=== PATIENT | female | born 1935 | race Caucasian/White ===

== ENCOUNTER 2016-11-21 13:22 | Outpatient (RCR) | payer MEDICARE, OTHER ==
--- OUTSIDE RECORDS SUMMARY | 2016-11-07 12:31 | XMS REPORT | Continuity of Care Document ---
Author Author [facility] Organization [facility] Address Unknown Phone Unavailable Care Team Providers Care Gas Meter Checker Name Role Phone PCP Unavailable Source Comments Some departments are not documenting in the electronic medical record. If you do not see the information that you expected, contact Release of Information in the Health Information Management department at [phone] for further assistance in locating additional records.[facility] Active Allergies and Adverse Reactions Allergen Noted Date Severity Reactions Comments Pcn 04/13/2013 RASH Tetracycline Hcl 04/13/2013 NAUSEA AND VOMITING Current Medications Prescription Sig. Disp. Refills Start End Date Status Date simvastatin (ZOCOR) 20 mg Take 20 mg by mouth at Active tablet bedtime daily. triazolam (HALCION) 0.25 Take 0.25 mg by mouth at Active mg tablet bedtime as needed. diltiazem CD (CARDIZEM Take 120 mg by mouth Active CD) 120 mg capsule daily. celecoxib (CELEBREX) 100 Take 100 mg by mouth Active mg capsule twice daily. esomeprazole DR(+) Take 40 mg by mouth every Active (NEXIUM) 40 mg capsule morning. WARFARIN SODIUM (WARFARIN Take by mouth. 2 mg on Active PO) Saturday, Saturday, and Saturday, then 4 mg on Saturday, Saturday, and Saturday aspirin 325 mg tablet Take 162.5 mg by mouth Active daily. SODIUM FLUORIDE 1 Dose by dental route Active (PREVIDENT DT) daily. Epinastine 0.05 % Drop Place 1 Drop into or Active around eye(s). One drop each eye BID traMADol (ULTRAM) 50 mg Take 50 mg by mouth at Active tablet bedtime daily. amitriptyline (ELAVIL) 10 Take 1 Tab by mouth at 30 Tab 2 04/13/20 Active mg tablet bedtime daily. 13 Active Problems Problem Noted Date Erythromelalgia (HCC) 04/14/2013 Social History Tobacco Use Types Packs/Day Years Used Date Never Smoker Last Filed Vital Signs Vital Sign Reading Time Taken Blood Pressure 126/77 04/13/2013 2:05 PM CDT Pulse 90 04/13/2013 2:05 PM CDT Temperature 36.2 C (97.1 F) 04/13/2013 2:04 PM CDT Respiratory Rate 16 04/13/2013 2:04 PM CDT Height 1.651 m (5' 5") 04/13/2013 2:04 PM CDT Weight 56.7 kg (125 lb) 04/13/2013 2:04 PM CDT Body Mass Index 20.8 04/13/2013 2:04 PM CDT Oxygen Saturation - - Plan of Care Health Maintenance Due Date Last Done Comments Physical (Comprehensive) 1942 Exam Pertussis Vaccine 1946 Tetanus Vaccine 1952 Shingles Vaccine 1995 Osteoporosis Screening 2000 Prevnar/Pneumovax (#1) 2000 Influenza Vaccine 05/31/2016 Results from Last 3 Months Not on file
[~2016-11-21 13:22] MED LIST: ALN70T; ASCO500T20; ASP325T PO; ASP81TEC; ASPI-84 PO; AVALIDE; CALC-80 PO; CEPH500C PO; CHOL200018 PO; CLCX100C PO; CLCX200C PO; CLIN-81 PO; COUMADIN; DIGO125T91; DIGO250T PO; DILT120C PO; DILT120T11 PO; EPIN5DRO3 OU; ESTR42.52 VG; ETD400T; EZET10TA5; FISH1CAP15 PO; FLAX100031 PO; GABA-486 PO; HALO0.5T; HCT25T; HYDR-3816 PO; HYDR1TAB PO; LORTAB 500 MG; LVF500T PO; MELO15TA14; METH5TAB2 PO; METR500T PO; MULT-974 PO; NAPR220C11 PO; NF-ESOM40C PO; NFTRIAZ.25 PO; NITR100C PO; ONDA8TAB13 PO; POTA99TA7 PO; RPN.25T; SIMV20TA3 PO; SIMV40TA2 PO; SMV20T PO; SODI100P15 DT; SULF-109 PO; SULF1TAB38 PO; TRAM50TA2 PO; VICODIN; WARF4TAB PO; WRF2T PO; [UNRECOGNIZED DRUG - OTHER]; [UNRECOGNIZED DRUG - OTHER] PO; elestat OU
== END 2016-11-21 16:00 | disposition home or self-care (01) ==
LOC: WOUNDCARE 13:22
PROVIDERS: ATTEND Surgery
DX: L97.311 Non-pressure chronic ulcer of right ankle limited to breakdown of skin (principal); M89.0 Algoneurodystrophy
CPT/HCPCS: 97597; 99212

== ENCOUNTER 2016-12-04 11:31 | Outpatient (RCR) | payer MEDICARE, OTHER ==
--- OUTSIDE RECORDS SUMMARY | 2016-12-04 11:35 | XMS REPORT | Continuity of Care Document ---
Author Author [facility] Organization [facility] Address Unknown Phone Unavailable Care Team Providers Care Personal Companion Name Role Phone PCP Unavailable Source Comments Some departments are not documenting in the electronic medical record. If you do not see the information that you expected, contact Release of Information in the Health Information Management department at [phone] for further assistance in locating additional records.[facility] Active Allergies and Adverse Reactions Allergen Noted [...]
== END 2016-12-04 16:00 | disposition home or self-care (01) ==
LOC: WOUNDCARE 11:31
PROVIDERS: ATTEND Surgery
DX: I89.0 Lymphedema, not elsewhere classified (principal); M89.0 Algoneurodystrophy
CPT/HCPCS: 99212

== ENCOUNTER 2017-01-30 13:56 | Outpatient (RCR) | payer MEDICARE, OTHER | END 2017-01-30 16:00 | disposition home or self-care (01) | LOC: WOUNDCARE 13:56 | PROVIDERS: ATTEND Surgery | DX: L97.312 Non-pressure chronic ulcer of right ankle with fat layer exposed (principal); I87.331 Chronic venous hypertension (idiopathic) with ulcer and inflammation of right lower extremity; I70.233 Atherosclerosis of native arteries of right leg with ulceration of ankle; G90.523 Complex regional pain syndrome I of lower limb, bilateral | CPT/HCPCS: 29581; 99212 ==

== ENCOUNTER → 2017-05-07 | Outpatient (CLI) | payer MEDICARE, OTHER | LOC: CARD 13:24 | PROVIDERS: ATTEND Physician Assistant | DX: I48.2 Chronic atrial fibrillation (principal); I25.10 Atherosclerotic heart disease of native coronary artery without angina pectoris; I10 Essential (primary) hypertension; E78.2 Mixed hyperlipidemia | CPT/HCPCS: 93306 ==

== ENCOUNTER 2017-10-14 11:33 | Emergency (ER) | payer MEDICARE, OTHER ==
[~2017-10-14] VITALS: Ht 160 cm; Wt 55.3 kg
[~2017-10-14 11:33] MED LIST changes: +ESTR42.52 TOP; -ESTR42.52 VG
--- OUTSIDE RECORDS SUMMARY | 2017-10-14 11:39 | XMS REPORT | Clinical Summary ---
Author Author [facility] Organization [facility] Address Unknown Phone Unavailable Care Team Providers Care Etched Circuit Processor Name Role Phone PCP Unavailable Source Comments Some departments are not documenting in the electronic medical record. If you do not see the information that you expected, contact Release of Information in the Health Information Management department at [phone] for further assistance in locating additional records.[facility] Allergies Active Allergy Reactions Severity Noted Date Comments Penicillins RASH 04/13/2013 Tetracycline Hcl NAUSEA AND VOMITING 04/13/2013 Current Medications Prescription Sig. Disp. Refills Start [...] Types Packs/Day Years Used Date Never Smoker Sex Assigned at Date Recorded Not on file Last Filed Vital Signs Vital Sign Reading Time Taken Blood Pressure 126/77 04/13/2013 2:05 PM CDT Pulse 90 04/13/2013 2:05 PM CDT Temperature 36.2 C (97.1 F) 04/13/2013 2:04 PM CDT Respiratory Rate 16 04/13/2013 2:04 PM CDT Oxygen Saturation - - Inhaled Oxygen - - Concentration Weight 56.7 kg (125 lb) 04/13/2013 2:04 PM CDT Height 165.1 cm (5' 5") 04/13/2013 2:04 PM CDT Body Mass Index 20.8 04/13/2013 2:04 PM CDT Plan of Treatment Health Maintenance Due Date Last Done Comments PHYSICAL (COMPREHENSIVE) 1942 EXAM PERTUSSIS VACCINE 1946 TETANUS VACCINE 1952 SHINGLES VACCINE 1995 OSTEOPOROSIS SCREENING 2000 PREVNAR/PNEUMOVAX (#1) 2000 INFLUENZA VACCINE 04/30/2017 Results Not on filefrom Last 3 Months
--- OUTSIDE RECORDS SUMMARY | 2017-10-14 11:41 | XMS REPORT | Continuity Of Care Document ---
Author Author [facility] Organization [facility] Address [address] [place] [address] Phone Care Team Providers Care Supplier Relationship Director Name Role Phone MARIA LUISA ESPARZA, NUBIA Shah AT SERGEI ROMAN MD PP Results Lab Results Visit/Account #[id number] (July 08, 2015 10:35am - July 09, 2015 11:15am ) Test Result Date/Time 58509-7: PROTHROMBIN TIME WITH INR PROTHROMBIN TIME(12.1-14.0 SEC) 13.4 SEC July 08, 2015 11:21am 96132-8: INR 1.01 Result Comments: INR reference interval applies to patients on anticoagulant therapy. Suggested INR therapeutic range for oral anticoagulant therapy: (Stabilized anticoagulated patients) Routine Therapy: 2.0 to 3.0 Recurrent Myocardial Infarction: 2.5 to 3.5 Mechanical Prosthetic Valves: 2.5 to 3.5 July 08, 2015 11:21am PARTIAL THROMBOPLASTIN TIME PARTIAL THROMBOPLASTIN TIME(22.2-37.4 SEC) 27.5 SEC July 08, 2015 11:21am Microbiology Results Visit/Account #[id number] (July 08, 2015 10:35am - July 09, 2015 11:15am ) Procedure Result 01776-2: MRSA SCREEN FOR INFEC CONTROL 11827-6: MRSA SCREEN FOR INFEC CONTROL Result Instance On July 08, 2015 5:33pm Source: [facility] Special Result Comments: No growth Allergies and Adverse Reactions Allergies and Adverse Reactions Patient Unit Number: [id number] Agent Type Reaction Severity Status SULFA (SULFONAMIDE ANTIBIOTICS) Drug Allergy Unknown Mild Active HYDROCHLOROTHIAZIDE Drug Allergy Unknown Mild Active TETRACYCLINE Drug Allergy Unknown Mild Active CLINDAMYCIN Drug Allergy Unknown Mild Active AMIODARONE Drug Allergy Unknown Mild Active LEVOFLOXACIN Drug Allergy rash Unknown Active DRONEDARONE Drug Allergy Unknown Mild Active PENICILLIN Drug Allergy Unknown Moderate Active Problem List Problem List Visit/Account #[id number] (July 08, 2015 10:35am - July 09, 2015 11:15am ) Active Problems: Code/Condition Comments Documented Start Date Documented Resolved Date Code (s) 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, BILATERAL July 09, 2015 Z23 ENCOUNTER FOR IMMUNIZATION July 09, 2015 R20.0 ANESTHESIA OF SKIN July 09, 2015 M62.81 MUSCLE WEAKNESS (GENERALIZED) July 09, 2015 I10 ESSENTIAL (PRIMARY) HYPERTENSION July 09, 2015 I48.91 UNSPECIFIED ATRIAL FIBRILLATION July 09, 2015 Z79.01 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 (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) USE OF ANTICOAGULANTS July 09, 2015 Z79.899 OTHER GROUP HOME (CURRENT) DRUG THERAPY July 09, 2015 Plan of Care Plan Of Care Visit/Account #[id number] (July 08, 2015 10:35am - July 09, 2015 11:15am ) Patient Instructions Instructions DI for Laminectomy Hydrocodone Vital Signs Vital Signs Visit/Account #[id number] (July 08, 2015 10:35am - July 09, 2015 11:15am ) Sign First Result Last Result Code(s) Blood Pressure 156/ 101 mm[Hg] On July 08, 2015 4:20pm 120/ 67 mm[Hg] On July 09, 2015 6:16am 8480-6 BP Systolic Heart Rate/Pulse Pulse Rate (adult): 86 /min On July 08, 2015 5:26pm Pulse Rate (adult): 94 /min On July 09, 2015 6:16am 8867-4 Heart Rate 8893-0 Pulse rate Respiratory Rate Respiratory Rate: 20 /min On July 08, 2015 4:20pm Respiratory Rate: 16 /min On July 09, 2015 6:16am 9279-1 Respiratory rate Temperature in Fahrenheit Temperature (Fahrenheit): 96.9 [degF] On July 08, 2015 11:04am Temperature (Fahrenheit): 96.9 [degF] On July 09, 2015 6:16am 8310-5 Body Temperature Functional Status Functional and Cognitive Status No Functional Status Data Medications Home Medications - Medications that the patient was taking prior to arrival at the hospital Visit/Account #[id number] (July 08, 2015 10:35am - July 09, 2015 11:15am ) Medication Route Sig/Schedule Precondition/Indication Comments/Instructions Codes Warfarin Sodium(WARFARIN SODIUM) 4 MG TABLET Dose: 4 MG ORAL TAKE ON ,,YUNIOR,SAT Rx Note Text Comments: 07/06/15: has stopped for upcoming surgery. Warfarin Sodium 4 MG Oral Tablet (RxNorm): 462171 Warfarin Sodium (WARFARIN SODIUM) NDC: 62497804188 Warfarin Sodium(WARFARIN SODIUM) 2 MG TABLET Dose: 2 MG ORAL SAT,SAT,SAT Rx Note Text Comments: 07/06/15: has stopped for upcoming surgery. Warfarin Sodium 2 MG Oral Tablet (RxNorm): 331988 Warfarin Sodium (WARFARIN SODIUM) NDC: 48317217962 Simvastatin(SIMVASTATIN) 20 MG TABLET Dose: 20 MG ORAL AT BEDTIME Simvastatin 20 MG Oral Tablet (RxNorm): 930146 Simvastatin (SIMVASTATIN) NDC: 37495664075 CARDIZEM(DILTIAZEM HCL) 120 MG TABLET Dose: 120 MG ORAL AT BEDTIME Diltiazem Hydrochloride 120 MG Oral Tablet [Cardizem] (RxNorm): 108726 CARDIZEM (DILTIAZEM HCL) NDC: 40248833435 Gabapentin(GABAPENTIN) 100 MG CAPSULE Dose: 100 MG ORAL TWICE A DAY gabapentin 100 MG Oral Capsule (RxNorm): 449169 Gabapentin (GABAPENTIN) NDC: 45404232371 Triazolam(TRIAZOLAM) 0.25 MG TABLET Dose: 0.25 MG ORAL AT BEDTIME Triazolam 0.25 MG Oral Tablet (RxNorm): 017801 Triazolam (TRIAZOLAM) NDC: 08760063562 NEXIUM(ESOMEPRAZOLE MAG TRIHYDRATE) 40 MG CAP Dose: 40 MG ORAL NEEDED UPSET STOMACH Esomeprazole 40 MG Delayed Release Oral Capsule [Nexium] (RxNorm): 815222 NEXIUM (ESOMEPRAZOLE MAG TRIHYDRATE) NDC: 19947898287 Methadone Hcl(METHADONE HCL) 5 MG TABLET Dose: 5 MG ORAL TWICE A WEEK TAKES ON AND SAT MORNING Methadone Hydrochloride 5 MG Oral Tablet [Dolophine] (RxNorm): 408542 Methadone Hcl (METHADONE HCL) NDC: 44920837806 MULTIVITAMINS(MULTIVITAMIN) 1 EACH TAB.CHEW Dose: 1 EACH ORAL DAILY MULTIVITAMINS (MULTIVITAMIN) NDC: 72982565545 Calcium Citrate + D Caplet(CALCIUM ACETATE/AL SULFATE) 1 TAB TABLET Dose: 1 TAB ORAL TWICE A DAY Calcium Citrate + D Caplet (CALCIUM ACETATE/AL SULFATE) NDC: 68222946214 Fish Oil 1,200 Mg Softgel(FISH OIL/DHA/EPA) 1 CAP CAPSULE Dose: 1 CAP ORAL DAILY Fish Oil 1,200 Mg Softgel (FISH OIL/DHA/EPA) NDC: 05807393685 VITAMIN D3(CHOLECALCIFEROL (VITAMIN D3)) 1000 UNIT CAPSULE Dose: 1000 UNIT ORAL DAILY Cholecalciferol 1000 UNT Oral Capsule (RxNorm): 913900 VITAMIN D3 (CHOLECALCIFEROL (VITAMIN D3)) NDC: 54344074592 ALEVE(NAPROXEN) 220 MG TABLET Dose: 220 MG ORAL NEEDED PAIN OR FEVER Naproxen sodium 220 MG Oral Tablet [Aleve] (RxNorm): 005077 ALEVE (NAPROXEN) NDC: 29382208119 Potassium Gluconate(POTASSIUM GLUCONATE) 595 ( 99 )MG TABLET Dose: 595 MG ORAL DAILY Potassium gluconate 2.5 MEQ Oral Tablet (RxNorm): 220548 Potassium Gluconate (POTASSIUM GLUCONATE) NDC: 69529117843 MOBIC(MeloxiCAM) 15 MG TABLET Dose: 15 MG ORAL DAILY NECK PAIN meloxicam 15 MG Oral Tablet [Mobic] (RxNorm): 600825 MOBIC (MeloxiCAM) NDC: 04118249833 VITAMIN B12(CYANOCOBALAMIN) 1000 MCG TABLET.ER Dose: 2500 MCG ORAL DAILY Vitamin B 12 1 MG Extended Release Oral Tablet (RxNorm): 255342 VITAMIN B12 (CYANOCOBALAMIN) NDC: 03182503226 Inpatient/Ordered Medications - Medications administered during hospital visit Visit/Account #[id number] (July 08, 2015 10:35am - July 09, 2015 11:15am ) Medication Route Sig/Schedule Precondition/Indication Comments/Instructions Codes IV Medication Carriers: VANCOCIN 1 GM/200 ML PM(VANCOMYCIN/DEXTROSE,ISO-OSM) 1 GM/200 ML INJECTION Dose: 200 ML INTRAVEN .Preop (Rate: 200 MLS/HR Duration: 1 HR) Clinical Indication: ABX Surgical Postop Rx Order Comments: Order filed UNV: Dose Warnings differ from electronic court recorder Label Comments: To be given by surgical staff within 2 hours of surgical incision Carriers: Vancomycin 5 MG/ML Injectable Solution (RxNorm): 376779 VANCOCIN 1 GM/200 ML PM (VANCOMYCIN/DEXTROSE,ISO-OSM) NDC: 03447737724 PEPCID INJ(FAMOTIDINE) 20 MG/2 ML INJECTION Dose: 2 ML INTRAVEN .PSCU.TRIPP Rx Order Comments: Order placed as verified: Dose Warnings differ from electronic court recorder Dose Warnings differ from electronic court recorder Label Comments: Push over at least 2 minutes Famotidine 10 MG/ML Injectable Solution (RxNorm): 946044 PEPCID INJ (FAMOTIDINE) NDC: 13690103114 ZOFRAN INJ(ONDansetron HCL) 4 MG/2 ML INJECTION Dose: 2 ML INTRAVEN .PSCU.TRIPP Rx Order Comments: Order placed as verified: Dose Warnings differ from electronic court recorder Dose Warnings differ from electronic court recorder Ondansetron 2 MG/ML Injectable Solution (RxNorm): 496884 ZOFRAN INJ (ONDansetron HCL) NDC: 15597620619 XYLOCAINE 1%- EPINEPHRINE (1:971591)(LIDOCAINE/EPINEPHRINE) 20 ML INJECTION Dose: 20 ML Route .STK-MED Epinephrine 0.01 MG/ML / Lidocaine Hydrochloride 10 MG/ML Injectable Solution [Xylocaine wit (RxNorm): 7975569 XYLOCAINE 1%- EPINEPHRINE (1:164817) (LIDOCAINE/EPINEPHRINE) NDC: 78013699735 GELFOAM SPONGE SZ 50(GELATIN) 1 EA MISC Dose: 1 EA TOPICALLY .STK-MED GELFOAM SPONGE SZ 50 (GELATIN) NDC: 58597210347 DILAUDID(HYDROmorphone HCL) 2 MG/ML INJECTION Dose: 2 MG Route .STK-MED 1 ML Hydromorphone Hydrochloride 2 MG/ML Prefilled Syringe (RxNorm): 606418 DILAUDID (HYDROmorphone HCL) NDC: 65853947492 BENADRYL INJ(DiphenhydrAMINE HCL) 50 MG/ML INJECTION Dose: 0.25 ML INTRAVEN NOW Label Comments: MAY INCREASE FALL RISK Special Dose Instructions: now x 1 in pacu only Diphenhydramine Hydrochloride 50 MG/ML Injectable Solution (RxNorm): 1808088 BENADRYL INJ (DiphenhydrAMINE HCL) NDC: 49628962449 IV Medication Carriers: LR(LACTATED RINGER'S) 1000 ML INJECTION Dose: 1000 ML INTRAVEN .Q10H (Rate: 100 MLS/HR Duration: 10 HR) Carriers: Calcium Chloride 0.0014 MEQ/ML / Potassium Chloride 0.004 MEQ/ML / Sodium Chloride 0.103 MEQ (RxNorm): 578016 LR (LACTATED RINGER'S) NDC: 84670269234 COLACE(DOCUSATE SODIUM) 100 MG CAP Dose: 100 MG ORAL TWICE A DAY Docusate Sodium 100 MG Oral Capsule (RxNorm): 2673096 COLACE (DOCUSATE SODIUM) NDC: 87112788484 CITRACAL D 315 MG/200 UNIT(CHRYSTAL CIT MAL/CHOLECALCIFEROL) 1 TAB TAB Dose: 1 TAB ORAL TWICE A DAY Label Comments: TAKE WITH FOOD Calcium Citrate 1500 MG / Cholecalciferol 250 UNT Oral Tablet (RxNorm): 425567 CITRACAL D 315 MG/200 UNIT (CHRYSTAL CIT MAL/CHOLECALCIFEROL) NDC: 62623754422 NEURONTIN(GABAPENTIN) 100 MG CAP Dose: 100 MG ORAL TWICE A DAY Label Comments: MAY INCREASE FALL RISK gabapentin 100 MG Oral Capsule (RxNorm): 229905 NEURONTIN (GABAPENTIN) NDC: 00279547398 MULTIVITAMINS/FOLIC AC/VIT C 1 TAB TAB Dose: 1 TAB ORAL DAILY (MULTIVITAMINS/FOLIC AC/VIT C) NDC: 68206081656 ALEVE(NAPROXEN) 220 MG TAB Dose: 220 MG ORAL NEEDED PRN Reason: PAIN OR FEVER Naproxen sodium 220 MG Oral Tablet (RxNorm): 860424 ALEVE (NAPROXEN) NDC: 73698943959 ZOCOR(SIMVASTATIN) 20 MG TAB Dose: 20 MG ORAL AT BEDTIME Label Comments: TERATOGENIC. WOMEN SHOULD NOT HANDLE OR CRUSH. Simvastatin 20 MG Oral Tablet (RxNorm): 430182 ZOCOR (SIMVASTATIN) NDC: 56924248901 HALCION(TRIAZOLAM) 0.125 MG TAB Dose: 0.25 MG ORAL AT BEDTIME Label Comments: MAY INCREASE FALL RISK Triazolam 0.125 MG Oral Tablet (RxNorm): 307194 HALCION (TRIAZOLAM) NDC: 92302191291 Discharge Medications - Medications that patient should continue to take. Review with physician Visit/Account #[id number] (July 08, 2015 10:35am - July 09, 2015 11:15am ) Medication Route Sig/Schedule Precondition/Indication Comments/Instructions Codes Warfarin Sodium(WARFARIN SODIUM) 4 MG TABLET Dose: 4 MG ORAL TAKE ON S,,YUNIOR,SAT Rx Note Text Comments: 07/06/15: has stopped for upcoming surgery. Warfarin Sodium 4 MG Oral Tablet (RxNorm): 296444 Warfarin Sodium (WARFARIN SODIUM) NDC: 94389928476 Warfarin Sodium(WARFARIN SODIUM) 2 MG TABLET Dose: 2 MG ORAL MON,WED,FRI Rx Note Text Comments: 07/06/15: has stopped for upcoming surgery. Warfarin Sodium 2 MG Oral Tablet (RxNorm): 365990 Warfarin Sodium (WARFARIN SODIUM) NDC: 73063749575 Simvastatin(SIMVASTATIN) 20 MG TABLET Dose: 20 MG ORAL AT BEDTIME Simvastatin 20 MG Oral Tablet (RxNorm): 863930 Simvastatin (SIMVASTATIN) NDC: 66111661076 CARDIZEM(DILTIAZEM HCL) 120 MG TABLET Dose: 120 MG ORAL AT BEDTIME Diltiazem Hydrochloride 120 MG Oral Tablet [Cardizem] (RxNorm): 608411 CARDIZEM (DILTIAZEM HCL) NDC: 72636093583 Gabapentin(GABAPENTIN) 100 MG CAPSULE Dose: 100 MG ORAL TWICE A DAY gabapentin 100 MG Oral Capsule (RxNorm): 135127 Gabapentin (GABAPENTIN) NDC: 98963614903 Triazolam(TRIAZOLAM) 0.25 MG TABLET Dose: 0.25 MG ORAL AT BEDTIME Triazolam 0.25 MG Oral Tablet (RxNorm): 149700 Triazolam (TRIAZOLAM) NDC: 74035710060 NEXIUM(ESOMEPRAZOLE MAG TRIHYDRATE) 40 MG CAP Dose: 40 MG ORAL NEEDED UPSET STOMACH Esomeprazole 40 MG Delayed Release Oral Capsule [Nexium] (RxNorm): 715992 NEXIUM (ESOMEPRAZOLE MAG TRIHYDRATE) NDC: 86975797886 Methadone Hcl(METHADONE HCL) 5 MG TABLET Dose: 5 MG ORAL TWICE A WEEK TAKES ON AND SAT MORNING Methadone Hydrochloride 5 MG Oral Tablet [Dolophine] (RxNorm): 968154 Methadone Hcl (METHADONE HCL) NDC: 53482077877 MULTIVITAMINS(MULTIVITAMIN) 1 EACH TAB.CHEW Dose: 1 EACH ORAL DAILY MULTIVITAMINS (MULTIVITAMIN) NDC: 01238575548 Calcium Citrate + D Caplet(CALCIUM ACETATE/AL SULFATE) 1 TAB TABLET Dose: 1 TAB ORAL TWICE A DAY Calcium Citrate + D Caplet (CALCIUM ACETATE/AL SULFATE) NDC: 65593328925 Fish Oil 1,200 Mg Softgel(FISH OIL/DHA/EPA) 1 CAP CAPSULE Dose: 1 CAP ORAL DAILY Fish Oil 1,200 Mg Softgel (FISH OIL/DHA/EPA) NDC: 30037945488 VITAMIN D3(CHOLECALCIFEROL (VITAMIN D3)) 1000 UNIT CAPSULE Dose: 1000 UNIT ORAL DAILY Cholecalciferol 1000 UNT Oral Capsule (RxNorm): 713881 VITAMIN D3 (CHOLECALCIFEROL (VITAMIN D3)) NDC: 15321050779 ALEVE(NAPROXEN) 220 MG TABLET Dose: 220 MG ORAL NEEDED PAIN OR FEVER Naproxen sodium 220 MG Oral Tablet [Aleve] (RxNorm): 179838 ALEVE (NAPROXEN) NDC: 07773705776 Potassium Gluconate(POTASSIUM GLUCONATE) 595 ( 99 )MG TABLET Dose: 595 MG ORAL DAILY Potassium gluconate 2.5 MEQ Oral Tablet (RxNorm): 362190 Potassium Gluconate (POTASSIUM GLUCONATE) NDC: 36013478709 MOBIC(MeloxiCAM) 15 MG TABLET Dose: 15 MG ORAL DAILY NECK PAIN meloxicam 15 MG Oral Tablet [Mobic] (RxNorm): 491696 MOBIC (MeloxiCAM) NDC: 89046803023 VITAMIN B12(CYANOCOBALAMIN) 1000 MCG TABLET.ER Dose: 2500 MCG ORAL DAILY Vitamin B 12 1 MG Extended Release Oral Tablet (RxNorm): 926963 VITAMIN B12 (CYANOCOBALAMIN) NDC: 37229341440 COLACE(DOCUSATE SODIUM) 100 MG CAPSULE Dose: 100 MG ORAL TWICE A DAY Docusate Sodium 100 MG Oral Capsule [Colace] (RxNorm): 1890311 COLACE (DOCUSATE SODIUM) ND: 71304663699 HYDROcodone BIT/ACETAMINOPHEN 7.5-325 MG(HYDROcodone BIT/ACETAMINOPHEN) 1 EACH TABLET Dose: 1-2 TAB ORAL Q4H MODERATE PAIN Acetaminophen 325 MG / Hydrocodone Bitartrate 7.5 MG Oral Tablet (RxNorm): 980259 HYDROcodone BIT/ACETAMINOPHEN 7.5-325 MG (HYDROcodone BIT/ACETAMINOPHEN) ND: 94020593688 History Of Encounters Encounters Visit/Account #[id number] (July 08, 2015 10:35am - July 09, 2015 11:15am ) Account Status Physican Of Record Reason For Visit Visit Diagnosis Start Date/Time Stop Date/Time [facility] NUBIA GLASS MD 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 Discharge Instructions Discharge Instructions Visit/Account #[id number] (July 08, 2015 10:35am - July 09, 2015 11:15am ) DISCHARGE INSTRUCTIONS Physician Documentation PROVIDER INSTRUCTIONS Discharge Diet As Tolerated Discharge Activity/Weight Bearing Status No heavy lifting, bending, or twisting. No lifting over 10 lbs. Discharge Diet As Tolerated Discharge Activity/Weight Bearing Status No heavy lifting, bending, or twisting. No lifting over 10 lbs. REASON TO CALL PROVIDER Notify Physician if: Increased pain, redness. or swelling to incision. Temp over 101. Nausea or vomiting that do not resolve. FOLLOW UP APPOINTMENTS Follow Up With MARRY BEAVERS ON 08/24/15 AT 2:30P (1 MO POST OP) DR GLASS ON 10/12/15 AT 11:00A (3 MO POST OP) Social History Social History No Social History Data. Immunizations Immunizations Visit/Account #[id number] (July 08, 2015 10:35am - July 09, 2015 11:15am ) Immunization Date Comments/Instructions Codes FLUCELVAX (18+ YRS)(INFLUENZA VACC AGES 18 (PF)) 0.5 ML INJECTION July 09, 2015 9:52am FLUCELVAX (18+ YRS) (INFLUENZA VACC AGES 18 (PF)) CVX: 140 FLUCELVAX (18+ YRS) (INFLUENZA VACC AGES 18 (PF)) [facility]: [id number]
--- OUTSIDE RECORDS SUMMARY | 2017-10-14 11:42 | XMS REPORT | Continuity of Care Document ---
Author Author [facility] Organization [facility] Address Unknown Phone Unavailable Allergies Active Description Code Type Severity Reaction Onset Reported/Identified Relationship to Patient Clinical Status Yes Penicillins [id number] Drug Allergy Unknown N/A 10/31/2006 Yes sulfamethoxazole [id number] Drug Allergy Severe CHEST TIGHTNESS 03/15/2010 Yes trimethoprim [id number] Drug Allergy Severe CHEST TIGHTNESS 03/15/2010 Yes amiodarone [id number] Drug Allergy Moderate MADE HER COLD 04/12/2016 Yes clindamycin [id number] Drug Allergy Moderate HEARTBURN 04/12/2016 Yes dronedarone [id number] Drug Allergy Unknown N/A 04/12/2016 Yes hydrochlorothiazide [id number] Drug Allergy Unknown N/A 04/12/2016 Yes levofloxacin [id number] Drug Allergy Unknown CHEST TIGHTNESS 04/12/2016 Yes TETRACYLCLINE TETRACYLCLINE Unknown SEVERE HEARTBUR 04/12/2016 Yes metoprolol [id number] Drug Allergy Unknown N/A 04/18/2016 Yes Penicillins [id number] Drug Allergy Unknown RASH, HAS RECEI 04/18/2016 Medications There is no data. Problems Date Dx Coded Attending Type Code Diagnosis Diagnosed By 08/29/1599 MALLORY SOLIS MD Ot L97.311 NON-PRS CHRONIC ULCER OF RIGHT ANKLE CRUZ 08/29/1599 MALLORY SOLIS MD Ot M89.061 ALGONEURODYSTROPHY, RIGHT LOWER LEG 08/29/1599 MALLORY SOLIS MD Ot I89.0 LYMPHEDEMA, NOT ELSEWHERE CLASSIFIED 08/29/1599 MALLORY SOLIS MD, Ot M89.061 ALGONEURODYSTROPHY, RIGHT LOWER LEG 03/18/2010 Ot 272.4 03/18/2010 Ot 401.9 03/18/2010 Ot 427.31 03/18/2010 Ot 477.9 03/18/2010 Ot 787.02 03/18/2010 Ot 790.92 03/18/2010 Ot E930.8 03/18/2010 Ot V13.02 06/18/2013 VIJAY SIDDIQUI MD Ot 272.0 PURE HYPERCHOLESTEROLEM 06/18/2013 VIJAY SIDDIQUI MD Ot 272.4 HYPERLIPIDEMIA NEC/NOS 06/18/2013 VIJAY SIDDIQUI MD Ot 300.00 ANXIETY STATE NOS 06/18/2013 VIJAY SIDDIQUI MD Ot 401.9 HYPERTENSION NOS 06/18/2013 VIJAY SIDDIQUI MD Ot 414.[address] 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 06/18/2013 VIJAY SIDDIQUI MD Ot 785.1 PALPITATIONS 06/18/2013 VIJAY SIDDIQUI MD Ot 786.05 SHORTNESS OF BREATH 06/18/2013 VIJAY SIDDIQUI MD Ot 786.09 RESPIRATORY ABNORM NEC 06/18/2013 VIJAY SIDDIQUI MD Ot 786.50 CHEST PAIN NOS 02/20/2015 HAYDER VERGARA Ot 599.0 URIN TRACT INFECTION NOS 02/20/2015 HAYDER VERGARA Ot 616.10 VAGINITIS NOS 02/20/2015 HAYDER VERGARA Ot 625.9 FEM GENITAL SYMPTOMS NOS 02/26/2015 SERGEI ROMAN MD R Ot 722.52 03/18/2015 SERGEI ROMAN MD R Ot 722.52 06/09/2015 SERGEI ROMAN MD R Ot 722.52 06/29/2015 VIJAY SIDDIQUI MD Ot 272.4 06/29/2015 VIJAY SIDDIQUI MD Ot 401.9 06/29/2015 VIJAY SIDDIQUI MD Ot 414.9 06/29/2015 VIJAY SIDDIQUI MD Ot 427.31 07/06/2015 SERGEI ROMAN MD R Ot 722.52 07/06/2015 VIJAY SIDDIQUI MD Ot 272.4 07/06/2015 VIJAY SIDDIQUI MD Ot 401.9 07/06/2015 VIJAY SIDDIQUI MD Ot 414.9 07/06/2015 VIJAY SIDDIQUI MD Ot 427.31 07/06/2015 ABEL ESPARZA SERGEI R Ot 738.5 07/06/2015 ABEL ESPARZA, SERGEI R Ot V72.63 07/06/2015 ABEL ESPARZA, SERGEI R Ot V72.81 07/06/2015 ARTUR ESPARZA, VIJAY Covarrubias Ot 272.4 07/06/2015 ARTUR ESPARZA, VIJAY J Ot 401.9 07/06/2015 ARTUR ESPARZA, VIJAY J Ot 414.9 07/06/2015 ARTUR ESPARZA, MALIHAHAR J Ot 427.31 07/12/2015 ABEL ESPARZA, SERGEI R Ot 722.52 07/12/2015 ARTUR ESPARZA, VIJAY J Ot 272.4 07/12/2015 VIJAY SIDDIQUI MD Ot 401.9 07/12/2015 VIJAY SIDDIQUI MD Ot 414.9 07/12/2015 ARTUR ESPARZA, VIJAY J Ot 427.31 07/12/2015 ABEL ESPARZA, SERGEI R Ot 738.5 07/12/2015 ABEL ESPARZA SERGEI R Ot V72.63 07/12/2015 ABEL ESPARZA, SERGEI R Ot V72.81 07/13/2015 ROBERT CHILEL DO Ot G89.18 OTHER ACUTE POSTPROCEDURAL PAIN 07/15/2015 Ot 695.9 07/15/2015 Ot 782.0 07/15/2015 Ot 785.9 07/15/2015 Ot 401.9 07/15/2015 Ot 427.31 07/15/2015 VIJAY SIDDIQUI MD Ot 272.4 07/15/2015 VIJAY SIDDIQUI MD J Ot 396.3 07/15/2015 VIJAY SIDDIQUI MD J Ot 397.0 07/15/2015 ARTUR ESPARZA, VIJAY J Ot 401.9 07/15/2015 ARTUR ESPARZA, VIJAY J Ot 414.00 07/15/2015 VIJAY SIDDIQUI MD J Ot 427.31 07/15/2015 MATILDA ROMAN MDYD R Ot 722.52 07/15/2015 ARTUR ESPARZA, VIJAY J Ot 272.4 07/15/2015 VIJAY SIDDIQUI MD J Ot 401.9 07/15/2015 VIJAY SIDDIQUI MD J Ot 414.9 07/15/2015 VIJAY SIDDIQUI MD J Ot 427.31 07/15/2015 ABEL ESPARZA, SERGEI R Ot 738.5 07/15/2015 ABEL ESPARZA, SERGEI R Ot V72.63 07/15/2015 ABEL ESPARZA, SERGEI R Ot V72.81 07/15/2015 ARTUR ESPARZA, BASHAR J Ot 272.4 07/15/2015 ARTUR ESPARZA, BASHAR J Ot 401.9 07/15/2015 ARTUR ESPARZA, BASHAR J Ot 414.9 07/15/2015 ARTUR ESPARZA, BASHAR J Ot 427.31 07/15/2015 ABEL ESPARZA, SERGEI R Ot 738.5 07/15/2015 ABEL ESPARZA, SERGEI R Ot V72.63 07/15/2015 AEBL ESPARZA, SERGEI R Ot V72.81 07/15/2015 ABEL ESPARZA, SERGEI R Ot 722.52 07/15/2015 ARTUR ESPARZA, BASHAR J Ot 272.4 07/15/2015 ARTUR ESPARZA, BASHAR J Ot 396.3 07/15/2015 ARTUR ESPARZA, BASHAR J Ot 397.0 07/15/2015 ARTUR ESPARZA, BASHAR J Ot 401.9 07/15/2015 ARTUR ESPARZA, BASHAR J Ot 414.00 07/15/2015 ARTUR ESPARZA, BASHAR J Ot 427.31 07/20/2015 ABEL ESPARZA, SERGEI R Ot 738.5 07/20/2015 ABEL ESPARZA, SERGEI R Ot V72.63 07/20/2015 ABEL ESPARZA, SERGEI R Ot V72.81 07/20/2015 ARTUR ESPARZA, BASHAR J Ot 272.4 07/20/2015 ARTUR ESPARZA, BASHAR J Ot 401.9 07/20/2015 ARTUR ESPARZA, BASHAR J Ot 414.9 07/20/2015 ARTUR ESPARZA, BASHAR J Ot 427.31 07/26/2015 ABEL ESPARZA, SERGEI R Ot 738.5 07/26/2015 ABEL ESPARZA, SERGEI R Ot V72.63 07/26/2015 ABEL ESPARZA, SERGEI R Ot V72.81 07/27/2015 ABEL ESPARZA, SERGEI R Ot 738.5 07/27/2015 ABEL ESPARZA, SERGEI R Ot V72.63 07/27/2015 ABEL ESPARZA, SERGEI R Ot V72.81 09/02/2015 Ot 695.9 09/02/2015 Ot 782.0 09/02/2015 Ot 785.9 09/02/2015 Ot 401.9 09/02/2015 Ot 427.31 09/02/2015 ARTUR ESPARZA, VIJAY Covarrubias Ot 272.4 09/02/2015 ARTUR ESPARZA, VIJAY Covarrbuias Ot 396.3 09/02/2015 ARTUR ESPARZA, VIJAY Covarrubias Ot 397.0 09/02/2015 ARTUR ESPARZA, VIJAY Covarrubias Ot 401.9 09/02/2015 ARTUR ESPARZA, VIJAY Covarrubias Ot 414.00 09/02/2015 ARTUR ESPARZA, VIJAY J Ot 427.31 09/02/2015 ABEL ESPARZA, SERGEI R Ot 722.52 09/02/2015 ARTUR ESPARZA, VIJAY Covarrubias Ot 272.4 09/02/2015 ARTUR ESPARZA, VIJAY Covarrubias Ot 401.9 09/02/2015 VIJAY SIDDIQUI MD Ot 414.9 09/02/2015 VIJAY SIDDIQUI MD J Ot 427.31 09/02/2015 ABEL ESPARZA, SERGEI R Ot 738.5 09/02/2015 ABEL ESPARZA, SERGEI R Ot V72.63 09/02/2015 ABEL ESPARZA, SERGEI R Ot V72.81 09/02/2015 ABEL ESPARZA, SERGEI R Ot 722.52 09/02/2015 ARTUR ESPARZA, VIJAY Covarrubias Ot 272.4 09/02/2015 ARTUR ESPARZA, VIJAY Covarrubias Ot 401.9 09/02/2015 ARTUR ESPARZA, VIJAY J Ot 414.9 09/02/2015 ARTUR ESPARZA, VIJAY Covarrubias Ot 427.31 09/02/2015 ABEL ESPARZA, SERGEI R Ot 738.5 09/02/2015 ABEL ESPARZA, SERGEI R Ot V72.63 09/02/2015 ABEL ESPARZA, SERGEI R Ot V72.81 09/22/2015 VIJAY SIDDIQUI MD Ot E78.5 09/22/2015 VIJAY SIDDIQUI MD Ot I10 09/22/2015 VIJAY SIDDIQUI MD Ot I25.9 09/22/2015 VIJAY SIDDIQUI MD Ot I48.91 10/03/2015 VIJAY SIDDIQUI MD Ot E78.5 10/03/2015 VIJAY SIDDIQUI MD Ot I10 10/03/2015 VIJAY SIDDIQUI MD Ot I25.9 10/03/2015 VIJAY SIDDIQUI MD Ot I48.91 01/28/2016 HAYDER VERGARA Ot N76.4 ABSCESS OF VULVA 01/30/2016 HAYDER VERGARA Ot N76.4 ABSCESS OF VULVA 01/30/2016 HAYDER VERGARA Ot N76.4 ABSCESS OF VULVA 01/30/2016 HAYDER VERGARA Ot N76.4 ABSCESS OF VULVA 02/20/2016 HAYDER VERGARA Ot N76.4 ABSCESS OF VULVA 04/12/2016 SERGEI ROMAN MD Ot 722.52 LUMB/LUMBOSAC DISC DEGEN 04/12/2016 VIJAY SIDDIQUI MD Ot 272.4 HYPERLIPIDEMIA NEC/NOS 04/12/2016 VIJAY SIDDIQUI MD Ot 401.9 HYPERTENSION NOS 04/12/2016 VIJAY SIDDIQUI MD Ot 414.9 CHR ISCHEMIC HRT DIS NOS 04/12/2016 VIJAY SIDDIQUI MD Ot 427.31 ATRIAL FIBRILLATION 04/12/2016 VIJAY SIDDIQUI MD Ot E78.5 HYPERLIPIDEMIA, UNSPECIFIED 04/12/2016 VIJAY SIDDIQUI MD Ot I10 ESSENTIAL (PRIMARY) HYPERTENSION 04/12/2016 VIJAY SIDDIQUI MD Ot I25.9 CHRONIC ISCHEMIC HEART DISEASE, UNSPECIF 04/12/2016 VIJAY SIDDIQUI MD Ot I48.91 UNSPECIFIED ATRIAL FIBRILLATION 04/12/2016 SERGEI ROMAN MD Ot 738.5 OTHER ACQ BACK DEFORMITY 04/12/2016 SERGEI ROMAN MD Ot V72.63 PRE-PROCEDURAL LABORATORY EXAMINATION 04/12/2016 SERGEI ROMAN MD, Ot V72.81 [id number] CARDIOVASCULAR 04/12/2016 MALLORY BLAS MD, Ot T84.9XXA [facility] COMP OF INTERNAL ORTHOPEDIC PROSTH 04/12/2016 MALLORY BLAS MD, Ot Z01.818 ENCOUNTER FOR OTHER PREPROCEDURAL EXAMIN 04/12/2016 MALLORY BLAS MD, Ot Z11.2 ENCOUNTER FOR SCREENING FOR OTHER BACTER 04/13/2016 MALLORY BLAS MD Ot T84.9XXA UNSP COMP OF INTERNAL ORTHOPEDIC PROSTH 04/13/2016 MALLORY BLAS MD Ot Z01.818 ENCOUNTER FOR OTHER PREPROCEDURAL EXAMIN 04/13/2016 MALLORY BLAS MD Ot Z11.2 ENCOUNTER FOR SCREENING FOR OTHER BACTER 04/18/2016 MALLORY BLAS MD Ot T84.9XXA UNSP COMP OF INTERNAL ORTHOPEDIC PROSTH 04/18/2016 MALLORY BLAS MD Ot Z01.818 ENCOUNTER FOR OTHER PREPROCEDURAL EXAMIN 04/18/2016 MALLORY BLAS MD Ot Z11.2 ENCOUNTER FOR SCREENING FOR OTHER BACTER 04/18/2016 ABEL ESPARZA, SERGEI Moreno Ot 722.52 LUMB/LUMBOSAC DISC DEGEN 04/18/2016 VIJAY SIDDIQUI MD Ot 272.4 HYPERLIPIDEMIA NEC/NOS 04/18/2016 VIJAY SIDDIQUI MD Ot 401.9 HYPERTENSION NOS 04/18/2016 VIJAY SIDDIQUI MD J Ot 414.9 CHR ISCHEMIC HRT DIS NOS 04/18/2016 ARTUR ESPARZA, VIJAY J Ot 427.31 ATRIAL FIBRILLATION 04/18/2016 VIJAY SIDDIQUI MD Ot E78.5 HYPERLIPIDEMIA, UNSPECIFIED 04/18/2016 VIJAY SIDDIQUI MD Ot I10 ESSENTIAL (PRIMARY) HYPERTENSION 04/18/2016 VIJAY SIDDIQUI MD Ot I25.9 CHRONIC ISCHEMIC HEART DISEASE, UNSPECIF 04/18/2016 VIJAY SIDDIQUI MD Ot I48.91 UNSPECIFIED ATRIAL FIBRILLATION 04/18/2016 SERGEI ROMAN MD R Ot 738.5 OTHER ACQ BACK DEFORMITY 04/18/2016 SERGEI ROMAN MD R Ot V72.63 PRE-PROCEDURAL LABORATORY EXAMINATION 04/18/2016 SERGEI ROMAN MD Ot V72.81 [id number] CARDIOVASCULAR 04/18/2016 CK SANDOVAL Ot I25.[address] 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 04/18/2016 MALLORY BLAS MD Ot E78.0 PURE HYPERCHOLESTEROLEMIA 04/18/2016 MALLORY BLAS MD Ot F41.9 ANXIETY DISORDER, UNSPECIFIED 04/18/2016 MALLORY BLAS MD Ot I10 ESSENTIAL (PRIMARY) HYPERTENSION 04/18/2016 MALLORY BLAS MD Ot M81.0 AGE-RELATED OSTEOPOROSIS W/O CURRENT PAT 04/18/2016 MALLORY BLAS MD Ot T84.84XA PAIN DUE TO INTERNAL ORTHOPEDIC PROSTH D 04/18/2016 MALLORY BLAS MD Ot Z79.01 ASSISTED (CURRENT) USE OF ANTICOAGULANT 04/18/2016 CK SANDOVAL Ot E78.2 MIXED HYPERLIPIDEMIA 04/18/2016 CK SANDOVAL K Ot I10 ESSENTIAL (PRIMARY) HYPERTENSION 04/18/2016 CK SANDOVAL Ot I25.10 A[address]SCL HEART DISEASE OF 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 04/19/2016 CK SANDOVAL Ot I48.0 PAROXYSMAL ATRIAL FIBRILLATION 04/19/2016 MALLORY BLAS MD Ot E78.0 PURE HYPERCHOLESTEROLEMIA 04/19/2016 MALLORY BLAS MD Ot F41.9 ANXIETY DISORDER, UNSPECIFIED 04/19/2016 MALLORY BLAS MD Ot I10 ESSENTIAL (PRIMARY) HYPERTENSION 04/19/2016 MALLORY BLAS MD, Ot M81.0 AGE-RELATED OSTEOPOROSIS W/O CURRENT PAT 04/19/2016 MALLORY BLAS MD, Ot T84.84XA PAIN DUE TO INTERNAL ORTHOPEDIC PROSTH D 04/19/2016 MALLORY BLAS MD, Ot Z79.01 ASSISTED (CURRENT) USE OF ANTICOAGULANT 04/24/2016 MALLORY BLAS MD Ot E78.0 PURE HYPERCHOLESTEROLEMIA 04/24/2016 MALLORY BLAS MD Ot F41.9 ANXIETY DISORDER, UNSPECIFIED 04/24/2016 MALLORY BLAS MD, Ot I10 ESSENTIAL (PRIMARY) HYPERTENSION 04/24/2016 MALLORY BLAS MD, Ot M81.0 AGE-RELATED OSTEOPOROSIS W/O CURRENT PAT 04/24/2016 MALLORY BLAS MD, Ot T84.84XA PAIN DUE TO INTERNAL ORTHOPEDIC PROSTH D 04/24/2016 MALLORY BLAS MD, Ot Z79.01 ASSISTED (CURRENT) USE OF ANTICOAGULANT 05/11/2016 CK SANDOVAL Ot E78.2 MIXED HYPERLIPIDEMIA 05/11/2016 CK SANDOVAL Ot I10 ESSENTIAL (PRIMARY) HYPERTENSION 05/11/2016 CK SANDOVAL Ot I25.10 ATHSCL HEART DISEASE OF 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 05/28/2016 VIJAY SIDDIQUI MD Ot 397.0 TRICUSPID VALVE DISEASE 05/28/2016 VIJAY SIDDIQUI MD Ot 401.9 HYPERTENSION NOS 05/28/2016 VIJAY SIDDIQUI MD Ot 414.00 CORON ATHEROSCLER NOS TYPE VESSEL, NATIV 05/28/2016 VIJAY SIDDIQUI MD Ot 427.31 ATRIAL FIBRILLATION 05/28/2016 ABEL ESPARZA, SERGEI Moreno Ot 722.52 LUMB/LUMBOSAC DISC DEGEN 05/28/2016 VIJAY SIDDIQUI MD Ot 272.4 HYPERLIPIDEMIA NEC/NOS 05/28/2016 VIJAY SIDDIQUI MD Ot 401.9 HYPERTENSION NOS 05/28/2016 VIJAY SIDDIQUI MD Ot 414.9 CHR ISCHEMIC HRT DIS NOS 05/28/2016 VIJAY SIDDIQUI MD Ot 427.31 ATRIAL FIBRILLATION 05/28/2016 VIJAY SIDDIQUI MD Ot E78.5 HYPERLIPIDEMIA, UNSPECIFIED 05/28/2016 VIJAY SIDDIQUI MD Ot I10 ESSENTIAL (PRIMARY) HYPERTENSION 05/28/2016 VIJAY SIDDIQUI MD Ot I25.9 CHRONIC ISCHEMIC HEART DISEASE, UNSPECIF 05/28/2016 VIJAY SIDDIQUI MD Ot I48.91 UNSPECIFIED ATRIAL FIBRILLATION 05/28/2016 SERGEI ROMAN MD Ot 738.5 OTHER ACQ BACK DEFORMITY 05/28/2016 SERGEI ROMAN MD Ot V72.63 PRE-PROCEDURAL LABORATORY EXAMINATION 05/28/2016 SERGEI ROMAN MD Ot V72.81 [id number] CARDIOVASCULAR 05/28/2016 CK SANDOVAL Ot E78.2 MIXED HYPERLIPIDEMIA 05/28/2016 CK SANDOVAL Ot I10 ESSENTIAL (PRIMARY) HYPERTENSION 05/28/2016 CK SANDOVAL Ot I25.10 ATHSCL HEART DISEASE OF 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5 HYPERLIPIDEMIA, UNSPECIFIED 07/03/2016 VIJAY SIDDIQUI MD Ot I10 ESSENTIAL (PRIMARY) HYPERTENSION 07/03/2016 VIJAY SIDDIQUI MD Ot I25.9 CHRONIC ISCHEMIC HEART DISEASE, UNSPECIF 07/03/2016 VIJAY SIDDIQUI MD Ot I48.91 UNSPECIFIED ATRIAL FIBRILLATION 07/03/2016 SERGEI ROMAN MD R Ot 738.5 OTHER ACQ BACK DEFORMITY 07/03/2016 SERGEI ROMAN MD Ot V72.63 PRE-PROCEDURAL LABORATORY EXAMINATION 07/03/2016 SERGEI ROMAN MD, Ot V72.81 [id number] CARDIOVASCULAR 07/03/2016 CK SANDOVAL Ot E78.2 MIXED HYPERLIPIDEMIA 07/03/2016 CK SANDOVAL Ot I10 ESSENTIAL (PRIMARY) HYPERTENSION 07/03/2016 CK SANDOVAL Ot I25.10 A[address] HEART DISEASE OF [place] CORONARY 07/03/2016 CK SANDOVAL Ot I48.0 PAROXYSMAL ATRIAL FIBRILLATION 07/04/2016 SERGEI ROMAN MD, Ot R94.5 ABNORMAL RESULTS OF LIVER FUNCTION STUDI 07/18/2016 SERGEI ROMAN MD Ot R74.8 ABNORMAL LEVELS OF OTHER SERUM ENZYMES 07/19/2016 SERGEI ROMAN MD, Ot R74.8 ABNORMAL LEVELS OF OTHER SERUM ENZYMES 07/25/2016 SERGEI ROMAN MD, Ot R94.5 ABNORMAL RESULTS OF LIVER FUNCTION STUDI 07/26/2016 Ot 695.9 ERYTHEMATOUS COND NOS 07/26/2016 Ot 782.0 SKIN SENSATION DISTURB 07/26/2016 Ot 785.9 CARDIOVAS SYS SYMP NEC 07/26/2016 Ot 401.9 HYPERTENSION NOS 07/26/2016 Ot 427.31 ATRIAL FIBRILLATION 07/26/2016 VIJAY SIDDIQUI MD Ot 272.4 HYPERLIPIDEMIA NEC/NOS 07/26/2016 VIJAY SIDDIQUI MD Ot 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 07/26/2016 VIJAY SIDDIQUI MD Ot 397.0 TRICUSPID VALVE DISEASE 07/26/2016 VIJAY SIDDIQUI MD Ot 401.9 HYPERTENSION NOS 07/26/2016 VIJAY SIDDIQUI MD Ot 414.00 CORON ATHEROSCLER NOS TYPE VESSEL, NATIV 07/26/2016 VIJAY SIDDIQUI MD Ot 427.31 ATRIAL FIBRILLATION 07/26/2016 SERGEI ROMAN MD Ot 722.52 LUMB/LUMBOSAC DISC DEGEN 07/26/2016 VIJAY SIDDIQUI MD Ot 272.4 HYPERLIPIDEMIA NEC/NOS 07/26/2016 VIJAY SIDDIQUI MD Ot 401.9 HYPERTENSION NOS 07/26/2016 VIJAY SIDDIQUI MD Ot 414.9 CHR ISCHEMIC HRT DIS NOS 07/26/2016 VIJAY SIDDIQUI MD Ot 427.31 ATRIAL FIBRILLATION 07/26/2016 VIJAY SIDDIQUI MD Ot E78.5 HYPERLIPIDEMIA, UNSPECIFIED 07/26/2016 VIJAY SIDDIQUI MD Ot I10 ESSENTIAL (PRIMARY) HYPERTENSION 07/26/2016 VIJAY SIDDIQUI MD Ot I25.9 CHRONIC ISCHEMIC HEART DISEASE, UNSPECIF 07/26/2016 VIJAY SIDDIQUI MD Ot I48.91 UNSPECIFIED ATRIAL FIBRILLATION 07/26/2016 SERGEI ROMAN MD Ot 738.5 OTHER ACQ BACK DEFORMITY 07/26/2016 SERGEI ROMAN MD Ot V72.63 PRE-PROCEDURAL LABORATORY EXAMINATION 07/26/2016 SERGEI ROMAN MD, Ot V72.81 [id number] CARDIOVASCULAR 07/26/2016 CK SANDOVAL Ot E78.2 MIXED HYPERLIPIDEMIA 07/26/2016 CK SANDOVAL Ot I10 ESSENTIAL (PRIMARY) HYPERTENSION 07/26/2016 CK SANDOVAL Ot I25.[address]ART DISEASE OF 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 07/27/2016 VIJAY SIDDIQUI MD Ot 397.0 TRICUSPID VALVE DISEASE 07/27/2016 VIJAY SIDDIQUI MD Ot 401.9 HYPERTENSION NOS 07/27/2016 VIJAY SIDDIQUI MD Ot 414.00 CORON ATHEROSCLER NOS TYPE VESSEL, NATIV 07/27/2016 VIJAY SIDDIQUI MD Ot 427.31 ATRIAL FIBRILLATION 07/27/2016 SERGEI ROMAN MD Ot 722.52 LUMB/LUMBOSAC DISC DEGEN 07/27/2016 VIJAY SIDDIQUI MD Ot 272.4 HYPERLIPIDEMIA NEC/NOS 07/27/2016 VIJAY SIDDIQUI MD Ot 401.9 HYPERTENSION NOS 07/27/2016 VIJAY SIDDIQUI MD Ot 414.9 CHR ISCHEMIC HRT DIS NOS 07/27/2016 VIJAY SIDDIQUI MD Ot 427.31 ATRIAL FIBRILLATION 07/27/2016 VIJAY SIDDIQUI MD Ot E78.5 HYPERLIPIDEMIA, UNSPECIFIED 07/27/2016 VIJAY SIDDIQUI MD Ot I10 ESSENTIAL (PRIMARY) HYPERTENSION 07/27/2016 VIJAY SIDDIQUI MD Ot I25.9 CHRONIC ISCHEMIC HEART DISEASE, UNSPECIF 07/27/2016 VIJAY SIDDIQUI MD Ot I48.91 UNSPECIFIED ATRIAL FIBRILLATION 07/27/2016 SERGEI ROMAN MD Ot 738.5 OTHER ACQ BACK DEFORMITY 07/27/2016 SERGEI ROMAN MD Ot V72.63 PRE-PROCEDURAL LABORATORY EXAMINATION 07/27/2016 SERGEI ROMAN MD Ot V72.81 [id number] CARDIOVASCULAR 07/27/2016 CK SANDOVAL Ot E78.2 MIXED HYPERLIPIDEMIA 07/27/2016 CK SANDOVAL Ot I10 ESSENTIAL (PRIMARY) HYPERTENSION 07/27/2016 CK SANDOVAL Ot I25.[address] CORONARY 07/27/2016 CK SANDOVAL Ot I48.0 PAROXYSMAL ATRIAL FIBRILLATION 07/27/2016 SERGEI ROMAN MD Ot R94.5 ABNORMAL RESULTS OF LIVER FUNCTION STUDI 07/27/2016 SERGEI ROMAN MD Ot R74.8 ABNORMAL LEVELS OF OTHER SERUM ENZYMES 07/27/2016 SERGEI ROMAN MD Ot R10.11 RIGHT UPPER QUADRANT PAIN 08/07/2016 SERGEI ROMAN MD Ot R74.8 ABNORMAL LEVELS OF OTHER SERUM ENZYMES 08/17/2016 SEGLIE MD, SERGEI R Ot R10.11 RIGHT UPPER QUADRANT PAIN 08/17/2016 ABEL ESPARZA, SERGEI R Ot R74.8 ABNORMAL LEVELS OF OTHER SERUM ENZYMES 08/27/2016 ABEL ESPARZA, SERGEI R Ot R10.11 RIGHT UPPER QUADRANT PAIN 11/21/2016 MALLORY SOLIS MD, Ot L97.311 NON-PRS CHRONIC ULCER OF RIGHT ANKLE CRUZ 11/21/2016 MALLORY SOLIS MD, Ot M89.061 ALGONEURODYSTROPHY, RIGHT LOWER LEG 12/04/2016 MALLORY SOLIS MD, Ot I89.0 LYMPHEDEMA, NOT ELSEWHERE CLASSIFIED 12/04/2016 MALLORY SOLIS MD, Ot M89.061 ALGONEURODYSTROPHY, RIGHT LOWER LEG 01/29/2017 MALLORY SOLIS MD, Ot G90.523 COMPLEX REGIONAL PAIN SYNDROME I OF [facility] 01/29/2017 MALLORY SOLIS MD, Ot I70.[address] [facility] ARTERIES OF RIGHT LEG W UL 01/29/2017 MALLORY SOLIS MD Ot I87.331 CHRONIC VENOUS HTN W ULCER AND INFLAMMAT 01/29/2017 MALLORY SOLIS MD, Ot L97.312 NON-PRS CHRONIC ULCER OF RIGHT ANKLE W F 01/30/2017 MALLORY SOLIS MD, Ot G90.523 COMPLEX REGIONAL PAIN SYNDROME I OF [facility] 01/30/2017 MALLORY SOLIS MD, Ot I70.[address] [facility] ARTERIES OF RIGHT LEG W UL 01/30/2017 MALLORY SOLIS MD Ot I87.331 CHRONIC VENOUS HTN W ULCER AND INFLAMMAT 01/30/2017 MALLORY SOLIS MD, Ot L97.312 NON-PRS CHRONIC ULCER OF RIGHT ANKLE W F 01/30/2017 MALLORY SOLIS MD, Ot G90.523 [facility] 01/30/2017 MALLORY SOLIS MD Ot I70.[address] 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 04/24/2017 VIJAY SIDDIQUI MD Ot 397.0 TRICUSPID VALVE DISEASE 04/24/2017 VIJAY SIDDIQUI MD Ot 401.9 HYPERTENSION NOS 04/24/2017 VIJAY SIDDIQUI MD Ot 414.00 CORON ATHEROSCLER NOS TYPE VESSEL, NATIV 04/24/2017 VIJAY SIDDIQUI MD Ot 427.31 ATRIAL FIBRILLATION 04/24/2017 SERGEI ROMAN MD Ot 722.52 LUMB/LUMBOSAC DISC DEGEN 04/24/2017 VIJAY SIDDIQUI MD Ot 272.4 HYPERLIPIDEMIA NEC/NOS 04/24/2017 VIJAY SIDDIQUI MD Ot 401.9 HYPERTENSION NOS 04/24/2017 VIJAY SIDDIQUI MD Ot 414.9 CHR ISCHEMIC HRT DIS NOS 04/24/2017 VIJAY SIDDIQUI MD Ot 427.31 ATRIAL FIBRILLATION 04/24/2017 VIJAY SIDDIQUI MD Ot E78.5 HYPERLIPIDEMIA, UNSPECIFIED 04/24/2017 VIJAY SIDDIQUI MD Ot I10 ESSENTIAL (PRIMARY) HYPERTENSION 04/24/2017 VIJAY SIDDIQUI MD Ot I25.9 CHRONIC ISCHEMIC HEART DISEASE, UNSPECIF 04/24/2017 VIJAY SIDDIQUI MD Ot I48.91 UNSPECIFIED ATRIAL FIBRILLATION 04/24/2017 SERGEI ROMAN MD Ot 738.5 OTHER ACQ BACK DEFORMITY 04/24/2017 SERGEI ROMAN MD Ot V72.63 PRE-PROCEDURAL LABORATORY EXAMINATION 04/24/2017 SERGEI ROMAN MD Ot V72.81 [id number] CARDIOVASCULAR 04/24/2017 CK SANDOVAL Ot E78.2 MIXED HYPERLIPIDEMIA 04/24/2017 CK SANDOVAL Ot I10 ESSENTIAL (PRIMARY) HYPERTENSION 04/24/2017 CK SANDOVAL Ot I25.[address] DISEASE OF [place] CORONARY 04/24/2017 CK SANDOVAL Ot I48.0 PAROXYSMAL ATRIAL FIBRILLATION 04/24/2017 SERGEI ROMAN MD Ot R94.5 ABNORMAL RESULTS OF LIVER FUNCTION STUDI 04/24/2017 SERGEI ROMAN MD Ot R74.8 ABNORMAL LEVELS OF OTHER SERUM ENZYMES 04/24/2017 ABEL ESPARZA, SERGEI Moreno Ot R10.11 RIGHT UPPER QUADRANT PAIN 05/08/2017 CK SANDOVAL Ot E78.2 MIXED HYPERLIPIDEMIA 05/08/2017 BHAVANA GUPTA, CK K Ot I10 ESSENTIAL (PRIMARY) HYPERTENSION 05/08/2017 CK SANDOVAL K Ot I25.10 ATHS[address] HEART DISEASE OF [facility] CORONARY 05/08/2017 CK SANDOVAL Ot I48.2 CHRONIC ATRIAL FIBRILLATION 05/29/2017 CK SANDOVAL Ot E78.2 MIXED HYPERLIPIDEMIA 05/29/2017 CK SANDOVAL K Ot I10 ESSENTIAL (PRIMARY) HYPERTENSION 05/29/2017 CK SANDOVAL Ot I25.[address] [place] CORONARY 05/29/2017 CK SANDOVAL Ot I48.2 CHRONIC ATRIAL FIBRILLATION 05/29/2017 SERGEI ROMAN MD Ot 722.52 LUMB/LUMBOSAC DISC DEGEN 05/29/2017 VIJAY SIDDIQUI MD Ot 272.4 HYPERLIPIDEMIA NEC/NOS 05/29/2017 VIJAY SIDDIQUI MD Ot 401.9 HYPERTENSION NOS 05/29/2017 VIJAY SIDDIQUI MD Ot 414.9 CHR ISCHEMIC HRT DIS NOS 05/29/2017 VIJAY SIDDIQUI MD Ot 427.31 ATRIAL FIBRILLATION 05/29/2017 VIJAY SIDDIQUI MD Ot E78.5 HYPERLIPIDEMIA, UNSPECIFIED 05/29/2017 VIJAY SIDDIQUI MD Ot I10 ESSENTIAL (PRIMARY) HYPERTENSION 05/29/2017 VIJAY SIDDIQUI MD Ot I25.9 CHRONIC ISCHEMIC HEART DISEASE, UNSPECIF 05/29/2017 VIJAY SIDDIQUI MD Ot I48.91 UNSPECIFIED ATRIAL FIBRILLATION 05/29/2017 SERGEI ROMAN MD Ot 738.5 OTHER ACQ BACK DEFORMITY 05/29/2017 SERGEI ROMAN MD Ot V72.63 PRE-PROCEDURAL LABORATORY EXAMINATION 05/29/2017 SERGEI ROMAN MD Ot V72.81 TANH-UUW-OCPWILUJA CARDIOVASCULAR 05/29/2017 SERGEI ROMAN MD Ot R94.5 ABNORMAL RESULTS OF LIVER FUNCTION STUDI 05/29/2017 ABEL ESPARZA, SERGEI R Ot R74.8 ABNORMAL LEVELS OF OTHER SERUM ENZYMES 05/29/2017 ABEL ESPARZA, SERGEI R Ot R10.11 RIGHT UPPER QUADRANT PAIN 05/29/2017 CK SANDOVAL Ot E78.2 MIXED HYPERLIPIDEMIA 05/29/2017 CK SANDOVAL K Ot I10 ESSENTIAL (PRIMARY) HYPERTENSION 05/29/2017 CK SANDOVAL K Ot I25.10 A[address] DISEASE OF 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 06/05/2017 CK SANDOVAL K Ot I48.2 CHRONIC ATRIAL FIBRILLATION Procedures Code Description Performed By Performed On 99.61 ATRIAL CARDIOVERSION 12/07/2009 Results Test Result Range Complete blood count (CBC) with automated white blood cell (WBC) differential - 05/27/16 20:29 Blood leukocytes automated count (number/volume) 8.5 10*3/uL 4.3-11.0 Blood erythrocytes automated count (number/volume) 4.38 10*6/uL 4.35-5.85 Venous blood hemoglobin measurement (mass/volume) 14.1 g/dL 11.5-16.0 Blood hematocrit (volume fraction) 42 % 35-52 Automated erythrocyte mean corpuscular volume 97 [foz_us] 80-99 Automated erythrocyte mean corpuscular hemoglobin (mass per erythrocyte) 32 pg 25-34 Automated erythrocyte mean corpuscular hemoglobin concentration measurement ( mass/volume) 33 g/dL 32-36 Automated erythrocyte distribution width ratio 13.7 % 10.0-14.5 Automated blood platelet count (count/volume) 229 10*3/uL 130-400 Automated blood platelet mean volume measurement 9.4 [foz_us] 7.4-10.4 Automated blood neutrophils/100 leukocytes 67 % 42-75 Automated blood lymphocytes/100 leukocytes 19 % 12-44 Blood monocytes/100 leukocytes 11 % 0-12 Automated blood eosinophils/100 leukocytes 2 % 0-10 Automated blood basophils/100 leukocytes 0 % 0-10 Blood neutrophils automated count (number/volume) 5.7 10*3 1.8-7.8 Blood lymphocytes automated count (number/volume) 1.6 10*3 1.0-4.0 Blood monocytes automated count (number/volume) 1.0 10*3 0.0-1.0 Automated eosinophil count 0.2 10*3/uL 0.0-0.3 Automated blood basophil count (count/volume) 0.0 10*3/uL 0.0-0.1 Serum or plasma C reactive protein measurement (mass/volume) - 05/27/16 20:29 Serum or plasma C reactive protein measurement (mass/volume) 0.41 mg /dL 0.00-0.50 Encounters ACCT No. Visit Date/Time Discharge Status Pt. Type Provider Facility Loc./Unit Complaint [id number] 05/07/2017 13:24:00 05/07/2017 23:59:59 CLS Outpatient CK SANDOVAL [facility] CARD AFIB I48.2, CAD I25.10 [id number] 01/30/2017 13:56:00 01/30/2017 16:00:00 DIS Outpatient MALLORY SOLIS MD [facility] WOUNDCARE [id number] 12/04/2016 11:31:00 12/04/2016 16:00:00 DIS Outpatient MALLORY SOLIS MD [facility] W[facility] [id number] 11/21/2016 13:22:00 11/21/2016 16:00:00 DIS Outpatient MALLORY SOLIS MD [facility] W[facility] [id number] 07/26/2016 11:57:00 07/26/2016 23:59:59 CLS Outpatient SERGEI ROMAN MD [facility] CARD ELEVATED LIVER ENZYMES [id number] 07/17/2016 09:47:00 07/17/2016 23:59:59 CLS Outpatient SERGEI ROMAN MD [facility] RAD ELEVATED LIVER ENZYME [id number] 07/03/2016 13:49:00 07/03/2016 23:59:59 CLS Outpatient ABEL ESPARZA, SERGEI Moreno [facility] RAD ELEVATED LIVER ENZYMES [id number] 05/27/2016 18:57:00 05/27/2016 21:35:00 DIS Emergency HAYDER VERGARA [facility] ER R CALF REDNESS/PAIN [id number] 04/18/2016 09:30:00 04/18/2016 15:30:00 DIS Outpatient MALLORY BLAS MD [facility] SDC SYMPTOMATIC HARDWARE RIGHT ANKLE [id number] 04/17/2016 14:32:00 04/17/2016 23:59:59 CLS Outpatient CK SANDOVAL [facility] CARD CAD, HTN, HYPERLIPIDEMIA, PAF [id number] 04/12/2016 10:30:00 04/12/2016 11:52:00 DIS Outpatient MALLORY BLAS MD [facility] PREOP SYMPTOMATIC HARDWARE RIGHT ANKLE [id number] 01/28/2016 15:38:00 01/28/2016 17:09:00 DIS Emergency HAYDER VERGARA [facility] ER VAG DISCHARGE [id number] 09/02/2015 09:36:00 09/02/2015 23:59:59 CLS Outpatient VIJAY SIDDIQUI MD [facility] CARD CAD,HTN,HLP [id number] 07/12/2015 23:33:00 07/12/2015 23:59:59 CLS Emergency ROBERT CHILEL DO [facility] ER BACK PAIN [id number] 06/29/2015 14:12:00 06/29/2015 23:59:59 CLS Outpatient SERGEI ROMAN MD [facility] CARD FAILED BACK [id number] 06/09/2015 09:56:00 06/09/2015 23:59:59 CLS Outpatient VIJAY SIDDIQUI MD [facility] CARD CAD,HTN,HLP,PAF [id number] 02/20/2015 18:38:00 02/20/2015 20:43:00 DIS Emergency HAYDER VERGARA [facility] ER L SIDE ANN MARIE AREA PAIN [id number] 01/24/2015 15:17:00 01/24/2015 23:59:59 CLS Outpatient SERGEI ROMAN MD [facility] RAD RADICULOPLATHY [id number] 05/06/2014 13:34:00 05/06/2014 23:59:59 CLS Outpatient VIJAY SIDDIQUI MD [facility] CARD HLP,HTN,CAD [id number] 06/17/2013 11:26:00 06/18/2013 12:56:00 DIS Inpatient VIJAY SIDDIQUI MD [facility] CSD CHEST PAIN PALPITATIONS [id number] 07/15/2015 12:43:00 Document Registration [id number] 11/08/2011 12:43:00 Document Registration [id number] 10/09/2011 13:33:00 Document Registration [id number] 03/14/2010 19:06:00 Document Registration
--- NOTE | 2017-10-14 12:14 | ED Back Pain ---
General Chief Complaint: General Problems/Pain Stated Complaint: BODY PAINS,SOA Nursing Triage Note: PATIENT STATES THAT STARTING LAST SATURDAY SHE WOKE UP WITH A "CRICK IN HER NECK" AND THE PAIN HAS SPREAD FROM HER NECK TO HER LEFT SHOULDER, DOWN HER BACK. nO OTHER SYMPTOMS. Nursing Sepsis Screen: No Definite Risk Source of Information: Patient, Other Exam Limitations: No Limitations History of Present Illness Time Seen by Provider: 12:09 Initial Comments Patient resists ER by private conveyance with her sister and a chief complaint that for about for 5 days now she's been experiencing some tenderness in her neck and upper respiration symptoms such as nasal congestion, runny nose. She got she had a cold but then this morning her neck was so stiff she was barely able to turn it and she feels like she is hunched over like an old lady. She has reflex some dystrophy and this is different from those pains she also has a history of low back pain with a nerve stimulator this pain is all up in her neck at the base of her neck. It is worse when she tries to get up and move around, turn her neck. She cannot really describe the pain feels like this is a does radiate sometimes down her right arm to her elbow. She took a 5 mg dose of methadone which did nothing for her pain. She is also take an Aleve. She is on Coumadin for atrial fibrillation. She denies any cough, shortness of breath, chest pain. Sometimes the pain radiates down her upper thoracic spine as well. Patient has not been exposed to influenza but she is afraid that this might be what she has considering her body aches. She also says she does think she might have a urinary tract infection she denies any pain on urination or frequency but says she has a hard time getting a urinary stream to start. This has been the herald of a UTI in the past. This morning she saw a little pink tinged urine. Allergies and Home Medications Allergies Coded Allergies: sulfamethoxazole (Verified Allergy, Severe, CHEST TIGHTNESS, 03/15/10) trimethoprim (Verified Allergy, Severe, CHEST TIGHTNESS, 03/15/10) amiodarone (Verified Allergy, Intermediate, MADE HER COLD, 04/12/16) clindamycin (Verified Allergy, Intermediate, HEARTBURN, 04/12/16) Penicillins (Verified Allergy, Unknown, RASH, HAS RECEIVED ANCEF W/O PROBLEM, 04/18/16) dronedarone (Verified Allergy, Unknown, 04/12/16) hydrochlorothiazide (Verified Allergy, Unknown, 04/12/16) metoprolol (Unverified Allergy, Unknown, 04/18/16) levofloxacin (Unverified Adverse Reaction, Unknown, CHEST TIGHTNESS, ) Uncoded Allergies: TETRACYLCLINE (Adverse Reaction, Unknown, SEVERE HEARTBURN, 04/12/16) Home Medications Calcium Carbonate/Vitamin D3 1 Each Tablet, 1 TAB PO BID, (Reported) Cephalexin 500 Mg Capsule, 500 MG PO TID, #30 Ref 0 Prescribed by: HAYDER REDD on 05/27/162103 Cholecalciferol (Vitamin D3) 2,000 Unit Capsule, 2,000 UNIT PO HS, (Reported) Diltiazem Hcl 120 Mg Cap.sr.24h, 1 EACH PO HS, (Reported) Esomeprazole Mag Trihydrate 40 Mg Capsule.dr, 40 MG PO AFTER DINNER, (Reported) Estradiol 42.5 Gm Cream.appl, 0.1 MG VG DAILY, (Reported) Fish Oil/Dha/Epa 1 Each Capsule, 1,200 MG PO BID, (Reported) Gabapentin 100 Mg Capsule, 100 MG PO TID, (Reported) Hydrocodone/Acetaminophen 1 Each Tablet, 1 EACH PO Q4H, #40 Prescribed by: JOSSELYN RUIZ on 04/18/16 1510 Methadone Hcl 5 Mg Tablet, 5 MG PO UD, (Reported) Multivitamin 1 Each Tablet, 1 TAB PO DAILY, (Reported) Naproxen Sodium 220 Mg Capsule, 220 MG PO PRN, (Reported) Potassium 99 Mg Tablet, 99 MG PO HS, (Reported) Simvastatin 20 Mg Tablet, 20 MG PO HS, (Reported) Triazolam 0.25 Mg Tablet, 0.25 MG PO HS, (Reported) Warfarin Sodium 2 Mg Tablet, 2 MG PO MON, SAT, (Reported) TAKES IN THE EVENING Warfarin Sodium 2 Mg Tablet, 4 MG PO SUN,TUE,YUNIOR,FRI,SAT, (Reported) TAKES 2 (2MG) TABLETS SAT, SAT, FRI TAKES IN THE EVENING Constitutional: No chills, No diaphoresis, No fever, malaise EENTM: nose congestion, No hearing loss, No ear pain, No eye pain, No vision loss, No epistaxis, No nose pain Respiratory: No cough, No phlegm, No short of breath, No wheezing Cardiovascular: No chest pain, No palpitations Gastrointestinal: No abdominal pain, No constipation, No nausea, No vomiting Genitourinary: No discharge, No dysuria Skin: No pruritus, No rash Past Fuceair-Nnkoaq-Wgntno Hx Patient Social History Alcohol Use: Occasionally Uses Alcohol Beverage of Choice: Other Smoking Status: Never a Smoker Recent Foreign Travel: No Contact w/Someone Who Travel: No Recent Infectious Disease Expo: No Immunizations Up To Date Tetanus Booster (TDap): Unknown Date of Pneumonia Vaccine: May 31, 2009 Surgeries Surgeries: Appendectomy, Hysterectomy, Neurological, Orthopedic Cardiovascular Cardiac Disorders: Atrial Fibrillation, Hypertension Neurological Neurological Disorders: Neuropathy Reproductive System Hx Reproductive Disorders: No HIV/AIDS: No 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 Genitourinary Genitourinary Disorders: UTI-Chronic Gastrointestinal Gastrointestinal Disorders: Gastroesophageal Reflux, Chronic Constipation Musculoskeletal Musculoskeletal Disorders: Chronic Back Pain HEENT Loss of Vision: Bilateral Psychosocial Behavioral Health Disorders: Anxiety Blood Transfusions Adverse Reaction to a Blood Tr: No (N/A) Family Medical History Significant Family History: No Pertinent Family Hx Physical Exam Vital Signs Vital Sign - Last 12Hours 10/14/17 11:49 Temp 99.5 Pulse 94 Resp 22 B/P (MAP) 138/92 (107) O2 Delivery Room Air Capillary Refill : Less Than 3 Seconds General Appearance: No Apparent Distress, WD/WN HEENT: PERRL/EOMI, TMs Normal, Pharynx Normal, Other (mild nasal congestion) Neck: Full Range of Motion, Normal Inspection, Non Tender, Supple Cardiovascular: No Edema, No JVD Respiratory: Chest Non Tender, Lungs Clear, Normal Breath Sounds Gastrointestinal: Non Tender, Soft Neurologic/Psychiatric: Alert, Oriented x3 Skin: Normal Color, Warm/Dry Progress/Results/Core Measures Results/Orders Lab Results Laboratory Tests Test 10/14/17 12:10 10/14/17 12:20 Range/Units White Blood Count 11.4 H 4.3-11.0 10^3/uL Red Blood Count 4.20 L 4.35-5.85 10^6/uL Hemoglobin 13.8 11.5-16.0 G/DL Hematocrit 41 35-52 % Mean Corpuscular Volume 96 80-99 FL Mean Corpuscular Hemoglobin 33 25-34 PG Mean Corpuscular Hemoglobin Concent 34 32-36 G/DL Red Cell Distribution Width 13.5 10.0-14.5 % Platelet Count 267 130-400 10^3/uL Mean Platelet Volume 9.5 7.4-10.4 FL Neutrophils (%) (Auto) 75 42-75 % Lymphocytes (%) (Auto) 10 L 12-44 % Monocytes (%) (Auto) 15 H 0-12 % Eosinophils (%) (Auto) 0 0-10 % Basophils (%) (Auto) 0 0-10 % Neutrophils # (Auto) 8.5 H 1.8-7.8 X 10^3 Lymphocytes # (Auto) 1.1 1.0-4.0 X 10^3 Monocytes # (Auto) 1.7 H 0.0-1.0 X 10^3 Eosinophils # (Auto) 0.0 0.0-0.3 10^3/uL Basophils # (Auto) 0.0 0.0-0.1 10^3/uL Sodium Level 138 135-145 MMOL/L Potassium Level 4.4 3.6-5.0 MMOL/L Chloride Level 100 98-107 MMOL/L Carbon Dioxide Level 27 21-32 MMOL/L Anion Gap 11 5-14 MMOL/L Blood Urea Nitrogen 25 H 7-18 MG/DL Creatinine 1.05 0.60-1.30 MG/DL Estimat Glomerular Filtration Rate 50 BUN/Creatinine Ratio 24 Glucose Level 118 H 70-105 MG/DL Calcium Level 9.8 8.5-10.1 MG/DL Total Bilirubin 0.7 0.1-1.0 MG/DL Aspartate Amino Transf (AST/SGOT) 64 H 5-34 U/L Alanine Aminotransferase (ALT/SGPT) 64 H 0-55 U/L Alkaline Phosphatase 131 40-136 U/L C-Reactive Protein High Sensitivity 9.21 H 0.00-0.50 MG/DL Total Protein 7.0 6.4-8.2 GM/DL Albumin 3.7 3.2-4.5 GM/DL Urine Color MONTRELL H Urine Clarity VERY CLOUDY H Urine pH 5 5-9 Urine Specific [place] 1.010 L 1.016-1.022 Urine Protein 3+ H NEGATIVE Urine Glucose (UA) NEGATIVE NEGATIVE Urine Ketones 1+ H NEGATIVE Urine Nitrite POSITIVE H NEGATIVE Urine Bilirubin 1+ H NEGATIVE Urine Urobilinogen 1 NORMAL MG/DL Urine Leukocyte Esterase 3+ H NEGATIVE Urine RBC (Auto) 5+ H NEGATIVE Urine RBC TNTC H /HPF Urine WBC 25-50 H /HPF Urine Squamous Epithelial Cells 10-25 H /HPF Urine Crystals NONE /LPF Urine Bacteria LARGE H /HPF Urine Casts NONE /LPF Urine Mucus NEGATIVE /LPF Urine Culture Indicated YES Micro Results Microbiology 10/14/17 Influenza Types A,B Antigen (JIMBO) - Final, Complete My Orders Orders - STEVIE HWANG Cbc With Automated Diff (10/14/17 12:06) Comprehensive Metabolic Panel (10/14/17 12:06) Hs C Reactive Protein (10/14/17 12:06) Ua Culture If Indicated (10/14/17 12:06) Influenza A And B Antigens (10/14/17 12:06) Chest 1 View, Ap/Pa Only (10/14/17 12:06) Acetaminophen Tablet (Tylenol Tablet) (10/14/17 12:15) Urine Culture (10/14/17 12:20) Medications Given in ED Current Medications Medications Dose Ordered Sig/Belkis Route Start Time Stop Time Status Last Admin Dose Admin Acetaminophen 1,000 mg ONCE ONCE PO 10/14/17 12:15 10/14/17 12:16 DC 10/14/17 12:23 1,000 MG Vital Signs/I&O Vital Sign - Last 12Hours 10/14/17 11:49 Temp 99.5 Pulse 94 Resp 22 B/P (MAP) 138/92 (107) O2 Delivery Room Air Blood Pressure Mean: 107 Progress Note : Time: 12:18 Progress Note Viral torticollis is most likely however we'll check some labs and a chest x- ray which is no evidence of any bacterial infection that would require antibiotics. If not we will treat her with some muscle relaxants and time. 1300: Chest x-ray looks clear. Likely upper respiratory viral syndrome and torticollis as part of that. The elevated CRP is likely due to the urinary tract infection it is nitrite positive. We'll treat her and have her follow-up with her primary care physician. ECG Initial ECG Impression Date: Oct 14, 2017 Initial ECG Impression Time: 12:56 Initial ECG Rate: 65 Initial ECG Rhythm: Normal Sinus Initial ECG Intervals: Normal Initial ECG Impression: Normal Comment No T-wave elevation or depression. Diagnostic Imaging Diagonstic Imaging: Xray Plain Films/CT/US/NM/MRI: chest (1v) Comments No pulmonary congestion or infiltrates. Right bases well seen left base is partially obscured by heart shadow in this one view chest but appears to be clear of any significant pleural fluid effusion. NAME: [facility] REC#: [id number] PT STATUS: REG ER : 1935 PHYSICIAN: STEVIE HWANG MD ADMIT DATE: 10/14/17/ER Draft Date of Exam:10/14/17 CHEST 1 VIEW, AP/PA ONLY INDICATION: Stiffness, pain. 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 Air trapping and COPD chronic. There is mild upper limits heart size, but no oliva vascular congestion. No edema or pneumothorax. There is some hazy opacity at the left base which may reflect a small amount of subpulmonic pleural fluid. IMPRESSION: Upper limits heart size, probable small left effusion, chronic COPD, and biapical pleural-parenchymal scarring. Dictated on workstation # [id number] Dict: 10/14/17 1255 Trans: 10/14/17 1258 [facility] [id number] Interpreted by: MARY KATE NUGENT Electronically signed by: Reviewed: Reviewed by Me Departure Impression Impression: Primary Impression: Viral upper respiratory tract infection Additional Impressions: Acquired torticollis UTI (urinary tract infection) Qualified Codes: N30.01 - Acute cystitis with hematuria Disposition: HOME, SELF-CARE Condition: Stable Departure-Patient Inst. Decision time for Depature: 13:03 Referrals: SERGEI ROMAN MD (PCP/Family) Primary Care Physician Patient Instructions: Torticollis (DC) Add. Discharge Instructions: Heating pads and creams such as icy hot or Biofreeze or useful for your neck. You may use Tylenol 1000 g every 8 hours. He can use your other pain medicines as you have at home as well as once every 8 hours he can take a tablet of cyclobenzaprine. If cyclobenzaprine makes you drowsy may break the tablet in half and try 5 mg at a time. All discharge instructions reviewed with patient and/or family. Voiced understanding. Scripts Cyclobenzaprine HCl (Cyclobenzaprine HCl) 10 Mg Tablet 10 MG PO Q8H Y for SPASMS, #15 TAB 0 Refills Prov: STEVIE HWANG 10/14/17 Nitrofurantoin Monohyd/M-Cryst (Macrobid 100 mg Capsule) 100 Mg Capsule 1 TAB PO BID for 10 Days, #20 CAP 0 Refills Prov: STEVIE HWANG 10/14/17 Copy Copies To 1: SERGEI ROMAN MD, TITUS J Oct 14, 2017 12:14
[2017-10-14] MEDS ORDERED: ACETAMINOPHEN 500 MG TAB (TYLENOL) PO ONE (12:15)
[2017-10-14 12:22] LABS: BASOPHILS % (AUTO) 0 % (0-10); EOSINOPHILS % (AUTO) 0 % (0-10); HEMATOCRIT 41 % (35-52); HEMOGLOBIN 13.8 G/DL (11.5-16.0); LYMPHOCYTES # (AUTO) 1.1 X 10^3 (1.0-4.0); LYMPHOCYTES % (AUTO) 10 % (12-44); MEAN CORPUSCULAR HEMOGLOBIN 33 PG (25-34); MEAN CORPUSCULAR HGB CONC 34 G/DL (32-36); MEAN CORPUSCULAR VOLUME 96 FL (80-99); MEAN PLATELET VOLUME 9.5 FL (7.4-10.4); MONOCYTES # (AUTO) 1.7 X 10^3 (0.0-1.0); MONOCYTES % (AUTO) 15 % (0-12); NEUTROPHILS # (AUTO) 8.5 X 10^3 (1.8-7.8); NEUTROPHILS % (AUTO) 75 % (42-75); PLATELET COUNT 267 10^3/uL (130-400); RED CELL DISTRIBUTION WIDTH 13.5 % (10.0-14.5); WHITE BLOOD COUNT 11.4 10^3/uL (4.3-11.0)
[2017-10-14 12:27] LABS: CLARITY,URINE VERY CLOUDY; COLOR,URINE AMBER; GLUCOSE, URINE (UA) NEGATIVE (NEGATIVE); KETONES,URINE 1+ (NEGATIVE); LEUKOCYTE ESTERASE ,URINE 3+ (NEGATIVE); NITRITE,URINE POSITIVE (NEGATIVE); PH,URINE 5 (5-9); PROTEIN,URINE 3+ (NEGATIVE); UROBILINOGEN,URINE 1 MG/DL (NORMAL)
[2017-10-14 12:37] LABS: ALBUMIN 3.7 GM/DL (3.2-4.5); BILIRUBIN,TOTAL 0.7 MG/DL (0.1-1.0); CALCIUM 9.8 MG/DL (8.5-10.1); CREATININE SERUM 1.05 MG/DL (0.60-1.30); POTASSIUM 4.4 MMOL/L (3.6-5.0)
[2017-10-14 12:46] LABS: BILIRUBIN,URINE 1+ (NEGATIVE)
[2017-10-14 12:52] LABS: BACTERIA,URINE LARGE /HPF; RBC,URINE TNTC /HPF; WBC,URINE 25-50 /HPF
--- NOTE | 2017-10-14 12:58 | Diagnostic Imaging Report ---
INDICATION: Stiffness, pain. 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 Air trapping and COPD chronic. There is mild upper limits heart size, but no oliva vascular congestion. No edema or pneumothorax. There is some hazy opacity at the left base which may reflect a small amount of subpulmonic pleural fluid. IMPRESSION: Upper limits heart size, probable small left effusion, chronic COPD, and biapical pleural-parenchymal scarring. Dictated by: Dictated on workstation # [id number]
[2017-10-14] MEDS ORDERED: NITR-65 PO (13:11)
[2017-10-14] MEDS ORDERED: CYCL10TA9 PO (13:11)
[2017-10-14] MEDS ORDERED: ORPHENADRINE 60 MG/2 ML (NORFLEX) AMP IVP ONE (13:15)
[2017-10-14 13:23] VITALS: BP 138/92
[2017-10-17] MEDS ORDERED: GABA-486 PO (09:55)
[2017-10-17] MEDS ORDERED: DILT120T PO (09:55)
[2017-10-17] MEDS ORDERED: POTA99TA21 PO (09:55)
[2017-10-17] MEDS ORDERED: MULT-35 PO (09:55)
[2017-10-17] MEDS ORDERED: TRIA0.2581 PO (09:55)
[2017-10-17] MEDS ORDERED: CHOL200025 PO (09:55)
[2017-10-17] MEDS ORDERED: FISH1CAP15 PO (09:55)
[2017-10-17] MEDS ORDERED: CALC-6 PO (09:55)
[2017-10-17] MEDS ORDERED: LACT1CAP74 PO (10:11)
[2017-10-17] MEDS ORDERED: METH5TAB2 PO (10:11)
[2017-10-17] MEDS ORDERED: NITR-65 PO (10:11)
[2017-10-17] MEDS ORDERED: RANI-515 PO (10:11)
[2017-10-17] MEDS ORDERED: WARF-47 PO ×2 (10:11)
[2017-10-17] MEDS ORDERED: CALC500T24 PO (10:11)
[2017-10-17] MEDS ORDERED: PITA2TAB2 PO (10:11)
[2017-10-17] MEDS ORDERED: FLUT9.9S NS (10:11)
[2017-10-17] MEDS ORDERED: MAGN250T13 PO (10:11)
[2017-10-17] MEDS ORDERED: KETO5DRO15 OU (10:11)
[2017-10-17] MEDS ORDERED: SODI51CR7 DT (10:11)
[2017-10-17] MEDS ORDERED: METH10TA2 PO (10:18)
== END 2017-10-14 13:31 | disposition home or self-care (01) ==
LOC: EDUNIT# 11:33 → ER 11:35
DX: J06.9 Acute upper respiratory infection, unspecified (principal); M43.6 Torticollis; N39.0 Urinary tract infection, site not specified; I48.91 Unspecified atrial fibrillation; I10 Essential (primary) hypertension; K21.9 Gastro-esophageal reflux disease without esophagitis; F41.9 Anxiety disorder, unspecified; Z87.19 Personal history of other diseases of the digestive system; Z87.440 Personal history of urinary (tract) infections; Z79.01 Long term (current) use of anticoagulants; Z90.710 Acquired absence of both cervix and uterus; Z90.49 Acquired absence of other specified parts of digestive tract
CPT/HCPCS: 36415; 71045; 80053; 81000; 85025; 86141; 87088; 87186; 87804; 96374

== ENCOUNTER 2017-11-02 16:15 | Inpatient (IN) | payer MEDICARE, OTHER ==
[~2017-11-02] VITALS: Ht 160 cm; Wt 66.3 kg
[2017-11-02] VITALS (7 sets, daily range): BP systolic 101–144; BP diastolic 67–102
[~2017-11-02 16:15] MED LIST changes: +APIX2.5T PO; +CALC-6 PO; +CALC500T24 PO; +CHOL200025 PO; +CYCL10TA9 PO; +DILT120T PO; -ESTR42.52 TOP; +ESTR42.52 TP; +FLUT9.9S NSEACH; +HYDR-34 PO; -HYDR-3816 PO; +KETO5DRO15 OU; +LACT1CAP74 PO; +MAGN250T13 PO; +METH10TA2 PO; +MULT-35 PO; +NITR-65 PO; +PITA2TAB2 PO; +POTA99TA21 PO; +RANI-515 PO; +SODI51CR7 DT; +TRIA0.2581 PO; +WARF-47 PO
--- OUTSIDE RECORDS SUMMARY | 2017-11-02 16:21 | XMS REPORT | Clinical Summary ---
Author Author [facility] Organization [facility] Address Unknown Phone Unavailable Care Team Providers Care Pug Machine Operator Name Role Phone ChristineTea harding DO Unavailable Unavailable João Ruiz APRN Unavailable Source Comments Some departments are not documenting in the electronic medical record. If you do not see the information that you expected, contact Release of Information in the Health Information Management department at [phone] for further assistance in locating additional records.[facility] Allergies Active Allergy Reactions Severity Noted Date [...]
--- OUTSIDE RECORDS SUMMARY | 2017-11-02 16:26 | XMS REPORT | Continuity of Care Document ---
Author Author Via [facility] Organization [facility] Address Unknown Phone Unavailable Allergies Active Description Code Type Severity Reaction Onset Reported/Identified Relationship to Patient Clinical Status Yes Penicillins [id number] Drug Allergy Unknown N/A 10/31/2006 Yes sulfamethoxazole [id number] Drug Allergy Severe CHEST TIGHTNESS 03/15/2010 Yes trimethoprim [id number] Drug Allergy Severe CHEST TIGHTNESS 03/15/2010 Yes amiodarone [id number] Drug Allergy Moderate MADE HER COLD 04/12/2016 Yes clindamycin [id number] Drug Allergy Moderate HEARTBURN 04/12/2016 Yes dronedarone [id number] Drug Allergy Unknown N/A 04/12/2016 Yes hydrochlorothiazide [id number] Drug Allergy Unknown N/A 04/12/2016 Yes levofloxacin [id number] Drug Allergy Unknown CHEST TIGHTNESS 04/12/2016 Yes TETRACYLCLINE TETRACYLCLINE Unknown SEVERE HEARTBUR 04/12/2016 Yes metoprolol [id number] Drug Allergy Unknown N/A 04/18/2016 Yes Penicillins [id number] Drug Allergy Unknown RASH, HAS RECEI 04/18/2016 [...] SIDDIQUI MD Ot 414.01 CORONARY ATHEROSCLEROSIS OF [place] CORON 06/18/2013 VIJAY SIDDIQUI MD Ot 427.31 [...] SERGEI ROMAN MD R Ot 722.52 03/18/2015 ESRGEI ROMAN MD R Ot 722.52 06/09/2015 SERGEI [...] ABEL ESPARZA, SERGEI R Ot V72.81 07/15/2015 ABEL [...] 272.4 09/02/2015 ARTUR ESPARZA, VIJAY Covarrubias Ot 396.3 09/02/2015 ARTUR ESPARZA, VIJAY Covarrubias [...] EXAMINATION 04/12/2016 SERGEI ROMAN MD, Ot V72.81 [id number] CARDIOVASCULAR 04/12/2016 MALLORY BLAS MD, Ot T84.9XXA [facility] COMP OF INTERNAL ORTHOPEDIC PROSTH 04/12/2016 MALLORY [...] EXAMINATION 04/18/2016 SERGEI ROMAN MD Ot V72.81 [id number] CARDIOVASCULAR 04/18/2016 CK SANDOVAL Ot I25.10 ATHSCL HEART DISEASE OF [place] CORONARY 04/18/2016 CK SANDOVAL Ot I25.10 ATHSCL HEART DISEASE OF [place] CORONARY 04/18/2016 CK SANDOVAL Ot I25.10 ATHSCL HEART DISEASE OF [place] CORONARY 04/18/2016 CK SANDOVAL Ot I25.10 ATHSCL HEART DISEASE OF [place] CORONARY 04/18/2016 MALLORY BLAS MD Ot E78.0 PURE HYPERCHOLESTEROLEMIA 04/18/2016 MALLORY BLAS MD Ot F41.9 ANXIETY DISORDER, UNSPECIFIED 04/18/2016 MALLORY BLAS MD Ot I10 ESSENTIAL (PRIMARY) HYPERTENSION 04/18/2016 MALLORY BLAS MD Ot M81.0 AGE-RELATED OSTEOPOROSIS W/O CURRENT PAT 04/18/2016 MALLORY BLAS MD Ot T84.84XA PAIN DUE TO INTERNAL ORTHOPEDIC PROSTH D 04/18/2016 MALLORY BLAS MD Ot Z79.01 LONGTERM (CURRENT) USE OF ANTICOAGULANT 04/18/2016 CK SANDOVAL Ot E78.2 MIXED HYPERLIPIDEMIA 04/18/2016 CK SANDOVAL K Ot I10 ESSENTIAL (PRIMARY) HYPERTENSION 04/18/2016 CK SANDOVAL Ot I25.10 ATHSCL HEART DISEASE OF [place] CORONARY 04/18/2016 CK SANDOVAL Ot I48.0 PAROXYSMAL ATRIAL FIBRILLATION 04/19/2016 CK SANDOVAL Ot E78.2 MIXED HYPERLIPIDEMIA 04/19/2016 CK SANDOVAL K Ot I10 ESSENTIAL (PRIMARY) HYPERTENSION 04/19/2016 CK SANDOVAL Ot I25.10 ATHSCL HEART DISEASE OF [place] CORONARY 04/19/2016 CK SANDOVAL K Ot I48.0 PAROXYSMAL ATRIAL FIBRILLATION 04/19/2016 CK SANDOVAL Ot E78.2 MIXED HYPERLIPIDEMIA 04/19/2016 CK SANDOVAL K Ot I10 ESSENTIAL (PRIMARY) HYPERTENSION 04/19/2016 CK SANDOVAL Ot I25.10 ATHSCL HEART DISEASE OF [place] CORONARY 04/19/2016 CK SANDOVAL Ot I48.0 PAROXYSMAL ATRIAL FIBRILLATION 04/19/2016 MALLORY BLAS MD Ot E78.0 PURE HYPERCHOLESTEROLEMIA 04/19/2016 MALLORY BLAS MD Ot F41.9 ANXIETY DISORDER, UNSPECIFIED 04/19/2016 MALLORY BLAS MD Ot I10 ESSENTIAL (PRIMARY) HYPERTENSION 04/19/2016 MALLORY BLAS MD, Ot M81.0 AGE-RELATED OSTEOPOROSIS W/O CURRENT PAT 04/19/2016 MALOLRY BLAS MD, Ot T84.84XA PAIN DUE TO INTERNAL ORTHOPEDIC PROSTH D 04/19/2016 MALLORY BLAS MD, Ot Z79.01 LONGTERM (CURRENT) USE OF ANTICOAGULANT 04/24/2016 MALLORY BLAS MD Ot E78.0 PURE HYPERCHOLESTEROLEMIA 04/24/2016 MALLORY BLAS MD Ot F41.9 ANXIETY DISORDER, UNSPECIFIED 04/24/2016 MALLORY BLAS MD, Ot I10 ESSENTIAL (PRIMARY) HYPERTENSION 04/24/2016 MALLORY BLAS MD, Ot M81.0 AGE-RELATED OSTEOPOROSIS W/O CURRENT PAT 04/24/2016 MALLORY BLAS MD, Ot T84.84XA PAIN DUE TO INTERNAL ORTHOPEDIC PROSTH D 04/24/2016 MALLORY BLAS MD, Ot Z79.01 LONGTERM (CURRENT) USE OF ANTICOAGULANT 05/11/2016 CK SANDOVAL Ot E78.2 MIXED HYPERLIPIDEMIA 05/11/2016 CK SANDOVAL Ot I10 ESSENTIAL (PRIMARY) HYPERTENSION 05/11/2016 CK SANDOVAL Ot I25.10 ATHSCL HEART DISEASE OF [place] CORONARY 05/11/2016 CK SANDOVAL Ot I48.0 PAROXYSMAL ATRIAL FIBRILLATION 05/27/2016 HAYDER VERGARA Ot L03.115 CELLULITIS OF RIGHT LOWER LIMB 05/27/2016 HAYDER VERGARA Ot 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] 05/27/2016 HAYDER VERGARA Ot M79.9 SOFT TISSUE DISORDER, UNSPECIFIED 05/28/2016 CK SANDOVAL Ot E78.2 MIXED HYPERLIPIDEMIA 05/28/2016 CK SANDOVAL Ot I10 ESSENTIAL (PRIMARY) HYPERTENSION 05/28/2016 CK SANDOVAL Ot I25.10 ATHSCL HEART DISEASE OF [place] CORONARY 05/28/2016 CK SANDOVAL Ot I48.0 PAROXYSMAL [...] EXAMINATION 05/28/2016 SERGEI ROMAN MD Ot V72.81 [id number] CARDIOVASCULAR 05/28/2016 CK SANDOVAL Ot E78.2 MIXED HYPERLIPIDEMIA 05/28/2016 CK SANDOVAL Ot I10 ESSENTIAL (PRIMARY) HYPERTENSION 05/28/2016 CK SANDOVAL Ot I25.10 ATHSCL HEART DISEASE OF [place] CORONARY 05/28/2016 CK SANDOVAL Ot I48.0 PAROXYSMAL [...] EXAMINATION 07/03/2016 SERGEI ROMAN MD, Ot V72.81 [id number] CARDIOVASCULAR 07/03/2016 CK SANDOVAL Ot E78.2 MIXED HYPERLIPIDEMIA 07/03/2016 CK SANDOVAL Ot I10 ESSENTIAL (PRIMARY) HYPERTENSION 07/03/2016 CK SANDOVAL Ot I25.10 ATHSCL HEART DISEASE OF [place] CORONARY 07/03/2016 CK SANDOVAL Ot I48.0 PAROXYSMAL [...] EXAMINATION 07/26/2016 SERGEI ROMAN MD, Ot V72.81 [id number] CARDIOVASCULAR 07/26/2016 CK SANDOVAL Ot E78.2 MIXED HYPERLIPIDEMIA 07/26/2016 CK SANDOVAL Ot I10 ESSENTIAL (PRIMARY) HYPERTENSION 07/26/2016 CK SANDOVAL Ot I25.10 ATHSCL HEART DISEASE OF [place] CORONARY 07/26/2016 CK SANDOVAL Ot I48.0 PAROXYSMAL [...] EXAMINATION 07/27/2016 SERGEI ROMAN MD Ot V72.81 [id number] CARDIOVASCULAR 07/27/2016 CK SANDOVAL Ot E78.2 MIXED HYPERLIPIDEMIA 07/27/2016 CK SANDOVAL Ot I10 ESSENTIAL (PRIMARY) HYPERTENSION 07/27/2016 CK SANDOVAL Ot I25.10 ATHSCL HEART DISEASE OF [place] CORONARY 07/27/2016 CK SANDOVAL Ot I48.0 PAROXYSMAL [...] G90.523 COMPLEX REGIONAL PAIN SYNDROME I OF [facility] 01/29/2017 MALLORY SOLIS MD, Ot 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 01/29/2017 MALLORY SOLIS MD Ot I87.331 CHRONIC VENOUS HTN W ULCER AND INFLAMMAT 01/29/2017 MALLORY SOLIS MD, Ot L97.312 NON-PRS CHRONIC ULCER OF RIGHT ANKLE W F 01/30/2017 MALLORY SOLIS MD, Ot G90.523 COMPLEX REGIONAL PAIN SYNDROME I OF [facility] 01/30/2017 MALLORY SOLIS MD, Ot 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 01/30/2017 MALLORY SOLIS MD Ot I87.331 CHRONIC VENOUS HTN W ULCER AND INFLAMMAT 01/30/2017 MALLORY SOLIS MD, Ot L97.312 NON-PRS CHRONIC ULCER OF RIGHT ANKLE W F 01/30/2017 MALLORY SOLIS MD, Ot G90.523 COMPLEX REGIONAL [facility]DROME [facility] 01/30/2017 MALLORY SOLIS MD Ot 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 01/30/2017 [...] EXAMINATION 04/24/2017 SERGEI ROMAN MD Ot V72.81 [id number] CARDIOVASCULAR 04/24/2017 CK SANDOVAL Ot E78.2 MIXED HYPERLIPIDEMIA 04/24/2017 CK SANDOVAL Ot I10 ESSENTIAL (PRIMARY) HYPERTENSION 04/24/2017 CK SANDOVAL Ot I25.10 ATHSCL HEART DISEASE OF [place] CORONARY 04/24/2017 CK SANDOVAL Ot I48.0 PAROXYSMAL [...] K Ot I25.10 ATHSCL HEART DISEASE OF [place] CORONARY 05/08/2017 CK SANDOVAL Ot I48.2 CHRONIC ATRIAL FIBRILLATION 05/29/2017 CK SANDOVAL Ot E78.2 MIXED HYPERLIPIDEMIA 05/29/2017 CK SANDOVAL K Ot I10 ESSENTIAL (PRIMARY) HYPERTENSION 05/29/2017 CK SANDOVAL Ot I25.10 ATHSCL HEART DISEASE OF [place] CORONARY 05/29/2017 CK SANDOVAL Ot I48.2 CHRONIC [...] EXAMINATION 05/29/2017 SERGEI ROMAN MD Ot V72.81 [id number] CARDIOVASCULAR 05/29/2017 SERGEI ROMAN MD Ot R94.5 ABNORMAL RESULTS OF LIVER FUNCTION STUDI 05/29/2017 ABEL ESPARZA, SERGEI R Ot R74.8 ABNORMAL LEVELS OF OTHER SERUM ENZYMES 05/29/2017 ABEL ESPARZA, SERGEI R Ot R10.11 RIGHT UPPER QUADRANT PAIN 05/29/2017 BHAVANA GUPTA, CK K Ot E78.2 MIXED HYPERLIPIDEMIA 05/29/2017 BHAVANA GUPTA, CK K Ot I10 ESSENTIAL (PRIMARY) HYPERTENSION 05/29/2017 BHAVANA GUPTA, CK K Ot I25.10 ATHSCL HEART DISEASE OF [place] CORONARY 05/29/2017 BHAVANA GUPTA, CK K Ot I48.2 CHRONIC ATRIAL FIBRILLATION 06/05/2017 CK SANDOVAL Ot E78.2 MIXED HYPERLIPIDEMIA 06/05/2017 BHAVANA GUPTA CK K Ot I10 ESSENTIAL (PRIMARY) HYPERTENSION 06/05/2017 BHAVANA GUPTA, CK K Ot I25.10 ATHSCL HEART DISEASE OF [place] CORONARY 06/05/2017 JOSIE SANDOVALTH K Ot I48.2 CHRONIC ATRIAL FIBRILLATION 10/17/2017 MICKY DO DOLORES Ot F41.9 ANXIETY DISORDER, UNSPECIFIED 10/17/2017 MICKY DO DOLORES Ot G62.9 POLYNEUROPATHY, UNSPECIFIED 10/17/2017 MICKY DO DOLORES Ot I10 ESSENTIAL (PRIMARY) HYPERTENSION 10/17/2017 MICKY DO DOLORES Ot I48.91 UNSPECIFIED ATRIAL FIBRILLATION 10/17/2017 MICKY DO DOLORES Ot K21.9 GASTRO-ESOPHAGEAL REFLUX DISEASE WITHOUT 10/17/2017 MICKY THOMASON DOLORES Ot K59.09 OTHER CONSTIPATION 10/17/2017 MICKY DO DOLORES Ot M54.16 RADICULOPATHY, LUMBAR REGION 10/17/2017 MICKY THOMASON DOLORES Ot M54.2 CERVICALGIA 10/17/2017 MICKY THOMASON DOLORES Ot M54.6 PAIN IN THORACIC SPINE 10/17/2017 MICKY THOMASON DOLORES Ot Z87.440 PERSONAL HISTORY OF URINARY (TRACT) INFE 10/18/2017 MICKY DO DOLORES Ot F41.9 ANXIETY DISORDER, UNSPECIFIED 10/18/2017 MICKY THOMASON DOLORES Ot G62.9 POLYNEUROPATHY, UNSPECIFIED 10/18/2017 WEEKS DO, DOLORES Ot I10 ESSENTIAL (PRIMARY) HYPERTENSION 10/18/2017 WEEKS DO, DOLORES Ot I48.91 UNSPECIFIED ATRIAL FIBRILLATION 10/18/2017 WEEKS DO, DOLORES Ot K21.9 GASTRO-ESOPHAGEAL REFLUX DISEASE WITHOUT 10/18/2017 WEEKS DO, DOLORES Ot K59.09 OTHER CONSTIPATION 10/18/2017 WEEKS DO, DOLORES Ot M54.16 RADICULOPATHY, LUMBAR REGION 10/18/2017 WEEKS DO, DOLORES Ot M54.2 CERVICALGIA 10/18/2017 WEEKS DO, DOLORES Ot M54.6 PAIN IN THORACIC SPINE 10/18/2017 WEEKS DO, DOLORES Ot Z87.440 PERSONAL HISTORY OF URINARY (TRACT) INFE 10/19/2017 MICKY DO, DOLORES Ot E78.5 HYPERLIPIDEMIA, UNSPECIFIED 10/19/2017 WEEKS DO, DOLORES Ot F41.9 ANXIETY DISORDER, UNSPECIFIED 10/19/2017 WEEKS DO, DOLORES Ot G62.9 POLYNEUROPATHY, UNSPECIFIED 10/19/2017 WEEKS DO DOLORES Ot G90.50 COMPLEX REGIONAL PAIN SYNDROME I, UNSPEC 10/19/2017 WEEKS DO, DOLORES Ot I08.0 RHEUMATIC DISORDERS OF BOTH MITRAL AND A 10/19/2017 WEEKS DO, DOLORES Ot I10 ESSENTIAL (PRIMARY) HYPERTENSION 10/19/2017 MICKY THOMASON DOLORES Ot I25.10 ATHSCL HEART DISEASE OF [place] CORONARY 10/19/2017 MICKY DO, DOLORES Ot I27.20 PULMONARY HYPERTENSION, UNSPECIFIED 10/19/2017 MICKY DO DOLORES Ot I48.2 CHRONIC ATRIAL FIBRILLATION 10/19/2017 MICKY THOMASON DOLORES Ot I65.23 OCCLUSION AND STENOSIS OF BILATERAL [place] 10/19/2017 WEEKS DO, DOLORES Ot 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 10/19/2017 MICKY DO, DOLORES Ot K21.9 GASTRO-ESOPHAGEAL REFLUX DISEASE WITHOUT 10/19/2017 WEEKS DO, DOLORES Ot K59.09 OTHER CONSTIPATION 10/19/2017 WEEKS DO, DOLORES Ot M25.519 PAIN IN UNSPECIFIED SHOULDER 10/19/2017 WEEKS DO, DOLORES Ot M40.203 UNSPECIFIED KYPHOSIS, CERVICOTHORACIC RE 10/19/2017 MICKY DO DOLORES Ot M54.16 RADICULOPATHY, LUMBAR REGION 10/19/2017 DOLORES WEEKS DO Ot M81.0 AGE-RELATED OSTEOPOROSIS W/O CURRENT PAT 10/19/2017 DOLORES WEEKS DO Ot N17.9 ACUTE KIDNEY FAILURE, UNSPECIFIED 10/19/2017 DOLORES WEEKS DO Ot N39.0 URINARY TRACT INFECTION, SITE NOT SPECIF 10/19/2017 DOLORES WEEKS DO Ot R64 CACHEXIA 10/19/2017 DOLORES WEEKS DO Ot R79.1 ABNORMAL COAGULATION PROFILE 10/19/2017 DOLORES WEEKS DO Ot T45.515A ADVERSE EFFECT OF ANTICOAGULANTS, INITIA 10/19/2017 DOLORES WEEKS DO Ot Z88.0 ALLERGY STATUS TO PENICILLIN 10/19/2017 DOLORES WEEKS DO Ot Z88.1 ALLERGY STATUS TO OTHER ANTIBIOTIC AGENT 10/19/2017 DOLORES WEEKS DO Ot Z88.2 ALLERGY STATUS TO SULFONAMIDES STATUS 10/20/2017 STEVIE HWANG MD Ot F41.9 ANXIETY DISORDER, UNSPECIFIED 10/20/2017 STEVIE HWANG MD Ot I10 ESSENTIAL (PRIMARY) HYPERTENSION 10/20/2017 STEVIE HWANG MD Ot I48.91 UNSPECIFIED ATRIAL FIBRILLATION 10/20/2017 STEVIE HWANG MD Ot J06.9 ACUTE UPPER RESPIRATORY INFECTION, UNSPE 10/20/2017 STEVIE HWANG MD Ot K21.9 GASTRO-ESOPHAGEAL REFLUX DISEASE WITHOUT 10/20/2017 STEVIE HWANG MD Ot 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 TORTICOLLIS 10/20/2017 STEVIE HWANG MD Ot M54.2 CERVICALGIA 10/20/2017 STEVIE HWANG MD Ot N39.0 URINARY TRACT INFECTION, SITE NOT SPECIF 10/20/2017 STEVIE HWANG MD Ot Z79.01 LONGTERM (CURRENT) USE OF ANTICOAGULANT 10/20/2017 STEVIE HWANG MD Ot Z87.19 PERSONAL HISTORY OF OTHER DISEASES OF TH 10/20/2017 STEVIE HWANG MD Ot Z87.440 PERSONAL HISTORY OF URINARY (TRACT) INFE 10/20/2017 STEVIE HWANG MD Ot Z90.49 ACQUIRED ABSENCE OF OTHER SPECIFIED PART 10/20/2017 STEVIE HWANG MD Ot Z90.710 ACQUIRED ABSENCE OF BOTH CERVIX AND UTER 10/20/2017 WEEKS DO, DOLORES Ot E78.5 HYPERLIPIDEMIA, UNSPECIFIED 10/20/2017 MICKY THOMASON, DOLORES Ot F41.9 ANXIETY DISORDER, UNSPECIFIED 10/20/2017 MICKY THOMASON DOLORES Ot G62.9 POLYNEUROPATHY, UNSPECIFIED 10/20/2017 MICKY THOMASON, DOLORES Ot G90.50 COMPLEX REGIONAL PAIN SYNDROME I, UNSPEC 10/20/2017 MICKY THOMASON DOLORES Ot I08.0 RHEUMATIC DISORDERS OF BOTH MITRAL AND A 10/20/2017 MICKY THOMASON DOLORES Ot I10 ESSENTIAL (PRIMARY) HYPERTENSION 10/20/2017 MICKY THOMASON DOLORES Ot I25.10 ATHSCL HEART DISEASE OF [place] CORONARY 10/20/2017 MICKY THOMASON DOLORES Ot I27.20 PULMONARY HYPERTENSION, UNSPECIFIED 10/20/2017 MICKY THOMASON DOLORES Ot I48.2 CHRONIC ATRIAL FIBRILLATION 10/20/2017 MICKY THOMASON DOLORES Ot I65.23 OCCLUSION AND STENOSIS OF BILATERAL [place] 10/20/2017 MICKY THOMASON DOLORES Ot 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 10/20/2017 MICKY THOMASON DOLORES Ot K21.9 GASTRO-ESOPHAGEAL REFLUX DISEASE WITHOUT 10/20/2017 MICKY THOMASON DOLORES Ot K59.09 OTHER CONSTIPATION 10/20/2017 MICKY THOMASON DOLORES Ot M25.519 PAIN IN UNSPECIFIED SHOULDER 10/20/2017 MICKY THOMASON DOLORES Ot M40.203 UNSPECIFIED KYPHOSIS, CERVICOTHORACIC RE 10/20/2017 MICKY THOMASON DOLORES Ot M54.16 RADICULOPATHY, LUMBAR REGION 10/20/2017 MICKY THOMASON DOLORES Ot M81.0 AGE-RELATED OSTEOPOROSIS W/O CURRENT PAT 10/20/2017 MICKY THOMASON DOLORES Ot N17.9 ACUTE KIDNEY FAILURE, UNSPECIFIED 10/20/2017 MICKY THOMASON DOLORES Ot N39.0 URINARY TRACT INFECTION, SITE NOT SPECIF 10/20/2017 MICKY THOMASON DOLORES Ot R64 CACHEXIA 10/20/2017 MICKY THOMASON DOLORES Ot R79.1 ABNORMAL COAGULATION PROFILE 10/20/2017 MICKY THOMASON DOLORES Ot T45.515A ADVERSE EFFECT OF ANTICOAGULANTS, INITIA 10/20/2017 MICKY THOMASON DOLORES Ot Z88.0 ALLERGY STATUS TO PENICILLIN 10/20/2017 MICKY THOMASON DOLORES Ot Z88.1 ALLERGY STATUS TO OTHER ANTIBIOTIC AGENT 10/20/2017 MICKY THOMASON DOLORES Ot Z88.2 ALLERGY STATUS TO SULFONAMIDES STATUS 10/21/2017 DOLORES WEEKS DO Ot E78.5 HYPERLIPIDEMIA, UNSPECIFIED 10/21/2017 MICKY THOMASON DOLORES Ot F41.9 ANXIETY DISORDER, UNSPECIFIED 10/21/2017 MICKY THOMASON DOLORES Ot G62.9 POLYNEUROPATHY, UNSPECIFIED 10/21/2017 MICKY THOMASON DOLORES Ot G90.50 COMPLEX REGIONAL PAIN SYNDROME I, UNSPEC 10/21/2017 MICKY THOMASON DOLORES Ot I08.0 RHEUMATIC DISORDERS OF BOTH MITRAL AND A 10/21/2017 MICKY THOMASON DOLORES Ot I10 ESSENTIAL (PRIMARY) HYPERTENSION 10/21/2017 MICKY THOMASON DOLORES Ot I25.10 ATHSCL HEART DISEASE OF [place] CORONARY 10/21/2017 MICKY THOMASON DOLORES Ot I27.20 PULMONARY HYPERTENSION, UNSPECIFIED 10/21/2017 MICKY THOMASON DOLORES Ot I48.2 CHRONIC ATRIAL FIBRILLATION 10/21/2017 MICKY THOMASON DOLORES Ot I65.23 OCCLUSION AND STENOSIS OF BILATERAL [place] 10/21/2017 MICKY THOMASON DOLORES Ot 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 10/21/2017 MICKY THOMASON DOLORES Ot K21.9 GASTRO-ESOPHAGEAL REFLUX DISEASE WITHOUT 10/21/2017 FABIEN WEEKS DOI Ot K59.09 OTHER CONSTIPATION 10/21/2017 MICKY THOMASON DOLORES Ot M25.519 PAIN IN UNSPECIFIED SHOULDER 10/21/2017 MICKY THOMASON DOLORES Ot M40.203 UNSPECIFIED KYPHOSIS, CERVICOTHORACIC RE 10/21/2017 MICKY THOMASON DOLORES Ot M54.16 RADICULOPATHY, LUMBAR REGION 10/21/2017 FABIEN WEEKS DOI Ot M81.0 AGE-RELATED OSTEOPOROSIS W/O CURRENT PAT 10/21/2017 FABIEN WEEKS DOI Ot N17.9 ACUTE KIDNEY FAILURE, UNSPECIFIED 10/21/2017 MICKY THOMASON DOLORES Ot N39.0 URINARY TRACT INFECTION, SITE NOT SPECIF 10/21/2017 FABIEN WEEKS DOI Ot R64 CACHEXIA 10/21/2017 MICKY THOMASON DOLORES Ot R79.1 ABNORMAL COAGULATION PROFILE 10/21/2017 MICKY THOMASON DOLORES Ot T45.515A ADVERSE EFFECT OF ANTICOAGULANTS, INITIA 10/21/2017 DOLORES WEEKS DO Ot Z88.0 ALLERGY STATUS TO PENICILLIN 10/21/2017 DOLORES WEEKS DO Ot Z88.1 ALLERGY STATUS TO OTHER ANTIBIOTIC AGENT 10/21/2017 DOLORES WEEKS DO Ot Z88.2 ALLERGY STATUS TO SULFONAMIDES STATUS 10/21/2017 DOLORES WEEKS DO Ot E78.5 HYPERLIPIDEMIA, UNSPECIFIED 10/21/2017 MICKY THOMASON DOLORES Ot F41.9 ANXIETY DISORDER, UNSPECIFIED 10/21/2017 FABIEN WEEKS DOI Ot G62.9 POLYNEUROPATHY, UNSPECIFIED 10/21/2017 MICKY THOMASON DOLORES Ot G90.50 COMPLEX REGIONAL PAIN SYNDROME I, UNSPEC 10/21/2017 FABIEN WEEKS DOI Ot I08.0 RHEUMATIC DISORDERS OF BOTH MITRAL AND A 10/21/2017 MICKY THOMASON DOLORES Ot I10 ESSENTIAL (PRIMARY) HYPERTENSION 10/21/2017 MICKY THOMASON DOLORES Ot I25.10 ATHSCL HEART DISEASE OF [place] CORONARY 10/21/2017 MICKY THOMASON DOLORES Ot I27.20 PULMONARY HYPERTENSION, UNSPECIFIED 10/21/2017 MICKY THOMASON DOLORES Ot I48.2 CHRONIC ATRIAL FIBRILLATION 10/21/2017 MICKY THOMASON DOLORES Ot I65.23 OCCLUSION AND STENOSIS OF BILATERAL [place] 10/21/2017 MICKY THOMASON DOLORES Ot 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 10/21/2017 MICKY THOMASON DOLORES Ot K21.9 GASTRO-ESOPHAGEAL REFLUX DISEASE WITHOUT 10/21/2017 MICKY THOMASON DOLORES Ot K59.09 OTHER CONSTIPATION 10/21/2017 DOLORES WEEKS DO Ot M25.519 PAIN IN UNSPECIFIED SHOULDER 10/21/2017 MICKY THOMASON DOLORES Ot M40.203 UNSPECIFIED KYPHOSIS, CERVICOTHORACIC RE 10/21/2017 MICKY THOMASON DOLORES Ot M54.16 RADICULOPATHY, LUMBAR REGION 10/21/2017 FABIEN WEEKS DOI Ot M81.0 AGE-RELATED OSTEOPOROSIS W/O CURRENT PAT 10/21/2017 MICKY THOMASON DOLORES Ot N17.9 ACUTE KIDNEY FAILURE, UNSPECIFIED 10/21/2017 MICKY THOMASON DOLORES Ot N39.0 URINARY TRACT INFECTION, SITE NOT SPECIF 10/21/2017 MICKY THOMASON DOLORES Ot R64 CACHEXIA 10/21/2017 DOLORES WEEKS DO Ot R79.1 ABNORMAL COAGULATION PROFILE 10/21/2017 DOLORES WEEKS DO Ot T45.515A ADVERSE EFFECT OF ANTICOAGULANTS, INITIA 10/21/2017 DOLORES WEEKS DO Ot Z88.0 ALLERGY STATUS TO PENICILLIN 10/21/2017 DOLORES WEEKS DO Ot Z88.1 ALLERGY STATUS TO OTHER ANTIBIOTIC AGENT 10/21/2017 DOLORES WEEKS DO Ot Z88.2 ALLERGY STATUS TO SULFONAMIDES STATUS 10/21/2017 DOLORES WEEKS DO Ot E78.5 HYPERLIPIDEMIA, UNSPECIFIED 10/21/2017 DOLORES WEEKS DO Ot F41.9 ANXIETY DISORDER, UNSPECIFIED 10/21/2017 DOLORES WEEKS DO Ot G62.9 POLYNEUROPATHY, UNSPECIFIED 10/21/2017 DOLORES WEEKS DO Ot G90.50 COMPLEX REGIONAL PAIN SYNDROME I, UNSPEC 10/21/2017 DOLORES WEEKS DO Ot I08.0 RHEUMATIC DISORDERS OF BOTH MITRAL AND A 10/21/2017 DOLORES WEEKS DO Ot I10 ESSENTIAL (PRIMARY) HYPERTENSION 10/21/2017 DOLORES WEEKS DO Ot I25.10 ATHSCL HEART DISEASE OF [place] CORONARY 10/21/2017 DOLORES WEEKS DO Ot I27.20 PULMONARY HYPERTENSION, UNSPECIFIED 10/21/2017 DOLORES WEEKS DO Ot I48.2 CHRONIC ATRIAL FIBRILLATION 10/21/2017 DOLORES WEEKS DO Ot I50.31 ACUTE DIASTOLIC (CONGESTIVE) HEART FAILU 10/21/2017 FABIEN WEEKS DOI Ot I65.23 OCCLUSION AND STENOSIS OF BILATERAL [place] 10/21/2017 DOLORES WEEKS DO Ot 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 10/21/2017 DOLORES WEEKS DO Ot K21.9 GASTRO-ESOPHAGEAL REFLUX DISEASE WITHOUT 10/21/2017 DOLORES WEEKS DO Ot K59.09 OTHER CONSTIPATION 10/21/2017 DOLORES WEEKS DO Ot M25.519 PAIN IN UNSPECIFIED SHOULDER 10/21/2017 DOLORES WEEKS DO Ot M40.203 UNSPECIFIED KYPHOSIS, CERVICOTHORACIC RE 10/21/2017 DOLORES WEEKS DO Ot M54.16 RADICULOPATHY, LUMBAR REGION 10/21/2017 DOLORES WEEKS DO Ot M81.0 AGE-RELATED OSTEOPOROSIS W/O CURRENT PAT 10/21/2017 DOLORES WEEKS DO Ot N17.9 ACUTE KIDNEY FAILURE, UNSPECIFIED 10/21/2017 FABIEN WEEKS DOI Ot N30.01 ACUTE CYSTITIS WITH HEMATURIA 10/21/2017 MICKY THOMASON DOLORES Ot N39.0 URINARY TRACT INFECTION, SITE NOT SPECIF 10/21/2017 FABIEN WEEKS DOI Ot R64 CACHEXIA 10/21/2017 MICKY THOMASON DOLORES Ot R79.1 ABNORMAL COAGULATION PROFILE 10/21/2017 DOLORES WEEKS DO Ot T45.515A ADVERSE EFFECT OF ANTICOAGULANTS, INITIA 10/21/2017 FABIEN WEEKS DOI Ot Z88.0 ALLERGY STATUS TO PENICILLIN 10/21/2017 DOLORES WEEKS DO Ot Z88.1 ALLERGY STATUS TO OTHER ANTIBIOTIC AGENT 10/21/2017 DOLORES WEEKS DO Ot Z88.2 ALLERGY STATUS TO SULFONAMIDES STATUS 10/26/2017 STEVIE HWANG MD Ot F41.9 ANXIETY DISORDER, UNSPECIFIED 10/26/2017 STEVIE HWANG MD Ot I10 ESSENTIAL (PRIMARY) HYPERTENSION 10/26/2017 STEVIE HWANG MD Ot I48.91 UNSPECIFIED ATRIAL FIBRILLATION 10/26/2017 STEVIE HWANG MD Ot J06.9 ACUTE UPPER RESPIRATORY INFECTION, UNSPE 10/26/2017 STEVIE HWANG MD Ot K21.9 GASTRO-ESOPHAGEAL REFLUX DISEASE WITHOUT 10/26/2017 STEVIE HWANG MD Ot M43.6 TORTICOLLIS 10/26/2017 STEVIE HWANG MD Ot M54.2 CERVICALGIA 10/26/2017 STEVIE HWANG MD Ot N39.0 URINARY TRACT INFECTION, SITE NOT SPECIF 10/26/2017 STEVIE HWANG MD Ot 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 Complete blood count (CBC) with automated white blood cell (WBC) differential - 10/14/17 12:10 Blood leukocytes automated count (number/volume) 11.4 10*3/uL 4.3-11.0 Blood erythrocytes automated count (number/volume) 4.20 10*6/uL 4.35-5.85 Venous blood hemoglobin measurement (mass/volume) 13.8 g/dL 11.5-16.0 Blood hematocrit (volume fraction) 41 % 35-52 Automated erythrocyte mean corpuscular volume 96 [foz_us] 80-99 Automated erythrocyte mean corpuscular hemoglobin (mass per erythrocyte) 33 pg 25-34 Automated erythrocyte mean corpuscular hemoglobin concentration measurement ( mass/volume) 34 g/dL 32-36 Automated erythrocyte distribution width ratio 13.5 % 10.0-14.5 Automated blood platelet count (count/volume) 267 10*3/uL 130-400 Automated blood platelet mean volume measurement 9.5 [foz_us] 7.4-10.4 Automated blood neutrophils/100 leukocytes 75 % 42-75 Automated blood lymphocytes/100 leukocytes 10 % 12-44 Blood monocytes/100 leukocytes 15 % 0-12 Automated blood eosinophils/100 leukocytes 0 % 0-10 Automated blood basophils/100 leukocytes 0 % 0-10 Blood neutrophils automated count (number/volume) 8.5 10*3 1.8-7.8 Blood lymphocytes automated count (number/volume) 1.1 10*3 1.0-4.0 Blood monocytes automated count (number/volume) 1.7 10*3 0.0-1.0 Automated eosinophil count 0.0 10*3/uL 0.0-0.3 Automated blood basophil count (count/volume) 0.0 10*3/uL 0.0-0.1 Comprehensive metabolic panel - 10/14/17 12:10 Serum or plasma sodium measurement (moles/volume) 138 mmol/L 135-145 Serum or plasma potassium measurement (moles/volume) 4.4 mmol/L 3.6-5.0 Serum or plasma chloride measurement (moles/volume) 100 mmol/L 98-107 Carbon dioxide 27 mmol/L 21-32 Serum or plasma anion gap determination (moles/volume) 11 mmol/L 5-14 Serum or plasma urea nitrogen measurement (mass/volume) 25 mg/dL 7-18 Serum or plasma creatinine measurement (mass/volume) 1.05 mg/dL 0.60-1.30 Serum or plasma urea nitrogen/creatinine mass ratio 24 NRG Serum or plasma creatinine measurement with calculation of estimated glomerular filtration rate 50 NRG Serum or plasma glucose measurement (mass/volume) 118 mg/dL 70-105 Serum or plasma calcium measurement (mass/volume) 9.8 mg/dL 8.5-10.1 Serum or plasma total bilirubin measurement (mass/volume) 0.7 mg/dL 0.1-1.0 Serum or plasma alkaline phosphatase measurement (enzymatic activity/volume) 131 U/L 40-136 Serum or plasma aspartate aminotransferase measurement (enzymatic activity/ volume) 64 U/L 5-34 Serum or plasma alanine aminotransferase measurement (enzymatic activity/volume ) 64 U/L 0-55 Serum or plasma protein measurement (mass/volume) 7.0 g/dL 6.4-8.2 Serum or plasma albumin measurement (mass/volume) 3.7 g/dL 3.2-4.5 Serum or plasma C reactive protein measurement (mass/volume) - 10/14/17 12:10 Serum or plasma C reactive protein measurement (mass/volume) 9.21 mg /dL 0.00-0.50 Complete urinalysis with reflex to culture - 10/14/17 12:20 Urine color determination MONTRELL NRG Urine clarity determination VERY CLOUDY NRG Urine pH measurement by test strip 5 5-9 Specific gravity of urine by test strip 1.010 1.016- 1.022 Urine protein assay by test strip, semi-quantitative 3+ NEGATIVE Urine glucose detection by automated test strip NEGATIVE NEGATIVE Erythrocytes detection in urine sediment by light microscopy 5+ NEGATIVE Urine ketones detection by automated test strip 1+ NEGATIVE Urine nitrite detection by test strip POSITIVE NEGATIVE Urine total bilirubin detection by test strip 1+ NEGATIVE Urine urobilinogen measurement by automated test strip (mass/volume) 1 mg/dL NORMAL Urine leukocyte esterase detection by dipstick 3+ NEGATIVE Automated urine sediment erythrocyte count by microscopy (number/high power field) TNTC NRG Automated urine sediment leukocyte count by microscopy (number/high power field ) [HPF] NRG Bacteria detection in urine sediment by light microscopy LARGE NRG Squamous epithelial cells detection in urine sediment by light microscopy 10-25 NRG Crystals detection in urine sediment by light microscopy NONE NRG Casts detection in urine sediment by light microscopy NONE NRG Mucus detection in urine sediment by light microscopy NEGATIVE NRG Complete urinalysis with reflex to culture YES NRG Bacterial urine culture - 10/14/17 12:20 Bacterial urine culture [id number] NRG COLONY COUNT >100,000/ML NR FTX;REPORTABLE SENSITIVITY REPORTED 10/16/17 10:05 NRG FREE TEXT ENTRY 2 PLUS, NRG FREE TEXT ENTRY 3 MIXED GRAM POSITIVES <10,000/ML NR Bacterial susceptibility panel - 10/14/17 12:20 Gentamicin susceptibility test by minimum inhibitory concentration < = NRG Trimethoprim/sulfamethoxazole susceptibility test by minimum inhibitoryconcentration S NRG Ampicillin susceptibility test by minimum inhibitory concentration > = NRG Tobramycin susceptibility test by minimum inhibitory concentration < = NRG Cefazolin susceptibility test by minimum inhibitory concentration < = NRG Ceftriaxone susceptibility test by minimum inhibitory concentration <= NRG Ampicillin/sulbactam susceptibility test by minimum inhibitory concentration R NRG Piperacillin/tazobactam susceptibility test by minimum inhibitory concentration S NRG Ciprofloxacin susceptibility test by minimum inhibitory concentration <= NRG Meropenem susceptibility test by minimum inhibitory concentration < = NRG Nitrofurantoin susceptibility test by minimum inhibitory concentration 32 NRG Aztreonam susceptibility test by minimum inhibitory concentration < = NRG Extended spectrum beta lactamase (ESBL) producing bacteria susceptibility test by minimum inhibitory concentration - NR Complete blood count (CBC) with automated white blood cell (WBC) differential - 10/16/17 15:45 Blood leukocytes automated count (number/volume) 14.0 10*3/uL 4.3-11.0 Blood erythrocytes automated count (number/volume) 4.21 10*6/uL 4.35-5.85 Venous blood hemoglobin measurement (mass/volume) 13.7 g/dL 11.5-16.0 Blood hematocrit (volume fraction) 40 % 35-52 Automated erythrocyte mean corpuscular volume 96 [foz_us] 80-99 Automated erythrocyte mean corpuscular hemoglobin (mass per erythrocyte) 33 pg 25-34 Automated erythrocyte mean corpuscular hemoglobin concentration measurement ( mass/volume) 34 g/dL 32-36 Automated erythrocyte distribution width ratio 13.7 % 10.0-14.5 Automated blood platelet count (count/volume) 344 10*3/uL 130-400 Automated blood platelet mean volume measurement 9.2 [foz_us] 7.4-10.4 Automated blood neutrophils/100 leukocytes 75 % 42-75 Automated blood lymphocytes/100 leukocytes 13 % 12-44 Blood monocytes/100 leukocytes 12 % 0-12 Automated blood eosinophils/100 leukocytes 0 % 0-10 Automated blood basophils/100 leukocytes 0 % 0-10 Blood neutrophils automated count (number/volume) 10.6 10*3 1.8-7.8 Blood lymphocytes automated count (number/volume) 1.8 10*3 1.0-4.0 Blood monocytes automated count (number/volume) 1.6 10*3 0.0-1.0 Automated eosinophil count 0.1 10*3/uL 0.0-0.3 Automated blood basophil count (count/volume) 0.0 10*3/uL 0.0-0.1 Blood manual differential performed detection - 10/16/17 15:45 Blood monocytes/100 leukocytes 3 % NRG Manual blood segmented neutrophils/100 leukocytes 79 % NRG Blood band neutrophils/100 leukocytes 2 % NRG Manual blood lymphocytes/100 leukocytes 16 % NRG Manual eosinophils/100 leukocytes in nose 0 % NRG Manual blood basophils/100 leukocytes 0 % NRG Blood erythrocyte morphology finding identification NORMAL NRG PT panel in platelet poor plasma by coagulation assay - 10/16/17 15:45 Prothrombin time (PT) in platelet poor plasma by coagulation assay 72.5 s 12.2-14.7 INR in platelet poor plasma or blood by coagulation assay 9.1 0.8-1.4 Activated partial thromboplastin time (aPTT) in platelet poor plasma bycoagulation assay - 10/16/17 15:45 Activated partial thromboplastin time (aPTT) in platelet poor plasma bycoagulation assay 91 s 24-35 Comprehensive metabolic panel - 10/16/17 15:45 Serum or plasma sodium measurement (moles/volume) 134 mmol/L 135-145 Serum or plasma potassium measurement (moles/volume) 4.6 mmol/L 3.6-5.0 Serum or plasma chloride measurement (moles/volume) 98 mmol/L 98-107 Carbon dioxide 24 mmol/L 21-32 Serum or plasma anion gap determination (moles/volume) 12 mmol/L 5-14 Serum or plasma urea nitrogen measurement (mass/volume) 51 mg/dL 7-18 Serum or plasma creatinine measurement (mass/volume) 1.81 mg/dL 0.60-1.30 Serum or plasma urea nitrogen/creatinine mass ratio 28 NRG Serum or plasma creatinine measurement with calculation of estimated glomerular filtration rate 27 NRG Serum or plasma glucose measurement (mass/volume) 125 mg/dL 70-105 Serum or plasma calcium measurement (mass/volume) 9.9 mg/dL 8.5-10.1 Serum or plasma total bilirubin measurement (mass/volume) 0.5 mg/dL 0.1-1.0 Serum or plasma alkaline phosphatase measurement (enzymatic activity/volume) 173 U/L 40-136 Serum or plasma aspartate aminotransferase measurement (enzymatic activity/ volume) 63 U/L 5-34 Serum or plasma alanine aminotransferase measurement (enzymatic activity/volume ) 82 U/L 0-55 Serum or plasma protein measurement (mass/volume) 7.2 g/dL 6.4-8.2 Serum or plasma albumin measurement (mass/volume) 3.4 g/dL 3.2-4.5 Magnesium - 10/16/17 15:45 Magnesium 2.1 mg/dL 1.8-2.4 PT panel in platelet poor plasma by coagulation assay - 10/16/17 19:25 Prothrombin time (PT) in platelet poor plasma by coagulation assay 79.6 s 12.2-14.7 INR in platelet poor plasma or blood by coagulation assay 10.2 0.8-1.4 Complete urinalysis with reflex to culture - 10/16/17 22:40 Urine color determination BROWN NRG Urine clarity determination VERY CLOUDY NRG Urine pH measurement by test strip 5 5-9 Specific gravity of urine by test strip 1.020 1.016- 1.022 Urine protein assay by test strip, semi-quantitative 2+ NEGATIVE Urine glucose detection by automated test strip NEGATIVE NEGATIVE Erythrocytes detection in urine sediment by light microscopy 5+ NEGATIVE Urine ketones detection by automated test strip NEGATIVE NEGATIVE Urine nitrite detection by test strip POSITIVE NEGATIVE Urine total bilirubin detection by test strip NEGATIVE NEGATIVE Urine urobilinogen measurement by automated test strip (mass/volume) NORMAL NORMAL Urine leukocyte esterase detection by dipstick 3+ NEGATIVE Automated urine sediment erythrocyte count by microscopy (number/high power field) [HPF] NRG Automated urine sediment leukocyte count by microscopy (number/high power field ) TNTC NRG Bacteria detection in urine sediment by light microscopy LARGE NRG Squamous epithelial cells detection in urine sediment by light microscopy 10-25 NRG Crystals detection in urine sediment by light microscopy NONE NRG Casts detection in urine sediment by light microscopy NONE NRG Mucus detection in urine sediment by light microscopy NEGATIVE NRG Complete urinalysis with reflex to culture YES NRG Bacterial urine culture - 10/16/17 22:40 Bacterial urine culture [id number] NRG COLONY COUNT >100,000/ML NR FTX;REPORTABLE SENSITIVITY REPORTED AT 0746, 1 NR URINE CULTURE RESULTS PLUS NR Bacterial susceptibility panel - 10/16/17 22:40 Gentamicin susceptibility test by minimum inhibitory concentration < = NRG Trimethoprim/sulfamethoxazole susceptibility test by minimum inhibitoryconcentration S NRG Ampicillin susceptibility test by minimum inhibitory concentration > = NRG Tobramycin susceptibility test by minimum inhibitory concentration < = NRG Cefazolin susceptibility test by minimum inhibitory concentration < = NRG Ceftriaxone susceptibility test by minimum inhibitory concentration <= NRG Ampicillin/sulbactam susceptibility test by minimum inhibitory concentration I NRG Piperacillin/tazobactam susceptibility test by minimum inhibitory concentration S NRG Ciprofloxacin susceptibility test by minimum inhibitory concentration <= NRG Meropenem susceptibility test by minimum inhibitory concentration < = NRG Nitrofurantoin susceptibility test by minimum inhibitory concentration 32 NRG Aztreonam susceptibility test by minimum inhibitory concentration < = NRG Extended spectrum beta lactamase (ESBL) producing bacteria susceptibility test by minimum inhibitory concentration - NR Complete blood count (CBC) with automated white blood cell (WBC) differential - 10/17/17 05:35 Blood leukocytes automated count (number/volume) 12.8 10*3/uL 4.3-11.0 Blood erythrocytes automated count (number/volume) 3.71 10*6/uL 4.35-5.85 Venous blood hemoglobin measurement (mass/volume) 12.2 g/dL 11.5-16.0 Blood hematocrit (volume fraction) 36 % 35-52 Automated erythrocyte mean corpuscular volume 96 [foz_us] 80-99 Automated erythrocyte mean corpuscular hemoglobin (mass per erythrocyte) 33 pg 25-34 Automated erythrocyte mean corpuscular hemoglobin concentration measurement ( mass/volume) 34 g/dL 32-36 Automated erythrocyte distribution width ratio 13.6 % 10.0-14.5 Automated blood platelet count (count/volume) 326 10*3/uL 130-400 Automated blood platelet mean volume measurement 9.6 [foz_us] 7.4-10.4 Automated blood neutrophils/100 leukocytes 80 % 42-75 Automated blood lymphocytes/100 leukocytes 9 % 12-44 Blood monocytes/100 leukocytes 10 % 0-12 Automated blood eosinophils/100 leukocytes 1 % 0-10 Automated blood basophils/100 leukocytes 0 % 0-10 Blood neutrophils automated count (number/volume) 10.3 10*3 1.8-7.8 Blood lymphocytes automated count (number/volume) 1.2 10*3 1.0-4.0 Blood monocytes automated count (number/volume) 1.3 10*3 0.0-1.0 Automated eosinophil count 0.1 10*3/uL 0.0-0.3 Automated blood basophil count (count/volume) 0.0 10*3/uL 0.0-0.1 Comprehensive metabolic panel - 10/17/17 05:35 Serum or plasma sodium measurement (moles/volume) 136 mmol/L 135-145 Serum or plasma potassium measurement (moles/volume) 4.6 mmol/L 3.6-5.0 Serum or plasma chloride measurement (moles/volume) 104 mmol/L 98-107 Carbon dioxide 20 mmol/L 21-32 Serum or plasma anion gap determination (moles/volume) 12 mmol/L 5-14 Serum or plasma urea nitrogen measurement (mass/volume) 50 mg/dL 7-18 Serum or plasma creatinine measurement (mass/volume) 1.51 mg/dL 0.60-1.30 Serum or plasma urea nitrogen/creatinine mass ratio 33 NRG Serum or plasma creatinine measurement with calculation of estimated glomerular filtration rate 33 NRG Serum or plasma glucose measurement (mass/volume) 104 mg/dL 70-105 Serum or plasma calcium measurement (mass/volume) 8.6 mg/dL 8.5-10.1 Serum or plasma total bilirubin measurement (mass/volume) 0.8 mg/dL 0.1-1.0 Serum or plasma alkaline phosphatase measurement (enzymatic activity/volume) 209 U/L 40-136 Serum or plasma aspartate aminotransferase measurement (enzymatic activity/ volume) 101 U/L 5-34 Serum or plasma alanine aminotransferase measurement (enzymatic activity/volume ) 90 U/L 0-55 Serum or plasma protein measurement (mass/volume) 5.5 g/dL 6.4-8.2 Serum or plasma albumin measurement (mass/volume) 2.6 g/dL 3.2-4.5 Complete blood count (CBC) with automated white blood cell (WBC) differential - 10/18/17 05:40 Blood leukocytes automated count (number/volume) 8.8 10*3/uL 4.3-11.0 Blood erythrocytes automated count (number/volume) 3.94 10*6/uL 4.35-5.85 Venous blood hemoglobin measurement (mass/volume) 12.9 g/dL 11.5-16.0 Blood hematocrit (volume fraction) 38 % 35-52 Automated erythrocyte mean corpuscular volume 96 [foz_us] 80-99 Automated erythrocyte mean corpuscular hemoglobin (mass per erythrocyte) 33 pg 25-34 Automated erythrocyte mean corpuscular hemoglobin concentration measurement ( mass/volume) 34 g/dL 32-36 Automated erythrocyte distribution width ratio 13.5 % 10.0-14.5 Automated blood platelet count (count/volume) 345 10*3/uL 130-400 Automated blood platelet mean volume measurement 9.5 [foz_us] 7.4-10.4 Automated blood neutrophils/100 leukocytes 74 % 42-75 Automated blood lymphocytes/100 leukocytes 11 % 12-44 Blood monocytes/100 leukocytes 13 % 0-12 Automated blood eosinophils/100 leukocytes 2 % 0-10 Automated blood basophils/100 leukocytes 0 % 0-10 Blood neutrophils automated count (number/volume) 6.5 10*3 1.8-7.8 Blood lymphocytes automated count (number/volume) 1.0 10*3 1.0-4.0 Blood monocytes automated count (number/volume) 1.2 10*3 0.0-1.0 Automated eosinophil count 0.2 10*3/uL 0.0-0.3 Automated blood basophil count (count/volume) 0.0 10*3/uL 0.0-0.1 Comprehensive metabolic panel - 10/18/17 05:40 Serum or plasma sodium measurement (moles/volume) 138 mmol/L 135-145 Serum or plasma potassium measurement (moles/volume) 4.4 mmol/L 3.6-5.0 Serum or plasma chloride measurement (moles/volume) 105 mmol/L 98-107 Carbon dioxide 22 mmol/L 21-32 Serum or plasma anion gap determination (moles/volume) 11 mmol/L 5-14 Serum or plasma urea nitrogen measurement (mass/volume) 39 mg/dL 7-18 Serum or plasma creatinine measurement (mass/volume) 1.25 mg/dL 0.60-1.30 Serum or plasma urea nitrogen/creatinine mass ratio 31 NRG Serum or plasma creatinine measurement with calculation of estimated glomerular filtration rate 41 NRG Serum or plasma glucose measurement (mass/volume) 108 mg/dL 70-105 Serum or plasma calcium measurement (mass/volume) 9.7 mg/dL 8.5-10.1 Serum or plasma total bilirubin measurement (mass/volume) 0.9 mg/dL 0.1-1.0 Serum or plasma alkaline phosphatase measurement (enzymatic activity/volume) 333 U/L 40-136 Serum or plasma aspartate aminotransferase measurement (enzymatic activity/ volume) 135 U/L 5-34 Serum or plasma alanine aminotransferase measurement (enzymatic activity/volume ) 124 U/L 0-55 Serum or plasma protein measurement (mass/volume) 6.1 g/dL 6.4-8.2 Serum or plasma albumin measurement (mass/volume) 2.8 g/dL 3.2-4.5 PT panel in platelet poor plasma by coagulation assay - 10/18/17 06:40 Prothrombin time (PT) in platelet poor plasma by coagulation assay 21.7 s 12.2-14.7 INR in platelet poor plasma or blood by coagulation assay 1.9 0.8-1.4 Serum or plasma troponin i.cardiac measurement (mass/volume) - 10/18/17 08:50 Serum or plasma troponin i.cardiac measurement (mass/volume) < ng/ mL <0.30 Complete blood count (CBC) with automated white blood cell (WBC) differential - 10/19/17 04:04 Blood leukocytes automated count (number/volume) 7.9 10*3/uL 4.3-11.0 Blood erythrocytes automated count (number/volume) 3.85 10*6/uL 4.35-5.85 Venous blood hemoglobin measurement (mass/volume) 12.6 g/dL 11.5-16.0 Blood hematocrit (volume fraction) 37 % 35-52 Automated erythrocyte mean corpuscular volume 96 [foz_us] 80-99 Automated erythrocyte mean corpuscular hemoglobin (mass per erythrocyte) 33 pg 25-34 Automated erythrocyte mean corpuscular hemoglobin concentration measurement ( mass/volume) 34 g/dL 32-36 Automated erythrocyte distribution width ratio 13.6 % 10.0-14.5 Automated blood platelet count (count/volume) 350 10*3/uL 130-400 Automated blood platelet mean volume measurement 9.2 [foz_us] 7.4-10.4 Automated blood neutrophils/100 leukocytes 62 % 42-75 Automated blood lymphocytes/100 leukocytes 20 % 12-44 Blood monocytes/100 leukocytes 15 % 0-12 Automated blood eosinophils/100 leukocytes 4 % 0-10 Automated blood basophils/100 leukocytes 0 % 0-10 Blood neutrophils automated count (number/volume) 4.9 10*3 1.8-7.8 Blood lymphocytes automated count (number/volume) 1.6 10*3 1.0-4.0 Blood monocytes automated count (number/volume) 1.2 10*3 0.0-1.0 Automated eosinophil count 0.3 10*3/uL 0.0-0.3 Automated blood basophil count (count/volume) 0.0 10*3/uL 0.0-0.1 PT panel in platelet poor plasma by coagulation assay - 10/19/17 04:04 Prothrombin time (PT) in platelet poor plasma by coagulation assay 26.2 s 12.2-14.7 INR in platelet poor plasma or blood by coagulation assay 2.4 0.8-1.4 Comprehensive metabolic panel - 10/19/17 04:04 Serum or plasma sodium measurement (moles/volume) 138 mmol/L 135-145 Serum or plasma potassium measurement (moles/volume) 4.4 mmol/L 3.6-5.0 Serum or plasma chloride measurement (moles/volume) 105 mmol/L 98-107 Carbon dioxide 21 mmol/L 21-32 Serum or plasma anion gap determination (moles/volume) 12 mmol/L 5-14 Serum or plasma urea nitrogen measurement (mass/volume) 30 mg/dL 7-18 Serum or plasma creatinine measurement (mass/volume) 1.16 mg/dL 0.60-1.30 Serum or plasma urea nitrogen/creatinine mass ratio 26 NRG Serum or plasma creatinine measurement with calculation of estimated glomerular filtration rate 45 NRG Serum or plasma glucose measurement (mass/volume) 98 mg/dL 70-105 Serum or plasma calcium measurement (mass/volume) 10.1 mg/dL 8.5-10.1 Serum or plasma total bilirubin measurement (mass/volume) 0.6 mg/dL 0.1-1.0 Serum or plasma alkaline phosphatase measurement (enzymatic activity/volume) 302 U/L 40-136 Serum or plasma aspartate aminotransferase measurement (enzymatic activity/ volume) 75 U/L 5-34 Serum or plasma alanine aminotransferase measurement (enzymatic activity/volume ) 91 U/L 0-55 Serum or plasma protein measurement (mass/volume) 5.9 g/dL 6.4-8.2 Serum or plasma albumin measurement (mass/volume) 2.7 g/dL 3.2-4.5 Serum or plasma troponin i.cardiac measurement (mass/volume) - 10/19/17 04:04 Serum or plasma troponin i.cardiac measurement (mass/volume) < ng/ mL <0.30 Complete blood count (CBC) with automated white blood cell (WBC) differential - 10/20/17 06:27 Blood leukocytes automated count (number/volume) 8.3 10*3/uL 4.3-11.0 Blood erythrocytes automated count (number/volume) 3.87 10*6/uL 4.35-5.85 Venous blood hemoglobin measurement (mass/volume) 12.6 g/dL 11.5-16.0 Blood hematocrit (volume fraction) 37 % 35-52 Automated erythrocyte mean corpuscular volume 96 [foz_us] 80-99 Automated erythrocyte mean corpuscular hemoglobin (mass per erythrocyte) 33 pg 25-34 Automated erythrocyte mean corpuscular hemoglobin concentration measurement ( mass/volume) 34 g/dL 32-36 Automated erythrocyte distribution width ratio 13.6 % 10.0-14.5 Automated blood platelet count (count/volume) 404 10*3/uL 130-400 Automated blood platelet mean volume measurement 9.1 [foz_us] 7.4-10.4 Automated blood neutrophils/100 leukocytes 58 % 42-75 Automated blood lymphocytes/100 leukocytes 22 % 12-44 Blood monocytes/100 leukocytes 15 % 0-12 Automated blood eosinophils/100 leukocytes 5 % 0-10 Automated blood basophils/100 leukocytes 0 % 0-10 Blood neutrophils automated count (number/volume) 4.8 10*3 1.8-7.8 Blood lymphocytes automated count (number/volume) 1.8 10*3 1.0-4.0 Blood monocytes automated count (number/volume) 1.3 10*3 0.0-1.0 Automated eosinophil count 0.4 10*3/uL 0.0-0.3 Automated blood basophil count (count/volume) 0.0 10*3/uL 0.0-0.1 PT panel in platelet poor plasma by coagulation assay - 10/20/17 06:27 Prothrombin time (PT) in platelet poor plasma by coagulation assay 24.8 s 12.2-14.7 INR in platelet poor plasma or blood by coagulation assay 2.3 0.8-1.4 Comprehensive metabolic panel - 10/20/17 06:27 Serum or plasma sodium measurement (moles/volume) 139 mmol/L 135-145 Serum or plasma potassium measurement (moles/volume) 4.2 mmol/L 3.6-5.0 Serum or plasma chloride measurement (moles/volume) 104 mmol/L 98-107 Carbon dioxide 23 mmol/L 21-32 Serum or plasma anion gap determination (moles/volume) 12 mmol/L 5-14 Serum or plasma urea nitrogen measurement (mass/volume) 29 mg/dL 7-18 Serum or plasma creatinine measurement (mass/volume) 1.24 mg/dL 0.60-1.30 Serum or plasma urea nitrogen/creatinine mass ratio 23 NRG Serum or plasma creatinine measurement with calculation of estimated glomerular filtration rate 41 NR Serum or plasma glucose measurement (mass/volume) 104 mg/dL 70-105 Serum or plasma calcium measurement (mass/volume) 10.3 mg/dL 8.5-10.1 Serum or plasma total bilirubin measurement (mass/volume) 0.4 mg/dL 0.1-1.0 Serum or plasma alkaline phosphatase measurement (enzymatic activity/volume) 301 U/L 40-136 Serum or plasma aspartate aminotransferase measurement (enzymatic activity/ volume) 48 U/L 5-34 Serum or plasma alanine aminotransferase measurement (enzymatic activity/volume ) 78 U/L 0-55 Serum or plasma protein measurement (mass/volume) 6.2 g/dL 6.4-8.2 Serum or plasma albumin measurement (mass/volume) 2.7 g/dL 3.2-4.5 Influenza virus A and B antigen detection - 10/20/17 13:20 FLU RESULT NEGATIVE FOR INFLUENZA A AND B ANTIGENS BY [facility] Complete blood count (CBC) with automated white blood cell (WBC) differential - 10/21/17 06:00 Blood leukocytes automated count (number/volume) 6.7 10*3/uL 4.3-11.0 Blood erythrocytes automated count (number/volume) 3.91 10*6/uL 4.35-5.85 Venous blood hemoglobin measurement (mass/volume) 12.6 g/dL 11.5-16.0 Blood hematocrit (volume fraction) 38 % 35-52 Automated erythrocyte mean corpuscular volume 96 [foz_us] 80-99 Automated erythrocyte mean corpuscular hemoglobin (mass per erythrocyte) 32 pg 25-34 Automated erythrocyte mean corpuscular hemoglobin concentration measurement ( mass/volume) 34 g/dL 32-36 Automated erythrocyte distribution width ratio 13.5 % 10.0-14.5 Automated blood platelet count (count/volume) 390 10*3/uL 130-400 Automated blood platelet mean volume measurement 8.9 [[facility]] 7.4-10.4 Automated blood neutrophils/100 leukocytes 55 % 42-75 Automated blood lymphocytes/100 leukocytes 21 % 12-44 Blood monocytes/100 leukocytes 17 % 0-12 Automated blood eosinophils/100 leukocytes 6 % 0-10 Automated blood basophils/100 leukocytes 1 % 0-10 Blood neutrophils automated count (number/volume) 3.7 10*3 1.8-7.8 Blood lymphocytes automated count (number/volume) 1.4 10*3 1.0-4.0 Blood monocytes automated count (number/volume) 1.2 10*3 0.0-1.0 Automated eosinophil count 0.4 10*3/uL 0.0-0.3 Automated blood basophil count (count/volume) 0.0 10*3/uL 0.0-0.1 PT panel in platelet poor plasma by coagulation assay - 10/21/17 06:00 Prothrombin time (PT) in platelet poor plasma by coagulation assay 22.4 s 12.2-14.7 INR in platelet poor plasma or blood by coagulation assay 2.0 0.8-1.4 Comprehensive metabolic panel - 10/21/17 06:00 Serum or plasma sodium measurement (moles/volume) 137 mmol/L 135-145 Serum or plasma potassium measurement (moles/volume) 4.4 mmol/L 3.6-5.0 Serum or plasma chloride measurement (moles/volume) 104 mmol/L 98-107 Carbon dioxide 24 mmol/L 21-32 Serum or plasma anion gap determination (moles/volume) 9 mmol/L 5-14 Serum or plasma urea nitrogen measurement (mass/volume) 25 mg/dL 7-18 Serum or plasma creatinine measurement (mass/volume) 1.18 mg/dL 0.60-1.30 Serum or plasma urea nitrogen/creatinine mass ratio 21 NRG Serum or plasma creatinine measurement with calculation of estimated glomerular filtration rate 44 NRG Serum or plasma glucose measurement (mass/volume) 113 mg/dL 70-105 Serum or plasma calcium measurement (mass/volume) 10.1 mg/dL 8.5-10.1 Serum or plasma total bilirubin measurement (mass/volume) 0.3 mg/dL 0.1-1.0 Serum or plasma alkaline phosphatase measurement (enzymatic activity/volume) 280 U/L 40-136 Serum or plasma aspartate aminotransferase measurement (enzymatic activity/ volume) 32 U/L 5-34 Serum or plasma alanine aminotransferase measurement (enzymatic activity/volume ) 55 U/L 0-55 Serum or plasma protein measurement (mass/volume) 5.7 g/dL 6.4-8.2 Serum or plasma albumin measurement (mass/volume) 2.5 g/dL 3.2-4.5 Encounters ACCT No. Visit Date/Time Discharge Status Pt. Type Provider Facility Loc./Unit Complaint [id number] 10/16/2017 17:08:00 10/21/2017 16:00:00 DIS Outpatient DOLORES WEEKS DO Via [facility] 4TH UTI,ACUTE RENAL FAILURE/ DEHYDRATION [id number] 10/14/2017 11:35:00 10/14/2017 13:31:00 DIS Outpatient STEVIE HWANG MD Via [facility] ER BODY PAINS,SOA [id number] 05/07/2017 13:24:00 05/07/2017 23:59:59 CLS Outpatient CK SANDOVAL Via [facility] CARD AFIB I48.2, CAD I25.10 [id number] 01/30/2017 13:56:00 01/30/2017 16:00:00 DIS Outpatient MALLORY SOLIS MD Via [facility] WOUNDCARE [id number] 12/04/2016 11:31:00 12/04/2016 16:00:00 DIS Outpatient MALLORY SOLIS MD [facility] WOUNDCARE [id number] 11/21/2016 13:22:00 11/21/2016 16:00:00 DIS Outpatient MALLORY SOLIS MD [facility] WOUNDCARE [id number] 07/26/2016 11:57:00 07/26/2016 23:59:59 CLS Outpatient SERGEI ROMAN MD Via [facility] CARD ELEVATED LIVER ENZYMES [id number] 07/17/2016 09:47:00 07/17/2016 23:59:59 CLS Outpatient SERGEI ROMAN MD [facility] RAD ELEVATED LIVER ENZYME [id number] 07/03/2016 13:49:00 07/03/2016 23:59:59 CLS Outpatient SERGEI ROMAN MD [facility] RAD ELEVATED LIVER ENZYMES [id number] 05/27/2016 18:57:00 05/27/2016 21:35:00 DIS Emergency HAYDER VERGARA Via [facility] ER R CALF REDNESS/PAIN [id number] 04/18/2016 09:30:00 04/18/2016 15:30:00 DIS Outpatient MALLORY BLAS MD [facility] SDC SYMPTOMATIC HARDWARE RIGHT ANKLE [id number] 04/17/2016 14:32:00 04/17/2016 23:59:59 CLS Outpatient CK SANDOVAL Via [facility] CARD CAD, HTN, HYPERLIPIDEMIA, PAF [id number] 04/12/2016 10:30:00 04/12/2016 11:52:00 DIS Outpatient MALLORY BLAS MD [facility] PREOP SYMPTOMATIC HARDWARE RIGHT ANKLE [id number] 01/28/2016 15:38:00 01/28/2016 17:09:00 DIS Emergency HAYDER VERGARA Via [facility] ER VAG DISCHARGE [id number] 09/02/2015 09:36:00 09/02/2015 23:59:59 CLS Outpatient VIJAY SIDDIQUI MD Via [facility] CARD CAD,HTN,HLP [id number] 07/12/2015 23:33:00 07/12/2015 23:59:59 CLS Emergency ROBERT CHILEL DO Via [facility] ER BACK PAIN [id number] 06/29/2015 14:12:00 06/29/2015 23:59:59 CLS Outpatient SERGEI ROMAN MD [facility] CARD FAILED BACK [id number] 06/09/2015 09:56:00 06/09/2015 23:59:59 CLS Outpatient VIJAY SIDDIQUI MD [facility] CARD CAD,HTN,HLP,PAF [id number] 02/20/2015 18:38:00 02/20/2015 20:43:00 DIS Emergency HAYDER VERGARA [facility] ER L SIDE ANN MARIE AREA PAIN [id number] 01/24/2015 15:17:00 01/24/2015 23:59:59 CLS Outpatient ABEL ESPARZA, SERGEI Moreno Via [facility] RAD RADICULOPLATHY [id number] 05/06/2014 13:34:00 05/06/2014 23:59:59 CLS Outpatient VIJAY SIDDIQUI MD [facility] CARD HLP,HTN,CAD [id number] 06/17/2013 11:26:00 06/18/2013 12:56:00 DIS Inpatient VIJAY SIDDIQUI MD [facility] CSD CHEST PAIN PALPITATIONS [id number] 07/15/2015 12:43:00 Document Registration [id number] 11/08/2011 12:43:00 Document Registration [id number] 10/09/2011 13:33:00 Document Registration [id number] 03/14/2010 19:06:00 Document Registration
[2017-11-02] MEDS ORDERED: ACETAMINOPHEN 325 MG TABLET/CAPLET (TYLENOL) PO ONE (17:00)
[2017-11-02] MEDS ORDERED: NS IV 1000 ML 1,000 ML IV ONE (17:13)
--- NOTE | 2017-11-02 17:13 | ED General ---
General Chief Complaint: Fever-Adult/Adol Stated Complaint: BODYACHES,CHANGED MEDICATION Nursing Triage Note: c/o fever/bodyaches. Hx of recent UTI. Notable right hand redness/swelling. Nursing Sepsis Screen: Possible Sepsis Risk Source of Information: Patient, Family, Old Records Exam Limitations: No Limitations History of Present Illness Date Seen by Provider: Nov 02, 2017 Time Seen by Provider: 16:20 Initial Comments This pleasant 82-year-old woman presents to the emergency room with complaints of feeling chilled and achy. She was recently admitted to the hospital for confusion and urinary tract infection. She was [facility] and then return home as mentation cleared. Patient reports some medication changes recently including a change from warfarin to Eliquis. Patient notes a generalized musculoskeletal pain but she also has a focused erythema, tenderness, heat, and swelling about the right wrist. She also stated she had pain across the lower chest with movement earlier that has now resolved. Temperature is 100.3 on assessment. Patient has atrial fibrillation and appears tachycardic on exam. Patient is alert and oriented. She is accompanied by her niece. Allergies and Home Medications Allergies Coded Allergies: sulfamethoxazole (Verified Allergy, Severe, CHEST TIGHTNESS, 03/15/10) trimethoprim (Verified Allergy, Severe, CHEST TIGHTNESS, 03/15/10) amiodarone (Verified Allergy, Intermediate, MADE HER COLD, 04/12/16) clindamycin (Verified Allergy, Intermediate, HEARTBURN, 04/12/16) Penicillins (Verified Allergy, Unknown, RASH, HAS RECEIVED ANCEF W/O PROBLEM, 04/18/16) dronedarone (Verified Allergy, Unknown, 04/12/16) hydrochlorothiazide (Verified Allergy, Unknown, 04/12/16) metoprolol (Unverified Allergy, Unknown, 04/18/16) Tetracyclines (Verified Adverse Reaction, Unknown, 11/04/17) Severe Heartburn levofloxacin (Unverified Adverse Reaction, Unknown, CHEST TIGHTNESS, ) Home Medications Apixaban 2.5 Mg Tablet, 2.5 MG PO BID, (Reported) Calcium Carbonate 500 Mg Tab.chew, 500 MG PO DAILY, (Reported) Calcium Citrate/Vitamin D3 1 Each Tablet, 1 TAB PO 1300, (Reported) Cholecalciferol (Vitamin D3) 2,000 Unit Capsule, 2,000 UNIT PO DAILY, (Reported) Diltiazem HCl 120 Mg Tab.er.24h, 120 MG PO HS, (Reported) Estradiol 42.5 Gm Cream.appl, TP HS, (Reported) Fish Oil/Dha/Epa 1 Each Capsule, 1,200 MG PO TID, (Reported) Fluticasone Propionate 9.9 Ml Tyndall.susp, 1 SPRAY NSEACH DAILY PRN for ALLERGIES , (Reported) Gabapentin 100 Mg Capsule, 100 MG PO TID, (Reported) Ketotifen Fumarate 5 Ml Drops, 1 DROP OU DAILY PRN for ALLERGIES, (Reported) Lactobacillus Combination No.4 1 Each Capsule, 1 CAP PO DAILY, (Reported) Magnesium Oxide 250 Mg Tablet, 250 MG PO DAILY, (Reported) Methadone HCl 10 Mg Tablet, 5 MG PO DAILY PRN for FOOT PAIN, (Reported) Multivits-Min/Iron/FA/Lutein 1 Each Tablet, 1 TAB PO DAILY, (Reported) Naproxen Sodium 220 Mg Capsule, 440 MG PO DAILY PRN for PAIN-MILD, (Reported) Pitavastatin Calcium 2 Mg Tablet, 2 MG PO HS, (Reported) TAKES 1/2 (4 MG) TABLET Potassium Gluconate 99 Mg Tablet, 99 MG PO HS, (Reported) Sodium Fluoride 51 Gm Cream..g., DT HS, (Reported) Triazolam 0.25 Mg Tablet, 0.25 MG PO HS, (Reported) Constitutional: see HPI EENTM: no symptoms reported Respiratory: no symptoms reported Cardiovascular: see HPI Gastrointestinal: no symptoms reported Genitourinary: no symptoms reported : No Musculoskeletal: see HPI Skin: see HPI Psychiatric/Neurological: No Symptoms Reported Hematologic/Lymphatic: No Symptoms Reported Immunological/Allergic: no symptoms reported Past Lxgnwaf-Vdcjch-Uodsym Hx Patient Social History Alcohol Beverage of Choice: Other 2nd Hand Smoke Exposure: No Recent Foreign Travel: No Contact w/Someone Who Travel: No Recent Infectious Disease Expo: No Recent Hopitalizations: No Immunizations Up To Date Tetanus Booster (TDap): Unknown Date of Pneumonia Vaccine: May 31, 2009 Date of Influenza Vaccine: Oct 17, 2017 Seasonal Allergies Seasonal Allergies: No Surgeries History of Surgeries: Yes (APPY-1963, "STIMULATOR" IN BACK, RIGHT ANKLE SURGERY ) Surgeries: Appendectomy, Hysterectomy, Neurological, Orthopedic Respiratory History of Respiratory Disorde: Yes (WHOOPING COUGH AT AGE 6YRS.) Cardiovascular History of Cardiac Disorders: Yes (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) Cardiac Disorders: Atrial Fibrillation, Hypertension Neurological History of Neurological Disord: Yes (NEUROPATHY ALL OVER, 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) Neurological Disorders: Neuropathy Reproductive System : No Hx Reproductive Disorders: No 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 Genitourinary History of Genitourinary Disor: Yes Genitourinary Disorders: UTI-Chronic Gastrointestinal History of Gastrointestinal Di: Yes Gastrointestinal Disorders: Gastroesophageal Reflux, Chronic Constipation Musculoskeletal History of Musculoskeletal Dis: Yes (CHRONIC NECK PAIN, LUMBAR RADICULOPATHY) Musculoskeletal Disorders: Chronic Back Pain Endocrine History of Endocrine Disorders: No HEENT History of HEENT Disorders: No Loss of Vision: Bilateral Cancer History of Cancer: No Psychosocial History of Psychiatric Problem: Yes Behavioral Health Disorders: Anxiety Integumentary History of Skin or Integumenta: No Blood Transfusions History of Blood Disorders: No Adverse Reaction to a Blood Tr: No (N/A) Family Medical History Significant Family History: No Pertinent Family Hx Physical Exam-Suspected Sepsis Physical Exam Vital Signs Vital Sign - Last 12Hours 11/02/17 11/03/17 16:30 00:00 Temp 100.3 Pulse 110 Resp 18 B/P (MAP) 143/129 (134) Pulse Ox 97 O2 Delivery Room Air O2 Flow Rate 2.00 Capillary Refill : Less Than 3 Seconds Blood Pressure Mean: 134 General Appearance: WD/WN, Mild Distress, Thin HEENT: PERRL/EOMI, Normal ENT Inspection Neck: Normal Inspection Respiratory: Lungs Clear, Normal Breath Sounds, No Accessory Muscle Use, No Respiratory Distress Cardiovascular: No Edema, No Murmur, Irregularly Irregular Gastrointestinal: Normal Bowel Sounds, Non Tender, Soft Extremity: Pedal Edema, Swelling, Other (chronic swelling and erythema of the lower extremities bilaterally. Right wrist is tender, swollen, hot, and erythematous. 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, nurse practitioner II-XII Norm as Tested Skin: normal color, warm/dry, other (Erythema of the RUE) Focused Exam Evaluation Lactate Level Laboratory Tests 11/02/17 17:17: Lactic Acid Level 1.04 Lactic Acid Level Progress/Results/Core Measures Suspected Sepsis Recent Fever Within 48 Hours: Yes Infection Criteria Present: Suspected New Infection New/Unexplained Altered Menta: No Sepsis Screen: Possible Sepsis Risk Sepsis Diagnosis: SIRS Temperature:100.3 Pulse: 110 Respiratory Rate: 18 Laboratory Tests 11/03/17 03:54: White Blood Count 8.0 11/04/17 01:00: White Blood Count 11.7H 11/05/17 04:10: White Blood Count 10.2 Blood Pressure 143 /129 Mean: 134 Laboratory Tests 11/02/17 17:17: Lactic Acid Level 1.04 Laboratory Tests 11/02/17 17:17: INR Comment 1.6H, Total Bilirubin 0.9 11/03/17 03:54: INR Comment 1.8H, Creatinine 0.83, Platelet Count 414H 11/04/17 01:00: Creatinine 0.81, Platelet Count 436H 11/05/17 04:10: Creatinine 0.78, Platelet Count 415H Results/Orders Lab Results Laboratory Tests Test 11/03/17 12:45 11/03/17 18:52 11/04/17 01:00 11/04/17 07:15 Range/Units Activated Partial Thromboplast Time 75 H 113 H 113 H 94 H 24-35 SEC Troponin I < 0.30 < 0.30 <0.30 NG/ML White Blood Count 11.7 H 4.3-11.0 10^3/uL Red Blood Count 3.39 L 4.35-5.85 10^6/uL Hemoglobin 11.0 L 11.5-16.0 G/DL Hematocrit 32 L 35-52 % Mean Corpuscular Volume 96 80-99 FL Mean Corpuscular Hemoglobin 32 25-34 PG Mean Corpuscular Hemoglobin Concent 34 32-36 G/DL Red Cell Distribution Width 13.6 10.0-14.5 % Platelet Count 436 H 130-400 10^3/uL Mean Platelet Volume 8.9 7.4-10.4 FL Neutrophils (%) (Auto) 68 42-75 % Lymphocytes (%) (Auto) 17 12-44 % Monocytes (%) (Auto) 12 0-12 % Eosinophils (%) (Auto) 2 0-10 % Basophils (%) (Auto) 0 0-10 % Neutrophils # (Auto) 8.0 H 1.8-7.8 X 10^3 Lymphocytes # (Auto) 2.0 1.0-4.0 X 10^3 Monocytes # (Auto) 1.4 H 0.0-1.0 X 10^3 Eosinophils # (Auto) 0.3 0.0-0.3 10^3/uL Basophils # (Auto) 0.0 0.0-0.1 10^3/uL Sodium Level 134 L 135-145 MMOL/L Potassium Level 4.0 3.6-5.0 MMOL/L Chloride Level 106 98-107 MMOL/L Carbon Dioxide Level 19 L 21-32 MMOL/L Anion Gap 9 5-14 MMOL/L Blood Urea Nitrogen 15 7-18 MG/DL Creatinine 0.81 0.60-1.30 MG/DL Estimat Glomerular Filtration Rate > 60 BUN/Creatinine Ratio 19 Glucose Level 129 H 70-105 MG/DL Calcium Level 8.2 L 8.5-10.1 MG/DL Phosphorus Level 2.9 2.3-4.7 MG/DL Magnesium Level 1.5 L 1.8-2.4 MG/DL Vancomycin Level Trough 21.7 H 10.0-20.0 UG/ML Test 11/04/17 07:58 11/04/17 13:46 11/05/17 04:10 11/05/17 09:00 Range/Units B-Type Natriuretic Peptide 396.6 H <100.0 PG/ML Activated Partial Thromboplast Time 68 H 31 24-35 SEC White Blood Count 10.2 4.3-11.0 10^3/uL Red Blood Count 3.31 L 4.35-5.85 10^6/uL Hemoglobin 10.6 L 11.5-16.0 G/DL Hematocrit 32 L 35-52 % Mean Corpuscular Volume 96 80-99 FL Mean Corpuscular Hemoglobin 32 25-34 PG Mean Corpuscular Hemoglobin Concent 33 32-36 G/DL Red Cell Distribution Width 13.7 10.0-14.5 % Platelet Count 415 H 130-400 10^3/uL Mean Platelet Volume 9.4 7.4-10.4 FL Neutrophils (%) (Auto) 62 42-75 % Lymphocytes (%) (Auto) 19 12-44 % Monocytes (%) (Auto) 16 H 0-12 % Eosinophils (%) (Auto) 3 0-10 % Basophils (%) (Auto) 0 0-10 % Neutrophils # (Auto) 6.3 1.8-7.8 X 10^3 Lymphocytes # (Auto) 1.9 1.0-4.0 X 10^3 Monocytes # (Auto) 1.6 H 0.0-1.0 X 10^3 Eosinophils # (Auto) 0.4 H 0.0-0.3 10^3/uL Basophils # (Auto) 0.0 0.0-0.1 10^3/uL Sodium Level 134 L 135-145 MMOL/L Potassium Level 4.1 3.6-5.0 MMOL/L Chloride Level 108 H 98-107 MMOL/L Carbon Dioxide Level 17 L 21-32 MMOL/L Anion Gap 9 5-14 MMOL/L Blood Urea Nitrogen 10 7-18 MG/DL Creatinine 0.78 0.60-1.30 MG/DL Estimat Glomerular Filtration Rate > 60 BUN/Creatinine Ratio 13 Glucose Level 105 70-105 MG/DL Calcium Level 8.7 8.5-10.1 MG/DL Phosphorus Level 3.6 2.3-4.7 MG/DL Magnesium Level 2.0 1.8-2.4 MG/DL Body Fluid Glucose 104 MG/DL Body Fluid Total Protein 2.6 G/DL Body Fluid Lactate Dehydrogenase 231 U/L Test 11/05/17 09:15 Range/Units Vancomycin Level Trough 19.6 10.0-20.0 UG/ML Micro Results My Orders Orders - KONRAD RUSS MD Ekg Tracing (11/04/17 05:47) Iv Infusion <= First Hr Ed (11/02/17 ) Medications Given in ED Vital Signs/I&O Vital Sign - Last 12Hours 11/04/17 11/04/17 11/04/17 11/05/17 23:00 23:00 23:50 00:00 Temp 99.9 Pulse 101 92 Resp 14 15 B/P (MAP) 106/66 (79) 107/65 (79) Pulse Ox 91 91 91 91 O2 Delivery Nasal Cannula Nasal Cannula Nasal Cannula Nasal Cannula O2 Flow Rate 3.00 3.00 3.00 3.00 11/05/17 11/05/17 11/05/17 11/05/17 01:00 01:00 02:00 02:30 Pulse 85 93 90 Resp 14 20 B/P (MAP) 98/79 (85) 122/82 (95) Pulse Ox 94 91 92 O2 Delivery Nasal Cannula Nasal Cannula Nasal Cannula O2 Flow Rate 3.00 3.00 3.00 11/05/17 11/05/17 11/05/17 11/05/17 03:00 04:00 04:00 04:00 Temp 99.9 Pulse 91 82 Resp 17 16 B/P (MAP) 118/90 (99) 116/84 (95) Pulse Ox 92 93 92 O2 Delivery Nasal Cannula Nasal Cannula Nasal Cannula O2 Flow Rate 3.00 3.00 3.00 11/05/17 11/05/17 11/05/17 11/05/17 05:00 06:00 06:15 07:00 Pulse 98 85 105 Resp 17 15 16 B/P (MAP) 121/77 (92) 126/77 (93) 130/90 (103) Pulse Ox 92 92 93 92 O2 Delivery Nasal Cannula Nasal Cannula Nasal Cannula Nasal Cannula O2 Flow Rate 3.00 3.00 3.00 3.00 11/05/17 11/05/17 11/05/17 11/05/17 07:00 08:00 08:00 09:00 Pulse 98 94 105 Resp 17 13 B/P (MAP) 132/88 (103) 118/96 (103) Pulse Ox 92 93 90 O2 Delivery Nasal Cannula Nasal Cannula Nasal Cannula O2 Flow Rate 3.00 3.00 3.00 Capillary Refill : Less Than 3 Seconds Blood Pressure Mean: 134 Progress Note #1: Time: 18:30 Progress Note Sepsis was suspected during initial assessment due to fever and possible source of infection with possible cellulitis in the right upper extremity and recent UTI. Patient was started on IV fluids as she was tachycardic. Atrial fibrillation with RVR was confirmed when the patient was placed on the monitor. Patient was found to have urinary tract infection again by urinalysis. She was started on Rocephin based on the prior urine cultures. The right upper extremity erythema, pain, and swelling was evaluated with x-ray and serum uric acid. Uric acid was normal. X-ray revealed chronic findings. The symptoms of the wrist are now felt to be cellulitis. Progress Note #2: Time: 18:46 Progress Note Case was reviewed with both Dr. Pedraza and Dr. Nye. Given the possible multiple sources of infection, I will order a broader spectrum antibiotics on the admission orders. Meropenem and vancomycin were selected as patient also has multiple medication allergies. Meropenem should cover the magaly found on her prior urine culture. Cardizem drip is being initiated. Patient will be admitted to the ICU. She did request DO NOT RESUSCITATE. ECG Initial ECG Impression Date: Nov 02, 2017 Initial ECG Impression Time: 18:29 Initial ECG Rate: 136 Initial ECG Rhythm: A Fib/Flutter Comment Atrial fibrillation with rapid ventricular response. No acute ST elevation. Diagnostic Imaging Diagonstic Imaging: Xray Plain Films/CT/US/NM/MRI: chest Comments Chest x-ray viewed by me. Report reviewed. See report below: NAME: [facility] REC#: [id number] PT STATUS: REG ER : 1935 PHYSICIAN: KONRAD RUSS MD ADMIT DATE: 11/02/17/ER Draft Date of Exam:11/02/17 CHEST 1 VIEW, AP/PA ONLY INDICATION: Chest pain. EXAMINATION: Portable upright view of the chest was obtained. COMPARISON: Study of 10/16/2017. FINDINGS: There has been an interval increase in left pleural fluid with subjacent atelectasis in the left base. No pneumothorax identified. There is no evidence of new consolidation. There is volume loss in the right upper lobe with pleural parenchymal densities again noted in the apices similar to previous exam. IMPRESSION: Chronic findings in the lungs with interval increase in mild to moderate left pleural fluid and subjacent atelectasis. No other significant change is identified. Dictated on workstation # [id number] Dict: 11/02/17 1824 Trans: 11/02/17 1834 [facility] [id number] Interpreted by: MARY KATE DOWNS MD Diagonstic Imaging: Xray Plain Films/CT/US/NM/MRI: other (right wrist) Comments Right wrist x-ray viewed by me and report reviewed. See report below: NAME: PURVI [facility] REC#: [id number] PT STATUS: REG ER : 1935 PHYSICIAN: KONRAD RUSS MD ADMIT DATE: 11/02/17/ER Draft Date of Exam:11/02/17 WRIST, RIGHT, 3 VIEWS OR MORE INDICATION: Right wrist injury with swelling and erythema. EXAMINATION: AP, oblique and lateral views of the right wrist were obtained. FINDINGS: Old fracture deformity of the distal radial metaphysis with moderate dorsal angulation. There are prominent marginal spurs about the distal radius and ulna with narrowing of the radiocarpal joint space. Numerous subchondral cysts are present with dystrophic calcification at the level of the trigone fibrocartilaginous complex. Note is also made of degenerative change within the thumb. 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 No definite acute fracture is appreciated. Dictated on workstation # [id number] Dict: 11/02/17 1823 Trans: 11/02/17 1833 [facility] [phone] Interpreted by: MARY KATE DOWNS MD Departure Communication (Admissions) Time/Spoke to Admitting Phy: 18:[address] Nye. Time/Spoke to Consulting Phy: 18:35 Communication/Consulting Dr. Pedraza Impression Impression: Primary Impression: Sepsis Qualified Codes: A41.9 - Sepsis, unspecified organism Additional Impressions: Urinary tract infection Qualified Codes: N39.0 - Urinary tract infection, site not specified; R31.9 - Hematuria, unspecified Cellulitis of right upper extremity Atrial fibrillation with RVR Pleural effusion, left Disposition: 09 ADMITTED INPATIENT Condition: Improved Admissions Decision to Admit Reason: Admit from ER (General) Decision to Admit/Date: Nov 02, 2017 Time/Decision to Admit Time: 16:35 Departure-Patient Inst. Referrals: SERGEI ROMAN MD (PCP/Family) Primary Care Physician KONRAD RUSS MD Nov 02, 2017 17:13
[2017-11-02 17:29] LABS: CLARITY,URINE SLIGHTLY CLOUDY; COLOR,URINE AMBER; GLUCOSE, URINE (UA) NEGATIVE (NEGATIVE); KETONES,URINE 1+ (NEGATIVE); LEUKOCYTE ESTERASE ,URINE 2+ (NEGATIVE); NITRITE,URINE POSITIVE (NEGATIVE); PH,URINE 6.5 (5-9); PROTEIN,URINE 3+ (NEGATIVE); UROBILINOGEN,URINE NORMAL (NORMAL)
[2017-11-02 17:29] LABS: BASOPHILS % (AUTO) 0 % (0-10); EOSINOPHILS # (AUTO) 0.1 10^3/uL (0.0-0.3); EOSINOPHILS % (AUTO) 0 % (0-10); HEMATOCRIT 35 % (35-52); HEMOGLOBIN 11.9 G/DL (11.5-16.0); LYMPHOCYTES # (AUTO) 1.4 X 10^3 (1.0-4.0); LYMPHOCYTES % (AUTO) 10 % (12-44); MEAN CORPUSCULAR HEMOGLOBIN 32 PG (25-34); MEAN CORPUSCULAR HGB CONC 34 G/DL (32-36); MEAN CORPUSCULAR VOLUME 95 FL (80-99); MEAN PLATELET VOLUME 9.1 FL (7.4-10.4); MONOCYTES % (AUTO) 7 % (0-12); NEUTROPHILS % (AUTO) 82 % (42-75); PLATELET COUNT 486 10^3/uL (130-400); RED BLOOD COUNT 3.67 10^6/uL (4.35-5.85); RED CELL DISTRIBUTION WIDTH 13.4 % (10.0-14.5); WHITE BLOOD COUNT 13.4 10^3/uL (4.3-11.0)
[2017-11-02 17:39] LABS: INR 1.6 (0.8-1.4); PROTHROMBIN TIME PATIENT 19.4 SEC (12.2-14.7)
[2017-11-02 17:44] LABS: AMORPHOUS SEDIMENT,UR RARE AMOR PHOSPHATE /LPF; BACTERIA,URINE FEW /HPF; BILIRUBIN,URINE 1+ (NEGATIVE); RBC,URINE 50-100 /HPF; SQUAMOUS EPITHELIAL CELL,UR >50 /HPF
[2017-11-02 17:49] LABS: ALBUMIN 3.2 GM/DL (3.2-4.5); BILIRUBIN,TOTAL 0.9 MG/DL (0.1-1.0); CALCIUM 9.2 MG/DL (8.5-10.1); CREATININE SERUM 1.04 MG/DL (0.60-1.30); POTASSIUM 4.4 MMOL/L (3.6-5.0); TOTAL PROTEIN 6.5 GM/DL (6.4-8.2); URIC ACID 4.4 MG/DL (2.6-7.2)
[2017-11-02 18:07] LABS: ERYTHROCYTE SEDIMENTATION RATE 22 MM/HR (0-30)
[2017-11-02] MEDS ORDERED: DILTIAZEM IV FOR DRIP 125 MG in D5W 100 ML IVPB 100 ML IV SCH (18:15)
[2017-11-02] MEDS ORDERED: cefTRIAXone INJECTION 1,000 MG in NS (IVPB) 50 ML IV ONE (18:15)
[2017-11-02] MEDS ORDERED: DILTIAZEM 25 MG/5 ML INJ (CARDIZEM) VIAL IVP ONE (18:15)
--- NOTE | 2017-11-02 18:33 | Diagnostic Imaging Report ---
INDICATION: Right wrist injury with swelling and erythema. EXAMINATION: AP, oblique and lateral views of the right wrist were obtained. FINDINGS: Old fracture deformity of the distal radial metaphysis with moderate dorsal angulation. There are prominent marginal spurs about the distal radius and ulna with narrowing of the radiocarpal joint space. Numerous subchondral cysts are present with dystrophic calcification at the level of the trigone fibrocartilaginous complex. Note is also made of degenerative change within the thumb. 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 No definite acute fracture is appreciated. Dictated by: Dictated on workstation # [id number]
--- NOTE | 2017-11-02 18:34 | Diagnostic Imaging Report ---
INDICATION: Chest pain. EXAMINATION: Portable upright view of the chest was obtained. COMPARISON: Study of 10/16/2017. FINDINGS: There has been an interval increase in left pleural fluid with subjacent atelectasis in the left base. No pneumothorax identified. There is no evidence of new consolidation. There is volume loss in the right upper lobe with pleural parenchymal densities again noted in the apices similar to previous exam. IMPRESSION: Chronic findings in the lungs with interval increase in mild to moderate left pleural fluid and subjacent atelectasis. No other significant change is identified. Dictated by: Dictated on workstation # [id number]
--- OUTSIDE RECORDS SUMMARY | 2017-11-02 19:36 | XMS REPORT | Clinical Summary ---
Author Author [facility] Organization [facility] Address Unknown Phone Unavailable Care Team Providers Care Retirement Manager Name Role Phone ChristineTea harding DO Unavailable Unavailable João Ruiz APRN Unavailable Source Comments Some departments are not documenting in the electronic medical record. If you do not see the information that you expected, contact Release of Information in the Health Information Management department at [phone] for further assistance in locating additional records.[facility] Allergies Active Allergy Reactions Severity Noted Date [...]
--- OUTSIDE RECORDS SUMMARY | 2017-11-02 19:41 | XMS REPORT | Continuity of Care Document ---
Author Author [facility] Organization [facility] Address Unknown Phone Unavailable Allergies Active Description Code Type Severity Reaction Onset Reported/Identified Relationship to Patient Clinical Status Yes Penicillins [id number] Drug Allergy Unknown N/A 10/31/2006 Yes sulfamethoxazole [id number] Drug Allergy Severe CHEST TIGHTNESS 03/15/2010 Yes trimethoprim [id number] Drug Allergy Severe CHEST TIGHTNESS 03/15/2010 Yes amiodarone [id number] Drug Allergy Moderate MADE HER COLD 04/12/2016 Yes clindamycin [id number] Drug Allergy Moderate HEARTBURN 04/12/2016 Yes dronedarone [id number] Drug Allergy Unknown N/A 04/12/2016 Yes hydrochlorothiazide [id number] Drug Allergy Unknown N/A 04/12/2016 Yes levofloxacin [id number] Drug Allergy Unknown CHEST TIGHTNESS 04/12/2016 Yes TETRACYLCLINE TETRACYLCLINE Unknown SEVERE HEARTBUR 04/12/2016 Yes metoprolol [id number] Drug Allergy Unknown N/A 04/18/2016 Yes Penicillins [id number] Drug Allergy Unknown RASH, HAS RECEI 04/18/2016 [...] SIDDIQUI MD Ot 414.01 CORONARY ATHEROSCLEROSIS OF [place] CORON 06/18/2013 VIJAY SIDDIQUI MD Ot 427.31 [...] R Ot V72.81 07/06/2015 ARTUR ESPARZA, VIJAY Covarruibas Ot 272.4 07/06/2015 ARTUR ESPARZA, VIJAY J [...] ESPARZA, VIJAY J Ot 414.00 07/15/2015 VIJAY ISDDIQUI MD J Ot 427.31 07/15/2015 MATILDA ROMAN [...] EXAMINATION 04/12/2016 SERGEI ROMAN MD, Ot V72.81 [id number]-MWK-[id number] CARDIOVASCULAR 04/12/2016 MALLORY BLAS MD, Ot T84.9XXA [facility] COMP OF INTERNAL ORTHOPEDIC PROSTH 04/12/2016 MALLORY [...] Ot I48.91 UNSPECIFIED ATRIAL FIBRILLATION 04/18/2016 SERGEI ORMAN MD R Ot 738.5 OTHER ACQ BACK DEFORMITY 04/18/2016 SERGEI ROMAN MD R Ot V72.63 PRE-PROCEDURAL LABORATORY EXAMINATION 04/18/2016 SERGEI ROMAN MD Ot V72.81 [id number]-[id number]-PLLLBGQIS CARDIOVASCULAR 04/18/2016 CK SANDOVAL Ot I25.10 ATHSCL HEART DISEASE OF [place] CORONARY 04/18/2016 CK SANDOVAL Ot I25.10 ATHSCL HEART DISEASE OF [place] CORONARY 04/18/2016 CK SANDOVAL Ot I25.10 ATHSCL HEART DISEASE OF [place] CORONARY 04/18/2016 CK SANDOVAL Ot I25.10 ATHSCL HEART DISEASE OF [place] CORONARY 04/18/2016 MALLORY BLAS MD Ot E78.0 PURE HYPERCHOLESTEROLEMIA 04/18/2016 MALLORY BLAS MD Ot F41.9 ANXIETY DISORDER, UNSPECIFIED 04/18/2016 MALLORY BLAS MD Ot I10 ESSENTIAL (PRIMARY) HYPERTENSION 04/18/2016 MALLORY BLAS MD Ot M81.0 AGE-RELATED OSTEOPOROSIS W/O CURRENT PAT 04/18/2016 MALLORY BLAS MD Ot T84.84XA PAIN DUE TO INTERNAL ORTHOPEDIC PROSTH D 04/18/2016 MALLORY BLAS MD Ot Z79.01 HALF-WAY (CURRENT) USE OF ANTICOAGULANT 04/18/2016 CK SANDOVAL Ot E78.2 MIXED HYPERLIPIDEMIA 04/18/2016 CK SANDOVAL K Ot I10 ESSENTIAL (PRIMARY) HYPERTENSION 04/18/2016 CK SANDOVAL Ot I25.10 ATHSCL HEART DISEASE OF [place] CORONARY 04/18/2016 CK SANDOVAL Ot I48.0 PAROXYSMAL ATRIAL FIBRILLATION 04/19/2016 CK SANDOVAL Ot E78.2 MIXED HYPERLIPIDEMIA 04/19/2016 CK SANDOVAL K Ot I10 ESSENTIAL (PRIMARY) HYPERTENSION 04/19/2016 CK SANDOVAL Ot I25.10 ATHSCL HEART DISEASE OF [place] CORONARY 04/19/2016 CK SANDOVAL K Ot I48.0 PAROXYSMAL ATRIAL FIBRILLATION 04/19/2016 CK SANDOVAL Ot E78.2 MIXED HYPERLIPIDEMIA 04/19/2016 CK SANDOVAL K Ot I10 ESSENTIAL (PRIMARY) HYPERTENSION 04/19/2016 CK SANDOVAL Ot I25.10 ATHSCL HEART DISEASE OF [place] CORONARY 04/19/2016 CK SANDOVAL Ot I48.0 PAROXYSMAL [...] D 04/19/2016 MALLORY BLAS MD, Ot Z79.01 HALF-WAY (CURRENT) USE OF ANTICOAGULANT 04/24/2016 MALLORY BLAS MD Ot E78.0 PURE HYPERCHOLESTEROLEMIA 04/24/2016 MALLORY BLAS MD Ot F41.9 ANXIETY DISORDER, UNSPECIFIED 04/24/2016 MALLORY BLAS MD, Ot I10 ESSENTIAL (PRIMARY) HYPERTENSION 04/24/2016 MALLORY BLAS MD, Ot M81.0 AGE-RELATED OSTEOPOROSIS W/O CURRENT PAT 04/24/2016 MALLORY BLAS MD, Ot T84.84XA PAIN DUE TO INTERNAL ORTHOPEDIC PROSTH D 04/24/2016 MALLORY BLAS MD, Ot Z79.01 HALF-WAY (CURRENT) USE OF ANTICOAGULANT 05/11/2016 CK SANDOVAL Ot E78.2 MIXED HYPERLIPIDEMIA 05/11/2016 CK SANDOVAL Ot I10 ESSENTIAL (PRIMARY) HYPERTENSION 05/11/2016 CK SANDOVAL Ot I25.10 ATHSCL HEART DISEASE OF [place] CORONARY 05/11/2016 CK SANDOVAL Ot I48.0 PAROXYSMAL ATRIAL FIBRILLATION 05/27/2016 HAYDER VERGARA Ot L03.115 CELLULITIS OF RIGHT LOWER LIMB 05/27/2016 HAYDER VERGARA Ot 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] 05/27/2016 HAYDER VERGARA Ot M79.9 SOFT TISSUE DISORDER, UNSPECIFIED 05/28/2016 CK SANDOVAL Ot E78.2 MIXED HYPERLIPIDEMIA 05/28/2016 CK SANDOVAL Ot I10 ESSENTIAL (PRIMARY) HYPERTENSION 05/28/2016 CK SANDOVAL Ot I25.10 ATHSCL HEART DISEASE OF [place] CORONARY 05/28/2016 CK SANDOVAL Ot I48.0 PAROXYSMAL [...] EXAMINATION 05/28/2016 SERGEI ROMAN MD Ot V72.81 [id number] CARDIOVASCULAR 05/28/2016 CK SANDOVAL Ot E78.2 MIXED HYPERLIPIDEMIA 05/28/2016 CK SANDOVAL Ot I10 ESSENTIAL (PRIMARY) HYPERTENSION 05/28/2016 CK SANDOVAL Ot I25.10 ATHSCL HEART DISEASE OF [place] CORONARY 05/28/2016 CK SANDOVAL Ot I48.0 PAROXYSMAL [...] EXAMINATION 07/03/2016 SERGEI ROMAN MD, Ot V72.81 CGVV-OLQ-VOYAZEZPN CARDIOVASCULAR 07/03/2016 CK SANDOVAL Ot E78.2 MIXED HYPERLIPIDEMIA 07/03/2016 CK SANDOVAL Ot I10 ESSENTIAL (PRIMARY) HYPERTENSION 07/03/2016 CK SANDOVAL Ot I25.10 ATHSCL HEART DISEASE OF [place] CORONARY 07/03/2016 CK SANDOVAL Ot I48.0 PAROXYSMAL [...] MD Ot 272.4 HYPERLIPIDEMIA NEC/NOS 07/26/2016 VIJAY SIDDIUQI MD Ot 401.9 HYPERTENSION NOS 07/26/2016 VIJAY [...] EXAMINATION 07/26/2016 SERGEI ROMAN MD, Ot V72.81 [id number]-ZSC-[id number] CARDIOVASCULAR 07/26/2016 CK SANDOVAL Ot E78.2 MIXED HYPERLIPIDEMIA 07/26/2016 CK SANDOVAL Ot I10 ESSENTIAL (PRIMARY) HYPERTENSION 07/26/2016 CK SANDOVAL Ot I25.10 ATHSCL HEART DISEASE OF [place] CORONARY 07/26/2016 CK SANDOVAL Ot I48.0 PAROXYSMAL [...] EXAMINATION 07/27/2016 SERGEI ROMAN MD Ot V72.81 SMKF-[id number] CARDIOVASCULAR 07/27/2016 CK SANDOVAL Ot E78.2 MIXED HYPERLIPIDEMIA 07/27/2016 CK SANDOVAL Ot I10 ESSENTIAL (PRIMARY) HYPERTENSION 07/27/2016 CK SANDOVAL Ot I25.10 ATHSCL HEART DISEASE OF [place] CORONARY 07/27/2016 CK SANDOVAL Ot I48.0 PAROXYSMAL [...] G90.523 COMPLEX REGIONAL PAIN SYNDROME I OF [facility] 01/29/2017 MALLORY SOLIS MD, Ot 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 01/29/2017 MALLORY SOLIS MD Ot I87.331 CHRONIC VENOUS HTN W ULCER AND INFLAMMAT 01/29/2017 MALLORY SOLIS MD, Ot L97.312 NON-PRS CHRONIC ULCER OF RIGHT ANKLE W F 01/30/2017 MALLORY SOLIS MD, Ot G90.523 COMPLEX REGIONAL PAIN SYNDROME I OF [facility] 01/30/2017 MALLORY SOLIS MD, Ot 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 01/30/2017 [...] EXAMINATION 04/24/2017 SERGEI ROMAN MD Ot V72.81 DMNF-VPN-VCZRWTBZV CARDIOVASCULAR 04/24/2017 CK SANDOVAL Ot E78.2 MIXED HYPERLIPIDEMIA 04/24/2017 CK SANDOVAL Ot I10 ESSENTIAL (PRIMARY) HYPERTENSION 04/24/2017 CK SANDOVAL Ot I25.10 ATHSCL HEART DISEASE OF [place] CORONARY 04/24/2017 CK SANDOVAL Ot I48.0 PAROXYSMAL [...] K Ot I25.10 ATHSCL HEART DISEASE OF [place] CORONARY 05/08/2017 CK SANDOVAL Ot I48.2 CHRONIC ATRIAL FIBRILLATION 05/29/2017 CK SANDOVAL Ot E78.2 MIXED HYPERLIPIDEMIA 05/29/2017 CK SANDOVAL K Ot I10 ESSENTIAL (PRIMARY) HYPERTENSION 05/29/2017 CK SANDOVAL Ot I25.10 ATHSCL HEART DISEASE OF [place] CORONARY 05/29/2017 CK SANDOVAL Ot I48.2 CHRONIC [...] EXAMINATION 05/29/2017 SERGEI ROMAN MD Ot V72.81 TLRI-HSP-GGHGWLDVX CARDIOVASCULAR 05/29/2017 SERGEI ROMAN MD Ot R94.5 [...] K Ot I25.10 ATHSCL HEART DISEASE OF [place] CORONARY 05/29/2017 BHAVANA GUPTA, CK K Ot I48.2 CHRONIC ATRIAL FIBRILLATION 06/05/2017 CK SANDOVAL Ot E78.2 MIXED HYPERLIPIDEMIA 06/05/2017 BHAVANA GUPTA CK K Ot I10 ESSENTIAL (PRIMARY) HYPERTENSION 06/05/2017 BHAVANA GUPTA, CK K Ot I25.10 ATHSCL HEART DISEASE OF [place] CORONARY 06/05/2017 JOSIE SANDOVALTH K Ot I48.2 CHRONIC ATRIAL FIBRILLATION 10/17/2017 MICKY DO DOLORES Ot F41.9 ANXIETY DISORDER, UNSPECIFIED 10/17/2017 MICKY DO DOLORES Ot G62.9 POLYNEUROPATHY, UNSPECIFIED 10/17/2017 MICKY DO DOLORES Ot I10 ESSENTIAL (PRIMARY) HYPERTENSION 10/17/2017 MICKY DO DOLROES Ot I48.91 UNSPECIFIED ATRIAL FIBRILLATION 10/17/2017 MICKY [...] DOLORES Ot I25.10 ATHSCL HEART DISEASE OF [place] CORONARY 10/19/2017 MICKY DO, DOLORES Ot I27.20 [...] SPECIF 10/20/2017 STEVIE HWANG MD Ot Z79.01 HALF-WAY (CURRENT) USE OF ANTICOAGULANT 10/20/2017 STEVIE HWANG [...] REGIONAL PAIN SYNDROME I, UNSPEC 10/20/2017 MICKY THOAMSON DOLORES Ot I08.0 RHEUMATIC DISORDERS OF BOTH MITRAL AND A 10/20/2017 MICKY THOMASON DOLORES Ot I10 ESSENTIAL (PRIMARY) HYPERTENSION 10/20/2017 MICKY THOMASON DOLORES Ot I25.10 ATHSCL HEART DISEASE OF [place] CORONARY 10/20/2017 MICKY THOMASON DOLORES Ot I27.20 [...] DOLORES Ot I25.10 ATHSCL HEART DISEASE OF [place] CORONARY 10/21/2017 MICKY THOMASON DOLORES Ot I27.20 PULMONARY HYPERTENSION, UNSPECIFIED 10/21/2017 MICKY THOMASON DOLORES Ot I48.2 CHRONIC ATRIAL FIBRILLATION 10/21/2017 MICKY THOMASON DOLORES Ot I65.23 OCCLUSION AND STENOSIS OF BILATERAL [place] 10/21/2017 MICKY THMOASON DOLORES Ot 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 10/21/2017 MICKY THOMASON [...] DOLORES Ot I25.10 ATHSCL HEART DISEASE OF [place] CORONARY 10/21/2017 MICKY THOMASON DOLORES Ot I27.20 PULMONARY HYPERTENSION, UNSPECIFIED 10/21/2017 MICKY THOMASON DOLORES Ot I48.2 CHRONIC ATRIAL FIBRILLATION 10/21/2017 MICKY THOMASON DOLORES Ot I65.23 OCCLUSION AND STENOSIS OF BILATERAL [place] 10/21/2017 MICKY THOMASON DOLORES Ot 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 10/21/2017 MICKY THOMASON DOLORES Ot K21.9 GASTRO-ESOPHAGEAL REFLUX DISEASE WITHOUT 10/21/2017 MICKY THOMASON DOLORES Ot K59.09 OTHER CONSTIPATION 10/21/2017 DOLOERS WEEKS DO Ot M25.519 PAIN IN UNSPECIFIED [...] DO Ot I25.10 ATHSCL HEART DISEASE OF [place] CORONARY 10/21/2017 DOLORES WEEKS DO Ot I27.20 [...] SPECIF 10/26/2017 STEVIE HWANG MD Ot 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 10/26/2017 STEVIE HWANG [...] FOR INFLUENZA A AND B ANTIGENS BY [facility] Complete blood count (CBC) with automated white [...] culture - 10/14/17 12:20 Bacterial urine culture [id number] NRG COLONY COUNT >100,000/ML NR FTX;REPORTABLE SENSITIVITY [...] culture - 10/16/17 22:40 Bacterial urine culture [id number] NRG COLONY COUNT >100,000/ML NR FTX;REPORTABLE SENSITIVITY [...] FOR INFLUENZA A AND B ANTIGENS BY [facility] Complete blood count (CBC) with automated white [...] Automated blood platelet mean volume measurement 8.9 [[facility]] 7.4-10.4 Automated blood neutrophils/100 leukocytes 55 % [...] plasma albumin measurement (mass/volume) 2.5 g/dL 3.2-4.5 Complete urinalysis with reflex to culture - 11/02/17 16:40 Urine color determination MONTRELL NRG Urine clarity determination SLIGHTLY CLOUDY NRG Urine pH measurement by test strip 6.5 5-9 Specific gravity of urine by test [...] NORMAL Urine leukocyte esterase detection by dipstick 2+ NEGATIVE Automated urine sediment erythrocyte count by microscopy (number/high power field) [HPF] NRG Automated urine sediment leukocyte count by microscopy (number/high power field ) [HPF] NRG Bacteria detection in urine sediment by light microscopy FEW NRG Squamous epithelial cells detection in urine sediment by light microscopy >50 NRG Crystals detection in urine sediment by light microscopy NONE NRG Casts detection in urine sediment by light microscopy NONE NRG Mucus detection in urine sediment by light microscopy NEGATIVE NRG Complete urinalysis with reflex to culture NO NRG Amorphous sediment detection in urine sediment by light microscopy RARE ADRI PHOSPHATE NRG Complete blood count (CBC) with automated white blood cell (WBC) differential - 11/02/17 17:17 Blood leukocytes automated count (number/volume) 13.4 10*3/uL 4.3-11.0 Blood erythrocytes automated count (number/volume) 3.67 10*6/uL 4.35-5.85 Venous blood hemoglobin measurement (mass/volume) 11.9 g/dL 11.5-16.0 Blood hematocrit (volume fraction) 35 % 35-52 Automated erythrocyte mean corpuscular volume 95 [[facility]] 80-99 Automated erythrocyte mean corpuscular hemoglobin (mass per erythrocyte) 32 pg 25-34 Automated erythrocyte mean corpuscular hemoglobin concentration measurement ( mass/volume) 34 g/dL 32-36 Automated erythrocyte distribution width ratio 13.4 % 10.0-14.5 Automated blood platelet count (count/volume) 486 10*3/uL 130-400 Automated blood platelet mean volume measurement 9.1 [foz_us] 7.4-10.4 Automated blood neutrophils/100 leukocytes 82 % 42-75 Automated blood lymphocytes/100 leukocytes 10 % 12-44 Blood monocytes/100 leukocytes 7 % 0-12 Automated blood eosinophils/100 leukocytes 0 % 0-10 Automated blood basophils/100 leukocytes 0 % 0-10 Blood neutrophils automated count (number/volume) 11.0 10*3 1.8-7.8 Blood lymphocytes automated count (number/volume) 1.4 10*3 1.0-4.0 Blood monocytes automated count (number/volume) 1.0 10*3 0.0-1.0 Automated eosinophil count 0.1 10*3/uL 0.0-0.3 Automated blood basophil count (count/volume) 0.0 10*3/uL 0.0-0.1 Blood lactic acid measurement (moles/volume) - 11/02/17 17:17 Blood lactic acid measurement (moles/volume) 1.04 mmol/L 0.50-2.00 PT panel in platelet poor plasma by coagulation assay - 11/02/17 17:17 Prothrombin time (PT) in platelet poor plasma by coagulation assay 19.4 s 12.2-14.7 INR in platelet poor plasma or blood by coagulation assay 1.6 0.8-1.4 Activated partial thromboplastin time (aPTT) in platelet poor plasma bycoagulation assay - 11/02/17 17:17 Activated partial thromboplastin time (aPTT) in platelet poor plasma bycoagulation assay 40 s 24-35 Comprehensive metabolic panel - 11/02/17 17:17 Serum or plasma sodium measurement (moles/volume) 133 mmol/L 135-145 Serum or plasma potassium measurement (moles/volume) 4.4 mmol/L 3.6-5.0 Serum or plasma chloride measurement (moles/volume) 99 mmol/L 98-107 Carbon dioxide 20 mmol/L 21-32 Serum or plasma anion gap determination (moles/volume) 14 mmol/L 5-14 Serum or plasma urea nitrogen measurement (mass/volume) 20 mg/dL 7-18 Serum or plasma creatinine measurement (mass/volume) 1.04 mg/dL 0.60-1.30 Serum or plasma urea nitrogen/creatinine mass ratio 19 NRG Serum or plasma creatinine measurement with calculation of estimated glomerular filtration rate 51 NRG Serum or plasma glucose measurement (mass/volume) 119 mg/dL 70-105 Serum or plasma calcium measurement (mass/volume) 9.2 mg/dL 8.5-10.1 Serum or plasma total bilirubin measurement (mass/volume) 0.9 mg/dL 0.1-1.0 Serum or plasma alkaline phosphatase measurement (enzymatic activity/volume) 176 U/L 40-136 Serum or plasma aspartate aminotransferase measurement (enzymatic activity/ volume) 23 U/L 5-34 Serum or plasma alanine aminotransferase measurement (enzymatic activity/volume ) 18 U/L 0-55 Serum or plasma protein measurement (mass/volume) 6.5 g/dL 6.4-8.2 Serum or plasma albumin measurement (mass/volume) 3.2 g/dL 3.2-4.5 Serum or plasma uric acid measurement (mass/volume) - 11/02/17 17:17 Serum or plasma uric acid measurement (mass/volume) 4.4 mg/dL 2.6-7.2 Serum or plasma creatine kinase measurement (enzymatic activity/volume) - 11/02 17:17 Serum or plasma creatine kinase measurement (enzymatic activity/volume) 32 U/L 29-168 Serum or plasma C reactive protein measurement (mass/volume) - 11/02/17 17:17 Serum or plasma C reactive protein measurement (mass/volume) 14.38 mg/dL 0.00-0.50 Influenza virus A and B antigen detection - 11/02/17 17:17 FLU RESULT NEGATIVE FOR INFLUENZA A AND B ANTIGENS BY IA NRG Erythrocyte sedimentation rate by westergren method - 11/02/17 17:17 Erythrocyte sedimentation rate by westergren method 22 mm 0-30 Encounters ACCT No. Visit Date/Time Discharge Status Pt. Type Provider Facility Loc./Unit Complaint [id number] 10/16/2017 17:08:00 10/21/2017 16:00:00 DIS Outpatient MICKY THOMASONFABIENI [facility] 4TH UTI,ACUTE RENAL FAILURE/ DEHYDRATION [id number] 10/14/2017 11:35:00 10/14/2017 13:31:00 DIS Outpatient STEVIE HWANG MD [facility] ER BODY PAINS,SOA [id number] 05/07/2017 13:24:00 05/07/2017 23:59:59 CLS Outpatient CK SANDOVAL [facility] CARD AFIB I48.2, CAD I25.10 [id number] 01/30/2017 13:56:00 01/30/2017 16:00:00 DIS Outpatient MALLORY SOLIS MD [facility] WOUNDCARE [id number] 12/04/2016 11:31:00 12/04/2016 16:00:00 DIS Outpatient MALLORY SOLIS MD [facility] WOUNDCARE [id number] 11/21/2016 13:22:00 11/21/2016 16:00:00 DIS Outpatient MALLORY SOLIS MD [facility] WOUNDCARE [id number] 07/26/2016 11:57:00 07/26/2016 23:59:59 CLS Outpatient SERGEI ROMAN MD [facility] CARD ELEVATED LIVER ENZYMES [id number] 07/17/2016 09:47:00 07/17/2016 23:59:59 CLS Outpatient SERGEI ROMAN MD [facility] RAD ELEVATED LIVER ENZYME [id number] 07/03/2016 13:49:00 07/03/2016 23:59:59 CLS Outpatient SERGEI ROMAN MD [facility] RAD ELEVATED LIVER ENZYMES [id number] 05/27/2016 18:57:00 05/27/2016 21:35:00 DIS Emergency HAYDER VERGARA [facility] ER R CALF REDNESS/PAIN [id number] 04/18/2016 09:30:00 04/18/2016 15:30:00 DIS Outpatient MALLORY BLAS MD [facility] SDC SYMPTOMATIC HARDWARE RIGHT ANKLE [id number] 04/17/2016 14:32:00 04/17/2016 23:59:59 CLS Outpatient CK SANDOVAL [facility] CARD CAD, HTN, HYPERLIPIDEMIA, PAF [id number] 04/12/2016 10:30:00 04/12/2016 11:52:00 DIS Outpatient MALLORY BLAS MD [facility] PREOP SYMPTOMATIC HARDWARE RIGHT ANKLE [id number] 01/28/2016 15:38:00 01/28/2016 17:09:00 DIS Emergency HAYDER VERGARA [facility] ER VAG DISCHARGE [id number] 09/02/2015 09:36:00 09/02/2015 23:59:59 CLS Outpatient VIJAY SIDDIQUI MD [facility] CARD CAD,HTN,HLP [id number] 07/12/2015 23:33:00 07/12/2015 23:59:59 CLS Emergency ROBERT CHILEL DO [facility] ER BACK PAIN [id number] 06/29/2015 14:12:00 06/29/2015 23:59:59 CLS Outpatient SERGEI ROMAN MD [facility] CARD FAILED BACK [id number] 06/09/2015 09:56:00 06/09/2015 23:59:59 CLS Outpatient VIJAY SIDDIQUI MD [facility] CARD CAD,HTN,HLP,PAF [id number] 02/20/2015 18:38:00 02/20/2015 20:43:00 DIS Emergency HAYDER VERGARA [facility] ER L SIDE ANN MARIE AREA PAIN [id number] 01/24/2015 15:17:00 01/24/2015 23:59:59 CLS Outpatient SERGEI ROMAN MD [facility] RAD RADICULOPLATHY [id number] 05/06/2014 13:34:00 05/06/2014 23:59:59 CLS Outpatient VIJAY SIDDIQUI MD [facility] CARD HLP,HTN,CAD [id number] 06/17/2013 11:26:00 06/18/2013 12:56:00 DIS Inpatient VIJAY SIDDIQUI MD [facility] CSD CHEST PAIN PALPITATIONS [id number] 11/02/2017 17:35:00 Document Registration [id number] 07/15/2015 12:43:00 Document Registration [id number] 11/08/2011 12:43:00 Document Registration [id number] 10/09/2011 13:33:00 Document Registration [id number] 03/14/2010 19:06:00 Document Registration
[2017-11-02] MEDS ORDERED: VANCOMYCIN 1 GM/NS 250 ML IVPB IV SCH ×2 (20:15)
[2017-11-02] MEDS ORDERED: APIXABAN 2.5 MG (ELIQUIS) TABLET PO SCH (21:00)
[2017-11-02] MEDS: DILTIAZEM DRIP 125 MG/D5W 100 ML TOTAL VOLUME 125 ML IV SCH ×2 (21:30)
[2017-11-02] MEDS: NS IV 1000 ML 1,000 ML IV SCH (21:30)
[2017-11-03] VITALS (24 sets, daily range): BP systolic 100–143; BP diastolic 65–100
[2017-11-03] MEDS: MEROPENEM 500 MG/D5W 100 ML IVPB IV SCH ×8 (00:48→17:40)
[2017-11-03] MEDS: DILTIAZEM DRIP 125 MG/D5W 100 ML TOTAL VOLUME 125 ML IV SCH ×2 (01:33)
[2017-11-03 04:51] LABS: BASOPHILS # (AUTO) 0.1 10^3/uL (0.0-0.1); BASOPHILS % (AUTO) 1 % (0-10); EOSINOPHILS # (AUTO) 0.3 10^3/uL (0.0-0.3); EOSINOPHILS % (AUTO) 4 % (0-10); HEMATOCRIT 32 % (35-52); HEMOGLOBIN 10.6 G/DL (11.5-16.0); LYMPHOCYTES # (AUTO) 1.7 X 10^3 (1.0-4.0); LYMPHOCYTES % (AUTO) 21 % (12-44); MEAN CORPUSCULAR HEMOGLOBIN 33 PG (25-34); MEAN CORPUSCULAR HGB CONC 34 G/DL (32-36); MEAN CORPUSCULAR VOLUME 97 FL (80-99); MEAN PLATELET VOLUME 9.2 FL (7.4-10.4); MONOCYTES # (AUTO) 1.2 X 10^3 (0.0-1.0); MONOCYTES % (AUTO) 15 % (0-12); NEUTROPHILS # (AUTO) 4.8 X 10^3 (1.8-7.8); NEUTROPHILS % (AUTO) 59 % (42-75); PLATELET COUNT 414 10^3/uL (130-400); RED BLOOD COUNT 3.26 10^6/uL (4.35-5.85); RED CELL DISTRIBUTION WIDTH 13.2 % (10.0-14.5)
[2017-11-03 05:06] LABS: BUN/CREATININE RATIO 19; CALCIUM 8.6 MG/DL (8.5-10.1); CARBON DIOXIDE 19 MMOL/L (21-32); CHLORIDE 108 MMOL/L (98-107); CREATININE SERUM 0.83 MG/DL (0.60-1.30); GFR ESTIMATED > 60; GLUCOSE 94 MG/DL (70-105); MAGNESIUM 2.1 MG/DL (1.8-2.4); PHOSPHORUS 3.1 MG/DL (2.3-4.7); POTASSIUM 3.6 MMOL/L (3.6-5.0); SODIUM 136 MMOL/L (135-145)
--- NOTE | 2017-11-03 07:06 | Pulmonary Consultation ---
History of Present Illness History of Present Illness Date of Consultation 11/03/17 07:00 Time Seen by Provider: 08:06 Date of Admission History of Present Illness 82yo with hx of Afib on Coumadin therapy presented to ED from [facility] with fever and confusion. SHe was found to have Afib RVR and left sided pleural effusion. She was placed on a cardizem gtt. Pt is currently confused she is a DNR. Cardiology is following. I am consulted for pulmonary management. Allergies and Home Medications Allergies Coded Allergies: levofloxacin (Unverified Allergy, Severe, CHEST TIGHTNESS, 11/05/17) sulfamethoxazole (Verified Allergy, Severe, CHEST TIGHTNESS, 03/15/10) trimethoprim (Verified Allergy, Severe, CHEST TIGHTNESS, 03/15/10) Penicillins (Verified Allergy, Unknown, RASH, HAS RECEIVED ANCEF W/O PROBLEM, 04/18/16) dronedarone (Verified Allergy, Unknown, 04/12/16) hydrochlorothiazide (Verified Allergy, Unknown, 04/12/16) metoprolol (Unverified Allergy, Unknown, 04/18/16) Tetracyclines (Verified Adverse Reaction, Intermediate, SEVERE HEARTBURN, 11/05/17) Severe Heartburn amiodarone (Verified Adverse Reaction, Intermediate, MADE HER COLD, 11/05/17 ) clindamycin (Verified Adverse Reaction, Mild, HEARTBURN, 11/05/17) Home Medications Apixaban 2.5 Mg Tablet, 2.5 MG PO BID, (Reported) Calcium Carbonate 500 Mg Tab.chew, 500 MG PO DAILY, (Reported) Calcium Citrate/Vitamin D3 1 Each Tablet, 1 TAB PO 1300, (Reported) Cholecalciferol (Vitamin D3) 2,000 Unit Capsule, 2,000 UNIT PO DAILY, (Reported) Diltiazem HCl 120 Mg Tab.er.24h, 120 MG PO HS, (Reported) Estradiol 42.5 Gm Cream.appl, TP HS, (Reported) Fish Oil/Dha/Epa 1 Each Capsule, 1,200 MG PO TID, (Reported) Fluticasone Propionate 9.9 Ml [place].susp, 1 SPRAY NSEACH DAILY PRN for ALLERGIES , (Reported) Gabapentin 100 Mg Capsule, 100 MG PO TID, (Reported) Ketotifen Fumarate 5 Ml Drops, 1 DROP OU DAILY PRN for ALLERGIES, (Reported) Lactobacillus Combination No.4 1 Each Capsule, 1 CAP PO DAILY, (Reported) Magnesium Oxide 250 Mg Tablet, 250 MG PO DAILY, (Reported) Methadone HCl 10 Mg Tablet, 5 MG PO DAILY PRN for FOOT PAIN, (Reported) Multivits-Min/Iron/FA/Lutein 1 Each Tablet, 1 TAB PO DAILY, (Reported) Naproxen Sodium 220 Mg Capsule, 440 MG PO DAILY PRN for PAIN-MILD, (Reported) Pitavastatin Calcium 2 Mg Tablet, 2 MG PO HS, (Reported) TAKES 1/2 (4 MG) TABLET Potassium Gluconate 99 Mg Tablet, 99 MG PO HS, (Reported) Sodium Fluoride 51 Gm Cream..g., DT HS, (Reported) Triazolam 0.25 Mg Tablet, 0.25 MG PO HS, (Reported) Past Zixnbxf-Vwvxxe-Hsdbyh Hx Patient Social History Alcohol Use: Denies Use Number of Drinks Today: II Alcohol Beverage of Choice: Other Recreational Drug Use: No Smoking Status: Never a Smoker 2nd Hand Smoke Exposure: No Recent Foreign Travel: No Contact w/Someone Who Travel: No Recent Infectious Disease Expo: No Recent Hopitalizations: No Immunizations Up To Date Tetanus Booster (TDap): Unknown Date of Pneumonia Vaccine: May 31, 2009 Date of Influenza Vaccine: Oct 17, 2017 Seasonal Allergies Seasonal Allergies: No Surgeries History of Surgeries: Yes (APPY-1963, "STIMULATOR" IN BACK, RIGHT ANKLE SURGERY ) Surgeries: Appendectomy, Hysterectomy, Neurological, Orthopedic Respiratory History of Respiratory Disorde: Yes (WHOOPING COUGH AT AGE 6YRS.) Cardiovascular History of Cardiac Disorders: Yes (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) Cardiac Disorders: Atrial Fibrillation, Hypertension Neurological History of Neurological Disord: Yes (NEUROPATHY ALL OVER, 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) Neurological Disorders: Neuropathy Reproductive System : No Hx Reproductive Disorders: No HIV/AIDS: 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 Genitourinary History of Genitourinary Disor: Yes Genitourinary Disorders: UTI-Chronic Gastrointestinal History of Gastrointestinal Di: Yes Gastrointestinal Disorders: Gastroesophageal Reflux, Chronic Constipation Musculoskeletal History of Musculoskeletal Dis: Yes (CHRONIC NECK PAIN, LUMBAR RADICULOPATHY) Musculoskeletal Disorders: Chronic Back Pain Endocrine History of Endocrine Disorders: No HEENT History of HEENT Disorders: No Loss of Vision: Bilateral Cancer History of Cancer: No Psychosocial History of Psychiatric Problem: Yes Behavioral Health Disorders: Anxiety Integumentary History of Skin or Integumenta: No Blood Transfusions History of Blood Disorders: No Adverse Reaction to a Blood Tr: No (N/A) Family Medical History Significant Family History: No Pertinent Family Hx Review of Systems Time Seen by Provider: 08:08 Constitutional: Fever, Sweats, Weakness, Malaise ENT: Nose congestion, No: Ear pain, Ear discharge, Nose pain, Nose discharge, Mouth pain, Mouth swelling, Throat pain, Throat swelling, Other Respiratory: Cough, Shortness of breath, Wheezing Cardiovascular: Chest Pain, Palpitations, Orthopnea, Paroxysmal Noc. Dyspnea, Edema, Lt Headedness Gastrointestinal: No: Nausea, Vomiting, Abdominal Pain, Diarrhea, Constipation , Melena, Hematochezia, Other Neurological: Weakness, Confusion Exam Exam Vital Signs Date Time Temp Pulse Resp B/P (MAP) Pulse Ox O2 Delivery O2 Flow Rate FiO2 11/03/17 06:00 92 29 143/93 (110) 98 Nasal Cannula 2.00 11/03/17 05:00 70 20 138/100 (113) 100 Nasal Cannula 2.00 11/03/17 04:00 96.3 79 17 127/89 (102) 100 Nasal Cannula 2.00 11/03/17 04:00 96 Nasal Cannula 2.00 11/03/17 03:00 70 17 125/79 (94) 97 Nasal Cannula 2.00 11/03/17 02:00 66 18 116/67 (83) 97 Nasal Cannula 2.00 11/03/17 01:33 97.6 72 17 116/81 91 Room Air 11/03/17 01:11 72 17 97 Nasal Cannula 2.00 11/03/17 01:00 62 11/03/17 01:00 62 21 100/86 (91) 92 Room Air 11/03/17 00:00 94 Nasal Cannula 2.00 11/03/17 00:00 97.6 72 17 116/81 (93) 91 Room Air 11/02/17 23:00 96 18 131/90 (104) 95 Room Air 11/02/17 22:00 82 17 110/69 (83) 92 Room Air 11/02/17 21:00 87 19 101/67 (78) 90 Room Air 11/02/17 20:45 91 19 124/75 (91) 91 Room Air 11/02/17 20:30 105 17 122/82 (95) 93 Room Air 11/02/17 20:15 105 12 137/90 (106) 93 Room Air 11/02/17 20:00 129 32 93 Room Air 11/02/17 20:00 98 Room Air 11/02/17 19:54 98.9 122 21 144/102 (116) 95 Room Air 11/02/17 19:54 122 11/02/17 19:13 100.3 110 18 143/129 97 11/02/17 17:21 100.3 11/02/17 16:30 100.3 110 18 143/129 (134) 97 Room Air I & O 11/03/17 07:00 Intake Total 250 ml Balance 250 ml General Appearance: WD/WN, Mild Distress, Thin HEENT: PERRL/EOMI, Normal ENT Inspection Neck: Normal Inspection Respiratory: Lungs Clear, Normal Breath Sounds, No Accessory Muscle Use, No Respiratory Distress Cardiovascular: No Edema, No Murmur, Irregularly Irregular Capillary Refill: Less Than 3 Seconds Gastrointestinal: normal bowel sounds, non tender, soft, no organomegaly Extremity: Normal Capillary Refill, Pedal Edema, Swelling, Other (chronic swelling and erythema of the lower extremities bilaterally. Right wrist is tender, swollen, hot, and erythematous. 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 Will see how pt is doing tomorrow. -Change Eliquis to Heparin gtt for possible thoracentesis tomorrow. -Check BNP Hx of Afib RVR -currently on cardizem 255 Clinical Quality Measures DVT/VTE Risk/Contraindication: Risk Factor Score Per Nursin RFS Level Per Nursing on Admit: 4+=Very High SHITAL HUDSON DO Nov 03, 2017 07:06
[2017-11-03] MEDS ORDERED: morphine INJ 4 MG/ML 1 ML (VIAL/SYRINGE) ONE (07:10)
[2017-11-03] MEDS: morphine INJ 4 MG/ML 1 ML (VIAL/SYRINGE) IVP PRN ×3 (07:13→20:03)
[2017-11-03] MEDS: NS IV 1000 ML 1,000 ML IV SCH ×3 (07:14→17:40)
[2017-11-03 08:09] LABS: INR 1.8 (0.8-1.4); PROTHROMBIN TIME PATIENT 20.6 SEC (12.2-14.7)
[2017-11-03] MEDS: LIDOCAINE (LIDODERM) 5% PATCH TOP SCH (08:35)
[2017-11-03] MEDS: VANCOMYCIN 1 GM/NS 250 ML IVPB IV SCH ×4 (08:35→21:54)
[2017-11-03] MEDS: HEParin DRIP 25000 UNIT/500ML 500 ML IV SCH (08:41)
--- NOTE | 2017-11-03 10:20 | Diagnostic Imaging Report ---
INDICATION: Sepsis. COMPARISON: 11/02/2017. FINDINGS: There is interval development of left perihilar bandlike consolidations. Stable small left pleural effusion and left basilar pulmonary opacities. Right lung remains clear. Stable cardiomegaly. IMPRESSION: 1. Development of left perihilar atelectasis. 2. No change in small left pleural effusion and associated left basilar pulmonary opacities. Dictated by: Dictated on workstation # [id number]
[2017-11-03] MEDS: DILTIAZEM 120 MG (CARDIZEM CD) CAP PO SCH (12:15)
[2017-11-03] MEDS ORDERED: CHOL20003 PO (12:55)
[2017-11-03] MEDS ORDERED: MULT-1021 PO (12:55)
[2017-11-03] MEDS ORDERED: CALC-696 PO (12:55)
[2017-11-03] MEDS ORDERED: APIX2.5T PO (12:55)
--- NOTE | 2017-11-03 13:41 | Consultation-Cardiology ---
HPI-Cardiology Cardiology Consultation: Date of Consultation 11/03/17 Date of Admission Attending Physician Tatiana Nye DO Admitting Physician Benny Reddy MD Consulting Physician Pablo PEDRAZA MD HPI: Time Seen by Provider: 13:00 Chief Complaint: Fever, atrial fibrillation This is a pleasant 82-year-old lady who sees Dr. Lilly as an outpatient for cardiology. She has history of atrial fibrillation on oral anticoagulation. She was recently to the hospital for confusion and UTI. She presents with fever musculoskeletal pain and was found to have atrial fibrillation with rapid ventricular rate. The patient complains of significant chest pain on breathing. Patient denies any syncope or near syncope. Review of Systems-Cardiology Review of Systems Constitutional: fever Eyes: No As described under HPI, No no symptoms reported, No blindness, No blurred vision, No contact lenses, No drainage, No decreased acuity, No foreign body sensation, No glasses, No inflammation, No pain, No photophobia, No previous injury, No shadows, No tunnel vision, No other, No vision change Ears/Nose/Throat: No As described under HPI, No no symptoms reported, No chronic hearing loss, No epistaxis, No ear discharge, No ear pain, No loose teeth, No mouth pain, No mouth swelling, No nasal drainage, No nose pain, No recent hearing loss, No throat pain, No throat swelling, No ulcerations, No other Respiratory: No no symptoms reported, No As described under HPI, No cough, No orthopnea, No shortness of breath, No SOB with excertion, No SOB at rest, No stridor, No wheezing, No other Cardiovascular: irregular heart rate, palpitations Gastrointestinal: No no symptoms reported, No As described under HPI, No abdomen distended, No abdominal pain, No blood streaked bowels, No constipation , No diarrhea, No difficulty swallowing, No nausea, No poor appetite, No poor fluid intake, No rectal bleeding, No vomiting, No other, No nausea/vomiting/ diarrhea, No stool coloration changes Genitourinary: No no symptoms reported, No As described under HPI, No burning, No dysuria, No discharge, No frequency, No flank pain, No hematuria, No incontinence, No pain, No urgency, No other, No urine frequency changes, No urine coloration changes : No Musculoskeletal: No no symptoms reported, No As describe under HPI, No back pain, No gout, No joint pain, No joint swelling, No muscle pain, No muscle stiffness, No neck pain, No other Skin: No no symptoms reported, No As described under HPI, No change in color, No change in hair/nails, No dryness, No lesions, No lumps, No rash, No other, No skin related problems, No ulcerations, No rash on exposed areas, No ulcerations on exposed areas Psychiatric/Neurological: No no symptoms reported, No As described under HPI, No anxiety, No depression, No emotional problems, No headache, No numbness, No pre-existing deficit, No seizure, No tingling, No tremors, No weakness, No other , No focal weakness, No syncope Hematologic: No no symptoms reported, No As described under HPI, No anemia, No blood clots, No easy bleeding, No easy bruising, No swollen glands, No other, No bleeding abnormalities PDL-[id number] Hx Patient Social History Alcohol Use: Denies Use Recreational Drug Use: No Smoking Status: Never a Smoker 2nd Hand Smoke Exposure: No Recent Foreign Travel: No Recent Infectious Disease Expo: No Hospitalization with Isolation: Denies Physical Abuse Screen: No Sexual Abuse: No Immunizations Up To Date Tetanus Booster (TDap): Unknown Date of Pneumonia Vaccine: May 31, 2009 Date of Influenza Vaccine: Oct 17, 2017 Past Medical History PMH As described under Assessment. Allergies and Home Medications Allergies Coded Allergies: sulfamethoxazole (Verified Allergy, Severe, CHEST TIGHTNESS, 03/15/10) trimethoprim (Verified Allergy, Severe, CHEST TIGHTNESS, 03/15/10) amiodarone (Verified Allergy, Intermediate, MADE HER COLD, 04/12/16) clindamycin (Verified Allergy, Intermediate, HEARTBURN, 04/12/16) Penicillins (Verified Allergy, Unknown, RASH, HAS RECEIVED ANCEF W/O PROBLEM, 04/18/16) dronedarone (Verified Allergy, Unknown, 04/12/16) hydrochlorothiazide (Verified Allergy, Unknown, 04/12/16) metoprolol (Unverified Allergy, Unknown, 04/18/16) levofloxacin (Unverified Adverse Reaction, Unknown, CHEST TIGHTNESS, ) Uncoded Allergies: TETRACYLCLINE (Adverse Reaction, Unknown, SEVERE HEARTBURN, 04/12/16) Home Medications Apixaban 2.5 Mg Tablet, 2.5 MG PO BID, (Reported) Calcium Carbonate 500 Mg Tab.chew, 500 MG PO DAILY, (Reported) Calcium Citrate/Vitamin D3 1 Each Tablet, 1 TAB PO 1300, (Reported) Cholecalciferol (Vitamin D3) 2,000 Unit Capsule, 2,000 UNIT PO DAILY, (Reported) Diltiazem HCl 120 Mg Tab.er.24h, 120 MG PO HS, (Reported) Estradiol 42.5 Gm Cream.appl, TP HS, (Reported) Fish Oil/Dha/Epa 1 Each Capsule, 1,200 MG PO TID, (Reported) Fluticasone Propionate 9.9 Ml [place].susp, 1 SPRAY NSEACH DAILY PRN for ALLERGIES , (Reported) Gabapentin 100 Mg Capsule, 100 MG PO TID, (Reported) Ketotifen Fumarate 5 Ml Drops, 1 DROP OU DAILY PRN for ALLERGIES, (Reported) Lactobacillus Combination No.4 1 Each Capsule, 1 CAP PO DAILY, (Reported) Magnesium Oxide 250 Mg Tablet, 250 MG PO DAILY, (Reported) Methadone HCl 10 Mg Tablet, 5 MG PO DAILY PRN for FOOT PAIN, (Reported) Multivits-Min/Iron/FA/Lutein 1 Each Tablet, 1 TAB PO DAILY, (Reported) Naproxen Sodium 220 Mg Capsule, 440 MG PO DAILY PRN for PAIN-MILD, (Reported) Pitavastatin Calcium 2 Mg Tablet, 2 MG PO HS, (Reported) TAKES 1/2 (4 MG) TABLET Potassium Gluconate 99 Mg Tablet, 99 MG PO HS, (Reported) Sodium Fluoride 51 Gm Cream..g., DT HS, (Reported) Triazolam 0.25 Mg Tablet, 0.25 MG PO HS, (Reported) Physical Exam-Cardiology Physical Exam Vital Signs/I&O Vital Sign - Last 12Hours 11/03/17 11/03/17 11/03/17 11/03/17 02:00 03:00 04:00 04:00 Temp 96.3 Pulse 66 70 79 Resp 18 17 17 B/P (MAP) 116/67 (83) 125/79 (94) 127/89 (102) Pulse Ox 97 97 96 100 O2 Delivery Nasal Cannula Nasal Cannula Nasal Cannula Nasal Cannula O2 Flow Rate 2.00 2.00 2.00 2.00 11/03/17 11/03/17 11/03/17 11/03/17 05:00 06:00 07:00 07:00 Pulse 70 92 109 109 Resp 20 29 30 B/P (MAP) 138/100 (113) 143/93 (110) 137/86 (103) Pulse Ox 100 98 96 O2 Delivery Nasal Cannula Nasal Cannula Nasal Cannula O2 Flow Rate 2.00 2.00 2.00 11/03/17 11/03/17 11/03/17 11/03/17 08:00 08:00 09:00 09:47 Pulse 84 105 Resp 15 27 B/P (MAP) 131/85 (100) 138/96 (110) Pulse Ox 96 96 90 O2 Delivery Nasal Cannula Nasal Cannula Nasal Cannula Nasal Cannula O2 Flow Rate 2.00 2.00 2.00 1.50 11/03/17 12:00 Pulse Ox 96 O2 Delivery Nasal Cannula O2 Flow Rate 2.00 Intake and Output 11/03/17 00:00 Intake Total 150 ml Balance 150 ml Capillary Refill : Less Than 3 Seconds Constitutional: appears stated age, AAO x 3, PERRL HEENT: PERRL, No discharge, hearing is well preserved, oral hygience is good, No ulceration, No xanthelasmas are seen Neck: No carotid bruit, carotid pulses are 2 + bilaterally Respiratory: lungs clear to percussion, lungs clear to auscultation Cardiovascular: irregularly irregular, tachycardia, S1 and S2 Gastrointestinal: No tender, No soft, No round, No distended, No pulsatile mass , No organomegaly, No guarding, No rebound, No tenderness, No hernia, No mass, No audible bowel sounds, No abnormal bowel sounds, No abdominal bruits, No spleenomegaly, No other Rectal: deferred Genital/Rectal: No normal genital exam, No normal rectal exam, No heme negative stool, No normal rectal tone, No normal vaginal exam, No blood at urethral meatus, No decreased rectal tone, No heme positive stool, No tenderness , No other Extremities: No normal range of motion, No non-tender, No normal inspection, No pedal edema, No calf tenderness, No normal capillary refill, No pelvis stable , No calf tenderness, No inflammation, No pedal edema, No slow capillary refill , No swelling, No other, No abrasion, No clubbing, No cyanosis, No ecchymosis, No laceration, No no lower extremity edema bilateral, No significant edema, No tenderness, No wound Neurologic/Psychiatric: No pinmaker II-XII nml as tested, No no motor/sensory deficits, No alert, No normal mood/affect, No oriented x 3, No abnormal cerebellar tests, No abnormal pinmaker II-XII, No abnormal gait, No aphasia, No EOM palsy, No facial droop, No motor weakness, No sensory deficit, No depressed affect, No disoriented x 3, No other, No grossly intact, No power is 5/5 both on sides Skin: No normal color, No warm/dry, No cyanosis, No cool, No diaphoresis, No damp, No ecchymosis, No jaundice, No mottled, No pallor, No rash, No tattoos/ piercings, No ulcerations, No rash on exposed areas, No ulcerations on exposed areas, No other Data Review Labs Laboratory Tests 11/02/17 16:40: Urine Color AMBERH, Urine Clarity SLIGHTLY CLOUDY, Urine pH 6.5, Urine Specific [place] 1.010L, Urine Protein 3+H, Urine Glucose (UA) NEGATIVE, Urine Ketones 1+ H, Urine Nitrite POSITIVEH, Urine Bilirubin 1+H, Urine Urobilinogen NORMAL, Urine Leukocyte Esterase 2+H, Urine RBC (Auto) 5+H, Urine RBC 50-100H, Urine WBC 5-10H, Urine Squamous Epithelial Cells >50H, Urine Crystals NONE, Urine Amorphous Sediment RARE ADRI PHOSPHATEH, Urine Bacteria FEWH, Urine Casts NONE, Urine Mucus NEGATIVE, Urine Culture Indicated NO 11/02/17 17:17: White Blood Count 13.4H, Red Blood Count 3.67L, Hemoglobin 11.9, Hematocrit 35, Mean Corpuscular Volume 95, Mean Corpuscular Hemoglobin 32, Mean Corpuscular Hemoglobin Concent 34, Red Cell Distribution Width 13.4, Platelet Count 486H, Mean Platelet Volume 9.1, Neutrophils (%) (Auto) 82H, Lymphocytes (%) (Auto) 10L , Monocytes (%) (Auto) 7, Eosinophils (%) (Auto) 0, Basophils (%) (Auto) 0, Neutrophils # (Auto) 11.0H, Lymphocytes # (Auto) 1.4, Monocytes # (Auto) 1.0, Eosinophils # (Auto) 0.1, Basophils # (Auto) 0.0, Erythrocyte Sedimentation Rate 22, Prothrombin Time 19.4H, INR Comment 1.6H, Activated Partial Thromboplast Time 40H, Sodium Level 133L, Potassium Level 4.4, Chloride Level 99 , Carbon Dioxide Level 20L, Anion Gap 14, Blood Urea Nitrogen 20H, Creatinine 1.04, Estimat Glomerular Filtration Rate 51, BUN/Creatinine Ratio 19, Glucose Level 119H, Lactic Acid Level 1.04, Uric Acid 4.4, Calcium Level 9.2, Total Bilirubin 0.9, Aspartate Amino Transf (AST/SGOT) 23, Alanine Aminotransferase ( ALT/SGPT) 18, Alkaline Phosphatase 176H, Total Creatine Kinase 32, C-Reactive Protein High Sensitivity 14.38H, Total Protein 6.5, Albumin 3.2 11/03/17 03:54: White Blood Count 8.0, Red Blood Count 3.26L, Hemoglobin 10.6L, Hematocrit 32L, Mean Corpuscular Volume 97, Mean Corpuscular Hemoglobin 33, Mean Corpuscular Hemoglobin Concent 34, Red Cell Distribution Width 13.2, Platelet Count 414H, Mean Platelet Volume 9.2, Neutrophils (%) (Auto) 59, Lymphocytes (%) (Auto) 21, Monocytes (%) (Auto) 15H, Eosinophils (%) (Auto) 4, Basophils (%) (Auto) 1, Neutrophils # (Auto) 4.8, Lymphocytes # (Auto) 1.7, Monocytes # (Auto) 1.2H, Eosinophils # (Auto) 0.3, Basophils # (Auto) 0.1, Prothrombin Time 20.6H, INR Comment 1.8H, Activated Partial Thromboplast Time 44H, Sodium Level 136, Potassium Level 3.6, Chloride Level 108H, Carbon Dioxide Level 19L, Anion Gap 9 , Blood Urea Nitrogen 16, Creatinine 0.83, Estimat Glomerular Filtration Rate > 60, BUN/Creatinine Ratio 19, Glucose Level 94, Calcium Level 8.6, Phosphorus Level 3.1, Magnesium Level 2.1, Troponin I < 0.30 11/03/17 12:45: Activated Partial Thromboplast Time 75H, Troponin I < 0.30 Microbiology 11/02/17 Influenza Types A,B Antigen (JIMBO) - Final, Complete ECG Impression ECG Initial ECG Impression: Atrial Fibrillation w/RVR A/P-Cardiology Assessment/Admission Diagnosis Sepsis, Atrial fibrillation with rapid ventricular rate, Pleural effusion, Hyponatremia ckd Urinary tract infection Plan Dr. Lilly to take over cardiology care tomorrow. Sepsis: Deferred to primary team. Chest pain likely pleuritic in nature. Acute coronary syndrome ruled out with serial negative troponin. Defer to Dr. Malhotra. ckd: New to monitor. Back pain and shoulder pain, on pain meds Mild nonobstructive coronary artery disease, cardiac catheterization was done in 2009. Continue to monitor. No changes are recommended. Permanent atrial fibrillation, presents with rapid ventricular rate. Started on IV Cardizem. We'll transition to by mouth Cardizem. [id number] score is 4 , yearly risk of stroke without oral anticoagulation is 4 percent, has history of intolerance to amiodarone or Multaq. On Eliquis. Eliquis held and started on IV heparin for pleural tap by Dr malhotra. Valvular heart disease with Severe mitral regurgitation noted on echocardiogram on June 09, 2015, repeat 2-D echocardiogram March 2016 revealed mild MR, moderate AR. Repeat echocardiogram. Pulmonary hypertension, most recent 2-D echocardiogram done March 2016 revealed PA pressure 30 mmHg. Continue to monitor. Hypertension, controlled. Monitor blood pressure. Hyperlipidemia, controlled. Maintained on Zocor 10 mg daily. Unable to increased Zocor due to interaction with diltiazem. Lipids are well controlled. Lipid/LFTs due again in 6 months. Mild bilateral nonobstructive carotid artery stenosis, last carotid ultrasound was done in August 2016. Continue to monitor. Anxiety Erythromelalgia, with reflex sympathetic dystrophy. Patient has been seen by Dr. Jama Fernandes in [place]. Peripheral neuropathy, patient is status post spinal stimulator. Thank you for your consultation. Please call me if you have any questions. Letty Pedraza MD, FACP, FACC, FSCAI, FHRS, CCDS Interventional Cardiology Cardiac Electrophysiology Vascular Medicine and Endovascular Interventions Clinical Quality Measures DVT/VTE Risk/Contraindication: Risk Factor Score Per Nursin RFS Level Per Nursing on Admit: 4+=Very High Pablo PEDRAZA MD Nov 03, 2017 1:41 pm
--- NOTE | 2017-11-03 13:43 | History & Physical-Hospitalist ---
HPI History of Present Illness: HPI/Chief Complaint CC: Sepsis with AF w/RVR HPI: This is an 82-year-old white female known to me from prior hospitalist service admission due to supratherapeutic INR of 9 requiring vitamin K administration without bleeding sequela and UTI who [facility] who presented to the ER with fever and confusion. She was found to have atrial fibrillation with rapid ventricular response, left- sided pleural effusion superimposed with infiltrate and leukocytosis with sepsis. She was subsequently placed on Cardizem drip of which she had weaned off within placed again on the infusion due to return of rapid ventricular response. Patient is confused does not recall who I am and obvious cognitive decline and she maintains DO NOT RESUSCITATE status. Source: patient Exam Limitations: no limitations Date Seen 11/03/17 Time Seen by Provider: 12:30 Attending Physician Tatiana Nye Floyd R MD Referring Physician Date of Admission Nov 02, 2017 at 18:39 Home Medications & Allergies Home Medications Reviewed patient Home Medication Reconciliation Form Allergies Allergies Coded Allergies sulfamethoxazole (Verified Allergy, Severe, CHEST TIGHTNESS, 03/15/10) trimethoprim (Verified Allergy, Severe, CHEST TIGHTNESS, 03/15/10) amiodarone (Verified Allergy, Intermediate, MADE HER COLD, 04/12/16) clindamycin (Verified Allergy, Intermediate, HEARTBURN, 04/12/16) Penicillins (Verified Allergy, Unknown, RASH, HAS RECEIVED ANCEF W/O PROBLEM, 04/18/16) dronedarone (Verified Allergy, Unknown, 04/12/16) hydrochlorothiazide (Verified Allergy, Unknown, 04/12/16) metoprolol (Unverified Allergy, Unknown, 04/18/16) levofloxacin (Unverified Adverse Reaction, Unknown, CHEST TIGHTNESS, 04/12/16) Uncoded Allergies TETRACYLCLINE ( Adverse Reaction, Unknown, SEVERE HEARTBURN, 04/12/16) Past Zxfzwpi-Xmpivm-Kkaxjd Hx Patient Social History Marrital Status: Employed/Student: retired Alcohol Use: Denies Use Number of Drinks Today: II Alcohol Beverage of Choice: Other Recreational Drug Use: No Smoking Status: Never a Smoker 2nd Hand Smoke Exposure: No Physical Abuse Screen: No Sexual Abuse: No Recent Foreign Travel: No Contact w/other who traveled: No Recent Hopitalizations: No Recent Infectious Disease Expo: No Immunizations Up To Date Tetanus Booster (TDap): Unknown Date of Pneumonia Vaccine: May 31, 2009 Date of Influenza Vaccine: Oct 17, 2017 Seasonal Allergies Seasonal Allergies: No Surgeries Yes (APPY-1964, "STIMULATOR" IN BACK, RIGHT ANKLE SURGERY) Appendectomy, Hysterectomy, Neurological, Orthopedic Respiratory Yes (WHOOPING COUGH AT AGE 6YRS.) Cardiovascular Yes (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) Atrial Fibrillation, Hypertension Neurological Yes (NEUROPATHY ALL OVER, 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) Neuropathy Reproductive System : No Hx Reproductive Disorders: No HIV/AIDS: 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 Genitourinary Yes Renal Failure, UTI-Chronic Gastrointestinal Yes Gastroesophageal Reflux, Chronic Constipation Musculoskeletal Yes (CHRONIC NECK PAIN, LUMBAR RADICULOPATHY) Chronic Back Pain Endocrine History of Endocrine Disorders: No HEENT History of HEENT Disorders: No Loss of Vision: Bilateral Cancer No Psychosocial History of Psychiatric Problem: Yes Behavioral Health Disorders: Anxiety Integumentary History of Skin or Integumenta: No Blood Transfusions History of Blood Disorders: No Adverse Reaction to a Blood Tr: No (N/A) Family Medical History Significant Family History: No Pertinent Family Hx Review of Systems Constitutional: see HPI, weakness EENTM: no symptoms reported Respiratory: short of breath Cardiovascular: palpitations Gastrointestinal: nausea Genitourinary: decreased output Musculoskeletal: back pain Skin: no symptoms reported Psychiatric/Neurological: Depressed All Other Systems Reviewed Negative Unless Noted: Yes Physical Exam Physical Exam Vital Signs Vital Sign - Last 12Hours 11/02/17 11/03/17 16:30 00:00 Temp 100.3 Pulse 110 Resp 18 B/P (MAP) 143/129 (134) Pulse Ox 97 O2 Delivery Room Air O2 Flow Rate 2.00 Capillary Refill : Less Than 3 Seconds General Appearance: No Apparent Distress, WD/WN, Chronically ill, Other ( confused) Eyes: Bilateral Eye Normal Inspection, Bilateral Eye PERRL HEENT: PERRL/EOMI, Normal ENT Inspection, Pharynx Normal Neck: Full Range of Motion, Normal Inspection, Non Tender, Supple, Carotid Bruit Respiratory: Chest Non Tender, Lungs Clear, No Accessory Muscle Use, No Respiratory Distress, Decreased Breath Sounds Cardiovascular: No Edema, No Gallop, No JVD, No Murmur, Normal Peripheral Pulses, Irregularly Irregular Gastrointestinal: Normal Bowel Sounds, No Organomegaly, No Pulsatile Mass, Non Tender, Soft Back: Normal Inspection, No CVA Tenderness, No Vertebral Tenderness Extremity: Normal Capillary Refill, Normal Inspection, Normal Range of Motion, Non Tender, No Calf Tenderness, No Pedal Edema Neurologic/Psychiatric: Alert, No Motor/Sensory Deficits, Normal Mood/Affect, Other (confused, poor recall) Skin: Normal Color, Warm/Dry Lymphatic: No Adenopathy Results Results/Procedures Lab Laboratory Tests 11/02/17 17:17 11/03/17 03:54 Assessment/Plan Admission Diagnosis Laboratory Tests 11/02/17 17:17 11/03/17 03:54 Assessment: Sepsis Atrial fibrillation with rapid ventricular response requiring Cardizem drip and cardiology consultation Left sided pleural effusion versus infiltrate Hyponatremia History of chronic UTIs and now acute on chronic Dementia Chronic kyphosis Renal insufficiency history Chronic debility requiring [facility] placement Assessment and Plan Plan: I appreciate pulmonary and cardiology consultations Maintain Cardizem drip IV antibiotics Hold anticoagulation Pain control DO NOT RESUSCITATE Poor prognosis long-term Clinical Quality Measures DVT/VTE Risk/Contraindication: Risk Factor Score Per Nursin RFS Level Per Nursing on Admit: 4+=Very High TATIANA NYE DO Nov 03, 2017 13:43
[2017-11-03] MEDS: PATCH REMOVAL TP SCH (21:00)
[2017-11-04] VITALS (18 sets, daily range): BP systolic 106–146; BP diastolic 66–121
[2017-11-04 01:12] LABS: BASOPHILS % (AUTO) 0 % (0-10); EOSINOPHILS # (AUTO) 0.3 10^3/uL (0.0-0.3); EOSINOPHILS % (AUTO) 2 % (0-10); HEMATOCRIT 32 % (35-52); LYMPHOCYTES % (AUTO) 17 % (12-44); MEAN CORPUSCULAR HEMOGLOBIN 32 PG (25-34); MEAN CORPUSCULAR HGB CONC 34 G/DL (32-36); MEAN CORPUSCULAR VOLUME 96 FL (80-99); MEAN PLATELET VOLUME 8.9 FL (7.4-10.4); MONOCYTES # (AUTO) 1.4 X 10^3 (0.0-1.0); MONOCYTES % (AUTO) 12 % (0-12); NEUTROPHILS % (AUTO) 68 % (42-75); PLATELET COUNT 436 10^3/uL (130-400); RED BLOOD COUNT 3.39 10^6/uL (4.35-5.85); RED CELL DISTRIBUTION WIDTH 13.6 % (10.0-14.5); WHITE BLOOD COUNT 11.7 10^3/uL (4.3-11.0)
[2017-11-04 01:29] LABS: BUN/CREATININE RATIO 19; CALCIUM 8.2 MG/DL (8.5-10.1); CARBON DIOXIDE 19 MMOL/L (21-32); CHLORIDE 106 MMOL/L (98-107); CREATININE SERUM 0.81 MG/DL (0.60-1.30); GFR ESTIMATED > 60; GLUCOSE 129 MG/DL (70-105); MAGNESIUM 1.5 MG/DL (1.8-2.4); PHOSPHORUS 2.9 MG/DL (2.3-4.7); SODIUM 134 MMOL/L (135-145)
[2017-11-04] MEDS: MEROPENEM 500 MG/D5W 100 ML IVPB IV SCH ×8 (01:31→22:24)
[2017-11-04] MEDS: morphine INJ 4 MG/ML 1 ML (VIAL/SYRINGE) IVP PRN ×4 (02:13→22:08)
[2017-11-04] MEDS: NS IV 1000 ML 1,000 ML IV SCH ×2 (04:35→20:49)
[2017-11-04] MEDS: MAGNESIUM 1 GM/100 ML IVPB 100 ML IV SCH ×2 (06:58→08:39)
--- NOTE | 2017-11-04 07:43 | Pulmonary Progress Note ---
Subjective Time Seen by Provider: 07:44 Subjective/Events-last exam Pt still complains of SOB and right sided CP however she states it is somewhat improved. Exam Exam Vital Signs Date Time Temp Pulse Resp B/P (MAP) Pulse Ox O2 Delivery O2 Flow Rate FiO2 11/04/17 07:00 90 16 116/77 (90) 92 Nasal Cannula 2.00 11/04/17 06:00 83 16 117/80 (92) 92 Nasal Cannula 2.00 11/04/17 05:59 Nasal Cannula 2.00 11/04/17 05:00 96 16 118/79 (92) 92 Nasal Cannula 2.00 11/04/17 04:06 98.6 11/04/17 04:00 92 Nasal Cannula 2.00 11/04/17 04:00 85 16 129/84 (99) 93 Nasal Cannula 2.00 11/04/17 03:30 101.6 11/04/17 03:00 97 15 106/78 (87) 92 Nasal Cannula 2.00 11/04/17 02:00 103 16 119/76 (90) 94 Nasal Cannula 2.00 11/04/17 01:00 104 11/04/17 01:00 104 15 125/77 (93) 91 Nasal Cannula 2.00 11/04/17 00:00 96 Nasal Cannula 2.00 11/04/17 00:00 105 20 133/91 (105) 90 Nasal Cannula 2.00 11/03/17 23:00 78 17 119/76 (90) 94 Nasal Cannula 2.00 11/03/17 22:00 71 19 118/82 (94) 93 Nasal Cannula 2.00 11/03/17 21:00 69 18 112/80 (91) 91 Nasal Cannula 2.00 11/03/17 20:00 85 19 138/92 (107) 96 Nasal Cannula 2.00 11/03/17 20:00 98 Nasal Cannula 2.00 11/03/17 19:53 99.2 11/03/17 19:00 73 26 117/70 (86) 94 Nasal Cannula 2.00 11/03/17 19:00 73 11/03/17 18:00 66 26 107/65 (79) 94 Nasal Cannula 2.00 11/03/17 17:00 86 21 106/65 (79) 93 Nasal Cannula 2.00 11/03/17 16:00 85 27 135/79 (97) 91 Nasal Cannula 2.00 11/03/17 15:06 96 Nasal Cannula 2.00 11/03/17 15:00 78 24 118/82 (94) 92 Nasal Cannula 2.00 11/03/17 14:00 79 23 111/71 (84) 94 Nasal Cannula 2.00 11/03/17 13:00 90 15 113/76 (88) 94 Nasal Cannula 2.00 11/03/17 13:00 90 11/03/17 12:00 96 Nasal Cannula 2.00 11/03/17 12:00 80 21 118/81 (93) 95 Nasal Cannula 2.00 11/03/17 11:00 87 20 132/92 (105) 93 Nasal Cannula 2.00 11/03/17 10:00 93 15 138/96 (110) 92 Nasal Cannula 2.00 11/03/17 09:47 Nasal Cannula 1.50 11/03/17 09:00 105 27 138/96 (110) 90 Nasal Cannula 2.00 11/03/17 08:00 96 Nasal Cannula 2.00 11/03/17 08:00 84 15 131/85 (100) 96 Nasal Cannula 2.00 I & O 11/04/17 07:00 Intake Total 1990 ml Output Total 1750 ml Balance 240 ml General Appearance: No Apparent Distress, WD/WN, Chronically ill, Other ( confused) HEENT: PERRL/EOMI, Normal ENT Inspection, Pharynx Normal Neck: Full Range of Motion, Normal Inspection, Non Tender, Supple, Carotid Bruit Respiratory: Chest Non Tender, Lungs Clear, No Accessory Muscle Use, No Respiratory Distress, Decreased Breath Sounds Cardiovascular: No Edema, No Gallop, No JVD, No Murmur, Normal Peripheral Pulses, Irregularly Irregular Capillary Refill: Less Than 3 Seconds Extremity: Normal Capillary Refill, Normal Inspection, Normal Range of Motion, Non Tender, No Calf Tenderness, No Pedal Edema Neurologic/Psychiatric: Alert, No Motor/Sensory Deficits, Normal Mood/Affect, Other (confused, poor recall) Skin: Normal Color, Warm/Dry Lymphatic: No Adenopathy Results Lab Laboratory Tests 11/02/17 17:17 11/03/17 03:54 11/04/17 01:00 Assessment/Plan Assessment/Plan Sepsis -Continue Abx Pleuritic CP -Doubt cardiac etiology -check troponins, BNP , EKG -Morphine, and lidoderm patch Cellulitis of RUE Left pleural effusion -Check CT of chest today -PT is on Eliquis can not do thoracentesis at this time. Will see how pt is doing tomorrow. -Change Eliquis to Heparin gtt for possible thoracentesis tomorrow. -Check BNP Hx of Afib RVR -currently on cardizem Will do ICU stepdown and leave in ICU. 233 Clinical Quality Measures DVT/VTE Risk/Contraindication: Risk Factor Score Per Nursin RFS Level Per Nursing on Admit: 4+=Very High SHITAL HUDSON DO Nov 04, 2017 07:43
[2017-11-04] MEDS ORDERED: IOHEXOL 350 MG/ML 150 ML (OMNIPAQUE 350) VIAL IV ONE (07:45)
[2017-11-04] MEDS ORDERED: NS 100 ML (IVPB) BAG IV ONE (07:45)
[2017-11-04] MEDS ORDERED: TROUGH ORDER-PHARMACY XX NR (08:00)
--- NOTE | 2017-11-04 08:11 | Progress Note-Hospitalist ---
Subjective HPI/CC On Admission Date Seen by Provider: Nov 04, 2017 Time Seen by Provider: 07:35 CC: Sepsis with AF w/RVR HPI: This is an 82-year-old white female known to me from prior hospitalist service admission due to supratherapeutic INR of 9 requiring vitamin K administration without bleeding sequela and UTI who was then [facility] at [facility] for [facility] care who presented to the ER with fever and confusion. She was found to have atrial fibrillation with rapid ventricular response, left- sided pleural effusion superimposed with infiltrate and leukocytosis with sepsis. She was subsequently placed on Cardizem drip of which she had weaned off within placed again on the infusion due to return of rapid ventricular response. Patient is confused does not recall who I am and obvious cognitive decline and she maintains DO NOT RESUSCITATE status. Subjective/Events-last exam Pt reports feeling poorly but has difficulty qualifying her symptoms. Just states "I have pneumonia" when asked what still doesn't feel well. Objective Exam Vital Signs Vital Sign - Last 12Hours 11/02/17 11/03/17 16:30 00:00 Temp 100.3 Pulse 110 Resp 18 B/P (MAP) 143/129 (134) Pulse Ox 97 O2 Delivery Room Air O2 Flow Rate 2.00 Capillary Refill : Less Than 3 Seconds General Appearance: No Apparent Distress, WD/WN Respiratory: No Respiratory Distress, Decreased Breath Sounds (left base), Other (on oxygen) Cardiovascular: No Edema, No JVD, Irregularly Irregular Gastrointestinal: Normal Bowel Sounds, Non Tender, Soft Extremity: Non Tender, No Calf Tenderness Neurologic/Psychiatric: Alert, Other (oriented to person and place, unsure if fully oriented to situation) Results/Procedures Lab Laboratory Tests 11/04/17 01:00 Assessment/Plan Assessment and Plan Assess & Plan/Chief Complaint A-fib with RVR Diagnosis/Problems Diagnosis/Problems (1) Atrial fibrillation with RVR Status: Acute Assessment & Plan: Continue Dilt Rate improved (2) Sepsis Status: Acute Assessment & Plan: On Merrem and Vanc Still running fevers Will get CT to evaluate effusion further UA contaminated so no culture done Blood cx NGTD Qualifiers: Qualified Codes: A41.9 - Sepsis, unspecified organism (3) Pleural effusion, left Status: Acute Assessment & Plan: Pulm consulted, appreciate recs CT today to evaluate for possible thoracentesis tomorrow (4) Urinary tract infection Status: Acute Assessment & Plan: Has history of chronic UTIs UA this time appears contaminated Continue abx Qualifiers: Qualified Codes: N39.0 - Urinary tract infection, site not specified; R31.9 - Hematuria, unspecified (5) Confusion Assessment & Plan: Appears baseline to me from her last admission KERWIN CARRERA MD Nov 04, 2017 08:11
--- NOTE | 2017-11-04 08:34 | Diagnostic Imaging Report ---
INDICATION: Cellulitis. Portable chest 5:20 AM FINDINGS: There is consolidation at the left lung base with an effusion. There is left perihilar atelectasis. Right lung is clear. IMPRESSION: Left basilar consolidation with effusion and left perihilar atelectasis are unchanged from previous day. Dictated by: Dictated on workstation # [id number]
[2017-11-04] MEDS: D5W IV SCH ×4 (08:48→20:43)
[2017-11-04] MEDS: DILTIAZEM 120 MG (CARDIZEM CD) CAP PO SCH (08:48)
[2017-11-04] MEDS: VANCOMYCIN IV SCH ×4 (08:48→20:43)
[2017-11-04] MEDS: LIDOCAINE (LIDODERM) 5% PATCH TOP SCH (08:48)
--- NOTE | 2017-11-04 08:58 | Cardiology Progress Note ---
Subjective Date Seen by Provider: Nov 04, 2017 Time Seen by Provider: 08:54 Subjective/Events-last exam patient is laying down in bed, still having some pleuritic chest pain, complaint of fatigue and loss of energy, events from admission were reviewed Review of Systems General: No Chills, No Night Sweats, Fatigue, Malaise, No Appetite, No Other HEENT: No Head Aches, No Visual Changes, No Eye Pain, No Ear Pain, No Dysphasia , No Sinus Congestion, No Post Nasal Drip, No Sore Throat, No Other Pulmonary: Dyspnea, Cough, Pleuritic Chest Pain, No Other Cardiovascular: Chest Pain, No: Palpitations, Orthopnea, Paroxysmal Noc. Dyspnea, Edema, Lt Headedness, Other Objective-Cardiology Exam Last Set of Vital Signs Vital Signs 11/04/17 11/04/17 07:00 08:37 Temp 98.3 Pulse 90 Resp 16 B/P (MAP) 116/77 (90) Pulse Ox 92 O2 Delivery Nasal Cannula O2 Flow Rate 2.00 Capillary Refill : Less Than 3 Seconds I&O Intake and Output 11/04/17 00:00 Intake Total 2640 ml Output Total 1400 ml Balance 1240 ml Intake Oral 1290 ml IV Total 1350 ml Output Urine Total 1400 ml # Voids 6 General: Alert, Oriented X3, Cooperative HEENT: Atraumatic, PERRLA Neck: Supple, No JVD, No Thyromegaly Lungs: Normal Air Movement, Other (wet rales at the bases) Heart: Normal S1, Normal S2, No Murmurs, Other (irregular) Abdomen: Normal Bowel Sounds, Soft, No Tenderness, No Hepatosplenomegaly, No Masses Extremities: No Clubbing, No Cyanosis, No Edema, Normal Pulses, No Tenderness/ Swelling Skin: No Rashes, No Breakdown, No Significant Lesion Neuro: Normal Speech, Strength at 5/5 X4 Ext, Normal Tone, Sensation Intact Psych/Mental Status: Mental Status NL, Mood NL Results Lab Laboratory Tests 11/04/17 01:00 A/P-Cardiology Admission Diagnosis Anterior chest wall pain Atrial fibrillation Pneumonia Pleural effusion Assessment/Plan Pleuritic chest pain, pleural effusion, scheduled for thoracentesis, managed by Dr. Malhotra Sepsis, pneumonia followed by UTI. Improving, receiving antibiotic Back pain and shoulder pain, on pain meds Mild nonobstructive coronary artery disease, cardiac catheterization was done in 2009. Continue to monitor. Permanent atrial fibrillation, came in with rapid ventricular response, currently heart rate is controlled, back to oral Cardizem. Continue to monitor [id number] score is 4, yearly risk of stroke without oral anticoagulation is 4 percent, has history of intolerance to amiodarone or Multaq. On Eliquis. Eliquis held and started on IV heparin for pleural tap by Dr malhotra. Valvular heart disease with Severe mitral regurgitation noted on echocardiogram on June 09, 2015, repeat 2-D echocardiogram March 2016 revealed mild MR, moderate AR. continue to monitor Pulmonary hypertension, most recent 2-D echocardiogram done March 2016 revealed PA pressure 30 mmHg. Continue to monitor. Hypertension, controlled. Monitor blood pressure. Hyperlipidemia, controlled. Maintained on Zocor 10 mg daily. Unable to increased Zocor due to interaction with diltiazem. Lipids are well controlled. Lipid/LFTs due again in 6 months. Mild bilateral nonobstructive carotid artery stenosis, last carotid ultrasound was done in August 2016. Continue to monitor. Anxiety Erythromelalgia, with reflex sympathetic dystrophy. Patient has been seen by Dr. Jama Fernandes in [place]. Peripheral neuropathy, patient is status post spinal stimulator. Clinical Quality Measures DVT/VTE Risk/Contraindication: Risk Factor Score Per Nursin RFS Level Per Nursing on Admit: 4+=Very High VIJAY SIDDIQUI MD Nov 04, 2017 08:58
[2017-11-04] MEDS: HEParin DRIP 25000 UNIT/500ML 500 ML IV SCH (09:34)
[2017-11-04] MEDS: RT-ALBUTEROL/IPRATROPIUM 3 ML (DUONEB) VIAL INH SCH ×4 (10:35→22:18)
--- NOTE | 2017-11-04 10:57 | Diagnostic Imaging Report ---
PROCEDURE: CT angiography of the chest with contrast. TECHNIQUE: Multiple contiguous axial images were obtained through the chest after uneventful bolus administration of intravenous contrast. Reconstructed CTA MIP acquisitions were also performed. INDICATION: Chest pain and respiratory distress. FINDINGS: The previous CTA chest exam performed on 10/19/2017 failed to show any sign of a pulmonary embolus or of a dissection. On this study, there is still no definite defect within the pulmonary arteries to indicate a pulmonary embolus. The pulmonary arteries to the left lung base are difficult to evaluate; however, as they are compressed by the atelectasis/infiltrate and fluid involving the left lung base. The amount of fluid in the left lung base has increased since the prior exam. The fluid now measures approximately 5.5 cm in maximum depth as opposed to 3.7 cm on the prior exam. The fluid in the right lung base is similar to the prior exam measuring approximately 4.3 cm in maximum depth. There is also some associated atelectasis/infiltrate in the left lung base. There has also been some increase in the atelectasis/infiltrate in the left upper lobe since the prior exam. There also appears to be generalized increased density in the subcutaneous fat of the lower thorax and upper abdomen. This may be related to anasarca. There is no sign of a dissection of the aorta. The heart is enlarged but stable in size. There is no mediastinal or hilar adenopathy. The thyroid gland is generally unremarkable. The sections through the upper abdomen fail to show any evidence for an acute abnormality. The bone windows are unremarkable for a fracture or for a destructive lesion. The dorsal stimulator device seen previously is again evident and unchanged in position. IMPRESSION: There is still no evidence for a pulmonary embolus or for a dissection. However, the appearance of the chest has worsened since the prior study as there is greater involvement of the left lung by pneumonia/atelectasis and pleural fluid. Dictated by: Dictated on workstation # [id number]
[2017-11-04] MEDS ORDERED: NS IV 500 ML 500 ML IV ONE (19:15)
[2017-11-04] MEDS: PATCH REMOVAL TP SCH (20:43)
[2017-11-04] MEDS ORDERED: DILTIAZEM 60 MG (CARDIZEM) TAB PO SCH (20:45)
[2017-11-05] VITALS (23 sets, daily range): BP systolic 91–133; BP diastolic 56–96
[2017-11-05] MEDS: RT-ALBUTEROL/IPRATROPIUM 3 ML (DUONEB) VIAL INH SCH ×6 (02:30→21:05)
[2017-11-05] MEDS: morphine INJ 4 MG/ML 1 ML (VIAL/SYRINGE) IVP PRN ×5 (04:20→15:13)
[2017-11-05 04:53] LABS: BASOPHILS % (AUTO) 0 % (0-10); EOSINOPHILS # (AUTO) 0.4 10^3/uL (0.0-0.3); EOSINOPHILS % (AUTO) 3 % (0-10); HEMATOCRIT 32 % (35-52); HEMOGLOBIN 10.6 G/DL (11.5-16.0); LYMPHOCYTES # (AUTO) 1.9 X 10^3 (1.0-4.0); LYMPHOCYTES % (AUTO) 19 % (12-44); MEAN CORPUSCULAR HEMOGLOBIN 32 PG (25-34); MEAN CORPUSCULAR HGB CONC 33 G/DL (32-36); MEAN CORPUSCULAR VOLUME 96 FL (80-99); MEAN PLATELET VOLUME 9.4 FL (7.4-10.4); MONOCYTES # (AUTO) 1.6 X 10^3 (0.0-1.0); MONOCYTES % (AUTO) 16 % (0-12); NEUTROPHILS # (AUTO) 6.3 X 10^3 (1.8-7.8); NEUTROPHILS % (AUTO) 62 % (42-75); PLATELET COUNT 415 10^3/uL (130-400); RED BLOOD COUNT 3.31 10^6/uL (4.35-5.85); RED CELL DISTRIBUTION WIDTH 13.7 % (10.0-14.5); WHITE BLOOD COUNT 10.2 10^3/uL (4.3-11.0)
--- NOTE | 2017-11-05 05:09 | Pulmonary Progress Note ---
Subjective Time Seen by Provider: 05:11 Subjective/Events-last exam Pt is more dyspneic with accessory muscle use. Exam Exam Vital Signs Date Time Temp Pulse Resp B/P (MAP) Pulse Ox O2 Delivery O2 Flow Rate FiO2 11/05/17 04:00 82 16 116/84 (95) 92 Nasal Cannula 3.00 11/05/17 04:00 99.9 11/05/17 04:00 93 Nasal Cannula 3.00 11/05/17 03:00 91 17 118/90 (99) 92 Nasal Cannula 3.00 11/05/17 02:30 92 Nasal Cannula 3.00 11/05/17 02:00 90 20 122/82 (95) 91 Nasal Cannula 3.00 11/05/17 01:00 93 14 98/79 (85) 94 Nasal Cannula 3.00 11/05/17 01:00 85 11/05/17 00:00 92 15 107/65 (79) 91 Nasal Cannula 3.00 11/04/17 23:50 99.9 91 Nasal Cannula 3.00 11/04/17 23:00 101 14 106/66 (79) 91 Nasal Cannula 3.00 11/04/17 23:00 91 Nasal Cannula 3.00 11/04/17 22:18 92 Nasal Cannula 3.00 11/04/17 22:05 111 15 92 Nasal Cannula 3.00 11/04/17 22:00 120 17 140/93 (109) 92 Nasal Cannula 2.00 11/04/17 21:00 113 28 140/94 (109) 92 Nasal Cannula 2.00 11/04/17 20:00 121 27 135/73 (93) 92 Nasal Cannula 2.00 11/04/17 20:00 Nasal Cannula 2.00 11/04/17 20:00 92 Nasal Cannula 2.00 11/04/17 19:50 100.2 131 24 129/82 (98) 92 Nasal Cannula 2.00 11/04/17 19:00 123 11/04/17 19:00 123 24 93 Nasal Cannula 2.00 11/04/17 18:21 92 Nasal Cannula 2.00 11/04/17 16:19 99.7 105 21 124/70 (88) 92 Nasal Cannula 2.00 11/04/17 16:19 Nasal Cannula 2.00 11/04/17 13:52 91 Nasal Cannula 2.00 11/04/17 13:00 86 2/5/18 12:00 129 12 115/89 (98) 90 Nasal Cannula 2.00 11/04/17 11:39 99.0 Nasal Cannula 2.00 11/04/17 11:00 118 18 146/121 (129) 93 Nasal Cannula 2.00 11/04/17 10:35 91 Nasal Cannula 2.00 11/04/17 10:00 Nasal Cannula 2.00 11/04/17 09:00 96 17 129/81 (97) 93 Nasal Cannula 2.00 11/04/17 08:37 Nasal Cannula 2.00 11/04/17 08:37 98.3 Nasal Cannula 2.00 11/04/17 08:00 102 18 135/112 (120) 90 Nasal Cannula 2.00 11/04/17 07:00 90 11/04/17 07:00 90 16 116/77 (90) 92 Nasal Cannula 2.00 11/04/17 06:00 83 16 117/80 (92) 92 Nasal Cannula 2.00 11/04/17 05:59 Nasal Cannula 2.00 I & O 11/05/17 07:00 Intake Total 2550 ml Output Total 1150 ml Balance 1400 ml General Appearance: WD/WN, Moderate Distress HEENT: PERRL/EOMI, Normal ENT Inspection, Pharynx Normal Neck: Full Range of Motion, Normal Inspection, Non Tender, Supple, Carotid Bruit Respiratory: No Respiratory Distress, Decreased Breath Sounds (left base), Other (on oxygen) Cardiovascular: No Edema, No JVD, Irregularly Irregular Capillary Refill: Less Than 3 Seconds Extremity: Non Tender, No Calf Tenderness Neurologic/Psychiatric: Alert, Other (oriented to person and place, unsure if fully oriented to situation) Skin: Normal Color, Warm/Dry Lymphatic: No Adenopathy Results Lab Laboratory Tests 11/04/17 01:00 11/05/17 04:10 Assessment/Plan Assessment/Plan Sepsis -Continue Abx Pleuritic CP -Doubt cardiac etiology -check troponins, BNP , EKG -Morphine, and Lidoderm patch Cellulitis of RUE Left pleural effusion - CT of chest reviewed -Will plan Thoracentesis for this morning -Hold Heparin, hep lock IVF and give 40mg of IV lasix X 1 -Check BNP Hx of Afib RVR -Cardiology following PT needs to stay in ICU today. 233 Clinical Quality Measures DVT/VTE Risk/Contraindication: Risk Factor Score Per Nursin RFS Level Per Nursing on Admit: 4+=Very High SHITAL HUDSON DO Nov 05, 2017 05:09
[2017-11-05 05:12] LABS: BUN/CREATININE RATIO 13; CALCIUM 8.7 MG/DL (8.5-10.1); CARBON DIOXIDE 17 MMOL/L (21-32); CHLORIDE 108 MMOL/L (98-107); CREATININE SERUM 0.78 MG/DL (0.60-1.30); GFR ESTIMATED > 60; GLUCOSE 105 MG/DL (70-105); PHOSPHORUS 3.6 MG/DL (2.3-4.7); POTASSIUM 4.1 MMOL/L (3.6-5.0); SODIUM 134 MMOL/L (135-145)
[2017-11-05] MEDS: KCL 20 MEQ TAB (K-DUR) PO SCH (05:14)
[2017-11-05] MEDS: MAGNESIUM 1 GM/100 ML IVPB 100 ML IV SCH (05:14)
[2017-11-05] MEDS: POTASSIUM CL 10MEQ/50ML IVPB 50 ML IV SCH (05:14)
[2017-11-05] MEDS ORDERED: FUROSEMIDE 40 MG/4 ML INJ (LASIX) IVP ONE (05:15)
[2017-11-05] MEDS: MEROPENEM 500 MG/D5W 100 ML IVPB IV SCH ×6 (05:44→21:57)
[2017-11-05] MEDS ORDERED: KCL 20 MEQ TAB (K-DUR) PO SCH (06:00)
[2017-11-05] MEDS ORDERED: MAGNESIUM 1 GM/100 ML IVPB 100 ML IV SCH (06:00)
[2017-11-05] MEDS ORDERED: POTASSIUM CL 10MEQ/50ML IVPB 50 ML IV SCH (06:00)
[2017-11-05] MEDS ORDERED: TROUGH ORDER-PHARMACY XX NR (08:00)
--- NOTE | 2017-11-05 08:00 | Progress Note-Hospitalist ---
Subjective HPI/CC On Admission Date Seen by Provider: Nov 05, 2017 Time Seen by Provider: 07:45 CC: Sepsis with AF w/RVR HPI: This is an 82-year-old white female known to me from prior hospitalist service admission due to supratherapeutic INR of 9 requiring vitamin K administration without bleeding sequela and UTI [facility] who presented to the ER with fever and confusion. She was found to have atrial fibrillation with rapid ventricular response, left- sided pleural effusion superimposed with infiltrate and leukocytosis with sepsis. She was subsequently placed on Cardizem drip of which she had weaned off within placed again on the infusion due to return of rapid ventricular response. Patient is confused does not recall who I am and obvious cognitive decline and she maintains DO NOT RESUSCITATE status. Subjective/Events-last exam Pt reports feeling better today. Feels her feet are swollen but no other complaints. Normally wears compression socks. Objective Exam Vital Signs Vital Sign - Last 12Hours 11/02/17 11/03/17 16:30 00:00 Temp 100.3 Pulse 110 Resp 18 B/P (MAP) 143/129 (134) Pulse Ox 97 O2 Delivery Room Air O2 Flow Rate 2.00 Capillary Refill : Less Than 3 Seconds General Appearance: No Apparent Distress, WD/WN Respiratory: No Accessory Muscle Use, No Respiratory Distress, Decreased Breath Sounds Cardiovascular: No JVD, Irregularly Irregular Gastrointestinal: Normal Bowel Sounds, Non Tender, Soft Extremity: No Calf Tenderness, Pedal Edema Neurologic/Psychiatric: Alert, Oriented x3 Results/Procedures Lab Laboratory Tests 11/05/17 04:10 Assessment/Plan Assessment and Plan Assess & Plan/Chief Complaint A-fib with RVR Diagnosis/Problems Diagnosis/Problems (1) Sepsis Status: Acute Assessment & Plan: On Merrem and Vanc afebrile x24 currently UA contaminated so no culture done Blood cx NGTD Qualifiers: Qualified Codes: A41.9 - Sepsis, unspecified organism (2) Pleural effusion, left Status: Acute Assessment & Plan: Pulm consulted, appreciate recs Thoracentesis planned for today CT shows worsening pleural effusion/pna (3) Atrial fibrillation with RVR Status: Resolved Assessment & Plan: Remains in a-fib Continue Dilt Rate improved (4) Urinary tract infection Status: Acute Assessment & Plan: Has history of chronic UTIs UA this time appears contaminated Continue abx Qualifiers: Qualified Codes: N39.0 - Urinary tract infection, site not specified; R31.9 - Hematuria, unspecified (5) Confusion Assessment & Plan: Appears baseline to me from her last admission Was oriented to major details but has poor short term recall KERWIN CARRERA MD Nov 05, 2017 7:59 am
--- NOTE | 2017-11-05 08:03 | Cardiology Progress Note ---
Subjective Date Seen by Provider: Nov 05, 2017 Time Seen by Provider: 08:01 Subjective/Events-last exam patient is laying down in bed, still having some shortness of breath and pleuritic chest pain. Generalized fatigue. Review of Systems General: No Chills, No Night Sweats, Fatigue, Malaise, No Appetite, No Other HEENT: No Head Aches, No Visual Changes, No Eye Pain, No Ear Pain, No Dysphasia , No Sinus Congestion, No Post Nasal Drip, No Sore Throat, No Other Pulmonary: Dyspnea, No Cough, Pleuritic Chest Pain, No Other Cardiovascular: No: Chest Pain, Palpitations, Orthopnea, Paroxysmal Noc. Dyspnea, Edema, Lt Headedness, Other Objective-Cardiology Exam Last Set of Vital Signs Vital Signs 11/05/17 11/05/17 06:00 06:15 Pulse 85 Resp 15 B/P (MAP) 126/77 (93) Pulse Ox 93 O2 Delivery Nasal Cannula O2 Flow Rate 3.00 Capillary Refill : Less Than 3 Seconds I&O Intake and Output 11/05/17 00:00 Intake Total 2650 ml Output Total 1365 ml Balance 1285 ml Intake Oral 150 ml IV Total 2500 ml Output Urine Total 1365 ml General: Alert, Oriented X3, Cooperative HEENT: Atraumatic, PERRLA Neck: Supple, No JVD, No Thyromegaly Lungs: Normal Air Movement, Other (wet rales at the bases) Heart: Normal S1, Normal S2, No Murmurs, Other (irregular) Abdomen: Normal Bowel Sounds, Soft, No Tenderness, No Hepatosplenomegaly, No Masses Extremities: No Clubbing, No Cyanosis, No Edema, Normal Pulses, No Tenderness/ Swelling Skin: No Rashes, No Breakdown, No Significant Lesion Neuro: Normal Speech, Strength at 5/5 X4 Ext, Normal Tone, Sensation Intact Psych/Mental Status: Mental Status NL, Mood NL Results Lab Laboratory Tests 11/05/17 04:10 A/P-Cardiology Admission Diagnosis Anterior chest wall pain Atrial fibrillation Pneumonia Pleural effusion Assessment/Plan Pleuritic chest pain, pleural effusion, scheduled for thoracentesis, managed by Dr. Malhotra Sepsis, pneumonia and UTI. receiving antibiotic, still short of breath Back pain and shoulder pain, on pain meds Mild nonobstructive coronary artery disease, cardiac catheterization was done in 2009. Continue to monitor. Permanent atrial fibrillation, came in with rapid ventricular response, currently heart rate is controlled, back to oral Cardizem. Continue to monitor [id number] score is 4, yearly risk of stroke without oral anticoagulation is 4 percent, has history of intolerance to amiodarone or Multaq. On Eliquis. Eliquis held and started on IV heparin for pleural tap by Dr Malhotra. Valvular heart disease with Severe mitral regurgitation noted on echocardiogram on June 09, 2015, repeat 2-D echocardiogram March 2016 revealed mild MR, moderate AR. continue to monitor Pulmonary hypertension, most recent 2-D echocardiogram done March 2016 revealed PA pressure 30 mmHg. Continue to monitor. Hypertension, controlled. Monitor blood pressure. Hyperlipidemia, controlled. Maintained on Zocor 10 mg daily. Unable to increased Zocor due to interaction with diltiazem. Lipids are well controlled. Lipid/LFTs due again in 6 months. Mild bilateral nonobstructive carotid artery stenosis, last carotid ultrasound was done in August 2016. Continue to monitor. Anxiety Erythromelalgia, with reflex sympathetic dystrophy. Patient has been seen by Dr. Jama Fernandes in [place]. Peripheral neuropathy, patient is status post spinal stimulator. Clinical Quality Measures DVT/VTE Risk/Contraindication: Risk Factor Score Per Nursin RFS Level Per Nursing on Admit: 4+=Very High VIJAY SIDDIQUI MD Nov 05, 2017 08:03
[2017-11-05] MEDS ORDERED: LIDOCAINE 1% INJ 20 ML (XYLOCAINE) VIAL ONE (08:09)
--- NOTE | 2017-11-05 08:59 | Diagnostic Imaging Report ---
Portable erect AP chest at 4:12. Indication: Sepsis, cellulitis Findings: The appearance of the chest has improved since the prior exam of 11/04/2017 as the heart has decreased in size and the left lung base does seem somewhat better aerated. The left lower lobe remains obscured by atelectasis/infiltrate and fluid. The band of atelectasis/infiltrate extending from the left hilum to the periphery of the left upper lung seen previous is again evident and no different. The atelectasis/infiltrate in the right lung base does not appear to have changed and the right upper lung is somewhat greater than on the prior study however. Mediastinum is not widened. The osseous structures are intact. The dorsal stimulator device is again visualized. Impression: There are mixed results. The heart has decreased in size and the left lung base does seem somewhat better aerated. However there is greater involvement of the right upper lung and right lung base by pneumonia/atelectasis. A followup exam would recommended for continued evaluation. Dictated by: Dictated on workstation # [id number]
--- NOTE | 2017-11-05 09:08 | Pulmonary Procedures ---
Pulmonary Procedures Date of Procedure Date of Service: Nov 05, 2017 Procedure: US guided complex LEft thoracentesis Preop DX: Left pleural effusion post op DX: Same ([800]cc of red fluid obtained) Complications: None After informed consent obtained US was used to localize pleural fluid. Pt has [ bilateral L>R] pleural effusions. Skin was anesthetized at approximately the 10th ICS posterior axillary line. Thoracentesis needle was advanced through the 10th ICS posterior axillary line. Needle was removed and catheter left in place.800cc of red fluid obtained using vacuum bottles. Catheter was then removed. Pt tolerated procedure well. No complications noted. SHITAL HUDSON DO Nov 05, 2017 09:08
[2017-11-05 10:17] LABS: GLUCOSE,BODY FLUID 104 MG/DL; LDH,BODY FLUID 231 U/L; TOTAL PROTEIN,BODY FLUID 2.6 G/DL
--- NOTE | 2017-11-05 10:41 | Diagnostic Imaging Report ---
Procedure: Portable erect AP chest at 9:17. Indication: Respiratory distress. Findings: In the interval since the exam performed earlier today at 4:12 a.m., the patient has undergone thoracentesis on the left. The left lung base does seem much better aerated although there are still a small amount of residual atelectasis/infiltrate and fluid in the left lung base. The band of increased density extending from the left hilum to the left upper lung seen on the prior exam has resolved. There is no sign of a pneumothorax on the left. There may be somewhat greater involvement of the right lung base by atelectasis/infiltrate and fluid than during the prior study. The vague area of increased density in the right upper lobe seen previous is again evident and they are different. The heart is stable. The mediastinum is not widened. The osseous structures are intact. Impression: 1. The appearance of the chest has improved following thoracentesis on the left as the left lung base does seem now much better aerated. There is no sign of a pneumothorax on the left. 2. There has been some increase in the atelectasis/infiltrate and fluid in the right lung base. 3. A followup exam would be recommended for continued evaluation. Dictated by: Dictated on workstation # [id number]
[2017-11-05 10:43] LABS: BODY FLUID COLOR YELLOW; BODY FLUID SOURCE THORACEN
[2017-11-05 10:44] LABS: BODY FLUID APPEARENCE MOD CLDY; BODY FLUID RBC COUNT 6050 /uL; BODY FLUID WBC TOTAL COUNT 2000 /uL
[2017-11-05] MEDS: DILTIAZEM 120 MG (CARDIZEM CD) CAP PO SCH (10:46)
[2017-11-05] MEDS: LIDOCAINE (LIDODERM) 5% PATCH TOP SCH (10:46)
[2017-11-05] MEDS: VANCOMYCIN 750 MG/NS 250 ML IVPB IV SCH ×2 (10:47)
[2017-11-05 10:56] LABS: LYMPHOCYTES,BODY FLUID 12 %
[2017-11-05] MEDS: IBUPROFEN 600 MG (MOTRIN) TAB PO SCH ×2 (17:03→23:56)
[2017-11-05] MEDS: HEParin DRIP 25000 UNIT/500ML 500 ML IV SCH (20:34)
[2017-11-05] MEDS: PATCH REMOVAL TP SCH (21:57)
[2017-11-06] VITALS (13 sets, daily range): BP systolic 102–128; BP diastolic 59–93
[2017-11-06 00:35] LABS: BILIRUBIN,URINE NEGATIVE (NEGATIVE); COLOR,URINE AMBER; GLUCOSE, URINE (UA) NEGATIVE (NEGATIVE); KETONES,URINE NEGATIVE (NEGATIVE); LEUKOCYTE ESTERASE ,URINE 1+ (NEGATIVE); NITRITE,URINE NEGATIVE (NEGATIVE); PH,URINE 5 (5-9); PROTEIN,URINE 2+ (NEGATIVE); UROBILINOGEN,URINE NORMAL (NORMAL)
[2017-11-06 00:43] LABS: BACTERIA,URINE MODERATE /HPF; GRANULAR CASTS,URINE RARE /LPF; HYALINE CASTS, URINE RARE /LPF; RBC,URINE 25-50 /HPF; WBC,URINE 0-2 /HPF
[2017-11-06 00:44] LABS: CLARITY,URINE CLOUDY
[2017-11-06] MEDS: RT-ALBUTEROL/IPRATROPIUM 3 ML (DUONEB) VIAL INH SCH ×6 (01:52→23:26)
[2017-11-06 04:42] LABS: BASOPHILS % (AUTO) 0 % (0-10); EOSINOPHILS # (AUTO) 0.7 10^3/uL (0.0-0.3); EOSINOPHILS % (AUTO) 6 % (0-10); HEMATOCRIT 31 % (35-52); HEMOGLOBIN 10.5 G/DL (11.5-16.0); LYMPHOCYTES # (AUTO) 1.5 X 10^3 (1.0-4.0); LYMPHOCYTES % (AUTO) 13 % (12-44); MEAN CORPUSCULAR HEMOGLOBIN 32 PG (25-34); MEAN CORPUSCULAR HGB CONC 34 G/DL (32-36); MEAN CORPUSCULAR VOLUME 95 FL (80-99); MEAN PLATELET VOLUME 8.8 FL (7.4-10.4); MONOCYTES # (AUTO) 1.4 X 10^3 (0.0-1.0); MONOCYTES % (AUTO) 13 % (0-12); NEUTROPHILS # (AUTO) 7.4 X 10^3 (1.8-7.8); NEUTROPHILS % (AUTO) 68 % (42-75); PLATELET COUNT 404 10^3/uL (130-400); RED BLOOD COUNT 3.27 10^6/uL (4.35-5.85); RED CELL DISTRIBUTION WIDTH 13.3 % (10.0-14.5)
[2017-11-06 04:52] LABS: INR 1.3 (0.8-1.4); PROTHROMBIN TIME PATIENT 16.7 SEC (12.2-14.7)
[2017-11-06 05:04] LABS: MAGNESIUM 1.8 MG/DL (1.8-2.4); PHOSPHORUS 4.1 MG/DL (2.3-4.7); POTASSIUM 3.8 MMOL/L (3.6-5.0)
[2017-11-06] MEDS: POTASSIUM CL 10MEQ/50ML IVPB 50 ML IV SCH (05:19)
[2017-11-06] MEDS: MAGNESIUM 1 GM/100 ML IVPB 100 ML IV SCH (05:20)
[2017-11-06] MEDS: KCL 20 MEQ TAB (K-DUR) PO SCH (05:20)
[2017-11-06] MEDS: MEROPENEM 500 MG/D5W 100 ML IVPB IV SCH ×6 (06:38→21:24)
[2017-11-06] MEDS: IBUPROFEN 600 MG (MOTRIN) TAB PO SCH ×4 (06:38→23:40)
--- NOTE | 2017-11-06 07:26 | Pulmonary Progress Note ---
Subjective Time Seen by Provider: 07:26 Subjective/Events-last exam no complications noted. Exam Exam Vital Signs Date Time Temp Pulse Resp B/P (MAP) Pulse Ox O2 Delivery O2 Flow Rate FiO2 11/06/17 06:52 96 Nasal Cannula 4.00 11/06/17 06:46 89 102/68 (79) 11/06/17 06:00 81 25 102/91 (95) 96 Nasal Cannula 4.00 11/06/17 05:00 81 12 113/71 (85) 96 Nasal Cannula 4.00 11/06/17 04:00 97.4 11/06/17 04:00 92 11 104/72 (83) 96 Nasal Cannula 4.00 11/06/17 04:00 Nasal Cannula 4.00 11/06/17 03:00 89 22 105/86 (92) 96 Nasal Cannula 4.00 11/06/17 02:00 98 24 112/64 (80) 95 Nasal Cannula 4.00 11/06/17 01:53 94 Nasal Cannula 5.00 11/06/17 01:05 98 11/06/17 01:00 105 26 126/93 (104) 93 Nasal Cannula 4.00 11/06/17 00:39 95 Nasal Cannula 4.00 11/06/17 00:00 97.9 11/06/17 00:00 90 12 125/78 (94) 95 Nasal Cannula 4.00 11/05/17 23:00 91 22 126/82 (97) 92 Nasal Cannula 4.00 11/05/17 22:00 86 20 109/73 (85) 97 Nasal Cannula 4.00 11/05/17 21:06 94 Nasal Cannula 5.00 11/05/17 21:00 75 35 111/77 (88) 95 Nasal Cannula 4.00 11/05/17 20:30 94 Nasal Cannula 4.00 11/05/17 20:00 98.1 75 21 94/68 (77) 96 Nasal Cannula 4.00 11/05/17 19:00 66 20 101/63 (76) 95 Nasal Cannula 3.00 11/05/17 18:59 67 11/05/17 18:00 65 16 91/56 (68) 93 Nasal Cannula 3.00 11/05/17 17:00 75 15 99/73 (82) 93 Nasal Cannula 3.00 11/05/17 16:00 91 28 121/77 (92) 92 Nasal Cannula 3.00 11/05/17 16:00 93 Nasal Cannula 3.00 11/05/17 15:43 99.9 11/05/17 15:00 90 36 125/78 (94) 92 Nasal Cannula 3.00 11/05/17 14:00 98 15 95 Nasal Cannula 3.00 11/05/17 13:49 95 Nasal Cannula 5.00 11/05/17 13:00 109 14 127/95 (106) 94 Nasal Cannula 3.00 11/05/17 13:00 102 11/05/17 12:00 105 13 119/86 (97) 93 Nasal Cannula 3.00 11/05/17 12:00 93 Nasal Cannula 3.00 11/05/17 11:00 107 10 133/76 (95) 95 Nasal Cannula 3.00 11/05/17 10:48 94 Nasal Cannula 5.00 11/05/17 10:00 111 31 127/82 (97) Nasal Cannula 3.00 11/05/17 09:00 105 13 118/96 (103) 90 Nasal Cannula 3.00 11/05/17 08:00 93 Nasal Cannula 3.00 11/05/17 08:00 94 17 132/88 (103) 92 Nasal Cannula 3.00 I & O 11/06/17 07:00 Intake Total 1020 ml Output Total 1475 ml Balance -455 ml General Appearance: WD/WN, Mild Distress, Thin HEENT: PERRL/EOMI, Normal ENT Inspection Neck: Normal Inspection Respiratory: Lungs Clear, Normal Breath Sounds, No Accessory Muscle Use, No Respiratory Distress Cardiovascular: No Edema, No Murmur, Irregularly Irregular Capillary Refill: Less Than 3 Seconds Extremity: Pedal Edema, Swelling, Other (chronic swelling and erythema of the lower extremities bilaterally. Right wrist is tender, swollen, hot, and erythematous. 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 Skin: Normal Color, Warm/Dry Lymphatic: No Adenopathy Results Lab Laboratory Tests 11/05/17 04:10 11/06/17 04:35 Assessment/Plan Assessment/Plan Sepsis -Continue Abx Pleuritic CP -Doubt cardiac etiology -Morphine, and Lidoderm patch Cellulitis of RUE Left pleural effusion s/p thoracentesis -Cytology pending - 40mg of IV lasix X 1 -change heparin gtt back to eliquis Hx of Afib RVR -Cardiology following will transfer to 4th floor with tele 233 Clinical Quality Measures DVT/VTE Risk/Contraindication: Risk Factor Score Per Nursin RFS Level Per Nursing on Admit: 4+=Very High SHITAL HUDSON DO Nov 06, 2017 07:26
--- NOTE | 2017-11-06 08:03 | Diagnostic Imaging Report ---
INDICATION: Sepsis. Cellulitis. COMPARISON: 11/05/2017. FINDINGS: Moderate bibasilar pleural effusions are present. There has been slight increase in left basilar pleural effusion since previous exam. There continues to be cardiomegaly. Pulmonary vasculature remains prominent. IMPRESSION: 1. Bilateral pleural effusions with slight increase in fluid volume on the left since previous exam. 2. There is apical redistribution of pulmonary vasculature consistent with some pulmonary edema. Dictated by: Dictated on workstation # [id number]
--- NOTE | 2017-11-06 08:14 | Progress Note-Hospitalist ---
Subjective HPI/CC On Admission Date Seen by Provider: Nov 06, 2017 Time Seen by Provider: 08:05 CC: Sepsis with AF w/RVR HPI: This is an 82-year-old white female known to me from prior hospitalist service admission due to supratherapeutic INR of 9 requiring vitamin K administration without bleeding sequela and UTI who was then placed at intermediate for skilled care who presented to the ER with fever and confusion. She was found to have atrial fibrillation with rapid ventricular response, left- sided pleural effusion superimposed with infiltrate and leukocytosis with sepsis. She was subsequently placed on Cardizem drip of which she had weaned off within placed again on the infusion due to return of rapid ventricular response. Patient is confused does not recall who I am and obvious cognitive decline and she maintains DO NOT RESUSCITATE status. Subjective/Events-last exam Pt reports feeling better and breathing better today. No complaints. Objective Exam Vital Signs Vital Signs Date Time Temp Pulse Resp B/P (MAP) Pulse Ox O2 Delivery O2 Flow Rate FiO2 11/02/17 16:30 100.3 110 18 143/129 (134) 97 Room Air 11/03/17 00:00 2.00 Capillary Refill : Less Than 3 Seconds General Appearance: No Apparent Distress, WD/WN Respiratory: Lungs Clear, No Respiratory Distress Cardiovascular: No Murmur, Irregularly Irregular Gastrointestinal: Normal Bowel Sounds, Non Tender, Soft Extremity: Non Tender, No Calf Tenderness, Pedal Edema Neurologic/Psychiatric: Alert, Oriented x3 Results/Procedures Lab Laboratory Tests 11/06/17 04:35 Assessment/Plan Assessment and Plan Assess & Plan/Chief Complaint A-fib with RVR Diagnosis/Problems Diagnosis/Problems (1) Pleural effusion, left Status: Acute Assessment & Plan: Pulm consulted, appreciate recs Thoracentesis 11/05- await culture on fluid (2) Sepsis Status: Resolved Assessment & Plan: On Merrem and Vanc temperature curve trended up yesterday (though no fever) berger cultures redrawn UA contaminated so no culture done Blood cx NGTD Flu negative Qualifiers: Qualified Codes: A41.9 - Sepsis, unspecified organism (3) Atrial fibrillation with RVR Status: Resolved Assessment & Plan: Remains in a-fib Continue Dilt Rate improved (4) Urinary tract infection Status: Resolved Assessment & Plan: Has history of chronic UTIs UA this time appears contaminated Continue abx Qualifiers: Qualified Codes: N39.0 - Urinary tract infection, site not specified; R31.9 - Hematuria, unspecified (5) Confusion Assessment & Plan: Appears baseline to me from her last admission Was oriented to major details but has poor short term recall KERWIN CARRERA MD Nov 06, 2017 08:14
[2017-11-06] MEDS: LIDOCAINE (LIDODERM) 5% PATCH TOP SCH (09:22)
[2017-11-06] MEDS: DILTIAZEM 120 MG (CARDIZEM CD) CAP PO SCH (09:22)
[2017-11-06] MEDS: APIXABAN 2.5 MG (ELIQUIS) TABLET PO SCH ×2 (09:22→20:30)
--- NOTE | 2017-11-06 10:31 | Cardiology Progress Note ---
Subjective Date Seen by Provider: Nov 06, 2017 Time Seen by Provider: 10:24 Subjective/Events-last exam Patient is in bed. no new complaints. Denies any chest pain. Objective-Cardiology Exam Last Set of Vital Signs Vital Signs 11/06/17 11/06/17 07:00 07:39 Pulse 96 Resp 13 B/P (MAP) 117/85 (96) Pulse Ox 95 O2 Delivery Nasal Cannula O2 Flow Rate 4.00 Capillary Refill : Less Than 3 Seconds I&O Intake and Output 11/06/17 00:00 Intake Total 1870 ml Output Total 1050 ml Balance 820 ml Intake Oral 870 ml IV Total 1000 ml Output Urine Total 1050 ml General: Alert, Oriented X3, Cooperative HEENT: Atraumatic, PERRLA Neck: Supple, No JVD, No Thyromegaly Lungs: Normal Air Movement, Other (wet rales at the bases) Heart: Normal S1, Normal S2, No Murmurs, Other (irregular) Abdomen: Normal Bowel Sounds, Soft, No Tenderness, No Hepatosplenomegaly, No Masses Extremities: No Clubbing, No Cyanosis, No Edema, Normal Pulses, No Tenderness/ Swelling Skin: No Rashes, No Breakdown, No Significant Lesion Neuro: Normal Speech, Strength at 5/5 X4 Ext, Normal Tone, Sensation Intact Psych/Mental Status: Mental Status NL, Mood NL Results Lab Laboratory Tests 11/06/17 04:35 A/P-Cardiology Admission Diagnosis Anterior chest wall pain Atrial fibrillation Pneumonia Pleural effusion Assessment/Plan Pleuritic chest pain, pleural effusion, s/p thoracentesis yesterday, management per Dr. Malhotra. Sepsis, pneumonia and UTI. receiving antibiotic, slowly improving. Continue to monitor. Back pain and shoulder pain, on pain meds Mild nonobstructive coronary artery disease, cardiac catheterization was done in 2009. Continue to monitor. Permanent atrial fibrillation, came in with rapid ventricular response, currently heart rate is controlled, back to oral Cardizem. Continue to monitor [id number] score is 4, yearly risk of stroke without oral anticoagulation is 4 percent, has history of intolerance to amiodarone or Multaq. On Eliquis. Continue to monitor. Valvular heart disease with Severe mitral regurgitation noted on echocardiogram on June 09, 2015, repeat 2-D echocardiogram March 2016 revealed mild MR, moderate AR. continue to monitor Pulmonary hypertension, most recent 2-D echocardiogram done March 2016 revealed PA pressure 30 mmHg. Continue to monitor. Hypertension, controlled. Monitor blood pressure. Hyperlipidemia, controlled. Maintained on Zocor 10 mg daily. Unable to increased Zocor due to interaction with diltiazem. Lipids are well controlled. Lipid/LFTs due again in 6 months. Mild bilateral nonobstructive carotid artery stenosis, last carotid ultrasound was done in August 2016. Continue to monitor. Anxiety Erythromelalgia, with reflex sympathetic dystrophy. Patient has been seen by Dr. Jama Fernandes in [place]. Peripheral neuropathy, patient is status post spinal stimulator. Clinical Quality Measures DVT/VTE Risk/Contraindication: Risk Factor Score Per Nursin RFS Level Per Nursing on Admit: 4+=Very High CK BATEMAN Nov 06, 2017 10:31
[2017-11-06] MEDS: VANCOMYCIN 750 MG/NS 250 ML IVPB IV SCH ×2 (10:43)
--- NOTE | 2017-11-06 13:49 | Cardiology Progress Note ---
Subjective Date Seen by Provider: Nov 06, 2017 Time Seen by Provider: 13:48 Subjective/Events-last exam patient is laying down in bed, complaining of pleuritic pain with inspiration. Still having some shortness of breath. Borderline hypotensive. Review of Systems General: No Chills, No Night Sweats, No Fatigue, No Malaise, No Appetite, No Other HEENT: No Head Aches, No Visual Changes, No Eye Pain, No Ear Pain, No Dysphasia , No Sinus Congestion, No Post Nasal Drip, No Sore Throat, No Other Pulmonary: Dyspnea, No Cough, Pleuritic Chest Pain, No Other Cardiovascular: No: Chest Pain, Palpitations, Orthopnea, Paroxysmal Noc. Dyspnea, Edema, Lt Headedness, Other Objective-Cardiology Exam Last Set of Vital Signs Vital Signs 11/06/17 12:00 Temp 97.2 Pulse 102 Resp 20 B/P (MAP) 110/59 (76) Pulse Ox 95 O2 Delivery Nasal Cannula O2 Flow Rate 1.00 Capillary Refill : Less Than 3 Seconds I&O Intake and Output 11/06/17 00:00 Intake Total 1870 ml Output Total 1050 ml Balance 820 ml Intake Oral 870 ml IV Total 1000 ml Output Urine Total 1050 ml General: Alert, Oriented X3, Cooperative HEENT: Atraumatic, PERRLA Neck: Supple, No JVD, No Thyromegaly Lungs: Normal Air Movement, Other (wet rales at the bases) Heart: Normal S1, Normal S2, No Murmurs, Other (irregular) Abdomen: Normal Bowel Sounds, Soft, No Tenderness, No Hepatosplenomegaly, No Masses Extremities: No Clubbing, No Cyanosis, No Edema, Normal Pulses, No Tenderness/ Swelling Skin: No Rashes, No Breakdown, No Significant Lesion Neuro: Normal Speech, Strength at 5/5 X4 Ext, Normal Tone, Sensation Intact Psych/Mental Status: Mental Status NL, Mood NL Results Lab Laboratory Tests 11/06/17 04:35 A/P-Cardiology Admission Diagnosis Anterior chest wall pain Atrial fibrillation Pneumonia Pleural effusion Assessment/Plan Pleuritic chest pain, pleural effusion, s/p thoracentesis yesterday, management per Dr. Malhotra. Sepsis, pneumonia and UTI. receiving antibiotic, slowly improving. Continue to monitor. Back pain and shoulder pain, on pain meds, managed by primary care physician Mild nonobstructive coronary artery disease, cardiac catheterization was done in 2009. Continue to monitor. Permanent atrial fibrillation, came in with rapid ventricular response, currently heart rate is controlled, back to oral Cardizem. Continue to monitor [id number] score is 4, yearly risk of stroke without oral anticoagulation is 4 percent, has history of intolerance to amiodarone or Multaq. On Eliquis. Continue to monitor. Valvular heart disease with Severe mitral regurgitation noted on echocardiogram on June 09, 2015, repeat 2-D echocardiogram March 2016 revealed mild MR, moderate AR. continue to monitor Pulmonary hypertension, most recent 2-D echocardiogram done March 2016 revealed PA pressure 30 mmHg. Continue to monitor. Hypertension, controlled. Monitor blood pressure. Hyperlipidemia, controlled. Maintained on Zocor 10 mg daily. Unable to increased Zocor due to interaction with diltiazem. Lipids are well controlled. Lipid/LFTs due again in 6 months. Mild bilateral nonobstructive carotid artery stenosis, last carotid ultrasound was done in August 2016. Continue to monitor. Anxiety Erythromelalgia, with reflex sympathetic dystrophy. Patient has been seen by Dr. Jama Fernandes in [place]. Peripheral neuropathy, patient is status post spinal stimulator. Clinical Quality Measures DVT/VTE Risk/Contraindication: Risk Factor Score Per Nursin RFS Level Per Nursing on Admit: 4+=Very High VIJAY SIDDIQUI MD Nov 06, 2017 13:49
--- NOTE | 2017-11-06 17:07 | Diagnostic Imaging Report ---
INDICATION: Central venous catheter evaluation. EXAMINATION: Portable upright AP view of the chest was obtained at 1558 hours. COMPARISON: Study of 11/06/2017. FINDINGS: There is mild generalized cardiomegaly. There is continued atelectasis and/or scarring in the parahilar regions with increased density again noted in the upper lobes, greater on the right. There is also blunting of the costophrenic sulci, greater on the left. Right upper extremity PICC is in place with tip projecting over the junction of superior vena cava and right atrium. IMPRESSION: Right upper extremity PICC reaches junction of superior vena cava and right atrium. Atelectasis, infiltrate and pleural fluid have not significantly changed. Dictated by: Dictated on workstation # [id number]
[2017-11-06] MEDS: PATCH REMOVAL TP SCH (20:30)
[2017-11-07] VITALS: BP 111/62
[2017-11-07] MEDS: RT-ALBUTEROL/IPRATROPIUM 3 ML (DUONEB) VIAL INH SCH ×2 (01:59→06:46)
[2017-11-07 04:29] VITALS: BP 94/71
[2017-11-07] MEDS: MEROPENEM 500 MG/D5W 100 ML IVPB IV SCH ×6 (05:31→21:26)
[2017-11-07] MEDS: IBUPROFEN 600 MG (MOTRIN) TAB PO SCH ×4 (05:31→23:55)
[2017-11-07 05:40] LABS: BASOPHILS % (AUTO) 0 % (0-10); EOSINOPHILS # (AUTO) 0.7 10^3/uL (0.0-0.3); EOSINOPHILS % (AUTO) 10 % (0-10); HEMATOCRIT 27 % (35-52); HEMOGLOBIN 9.4 G/DL (11.5-16.0); LYMPHOCYTES # (AUTO) 1.3 X 10^3 (1.0-4.0); MEAN CORPUSCULAR HEMOGLOBIN 32 PG (25-34); MEAN CORPUSCULAR HGB CONC 34 G/DL (32-36); MEAN CORPUSCULAR VOLUME 94 FL (80-99); MEAN PLATELET VOLUME 8.7 FL (7.4-10.4); MONOCYTES # (AUTO) 1.3 X 10^3 (0.0-1.0); NEUTROPHILS # (AUTO) 3.6 X 10^3 (1.8-7.8); NEUTROPHILS % (AUTO) 52 % (42-75); PLATELET COUNT 399 10^3/uL (130-400); RED BLOOD COUNT 2.92 10^6/uL (4.35-5.85); WHITE BLOOD COUNT 6.9 10^3/uL (4.3-11.0)
[2017-11-07 05:42] LABS: MONOCYTES % (AUTO) 17 % (0-12)
[2017-11-07 05:43] LABS: LYMPHOCYTES % (AUTO) 20 % (12-44)
[2017-11-07 06:11] LABS: BUN/CREATININE RATIO 14; CALCIUM 9.2 MG/DL (8.5-10.1); CARBON DIOXIDE 23 MMOL/L (21-32); CHLORIDE 109 MMOL/L (98-107); GFR ESTIMATED > 60; GLUCOSE 93 MG/DL (70-105); MAGNESIUM 1.7 MG/DL (1.8-2.4); POTASSIUM 3.3 MMOL/L (3.6-5.0); SODIUM 139 MMOL/L (135-145)
[2017-11-07 08:00] VITALS: BP 108/70
[2017-11-07] MEDS: DILTIAZEM 120 MG (CARDIZEM CD) CAP PO SCH (08:42)
[2017-11-07] MEDS: LIDOCAINE (LIDODERM) 5% PATCH TOP SCH (08:42)
[2017-11-07] MEDS: APIXABAN 2.5 MG (ELIQUIS) TABLET PO SCH ×2 (08:42→20:12)
--- NOTE | 2017-11-07 09:45 | Diagnostic Imaging Report ---
INDICATION: Sepsis. Frontal chest obtained at 4:40 a.m. and compared with 11/06/17. FINDINGS: There is cardiomegaly. There is some infiltrate in both lung bases as well as in both apices. There is no pneumothorax. There is a small amount of pleural fluid on the left side. Right-sided PICC line is unchanged. IMPRESSION: Unchanged bilateral infiltrates and left pleural effusion. Cardiomegaly again noted. No new abnormality. Dictated by: Dictated on workstation # [id number]
[2017-11-07] MEDS ORDERED: TROUGH ORDER-PHARMACY XX ONE (10:00)
[2017-11-07] MEDS ORDERED: RT-ALBUTEROL/IPRATROPIUM 3 ML (DUONEB) VIAL INH PRN (10:15)
--- NOTE | 2017-11-07 10:28 | Physical Therapy Evaluation ---
PT Evaluation-General Medical Diagnosis Admission Date Nov 02, 2017 at 18:39 Medical Diagnosis: UTI Onset Date: Nov 02, 2017 Therapy Diagnosis Therapy Diagnosis: general debility Height/Weight Height (Feet): 5 Height (Inches): 3.00 Weight (Pounds): 147 Weight (Ounces): 0.0 Precautions Precautions/Isolations: Fall Prevention, Standard Precautions Weight Bear Status Right Lower Extremity: Right Weight Bearing/Tolerated Left Lower Extremity: Left Weight Bearing/Tolerated Referral Physician: Brijesh Reason for Referral: Evaluation/Treatment Medical History Pertinent Medical History: Atrial Fib, GERD, HTN, Neuropathy Current History Patient recently dismiss from [place] to home. ED with chills and body aches and confusion Reviewed History: Yes Social History Home: [facility] Current Living Status: Alone Entry Into Home: Stairs With Railing Prior/[facility] FIM Prior Level of Function Functional Tripp Measure 0=Not Assessed/NA 4=Minimal Assistance 1=Total Assistance 5=Supervision or Setup 2=Maximal Assistance 6=Modified Tripp 3=Moderate Assistance 7=Complete Tripp Bed Mobility: 6 Transfers (B,C,W/C) (FIM): 6 Gait: 6 Locomotion: 6 PT Evaluation-Current Subjective Patient is up ad betty in room. Pain Numeric Pain Scale: 0-No Pain Location: No Pain Reported Objective Patient Orientation: Normal For Age Problem Solving: Good ROM/Strength ROM Lower Extremities bilateral LE WNL Strength Lower Extremities right knee flexion/extension 4/5; hip flexion 4/5; DF/PF 4/5; abd/add 4/5 left knee flexion/extension 4/5; hip flexion 4/5; DF/PF 4/5; abd/add 4/5 Integumentary/Posture Integumentary refer to nursing notes Bowel Incontinence: No Bladder Incontinence: No Posture kyphotic Neuromuscular (Tone, Coordination, Reflexes) grossly intact Sensory Vision: Wears Glasses Hearing: Functional Sensation Right Lower Extremit: Impaired Sensation Left Lower Extremity: Impaired Transfers Functional Tripp Measure 0=Not Assessed/NA 4=Minimal Assistance 1=Total Assistance 5=Supervision or Setup 2=Maximal Assistance 6=Modified Tripp 3=Moderate Assistance 7=Complete Tripp Transfers (B, C, W/C) (FIM): 6 Scootin Rollin Supine to/from Sit: 6 Sit to/from Stand: 6 Gait Mode of Locomotion: Walk Anticipated Mode of Locomotion: Walk Gait (FIM): 6 Distance (FIM): 3=150 ft Distance: 400' Gait Level of Assist: 6 Gait Assistive Device: FWW Comments/Gait Description safe and functional Balance Sitting Static: Normal Sitting Dynamic: Normal Standing Static: Normal Standing Dynamic: Normal Assessment/Needs 82 y.o. female, is currently at [facility] with all gross motor skills and does not require skilled PT intervention at this time. PT instructed patient and family to ambulate PRN in hallway. Rehab Potential: Good PT Plan Treatment/Plan Treatment Plan: Discontinue PT, goals met Treatment Plan: Other Treatment Duration: Nov 07, 2017 Frequency: 1 time per week Estimated Hrs Per Day: .25 hour per day Patient and/or Family Agrees t: Yes Time/GCodes Time In: 1000 Time Out: 1010 Total Billed Treatment Time: 10 Total Billed Treatment 1 visit EVModC 10 min ROGER POTTS PT Nov 07, 2017 10:28
[2017-11-07] MEDS ORDERED: VANCOMYCIN INJECTION 750 MG in NS (IVPB) 250 ML IV SCH (11:00)
--- NOTE | 2017-11-07 11:17 | Progress Note-Hospitalist ---
Subjective HPI/CC On Admission Date Seen by Provider: Nov 07, 2017 Time Seen by Provider: 10:00 CC: Sepsis with AF w/RVR HPI: This is an 82-year-old white female known to me from prior hospitalist service admission due to supratherapeutic INR of 9 requiring vitamin K administration without bleeding sequela and UTI who was then placed at snf for skilled care who presented to the ER with fever and confusion. She was found to have atrial fibrillation with rapid ventricular response, left- sided pleural effusion superimposed with infiltrate and leukocytosis with sepsis. She was subsequently placed on Cardizem drip of which she had weaned off within placed again on the infusion due to return of rapid ventricular response. Patient is confused does not recall who I am and obvious cognitive decline and she maintains DO NOT RESUSCITATE status. Subjective/Events-last exam Pt reports feeling much better today. Sitting in chair with no oxygen on. Denies any SOB. Discussed living situation. She lives alone in a home with an upstairs and downstairs and did express some concerns about being able to manage at home. She was very resistant to NH placement though. Would consider [facility] though. Objective Exam Vital Signs Vital Signs Date Time Temp Pulse Resp B/P (MAP) Pulse Ox O2 Delivery O2 Flow Rate FiO2 11/02/17 16:30 100.3 110 18 143/129 (134) 97 Room Air 11/03/17 00:00 2.00 Capillary Refill : Less Than 3 Seconds General Appearance: No Apparent Distress, WD/WN Respiratory: Lungs Clear, No Respiratory Distress Cardiovascular: Irregularly Irregular Neurologic/Psychiatric: Alert, Oriented x3, Normal Mood/Affect Results/Procedures Lab Laboratory Tests 11/07/17 05:30 Assessment/Plan Assessment and Plan Assess & Plan/Chief Complaint A-fib with RVR Diagnosis/Problems Diagnosis/Problems (1) Pleural effusion, left Status: Acute Assessment & Plan: Pulm consulted, appreciate recs Thoracentesis 11/05- culture- no growth (2) Sepsis Status: Resolved Assessment & Plan: On Merrem, Vanc DC-ed Tomorrow will be 7 days, can likely complete therapy tomorrow UA contaminated so no culture done Blood cx NGTD Flu negative Qualifiers: Qualified Codes: A41.9 - Sepsis, unspecified organism (3) Atrial fibrillation with RVR Status: Resolved Assessment & Plan: Remains in a-fib Continue Dilt Rate improved (4) Urinary tract infection Status: Resolved Assessment & Plan: Has history of chronic UTIs UA this time appears contaminated Continue abx as above for pna Qualifiers: Qualified Codes: N39.0 - Urinary tract infection, site not specified; R31.9 - Hematuria, unspecified (5) Confusion Assessment & Plan: Appears baseline to me from her last admission Was oriented to major details but has poor short term recall (6) Prophylactic measure Assessment & Plan: Saline lock Eliquis Heart Healthy Diet KERWIN CARRERA MD Nov 07, 2017 11:17 am
[2017-11-07 12:00] VITALS: BP 124/82
--- NOTE | 2017-11-07 12:58 | Cardiology Progress Note ---
Subjective Date Seen by Provider: Nov 07, 2017 Time Seen by Provider: 11:55 Subjective/Events-last exam Patient is sitting up in chair, reports feeling much improved. Denies any dyspnea. Review of Systems General: No Night Sweats, No Fatigue, No Malaise HEENT: No Visual Changes, No Dysphasia, No Sore Throat Pulmonary: No Dyspnea, No Cough Cardiovascular: No: Chest Pain, Palpitations, Paroxysmal Noc. Dyspnea, Edema Gastrointestinal: No: Nausea, Vomiting, Constipation Genitourinary: No Dysuria, No Frequency Musculoskeletal: No: neck pain, back pain Neurological: No: Weakness, Numbness, Change in speech, Confusion Objective-Cardiology Exam Last Set of Vital Signs Vital Signs 11/07/17 12:00 Temp 98.0 Pulse 100 Resp 18 B/P (MAP) 124/82 (96) Pulse Ox 93 O2 Delivery Nasal Cannula O2 Flow Rate 1.00 Capillary Refill : Less Than 3 Seconds I&O Intake and Output 11/07/17 00:00 Intake Total 1460 ml Output Total 1125 ml Balance 335 ml Intake Oral 1010 ml IV Total 450 ml Output Urine Total 1125 ml # Voids 2 General: Alert, Oriented X3, Cooperative HEENT: Atraumatic, PERRLA Neck: Supple, No JVD, No Thyromegaly Lungs: Clear to Auscultation, Normal Air Movement Heart: Normal S1, Normal S2, No Murmurs, Other (irregulary irregulary) Abdomen: Normal Bowel Sounds, Soft, No Tenderness, No Hepatosplenomegaly, No Masses Extremities: No Clubbing, No Cyanosis, No Edema, Normal Pulses, No Tenderness/ Swelling Skin: No Rashes, No Breakdown, No Significant Lesion Neuro: Normal Speech, Strength at 5/5 X4 Ext, Normal Tone, Sensation Intact Psych/Mental Status: Mental Status NL, Mood NL Results Lab Laboratory Tests 11/07/17 05:30 A/P-Cardiology Admission Diagnosis Anterior chest wall pain Atrial fibrillation Pneumonia Pleural effusion Assessment/Plan Pleuritic chest pain, pleural effusion, s/p thoracentesis. Improved, management per Dr. Malhotra. Sepsis, pneumonia and UTI. receiving antibiotic,improving. Continue to monitor. Back pain and shoulder pain, on pain meds, patient reports improvement, managed by primary care physician Mild nonobstructive coronary artery disease, cardiac catheterization was done in 2009. Continue to monitor. Permanent atrial fibrillation, came in with rapid ventricular response, currently heart rate is controlled, back to oral Cardizem. Continue to monitor [id number] score is 4, yearly risk of stroke without oral anticoagulation is 4 percent, has history of intolerance to amiodarone or Multaq. On Eliquis. Continue to monitor. Valvular heart disease with Severe mitral regurgitation noted on echocardiogram on June 09, 2015, repeat 2-D echocardiogram revealed mild to mod MR, mild AR. continue to monitor Pulmonary hypertension, most recent 2-D echocardiogram done March 2016 revealed PA pressure 30 mmHg. Continue to monitor. Hypertension, controlled. Monitor blood pressure. Hyperlipidemia, controlled. Maintained on Zocor 10 mg daily. Unable to increased Zocor due to interaction with diltiazem. Lipids are well controlled. Lipid/LFTs due again in 6 months. Mild bilateral nonobstructive carotid artery stenosis, last carotid ultrasound was done in August 2016. Continue to monitor. Anxiety Erythromelalgia, with reflex sympathetic dystrophy. Patient has been seen by Dr. Jama Fernandes in [place]. Peripheral neuropathy, patient is status post spinal stimulator. Clinical Quality Measures DVT/VTE Risk/Contraindication: Risk Factor Score Per Nursin RFS Level Per Nursing on Admit: 4+=Very High CK BATEMAN Nov 07, 2017 12:58
--- NOTE | 2017-11-07 13:02 | Cardiology Progress Note ---
Subjective Date Seen by Provider: Nov 07, 2017 Time Seen by Provider: 13:01 Subjective/Events-last exam Patient is sitting in a chair, feeling better, no new complaint, denied any chest pain. Review of Systems General: No Chills, No Night Sweats, No Fatigue, No Malaise, No Appetite, No Other HEENT: No Head Aches, No Visual Changes, No Eye Pain, No Ear Pain, No Dysphasia , No Sinus Congestion, No Post Nasal Drip, No Sore Throat, No Other Pulmonary: No Dyspnea, No Cough, No Pleuritic Chest Pain, No Other Cardiovascular: No: Chest Pain, Palpitations, Orthopnea, Paroxysmal Noc. Dyspnea, Edema, Lt Headedness, Other Objective-Cardiology Exam Last Set of Vital Signs Vital Signs 11/07/17 12:00 Temp 98.0 Pulse 100 Resp 18 B/P (MAP) 124/82 (96) Pulse Ox 93 O2 Delivery Nasal Cannula O2 Flow Rate 1.00 Capillary Refill : Less Than 3 Seconds I&O Intake and Output 11/07/17 00:00 Intake Total 1460 ml Output Total 1125 ml Balance 335 ml Intake Oral 1010 ml IV Total 450 ml Output Urine Total 1125 ml # Voids 2 General: Alert, Oriented X3, Cooperative HEENT: Atraumatic, PERRLA Neck: Supple, No JVD, No Thyromegaly Lungs: Clear to Auscultation, Normal Air Movement Heart: Normal S1, Normal S2, No Murmurs, Other (irregulary irregulary) Abdomen: Normal Bowel Sounds, Soft, No Tenderness, No Hepatosplenomegaly, No Masses Extremities: No Clubbing, No Cyanosis, No Edema, Normal Pulses, No Tenderness/ Swelling Skin: No Rashes, No Breakdown, No Significant Lesion Neuro: Normal Speech, Strength at 5/5 X4 Ext, Normal Tone, Sensation Intact Psych/Mental Status: Mental Status NL, Mood NL Results Lab Laboratory Tests 11/07/17 05:30 A/P-Cardiology Admission Diagnosis Anterior chest wall pain Atrial fibrillation Pneumonia Pleural effusion Assessment/Plan Pleuritic chest pain, pleural effusion, s/p thoracentesis. He shouldn't is feeling better, breathing better. Managed by Dr. Malhotra. Continue to monitor Sepsis, pneumonia and UTI. receiving antibiotic,improving. Continue to monitor. Back pain and shoulder pain, on pain meds, patient reports improvement, managed by primary care physician Mild nonobstructive coronary artery disease, cardiac catheterization was done in 2009. Continue to monitor. Permanent atrial fibrillation, came in with rapid ventricular response, currently heart rate is controlled, back to oral Cardizem. Continue to monitor [id number] score is 4, yearly risk of stroke without oral anticoagulation is 4 percent, has history of intolerance to amiodarone or Multaq. On Eliquis. Continue to monitor. Valvular heart disease with Severe mitral regurgitation noted on echocardiogram on June 09, 2015, repeat 2-D echocardiogram revealed mild to mod MR, mild AR. continue to monitor Pulmonary hypertension, most recent 2-D echocardiogram done March 2016 revealed PA pressure 30 mmHg. Continue to monitor. Hypertension, controlled. Monitor blood pressure. Hyperlipidemia, controlled. Maintained on Zocor 10 mg daily. Unable to increased Zocor due to interaction with diltiazem. Lipids are well controlled. Lipid/LFTs due again in 6 months. Mild bilateral nonobstructive carotid artery stenosis, last carotid ultrasound was done in August 2016. Continue to monitor. Anxiety Erythromelalgia, with reflex sympathetic dystrophy. Patient has been seen by Dr. Jama Fernandes in [place]. Peripheral neuropathy, patient is status post spinal stimulator. Clinical Quality Measures DVT/VTE Risk/Contraindication: Risk Factor Score Per Nursin RFS Level Per Nursing on Admit: 4+=Very High VIJAY SIDDIQUI MD Nov 07, 2017 13:02
--- NOTE | 2017-11-07 13:40 | Pulmonary Progress Note ---
Subjective Time Seen by Provider: 13:39 Subjective/Events-last exam No complications noted. Exam Exam Vital Signs Date Time Temp Pulse Resp B/P (MAP) Pulse Ox O2 Delivery O2 Flow Rate FiO2 11/07/17 12:00 98.0 100 18 124/82 (96) 93 Nasal Cannula 1.00 11/07/17 08:45 Room Air 11/07/17 08:00 97.9 93 20 108/70 (83) 92 Nasal Cannula 1.00 11/07/17 07:00 90 11/07/17 06:46 95 Nasal Cannula 1.00 11/07/17 04:29 98.2 99 16 94/71 (79) 94 Nasal Cannula 1.00 11/07/17 01:00 98 11/07/17 00:00 98.9 103 19 111/62 (78) 95 Nasal Cannula 1.00 11/06/17 23:26 95 Room Air 11/06/17 19:38 98.8 93 18 122/60 (80) 98 Room Air 11/06/17 19:00 106 11/06/17 18:54 94 Room Air 11/06/17 16:00 98.3 106 18 115/63 (80) 96 Room Air I & O 11/07/17 07:00 Intake Total 1660 ml Output Total 425 ml Balance 1235 ml General Appearance: No Apparent Distress, WD/WN HEENT: PERRL/EOMI, Normal ENT Inspection Neck: Normal Inspection Respiratory: Lungs Clear, No Respiratory Distress Cardiovascular: Irregularly Irregular Capillary Refill: Less Than 3 Seconds Extremity: Non Tender, No Calf Tenderness, Pedal Edema Neurologic/Psychiatric: Alert, Oriented x3, Normal Mood/Affect Skin: Normal Color, Warm/Dry Lymphatic: No Adenopathy Results Lab Laboratory Tests 11/06/17 04:35 11/07/17 05:30 Assessment/Plan Assessment/Plan Sepsis -Continue Abx Pleuritic CP -Doubt cardiac etiology -Morphine, and Lidoderm patch Cellulitis of RUE Left pleural effusion s/p thoracentesis -Cytology pending -eliquis Hx of Afib RVR -Cardiology following will transfer to 4th floor with tele 233 Clinical Quality Measures DVT/VTE Risk/Contraindication: Risk Factor Score Per Nursin RFS Level Per Nursing on Admit: 4+=Very High SHITAL HUDSON DO Nov 07, 2017 13:40
--- NOTE | 2017-11-07 15:42 | Occ Therapy Progress Note ---
Therapy Progress Note Order received and chart reviewed. Consulted with physical therapist on pt's needs, as PT has completed full assessment and did not feel pt. appropriate for skilled physical therapy treatment at this time. PT states that pt. is up ad betty with Mod I. States that pt. did well with all motor and functional assessment testing. PT felt that pt. had no OT needs at this time, as she is in room independently, in halls, and taking care of self functionally. Thank you for the consult and if pt. should have an ADL skill training need, or have a question, this therapist would be happy to come back for education. [id number] LUCÍA LONGO OT Nov 07, 2017 15:42
[2017-11-07 16:00] VITALS: BP 112/77
[2017-11-07 20:00] VITALS: BP 117/73
[2017-11-07] MEDS: PATCH REMOVAL TP SCH (20:12)
[2017-11-08] VITALS: BP 135/86
[2017-11-08] MEDS: IBUPROFEN 600 MG (MOTRIN) TAB PO SCH ×2 (05:35→10:58)
[2017-11-08] MEDS: MEROPENEM 500 MG/D5W 100 ML IVPB IV SCH ×2 (05:35)
--- NOTE | 2017-11-08 05:43 | Diagnostic Imaging Report ---
Indication: Cellulitis, sepsis Portable chest 4:44 AM Heart size and pulmonary vascular normal. There is improving aeration in the left upper lobe. There is some linear atelectasis or infiltrate that is increased in the right apex. There is some left basilar infiltrate or atelectasis. Impression: Left basilar infiltrate or atelectasis is unchanged from the previous day. There is increasing density in the right apex that could be worsening infiltrate or atelectasis. Dictated by: Dictated on workstation # [id number]
[2017-11-08 05:48] LABS: BASOPHILS % (AUTO) 1 % (0-10); EOSINOPHILS # (AUTO) 1.1 10^3/uL (0.0-0.3); EOSINOPHILS % (AUTO) 16 % (0-10); HEMATOCRIT 30 % (35-52); HEMOGLOBIN 10.3 G/DL (11.5-16.0); LYMPHOCYTES # (AUTO) 1.5 X 10^3 (1.0-4.0); LYMPHOCYTES % (AUTO) 23 % (12-44); MEAN CORPUSCULAR HEMOGLOBIN 32 PG (25-34); MEAN CORPUSCULAR HGB CONC 34 G/DL (32-36); MEAN CORPUSCULAR VOLUME 94 FL (80-99); MEAN PLATELET VOLUME 8.6 FL (7.4-10.4); MONOCYTES # (AUTO) 1.2 X 10^3 (0.0-1.0); MONOCYTES % (AUTO) 18 % (0-12); NEUTROPHILS # (AUTO) 2.9 X 10^3 (1.8-7.8); NEUTROPHILS % (AUTO) 43 % (42-75); PLATELET COUNT 430 10^3/uL (130-400); RED CELL DISTRIBUTION WIDTH 13.3 % (10.0-14.5); WHITE BLOOD COUNT 6.6 10^3/uL (4.3-11.0)
[2017-11-08 06:04] LABS: BUN/CREATININE RATIO 13; CALCIUM 8.9 MG/DL (8.5-10.1); CARBON DIOXIDE 23 MMOL/L (21-32); CHLORIDE 110 MMOL/L (98-107); CREATININE SERUM 0.75 MG/DL (0.60-1.30); GFR ESTIMATED > 60; GLUCOSE 86 MG/DL (70-105); MAGNESIUM 1.6 MG/DL (1.8-2.4); PHOSPHORUS 3.4 MG/DL (2.3-4.7); POTASSIUM 2.9 MMOL/L (3.6-5.0); SODIUM 144 MMOL/L (135-145)
--- NOTE | 2017-11-08 07:57 | Pulmonary Progress Note ---
Subjective Time Seen by Provider: 07:57 Subjective/Events-last exam pt is doing well no complications noted. Exam Exam Vital Signs Date Time Temp Pulse Resp B/P (MAP) Pulse Ox O2 Delivery O2 Flow Rate FiO2 11/08/17 00:00 97.3 107 16 135/86 (102) 92 Room Air 11/07/17 20:32 93 Room Air 11/07/17 20:00 98.4 99 18 117/73 (88) 94 Room Air 11/07/17 19:00 110 11/07/17 16:00 97.8 94 20 112/77 (89) 93 Room Air 11/07/17 13:00 87 11/07/17 12:00 98.0 100 18 124/82 (96) 93 Nasal Cannula 1.00 11/07/17 08:45 Room Air 11/07/17 08:00 97.9 93 20 108/70 (83) 92 Nasal Cannula 1.00 I & O 11/08/17 07:00 Intake Total 1240 ml Balance 1240 ml General Appearance: No Apparent Distress, WD/WN HEENT: PERRL/EOMI, Normal ENT Inspection Neck: Normal Inspection Respiratory: Lungs Clear, No Respiratory Distress Cardiovascular: Irregularly Irregular Capillary Refill: Less Than 3 Seconds Extremity: Non Tender, No Calf Tenderness, Pedal Edema Neurologic/Psychiatric: Alert, Oriented x3, Normal Mood/Affect Skin: Normal Color, Warm/Dry Lymphatic: No Adenopathy Results Lab Laboratory Tests 11/07/17 05:30 11/08/17 05:33 Assessment/Plan Assessment/Plan Pleuritic CP -Doubt cardiac etiology -Morphine, and Lidoderm patch Cellulitis of RUE Left pleural effusion s/p thoracentesis -Cytology is negative -eliquis Hx of Afib RVR -Cardiology following 232 Clinical Quality Measures DVT/VTE Risk/Contraindication: Risk Factor Score Per Nursin RFS Level Per Nursing on Admit: 4+=Very High SHITAL HUDSON DO Nov 08, 2017 07:57
[2017-11-08 08:00] VITALS: BP 150/85
--- NOTE | 2017-11-08 08:43 | Cardiology Progress Note ---
Subjective Date Seen by Provider: Nov 08, 2017 Time Seen by Provider: 08:42 Subjective/Events-last exam Patient is laying down in bed, having mild shortness of breath, no chest pain. Review of Systems General: No Chills, No Night Sweats, No Fatigue, No Malaise, No Appetite, No Other HEENT: No Head Aches, No Visual Changes, No Eye Pain, No Ear Pain, No Dysphasia , No Sinus Congestion, No Post Nasal Drip, No Sore Throat, No Other Pulmonary: Dyspnea, No Cough, No Pleuritic Chest Pain, No Other Cardiovascular: No: Chest Pain, Palpitations, Orthopnea, Paroxysmal Noc. Dyspnea, Edema, Lt Headedness, Other Objective-Cardiology Exam Last Set of Vital Signs Vital Signs 11/07/17 11/08/17 12:00 00:00 Temp 97.3 Pulse 107 Resp 16 B/P (MAP) 135/86 (102) Pulse Ox 92 O2 Delivery Room Air O2 Flow Rate 1.00 Capillary Refill : Less Than 3 Seconds I&O Intake and Output 11/08/17 00:00 Intake Total 1240 ml Balance 1240 ml Intake Oral 1040 ml IV Total 200 ml # Voids 4 # Bowel Movements 1 General: Alert, Oriented X3, Cooperative HEENT: Atraumatic, PERRLA Neck: Supple, No JVD, No Thyromegaly Lungs: Clear to Auscultation, Normal Air Movement Heart: Normal S1, Normal S2, No Murmurs, Other (irregulary irregulary) Abdomen: Normal Bowel Sounds, Soft, No Tenderness, No Hepatosplenomegaly, No Masses Extremities: No Clubbing, No Cyanosis, No Edema, Normal Pulses, No Tenderness/ Swelling Skin: No Rashes, No Breakdown, No Significant Lesion Neuro: Normal Speech, Strength at 5/5 X4 Ext, Normal Tone, Sensation Intact Psych/Mental Status: Mental Status NL, Mood NL Results Lab Laboratory Tests 11/08/17 05:33 A/P-Cardiology Admission Diagnosis Anterior chest wall pain Atrial fibrillation Pneumonia Pleural effusion Assessment/Plan Pleuritic chest pain, reporting improvement. No further episode of pain. Pleural effusion, s/p thoracentesis. He shouldn't is feeling better, breathing better. Managed by Dr. Malhotra. Continue to monitor Sepsis, pneumonia and UTI. receiving antibiotic, chest x-ray showed persistent infiltrate. Managed by Dr. Malhotra. Continue to monitor Back pain and shoulder pain, on pain meds, patient reports improvement, managed by primary care physician Mild nonobstructive coronary artery disease, cardiac catheterization was done in 2009. Continue to monitor. Permanent atrial fibrillation, came in with rapid ventricular response, currently heart rate is controlled, back to oral Cardizem. Continue to monitor [id number] score is 4, yearly risk of stroke without oral anticoagulation is 4 percent, has history of intolerance to amiodarone or Multaq. On Eliquis. Continue to monitor. Valvular heart disease with Severe mitral regurgitation noted on echocardiogram on June 09, 2015, repeat 2-D echocardiogram revealed mild to mod MR, mild AR. continue to monitor Pulmonary hypertension, most recent 2-D echocardiogram done March 2016 revealed PA pressure 30 mmHg. Continue to monitor. Hypertension, controlled. Monitor blood pressure. Hyperlipidemia, controlled. Maintained on Zocor 10 mg daily. Unable to increased Zocor due to interaction with diltiazem. Lipids are well controlled. Lipid/LFTs due again in 6 months. Mild bilateral nonobstructive carotid artery stenosis, last carotid ultrasound was done in August 2016. Continue to monitor. Anxiety Erythromelalgia, with reflex sympathetic dystrophy. Patient has been seen by Dr. Jama Fernandes in [place]. Peripheral neuropathy, patient is status post spinal stimulator. Clinical Quality Measures DVT/VTE Risk/Contraindication: Risk Factor Score Per Nursin RFS Level Per Nursing on Admit: 4+=Very High VIJAY SIDDIQUI MD Nov 08, 2017 08:43
[2017-11-08] MEDS ORDERED: KCL 20 MEQ TAB (K-DUR) PO NR (09:15)
--- NOTE | 2017-11-08 09:18 | Discharge Summary-Hospitalist ---
Diagnosis/Chief Complaint Date of Admission Nov 02, 2017 at 18:39 Date of Discharge Discharge Date: Nov 08, 2017 Admission Diagnosis Laboratory Tests 11/02/17 17:17 11/03/17 03:54 Assessment: Sepsis Atrial fibrillation with rapid ventricular response requiring Cardizem drip and cardiology consultation Left sided pleural effusion versus infiltrate Hyponatremia History of chronic UTIs and now acute on chronic Dementia Chronic kyphosis Renal insufficiency history Chronic debility requiring halfway placement Discharge Diagnosis A-fib with RVR (1) Pleural effusion, left Status: Acute Assessment & Plan: Pulm consulted, appreciate recs Thoracentesis 11/05- culture- no growth (2) Sepsis Status: Resolved Assessment & Plan: On Merrem- completed course today UA contaminated so no culture done Blood cx NGTD Flu negative (3) Atrial fibrillation with RVR Status: Resolved Assessment & Plan: Remains in a-fib Continue Dilt Rate improved (4) Urinary tract infection Status: Resolved Assessment & Plan: Has history of chronic UTIs UA this time appears contaminated Continue abx as above for pna (5) Confusion Assessment & Plan: Appears baseline to me from her last admission Was oriented to major details but has poor short term recall (6) Prophylactic measure Assessment & Plan: Saline lock Eliquis Heart Healthy Diet Discharge Summary Consultations Dr Vijaya Malhotra Discharge Physical Examination Allergies: Coded Allergies: levofloxacin (Unverified Allergy, Severe, CHEST TIGHTNESS, 11/05/17) sulfamethoxazole (Verified Allergy, Severe, CHEST TIGHTNESS, 03/15/10) trimethoprim (Verified Allergy, Severe, CHEST TIGHTNESS, 03/15/10) Penicillins (Verified Allergy, Unknown, RASH, HAS RECEIVED ANCEF W/O PROBLEM, 04/18/16) dronedarone (Verified Allergy, Unknown, 04/12/16) hydrochlorothiazide (Verified Allergy, Unknown, 04/12/16) metoprolol (Unverified Allergy, Unknown, 04/18/16) Tetracyclines (Verified Adverse Reaction, Intermediate, SEVERE HEARTBURN, 11/05/17) Severe Heartburn amiodarone (Verified Adverse Reaction, Intermediate, MADE HER COLD, 11/05/17 ) clindamycin (Verified Adverse Reaction, Mild, HEARTBURN, 11/05/17) Vitals & I&Os Vital Signs Date Time Temp Pulse Resp B/P (MAP) Pulse Ox O2 Delivery O2 Flow Rate FiO2 11/08/17 08:00 97.9 97 20 150/85 (106) 91 Room Air 11/07/17 12:00 1.00 Hospital Course Pt is an 82yoCF who was admitted for recurrent pneumonia and pleural effusion. She underwent thoracentesis with Dr. Malhotra and cultures were sent and showed no growth. She necessitated IV abx due to her recurrent infection and multiple allergies that precluded transition to oral antibiotics. On day of discharge she was requested to go home. She was offered an additional day of hospitalization but declined. I discussed with her daughter who will be stay with her and helping to facilitate her care at home during her transition back home. They were both comfortable going home with home health. Labs (last 24 hrs) Laboratory Tests 11/08/17 05:33: White Blood Count 6.6, Red Blood Count 3.20L, Hemoglobin 10.3L, Hematocrit 30L, Mean Corpuscular Volume 94, Mean Corpuscular Hemoglobin 32, Mean Corpuscular Hemoglobin Concent 34, Red Cell Distribution Width 13.3, Platelet Count 430H, Mean Platelet Volume 8.6, Neutrophils (%) (Auto) 43, Lymphocytes (%) (Auto) 23, Monocytes (%) (Auto) 18H, Eosinophils (%) (Auto) 16H, Basophils (%) (Auto) 1, Neutrophils # (Auto) 2.9, Lymphocytes # (Auto) 1.5, Monocytes # (Auto) 1.2H, Eosinophils # (Auto) 1.1H, Basophils # (Auto) 0.0, Sodium Level 144, Potassium Level 2.9L, Chloride Level 110H, Carbon Dioxide Level 23, Anion Gap 11, Blood Urea Nitrogen 10, Creatinine 0.75, Estimat Glomerular Filtration Rate > 60, BUN/ Creatinine Ratio 13, Glucose Level 86, Calcium Level 8.9, Phosphorus Level 3.4, Magnesium Level 1.6L Microbiology 11/05/17 Blood Culture - Preliminary, Resulted No growth 11/05/17 Gram Stain - Final, Resulted 11/05/17 Body Fluid Culture - Preliminary, Resulted No growth 11/02/17 MRSA Screen - Final, Complete MRSA not isolated 11/06/17 Urine Culture - Final, Complete NO GROWTH Pending Labs Discharge Home Medications: Active Scripts Active Reported Vitamin D3 (Cholecalciferol (Vitamin D3)) 2,000 Unit Capsule 2,000 Unit PO DAILY Eliquis (Apixaban) 2.5 Mg Tablet 2.5 Mg PO BID Centrum Silver Women Tablet (Multivits-Min/Iron/FA/Lutein) 1 Each Tablet 1 Tab PO DAILY Citracal + D Maximum Caplet (Calcium Citrate/Vitamin D3) 1 Each Tablet 1 Tab PO 1300 Methadone HCl 10 Mg Tablet 5 Mg PO DAILY PRN Livalo (Pitavastatin Calcium) 2 Mg Tablet 2 Mg PO HS TAKES 1/2 (4 MG) TABLET Magnesium (Magnesium Oxide) 250 Mg Tablet 250 Mg PO DAILY Probiotic (Lactobacillus Combination No.4) 1 Each Capsule 1 Cap PO DAILY Ketotifen Fumarate 5 Ml Drops 1 Drop OU DAILY PRN Flonase Allergy Relief (Fluticasone Propionate) 9.9 Ml [place].susp 1 [place] NSEACH DAILY PRN Sf 5000 Plus (Sodium Fluoride) 51 Gm Cream..g. DT HS Calci-Chew (Calcium Carbonate) 500 Mg Tab.chew 500 Mg PO DAILY Gabapentin 100 Mg Capsule 100 Mg PO TID Triazolam 0.25 Mg Tablet 0.25 Mg PO HS Cardizem LA (Diltiazem HCl) 120 Mg Tab.er.24h 120 Mg PO HS Potassium (Potassium Gluconate) 99 Mg Tablet 99 Mg PO HS Fish Oil 1,200 mg Fish Oil (Fish Oil/Dha/Epa) 1 Each Capsule 1,200 Mg PO TID Estrace Cream (Estradiol) 42.5 Gm Cream.appl TP HS Aleve (Naproxen Sodium) 220 Mg Capsule 440 Mg PO DAILY PRN Instructions to patient/family Please see electronic discharge instructions given to patient. Clinical Quality Measures DVT/VTE Risk/Contraindication: Risk Factor Score Per Nursin RFS Level Per Nursing on Admit: 4+=Very High Problem Qualifiers (1) Sepsis: Sepsis type: sepsis due to unspecified organism Qualified Codes: A41.9 - Sepsis, unspecified organism (2) Urinary tract infection: Urinary tract infection type: site unspecified Hematuria presence: with hematuria Qualified Codes: N39.0 - Urinary tract infection, site not specified ; R31.9 - Hematuria, unspecified KERWIN CARRERA MD Nov 08, 2017 9:18 am
--- NOTE | 2017-11-08 09:23 | D/C HH Face to Face Order ---
D/C Face to Face Orders Instructions for Patient Patient Instructions/FollowUp: Please follow up with your PCP early next week. If your symptoms return or worsen please return to the ER. Physician to follow Patient: Dr Reddy Discharge Diet for Home: Cardiac Diet, Low Sodium Diet Patient Data-Allergies,Ht & Wt Patient Allergies: Coded Allergies: levofloxacin (Unverified Allergy, Severe, CHEST TIGHTNESS, 11/05/17) sulfamethoxazole (Verified Allergy, Severe, CHEST TIGHTNESS, 03/15/10) trimethoprim (Verified Allergy, Severe, CHEST TIGHTNESS, 03/15/10) Penicillins (Verified Allergy, Unknown, RASH, HAS RECEIVED ANCEF W/O PROBLEM, 04/18/16) dronedarone (Verified Allergy, Unknown, 04/12/16) hydrochlorothiazide (Verified Allergy, Unknown, 04/12/16) metoprolol (Unverified Allergy, Unknown, 04/18/16) Tetracyclines (Verified Adverse Reaction, Intermediate, SEVERE HEARTBURN, 11/05/17) Severe Heartburn amiodarone (Verified Adverse Reaction, Intermediate, MADE HER COLD, 11/05/17 ) clindamycin (Verified Adverse Reaction, Mild, HEARTBURN, 11/05/17) Height (Feet): 5 Height (Inches): 3.00 Weight (Pounds): 146 Weight (Ounces): 2.0 Home Health Need/Face to Face Date of Face to Face: Nov 08, 2017 Clinical Findings: Generalized weakness and fatigue I have seen Pt [id number]: Yes Discharged To: Home Diagnosis/Conditions: Pneumonia Pleural Effusion Problems/Diagnosis/Condition: Patient is Homebound due to: Muscle weakness Homebound Status Due to the above stated illness, injury or surgical procedure (medical condition or diagnosis) and associated clinical findings, the patient is homebound because of his/her inability to leave home except with aid of a supportive device and/or person AND leaving the home requires a considerable and taxing effort or is medically contraindicated. Pt req the following assistanc: Aid of another person, Walker Home Health Nursing Orders Home Health Services Order: Nursing Services, Physical Therapy-Evaluate & Treat Home Health Infusion Therapy Line Start Date: Nov 06, 2017 Line Start Time: 1600 Line Type: PICC Site Location: Arm-Upper Therapy Orders Therapy Orders: Physical Therapy, PT to assess for OT Therapy Specific Orders: Eval assistive deivces, Teach enviro modifications/ safety, Gait training, Increase strength/endurance Certify Stmt I certify that this patient is under my care and that I, a nurse practitioner or a physician; a orthotics prosthetics assistant working with me, had a face to face encounter that - meets the physician face to face encounter requirements with this patient as dated. KERWIN CARRERA MD Nov 08, 2017 09:23
[2017-11-08] MEDS: APIXABAN 2.5 MG (ELIQUIS) TABLET PO SCH (10:58)
[2017-11-08] MEDS: DILTIAZEM 120 MG (CARDIZEM CD) CAP PO SCH (10:58)
[2017-11-08] MEDS: LIDOCAINE (LIDODERM) 5% PATCH TOP SCH (11:01)
[2017-11-08 14:45] VITALS: BP 150/85
--- NOTE | 2017-11-12 08:24 | Physician Query Clarification ---
PQ-Uncertain Diagnosis Admission/Discharge Admission Date: Nov 02, 2017 at 18:39 Discharge Date: Nov 08, 2017 at 14:45 The medical record reflects the following clinical scenario: History/Risk Factors: Dr Lilly gives the diagnosis of Pneumonia in his progress notes Dr Carrera gives the diagnosis of Pneumonia in the hospital course notes in the discharge summary Clinical Findings: Treatment: Vancomycin Question: Is Pneumonia a clinically valid diagnosis? Pneumonia was documented in the progress notes Vijaya and discharge summary Brijesh with no further documentation in the medical record. Please document a response below. PHYSICIAN RESPONSE Diagnosis clinically valid: Yes, Conditon resolved In responding to this query, please exercise your independent professional judgment. The purpose of this communication is to more accurately reflect the complexity of your patients condition. The fact that a question is asked does not imply that any particular answer is desired or expected. Thank you for your timely response to this clarification. Requestors name: [ ] Phone # [ ] THIS PHYSICIAN QUERY FORM IS A PERMANENT PART OF THE MEDICAL RECORD FIDENCIO GALINDO Nov 12, 2017 08:24 KERIWN CARRERA MD Nov 12, 2017 12:02
== END 2017-11-08 14:45 | disposition home health service (06) | DRG 871 ==
LOC: EDUNIT# 16:15 → ER 16:17 → ICU 18:39 → 4TH 11-06 10:55
PROVIDERS: ADMIT Internal Medicine; ATTEND Internal Medicine
PROC: 0W9B3ZX Drainage of Left Pleural Cavity, Percutaneous Approach, Diagnostic (ICD-10-PCS; principal; 2017-11-05)
DX: A41.9 Sepsis, unspecified organism (principal); J18.9 Pneumonia, unspecified organism; N39.0 Urinary tract infection, site not specified; R31.9 Hematuria, unspecified; L03.113 Cellulitis of right upper limb; J90 Pleural effusion, not elsewhere classified; I48.2 Chronic atrial fibrillation; R07.81 Pleurodynia; G90.523 Complex regional pain syndrome I of lower limb, bilateral; Z66 Do not resuscitate; E87.1 Hypo-osmolality and hyponatremia; I25.10 Atherosclerotic heart disease of native coronary artery without angina pectoris; I12.9 Hypertensive chronic kidney disease with stage 1 through stage 4 chronic kidney disease, or unspecified chronic kidney disease; N18.9 Chronic kidney disease, unspecified; F41.9 Anxiety disorder, unspecified; G62.9 Polyneuropathy, unspecified; M54.2 Cervicalgia; I08.0 Rheumatic disorders of both mitral and aortic valves; E78.5 Hyperlipidemia, unspecified; I73.81 Erythromelalgia; M40.209 Unspecified kyphosis, site unspecified; F03.90 Unspecified dementia, unspecified severity, without behavioral disturbance, psychotic disturbance, mood disturbance, and anxiety; Z79.01 Long term (current) use of anticoagulants; I27.20 Pulmonary hypertension, unspecified; I65.23 Occlusion and stenosis of bilateral carotid arteries; R53.81 Other malaise
CPT/HCPCS: 36415; 36569; 71045; 71275; 73110; 76937; 80048; 80053; 80202; 81000; 82550; 82945; 83605; 83615; 83735; 83880; 84100; 84157; 84484; 84550; 85025; 85610; 85652; 85730; 86141; 87040; 87070; 87081; 87088; 87205; 87804; 88112; 88305; 89051; 93005; 93041; 93306; 94640; 94664; 94760; 94761; 96361; 96365; 96367

== ENCOUNTER 2017-12-05 12:31 | Emergency (ER) | payer MEDICARE, OTHER ==
[~2017-12-05] VITALS: Ht 157.5 cm; Wt 57.2 kg
[~2017-12-05 12:31] MED LIST changes: +CALC-696 PO; +CHOL20003 PO; +MULT-1021 PO
[2017-12-05] MEDS ORDERED: ASPIRIN 81 MG CHEW (CHILDREN'S ASA) PO ONE (12:45)
--- NOTE | 2017-12-05 12:52 | ED Chest Pain ---
General Chief Complaint: Chest Pain Stated Complaint: CP Source: patient Exam Limitations: no limitations History of Present Illness Date Seen by Provider: Dec 05, 2017 Time Seen by Provider: 12:50 Initial Comments To ER with reports of chest pain. This chest pain is in the center of her chest and constant since yesterday. It has not abated at any point. It is worsened by deep breathing. She has a history of pneumonia recently and atrial fibrillation. She is on Eliquis. She is on Cardizem 120 mg by mouth daily. Timing/Duration: 24 hours Severity/Quality: moderate Location: central Radiation: no radiation Activities at Onset: none ASA po WARP TYING MACHINE TENDER: No NTG SL WARP TYING MACHINE TENDER: No Allergies and Home Medications Allergies Coded Allergies: levofloxacin (Unverified Allergy, Severe, CHEST TIGHTNESS, 11/05/17) sulfamethoxazole (Verified Allergy, Severe, CHEST TIGHTNESS, 03/15/10) trimethoprim (Verified Allergy, Severe, CHEST TIGHTNESS, 03/15/10) Penicillins (Verified Allergy, Unknown, RASH, HAS RECEIVED ANCEF W/O PROBLEM, 04/18/16) dronedarone (Verified Allergy, Unknown, 04/12/16) hydrochlorothiazide (Verified Allergy, Unknown, 04/12/16) metoprolol (Unverified Allergy, Unknown, 04/18/16) Tetracyclines (Verified Adverse Reaction, Intermediate, SEVERE HEARTBURN, 11/05/17) Severe Heartburn amiodarone (Verified Adverse Reaction, Intermediate, MADE HER COLD, 11/05/17 ) clindamycin (Verified Adverse Reaction, Mild, HEARTBURN, 11/05/17) Home Medications Apixaban 2.5 Mg Tablet, 2.5 MG PO BID, (Reported) Calcium Carbonate 500 Mg Tab.chew, 500 MG PO DAILY, (Reported) Calcium Citrate/Vitamin D3 1 Each Tablet, 1 TAB PO 1300, (Reported) Cefdinir 300 Mg Capsule, 300 MG PO BID Prescribed by: FIDEL SINCLAIR on 12/05/17 1411 Cholecalciferol (Vitamin D3) 2,000 Unit Capsule, 2,000 UNIT PO DAILY, (Reported) Diltiazem HCl 120 Mg Tab.er.24h, 120 MG PO HS, (Reported) Estradiol 42.5 Gm Cream.appl, TP HS, (Reported) Fish Oil/Dha/Epa 1 Each Capsule, 1,200 MG PO TID, (Reported) Fluticasone Propionate 9.9 Ml [place].susp, 1 [place] NSEACH DAILY PRN for ALLERGIES , (Reported) Gabapentin 100 Mg Capsule, 100 MG PO TID, (Reported) Ketotifen Fumarate 5 Ml Drops, 1 DROP OU DAILY PRN for ALLERGIES, (Reported) Lactobacillus Combination No.4 1 Each Capsule, 1 CAP PO DAILY, (Reported) Magnesium Oxide 250 Mg Tablet, 250 MG PO DAILY, (Reported) Methadone HCl 10 Mg Tablet, 5 MG PO DAILY PRN for FOOT PAIN, (Reported) Multivits-Min/Iron/FA/Lutein 1 Each Tablet, 1 TAB PO DAILY, (Reported) Naproxen Sodium 220 Mg Capsule, 440 MG PO DAILY PRN for PAIN-MILD, (Reported) Pitavastatin Calcium 2 Mg Tablet, 2 MG PO HS, (Reported) TAKES 1/2 (4 MG) TABLET Potassium Gluconate 99 Mg Tablet, 99 MG PO HS, (Reported) Sodium Fluoride 51 Gm Cream..g., DT HS, (Reported) Triazolam 0.25 Mg Tablet, 0.25 MG PO HS, (Reported) Patient Home Medication List Home Medication List Reviewed: Yes Review of Systems Constitutional: see HPI, No chills EENTM: No Symptoms Reported Respiratory: See HPI, Denies Cough, Other (pain with deep breathing) Cardiovascular: See HPI, Chest Pain Gastrointestinal: No Symptoms Reported Genitourinary: No Symptoms Reported Musculoskeletal: no symptoms reported Skin: no symptoms reported Psychiatric/Neurological: No Symptoms Reported Endocrine: No Symptoms Reported Past Bhzmdnr-Huwhro-Gfuplf Hx Patient Social History Alcohol Beverage of Choice: Other 2nd Hand Smoke Exposure: No Recent Foreign Travel: No Contact w/Someone Who Travel: No Recent Hopitalizations: No Immunizations Up To Date Tetanus Booster (TDap): Unknown Date of Pneumonia Vaccine: May 31, 2009 Date of Influenza Vaccine: Oct 17, 2017 Seasonal Allergies Seasonal Allergies: No Surgeries History of Surgeries: Yes (APPY-1963, "STIMULATOR" IN BACK, RIGHT ANKLE SURGERY ) Surgeries: Appendectomy, Hysterectomy, Neurological, Orthopedic Respiratory History of Respiratory Disorde: Yes (WHOOPING COUGH AT AGE 6YRS.) Cardiovascular History of Cardiac Disorders: Yes (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) Cardiac Disorders: Atrial Fibrillation, Hypertension Neurological History of Neurological Disord: Yes (NEUROPATHY ALL OVER, 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) Neurological Disorders: Neuropathy Reproductive System Hx Reproductive Disorders: No HIV/AIDS: No 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 Genitourinary History of Genitourinary Disor: Yes Genitourinary Disorders: Renal Failure, UTI-Chronic Gastrointestinal History of Gastrointestinal Di: Yes Gastrointestinal Disorders: Gastroesophageal Reflux, Chronic Constipation Musculoskeletal History of Musculoskeletal Dis: Yes (CHRONIC NECK PAIN, LUMBAR RADICULOPATHY) Musculoskeletal Disorders: Chronic Back Pain Endocrine History of Endocrine Disorders: No HEENT History of HEENT Disorders: No Loss of Vision: Bilateral Cancer History of Cancer: No Psychosocial History of Psychiatric Problem: Yes Behavioral Health Disorders: Anxiety Integumentary History of Skin or Integumenta: No Blood Transfusions History of Blood Disorders: No Adverse Reaction to a Blood Tr: No (N/A) Family Medical History Significant Family History: No Pertinent Family Hx Physical Exam Vital Signs Vital Signs - First Documented 12/05/17 12:39 Temp 98.3 Pulse 88 Resp 20 B/P (MAP) 143/103 (116) Pulse Ox 96 O2 Delivery Room Air Capillary Refill : General Appearance: No Apparent Distress, WD/WN, Chronically ill HEENT: PERRL/EOMI, TMs Normal Neck: Full Range of Motion, Normal Inspection Respiratory: No Accessory Muscle Use, No Respiratory Distress Cardiovascular: Regular Rate, Rhythm, Normal Peripheral Pulses Gastrointestinal: Normal Bowel Sounds, Non Tender, Soft Neurologic/Psychiatric: Alert, Oriented x3, Other (there is swelling and erythema of both lower extremities. Patient states that her bit more swollen than usual but they are always red like this and states this is from reflex sympathetic dystrophy.) Skin: Normal Color, Warm/Dry Focused Exam Evaluation Lactate Level Laboratory Tests 12/05/17 14:25: Lactic Acid Level 0.73 Lactic Acid Level Laboratory Tests Test 12/05/17 14:25 Lactic Acid Level 0.73 MMOL/L (0.50-2.00) Progress/Results/Core Measures Results/Orders Lab Results Laboratory Tests Test 12/05/17 12:55 12/05/17 14:25 Range/Units White Blood Count 13.3 H 4.3-11.0 10^3/uL Red Blood Count 3.48 L 4.35-5.85 10^6/uL Hemoglobin 11.2 L 11.5-16.0 G/DL Hematocrit 34 L 35-52 % Mean Corpuscular Volume 96 80-99 FL Mean Corpuscular Hemoglobin 32 25-34 PG Mean Corpuscular Hemoglobin Concent 33 32-36 G/DL Red Cell Distribution Width 14.6 H 10.0-14.5 % Platelet Count 420 H 130-400 10^3/uL Mean Platelet Volume 8.8 7.4-10.4 FL Neutrophils (%) (Auto) 77 H 42-75 % Lymphocytes (%) (Auto) 14 12-44 % Monocytes (%) (Auto) 9 0-12 % Eosinophils (%) (Auto) 1 0-10 % Basophils (%) (Auto) 0 0-10 % Neutrophils # (Auto) 10.2 H 1.8-7.8 X 10^3 Lymphocytes # (Auto) 1.9 1.0-4.0 X 10^3 Monocytes # (Auto) 1.1 H 0.0-1.0 X 10^3 Eosinophils # (Auto) 0.1 0.0-0.3 10^3/uL Basophils # (Auto) 0.0 0.0-0.1 10^3/uL Prothrombin Time 15.9 H 12.2-14.7 SEC INR Comment 1.3 0.8-1.4 Activated Partial Thromboplast Time 31 24-35 SEC Sodium Level 139 135-145 MMOL/L Potassium Level 3.8 3.6-5.0 MMOL/L Chloride Level 102 98-107 MMOL/L Carbon Dioxide Level 28 21-32 MMOL/L Anion Gap 9 5-14 MMOL/L Blood Urea Nitrogen 21 H 7-18 MG/DL Creatinine 0.81 0.60-1.30 MG/DL Estimat Glomerular Filtration Rate > 60 BUN/Creatinine Ratio 26 Glucose Level 101 70-105 MG/DL Calcium Level 9.5 8.5-10.1 MG/DL Magnesium Level 1.9 1.8-2.4 MG/DL Total Bilirubin 0.6 0.1-1.0 MG/DL Aspartate Amino Transf (AST/SGOT) 33 5-34 U/L Alanine Aminotransferase (ALT/SGPT) 32 0-55 U/L Alkaline Phosphatase 156 H 40-136 U/L Myoglobin 72.8 10.0-92.0 NG/ML Troponin I < 0.30 <0.30 NG/ML Total Protein 6.8 6.4-8.2 GM/DL Albumin 3.3 3.2-4.5 GM/DL Lactic Acid Level 0.73 0.50-2.00 MMOL/L My Orders Orders - FIDEL SINCLAIR APRN Cbc With Automated Diff (12/05/17 12:40) Magnesium (12/05/17 12:40) Chest 1 View, Ap/Pa Only (12/05/17 12:40) Ekg Tracing (12/05/17 12:40) Cardiac Profile 1 (12/05/17 12:40) Comprehensive Metabolic Panel (12/05/17 12:40) Myoglobin Serum (12/05/17 12:40) Protime With Inr (12/05/17 12:40) Partial Thromboplastin Time (12/05/17 12:40) O2 (12/05/17 12:40) Monitor-Rhythm Ecg Trace Only (12/05/17 12:40) Aspirin Chewable Tablet (Baby Aspirin Ch (12/05/17 12:45) Saline Lock/Iv-Start (12/05/17 12:40) Diltiazem Cd 24 Hr Capsule (Cardizem Cd (12/05/17 13:00) Blood Culture (12/05/17 14:13) Lactic Acid Analyzer (12/05/17 14:13) Ceftriaxone Injection (Rocephin Injectio (12/05/17 14:15) Medications Given in ED Vital Signs/I&O Vital Sign - Last 12Hours 12/05/17 12/05/17 12/05/17 12/05/17 12:39 13:06 16:00 16:11 Temp 98.3 98.3 98.3 Pulse 88 88 88 Resp 20 20 20 B/P (MAP) 143/103 (116) 143/103 143/103 (116) Pulse Ox 96 99 99 99 O2 Delivery Room Air Room Air Room Air Diagnostic Imaging Diagonstic Imaging: Xray Comments NAME: PURVI [facility] REC#: [id number] PT STATUS: REG ER : 1935 PHYSICIAN: FIDEL SINCLAIR APRN ADMIT DATE: 12/05/17/ER Draft Date of Exam:12/05/17 CHEST 1 VIEW, AP/PA ONLY INDICATION: Chest pain. COMPARISON: 11/08/2017. FINDINGS: Blunting of the bilateral costophrenic angles is present and greater on the left. No pneumothorax. Heart is enlarged. Left basilar consolidations are present. IMPRESSION: 1. Sjqoi-br-plrpdzch left and small right pleural effusions are present. 2. Left basilar pulmonary opacities persist and could represent relaxation atelectasis due to effusion. However, pneumonia could have a similar appearance. Dictated on workstation # [id number] Dict: 12/05/17 1344 Trans: 12/05/17 1351 [facility] [id number] Interpreted by: ZANDER BRAR MD Electronically signed by: Departure Communication (Admissions) Progress Notes I discussed the case with Dr. Lilly at 1408. From cardiac standpoint he is okay with discharging to home since her heart rate has come down after being given Cardizem here, she has known atrial fibrillation and is on Eliquis. Despite 24 hours of persistent pain her troponin remains negative and to support this her pain is pleuritic in nature worsened with deep breathing. She is afebrile, not hypoxic, blood pressure is adequate, this would be appropriate to try outpatient therapy on. Her curb 65 pneumonia score is 1, she received that one point for being over 65 years old. She would be appropriate candidate for outpatient therapy. Impression Impression: Primary Impression: Left lower lobe pneumonia Disposition: HOME, SELF-CARE Condition: Stable Departure-Patient Inst. Decision time for Depature: 14:10 Referrals: SERGEI ROMAN MD (PCP/Family) Primary Care Physician Patient Instructions: Chest Pain That Is Not Caused by the Heart (DC) Add. Discharge Instructions: 1. Take antibiotics as directed 2. Return to the emergency room for any shortness of breath, worsening pain, difficulty breathing or other concerns. Follow-up with your doctor on Saturday for recheck. All discharge instructions reviewed with patient and/or family. Voiced understanding. Scripts Cefdinir (Cefdinir) 300 Mg Capsule 300 MG PO BID, #14 CAP Prov: FIDEL SINCLAIR APRN 12/05/17 Copy Copies To 1: SERGEI ROMAN MD, PETER J APRN Dec 05, 2017 12:52
[2017-12-05] MEDS ORDERED: DILTIAZEM 180 MG (CARDIZEM CD) CAP PO ONE (13:00)
[2017-12-05 13:03] LABS: BASOPHILS % (AUTO) 0 % (0-10); EOSINOPHILS # (AUTO) 0.1 10^3/uL (0.0-0.3); EOSINOPHILS % (AUTO) 1 % (0-10); HEMATOCRIT 34 % (35-52); HEMOGLOBIN 11.2 G/DL (11.5-16.0); LYMPHOCYTES # (AUTO) 1.9 X 10^3 (1.0-4.0); LYMPHOCYTES % (AUTO) 14 % (12-44); MEAN CORPUSCULAR HEMOGLOBIN 32 PG (25-34); MEAN CORPUSCULAR HGB CONC 33 G/DL (32-36); MEAN CORPUSCULAR VOLUME 96 FL (80-99); MEAN PLATELET VOLUME 8.8 FL (7.4-10.4); MONOCYTES # (AUTO) 1.1 X 10^3 (0.0-1.0); MONOCYTES % (AUTO) 9 % (0-12); NEUTROPHILS # (AUTO) 10.2 X 10^3 (1.8-7.8); NEUTROPHILS % (AUTO) 77 % (42-75); PLATELET COUNT 420 10^3/uL (130-400); RED BLOOD COUNT 3.48 10^6/uL (4.35-5.85); RED CELL DISTRIBUTION WIDTH 14.6 % (10.0-14.5); WHITE BLOOD COUNT 13.3 10^3/uL (4.3-11.0)
[2017-12-05 13:20] LABS: INR 1.3 (0.8-1.4); PROTHROMBIN TIME PATIENT 15.9 SEC (12.2-14.7)
[2017-12-05 13:29] LABS: ALANINE AMINOTRANSFERASE 32 U/L (0-55); ALBUMIN 3.3 GM/DL (3.2-4.5); ALKALINE PHOSPHATASE 156 U/L (40-136); BILIRUBIN,TOTAL 0.6 MG/DL (0.1-1.0); BUN/CREATININE RATIO 26; CALCIUM 9.5 MG/DL (8.5-10.1); CARBON DIOXIDE 28 MMOL/L (21-32); CHLORIDE 102 MMOL/L (98-107); CREATININE SERUM 0.81 MG/DL (0.60-1.30); GFR ESTIMATED > 60; GLUCOSE 101 MG/DL (70-105); MAGNESIUM 1.9 MG/DL (1.8-2.4); POTASSIUM 3.8 MMOL/L (3.6-5.0); SODIUM 139 MMOL/L (135-145); TOTAL PROTEIN 6.8 GM/DL (6.4-8.2)
[2017-12-05 13:38] LABS: MYOGLOBIN SERUM 72.8 NG/ML (10.0-92.0)
--- NOTE | 2017-12-05 13:51 | Diagnostic Imaging Report ---
INDICATION: Chest pain. COMPARISON: 11/08/2017. FINDINGS: Blunting of the bilateral costophrenic angles is present and greater on the left. No pneumothorax. Heart is enlarged. Left basilar consolidations are present. IMPRESSION: 1. Ahoyw-az-sdqsjwdo left and small right pleural effusions are present. 2. Left basilar pulmonary opacities persist and could represent relaxation atelectasis due to effusion. However, pneumonia could have a similar appearance. Dictated by: Dictated on workstation # [id number]
[2017-12-05] MEDS ORDERED: CEFD300C3 PO (14:11)
[2017-12-05] MEDS ORDERED: cefTRIAXone INJECTION 1,000 MG in NS (IVPB) 100 ML IV ONE (14:15)
[2017-12-05 16:11] VITALS: BP 143/103
== END 2017-12-05 16:18 | disposition home or self-care (01) ==
LOC: EDUNIT# 12:31 → ER 12:33
DX: J18.1 Lobar pneumonia, unspecified organism (principal); I48.91 Unspecified atrial fibrillation; I10 Essential (primary) hypertension; K21.9 Gastro-esophageal reflux disease without esophagitis; F41.9 Anxiety disorder, unspecified; Z87.19 Personal history of other diseases of the digestive system; Z87.440 Personal history of urinary (tract) infections; Z87.01 Personal history of pneumonia (recurrent); Z88.0 Allergy status to penicillin; Z88.1 Allergy status to other antibiotic agents; Z88.2 Allergy status to sulfonamides; Z88.8 Allergy status to other drugs, medicaments and biological substances; Z79.01 Long term (current) use of anticoagulants; Z90.49 Acquired absence of other specified parts of digestive tract; Z90.710 Acquired absence of both cervix and uterus
CPT/HCPCS: 36415; 71045; 80053; 83605; 83735; 83874; 84484; 85025; 85610; 85730; 87040; 93005; 93041; 96365

== ENCOUNTER 2017-12-29 10:03 | Emergency (ER) | payer MEDICARE, OTHER ==
[~2017-12-29] VITALS: Ht 160 cm; Wt 56.7 kg
[~2017-12-29 10:03] MED LIST changes: +CEFD300C3 PO; +FLUT9.9S NS; -FLUT9.9S NSEACH
[2017-12-29 10:41] LABS: BASOPHILS % (AUTO) 0 % (0-10); EOSINOPHILS % (AUTO) 0 % (0-10); HEMATOCRIT 32 % (35-52); HEMOGLOBIN 10.5 G/DL (11.5-16.0); LYMPHOCYTES # (AUTO) 1.5 X 10^3 (1.0-4.0); LYMPHOCYTES % (AUTO) 8 % (12-44); MEAN CORPUSCULAR HEMOGLOBIN 31 PG (25-34); MEAN CORPUSCULAR HGB CONC 33 G/DL (32-36); MEAN CORPUSCULAR VOLUME 94 FL (80-99); MEAN PLATELET VOLUME 8.3 FL (7.4-10.4); MONOCYTES # (AUTO) 1.4 X 10^3 (0.0-1.0); MONOCYTES % (AUTO) 8 % (0-12); NEUTROPHILS % (AUTO) 84 % (42-75); PLATELET COUNT 539 10^3/uL (130-400); RED BLOOD COUNT 3.42 10^6/uL (4.35-5.85); RED CELL DISTRIBUTION WIDTH 14.4 % (10.0-14.5); WHITE BLOOD COUNT 17.9 10^3/uL (4.3-11.0)
[2017-12-29] MEDS ORDERED: ASPIRIN 81 MG CHEW (CHILDREN'S ASA) PO ONE (10:45)
[2017-12-29 10:58] LABS: INR 3.1 (0.8-1.4); PROTHROMBIN TIME PATIENT 31.6 SEC (12.2-14.7)
[2017-12-29 11:05] LABS: BURR CELLS SLIGHT; CRENATED RBC SLIGHT; LYMPHOCYTES % (MANUAL) 5 %; MONOCYTES % (MANUAL) 8 %; NEUTROPHILS % (MANUAL) 87 %
[2017-12-29 11:06] LABS: ALANINE AMINOTRANSFERASE 28 U/L (0-55); ALBUMIN 3.3 GM/DL (3.2-4.5); ALKALINE PHOSPHATASE 184 U/L (40-136); BILIRUBIN,TOTAL 0.4 MG/DL (0.1-1.0); BUN/CREATININE RATIO 30; CARBON DIOXIDE 26 MMOL/L (21-32); CHLORIDE 100 MMOL/L (98-107); CREATININE SERUM 0.89 MG/DL (0.60-1.30); GFR ESTIMATED > 60; GLUCOSE 116 MG/DL (70-105); MAGNESIUM 1.8 MG/DL (1.8-2.4); POTASSIUM 4.1 MMOL/L (3.6-5.0); SODIUM 137 MMOL/L (135-145); TOTAL PROTEIN 6.7 GM/DL (6.4-8.2)
[2017-12-29 11:12] LABS: MYOGLOBIN SERUM 60.9 NG/ML (10.0-92.0)
--- NOTE | 2017-12-29 11:20 | Diagnostic Imaging Report ---
INDICATION: Left rib pain with cough and pharyngitis. FINDINGS: AP and oblique views of the left ribs are obtained. There is no evidence of displaced rib fracture. No pneumothorax or pleural reaction is identified. There is blunting of left costophrenic sulcus which may indicate small left pleural effusion. IMPRESSION: No radiographic evidence of displaced left rib fracture. There may be mild left pleural fluid or thickening noted. Dictated by: Dictated on workstation # [id number]
--- NOTE | 2017-12-29 11:21 | Diagnostic Imaging Report ---
CLINICAL INDICATION: Patient with left axillary rib pain and cough and sore throat. Exam: Chest x-ray PA and lateral views. Comparisons: Chest x-ray dated 12/05/2017. Findings: There is slight improved aeration of the left lung base with continued mild to moderate left basilar consolidation and airspace opacification. There is a small left pleural effusion which has decreased in size. There is stable bilateral apical pleural-parenchymal thickening/scarring. There is no right pleural effusion. There is no pneumothorax. There is discoid atelectasis in the left upper lung field region. Stable cardiomegaly with no significant pulmonary vascular congestion. Again seen neural stimulator electrode overlying the lower thoracic spine region. There is dextroscoliosis of the thoracolumbar spine with multilevel vertebral body spurs. IMPRESSION: 1: Interval slight improved aeration of the left lung base with continued left lung base atelectasis versus infiltrate. There is interval slight discoid atelectasis in the left upper lobe. 2: There is a small left pleural effusion which has decreased in size. 3: The remainder of this exam shows no significant interval change compared to the prior study of comparison. Dictated by: Dictated on workstation # [id number]
[2017-12-29] MEDS ORDERED: CEFD300C3 PO (11:44)
[2017-12-29] MEDS ORDERED: AZIT250T12 PO (11:44)
--- NOTE | 2017-12-29 11:44 | ED General ---
General Chief Complaint: Chest Pain Stated Complaint: POSS PNEUMONIA Nursing Triage Note: ARRIVED VIA AMB TO ROOM 07. STATES SHE HAS PNEUMONIA FOR THE 3RD TIME SINCE OCT. STATES SHE STARTED HAVING LEFT SIDED CHEST PAIN UNDERNEATH HER BREAST LAST NIGHT AND THIS IS HOW HER PNEUMONIA STARTS OUT. STATES IT IS NOT HER HEART. Nursing Sepsis Screen: No Definite Risk Source of Information: Patient Exam Limitations: No Limitations History of Present Illness Date Seen by Provider: Dec 29, 2017 Time Seen by Provider: 10:08 Initial Comments This 82 year old woman presents to the ER suspecting that she has recurrent pneumonia. She complains of left lateral chest wall pain and tenderness. She was admitted in October for sepsis and was seen again in the ER in November for pneumonia. She had a left pleural effusion drained with a negative culture. Pain is worse with deep breathing and radiates beneath the left breast. She is on Warfarin for PAF and is on steroids for arthritis. She denies fever and has rare cough. Review of chart notes a cath in 2009 noting no obstructive disease. Echo in 2016 notes an EF of 50%. She has valvular disease. She denies any trauma to the chest. Allergies and Home Medications Allergies Coded Allergies: levofloxacin (Unverified Allergy, Severe, CHEST TIGHTNESS, 11/05/17) sulfamethoxazole (Verified Allergy, Severe, CHEST TIGHTNESS, 03/15/10) trimethoprim (Verified Allergy, Severe, CHEST TIGHTNESS, 03/15/10) Penicillins (Verified Allergy, Unknown, RASH, HAS RECEIVED ANCEF W/O PROBLEM, 04/18/16) dronedarone (Verified Allergy, Unknown, 04/12/16) hydrochlorothiazide (Verified Allergy, Unknown, 04/12/16) metoprolol (Unverified Allergy, Unknown, 04/18/16) Tetracyclines (Verified Adverse Reaction, Intermediate, SEVERE HEARTBURN, 11/05/17) Severe Heartburn amiodarone (Verified Adverse Reaction, Intermediate, MADE HER COLD, 11/05/17 ) clindamycin (Verified Adverse Reaction, Mild, HEARTBURN, 11/05/17) Home Medications Apixaban 2.5 Mg Tablet, 2.5 MG PO BID, (Reported) Azithromycin 250 Mg Tablet, 250 MG PO UD TAKE 2 TABLETS ON DAY ONE THEN TAKE 1 TABLET DAILY FOR FOUR MORE DAYS Prescribed by: KONRAD CORDERO on 12/29/17 1144 Calcium Carbonate 500 Mg Tab.chew, 500 MG PO DAILY, (Reported) Calcium Citrate/Vitamin D3 1 Each Tablet, 1 TAB PO 1300, (Reported) Cefdinir 300 Mg Capsule, 300 MG PO BID Prescribed by: FIDEL SINCLAIR on 12/05/17 1411 Cefdinir 300 Mg Capsule, 300 MG PO BID Prescribed by: KONRAD CORDERO on 12/29/17 1144 Cholecalciferol (Vitamin D3) 2,000 Unit Capsule, 2,000 UNIT PO DAILY, (Reported) Diltiazem HCl 120 Mg Tab.er.24h, 120 MG PO HS, (Reported) Estradiol 42.5 Gm Cream.appl, TP HS, (Reported) Fish Oil/Dha/Epa 1 Each Capsule, 1,200 MG PO TID, (Reported) Fluticasone Propionate 9.9 Ml [place].susp, 1 SPRAY NSEACH DAILY PRN for ALLERGIES , (Reported) Gabapentin 100 Mg Capsule, 100 MG PO TID, (Reported) Ketotifen Fumarate 5 Ml Drops, 1 DROP OU DAILY PRN for ALLERGIES, (Reported) Lactobacillus Combination No.4 1 Each Capsule, 1 CAP PO DAILY, (Reported) Magnesium Oxide 250 Mg Tablet, 250 MG PO DAILY, (Reported) Methadone HCl 10 Mg Tablet, 5 MG PO DAILY PRN for FOOT PAIN, (Reported) Multivits-Min/Iron/FA/Lutein 1 Each Tablet, 1 TAB PO DAILY, (Reported) Naproxen Sodium 220 Mg Capsule, 440 MG PO DAILY PRN for PAIN-MILD, (Reported) Pitavastatin Calcium 2 Mg Tablet, 2 MG PO HS, (Reported) TAKES 1/2 (4 MG) TABLET Potassium Gluconate 99 Mg Tablet, 99 MG PO HS, (Reported) Sodium Fluoride 51 Gm Cream..g., DT HS, (Reported) Triazolam 0.25 Mg Tablet, 0.25 MG PO HS, (Reported) Patient Home Medication List Home Medication List Reviewed: Yes Constitutional: no symptoms reported EENTM: no symptoms reported Respiratory: see HPI Cardiovascular: no symptoms reported Gastrointestinal: no symptoms reported Genitourinary: no symptoms reported : No Musculoskeletal: see HPI Skin: no symptoms reported Psychiatric/Neurological: No Symptoms Reported Hematologic/Lymphatic: No Symptoms Reported Past Oblmbws-Oopphj-Sxgbff Hx Patient Social History Alcohol Use: Occasionally Uses Alcohol Beverage of Choice: Other Recreational Drug Use: No Smoking Status: Never a Smoker 2nd Hand Smoke Exposure: No Recent Foreign Travel: No Contact w/Someone Who Travel: No Recent Infectious Disease Expo: No Recent Hopitalizations: No Immunizations Up To Date Tetanus Booster (TDap): Unknown Date of Pneumonia Vaccine: May 31, 2009 Date of Influenza Vaccine: Oct 17, 2017 Seasonal Allergies Seasonal Allergies: No Surgeries History of Surgeries: Yes (APPY-1964, "STIMULATOR" IN BACK, RIGHT ANKLE SURGERY ) Surgeries: Appendectomy, Hysterectomy, Neurological, Orthopedic Respiratory History of Respiratory Disorde: Yes (WHOOPING COUGH AT AGE 6YRS.; PULMONARY HTN , left pleural effusion) Respiratory Disorders: Pneumonia Cardiovascular History of Cardiac Disorders: Yes (MITRAL AND AORTIC VALVE DISEASE; MILD CAROTID DISEASE) Cardiac Disorders: Atrial Fibrillation, Hypertension, Valvular Heart Disease Neurological History of Neurological Disord: Yes ("NEUROPATHY ALL OVER"; RSD) Neurological Disorders: Neuropathy Reproductive System Hx Reproductive Disorders: No HIV/AIDS: No HEAD PASTRY CHEF History: Hysterectomy Genitourinary History of Genitourinary Disor: Yes Genitourinary Disorders: Renal Failure, UTI-Chronic Gastrointestinal History of Gastrointestinal Di: Yes Gastrointestinal Disorders: Gastroesophageal Reflux, Chronic Constipation Musculoskeletal History of Musculoskeletal Dis: Yes (CHRONIC NECK PAIN, LUMBAR RADICULOPATHY; KYPHOSIS) Musculoskeletal Disorders: Osteoporosis, Chronic Back Pain Endocrine History of Endocrine Disorders: No HEENT History of HEENT Disorders: No Loss of Vision: Bilateral Cancer History of Cancer: No Psychosocial History of Psychiatric Problem: Yes Behavioral Health Disorders: Anxiety Integumentary History of Skin or Integumenta: No Blood Transfusions History of Blood Disorders: No Adverse Reaction to a Blood Tr: No (N/A) Family Medical History Significant Family History: No Pertinent Family Hx Physical Exam Vital Signs Vital Signs - First Documented 12/29/17 10:10 Temp 97.7 Pulse 107 Resp 16 B/P (MAP) 156/124 (135) Pulse Ox 99 Capillary Refill : Less Than 3 Seconds General Appearance: No Apparent Distress, WD/WN, Thin HEENT: PERRL/EOMI, Normal ENT Inspection Neck: Normal Inspection Respiratory: Lungs Clear, Normal Breath Sounds, No Accessory Muscle Use, No Respiratory Distress, Other (left lateral chest wall TTP) Cardiovascular: No Edema, No Murmur, Irregularly Irregular Gastrointestinal: Normal Bowel Sounds, Non Tender, Soft Extremity: Normal Capillary Refill, Other (arthritic disfigurement) Neurologic/Psychiatric: Alert, Oriented x3, No Motor/Sensory Deficits, Normal Mood/Affect, surgery aid II-XII Norm as Tested Skin: Normal Color, Warm/Dry, No Rash Progress/Results/Core Measures Suspected Sepsis Recent Fever Within 48 Hours: No Infection Criteria Present: None New/Unexplained Altered Menta: No Sepsis Screen: No Definite Risk Sepsis Diagnosis: SIRS Temperature:97.7 Pulse: 107 Respiratory Rate: 16 Laboratory Tests 12/29/17 10:35: White Blood Count 17.9H Blood Pressure 156 /124 Mean: 135 Laboratory Tests 12/29/17 10:35: Creatinine 0.89, INR Comment 3.1H, Platelet Count 539H, Total Bilirubin 0.4 Results/Orders Lab Results My Orders Medications Given in ED Vital Signs/I&O Capillary Refill : Less Than 3 Seconds Blood Pressure Mean: 135 Progress Note : Progress Note Patient was suspected of developing recurrent pneumonia based on symptoms and labs. Antibiotics prescribed. Patient advised to monitor INR closely while on antibiotics. ECG Initial ECG Impression Date: Dec 29, 2017 Initial ECG Impression Time: 10:18 Initial ECG Rate: 107 Initial ECG Rhythm: A Fib/Flutter Initial ECG Impression: Atrial Fibrillation Comment Atrial fibrillation with rate of 107. No acute ST changes. Left axis deviation by automated read. Diagnostic Imaging Diagonstic Imaging: Xray Plain Films/CT/US/NM/MRI: chest Comments Chest x-ray viewed by me and report reviewed. Compared with prior. See below: NAME: PUR[facility] REC#: [id number] PT STATUS: REG ER : 1935 PHYSICIAN: KONRAD RUSS MD ADMIT DATE: 12/29/17/ER Signed Date of Exam: 12/29/17 CHEST PA/LAT (2 VIEW) CLINICAL INDICATION: Patient with left axillary rib pain and cough and sore throat. Exam: Chest x-ray PA and lateral views. Comparisons: Chest x-ray dated 12/05/2017. Findings: There is slight improved aeration of the left lung base with continued mild to moderate left basilar consolidation and airspace opacification. There is a small left pleural effusion which has decreased in size. There is stable bilateral apical pleural-parenchymal thickening/scarring. There is no right pleural effusion. There is no pneumothorax. There is discoid atelectasis in the left upper lung field region. Stable cardiomegaly with no significant pulmonary vascular congestion. Again seen neural stimulator electrode overlying the lower thoracic spine region. There is dextroscoliosis of the thoracolumbar spine with multilevel vertebral body spurs. IMPRESSION: 1: Interval slight improved aeration of the left lung base with continued left lung base atelectasis versus infiltrate. There is interval slight discoid atelectasis in the left upper lobe. 2: There is a small left pleural effusion which has decreased in size. 3: The remainder of this exam shows no significant interval change compared to the prior study of comparison. Dictated by: Dictated on workstation # [id number] Dict: 12/29/17 1112 Trans: 12/29/17 1158 Interpreted by: NINOSKA JJ MD Electronically signed by: NINOSKA JJ MD 12/29/17 1158 Diagonstic Imaging: Xray Plain Films/CT/US/NM/MRI: other (left ribs) Comments Left rib x-rays viewed by me and report reviewed. See below: NAME: PURVI [facility] REC#: [id number] PT STATUS: DEP ER : 1935 PHYSICIAN: KONRAD RUSS MD ADMIT DATE: 12/29/17/ER Signed Date of Exam: 12/29/17 RIBS, LEFT 2-3 VIEWS INDICATION: Left rib pain with cough and pharyngitis. FINDINGS: AP and oblique views of the left ribs are obtained. There is no evidence of displaced rib fracture. No pneumothorax or pleural reaction is identified. There is blunting of left costophrenic sulcus which may indicate small left pleural effusion. IMPRESSION: No radiographic evidence of displaced left rib fracture. There may be mild left pleural fluid or thickening noted. Dictated by: Dictated on workstation # [id number] Dict: 12/29/17 1117 Trans: 12/30/17 0734 Interpreted by: MARY KATE DOWNS MD Electronically signed by: MARY KATE DOWNS MD 12/30/17 0797 Departure Impression Impression: Primary Impression: Left upper lobe pneumonia Qualified Codes: J18.1 - Lobar pneumonia, unspecified organism Additional Impressions: Pleural effusion, left Chest wall pain Disposition: 01 HOME, SELF-CARE Condition: Stable Departure-Patient Inst. Decision time for Depature: 11:35 Referrals: SERGEI ROMAN MD (PCP/Family) Primary Care Physician Patient Instructions: Pleural Effusion (DC), Pneumonia, Adult (DC) Add. Discharge Instructions: Complete your antibiotics as prescribed. Follow-up with your primary care provider next week. He will need to have your INR checked again in the next few days as antibiotics may alter your warfarin effectiveness. Return to care if symptoms worsen. Take an extra Lasix (furosemide) today with your lunch. All discharge instructions reviewed with patient and/or family. Voiced understanding. Scripts Cefdinir (Cefdinir) 300 Mg Capsule 300 MG PO BID, #20 CAP Prov: KONRAD RUSS MD 12/29/17 Azithromycin (Azithromycin) 250 Mg Tablet 250 MG PO UD, #6 TAB TAKE 2 TABLETS ON DAY ONE THEN TAKE 1 TABLET DAILY FOR FOUR MORE DAYS Prov: KONRAD RUSS MD 12/29/17 Copy Copies To 1: SERGEI ROMAN MD Copies To 2: VIJAY SIDDIQUI MD, JOSHUA T MD Dec 29, 2017 11:44
[2017-12-29 12:05] VITALS: BP 128/97
== END 2017-12-29 12:05 | disposition home or self-care (01) ==
LOC: EDUNIT# 10:03 → ER 10:04
DX: J18.1 Lobar pneumonia, unspecified organism (principal); J90 Pleural effusion, not elsewhere classified; R07.89 Other chest pain; I10 Essential (primary) hypertension; I27.0 Primary pulmonary hypertension; I48.91 Unspecified atrial fibrillation; K21.9 Gastro-esophageal reflux disease without esophagitis; M81.0 Age-related osteoporosis without current pathological fracture; F41.9 Anxiety disorder, unspecified; Z87.19 Personal history of other diseases of the digestive system; Z87.440 Personal history of urinary (tract) infections; Z88.1 Allergy status to other antibiotic agents; Z88.2 Allergy status to sulfonamides; Z88.0 Allergy status to penicillin; Z88.8 Allergy status to other drugs, medicaments and biological substances; Z79.01 Long term (current) use of anticoagulants; Z79.51 Long term (current) use of inhaled steroids; Z90.49 Acquired absence of other specified parts of digestive tract; Z90.710 Acquired absence of both cervix and uterus
CPT/HCPCS: 36415; 71046; 71100; 80053; 83735; 83874; 83880; 84484; 85007; 85027; 85610; 85730; 86141; 93005; 93041

== ENCOUNTER 2018-01-01 09:54 | Inpatient (IN) | payer MEDICARE, OTHER ==
[~2018-01-01] VITALS: Ht 160 cm; Wt 61.2 kg
[~2018-01-01 09:54] MED LIST changes: +AZIT250T12 PO
--- OUTSIDE RECORDS SUMMARY | 2018-01-01 10:01 | XMS REPORT | Clinical Summary ---
Author Author [facility] Organization [facility] Address Unknown Phone Unavailable Care Team Providers Care Jet Piercer Operator Name Role Phone ChristineTea harding DO Unavailable Unavailable João Ruiz APRN Unavailable Source Comments Some departments are not documenting in the electronic medical record. If you do not see the information that you expected, contact Release of Information in the Health Information Management department at [phone] for further assistance in locating additional records.[facility] Allergies Active Allergy Reactions Severity Noted Date [...] SCREENING 2000 PREVNAR/PNEUMOVAX (#1) 2000 INFLUENZA VACCINE 2018 Results Not on filefrom Last 3 Months
--- NOTE | 2018-01-01 10:44 | ED Cough/URI ---
General Chief Complaint: Respiratory Problems Stated Complaint: DX W/ PNA, SIDE PAIN Nursing Triage Note: TO ROOM REPORTS HAS BEEN TREATED FOR PNEUMONIA SINCE OCT. WAS STARTED ON Z PACK AND CEFDINIR ON 12/29 CON'T TO HAVE PAIN IN R SIDE AROUND TO BACK WAS TOLD BY DR SIDDIQUI OFFICE TO COME TO THE ER. HAS NOT TAKEN ANY TYLENOL SINCE LAST NIGHT. Source: patient Exam Limitations: no limitations History of Present Illness Date Seen by Provider: Jan 01, 2018 Time Seen by Provider: 10:42 Initial Comments To ER with right-sided chest pain worse with deep breathing Since last night. No fevers or chills. She's had pneumonia intermittently since October. She was started on Omnicef on 12/29/17 for pneumonia on the left side. The pain on the right side again just started last night. The pain is worsened by deep breathing. Timing/Duration: getting worse Severity/Quality: moderate Associated Symptoms: cough, shortness of breath Allergies and Home Medications Allergies Coded Allergies: levofloxacin (Unverified Allergy, Severe, CHEST TIGHTNESS, 11/05/17) sulfamethoxazole (Verified Allergy, Severe, CHEST TIGHTNESS, 03/15/10) trimethoprim (Verified Allergy, Severe, CHEST TIGHTNESS, 03/15/10) Penicillins (Verified Allergy, Unknown, RASH, HAS RECEIVED ANCEF W/O PROBLEM, 04/18/16) dronedarone (Verified Allergy, Unknown, 04/12/16) hydrochlorothiazide (Verified Allergy, Unknown, 04/12/16) metoprolol (Unverified Allergy, Unknown, 04/18/16) Tetracyclines (Verified Adverse Reaction, Intermediate, SEVERE HEARTBURN, 11/05/17) Severe Heartburn amiodarone (Verified Adverse Reaction, Intermediate, MADE HER COLD, 11/05/17 ) clindamycin (Verified Adverse Reaction, Mild, HEARTBURN, 11/05/17) Home Medications Apixaban 2.5 Mg Tablet, 2.5 MG PO BID, (Reported) Azithromycin 250 Mg Tablet, 250 MG PO UD TAKE 2 TABLETS ON DAY ONE THEN TAKE 1 TABLET DAILY FOR FOUR MORE DAYS Prescribed by: KONRAD CORDERO on 12/29/17 1144 Calcium Carbonate 500 Mg Tab.chew, 500 MG PO DAILY, (Reported) Calcium Citrate/Vitamin D3 1 Each Tablet, 1 TAB PO 1300, (Reported) Cefdinir 300 Mg Capsule, 300 MG PO BID Prescribed by: FIDEL SINCLAIR on 12/05/17 1411 Cefdinir 300 Mg Capsule, 300 MG PO BID Prescribed by: KONRAD CORDERO on 12/29/17 1144 Cholecalciferol (Vitamin D3) 2,000 Unit Capsule, 2,000 UNIT PO DAILY, (Reported) Diltiazem HCl 120 Mg Tab.er.24h, 120 MG PO HS, (Reported) Estradiol 42.5 Gm Cream.appl, TP HS, (Reported) Fish Oil/Dha/Epa 1 Each Capsule, 1,200 MG PO TID, (Reported) Fluticasone Propionate 9.9 Ml [place].susp, 1 SPRAY NSEACH DAILY PRN for ALLERGIES , (Reported) Gabapentin 100 Mg Capsule, 100 MG PO TID, (Reported) Ketotifen Fumarate 5 Ml Drops, 1 DROP OU DAILY PRN for ALLERGIES, (Reported) Lactobacillus Combination No.4 1 Each Capsule, 1 CAP PO DAILY, (Reported) Magnesium Oxide 250 Mg Tablet, 250 MG PO DAILY, (Reported) Methadone HCl 10 Mg Tablet, 5 MG PO DAILY PRN for FOOT PAIN, (Reported) Multivits-Min/Iron/FA/Lutein 1 Each Tablet, 1 TAB PO DAILY, (Reported) Naproxen Sodium 220 Mg Capsule, 440 MG PO DAILY PRN for PAIN-MILD, (Reported) Pitavastatin Calcium 2 Mg Tablet, 2 MG PO HS, (Reported) TAKES 1/2 (4 MG) TABLET Potassium Gluconate 99 Mg Tablet, 99 MG PO HS, (Reported) Sodium Fluoride 51 Gm Cream..g., DT HS, (Reported) Triazolam 0.25 Mg Tablet, 0.25 MG PO HS, (Reported) Patient Home Medication List Home Medication List Reviewed: Yes Constitutional: see HPI EENTM: see HPI Respiratory: see HPI, cough Cardiovascular: no symptoms reported Genitourinary: no symptoms reported Musculoskeletal: no symptoms reported Skin: no symptoms reported Psychiatric/Neurological: No Symptoms Reported Past Drkkngu-Eauwwd-Jjgalm Hx Patient Social History Alcohol Use: Denies Use Number of Drinks Today: II Alcohol Beverage of Choice: Other Recreational Drug Use: No Smoking Status: Never a Smoker 2nd Hand Smoke Exposure: No Recent Foreign Travel: No Contact w/Someone Who Travel: No Recent Infectious Disease Expo: No Recent Hopitalizations: No Immunizations Up To Date Tetanus Booster (TDap): Unknown Date of Pneumonia Vaccine: May 31, 2009 Date of Influenza Vaccine: Oct 17, 2017 Seasonal Allergies Seasonal Allergies: No Surgeries History of Surgeries: Yes (APPY-1964, "STIMULATOR" IN BACK, RIGHT ANKLE SURGERY ) Surgeries: Appendectomy, Hysterectomy, Neurological, Orthopedic Respiratory History of Respiratory Disorde: Yes (WHOOPING COUGH AT AGE 6YRS.; PULMONARY HTN , left pleural effusion) Respiratory Disorders: Pneumonia Cardiovascular History of Cardiac Disorders: Yes (MITRAL AND AORTIC VALVE DISEASE; MILD CAROTID DISEASE) Cardiac Disorders: Atrial Fibrillation, Hypertension, Valvular Heart Disease Neurological History of Neurological Disord: Yes ("NEUROPATHY ALL OVER"; RSD) Neurological Disorders: Neuropathy Reproductive System Hx Reproductive Disorders: No HIV/AIDS: No [employer] History: Hysterectomy Genitourinary History of Genitourinary Disor: Yes Genitourinary Disorders: Renal Failure, UTI-Chronic Gastrointestinal History of Gastrointestinal Di: Yes Gastrointestinal Disorders: Gastroesophageal Reflux, Chronic Constipation Musculoskeletal History of Musculoskeletal Dis: Yes (CHRONIC NECK PAIN, LUMBAR RADICULOPATHY; KYPHOSIS) Musculoskeletal Disorders: Osteoporosis, Chronic Back Pain Endocrine History of Endocrine Disorders: No HEENT History of HEENT Disorders: No Loss of Vision: Bilateral Cancer History of Cancer: No Psychosocial History of Psychiatric Problem: Yes Behavioral Health Disorders: Anxiety Integumentary History of Skin or Integumenta: No Blood Transfusions History of Blood Disorders: No Adverse Reaction to a Blood Tr: No (N/A) Family Medical History Significant Family History: No Pertinent Family Hx Physical Exam Vital Signs Vital Signs - First Documented 01/01/18 09:59 Temp 97.6 Pulse 96 Resp 18 B/P (MAP) 128/88 (101) Pulse Ox 98 Capillary Refill : Less Than 3 Seconds General Appearance: WD/WN, no apparent distress Eyes: Bilateral Eye Normal Inspection, Bilateral Eye PERRL, Bilateral Eye EOMI HEENT: PERRL/EOMI, normal ENT inspection Neck: non-tender, full range of motion Respiratory: no respiratory distress, no accessory muscle use, crackles ( throughout the right lung) Cardiovascular: irregularly irregular Gastrointestinal: normal bowel sounds, non tender, soft Neurologic/Psychiatric: alert, normal mood/affect, oriented x 3 Skin: normal color, warm/dry, other (erythema to bilateral lower extremities which patient states is from reflex sympathetic dystrophy and they're always like this, no different today.) Focused Exam Evaluation Lactate Level Laboratory Tests 01/01/18 11:25: Lactic Acid Level 0.96 Lactic Acid Level Laboratory Tests Test 01/01/18 11:25 Lactic Acid Level 0.96 MMOL/L (0.50-2.00) Progress/Results/Core Measures Suspected Sepsis Recent Fever Within 48 Hours: No Infection Criteria Present: None New/Unexplained Altered Menta: No Sepsis Screen: No Definite Risk Sepsis Diagnosis: SIRS Temperature:97.6 Pulse: 96 Respiratory Rate: 18 Laboratory Tests 01/01/18 10:42: White Blood Count 18.3H Blood Pressure 128 /88 Mean: 101 Laboratory Tests 01/01/18 11:25: Lactic Acid Level 0.96 Laboratory Tests 01/01/18 10:42: Creatinine 0.83, Platelet Count 544H, Total Bilirubin 0.6 Results/Orders Lab Results Laboratory Tests Test 01/01/18 10:42 01/01/18 11:25 Range/Units White Blood Count 18.3 H 4.3-11.0 10^3/uL Red Blood Count 3.59 L 4.35-5.85 10^6/uL Hemoglobin 11.1 L 11.5-16.0 G/DL Hematocrit 34 L 35-52 % Mean Corpuscular Volume 93 80-99 FL Mean Corpuscular Hemoglobin 31 25-34 PG Mean Corpuscular Hemoglobin Concent 33 32-36 G/DL Red Cell Distribution Width 14.8 H 10.0-14.5 % Platelet Count 544 H 130-400 10^3/uL Mean Platelet Volume 8.6 7.4-10.4 FL Neutrophils (%) (Auto) 82 H 42-75 % Lymphocytes (%) (Auto) 12 12-44 % Monocytes (%) (Auto) 6 0-12 % Eosinophils (%) (Auto) 1 0-10 % Basophils (%) (Auto) 0 0-10 % Neutrophils # (Auto) 14.9 H 1.8-7.8 X 10^3 Lymphocytes # (Auto) 2.1 1.0-4.0 X 10^3 Monocytes # (Auto) 1.1 H 0.0-1.0 X 10^3 Eosinophils # (Auto) 0.2 0.0-0.3 10^3/uL Basophils # (Auto) 0.0 0.0-0.1 10^3/uL Neutrophils % (Manual) 76 % Lymphocytes % (Manual) 14 % Monocytes % (Manual) 6 % Eosinophils % (Manual) 2 % Basophils % (Manual) 0 % Band Neutrophils 2 % Elliptocytes SLIGHT Sodium Level 137 135-145 MMOL/L Potassium Level 4.1 3.6-5.0 MMOL/L Chloride Level 101 98-107 MMOL/L Carbon Dioxide Level 31 21-32 MMOL/L Anion Gap 5 5-14 MMOL/L Blood Urea Nitrogen 22 H 7-18 MG/DL Creatinine 0.83 0.60-1.30 MG/DL Estimat Glomerular Filtration Rate > 60 BUN/Creatinine Ratio 27 Glucose Level 101 70-105 MG/DL Calcium Level 10.0 8.5-10.1 MG/DL Total Bilirubin 0.6 0.1-1.0 MG/DL Aspartate Amino Transf (AST/SGOT) 31 5-34 U/L Alanine Aminotransferase (ALT/SGPT) 41 0-55 U/L Alkaline Phosphatase 171 H 40-136 U/L Total Protein 6.2 L 6.4-8.2 GM/DL Albumin 3.1 L 3.2-4.5 GM/DL Lactic Acid Level 0.96 0.50-2.00 MMOL/L My Orders Orders - FIDEL SINCLAIR [employer] Cbc With Automated Diff (01/01/18 10:32) Comprehensive Metabolic Panel (01/01/18 10:32) Chest Pa/Lat (2 View) (01/01/18 10:32) Saline Lock/Iv-Start (01/01/18 10:32) Manual Differential (01/01/18 10:42) Ct Angio Chest W (01/01/18 11:02) Blood Culture (01/01/18 11:04) Lactic Acid Analyzer (01/01/18 11:04) Cefepime Injection (Maxipime Injection) (01/01/18 11:15) Iohexol Injection (Omnipaque 350 Mg/Ml 1 (01/01/18 11:30) Ns (Ivpb) (Sodium Chloride 0.9%) (01/01/18 11:30) Fentanyl Injection (Sublimaze Injection (01/01/18 11:45) Ua Culture If Indicated (01/01/18 12:25) Medications Given in ED Current Medications Medications Dose Ordered Sig/Belkis Route Start Time Stop Time Status Last Admin Dose Admin Cefepime HCl 2000 mg/Sodium Chloride 100 ml @ 200 mls/hr ONCE ONCE IV 01/01/18 11:15 01/01/18 11:44 DC 01/01/18 12:23 200 MLS/HR Fentanyl Citrate 25 mcg ONCE PRN IVP 01/01/18 11:45 01/01/18 11:50 25 MCG Iohexol 125 ml ONCE ONCE IV 01/01/18 11:30 01/01/18 11:31 DC 01/01/18 11:54 125 ML Sodium Chloride 250 ml ONCE ONCE IV 01/01/18 11:30 01/01/18 11:31 DC 01/01/18 11:54 80 ML Vital Signs/I&O Vital Sign - Last 12Hours 01/01/18 09:59 Temp 97.6 Pulse 96 Resp 18 B/P (MAP) 128/88 (101) Pulse Ox 98 Capillary Refill : Less Than 3 Seconds Blood Pressure Mean: 101 Diagnostic Imaging Diagonstic Imaging: Xray Plain Films/CT/US/NM/MRI: chest Comments VIA [place], [place] NAME: PURVI VALENZUELA [facility] REC#: [id number] PT STATUS: REG ER : 1935 PHYSICIAN: FIDEL SINCLAIR APRN ADMIT DATE: 01/01/18/ER Draft Date of Exam:01/01/18 CHEST PA/LAT (2 VIEW) INDICATION: Chest pain. COMPARISON: 12/29/2017 FINDINGS: Two views of the chest are obtained. Heart size is mildly enlarged but unchanged. There is no central venous congestion. There is no pneumothorax. There is persistent airspace disease and pleural fluid at the left lung base slightly increased. There is new developing infiltrate and pleural fluid at the right lung base. There is also some increasing patchy ill-defined alveolar opacity in the lateral right upper lobe concerning for pneumonia. There are mild degenerative changes in the spine. Spinal electrode devices are unchanged. IMPRESSION: Overall, there has been mild worsening since the recent prior exam with developing airspace disease and pleural fluid at the right lung base, developing probable pneumonia in the right upper lobe and worsening airspace disease and pleural fluid at the left lung base. Dictated on workstation # [id number] Dict: 01/01/18 1121 Trans: 01/01/18 1125 TS [id number] Interpreted by: GAYLE MOORE DO Electronically signed by: NAME: PURVI VALENZUELA [facility] REC#: [id number] PT STATUS: REG ER : 1935 PHYSICIAN: FIDEL SINCLAIR APRN ADMIT DATE: 01/01/18/ER Draft Date of Exam:01/01/18 CT ANGIO CHEST W PROCEDURE: CT angiography of the chest with contrast. TECHNIQUE: Multiple contiguous axial images were obtained through the chest after uneventful bolus administration of intravenous contrast. Reconstructed CTA MIP acquisitions were also performed. INDICATION: Chest pain. COMPARISON: Made to examination of 11/04/2017. FINDINGS: There is good opacification of the pulmonary arteries without intraluminal filling defect. There is mild bilateral pleural fluid reduced from previous study. Sub-pleural atelectasis and/or pneumonitis mildly improved, bilaterally. There is no evidence of new infiltrate. No aortic aneurysm or intimal abnormality is identified. There is no significant pericardial fluid. No pathologic adenopathy is seen within the thorax. There is heterogeneous density in the spleen which is likely related to perfusion phenomenon although there is a persistent low-density nodule anteriorly in the spleen which is not changed from previous exam. There is generalized cardiomegaly. No other change is identified. IMPRESSION: Decreasing bilateral pleural fluid as well subjacent atelectasis and/or pneumonitis. There is no evidence of new abnormality or adverse change. No pulmonary arterial filling defect is seen to indicate embolism. Dictated on workstation # [id number] Dict: 01/01/18 1209 Trans: 01/01/18 1214 CVB [id number] Interpreted by: MARY KATE DOWNS MD Electronically signed by: Departure Communication (Admissions) Time/Spoke to Admitting Phy: 13:[address] Coley will be down to evaluate and admit the patient Impression Impression: Primary Impression: Right upper lobe pneumonia Additional Impressions: Pleural effusion, right Sepsis Disposition: ADMITTED INPATIENT Condition: Stable Admissions Decision to Admit Reason: Admit from ER (General) Decision to Admit/Date: Jan 01, 2018 Time/Decision to Admit Time: 12:37 Departure-Patient Inst. Referrals: SERGEI ROMAN MD (PCP/Family) Primary Care Physician FIDEL SINCLAIR [employer] Jan 01, 2018 10:44
[2018-01-01 10:51] LABS: BASOPHILS % (AUTO) 0 % (0-10); EOSINOPHILS # (AUTO) 0.2 10^3/uL (0.0-0.3); EOSINOPHILS % (AUTO) 1 % (0-10); HEMATOCRIT 34 % (35-52); HEMOGLOBIN 11.1 G/DL (11.5-16.0); LYMPHOCYTES # (AUTO) 2.1 X 10^3 (1.0-4.0); LYMPHOCYTES % (AUTO) 12 % (12-44); MEAN CORPUSCULAR HEMOGLOBIN 31 PG (25-34); MEAN CORPUSCULAR HGB CONC 33 G/DL (32-36); MEAN CORPUSCULAR VOLUME 93 FL (80-99); MEAN PLATELET VOLUME 8.6 FL (7.4-10.4); MONOCYTES # (AUTO) 1.1 X 10^3 (0.0-1.0); MONOCYTES % (AUTO) 6 % (0-12); NEUTROPHILS # (AUTO) 14.9 X 10^3 (1.8-7.8); NEUTROPHILS % (AUTO) 82 % (42-75); PLATELET COUNT 544 10^3/uL (130-400); RED BLOOD COUNT 3.59 10^6/uL (4.35-5.85); RED CELL DISTRIBUTION WIDTH 14.8 % (10.0-14.5); WHITE BLOOD COUNT 18.3 10^3/uL (4.3-11.0)
[2018-01-01 11:08] LABS: ALANINE AMINOTRANSFERASE 41 U/L (0-55); ALBUMIN 3.1 GM/DL (3.2-4.5); ALKALINE PHOSPHATASE 171 U/L (40-136); BILIRUBIN,TOTAL 0.6 MG/DL (0.1-1.0); BUN/CREATININE RATIO 27; CARBON DIOXIDE 31 MMOL/L (21-32); CHLORIDE 101 MMOL/L (98-107); CREATININE SERUM 0.83 MG/DL (0.60-1.30); GFR ESTIMATED > 60; GLUCOSE 101 MG/DL (70-105); POTASSIUM 4.1 MMOL/L (3.6-5.0); SODIUM 137 MMOL/L (135-145); TOTAL PROTEIN 6.2 GM/DL (6.4-8.2)
[2018-01-01] MEDS ORDERED: CEFEPIME INJECTION 2,000 MG in NS (IVPB) 100 ML IV ONE (11:15)
--- NOTE | 2018-01-01 11:26 | Diagnostic Imaging Report ---
INDICATION: Chest pain. COMPARISON: 12/29/2017 FINDINGS: Two views of the chest are obtained. Heart size is mildly enlarged but unchanged. There is no central venous congestion. There is no pneumothorax. There is persistent airspace disease and pleural fluid at the left lung base slightly increased. There is new developing infiltrate and pleural fluid at the right lung base. There is also some increasing patchy ill-defined alveolar opacity in the lateral right upper lobe concerning for pneumonia. There are mild degenerative changes in the spine. Spinal electrode devices are unchanged. IMPRESSION: Overall, there has been mild worsening since the recent prior exam with developing airspace disease and pleural fluid at the right lung base, developing probable pneumonia in the right upper lobe and worsening airspace disease and pleural fluid at the left lung base. Dictated by: Dictated on workstation # [id number]
[2018-01-01 11:27] LABS: BAND NEUTROPHILS 2 %; EOSINOPHILS % (MANUAL) 2 %; LYMPHOCYTES % (MANUAL) 14 %; MONOCYTES % (MANUAL) 6 %; NEUTROPHILS % (MANUAL) 76 %
[2018-01-01 11:28] LABS: BASOPHILS % (MANUAL) 0 %; ELLIPT/OVALOCYTES SLIGHT
[2018-01-01] MEDS ORDERED: IOHEXOL 350 MG/ML 150 ML (OMNIPAQUE 350) VIAL IV ONE (11:30)
[2018-01-01] MEDS ORDERED: NS 250 ML (IVPB) BAG IV ONE (11:30)
[2018-01-01] MEDS ORDERED: fentaNYL INJECTION 100 MCG/2 ML AMP IVP PRN (11:45)
--- NOTE | 2018-01-01 12:15 | Diagnostic Imaging Report ---
PROCEDURE: CT angiography of the chest with contrast. TECHNIQUE: Multiple contiguous axial images were obtained through the chest after uneventful bolus administration of intravenous contrast. Reconstructed CTA MIP acquisitions were also performed. INDICATION: Chest pain. COMPARISON: Made to examination of 11/04/2017. FINDINGS: There is good opacification of the pulmonary arteries without intraluminal filling defect. There is mild bilateral pleural fluid reduced from previous study. Sub-pleural atelectasis and/or pneumonitis mildly improved, bilaterally. There is no evidence of new infiltrate. No aortic aneurysm or intimal abnormality is identified. There is no significant pericardial fluid. No pathologic adenopathy is seen within the thorax. There is heterogeneous density in the spleen which is likely related to perfusion phenomenon although there is a persistent low-density nodule anteriorly in the spleen which is not changed from previous exam. There is generalized cardiomegaly. No other change is identified. IMPRESSION: Decreasing bilateral pleural fluid as well subjacent atelectasis and/or pneumonitis. There is no evidence of new abnormality or adverse change. No pulmonary arterial filling defect is seen to indicate embolism. Dictated by: Dictated on workstation # [id number]
--- OUTSIDE RECORDS SUMMARY | 2018-01-01 13:16 | XMS REPORT | Clinical Summary ---
Author Author [facility] Organization [facility] Address Unknown Phone Unavailable Care Team Providers Care [facility] [facility] Supervisor Name Role Phone ChristineTea harding DO Unavailable Unavailable João Ruiz APRN Unavailable Source Comments Some departments are not documenting in the electronic medical record. If you do not see the information that you expected, contact Release of Information in the Health Information Management department at [phone] for further assistance in locating additional records.University [...]
[2018-01-01] MEDS ORDERED: VANCOMYCIN INJECTION 0.1 MG in NS (IVPB) 250 ML IV SCH (14:00)
--- NOTE | 2018-01-01 14:13 | History & Physical-Hospitalist ---
History of Present Illness HPI/Chief Complaint Pt is an 82yoCF known to me from recent admissions who presented to the ER with CC of cough and right sided chest pain with inspiration. She states this is similar to the symptoms she has when she is getting pneumonia. She was seen her on 12/29 and treated with Omnicef and Azithromycin but continued to worsen and and had more SOB. She denies any fevers or sick contacts. She denies any issues with swallowing or difficulty swallowing. She states her pain is only with inspiration and is on the right side and goes down her side. This started 4-5 days ago on the left side but progress to the right overnight. Source: patient Exam Limitations: no limitations Date Seen 01/01/18 Time Seen by Provider: 13:30 Attending Physician Kerwin Coley MD PCP Benny Reddy MD Referring Physician Date of Admission Jan 01, 2018 at 1:13 pm Home Medications & Allergies Home Medications Reviewed patient Home Medication Reconciliation performed by pharmacy medication reconciliations install and repair technician and/or nursing. Patients Allergies have been reviewed. Allergies Allergies Coded Allergies dronedarone (Verified Allergy, Unknown, 04/12/16) hydrochlorothiazide (Verified Allergy, Unknown, 04/12/16) metoprolol (Unverified Allergy, Unknown, 04/18/16) Tetracyclines (Verified Adverse Reaction, Intermediate, SEVERE HEARTBURN, ) Severe Heartburn amiodarone (Verified Adverse Reaction, Intermediate, MADE HER COLD, 11/05/17) clindamycin (Verified Adverse Reaction, Mild, HEARTBURN, 11/05/17) Past Vmjiwip-Rvrjbq-Pptzpz Hx Past Med/Social Hx: Reviewed and Corrections made Patient Social History Employed/Student: retired Alcohol Use: Denies Use Number of Drinks Today: II Alcohol Beverage of Choice: Other Recreational Drug Use: No Smoking Status: Never a Smoker 2nd Hand Smoke Exposure: No Recent Foreign Travel: No Contact w/other who traveled: No Recent Hopitalizations: No Recent Infectious Disease Expo: No Immunizations Up To Date Tetanus Booster (TDap): Unknown Date of Pneumonia Vaccine: May 31, 2009 Date of Influenza Vaccine: Oct 17, 2017 Seasonal Allergies Seasonal Allergies: No Past Medical History Surgeries: Appendectomy, Hysterectomy, Neurological, Orthopedic Cardiac: Atrial Fibrillation, Hypertension, Valvular Heart Disease Neurological: Neuropathy Reproductive: No HIV/AIDS: No Hysterectomy Genitourinary: Renal Failure, UTI-Chronic Gastrointestinal: Gastroesophageal Reflux, Chronic Constipation Musculoskeletal: Osteoporosis, Chronic Back Pain Loss of Vision: Bilateral Psychosocial: Anxiety History of Blood Disorders: No Adverse Reaction to Blood Roe: No (N/A) Family History Reviewed Nursing Family Hx COPD (sister) Review of Systems Constitutional: No chills, No fever EENTM: No blurred vision, No double vision, No nose congestion, No throat pain Respiratory: cough, dyspnea on exertion, No hemoptysis, No short of breath Cardiovascular: No chest pain, No edema, No palpitations Gastrointestinal: No abdominal pain, No constipation, No diarrhea, No nausea, No vomiting Genitourinary: No dysuria, No frequency Musculoskeletal: back pain (chronic), muscle pain (right chest wall) Skin: No lesions, No rash Psychiatric/Neurological: Denies Headache, Denies Numbness, Denies Tingling All Other Systems Reviewed Negative Unless Noted: Yes Physical Exam Physical Exam Vital Signs Vital Signs - First Documented 01/01/18 01/01/18 09:59 13:27 Temp 97.6 Pulse 96 Resp 18 B/P (MAP) 128/88 (101) Pulse Ox 98 O2 Delivery Room Air Capillary Refill : Less Than 3 Seconds General Appearance: No Apparent Distress, WD/WN HEENT: PERRL/EOMI, Moist Mucous Membranes Neck: Non Tender, Supple, No JVD, No Thyromegaly Respiratory: Lungs Clear, No Respiratory Distress Cardiovascular: Systolic Murmur, Irregularly Irregular Gastrointestinal: Normal Bowel Sounds, Non Tender, Soft Extremity: Normal Capillary Refill, No Calf Tenderness, Pedal Edema (1+) Neurologic/Psychiatric: Alert, Oriented x3, No Motor/Sensory Deficits, Normal Mood/Affect Skin: Normal Color, Warm/Dry Results Results/Procedures Labs Laboratory Tests 01/01/18 10:42 01/02/18 05:50 Patient resulted labs reviewed. Imaging: Reviewed Imaging Films, Reviewed Imaging Report Imaging Date of Exam: 01/01/18 CHEST PA/LAT (2 VIEW) INDICATION: Chest pain. COMPARISON: 12/29/2017 FINDINGS: Two views of the chest are obtained. Heart size is mildly enlarged but unchanged. There is no central venous congestion. There is no pneumothorax. There is persistent airspace disease and pleural fluid at the left lung base slightly increased. There is new developing infiltrate and pleural fluid at the right lung base. There is also some increasing patchy ill-defined alveolar opacity in the lateral right upper lobe concerning for pneumonia. There are mild degenerative changes in the spine. Spinal electrode devices are unchanged. IMPRESSION: Overall, there has been mild worsening since the recent prior exam with developing airspace disease and pleural fluid at the right lung base, developing probable pneumonia in the right upper lobe and worsening airspace disease and pleural fluid at the left lung base. Date of Exam:01/01/18 CT ANGIO CHEST W PROCEDURE: CT angiography of the chest with contrast. TECHNIQUE: Multiple contiguous axial images were obtained through the chest after uneventful bolus administration of intravenous contrast. Reconstructed CTA MIP acquisitions were also performed. INDICATION: Chest pain. COMPARISON: Made to examination of 11/04/2017. FINDINGS: There is good opacification of the pulmonary arteries without intraluminal filling defect. There is mild bilateral pleural fluid reduced from previous study. Sub-pleural atelectasis and/or pneumonitis mildly improved, bilaterally. There is no evidence of new infiltrate. No aortic aneurysm or intimal abnormality is identified. There is no significant pericardial fluid. No pathologic adenopathy is seen within the thorax. There is heterogeneous density in the spleen which is likely related to perfusion phenomenon although there is a persistent low-density nodule anteriorly in the spleen which is not changed from previous exam. There is generalized cardiomegaly. No other change is identified. IMPRESSION: Decreasing bilateral pleural fluid as well subjacent atelectasis and/or pneumonitis. There is no evidence of new abnormality or adverse change. No pulmonary arterial filling defect is seen to indicate embolism. Assessment/Plan Admission Diagnosis RUL Pneumonia Admission Status: Inpatient Order (span 2 midnights) Reason for Inpatient Admission: failed outpatient antibiotics now septic Diagnosis/Problems Diagnosis/Problems (1) Sepsis Status: Acute Assessment & Plan: Tachycardia to 96 with Leukocytosis of 18 RUL on CXR Lactic normal No hypotension No indication for 30cc/kg bolus Cefepime given in ER, will continue and add Vanc MRSA screen per protocol Qualifiers: Sepsis type: sepsis due to unspecified organism Qualified Codes: A41.9 - Sepsis, unspecified organism (2) Right upper lobe pneumonia Status: Acute Assessment & Plan: Seen on CXR Will continue Abx as above MAT protocol Pulm consulted, appreciate recs Qualifiers: Pneumonia type: due to unspecified organism Qualified Codes: J18.1 - Lobar pneumonia, unspecified organism (3) Paroxysmal atrial fibrillation Status: Chronic Assessment & Plan: Follows with Dr Lilly On Warfarin for anticoagulation Monitor on telemetry while acutely ill (4) Multiple allergies Status: Chronic Assessment & Plan: Discussed her multiple listed allergies and she is unsure why they are listed She states she has taken Sulfa products multiple times with no problems I called and confirmed with her pharmacy and she has filled twice on 10/04/16 and 10/30/16 with no reported issues Regarding her PCN allergy she complained of a rash at 16yo but she states she had PCN again multiple times in her twenties with no issues Discussed using Zosyn (penicillin family) while admitted and she would like to try it so she can have more options for oral antibiotics Discussed with Pharmacy and as has already received Cefepime- will try Zosyn tomorrow Regarding Levaquin allergy she states it after her INR and her PCP told her to say she was allergic and that she is not actually allergic Discussed with Pharmacy and will remove allergies from list as above Of note she is also unsure of her lopressor and hydrochlorothiazide allergy but states Dr Lilly told her she was allergic so was hesitant to remove those from list (5) Normocytic anemia Status: Chronic Assessment & Plan: Mild Hgb actually above baseline Will trend (6) Prophylactic measure Assessment & Plan: Warfarin Saline lock HH KERWIN Cotton MD Jan 01, 2018 14:12
[2018-01-01] MEDS ORDERED: CATHETER FLUSH 10 ML SYR IV PRN (14:15)
[2018-01-01] MEDS: VANCOMYCIN 1250 MG/NS 250 ML IVPB IV SCH ×2 (14:46)
[2018-01-01] MEDS ORDERED: POTA10TA14 PO (14:56)
[2018-01-01] MEDS ORDERED: FURO20TA4 PO (14:56)
[2018-01-01] MEDS ORDERED: CEFEPIME INJECTION 2,000 MG in NS (IVPB) 100 ML IV SCH (15:00)
[2018-01-01] MEDS ORDERED: IBUP-2055 PO (15:11)
[2018-01-01] MEDS ORDERED: WARF-47 PO ×2 (15:11)
[2018-01-01] MEDS ORDERED: ACET-2267 PO (15:11)
[2018-01-01 15:15] VITALS: BP 126/85
[2018-01-01] MEDS ORDERED: METHADONE 10 MG (DOLOPHINE) TAB PO PRN (15:30)
[2018-01-01] MEDS: IBUPROFEN TABLET 200 MG TAB PO PRN (15:44)
--- NOTE | 2018-01-01 15:45 | Physical Therapy Progress Note ---
Therapy Progress Note Chart reviewed and evaluation attempted but patient refused. Patient has 8/10 pain in her right side and back. She states emphatically that she does not want to participate in physical therapy at this time due to her pain. She has not notified her nurse of the pain yet. Nurse if notified of patient's pain by PT. Physical therapy will attempt again tomorrow. IAN LARKIN PT Jan 01, 2018 15:45
--- NOTE | 2018-01-01 15:58 | Occupational Therapy Eval ---
OT Evaluation-General/PLF Medical Diagnosis Admission Date Jan 01, 2018 at 13:13 Medical Diagnosis: pneumonia, pleural effusion, sepsis Onset Date: Jan 01, 2018 Therapy Diagnosis Therapy Diagnosis: decr activity tolerance Height/Weight Height (Feet): 5 Height (Inches): 3.00 Weight (Pounds): 134 Weight (Ounces): 0 Precautions Precautions/Isolations: Standard Precautions Referral Physician: Brijesh Referral Reason: Evaluation/Treatment Medical History Pertinent Medical History: Atrial Fib, GERD, HTN, Neuropathy ("alll over") Additional Medical History Chronic UTI, chronic constipation. RSD. Osteoporosis. Chronic back pain. Lumbar radiculopathy, kyphosis, anxiety Current History Pt treated several times for pneumonia since October 2017. Chest pain Reviewed History: Yes Social History Home: Single Level Current Living Status: Alone (sister lives two doors away) ADL-Prior Level of Function ADL PLOF Comments Pt reported that she has been able to manage her basic self care needs and her home care needs as well. She still drives and brought herself to the hospital. She does not use any devices for walking but said that she has a cane at home. OT Current Status Subjective Pt seen in room, up in bed, agreeable to OT. Pain reported 8/10 in chest. to notify nursing. Appearance Alert, cooperative Mental Status/Objective Patient Orientation: Person, Place, Time, Situation Attachments: IV, Telemetry Current Upper Extremity ROM Grossly WFL bilat. Arthritic changes in hands. Upper Extremity Sensation Pt wearing fingerless gloves to keep her hands warm Upper Extremity Strength WFL bilat ADL-Treatment ADL-Current Pt reported that she was admitted today and took herself to the bathroom earlier. She will call for help with the IV and consider using the FWW to help save energy. Pt agreeable for OT education on energy conservation but not today. Functional [place] Measure 0=Not Assessed/NA 4=Minimal Assistance 1=Total Assistance 5=Supervision or Setup 2=Maximal Assistance 6=Modified [place] 3=Moderate Assistance 7=Complete IndependenceIRFPAI Quality Coding Scale 6 Independent with activity with or without an assistive device 5 Patient requires set up or clean up by helper. Patient completes activity by themselves 4 Supervision or touching assist (CGA). [place] provide cues , steadying assist 3 The helper provides less than half the effort to complete the activity 2 The helper provides more than half the effort to complete the activity 1 Dependent. The helper does all the effort to complete an activity 7 Patient refused to complete or attempt activity 9 The patient did not perform the activity before the current illness or injury 88 Not attempted due to Medical conditions or safety concerns Education OT Patient Education: Purpose of tx/functional activities, Rehab process Teaching Recipient: Patient Teaching Methods: Discussion Response to Teaching: Verbalize Understanding OT Correction Goals Correction Goals Time Frame: Jan 03, 2018 Pt will verbalize three techniques that she can use to conserve her energy for self care or home tasks Additional Goals: 1-Demonstrate ADL Tasks, 2-Verbalize Understanding 1=Demonstrate adherence to instructed precautions during ADL tasks. 2=Patient will verbalize/demonstrate understanding of assistive devices/ modifications for ADL. 3=Patient will improve strength/tolerance for activity to enable patient to perform ADL's. OT Education/Plan Problem List/Assessment Assessment: Decreased Activ Tolerance, Impaired Self-Care Skills (due to decreased activity tolerance) Pt would benefit from skilled OT to increase her activity tolerance to be able to manage basic self care tasks Discharge Recommendations Plan/Recommendations: Continue POC Treatment Plan/Plan of Care Treatment,Training & Education: Yes Patient would benefit from OT for education, treatment and training to promote independence in ADL's, mobility, safety and/or upper extremity function for ADL' s. Plan of Care: OTHER (energy conservation education) Treatment Duration: Jan 03, 2018 Frequency: 3 times per week (or until goal met) Estimated Hrs Per Day: .25 hour per day Agreement: Yes Rehab Potential: Good Time/GCodes Start Time: 15:30 Stop Time: 15:40 Total Time Billed (hr/min): 10 Billed Treatment Time visit, 10 minutes evaluation low intensity CRISTHIAN PLASCENCIA OT Jan 01, 2018 15:58
[2018-01-01 16:39] VITALS: BP 136/89
[2018-01-01] MEDS ORDERED: RT-ALBUTEROL/IPRATROPIUM 3 ML (DUONEB) VIAL INH PRN (17:30)
[2018-01-01] MEDS: RT-ALBUTEROL/IPRATROPIUM 3 ML (DUONEB) VIAL INH SCH (19:49)
[2018-01-01 20:00] VITALS: BP 112/62
[2018-01-01] MEDS: DILTIAZEM 120 MG (CARDIZEM CD) CAP PO SCH (20:07)
[2018-01-01] MEDS: TEMAZEPAM 15 MG (RESTORIL) CAP PO SCH (20:07)
[2018-01-01] MEDS: GABAPENTIN 100 MG (NEURONTIN) CAP PO SCH (20:07)
[2018-01-01] MEDS: ACETAMINOPHEN 500 MG TAB (TYLENOL) PO PRN (21:39)
[2018-01-01] MEDS: CATHETER FLUSH 10 ML SYR IV SCH (21:39)
[2018-01-02] VITALS: BP 90/53
[2018-01-02 04:00] VITALS: BP 101/57
[2018-01-02 06:22] LABS: BASOPHILS % (AUTO) 0 % (0-10); EOSINOPHILS # (AUTO) 0.5 10^3/uL (0.0-0.3); EOSINOPHILS % (AUTO) 3 % (0-10); HEMATOCRIT 31 % (35-52); LYMPHOCYTES # (AUTO) 1.6 X 10^3 (1.0-4.0); LYMPHOCYTES % (AUTO) 10 % (12-44); MEAN CORPUSCULAR HEMOGLOBIN 30 PG (25-34); MEAN CORPUSCULAR HGB CONC 33 G/DL (32-36); MEAN CORPUSCULAR VOLUME 93 FL (80-99); MEAN PLATELET VOLUME 8.8 FL (7.4-10.4); MONOCYTES # (AUTO) 1.3 X 10^3 (0.0-1.0); MONOCYTES % (AUTO) 8 % (0-12); NEUTROPHILS # (AUTO) 12.6 X 10^3 (1.8-7.8); NEUTROPHILS % (AUTO) 79 % (42-75); PLATELET COUNT 508 10^3/uL (130-400); RED BLOOD COUNT 3.32 10^6/uL (4.35-5.85); RED CELL DISTRIBUTION WIDTH 14.8 % (10.0-14.5)
[2018-01-02 06:30] LABS: INR 3.3 (0.8-1.4); PROTHROMBIN TIME PATIENT 33.5 SEC (12.2-14.7)
[2018-01-02] MEDS: KCL 10 MEQ TAB (MICRO K) PO SCH (06:31)
[2018-01-02] MEDS: CATHETER FLUSH 10 ML SYR IV SCH ×3 (06:31→20:44)
[2018-01-02 06:36] LABS: BUN/CREATININE RATIO 24; CALCIUM 9.1 MG/DL (8.5-10.1); CARBON DIOXIDE 24 MMOL/L (21-32); CHLORIDE 101 MMOL/L (98-107); CREATININE SERUM 0.89 MG/DL (0.60-1.30); GFR ESTIMATED > 60; GLUCOSE 103 MG/DL (70-105); POTASSIUM 3.7 MMOL/L (3.6-5.0); SODIUM 136 MMOL/L (135-145)
--- NOTE | 2018-01-02 06:43 | Pulmonary Consultation ---
History of Present Illness History of Present Illness Date of Consultation 01/02/18 06:38 Time Seen by Provider: 06:38 Date of Admission History of Present Illness 82yo with hx of recent admission for PNA presented to ED secondary to worsening cough, and pleuritic sharp right sided CP. No fever or chills. She was recently treated with omnicef and azithromycin. Allergies and Home Medications Allergies Coded Allergies: dronedarone (Verified Allergy, Unknown, 04/12/16) hydrochlorothiazide (Verified Allergy, Unknown, 04/12/16) metoprolol (Unverified Allergy, Unknown, 04/18/16) Tetracyclines (Verified Adverse Reaction, Intermediate, SEVERE HEARTBURN, 11/05/17) Severe Heartburn amiodarone (Verified Adverse Reaction, Intermediate, MADE HER COLD, 11/05/17 ) clindamycin (Verified Adverse Reaction, Mild, HEARTBURN, 11/05/17) Home Medications Acetaminophen 500 Mg Tablet, 500-1,000 MG PO Q6H PRN for PAIN-MILD, (Reported) Azithromycin 250 Mg Tablet, 250 MG PO UD TAKE 2 TABLETS ON DAY ONE THEN TAKE 1 TABLET DAILY FOR FOUR MORE DAYS Prescribed by: KONRAD CORDERO on 12/29/17 1144 Calcium Carbonate 500 Mg Tab.chew, 500 MG PO DAILY, (Reported) Calcium Citrate/Vitamin D3 1 Each Tablet, 1 TAB PO 1300, (Reported) Cefdinir 300 Mg Capsule, 300 MG PO BID Prescribed by: KONRAD CORDERO on 12/29/17 1144 Cholecalciferol (Vitamin D3) 2,000 Unit Capsule, 2,000 UNIT PO DAILY, (Reported) Diltiazem HCl 120 Mg Tab.er.24h, 120 MG PO HS, (Reported) Estradiol 42.5 Gm Cream.appl, TP HS, (Reported) Fish Oil/Dha/Epa 1 Each Capsule, 1,200 MG PO TID, (Reported) Fluticasone Propionate 9.9 Ml [place].susp, 1 SPRAY NS DAILY PRN for ALLERGIES, ( Reported) Furosemide 20 Mg Tablet, 20 MG PO DAILY, (Reported) Gabapentin 100 Mg Capsule, 100 MG PO TID, (Reported) Ibuprofen 200 Mg Tablet, 400 MG PO TID PRN for PAIN-MILD, (Reported) Ketotifen Fumarate 5 Ml Drops, 1 DROP OU DAILY PRN for ALLERGIES, (Reported) Lactobacillus Combination No.4 1 Each Capsule, 1 CAP PO DAILY, (Reported) Magnesium Oxide 250 Mg Tablet, 250 MG PO DAILY, (Reported) Methadone HCl 10 Mg Tablet, 5 MG PO DAILY PRN for FOOT PAIN, (Reported) TAKES 1/2 (10MG) TABLET Multivits-Min/Iron/FA/Lutein 1 Each Tablet, 1 TAB PO DAILY, (Reported) Potassium Chloride 10 Meq Tab.er.prt, 10 MEQ PO DAILY, (Reported) Sodium Fluoride 51 Gm Cream..g., DT HS, (Reported) Triazolam 0.25 Mg Tablet, 0.25 MG PO HS, (Reported) Warfarin Sodium 2 Mg Tablet, 2 MG PO MoFr, (Reported) Warfarin Sodium 2 Mg Tablet, 4 MG PO SuTuWeThSa, (Reported) TAKES 2 (2MG) TABLETS Past Ttydqkq-Vwkvre-Kgkddv Hx Patient Social History Alcohol Use: Denies Use Number of Drinks Today: II Alcohol Beverage of Choice: Other Recreational Drug Use: No Smoking Status: Never a Smoker 2nd Hand Smoke Exposure: No Recent Foreign Travel: No Contact w/Someone Who Travel: No Recent Infectious Disease Expo: No Recent Hopitalizations: Yes (FEBRUARY-PNEUMONIA) Immunizations Up To Date Tetanus Booster (TDap): Unknown PED Vaccines UTD: Yes Date of Pneumonia Vaccine: Jun 30, 2017 Date of Influenza Vaccine: Oct 17, 2017 Seasonal Allergies Seasonal Allergies: Yes Surgeries History of Surgeries: Yes (-1963, "STIMULATOR" IN BACK, RIGHT ANKLE SURGERY ) Surgeries: Appendectomy, Hysterectomy, Neurological, Orthopedic Respiratory History of Respiratory Disorde: Yes (WHOOPING COUGH AT AGE 6YRS.; PULMONARY HTN , left pleural effusion) Respiratory Disorders: Pneumonia Currently Using CPAP: No Currently Using BIPAP: No Cardiovascular History of Cardiac Disorders: Yes (MITRAL AND AORTIC VALVE DISEASE; MILD CAROTID DISEASE) Cardiac Disorders: Atrial Fibrillation, Hypertension, Valvular Heart Disease Neurological History of Neurological Disord: Yes ("NEUROPATHY ALL OVER"; RSD) Neurological Disorders: Neuropathy Reproductive System Hx Reproductive Disorders: No HIV/AIDS: No 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 Genitourinary History of Genitourinary Disor: Yes Genitourinary Disorders: UTI-Chronic Gastrointestinal History of Gastrointestinal Di: Yes Gastrointestinal Disorders: Gastroesophageal Reflux, Chronic Constipation Musculoskeletal History of Musculoskeletal Dis: Yes (CHRONIC NECK PAIN, LUMBAR RADICULOPATHY; KYPHOSIS) Musculoskeletal Disorders: Osteoporosis, Arthritis, Chronic Back Pain Endocrine History of Endocrine Disorders: No HEENT History of HEENT Disorders: No Loss of Vision: Bilateral Cancer History of Cancer: No Psychosocial History of Psychiatric Problem: Yes Behavioral Health Disorders: Sleep Difficulties, Anxiety Integumentary History of Skin or Integumenta: No Blood Transfusions History of Blood Disorders: No Adverse Reaction to a Blood Tr: No (N/A) Family Medical History Significant Family History: COPD (sister) Review of Systems Time Seen by Provider: 08:09 Constitutional: Fever, Weakness, Malaise, No: Chills, Sweats, Other Eyes: No: Pain, Vision change, Conjunctivae inflammation, Eyelid inflammation, Other, Redness ENT: No: Ear pain, Ear discharge, Nose pain, Nose discharge, Nose congestion, Mouth pain, Mouth swelling, Throat pain, Throat swelling, Other Respiratory: Cough, Dry, Shortness of breath, SOB with excertion, No: Wheezing Cardiovascular: Paroxysmal Noc. Dyspnea, Lt Headedness, No: Chest Pain, Palpitations, Orthopnea, Edema, Other Gastrointestinal: No: Nausea, Vomiting, Abdominal Pain, Diarrhea, Constipation , Melena, Hematochezia, Other Genitourinary: No Dysuria, No Frequency, No Incontinence, No Hematuria, No Retention, No Other Neurological: Weakness Exam Exam Vital Signs Date Time Temp Pulse Resp B/P (MAP) Pulse Ox O2 Delivery O2 Flow Rate FiO2 01/02/18 04:00 97.5 86 18 101/57 (72) 94 Room Air 01/02/18 01:00 93 01/02/18 00:00 97.4 88 17 90/53 (65) 95 Room Air 01/01/18 21:20 95 Room Air 01/01/18 20:00 97.6 100 18 112/62 (79) 96 01/01/18 19:49 93 Room Air 01/01/18 19:00 116 01/01/18 16:39 110 96 01/01/18 16:39 96 Room Air 01/01/18 15:20 103 01/01/18 15:15 99.0 124 16 126/85 (99) 97 01/01/18 14:10 98 Room Air 01/01/18 13:27 96 18 136/89 95 Room Air 01/01/18 09:59 97.6 96 18 128/88 (101) 98 I & O 01/02/18 07:00 Intake Total 700 ml Balance 700 ml General Appearance: No Apparent Distress, WD/WN HEENT: PERRL/EOMI, Moist Mucous Membranes Neck: Non Tender, Supple, No JVD, No Thyromegaly Respiratory: Lungs Clear, No Respiratory Distress Cardiovascular: Systolic Murmur, Irregularly Irregular Capillary Refill: Less Than 3 Seconds Gastrointestinal: normal bowel sounds, non tender, soft Extremity: Normal Capillary Refill, No Calf Tenderness, Pedal Edema (1+) Neurologic/Psychiatric: Alert, Oriented x3, No Motor/Sensory Deficits, Normal Mood/Affect Skin: Normal Color, Warm/Dry Results Lab Laboratory Tests 01/01/18 10:42 01/02/18 05:50 Assessment/Plan Assessment/Plan Sepsis with pneumonia and pleuritic pain -berger cultures - check UA -Cefepime and vanco Paroxysmal Afib -Cardiology following CT scan and labs reviewed 255 SHITAL HUDSON DO Jan 02, 2018 06:43
[2018-01-02] MEDS: RT-ALBUTEROL/IPRATROPIUM 3 ML (DUONEB) VIAL INH SCH ×2 (07:39→22:00)
[2018-01-02 08:00] VITALS: BP 101/81
[2018-01-02] MEDS: FUROSEMIDE 20 MG (LASIX) TAB PO SCH (09:08)
[2018-01-02] MEDS: GABAPENTIN 100 MG (NEURONTIN) CAP PO SCH ×3 (09:08→20:44)
[2018-01-02] MEDS: LACTOBACILLUS Acidoph/Bulgar (LACTINEX/FLORANEX) TAB PO SCH (09:08)
--- NOTE | 2018-01-02 09:33 | Physical Therapy Evaluation ---
PT Evaluation-General Medical Diagnosis Admission Date Jan 01, 2018 at 13:13 Medical Diagnosis: pneumonia, pleural effusion, sepsis Onset Date: Jan 01, 2018 Therapy Diagnosis Therapy Diagnosis: debility Height/Weight Height (Feet): 5 Height (Inches): 3.00 Weight (Pounds): 135 Weight (Ounces): 0.0 Precautions Precautions/Isolations: Standard Precautions Weight Bear Status Right Lower Extremity: Right Weight Bearing/Tolerated Left Lower Extremity: Left Weight Bearing/Tolerated Referral Physician: Brijesh Reason for Referral: Evaluation/Treatment Medical History Pertinent Medical History: Atrial Fib, GERD, HTN, Neuropathy ("alll over") Current History ER with CP with inspiration/pleural effusion Reviewed History: Yes Social History Home: Single Level Current Living Status: Alone (sister lives two doors away) Prior/Core FIM Prior Level of Function Functional [place] Measure 0=Not Assessed/NA 4=Minimal Assistance 1=Total Assistance 5=Supervision or Setup 2=Maximal Assistance 6=Modified [place] 3=Moderate Assistance 7=Complete [place] Bed Mobility: 7 Transfers (B,C,W/C) (FIM): 7 Gait: 7 PT Evaluation-Current Subjective Patient agrees to PT. Pain Numeric Pain Scale: 5-Moderate Pain Location: Anterior Location Body Site: Chest Pain Description: Pressure, Sharp Objective Patient Orientation: Normal For Age Problem Solving: Good ROM/Strength ROM Lower Extremities bilateral LE WNL Strength Lower Extremities right knee flexion/extension 4/5; hip flexion 4/5; DF/PF 4/5 left knee flexion/extension 4/5; hip flexion 4/5; DF/PF 4/5 Integumentary/Posture Integumentary refer to nursing notes Bowel Incontinence: No Bladder Incontinence: No Posture kyphotic Neuromuscular (Tone, Coordination, Reflexes) grossly intact Sensory Vision: Functional Hearing: Functional Sensation Right Lower Extremit: Impaired Sensation Left Lower Extremity: Impaired Transfers Functional [place] Measure 0=Not Assessed/NA 4=Minimal Assistance 1=Total Assistance 5=Supervision or Setup 2=Maximal Assistance 6=Modified [place] 3=Moderate Assistance 7=Complete [place] Transfers (B, C, W/C) (FIM): 7 Scootin Rollin Supine to/from Sit: 7 Sit to/from Stand: 7 Gait Mode of Locomotion: Walk Anticipated Mode of Locomotion: Walk Gait (FIM): 6 Distance (FIM): 3=150 ft Distance: 450' Gait Level of Assist: 6 Gait Assistive Device: FWW Comments/Gait Description Patient ambulates in room independently. Hallway/longer distance use FWW. Balance Sitting Static: Normal Sitting Dynamic: Normal Standing Static: Normal Standing Dynamic: Normal Assessment/Needs 82 y.o. female, is currently at [facility] with all gross motor skills and does not require skilled PT intervention. Patient has been instructed to ambulate PRN in hallway with FWW. RN notified as well and both voice understanding. Rehab Potential: Good PT Plan Treatment/Plan Treatment Plan: Discontinue PT, goals met Treatment Plan: Other Treatment Duration: Jan 02, 2018 Frequency: 1 time per week Estimated Hrs Per Day: .25 hour per day Patient and/or Family Agrees t: Yes Safety Risks/Education Patient Education: Gait Training Teaching Recipient: Patient Teaching Methods: Discussion Response to Teaching: Verbalize Understanding Discharge Recommendations Therapy D/C Recommendations: Home Independently Time/GCodes Time In: 810 Time Out: 824 Total Billed Treatment Time: 14 Total Billed Treatment 1 visit EVModC 14 min G Codes Necessary: ROGER De La Cruz PT Jan 02, 2018 09:33
[2018-01-02 11:14] LABS: BILIRUBIN,URINE NEGATIVE (NEGATIVE); CLARITY,URINE SLIGHTLY CLOUDY; COLOR,URINE AMBER; GLUCOSE, URINE (UA) NEGATIVE (NEGATIVE); KETONES,URINE NEGATIVE (NEGATIVE); LEUKOCYTE ESTERASE ,URINE 3+ (NEGATIVE); NITRITE,URINE NEGATIVE (NEGATIVE); PH,URINE 6.5 (5-9); PROTEIN,URINE 3+ (NEGATIVE); UROBILINOGEN,URINE NORMAL (NORMAL)
--- NOTE | 2018-01-02 11:25 | Progress Note-Hospitalist ---
Subjective HPI/CC On Admission Date Seen by Provider: Jan 02, 2018 Time Seen by Provider: 11:20 Pt is an 82yoCF known to me from recent admissions who presented to the ER with CC of cough and right sided chest pain with inspiration. She states this is similar to the symptoms she has when she is getting pneumonia. She was seen her on 12/29 and treated with Omnicef and Azithromycin but continued to worsen and and had more SOB. She denies any fevers or sick contacts. She denies any issues with swallowing or difficulty swallowing. She states her pain is only with inspiration and is on the right side and goes down her side. This started 4-5 days ago on the left side but progress to the right overnight. Subjective/Events-last exam Pt reports doing well but having some pleuritic pain with deep breaths. Otherwise no complaints. Feet are more swollen but she said they always swell when they're not elevated. Focused Exam Evaluation Lactate Level Laboratory Tests 01/01/18 11:25: Lactic Acid Level 0.96 Objective Exam Vital Signs Vital Signs Date Time Temp Pulse Resp B/P (MAP) Pulse Ox O2 Delivery O2 Flow Rate FiO2 01/01/18 09:59 97.6 96 18 128/88 (101) 98 01/01/18 13:27 Room Air Capillary Refill : Less Than 3 Seconds General Appearance: No Apparent Distress, WD/WN Respiratory: Lungs Clear, No Respiratory Distress Cardiovascular: No Murmur, Irregularly Irregular Gastrointestinal: Normal Bowel Sounds, Non Tender, Soft Extremity: Swelling (bilateral) Neurologic/Psychiatric: Alert, Oriented x3, Normal Mood/Affect Skin: Erythema (bilateral lower extremites- baseline) Results/Procedures Lab Laboratory Tests 01/02/18 05:50 Patient resulted labs reviewed. Imaging: Reviewed Imaging Films, Reviewed Imaging Report Assessment/Plan Assessment and Plan Assess & Plan/Chief Complaint Pneumonia Diagnosis/Problems Diagnosis/Problems (1) Sepsis Status: Acute Assessment & Plan: RUL on CXR Cont Vanc Discussed with patient and would like to switch to PCN while admitted as she does not believe she is actually PCN allergic Will switch MRSA screen per protocol Qualifiers: Sepsis type: sepsis due to unspecified organism Qualified Codes: A41.9 - Sepsis, unspecified organism (2) Right upper lobe pneumonia Status: Acute Assessment & Plan: Seen on CXR though CT states improvement in findings Will continue Abx as above MAT protocol Pulm consulted, appreciate recs Lidoderm patch for pleuritic pain Qualifiers: Pneumonia type: due to unspecified organism Qualified Codes: J18.1 - Lobar pneumonia, unspecified organism (3) Paroxysmal atrial fibrillation Status: Chronic Assessment & Plan: Follows with Dr Lilly Actually on Warfarin at home INR 3.3 so will hold today and recheck in AM as has history of excessive anticoagulation and had been taking increasing dose for 1 week Will continue (4) Multiple allergies Status: Chronic Assessment & Plan: Discussed her multiple listed allergies with her on admission and she is unsure why they are listed She states she has taken Sulfa products multiple times with no problems I called and confirmed with her pharmacy and she has filled twice on 10/04/16 and 10/30/16 with no reported issues Regarding her PCN allergy she complained of a rash at 16yo but she states she had PCN again multiple times in her twenties with no issues Discussed using Zosyn (penicillin family) while admitted and she would like to try it so she can have more options for oral antibiotics Discussed with Pharmacy and as has already received Cefepime- will try Zosyn tomorrow Regarding Levaquin allergy she states it after her INR and her PCP told her to say she was allergic and that she is not actually allergic Discussed with Pharmacy and will remove allergies from list as above Of note she is also unsure of her lopressor and hydrochlorothiazide allergy but states Dr Lilly told her she was allergic so was hesitant to remove those from list (5) Normocytic anemia Status: Chronic Assessment & Plan: Mild Hgb actually above baseline Will trend (6) Prophylactic measure Assessment & Plan: Has supratherapeutic INR Saline lock HH diet Clinical Quality Measures DVT/VTE Risk/Contraindication: Risk Factor Score Per Nursin RFS Level Per Nursing on Admit: 4+=Very High KERWIN CARRERA MD Jan 02, 2018 11:25
[2018-01-02] MEDS ORDERED: PIPERACILLIN SODIUM/TAZOBACTAM 4.5 GM in NS (IVPB) 100 ML IV NR (11:30)
[2018-01-02] MEDS: LIDOCAINE (LIDODERM) 5% PATCH TOP SCH (11:52)
[2018-01-02 12:00] VITALS: BP 144/69
[2018-01-02] MEDS ORDERED: CEFEPIME INJECTION 2,000 MG in NS (IVPB) 100 ML IV SCH (12:00)
[2018-01-02 12:07] LABS: RBC,URINE >100 /HPF; WBC,URINE 50-100 /HPF
[2018-01-02 12:08] LABS: BACTERIA,URINE MODERATE /HPF; YEAST,URINE LARGE /HPF
[2018-01-02] MEDS: VANCOMYCIN 1250 MG/NS 250 ML IVPB IV SCH ×2 (13:28)
--- NOTE | 2018-01-02 15:59 | Occupational Ther Daily Note ---
OT Current Status-Daily Note Subjective Pt seen in room, up in recliner, agreeable to OT. No pain mentioned except still having chest discomfort. Appearance Alert, cooperative Mental Status/Objective Functional [place] Measure 0=Not Assessed/NA 4=Minimal Assistance 1=Total Assistance 5=Supervision or Setup 2=Maximal Assistance 6=Modified [place] 3=Moderate Assistance 7=Complete [place] ADL-Treatment Pt provided with written information on energy conservation. General principles discussed and examples provided. Pt to review information and try to identify ways that she could save her energy once she goes home and is recovering from pneumonia. pt in agreement. pt left up in recliner, all needs met. Education OT Patient Education: Energy conservation, Purpose of tx/functional activities Teaching Recipient: Patient Teaching Methods: Discussion Response to Teaching: Verbalize Understanding OT Short Term Goals Short Term Goals 1=Demonstrate adherence to instructed precautions during ADL tasks. 2=Patient will verbalize/demonstrate understanding of assistive devices/ modifications for ADL. 3=Patient will improve strength/tolerance for activity to enable patient to perform ADL's. OT Hotel Front Desk Clerk Goals Hotel Front Desk Clerk Goals Time Frame: Jan 03, 2018 Pt will verbalize three techniques that she can use to conserve her energy for self care or home tasks Additional Goals: 1-Demonstrate ADL Tasks, 2-Verbalize Understanding 1=Demonstrate adherence to instructed precautions during ADL tasks. 2=Patient will verbalize/demonstrate understanding of assistive devices/ modifications for ADL. 3=Patient will improve strength/tolerance for activity to enable patient to perform ADL's. OT Education/Plan Problem List/Assessment Pt would benefit from skilled OT to increase her activity tolerance to be able to manage basic self care tasks Discharge Recommendations Plan/Recommendations: Continue POC Treatment Plan/Plan of Care Patient would benefit from OT for education, treatment and training to promote independence in ADL's, mobility, safety and/or upper extremity function for ADL' s. Plan of Care: OTHER (energy conservation education) Treatment Duration: Jan 03, 2018 Frequency: 3 times per week (or until goal met) Estimated Hrs Per Day: .25 hour per day Agreement: Yes Rehab Potential: Good Time/GCodes Start Time: 15:35 Stop Time: 15:50 Total Time Billed (hr/min): 15 Billed Treatment Time visit, 15 minutes ADL CRISTHIAN PLASCENCIA OT Jan 02, 2018 15:59
[2018-01-02 16:00] VITALS: BP 106/63
[2018-01-02] MEDS: IBUPROFEN TABLET 200 MG TAB PO PRN (16:02)
[2018-01-02] MEDS: PIPERACILLIN SODIUM/TAZOBACTAM 4.5 GM in NS (IVPB) 100 ML IV SCH (17:14)
[2018-01-02] MEDS: DILTIAZEM 120 MG (CARDIZEM CD) CAP PO SCH (20:44)
[2018-01-02] MEDS: TEMAZEPAM 15 MG (RESTORIL) CAP PO SCH (20:44)
[2018-01-02] MEDS: LIDOCAINE PATCH REMOVAL TP SCH (20:45)
[2018-01-03 00:12] VITALS: BP 115/64
[2018-01-03] MEDS: PIPERACILLIN SODIUM/TAZOBACTAM 4.5 GM in NS (IVPB) 100 ML IV SCH ×3 (02:07→18:35)
[2018-01-03 05:56] LABS: BASOPHILS % (AUTO) 0 % (0-10); EOSINOPHILS # (AUTO) 0.7 10^3/uL (0.0-0.3); EOSINOPHILS % (AUTO) 3 % (0-10); HEMATOCRIT 29 % (35-52); HEMOGLOBIN 9.3 G/DL (11.5-16.0); LYMPHOCYTES # (AUTO) 1.9 X 10^3 (1.0-4.0); LYMPHOCYTES % (AUTO) 10 % (12-44); MEAN CORPUSCULAR HEMOGLOBIN 30 PG (25-34); MEAN CORPUSCULAR HGB CONC 32 G/DL (32-36); MEAN CORPUSCULAR VOLUME 93 FL (80-99); MEAN PLATELET VOLUME 8.8 FL (7.4-10.4); MONOCYTES # (AUTO) 1.5 X 10^3 (0.0-1.0); MONOCYTES % (AUTO) 8 % (0-12); NEUTROPHILS # (AUTO) 15.4 X 10^3 (1.8-7.8); NEUTROPHILS % (AUTO) 79 % (42-75); PLATELET COUNT 467 10^3/uL (130-400); RED BLOOD COUNT 3.08 10^6/uL (4.35-5.85); RED CELL DISTRIBUTION WIDTH 14.8 % (10.0-14.5); WHITE BLOOD COUNT 19.4 10^3/uL (4.3-11.0)
--- NOTE | 2018-01-03 05:57 | Pulmonary Progress Note ---
Subjective Time Seen by Provider: 06:28 Subjective/Events-last exam c/o pleuritic CP and SOB Focused Exam Lactate Level Laboratory Tests 01/01/18 11:25: Lactic Acid Level 0.96 Exam Exam Vital Signs Date Time Temp Pulse Resp B/P (MAP) Pulse Ox O2 Delivery O2 Flow Rate FiO2 01/03/18 01:00 94 01/03/18 00:12 97.6 97 16 115/64 (81) 95 Room Air 01/02/18 22:00 97 Room Air 01/02/18 21:00 Room Air 01/02/18 19:00 101 01/02/18 16:00 99.8 98 20 106/63 (77) 96 Room Air 01/02/18 13:00 102 01/02/18 12:00 99.0 108 18 144/69 (94) 96 Room Air 01/02/18 08:00 97.4 95 16 101/81 (88) 95 Room Air 01/02/18 07:00 86 I & O 01/03/18 07:00 Intake Total 1812.5 ml Output Total 1100 ml Balance 712.5 ml General Appearance: No Apparent Distress, WD/WN HEENT: PERRL/EOMI, Moist Mucous Membranes Neck: Non Tender, Supple, No JVD, No Thyromegaly Respiratory: Lungs Clear, No Respiratory Distress Cardiovascular: Systolic Murmur, Irregularly Irregular Capillary Refill: Less Than 3 Seconds Gastrointestinal: normal bowel sounds, non tender, soft Extremity: Normal Capillary Refill, No Calf Tenderness, Pedal Edema (1+) Neurologic/Psychiatric: Alert, Oriented x3, No Motor/Sensory Deficits, Normal Mood/Affect Skin: Normal Color, Warm/Dry Results Lab Laboratory Tests 01/01/18 10:42 01/02/18 05:50 Assessment/Plan Assessment/Plan Sepsis with pneumonia and pleuritic pain -berger cultures -Cefepime and vanco -Repeat CXR this AM Paroxysmal Afib -Cardiology following 232 SHITAL HUDSON DO Jan 03, 2018 05:57
[2018-01-03 06:12] LABS: INR 3.2 (0.8-1.4); PROTHROMBIN TIME PATIENT 32.6 SEC (12.2-14.7)
[2018-01-03 06:19] LABS: CREATININE SERUM 1.15 MG/DL (0.60-1.30); POTASSIUM 3.7 MMOL/L (3.6-5.0)
[2018-01-03] MEDS: KCL 10 MEQ TAB (MICRO K) PO SCH (06:30)
[2018-01-03] MEDS: CATHETER FLUSH 10 ML SYR IV SCH ×3 (06:30→20:27)
[2018-01-03] MEDS: ACETAMINOPHEN 500 MG TAB (TYLENOL) PO PRN (06:33)
[2018-01-03 08:45] VITALS: BP 98/56
--- NOTE | 2018-01-03 09:57 | Diagnostic Imaging Report ---
Procedure: PA and lateral chest at 10:32. Indication: Pneumonia. Findings: The cardiomegaly and bibasal pneumonia/atelectasis and bilateral pleural effusions seen on the prior exam of 01/01/2018 are again evident. The left lung base does seem slightly better aerated than on the prior exam. The previous study also suggested probable pneumonia involving the right upper lobe. That finding is again evident and no different. There is some increased density along the periphery of the left upper lobe at the same level. This may represent a new focus of pneumonia/atelectasis as well. The mediastinum is not widened. The osseous structures are intact. Impression: 1. There are mixed results. The left lung base does seem better aerated but there is now a question of a new area of pneumonia in the left upper lung. 2. The overall appearance of the chest is otherwise stable. Dictated by: Dictated on workstation # [id number]
--- NOTE | 2018-01-03 09:57 | Consultation-Cardiology ---
HPI-Cardiology Cardiology Consultation Date of Consultation 01/03/18 Date of Admission Time Seen by Provider: 09:36 Indication: Shortness of breath HPI 82 years old lady with history of paroxysmal atrial fibrillation, admitted for worsening shortness of breath and chest pain, described it as achiness on the right side of her chest with inspiration, admit having mild cough, she was noted to have pleural effusion and mild infiltrate. She denied any fever or chills. Today she is feeling somewhat better still having some pain on inspiration. Home Medications & Allergies Allergies: Coded Allergies: dronedarone (Verified Allergy, Unknown, 04/12/16) hydrochlorothiazide (Verified Allergy, Unknown, 04/12/16) metoprolol (Unverified Allergy, Unknown, 04/18/16) Tetracyclines (Verified Adverse Reaction, Intermediate, SEVERE HEARTBURN, 11/05/17) Severe Heartburn amiodarone (Verified Adverse Reaction, Intermediate, MADE HER COLD, 11/05/17 ) clindamycin (Verified Adverse Reaction, Mild, HEARTBURN, 11/05/17) Home Medication List Reviewed: Yes FDO-Mcipiy-Hzhbui Hx Patient Social History Employed/Student: retired Alcohol Use: Denies Use Recreational Drug Use: No Smoking Status: Never a Smoker 2nd Hand Smoke Exposure: No Recent Foreign Travel: No Recent Infectious Disease Expo: No Recent Hopitalizations: Yes (OCTOBER-) Physical Abuse Screen: No Sexual Abuse: No Immunizations Up To Date Tetanus Booster (TDap): Unknown Date of Pneumonia Vaccine: Jun 30, 2017 Date of Influenza Vaccine: Oct 17, 2017 Past Medical History Past medical history as discussed below Family Medical History Significant Family History: COPD (sister) Family Medical Hx Noncontributory to her current condition Constitutional: see HPI EENTM: see HPI, no symptoms reported Respiratory: see HPI, cough, dyspnea on exertion, No hemoptysis, No orthopnea, No phlegm, No short of breath, No stridor, No wheezing, No other Cardiovascular: see HPI, chest pain, No edema, No Hx of Intervention, No palpitations, No syncope, No vascular heart diseas, No other Gastrointestinal: see HPI Genitourinary: no symptoms reported, see HPI Musculoskeletal: no symptoms reported, see HPI Skin: see HPI Psychiatric/Neurological: No Symptoms Reported, See HPI Reviewed Test Results Reviewed Test Results Lab Laboratory Tests Test 01/02/18 11:10 01/03/18 05:25 Range/Units Urine Color MONTRELL H Urine Clarity SLIGHTLY CLOUDY Urine pH 6.5 5-9 Urine Specific [place] 1.010 L 1.016-1.022 Urine Protein 3+ H NEGATIVE Urine Glucose (UA) NEGATIVE NEGATIVE Urine Ketones NEGATIVE NEGATIVE Urine Nitrite NEGATIVE NEGATIVE Urine Bilirubin NEGATIVE NEGATIVE Urine Urobilinogen NORMAL NORMAL MG/DL Urine Leukocyte Esterase 3+ H NEGATIVE Urine RBC (Auto) 5+ H NEGATIVE Urine RBC >100 H /HPF Urine WBC 50-100 H /HPF Urine Squamous Epithelial Cells 10-25 H /HPF Urine Crystals NONE /LPF Urine Bacteria MODERATE H /HPF Urine Casts NONE /LPF Urine Mucus NEGATIVE /LPF Urine Yeast LARGE H /HPF Urine Culture Indicated YES White Blood Count 19.4 H 4.3-11.0 10^3/uL Red Blood Count 3.08 L 4.35-5.85 10^6/uL Hemoglobin 9.3 L 11.5-16.0 G/DL Hematocrit 29 L 35-52 % Mean Corpuscular Volume 93 80-99 FL Mean Corpuscular Hemoglobin 30 25-34 PG Mean Corpuscular Hemoglobin Concent 32 32-36 G/DL Red Cell Distribution Width 14.8 H 10.0-14.5 % Platelet Count 467 H 130-400 10^3/uL Mean Platelet Volume 8.8 7.4-10.4 FL Neutrophils (%) (Auto) 79 H 42-75 % Lymphocytes (%) (Auto) 10 L 12-44 % Monocytes (%) (Auto) 8 0-12 % Eosinophils (%) (Auto) 3 0-10 % Basophils (%) (Auto) 0 0-10 % Neutrophils # (Auto) 15.4 H 1.8-7.8 X 10^3 Lymphocytes # (Auto) 1.9 1.0-4.0 X 10^3 Monocytes # (Auto) 1.5 H 0.0-1.0 X 10^3 Eosinophils # (Auto) 0.7 H 0.0-0.3 10^3/uL Basophils # (Auto) 0.0 0.0-0.1 10^3/uL Prothrombin Time 32.6 H 12.2-14.7 SEC INR Comment 3.2 H 0.8-1.4 Sodium Level 140 135-145 MMOL/L Potassium Level 3.7 3.6-5.0 MMOL/L Chloride Level 105 98-107 MMOL/L Carbon Dioxide Level 27 21-32 MMOL/L Anion Gap 8 5-14 MMOL/L Blood Urea Nitrogen 24 H 7-18 MG/DL Creatinine 1.15 0.60-1.30 MG/DL Estimat Glomerular Filtration Rate 45 BUN/Creatinine Ratio 21 Glucose Level 121 H 70-105 MG/DL Calcium Level 9.0 8.5-10.1 MG/DL Physical Exam Vital Signs Vital Signs - First Documented 01/01/18 01/01/18 09:59 13:27 Temp 97.6 Pulse 96 Resp 18 B/P (MAP) 128/88 (101) Pulse Ox 98 O2 Delivery Room Air Capillary Refill : Less Than 3 Seconds General Appearance: No Apparent Distress, WD/WN Eyes: Bilateral Eye Normal Inspection, Bilateral Eye PERRL, Bilateral Eye EOMI HEENT: PERRL/EOMI, TMs Normal, Normal ENT Inspection, Pharynx Normal Neck: Full Range of Motion, Normal Inspection, Non Tender, Supple, Carotid Bruit Respiratory: Lungs Clear, Normal Breath Sounds, No Accessory Muscle Use, No Respiratory Distress, Crackles Cardiovascular: No Edema, No Gallop, No JVD, Normal Peripheral Pulses, Systolic Murmur, Irregularly Irregular Gastrointestinal: Normal Bowel Sounds, No Organomegaly, No Pulsatile Mass, Non Tender, Soft Back: Normal Inspection, No CVA Tenderness, No Vertebral Tenderness Extremity: Normal Capillary Refill, Normal Inspection, Normal Range of Motion, Non Tender, No Calf Tenderness, No Pedal Edema Neurologic/Psychiatric: Alert, Oriented x3, No Motor/Sensory Deficits, Normal Mood/Affect Skin: Normal Color, Warm/Dry Lymphatic: No Adenopathy A/P-Cardiology Admission Diagnosis Chest pain nonspecific etiology Pleural effusion Pneumonia Atrial fibrillation Assessment/Plan Chest pain nonspecific etiology, atypical in presentation, mainly pleuritic in nature, has pleural effusion and pulmonary infiltrate, receiving antibiotic, unlikely to be cardiac. Pleural effusion, history of thoracentesis, still having some residual effusion. Managed by Dr. Malhotra. Back pain and shoulder pain, chronic, no changes from baseline. Mild nonobstructive coronary artery disease, cardiac catheterization was done in 2009. Continue to monitor. Permanent atrial fibrillation, heart rate is controlled. Continue to monitor. [id number] score is 4, yearly risk of stroke without oral anticoagulation is 4 percent, has history of intolerance to amiodarone or Multaq. On Coumadin, INR is supratherapeutic, Coumadin is on hold, I will restart Coumadin today and continue to monitor daily INR Valvular heart disease with Severe mitral regurgitation noted on echocardiogram on June 09, 2015, repeat 2-D echocardiogram revealed mild to mod MR, mild AR. continue to monitor Pulmonary hypertension, most recent 2-D echocardiogram done March 2016 revealed PA pressure 30 mmHg. Continue to monitor. Hypertension, controlled. Monitor blood pressure. Hyperlipidemia, continue on current medications and monitor Mild bilateral nonobstructive carotid artery stenosis, last carotid ultrasound was done in August 2016. Continue to monitor. Anxiety Erythromelalgia, with reflex sympathetic dystrophy. Patient has been seen by Dr. Jama Fernandes in [place]. Peripheral neuropathy, patient is status post spinal stimulator. Clinical Quality Measures DVT/VTE Risk/Contraindication: Risk Factor Score Per Nursin RFS Level Per Nursing on Admit: 4+=Very High VIJAY SIDDIQUI MD Jan 03, 2018 09:57
[2018-01-03] MEDS: GABAPENTIN 100 MG (NEURONTIN) CAP PO SCH ×3 (10:10→20:26)
[2018-01-03] MEDS: LACTOBACILLUS Acidoph/Bulgar (LACTINEX/FLORANEX) TAB PO SCH (10:10)
[2018-01-03] MEDS: FUROSEMIDE 20 MG (LASIX) TAB PO SCH (10:10)
[2018-01-03] MEDS: LIDOCAINE (LIDODERM) 5% PATCH TOP SCH (10:17)
--- NOTE | 2018-01-03 10:22 | Progress Note-Hospitalist ---
Subjective HPI/CC On Admission Date Seen by Provider: Jan 03, 2018 Time Seen by Provider: 10:17 Pt is an 82yoCF known to me from recent admissions who presented to the ER with CC of cough and right sided chest pain with inspiration. She states this is similar to the symptoms she has when she is getting pneumonia. She was seen her on 12/29 and treated with Omnicef and Azithromycin but continued to worsen and and had more SOB. She denies any fevers or sick contacts. She denies any issues with swallowing or difficulty swallowing. She states her pain is only with inspiration and is on the right side and goes down her side. This started 4-5 days ago on the left side but progress to the right overnight. Subjective/Events-last exam Pt reports doing well and breathing better. She would like her Estrace cream restarted though. otherwise no concerns. Focused Exam Lactate Level Laboratory Tests 01/01/18 11:25: Lactic Acid Level 0.96 Objective Exam Vital Signs Vital Signs Date Time Temp Pulse Resp B/P (MAP) Pulse Ox O2 Delivery O2 Flow Rate FiO2 01/01/18 09:59 97.6 96 18 128/88 (101) 98 01/01/18 13:27 Room Air Capillary Refill : Less Than 3 Seconds General Appearance: No Apparent Distress Respiratory: Lungs Clear, No Respiratory Distress Cardiovascular: No Murmur, Irregularly Irregular Gastrointestinal: Normal Bowel Sounds, Non Tender, Soft Extremity: Swelling (bilateral lower extremities) Neurologic/Psychiatric: Alert, Oriented x3, Normal Mood/Affect Skin: Erythema (chronic ) Results/Procedures Lab Laboratory Tests 01/03/18 05:25 Patient resulted labs reviewed. Imaging: Reviewed Imaging Films, Reviewed Imaging Report Assessment/Plan Assessment and Plan Assess & Plan/Chief Complaint Pneumonia Diagnosis/Problems Diagnosis/Problems (1) Sepsis Status: Acute Assessment & Plan: RUL on CXR on admission Today's XR shows possible IMNI as well Lactic normal MRSA screen pending Continue Vanc and Zosyn- will DC Vanc is MRSA negative Qualifiers: Sepsis type: sepsis due to unspecified organism Qualified Codes: A41.9 - Sepsis, unspecified organism (2) Right upper lobe pneumonia Status: Acute Assessment & Plan: Seen on CXR Will continue Abx as above MAT protocol Pulm consulted, appreciate recs Qualifiers: Pneumonia type: due to unspecified organism Qualified Codes: J18.1 - Lobar pneumonia, unspecified organism (3) Paroxysmal atrial fibrillation Status: Chronic Assessment & Plan: Follows with Dr Lilly On Warfarin for anticoagulation- resume today Monitor on telemetry while acutely ill (4) Multiple allergies Status: Chronic Assessment & Plan: Discussed her multiple listed allergies and she is unsure why they are listed She states she has taken Sulfa products multiple times with no problems I called and confirmed with her pharmacy and she has filled twice on 10/04/16 and 10/30/16 with no reported issues Regarding her PCN allergy she complained of a rash at 16yo but she states she had PCN again multiple times in her twenties with no issues Discussed using Zosyn (penicillin family) while admitted and she would like to try it so she can have more options for oral antibiotics Discussed with Pharmacy and as has already received Cefepime- will try Zosyn tomorrow Regarding Levaquin allergy she states it after her INR and her PCP told her to say she was allergic and that she is not actually allergic Discussed with Pharmacy and will remove allergies from list as above Of note she is also unsure of her lopressor and hydrochlorothiazide allergy but states Dr Lilly told her she was allergic so was hesitant to remove those from list (5) Normocytic anemia Status: Chronic Assessment & Plan: Mild, near baseline Will trend (6) Prophylactic measure Assessment & Plan: Warfarin Saline lock HH diet Clinical Quality Measures DVT/VTE Risk/Contraindication: Risk Factor Score Per Nursin RFS Level Per Nursing on Admit: 4+=Very High KERWIN CARRERA MD Jan 03, 2018 10:22
[2018-01-03] MEDS: RT-ALBUTEROL/IPRATROPIUM 3 ML (DUONEB) VIAL INH SCH ×2 (10:49→20:24)
--- NOTE | 2018-01-03 11:09 | Occupational Ther Daily Note ---
OT Current Status-Daily Note Subjective Pt up ad betty in room. Pt agreed to therapy. No c/o pain. Mental Status/Objective Patient Orientation: Person, Place, Time, Situation Functional [place] Measure 0=Not Assessed/NA 4=Minimal Assistance 1=Total Assistance 5=Supervision or Setup 2=Maximal Assistance 6=Modified [place] 3=Moderate Assistance 7=Complete [place] ADL-Treatment Pt was in bathroom using toilet and grooming by self. When pt was finished, no SOA noted. RAMOS started discussion of energy conservation techniques and pt was able to state 3 plus more techniques that she uses at home already. After therapy, pt sitting in recliner with call light/phone in reach. All needs met in room. Other Treatment When RAMOS entered room, pt in bathroom completing toileting and grooming. Education OT Patient Education: Energy conservation Teaching Recipient: Patient Teaching Methods: Handout, Discussion Response to Teaching: Verbalize Understanding OT Short Term Goals Short Term Goals 1=Demonstrate adherence to instructed precautions during ADL tasks. 2=Patient will verbalize/demonstrate understanding of assistive devices/ modifications for ADL. 3=Patient will improve strength/tolerance for activity to enable patient to perform ADL's. OT Usp Goals Proposal Specialist Goals Time Frame: Jan 03, 2018 Pt will verbalize three techniques that she can use to conserve her energy for self care or home tasks Additional Goals: 1-Demonstrate ADL Tasks, 2-Verbalize Understanding 1=Demonstrate adherence to instructed precautions during ADL tasks. 2=Patient will verbalize/demonstrate understanding of assistive devices/ modifications for ADL. 3=Patient will improve strength/tolerance for activity to enable patient to perform ADL's. OT Education/Plan Problem List/Assessment Pt would benefit from skilled OT to increase her activity tolerance to be able to manage basic self care tasks Discharge Recommendations Plan/Recommendations: Continue POC Treatment Plan/Plan of Care Patient would benefit from OT for education, treatment and training to promote independence in ADL's, mobility, safety and/or upper extremity function for ADL' s. Plan of Care: OTHER (energy conservation education) Treatment Duration: Jan 03, 2018 Frequency: 3 times per week (or until goal met) Estimated Hrs Per Day: .25 hour per day Agreement: Yes Rehab Potential: Good Time/GCodes Start Time: 11:04 Stop Time: 11:24 Total Time Billed (hr/min): 20 Billed Treatment Time 1 visit-FA 1 (20 min) ANITA SANDOVAL Jan 03, 2018 11:09
[2018-01-03] MEDS: ESTRADIOL VAGINAL CREAM 42.5 GM (ESTRACE) VG SCH ×2 (11:33→20:27)
[2018-01-03] MEDS ORDERED: TROUGH ORDER-PHARMACY XX NR (13:00)
[2018-01-03] MEDS: VANCOMYCIN 1250 MG/NS 250 ML IVPB IV SCH ×2 (14:54)
--- NOTE | 2018-01-03 15:03 | Occ Therapy Progress Note ---
Therapy Progress Note Discussed pt's POC with OTR/L. Pt has met all goals for OT. Discharge pt 2017. ANITA SANDOVAL Jan 03, 2018 15:03
[2018-01-03 15:15] VITALS: BP 91/51
[2018-01-03] MEDS ORDERED: warFARin 2 MG (COUMADIN) TAB PO SCH (18:00)
[2018-01-03] MEDS: LIDOCAINE PATCH REMOVAL TP SCH (20:25)
[2018-01-03] MEDS: TEMAZEPAM 15 MG (RESTORIL) CAP PO SCH (20:26)
[2018-01-03] MEDS: DILTIAZEM 120 MG (CARDIZEM CD) CAP PO SCH (20:26)
[2018-01-03] MEDS: IBUPROFEN TABLET 200 MG TAB PO PRN (21:43)
[2018-01-04] VITALS (7 sets, daily range): BP systolic 91–156; BP diastolic 50–88
[2018-01-04] MEDS: PIPERACILLIN SODIUM/TAZOBACTAM 4.5 GM in NS (IVPB) 100 ML IV SCH ×3 (02:22→17:09)
[2018-01-04 04:40] LABS: BASOPHILS % (AUTO) 0 % (0-10); EOSINOPHILS # (AUTO) 0.6 10^3/uL (0.0-0.3); EOSINOPHILS % (AUTO) 4 % (0-10); HEMATOCRIT 27 % (35-52); HEMOGLOBIN 8.8 G/DL (11.5-16.0); LYMPHOCYTES # (AUTO) 1.8 X 10^3 (1.0-4.0); LYMPHOCYTES % (AUTO) 12 % (12-44); MEAN CORPUSCULAR HEMOGLOBIN 31 PG (25-34); MEAN CORPUSCULAR HGB CONC 33 G/DL (32-36); MEAN CORPUSCULAR VOLUME 93 FL (80-99); MONOCYTES # (AUTO) 0.9 X 10^3 (0.0-1.0); MONOCYTES % (AUTO) 6 % (0-12); NEUTROPHILS # (AUTO) 11.8 X 10^3 (1.8-7.8); NEUTROPHILS % (AUTO) 78 % (42-75); PLATELET COUNT 427 10^3/uL (130-400); RED BLOOD COUNT 2.87 10^6/uL (4.35-5.85); RED CELL DISTRIBUTION WIDTH 14.8 % (10.0-14.5)
[2018-01-04 04:53] LABS: CALCIUM 8.5 MG/DL (8.5-10.1); CREATININE SERUM 1.28 MG/DL (0.60-1.30); POTASSIUM 3.7 MMOL/L (3.6-5.0)
[2018-01-04] MEDS: KCL 10 MEQ TAB (MICRO K) PO SCH (05:49)
[2018-01-04] MEDS: CATHETER FLUSH 10 ML SYR IV SCH ×3 (05:49→20:19)
[2018-01-04] MEDS: RT-ALBUTEROL/IPRATROPIUM 3 ML (DUONEB) VIAL INH SCH ×2 (07:04→19:35)
[2018-01-04] MEDS: FUROSEMIDE 20 MG (LASIX) TAB PO SCH (07:56)
[2018-01-04] MEDS: LACTOBACILLUS Acidoph/Bulgar (LACTINEX/FLORANEX) TAB PO SCH (07:56)
[2018-01-04] MEDS: GABAPENTIN 100 MG (NEURONTIN) CAP PO SCH ×3 (07:56→20:18)
[2018-01-04] MEDS: LIDOCAINE (LIDODERM) 5% PATCH TOP SCH (07:57)
--- NOTE | 2018-01-04 10:40 | Cardiology Progress Note ---
Subjective Date Seen by Provider: Jan 04, 2018 Time Seen by Provider: 10:38 Subjective/Events-last exam Patient is in bed, feeling better, less pain, breathing better Review of Systems General: No Chills, No Night Sweats, No Fatigue, No Malaise, No Appetite, No Other HEENT: No Head Aches, No Visual Changes, No Eye Pain, No Ear Pain, No Dysphasia , No Sinus Congestion, No Post Nasal Drip, No Sore Throat, No Other Pulmonary: Dyspnea, No Cough, No Pleuritic Chest Pain, No Other Cardiovascular: Chest Pain, No: Orthopnea, Paroxysmal Noc. Dyspnea, Edema, Lt Headedness, Other Focused Exam Lactate Level 01/01/18 11:25: Lactic Acid Level 0.96 Objective-Cardiology Exam Last Set of Vital Signs Vital Signs 01/04/18 01/04/18 09:00 09:29 Temp 97.6 Pulse 112 Resp 18 B/P (MAP) 125/68 (87) Pulse Ox 97 O2 Delivery Room Air Capillary Refill : Less Than 3 Seconds I&O Intake and Output 01/04/18 00:00 Intake Total 2242.5 ml Output Total 1400 ml Balance 842.5 ml Intake Oral 1780 ml IV Total 462.5 ml Output Urine Total 1400 ml # Voids 1 # Bowel Movements 4 General: Alert, Oriented X3, Cooperative HEENT: Atraumatic, PERRLA Neck: Supple, No JVD, No Thyromegaly Lungs: Normal Air Movement, Other (Bilateral rhonchi) Heart: Normal S1, Normal S2, No Murmurs, Other (Irregular rhythm) Abdomen: Normal Bowel Sounds, Soft, No Tenderness, No Hepatosplenomegaly, No Masses Extremities: No Clubbing, No Cyanosis, No Edema, Normal Pulses, No Tenderness/ Swelling Skin: No Rashes, No Breakdown, No Significant Lesion Neuro: Normal Gait, Normal Speech, Strength at 5/5 X4 Ext, Normal Tone, Sensation Intact Psych/Mental Status: Mental Status NL, Mood NL Results Lab Laboratory Tests 01/04/18 04:20 A/P-Cardiology Admission Diagnosis Chest pain nonspecific etiology Pleural effusion Pneumonia Atrial fibrillation Assessment/Plan Chest pain nonspecific etiology, atypical in presentation, mainly pleuritic in nature, has pleural effusion and pulmonary infiltrate, receiving antibiotic, unlikely to be cardiac, reporting improvement at this time. Continue to monitor Pleural effusion, history of thoracentesis, still having some residual effusion. Managed by Dr. Malhotra. Back pain and shoulder pain, chronic, no changes from baseline. Mild nonobstructive coronary artery disease, cardiac catheterization was done in 2009. Continue to monitor. Permanent atrial fibrillation, heart rate is controlled. Continue to monitor. [id number] score is 4, yearly risk of stroke without oral anticoagulation is 4 percent, has history of intolerance to amiodarone or Multaq. On Coumadin, INR is 3.2 today, continue on Coumadin and monitor INR closely Valvular heart disease with Severe mitral regurgitation noted on echocardiogram on June 09, 2015, repeat 2-D echocardiogram revealed mild to mod MR, mild AR. continue to monitor Pulmonary hypertension, most recent 2-D echocardiogram done March 2016 revealed PA pressure 30 mmHg. Continue to monitor. Hypertension, controlled. Monitor blood pressure. Hyperlipidemia, continue on current medications and monitor Mild bilateral nonobstructive carotid artery stenosis, last carotid ultrasound was done in August 2016. Continue to monitor. Anxiety Erythromelalgia, with reflex sympathetic dystrophy. Patient has been seen by Dr. Jama Fernandes in [place]. Peripheral neuropathy, patient is status post spinal stimulator. Clinical Quality Measures DVT/VTE Risk/Contraindication: Risk Factor Score Per Nursin RFS Level Per Nursing on Admit: 4+=Very High VIJAY SIDDIQUI MD Jan 04, 2018 10:40
[2018-01-04] MEDS ORDERED: PATIENT MAY USE OWN MEDS, ALL MC SCH (11:00)
--- NOTE | 2018-01-04 12:14 | Progress Note-Hospitalist ---
Subjective HPI/CC On Admission Date Seen by Provider: Jan 04, 2018 Time Seen by Provider: 12:10 Pt is an 82yoCF known to me from recent admissions who presented to the ER with CC of cough and right sided chest pain with inspiration. She states this is similar to the symptoms she has when she is getting pneumonia. She was seen her on 12/29 and treated with Omnicef and Azithromycin but continued to worsen and and had more SOB. She denies any fevers or sick contacts. She denies any issues with swallowing or difficulty swallowing. She states her pain is only with inspiration and is on the right side and goes down her side. This started 4-5 days ago on the left side but progress to the right overnight. Subjective/Events-last exam Pt reports doing well. Breathing is better and less pain with deep breath. Eating and drinking well. No other concerns. Objective Exam Vital Signs Vital Signs Date Time Temp Pulse Resp B/P (MAP) Pulse Ox O2 Delivery O2 Flow Rate FiO2 01/01/18 09:59 97.6 96 18 128/88 (101) 98 01/01/18 13:27 Room Air Capillary Refill : Less Than 3 Seconds General Appearance: No Apparent Distress, WD/WN Respiratory: Lungs Clear, No Respiratory Distress Cardiovascular: No Murmur, Irregularly Irregular Gastrointestinal: Normal Bowel Sounds, Non Tender, Soft Extremity: Swelling (chronic- bilateral lower extremities) Neurologic/Psychiatric: Alert, Oriented x3, Normal Mood/Affect Skin: Erythema Results/Procedures Lab Laboratory Tests 01/04/18 04:20 Patient resulted labs reviewed. Imaging: Reviewed Imaging Films, Reviewed Imaging Report Assessment/Plan Assessment and Plan Assess & Plan/Chief Complaint Pneumonia Diagnosis/Problems Diagnosis/Problems (1) Sepsis Status: Resolved Assessment & Plan: RUL on CXR on admission, possible MINI as well on CXR from 01/03 Lactic normal MRSA screen pending Continue Zosyn, DC Vanc as MRSA screen negative Qualifiers: Sepsis type: sepsis due to unspecified organism Qualified Codes: A41.9 - Sepsis, unspecified organism (2) Right upper lobe pneumonia Status: Acute Assessment & Plan: Seen on CXR Will continue Abx as above MAT protocol Pulm consulted, appreciate recs Qualifiers: Pneumonia type: due to unspecified organism Qualified Codes: J18.1 - Lobar pneumonia, unspecified organism (3) Paroxysmal atrial fibrillation Status: Chronic Assessment & Plan: Follows with Dr Lilly On Warfarin for anticoagulation Monitor on telemetry while acutely ill (4) Multiple allergies Status: Chronic Assessment & Plan: Discussed her multiple listed allergies and she is unsure why they are listed She states she has taken Sulfa products multiple times with no problems I called and confirmed with her pharmacy and she has filled twice on 10/04/16 and 10/30/16 with no reported issues Regarding her PCN allergy she complained of a rash at 16yo but she states she had PCN again multiple times in her twenties with no issues Discussed using Zosyn (penicillin family) while admitted and she would like to try it so she can have more options for oral antibiotics Tolerating Zosyn well Regarding Levaquin allergy she states it after her INR and her PCP told her to say she was allergic and that she is not actually allergic Discussed with Pharmacy and will remove allergies from list as above Of note she is also unsure of her lopressor and hydrochlorothiazide allergy but states Dr Lilly told her she was allergic so was hesitant to remove those from list (5) Normocytic anemia Status: Chronic Assessment & Plan: Mild, near baseline Will trend (6) Prophylactic measure Assessment & Plan: Warfarin Saline lock HH diet Clinical Quality Measures DVT/VTE Risk/Contraindication: Risk Factor Score Per Nursin RFS Level Per Nursing on Admit: 4+=Very High KERWIN CARRERA MD Jan 04, 2018 12:14 pm
[2018-01-04] MEDS: IBUPROFEN TABLET 200 MG TAB PO PRN (17:15)
[2018-01-04] MEDS ORDERED: warFARin 2 MG (COUMADIN) TAB PO SCH (18:00)
[2018-01-04] MEDS: TEMAZEPAM 15 MG (RESTORIL) CAP PO SCH (20:18)
[2018-01-04] MEDS: DILTIAZEM 120 MG (CARDIZEM CD) CAP PO SCH (20:18)
[2018-01-04] MEDS: ESTRADIOL VAGINAL CREAM 42.5 GM (ESTRACE) VG SCH (20:18)
[2018-01-04] MEDS: LIDOCAINE PATCH REMOVAL TP SCH (20:19)
[2018-01-05] VITALS: BP 97/58
[2018-01-05] MEDS: PIPERACILLIN SODIUM/TAZOBACTAM 4.5 GM in NS (IVPB) 100 ML IV SCH ×2 (02:14→08:46)
[2018-01-05 03:48] VITALS: BP 114/67
[2018-01-05 04:47] LABS: BASOPHILS % (AUTO) 0 % (0-10); EOSINOPHILS # (AUTO) 0.6 10^3/uL (0.0-0.3); EOSINOPHILS % (AUTO) 5 % (0-10); HEMATOCRIT 30 % (35-52); HEMOGLOBIN 9.8 G/DL (11.5-16.0); LYMPHOCYTES # (AUTO) 1.8 X 10^3 (1.0-4.0); LYMPHOCYTES % (AUTO) 15 % (12-44); MEAN CORPUSCULAR HEMOGLOBIN 30 PG (25-34); MEAN CORPUSCULAR HGB CONC 33 G/DL (32-36); MEAN CORPUSCULAR VOLUME 92 FL (80-99); MEAN PLATELET VOLUME 8.9 FL (7.4-10.4); MONOCYTES # (AUTO) 0.9 X 10^3 (0.0-1.0); MONOCYTES % (AUTO) 7 % (0-12); NEUTROPHILS # (AUTO) 8.9 X 10^3 (1.8-7.8); NEUTROPHILS % (AUTO) 73 % (42-75); PLATELET COUNT 453 10^3/uL (130-400); RED BLOOD COUNT 3.23 10^6/uL (4.35-5.85); RED CELL DISTRIBUTION WIDTH 14.9 % (10.0-14.5); WHITE BLOOD COUNT 12.2 10^3/uL (4.3-11.0)
[2018-01-05 05:14] LABS: CALCIUM 9.2 MG/DL (8.5-10.1); CREATININE SERUM 1.21 MG/DL (0.60-1.30); POTASSIUM 3.5 MMOL/L (3.6-5.0)
[2018-01-05 05:18] LABS: PROTHROMBIN TIME PATIENT 46.8 SEC (12.2-14.7)
[2018-01-05 05:19] LABS: INR 5.1 (0.8-1.4)
[2018-01-05] MEDS: CATHETER FLUSH 10 ML SYR IV SCH ×3 (06:38→23:00)
[2018-01-05] MEDS: KCL 10 MEQ TAB (MICRO K) PO SCH (06:38)
[2018-01-05 08:00] VITALS: BP 132/86
[2018-01-05] MEDS: FUROSEMIDE 20 MG (LASIX) TAB PO SCH (08:40)
[2018-01-05] MEDS: LACTOBACILLUS Acidoph/Bulgar (LACTINEX/FLORANEX) TAB PO SCH (08:40)
[2018-01-05] MEDS: GABAPENTIN 100 MG (NEURONTIN) CAP PO SCH ×3 (08:41→20:00)
[2018-01-05] MEDS: LIDOCAINE (LIDODERM) 5% PATCH TOP SCH (08:41)
--- NOTE | 2018-01-05 11:35 | Cardiology Progress Note ---
Subjective Date Seen by Provider: Jan 05, 2018 Time Seen by Provider: 11:34 Subjective/Events-last exam patient is sitting in a chair, feeling better, complaining of chest pain appeared to be musculoskeletal. Breathing is better. No palpitation. Review of Systems General: No Chills, No Night Sweats, No Fatigue, No Malaise, No Appetite, No Other Pulmonary: No Dyspnea, No Cough, No Pleuritic Chest Pain, No Other Cardiovascular: Chest Pain, No: Palpitations, Orthopnea, Paroxysmal Noc. Dyspnea, Edema, Lt Headedness, Other Objective-Cardiology Exam Last Set of Vital Signs Vital Signs 01/05/18 01/05/18 08:00 09:00 Temp 98.2 Pulse 108 Resp 16 B/P (MAP) 132/86 (101) Pulse Ox 95 O2 Delivery Room Air Capillary Refill : Less Than 3 Seconds I&O Intake and Output 01/05/18 00:00 Intake Total 2050 ml Output Total 1800 ml Balance 250 ml Intake Oral 1850 ml IV Total 200 ml Output Urine Total 1800 ml # Voids 1 Daily Weight Change No General: Alert, Oriented X3, Cooperative HEENT: Atraumatic, PERRLA Neck: Supple, No JVD, No Thyromegaly Lungs: Normal Air Movement, Other (Bilateral rhonchi, improving) Heart: Normal S1, Normal S2, No Murmurs, Other (Irregular rhythm) Abdomen: Normal Bowel Sounds, Soft, No Tenderness, No Hepatosplenomegaly, No Masses Extremities: No Clubbing, No Cyanosis, No Edema, Normal Pulses, No Tenderness/ Swelling Skin: No Rashes, No Breakdown, No Significant Lesion Neuro: Normal Gait, Normal Speech, Strength at 5/5 X4 Ext, Normal Tone, Sensation Intact Psych/Mental Status: Mental Status NL, Mood NL Results Lab Laboratory Tests 01/05/18 04:20 A/P-Cardiology Admission Diagnosis Chest pain nonspecific etiology Pleural effusion Pneumonia Atrial fibrillation Assessment/Plan Chest pain nonspecific etiology, atypical in presentation, mainly pleuritic in nature, has pleural effusion and pulmonary infiltrate, receiving antibiotic, unlikely to be cardiac, continue to monitor. Pleural effusion, history of thoracentesis, still having some residual effusion. Managed by Dr. Malhotra. Back pain and shoulder pain, chronic, no changes from baseline. Mild nonobstructive coronary artery disease, cardiac catheterization was done in 2009. Continue to monitor. Permanent atrial fibrillation, heart rate is controlled. Continue to monitor. [id number] score is 4, yearly risk of stroke without oral anticoagulation is 4 percent, has history of intolerance to amiodarone or Multaq. On Coumadin, INR is 5.1 today, hold Coumadin and continue to monitor INR, I started her on Eliquis on the previous admission, patient expressed that she did not like the medication and prefer to be on Coumadin Valvular heart disease with Severe mitral regurgitation noted on echocardiogram on June 09, 2015, repeat 2-D echocardiogram revealed mild to mod MR, mild AR. continue to monitor Pulmonary hypertension, most recent 2-D echocardiogram done March 2016 revealed PA pressure 30 mmHg. Continue to monitor. Hypertension, controlled. Monitor blood pressure. Hyperlipidemia, continue on current medications and monitor Mild bilateral nonobstructive carotid artery stenosis, last carotid ultrasound was done in August 2016. Continue to monitor. Anxiety Erythromelalgia, with reflex sympathetic dystrophy. Patient has been seen by Dr. Jama Fernandes in [place]. Peripheral neuropathy, patient is status post spinal stimulator. Clinical Quality Measures DVT/VTE Risk/Contraindication: Risk Factor Score Per Nursin RFS Level Per Nursing on Admit: 4+=Very High VIJAY SIDDIQUI MD Jan 05, 2018 11:35
[2018-01-05 12:00] VITALS: BP 106/67
[2018-01-05] MEDS: RT-ALBUTEROL/IPRATROPIUM 3 ML (DUONEB) VIAL INH SCH ×2 (12:41→20:59)
--- NOTE | 2018-01-05 13:22 | Progress Note-Hospitalist ---
Subjective HPI/CC On Admission Date Seen by Provider: Jan 05, 2018 Time Seen by Provider: 13:17 Pt is an 82yoCF known to me from recent admissions who presented to the ER with CC of cough and right sided chest pain with inspiration. She states this is similar to the symptoms she has when she is getting pneumonia. She was seen her on 12/29 and treated with Omnicef and Azithromycin but continued to worsen and and had more SOB. She denies any fevers or sick contacts. She denies any issues with swallowing or difficulty swallowing. She states her pain is only with inspiration and is on the right side and goes down her side. This started 4-5 days ago on the left side but progress to the right overnight. Subjective/Events-last exam Pt reports doing okay but having some back pain from sleeping in the hospital bed. Has been declining Lidoderm patch. Also does not want to take too much Tylenol or Motrin as she doesn't want to get used it. No other complaints. Objective Exam Vital Signs Vital Signs Date Time Temp Pulse Resp B/P (MAP) Pulse Ox O2 Delivery O2 Flow Rate FiO2 01/01/18 09:59 97.6 96 18 128/88 (101) 98 01/01/18 13:27 Room Air Capillary Refill : Less Than 3 Seconds General Appearance: No Apparent Distress, WD/WN Respiratory: Lungs Clear, No Respiratory Distress Cardiovascular: Regular Rate, Rhythm, No Murmur Gastrointestinal: Normal Bowel Sounds, Non Tender, Soft Extremity: Swelling (chronic) Neurologic/Psychiatric: Alert, Oriented x3, Normal Mood/Affect Results/Procedures Lab Laboratory Tests 01/05/18 04:20 Patient resulted labs reviewed. Imaging: Reviewed Imaging Films, Reviewed Imaging Report Assessment/Plan Assessment and Plan Assess & Plan/Chief Complaint Pneumonia Diagnosis/Problems Diagnosis/Problems (1) Sepsis Status: Resolved Assessment & Plan: RUL on CXR on admission, possible MINI as well on CXR from 01/03 Lactic normal MRSA screen pending Continue Zosyn, DC Vanc as MRSA screen negative Will switch ti Augmentin today in preparation for DC tomorrow Qualifiers: Sepsis type: sepsis due to unspecified organism Qualified Codes: A41.9 - Sepsis, unspecified organism (2) Right upper lobe pneumonia Status: Acute Assessment & Plan: Seen on CXR but CT read as improving Will continue Abx as above MAT protocol Pulm consulted, appreciate recs Qualifiers: Pneumonia type: due to unspecified organism Qualified Codes: J18.1 - Lobar pneumonia, unspecified organism (3) Paroxysmal atrial fibrillation Status: Chronic Assessment & Plan: Follows with Dr Lilly On Warfarin for anticoagulation INR supratherapuetic today so held Monitor on telemetry while acutely ill (4) Multiple allergies Status: Chronic Assessment & Plan: Discussed her multiple listed allergies and she is unsure why they are listed She states she has taken Sulfa products multiple times with no problems I called and confirmed with her pharmacy and she has filled twice on 10/04/16 and 10/30/16 with no reported issues Regarding her PCN allergy she complained of a rash at 16yo but she states she had PCN again multiple times in her twenties with no issues Discussed using Zosyn (penicillin family) while admitted and she would like to try it so she can have more options for oral antibiotics Tolerating Zosyn well Regarding Levaquin allergy she states it after her INR and her PCP told her to say she was allergic and that she is not actually allergic Discussed with Pharmacy and will remove allergies from list as above Of note she is also unsure of her lopressor and hydrochlorothiazide allergy but states Dr Lilly told her she was allergic so was hesitant to remove those from list (5) Normocytic anemia Status: Chronic Assessment & Plan: Mild, near baseline Will trend (6) Prophylactic measure Assessment & Plan: Warfarin Saline lock HH diet Clinical Quality Measures DVT/VTE Risk/Contraindication: Risk Factor Score Per Nursin RFS Level Per Nursing on Admit: 4+=Very High KERWIN CARRERA MD Jan 05, 2018 13:21
[2018-01-05 16:00] VITALS: BP 109/65
[2018-01-05] MEDS: AUGMENTIN 875 MG TAB (AMOXICILLIN/CLAVULANATE) PO SCH (16:20)
[2018-01-05 20:00] VITALS: BP 135/72
[2018-01-05] MEDS: ESTRADIOL VAGINAL CREAM 42.5 GM (ESTRACE) VG SCH (20:00)
[2018-01-05] MEDS: IBUPROFEN TABLET 200 MG TAB PO PRN (20:00)
[2018-01-05] MEDS: DILTIAZEM 120 MG (CARDIZEM CD) CAP PO SCH (20:01)
[2018-01-05] MEDS: TEMAZEPAM 15 MG (RESTORIL) CAP PO SCH (23:00)
[2018-01-06] VITALS: BP 122/58
[2018-01-06] MEDS: KCL 10 MEQ TAB (MICRO K) PO SCH (06:08)
[2018-01-06] MEDS: AUGMENTIN 875 MG TAB (AMOXICILLIN/CLAVULANATE) PO SCH ×2 (06:08→17:13)
[2018-01-06] MEDS: CATHETER FLUSH 10 ML SYR IV SCH ×3 (06:09→21:56)
[2018-01-06 06:47] LABS: BASOPHILS % (AUTO) 0 % (0-10); EOSINOPHILS # (AUTO) 0.5 10^3/uL (0.0-0.3); EOSINOPHILS % (AUTO) 4 % (0-10); HEMATOCRIT 28 % (35-52); HEMOGLOBIN 9.2 G/DL (11.5-16.0); LYMPHOCYTES # (AUTO) 1.7 X 10^3 (1.0-4.0); LYMPHOCYTES % (AUTO) 14 % (12-44); MEAN CORPUSCULAR HEMOGLOBIN 30 PG (25-34); MEAN CORPUSCULAR HGB CONC 33 G/DL (32-36); MEAN CORPUSCULAR VOLUME 92 FL (80-99); MEAN PLATELET VOLUME 8.9 FL (7.4-10.4); MONOCYTES # (AUTO) 0.9 X 10^3 (0.0-1.0); MONOCYTES % (AUTO) 7 % (0-12); NEUTROPHILS # (AUTO) 8.8 X 10^3 (1.8-7.8); NEUTROPHILS % (AUTO) 74 % (42-75); PLATELET COUNT 432 10^3/uL (130-400); RED BLOOD COUNT 3.04 10^6/uL (4.35-5.85); RED CELL DISTRIBUTION WIDTH 14.8 % (10.0-14.5); WHITE BLOOD COUNT 11.9 10^3/uL (4.3-11.0)
[2018-01-06 07:03] LABS: CALCIUM 9.1 MG/DL (8.5-10.1); CREATININE SERUM 1.23 MG/DL (0.60-1.30); POTASSIUM 3.5 MMOL/L (3.6-5.0)
[2018-01-06 07:10] LABS: INR 6.4 (0.8-1.4); PROTHROMBIN TIME PATIENT 55.2 SEC (12.2-14.7)
[2018-01-06] MEDS: RT-ALBUTEROL/IPRATROPIUM 3 ML (DUONEB) VIAL INH SCH ×2 (07:44→19:16)
[2018-01-06 08:00] VITALS: BP 113/80
--- NOTE | 2018-01-06 08:00 | Pulmonary Progress Note ---
Subjective Time Seen by Provider: 06:37 Subjective/Events-last exam SOB is improved. Exam Exam Vital Signs Date Time Temp Pulse Resp B/P (MAP) Pulse Ox O2 Delivery O2 Flow Rate FiO2 01/06/18 07:45 98 Room Air 01/06/18 07:00 89 01/06/18 01:00 98 01/06/18 00:00 97.2 76 20 122/58 (79) 94 Room Air 01/05/18 21:10 Room Air 01/05/18 20:59 96 Room Air 01/05/18 20:00 100.0 105 22 135/72 (93) 100 Room Air 01/05/18 19:00 124 01/05/18 16:00 99.4 102 16 109/65 (80) 98 Room Air 01/05/18 13:00 101 01/05/18 12:40 92 Room Air 01/05/18 12:00 99.8 113 18 106/67 (80) 98 Room Air 01/05/18 09:00 95 Room Air 01/05/18 08:00 98.2 108 16 132/86 (101) 95 Room Air I & O 01/06/18 06:59 Intake Total 2090 ml Output Total 1550 ml Balance 540 ml General Appearance: No Apparent Distress, WD/WN HEENT: PERRL/EOMI, TMs Normal, Normal ENT Inspection, Pharynx Normal Neck: Full Range of Motion, Normal Inspection, Non Tender, Supple, Carotid Bruit Respiratory: Lungs Clear, No Respiratory Distress Cardiovascular: Regular Rate, Rhythm, No Murmur Capillary Refill: Less Than 3 Seconds Gastrointestinal: normal bowel sounds, non tender, soft Extremity: Swelling (chronic) Neurologic/Psychiatric: Alert, Oriented x3, Normal Mood/Affect Skin: Erythema Lymphatic: No Adenopathy Results Lab Laboratory Tests 01/05/18 04:20 01/06/18 06:14 Assessment/Plan Assessment/Plan pneumonia Tm 100.5 -repeat CXR -Currently on Augmentin Paroxysmal Afib -Cardiology following 232 SHITAL HUDSON DO Jan 06, 2018 07:59
[2018-01-06] MEDS: FUROSEMIDE 20 MG (LASIX) TAB PO SCH (08:28)
[2018-01-06] MEDS: GABAPENTIN 100 MG (NEURONTIN) CAP PO SCH ×3 (08:28→19:54)
[2018-01-06] MEDS: LACTOBACILLUS Acidoph/Bulgar (LACTINEX/FLORANEX) TAB PO SCH (08:28)
--- NOTE | 2018-01-06 08:55 | Diagnostic Imaging Report ---
INDICATION: Dry cough, nonproductive. TECHNIQUE: Two view chest 8:36 AM CORRELATION STUDY: 01/03/2018 FINDINGS: Heart size enlarged. Mediastinum appearing relatively stable. Biapical pleural thickening right greater than left. There is a slight irregular parenchymal density in the left suprahilar region, changed from prior study. Bilateral pleural effusions are present. Eccentric thoracic kyphotic curvature of the anteriorly wedged midthoracic vertebral bodies. Thoracic spine simulator is present. Additionally, there is an irregular what appears to be likely pleural based density posteriorly on the lateral projection over the mid thoracic spine, changed from prior study. IMPRESSION: 1. Bilateral pleural effusions stable to slightly smaller. 2. More peripheral parenchymal density in the left upper lobe, appears diminished. There is new parenchymal density in the left suprahilar region. 3. Development of small pleural-based nodule on the lateral projection. Given interval development, may be reflective of perhaps small loculated area of fluid. Dictated by: Dictated on workstation # [id number]
--- NOTE | 2018-01-06 11:33 | Cardiology Progress Note ---
Subjective Date Seen by Provider: Jan 06, 2018 Time Seen by Provider: 10:15 Subjective/Events-last exam Patient is sitting in a chair, feeling better, still having right-sided chest pain with deep inspiration. No shortness of breath Review of Systems General: No Chills, No Night Sweats, No Fatigue, No Malaise, No Appetite, No Other HEENT: No Head Aches, No Visual Changes, No Eye Pain, No Ear Pain, No Dysphasia , No Sinus Congestion, No Post Nasal Drip, No Sore Throat, No Other Pulmonary: No Dyspnea, No Cough, No Pleuritic Chest Pain, No Other Cardiovascular: Chest Pain, No: Palpitations, Orthopnea, Paroxysmal Noc. Dyspnea, Edema, Lt Headedness, Other Objective-Cardiology Exam Last Set of Vital Signs Vital Signs 01/06/18 01/06/18 08:00 09:00 Temp 97.1 Pulse 116 Resp 16 B/P (MAP) 113/80 (91) Pulse Ox 96 O2 Delivery Room Air Capillary Refill : Less Than 3 Seconds I&O Intake and Output 01/06/18 00:00 Intake Total 2040 ml Output Total 1550 ml Balance 490 ml Intake Oral 1940 ml IV Total 100 ml Output Urine Total 1550 ml # Voids 3 Daily Weight Change No General: Alert, Oriented X3, Cooperative HEENT: Atraumatic, PERRLA Neck: Supple, No JVD, No Thyromegaly Lungs: Normal Air Movement, Other (Bilateral rhonchi, improving) Heart: Normal S1, Normal S2, No Murmurs, Other (Irregular rhythm) Abdomen: Normal Bowel Sounds, Soft, No Tenderness, No Hepatosplenomegaly, No Masses Extremities: No Clubbing, No Cyanosis, No Edema, Normal Pulses, No Tenderness/ Swelling Skin: No Rashes, No Breakdown, No Significant Lesion Neuro: Normal Gait, Normal Speech, Strength at 5/5 X4 Ext, Normal Tone, Sensation Intact Psych/Mental Status: Mental Status NL, Mood NL Results Lab Laboratory Tests 01/06/18 06:14 A/P-Cardiology Admission Diagnosis Chest pain nonspecific etiology Pleural effusion Pneumonia Atrial fibrillation Assessment/Plan Chest pain nonspecific etiology, atypical in presentation, mainly pleuritic in nature, has pleural effusion and pulmonary infiltrate, receiving antibiotic, unlikely to be cardiac, continue to monitor. Pleural effusion, history of thoracentesis, still having some residual effusion. Managed by Dr. Malhotra. Back pain and shoulder pain, chronic, no changes from baseline. Mild nonobstructive coronary artery disease, cardiac catheterization was done in 2009. Continue to monitor. Permanent atrial fibrillation, heart rate is controlled. Continue to monitor. [id number] score is 4, yearly risk of stroke without oral anticoagulation is 4 percent, has history of intolerance to amiodarone or Multaq. On Coumadin, INR is 5.1 today, hold Coumadin and continue to monitor INR, I started her on Eliquis on the previous admission, patient expressed that she did not like the medication and prefer to be on Coumadin Valvular heart disease with Severe mitral regurgitation noted on echocardiogram on June 09, 2015, repeat 2-D echocardiogram revealed mild to mod MR, mild AR. continue to monitor Pulmonary hypertension, most recent 2-D echocardiogram done March 2016 revealed PA pressure 30 mmHg. Continue to monitor. Hypertension, controlled. Monitor blood pressure. Hyperlipidemia, continue on current medications and monitor Mild bilateral nonobstructive carotid artery stenosis, last carotid ultrasound was done in August 2016. Continue to monitor. Anxiety Erythromelalgia, with reflex sympathetic dystrophy. Patient has been seen by Dr. Jama Fernandes in [place]. Peripheral neuropathy, patient is status post spinal stimulator. Clinical Quality Measures DVT/VTE Risk/Contraindication: Risk Factor Score Per Nursin RFS Level Per Nursing on Admit: 4+=Very High VIJAY SIDDIQUI MD Jan 06, 2018 11:33
--- NOTE | 2018-01-06 15:29 | Progress Note-Hospitalist ---
Progress Note HPI/CC on Admission Pt is an 82yoCF known to me from recent admissions who presented to the ER with CC of cough and right sided chest pain with inspiration. She states this is similar to the symptoms she has when she is getting pneumonia. She was seen her on 12/29 and treated with Omnicef and Azithromycin but continued to worsen and and had more SOB. She denies any fevers or sick contacts. She denies any issues with swallowing or difficulty swallowing. She states her pain is only with inspiration and is on the right side and goes down her side. This started 4-5 days ago on the left side but progress to the right overnight. Progress Notes/Assess & Plan Date Seen 01/06/18 Time Seen by Provider: 15:00 Assessment & Plan The patient's an 82-year-old white female known to me from previous admission. She has had several recent bouts of pneumonia. She presented to the ER 5 days ago with complaints of chest pain particularly when taking a deep breath. Chest x-ray in the emergency room showed worsening of the previously existing infiltrates. Her white count at admission was 16,000. It then henri to 19,000 and has since fallen to 11,900 today. She has been afebrile. UA showed WBCs in high number. Culture has only grown Nury. She is on Coumadin chronically. Her initial INR was 3.3. The Coumadin was ordered held on 01/03. She was however taking an alternating dose and the alternating higher dose was not held until 01/05. The INR henri to 5.1 yesterday and 6.4 today. Physical exam: She is sitting in the chair at bedside. She responds to questioning in a somewhat grumpy fashion. Lungs show distant breath sounds. CV was irregular. Extremities showed 2+ pedal edema and a reddish purple discoloration bilaterally. Impression: Recurrent/indolent pneumonia. 2.atrial fibrillation. 3.hyper anticoagulation. 4.venous stasis edema. 5.reflex sympathetic dystrophy by history. Plan: Continue IV antibiotics. SONIA GROVES MD Jan 06, 2018 15:29
[2018-01-06 15:50] VITALS: BP 134/73
[2018-01-06] MEDS: IBUPROFEN TABLET 200 MG TAB PO PRN (17:13)
[2018-01-06] MEDS: ACETAMINOPHEN 500 MG TAB (TYLENOL) PO PRN (18:00)
[2018-01-06] MEDS: DILTIAZEM 120 MG (CARDIZEM CD) CAP PO SCH (19:53)
[2018-01-06] MEDS: ESTRADIOL VAGINAL CREAM 42.5 GM (ESTRACE) VG SCH (19:54)
[2018-01-06] MEDS: TEMAZEPAM 15 MG (RESTORIL) CAP PO SCH (19:54)
[2018-01-06 20:40] VITALS: BP 103/66
[2018-01-07] VITALS (7 sets, daily range): BP systolic 89–140; BP diastolic 53–98
--- NOTE | 2018-01-07 04:18 | Pulmonary Progress Note ---
Subjective Time Seen by Provider: 04:18 Subjective/Events-last exam No complications noted. Exam Exam Vital Signs Date Time Temp Pulse Resp B/P (MAP) Pulse Ox O2 Delivery O2 Flow Rate FiO2 01/07/18 01:00 86 01/07/18 00:18 97.7 93 16 89/65 (73) 98 Room Air 01/06/18 20:40 98.6 116 16 103/66 (78) 97 Room Air 01/06/18 20:40 Room Air 01/06/18 19:16 95 Room Air 01/06/18 19:00 109 01/06/18 15:50 100.1 119 16 134/73 (93) 94 Room Air 01/06/18 13:00 92 01/06/18 09:00 96 Room Air 01/06/18 08:00 97.1 116 16 113/80 (91) 96 Room Air 01/06/18 07:45 98 Room Air 01/06/18 07:00 89 I & O 01/07/18 07:00 Intake Total 1520 ml Output Total 950 ml Balance 570 ml General Appearance: No Apparent Distress, WD/WN HEENT: PERRL/EOMI, TMs Normal, Normal ENT Inspection, Pharynx Normal Neck: Full Range of Motion, Normal Inspection, Non Tender, Supple, Carotid Bruit Respiratory: Lungs Clear, No Respiratory Distress Cardiovascular: Regular Rate, Rhythm, No Murmur Capillary Refill: Less Than 3 Seconds Gastrointestinal: normal bowel sounds, non tender, soft Extremity: Swelling (chronic) Neurologic/Psychiatric: Alert, Oriented x3, Normal Mood/Affect Skin: Erythema Lymphatic: No Adenopathy Results Lab Laboratory Tests 01/05/18 04:20 01/06/18 06:14 Assessment/Plan Assessment/Plan pneumonia Tm 100.1 -repeat CXR 8 wks after discharge -Will f.u with pt in my office in 3-4 wks. -Currently on Augmentin Paroxysmal Afib -Cardiology following -Coumadin is on hold secondary to coagulopathy 232 SHITAL HUDSON DO Jan 07, 2018 04:18
[2018-01-07] MEDS: KCL 10 MEQ TAB (MICRO K) PO SCH (06:02)
[2018-01-07] MEDS: AUGMENTIN 875 MG TAB (AMOXICILLIN/CLAVULANATE) PO SCH ×2 (06:02→16:27)
[2018-01-07] MEDS: CATHETER FLUSH 10 ML SYR IV SCH ×3 (06:02→20:06)
[2018-01-07 06:26] LABS: BASOPHILS % (AUTO) 0 % (0-10); EOSINOPHILS # (AUTO) 0.5 10^3/uL (0.0-0.3); EOSINOPHILS % (AUTO) 3 % (0-10); HEMATOCRIT 28 % (35-52); HEMOGLOBIN 9.2 G/DL (11.5-16.0); LYMPHOCYTES # (AUTO) 1.6 X 10^3 (1.0-4.0); LYMPHOCYTES % (AUTO) 9 % (12-44); MEAN CORPUSCULAR HEMOGLOBIN 30 PG (25-34); MEAN CORPUSCULAR HGB CONC 33 G/DL (32-36); MEAN CORPUSCULAR VOLUME 92 FL (80-99); MONOCYTES # (AUTO) 0.8 X 10^3 (0.0-1.0); MONOCYTES % (AUTO) 4 % (0-12); NEUTROPHILS # (AUTO) 15.7 X 10^3 (1.8-7.8); NEUTROPHILS % (AUTO) 85 % (42-75); PLATELET COUNT 426 10^3/uL (130-400); RED BLOOD COUNT 3.03 10^6/uL (4.35-5.85); RED CELL DISTRIBUTION WIDTH 14.6 % (10.0-14.5); WHITE BLOOD COUNT 18.7 10^3/uL (4.3-11.0)
[2018-01-07 06:47] LABS: CALCIUM 9.2 MG/DL (8.5-10.1); CREATININE SERUM 1.06 MG/DL (0.60-1.30); POTASSIUM 3.9 MMOL/L (3.6-5.0)
[2018-01-07] MEDS: RT-ALBUTEROL/IPRATROPIUM 3 ML (DUONEB) VIAL INH SCH ×2 (07:25→19:30)
--- NOTE | 2018-01-07 08:01 | Cardiology Progress Note ---
Subjective Date Seen by Provider: Jan 07, 2018 Time Seen by Provider: 07:59 Subjective/Events-last exam Patient is laying down in bed, still having some shortness of breath, slightly tachycardic, still having right-sided pleuritic chest pain. Review of Systems General: No Chills, No Night Sweats, No Fatigue, No Malaise, No Appetite, No Other HEENT: No Head Aches, No Visual Changes, No Eye Pain, No Ear Pain, No Dysphasia , No Sinus Congestion, No Post Nasal Drip, No Sore Throat, No Other Pulmonary: Dyspnea, Cough, Pleuritic Chest Pain, No Other Cardiovascular: Chest Pain, No: Palpitations, Orthopnea, Paroxysmal Noc. Dyspnea, Edema, Lt Headedness, Other Objective-Cardiology Exam Last Set of Vital Signs Vital Signs 01/07/18 01/07/18 01/07/18 04:46 07:25 07:28 Temp 98.0 Pulse 111 Resp 17 B/P (MAP) 97/66 (76) Pulse Ox 95 O2 Delivery Room Air Capillary Refill : Less Than 3 Seconds I&O Intake and Output 01/07/18 00:00 Intake Total 1720 ml Output Total 1450 ml Balance 270 ml Intake Oral 1720 ml Output Urine Total 1450 ml # Voids 4 # Bowel Movements 1 General: Alert, Oriented X3, Cooperative HEENT: Atraumatic, PERRLA Neck: Supple, No JVD, No Thyromegaly Lungs: Normal Air Movement, Other (Mild wheezing) Heart: Normal S1, Normal S2, No Murmurs, Other (Atrial fibrillation) Abdomen: Normal Bowel Sounds, Soft, No Tenderness, No Hepatosplenomegaly, No Masses Extremities: No Clubbing, No Cyanosis, No Edema, Normal Pulses, No Tenderness/ Swelling Skin: No Rashes, No Breakdown, No Significant Lesion Neuro: Normal Gait, Normal Speech, Strength at 5/5 X4 Ext, Normal Tone, Sensation Intact Psych/Mental Status: Mental Status NL, Mood NL Results Lab Laboratory Tests 01/07/18 06:00 A/P-Cardiology Admission Diagnosis Chest pain nonspecific etiology Pleural effusion Pneumonia Atrial fibrillation Assessment/Plan Chest pain nonspecific etiology, atypical in presentation, mainly pleuritic in nature, has pleural effusion and pulmonary infiltrate, receiving antibiotic, unlikely to be cardiac, continue to monitor. Pleural effusion, history of thoracentesis, still having some residual effusion. Managed by Dr. Malhotra. Back pain and shoulder pain, chronic, no changes from baseline. Mild nonobstructive coronary artery disease, cardiac catheterization was done in 2009. Continue to monitor. Permanent atrial fibrillation, heart rate is controlled, slightly more tachycardic today. Continue on current medication and monitor. [id number] score is 4, yearly risk of stroke without oral anticoagulation is 4 percent, has history of intolerance to amiodarone or Multaq. Coumadin is on hold, continue to monitor serial INR, monitor H&H Valvular heart disease with Severe mitral regurgitation noted on echocardiogram on June 09, 2015, repeat 2-D echocardiogram revealed mild to mod MR, mild AR. continue to monitor Pulmonary hypertension, most recent 2-D echocardiogram done March 2016 revealed PA pressure 30 mmHg. Continue to monitor. Hypertension, controlled. Monitor blood pressure. Hyperlipidemia, continue on current medications and monitor Mild bilateral nonobstructive carotid artery stenosis, last carotid ultrasound was done in August 2016. Continue to monitor. Anxiety Erythromelalgia, with reflex sympathetic dystrophy. Patient has been seen by Dr. Jama Fernandes in [place]. Peripheral neuropathy, patient is status post spinal stimulator. Clinical Quality Measures DVT/VTE Risk/Contraindication: Risk Factor Score Per Nursin RFS Level Per Nursing on Admit: 4+=Very High VIJAY SIDDIQUI MD Jan 07, 2018 08:01
[2018-01-07] MEDS: GABAPENTIN 100 MG (NEURONTIN) CAP PO SCH ×3 (09:03→20:06)
[2018-01-07] MEDS: FUROSEMIDE 20 MG (LASIX) TAB PO SCH (09:03)
[2018-01-07] MEDS: LACTOBACILLUS Acidoph/Bulgar (LACTINEX/FLORANEX) TAB PO SCH (09:04)
--- NOTE | 2018-01-07 15:21 | Progress Note-Hospitalist ---
Progress Note HPI/CC on Admission Pt is an 82yoCF known to me from recent admissions who presented to the ER with CC of cough and right sided chest pain with inspiration. She states this is similar to the symptoms she has when she is getting pneumonia. She was seen her on 12/29 and treated with Omnicef and Azithromycin but continued to worsen and and had more SOB. She denies any fevers or sick contacts. She denies any issues with swallowing or difficulty swallowing. She states her pain is only with inspiration and is on the right side and goes down her side. This started 4-5 days ago on the left side but progress to the right overnight. Progress Notes/Assess & Plan Date Seen 01/07/18 Time Seen by Provider: 15:19 Admission Dx/Process The patient appears more alert today than yesterday. He is afebrile and the vital signs are normal. He remains on pressure support. His white count has fallen from 16,000 TO 8,100. This is day number 3 of IV antibiotics. He had no questions or concerns. Physical exam: Breath sounds are distant and shallow. CV is regular. Abdomen is soft. There is no apparent pedal edema Impression: Pneumonia with evidence of improvement. Plan: Continue IV fluids and antibiotics. Assessment & Plan The patient's an 82-year-old white female known to me from previous admission. She has had several recent bouts of pneumonia. She presented to the ER 5 days ago with complaints of chest pain particularly when taking a deep breath. Chest x-ray in the emergency room showed worsening of the previously existing infiltrates. Her white count at admission was 16,000. It then henri to 19,000 and has since fallen to 11,900 today. She has been afebrile. UA showed WBCs in high number. Culture has only grown Nury. She is on Coumadin chronically. Her initial INR was 3.3. The Coumadin was ordered held on 01/03. She was however taking an alternating dose and the alternating higher dose was not held until 01/05. The INR henri to 5.1 yesterday and 6.4 today. Physical exam: She is sitting in the chair at bedside. She responds to questioning in a somewhat grumpy fashion. Lungs show distant breath sounds. CV was irregular. Extremities showed 2+ pedal edema and a reddish purple discoloration bilaterally. Impression: Recurrent/indolent pneumonia. 2.atrial fibrillation. 3.hyper anticoagulation. 4.venous stasis edema. 5.reflex sympathetic dystrophy by history. Plan: Continue IV antibiotics. SONIA GROVES MD Jan 07, 2018 15:21
[2018-01-07] MEDS: IBUPROFEN TABLET 200 MG TAB PO PRN (16:27)
[2018-01-07] MEDS: ACETAMINOPHEN 500 MG TAB (TYLENOL) PO PRN (17:46)
[2018-01-07] MEDS: DILTIAZEM 120 MG (CARDIZEM CD) CAP PO SCH (20:06)
[2018-01-07] MEDS: TEMAZEPAM 15 MG (RESTORIL) CAP PO SCH (20:06)
[2018-01-07] MEDS: ESTRADIOL VAGINAL CREAM 42.5 GM (ESTRACE) VG SCH (20:06)
[2018-01-08 00:06] VITALS: BP 125/71
[2018-01-08 04:40] VITALS: BP 121/70
[2018-01-08] MEDS ORDERED: PHARMACY TO DOSE IV SCH (05:30)
[2018-01-08] MEDS ORDERED: PIPERACILLIN SODIUM/TAZOBACTAM 4.5 GM in D5W 100 ML IVPB 100 ML IV SCH (05:30)
--- NOTE | 2018-01-08 05:33 | Pulmonary Progress Note ---
Subjective Time Seen by Provider: 05:33 Subjective/Events-last exam pt had fever of 101 last night. Nonproductive cough, denies dysuria. Pt states urine is very dark and red. Exam Exam Vital Signs Date Time Temp Pulse Resp B/P (MAP) Pulse Ox O2 Delivery O2 Flow Rate FiO2 01/08/18 04:40 98.6 97 17 121/70 (87) 96 Room Air 01/08/18 00:06 97.8 92 16 125/71 (89) 97 Room Air 01/07/18 21:00 Room Air 01/07/18 19:55 99.4 125 16 102/53 (69) 96 Room Air 01/07/18 19:30 94 Room Air 01/07/18 17:46 101.0 01/07/18 17:08 100.7 01/07/18 17:00 100.4 01/07/18 16:27 101.2 01/07/18 15:25 101.1 102 18 140/77 (98) 98 Room Air 01/07/18 13:00 108 01/07/18 12:00 98.7 94 18 112/73 (86) 98 Room Air 01/07/18 09:00 Room Air 01/07/18 08:00 98.8 81 18 127/98 (108) 98 Room Air 01/07/18 07:28 111 95 01/07/18 07:25 95 Room Air 01/07/18 07:00 108 I & O 01/08/18 07:00 Intake Total 1080 ml Output Total 1800 ml Balance -720 ml General Appearance: No Apparent Distress, WD/WN HEENT: PERRL/EOMI, TMs Normal, Normal ENT Inspection, Pharynx Normal Neck: Full Range of Motion, Normal Inspection, Non Tender, Supple, Carotid Bruit Respiratory: Lungs Clear, No Respiratory Distress Cardiovascular: Regular Rate, Rhythm, No Murmur Capillary Refill: Less Than 3 Seconds Gastrointestinal: normal bowel sounds, non tender, soft Extremity: Normal Capillary Refill, Non Tender, No Calf Tenderness, Swelling ( chronic) Neurologic/Psychiatric: Alert, Oriented x3, Normal Mood/Affect Skin: Erythema Lymphatic: No Adenopathy Results Lab Laboratory Tests 01/06/18 06:14 01/07/18 06:00 Assessment/Plan Assessment/Plan pneumonia -Worsening leukocytosis and Tm is now 101\ -repeat CXR, berger cultures -Currently on Augmentin - change to vanco, zosyn and check berger cultures Paroxysmal Afib -Cardiology following -Coumadin is on hold secondary to coagulopathy 233 SHITAL HUDSON DO Jan 08, 2018 05:33
[2018-01-08 05:55] LABS: BASOPHILS % (AUTO) 0 % (0-10); EOSINOPHILS # (AUTO) 0.5 10^3/uL (0.0-0.3); EOSINOPHILS % (AUTO) 3 % (0-10); HEMATOCRIT 29 % (35-52); HEMOGLOBIN 9.4 G/DL (11.5-16.0); LYMPHOCYTES # (AUTO) 1.5 X 10^3 (1.0-4.0); LYMPHOCYTES % (AUTO) 10 % (12-44); MEAN CORPUSCULAR HEMOGLOBIN 30 PG (25-34); MEAN CORPUSCULAR HGB CONC 32 G/DL (32-36); MEAN CORPUSCULAR VOLUME 92 FL (80-99); MEAN PLATELET VOLUME 8.9 FL (7.4-10.4); MONOCYTES # (AUTO) 0.8 X 10^3 (0.0-1.0); MONOCYTES % (AUTO) 6 % (0-12); NEUTROPHILS # (AUTO) 11.2 X 10^3 (1.8-7.8); NEUTROPHILS % (AUTO) 81 % (42-75); PLATELET COUNT 418 10^3/uL (130-400); RED BLOOD COUNT 3.18 10^6/uL (4.35-5.85); RED CELL DISTRIBUTION WIDTH 14.9 % (10.0-14.5); WHITE BLOOD COUNT 13.9 10^3/uL (4.3-11.0)
[2018-01-08 05:56] LABS: INR 3.6 (0.8-1.4); PROTHROMBIN TIME PATIENT 35.7 SEC (12.2-14.7)
[2018-01-08] MEDS: KCL 10 MEQ TAB (MICRO K) PO SCH (06:01)
[2018-01-08] MEDS: CATHETER FLUSH 10 ML SYR IV SCH (06:02)
[2018-01-08 06:04] LABS: CALCIUM 9.5 MG/DL (8.5-10.1); CREATININE SERUM 1.41 MG/DL (0.60-1.30); POTASSIUM 3.9 MMOL/L (3.6-5.0)
[2018-01-08] MEDS ORDERED: NS IV 1000 ML 1,000 ML IV SCH (06:15)
[2018-01-08] MEDS ORDERED: VANCOMYCIN 1500 MG/NS 500 ML IVPB IV NR ×2 (06:30)
[2018-01-08 06:49] LABS: BILIRUBIN,URINE NEGATIVE (NEGATIVE); CLARITY,URINE CLEAR; GLUCOSE, URINE (UA) NEGATIVE (NEGATIVE); KETONES,URINE NEGATIVE (NEGATIVE); LEUKOCYTE ESTERASE ,URINE 3+ (NEGATIVE); NITRITE,URINE NEGATIVE (NEGATIVE); PH,URINE 7 (5-9); PROTEIN,URINE 2+ (NEGATIVE); UROBILINOGEN,URINE NORMAL (NORMAL)
[2018-01-08 06:56] LABS: BACTERIA,URINE TRACE /HPF; COLOR,URINE PINK; RBC,URINE >100 /HPF
[2018-01-08] MEDS: RT-ALBUTEROL/IPRATROPIUM 3 ML (DUONEB) VIAL INH SCH (06:56)
--- NOTE | 2018-01-08 07:52 | Diagnostic Imaging Report ---
INDICATION: Pneumonia. TECHNIQUE: Single frontal view of the chest. COMPARISON: 01/06/2018 FINDINGS: Lung volumes are mildly large. There is minimally increased airspace opacity in the medial right upper lobe. Mild opacities are seen in the lung bases bilaterally, with a stable small left pleural effusion. There is stable mild cardiomegaly. No pneumothorax is seen. Spinal neurostimulator is noted, no acute osseous abnormality is seen. IMPRESSION: 1. Stable bibasilar opacities, with small left pleural effusion. 2. Minimally increased airspace opacities in the medial right upper lobe, may represent atelectasis or infiltrate. Dictated by: Dictated on workstation # [id number]
[2018-01-08 08:00] VITALS: BP 129/67
[2018-01-08] MEDS: NS IV 1000 ML 1,000 ML IV SCH ×2 (08:28→08:52)
--- NOTE | 2018-01-08 08:47 | Cardiology Progress Note ---
Subjective Date Seen by Provider: Jan 08, 2018 Time Seen by Provider: 08:41 Subjective/Events-last exam Patient is sitting up in chair, no new complaints. Denies any CP or palpitations. Reports fever last night. Having slightly productive cough. Focused Exam Lactate Level 01/08/18 05:53: Lactic Acid Level 0.95 Lactic Acid Level Laboratory Tests Test 01/08/18 05:53 Lactic Acid Level 0.95 MMOL/L (0.50-2.00) Objective-Cardiology Exam Last Set of Vital Signs Vital Signs 01/08/18 08:00 Temp 96.9 Pulse 129 Resp 18 B/P (MAP) 129/67 (87) Pulse Ox 91 O2 Delivery Room Air Capillary Refill : Less Than 3 Seconds I&O Intake and Output 01/08/18 00:00 Intake Total 1180 ml Output Total 2500 ml Balance -1320 ml Intake Oral 1180 ml Output Urine Total 2500 ml # Bowel Movements 1 General: Alert, Oriented X3, Cooperative HEENT: Atraumatic, PERRLA Neck: Supple, No JVD, No Thyromegaly Lungs: Normal Air Movement, Other (Mild wheezing) Heart: Normal S1, Normal S2, No Murmurs, Other (Atrial fibrillation) Abdomen: Normal Bowel Sounds, Soft, No Tenderness, No Hepatosplenomegaly, No Masses Extremities: No Clubbing, No Cyanosis, No Edema, Normal Pulses, No Tenderness/ Swelling Skin: No Rashes, No Breakdown, No Significant Lesion Neuro: Normal Gait, Normal Speech, Strength at 5/5 X4 Ext, Normal Tone, Sensation Intact Psych/Mental Status: Mental Status NL, Mood NL Results Lab Laboratory Tests 01/08/18 05:31 A/P-Cardiology Admission Diagnosis Chest pain nonspecific etiology Pleural effusion Pneumonia Atrial fibrillation Assessment/Plan Chest pain nonspecific etiology, atypical in presentation, mainly pleuritic in nature, has pleural effusion and pulmonary infiltrate, receiving antibiotic, unlikely to be cardiac, continue to monitor. Pleural effusion, history of thoracentesis, still having some residual effusion. Managed by Dr. Malhotra. Pneumonia- continue antibiotic, management per Dr. Malhotra Back pain and shoulder pain, chronic, no changes from baseline. Mild nonobstructive coronary artery disease, cardiac catheterization was done in 2009. Continue to monitor. Permanent atrial fibrillation, continue to monitor, was slightly tachycardic yesterday, better today. [id number] score is 4, yearly risk of stroke without oral anticoagulation is 4 percent, has history of intolerance to amiodarone or Multaq. Coumadin is on hold, continue to monitor serial INR, monitor H&H Valvular heart disease with Severe mitral regurgitation noted on echocardiogram on June 09, 2015, repeat 2-D echocardiogram revealed mild to mod MR, mild AR. continue to monitor Pulmonary hypertension, most recent 2-D echocardiogram done March 2016 revealed PA pressure 30 mmHg. Continue to monitor. Hypertension, controlled. Monitor blood pressure. Hyperlipidemia, continue on current medications and monitor Mild bilateral nonobstructive carotid artery stenosis, last carotid ultrasound was done in August 2016. Continue to monitor. Anxiety Erythromelalgia, with reflex sympathetic dystrophy. Patient has been seen by Dr. Jama Fernandes in [place]. Peripheral neuropathy, patient is status post spinal stimulator. Clinical Quality Measures DVT/VTE Risk/Contraindication: Risk Factor Score Per Nursin RFS Level Per Nursing on Admit: 4+=Very High CK BATEMAN Jan 08, 2018 08:47
[2018-01-08] MEDS: GABAPENTIN 100 MG (NEURONTIN) CAP PO SCH (08:52)
[2018-01-08] MEDS: LACTOBACILLUS Acidoph/Bulgar (LACTINEX/FLORANEX) TAB PO SCH (08:52)
[2018-01-08] MEDS: FUROSEMIDE 20 MG (LASIX) TAB PO SCH (08:54)
[2018-01-08] MEDS ORDERED: NS 1000 ML IV BAG IV SCH ×2 (09:00)
--- NOTE | 2018-01-08 11:45 | Discharge Summary-Hospitalist ---
Diagnosis/Chief Complaint Date of Admission Jan 01, 2018 at 13:13 Date of Discharge Admission Diagnosis The patient appears more alert today than yesterday. He is afebrile and the vital signs are normal. He remains on pressure support. His white count has fallen from 16,000 TO 8,100. This is day number 3 of IV antibiotics. He had no questions or concerns. Physical exam: Breath sounds are distant and shallow. CV is regular. Abdomen is soft. There is no apparent pedal edema Impression: Pneumonia with evidence of improvement. Plan: Continue IV fluids and antibiotics. Discharge Diagnosis (1) Sepsis Status: Resolved Assessment & Plan: RUL on CXR on admission, possible MINI as well on CXR from 01/03 Lactic normal MRSA screen pending Continue Zosyn, DC Vanc as MRSA screen negative Will switch ti Augmentin today in preparation for DC tomorrow (2) Right upper lobe pneumonia Status: Acute Assessment & Plan: Seen on CXR but CT read as improving Will continue Abx as above MAT protocol Pulm consulted, appreciate recs (3) Paroxysmal atrial fibrillation Status: Chronic Assessment & Plan: Follows with Dr Lilly On Warfarin for anticoagulation INR supratherapuetic today so held Monitor on telemetry while acutely ill (4) Multiple allergies Status: Chronic Assessment & Plan: Discussed her multiple listed allergies and she is unsure why they are listed She states she has taken Sulfa products multiple times with no problems I called and confirmed with her pharmacy and she has filled twice on 10/04/16 and 10/30/16 with no reported issues Regarding her PCN allergy she complained of a rash at 16yo but she states she had PCN again multiple times in her twenties with no issues Discussed using Zosyn (penicillin family) while admitted and she would like to try it so she can have more options for oral antibiotics Tolerating Zosyn well Regarding Levaquin allergy she states it after her INR and her PCP told her to say she was allergic and that she is not actually allergic Discussed with Pharmacy and will remove allergies from list as above Of note she is also unsure of her lopressor and hydrochlorothiazide allergy but states Dr Lilly told her she was allergic so was hesitant to remove those from list (5) Normocytic anemia Status: Chronic Assessment & Plan: Mild, near baseline Will trend (6) Prophylactic measure Assessment & Plan: Warfarin Saline lock HH diet Discharge Summary Discharge Physical Exam Allergies: Coded Allergies: dronedarone (Verified Allergy, Unknown, 04/12/16) hydrochlorothiazide (Verified Allergy, Unknown, 04/12/16) metoprolol (Unverified Allergy, Unknown, 04/18/16) Tetracyclines (Verified Adverse Reaction, Intermediate, SEVERE HEARTBURN, 11/05/17) Severe Heartburn amiodarone (Verified Adverse Reaction, Intermediate, MADE HER COLD, 11/05/17 ) clindamycin (Verified Adverse Reaction, Mild, HEARTBURN, 11/05/17) Vitals & I&Os Vital Signs Date Time Temp Pulse Resp B/P (MAP) Pulse Ox O2 Delivery O2 Flow Rate FiO2 01/08/18 11:49 98.4 104 18 143/99 (114) 95 Room Air General Appearance: Alert, Oriented X3, Cooperative Respiratory: Other (crackles noted lower lobes) Skin: No Rashes, No Breakdown Neuro: Normal Gait, Normal Speech, Strength at 5/5 X4 Ext Psych/Mental Status: Mental Status NL, Mood NL Hospital Course Hospital course: Patient had an uneventful acute [facility] hospital course although was lengthy. She did have multiple hospital stays in the last several months for recurrent pneumonia and bronchitis so Dr. Malhotra was consulted and followed after sepsis was resolved and switched over to oral steroids and PO antibiotics. Her white blood cell count continued to be elevated prompting reevaluation in going back on IV antibiotics of Zosyn and vancomycin to cover for any type or resistant organism. Overall she remained stable she was very fearful about discharging going home out of fear of returning back to the hospital which unsure if we can modify the course considering the advanced age and comorbidities that we'll try her best to place on swing bed finish IV antibiotics and nebulizer treatments and oxygen supplementation and optimize her 's best we can before discharge to decrease chance for readmission. Labs (last 24 hrs) Laboratory Tests 01/08/18 05:31: White Blood Count 13.9H, Red Blood Count 3.18L, Hemoglobin 9.4L, Hematocrit 29L , Mean Corpuscular Volume 92, Mean Corpuscular Hemoglobin 30, Mean Corpuscular Hemoglobin Concent 32, Red Cell Distribution Width 14.9H, Platelet Count 418H, Mean Platelet Volume 8.9, Neutrophils (%) (Auto) 81H, Lymphocytes (%) (Auto) 10L , Monocytes (%) (Auto) 6, Eosinophils (%) (Auto) 3, Basophils (%) (Auto) 0, Neutrophils # (Auto) 11.2H, Lymphocytes # (Auto) 1.5, Monocytes # (Auto) 0.8, Eosinophils # (Auto) 0.5H, Basophils # (Auto) 0.0, Prothrombin Time 35.7H, INR Comment 3.6H, Sodium Level 139, Potassium Level 3.9, Chloride Level 106, Carbon Dioxide Level 22, Anion Gap 11, Blood Urea Nitrogen 18, Creatinine 1.41H, Estimat Glomerular Filtration Rate 36, BUN/Creatinine Ratio 13, Glucose Level 101, Calcium Level 9.5 01/08/18 05:53: Lactic Acid Level 0.95 01/08/18 06:40: Urine Color PINK, Urine Clarity CLEAR, Urine pH 7, Urine Specific [place] 1.015L , Urine Protein 2+H, Urine Glucose (UA) NEGATIVE, Urine Ketones NEGATIVE, Urine Nitrite NEGATIVE, Urine Bilirubin NEGATIVE, Urine Urobilinogen NORMAL, Urine Leukocyte Esterase 3+H, Urine RBC (Auto) 5+H, Urine RBC >100H, Urine WBC 5-10H, Urine Squamous Epithelial Cells 2-5, Urine Crystals NONE, Urine Bacteria TRACE, Urine Casts NONE, Urine Mucus NEGATIVE, Urine Culture Indicated YES Microbiology 01/01/18 Blood Culture - Final, Complete No growth 01/02/18 MRSA Screen - Final, Complete MRSA not isolated 01/02/18 Urine Culture - Final, Complete Presumptive Nury Albicans Patient resulted labs reviewed. Pending Labs Laboratory Tests 01/08/18 05:31: White Blood Count 13.9, Red Blood Count 3.18, Hemoglobin 9.4, Hematocrit 29, Mean Corpuscular Volume 92, Mean Corpuscular Hemoglobin 30, Mean Corpuscular Hemoglobin Concent 32, Red Cell Distribution Width 14.9, Platelet Count 418, Mean Platelet Volume 8.9, Neutrophils (%) (Auto) 81, Lymphocytes (%) (Auto) 10, Monocytes (%) (Auto) 6, Eosinophils (%) (Auto) 3, Basophils (%) (Auto) 0, Neutrophils # (Auto) 11.2, Lymphocytes # (Auto) 1.5, Monocytes # (Auto) 0.8, Eosinophils # (Auto) 0.5, Basophils # (Auto) 0.0, Prothrombin Time 35.7, INR Comment 3.6, Sodium Level 139, Potassium Level 3.9, Chloride Level 106, Carbon Dioxide Level 22, Anion Gap 11, Blood Urea Nitrogen 18, Creatinine 1.41, Estimat Glomerular Filtration Rate 36, BUN/Creatinine Ratio 13, Glucose Level 101, Calcium Level 9.5 01/08/18 05:53: Lactic Acid Level 0.95 01/08/18 06:40: Urine Color PINK, Urine Clarity CLEAR, Urine pH 7, Urine Specific [place] 1.015 , Urine Protein 2+, Urine Glucose (UA) NEGATIVE, Urine Ketones NEGATIVE, Urine Nitrite NEGATIVE, Urine Bilirubin NEGATIVE, Urine Urobilinogen NORMAL, Urine Leukocyte Esterase 3+, Urine RBC (Auto) 5+, Urine RBC >100, Urine WBC 5-10, Urine Squamous Epithelial Cells 2-5, Urine Crystals NONE, Urine Bacteria TRACE, Urine Casts NONE, Urine Mucus NEGATIVE, Urine Culture Indicated YES Imaging: Reviewed Imaging Films, Reviewed Imaging Report Discussion & Recommendations Discharge Planning: <30 minutes discharge planning Discharge Home Medications: Active Scripts Active Cefdinir 300 Mg Capsule 300 Mg PO BID Azithromycin 250 Mg Tablet 250 Mg PO UD TAKE 2 TABLETS ON DAY ONE THEN TAKE 1 TABLET DAILY FOR FOUR MORE DAYS Reported Tylenol Extra Strength (Acetaminophen) 500 Mg Tablet 500-1,000 Mg PO Q6H PRN Ibuprofen 200 Mg Tablet 400 Mg PO TID PRN Warfarin Sodium 2 Mg Tablet 4 Mg PO SUTUWETHSA TAKES 2 (2MG) TABLETS Warfarin Sodium 2 Mg Tablet 2 Mg PO MOFR Klor-Con M10 (Potassium Chloride) 10 Meq Tab.er.prt 10 Meq PO DAILY Furosemide 20 Mg Tablet 20 Mg PO DAILY Vitamin D3 (Cholecalciferol (Vitamin D3)) 2,000 Unit Capsule 2,000 Unit PO DAILY Centrum Silver Women Tablet (Multivits-Min/Iron/FA/Lutein) 1 Each Tablet 1 Tab PO DAILY Citracal + D Maximum Caplet (Calcium Citrate/Vitamin D3) 1 Each Tablet 1 Tab PO 1300 Methadone HCl 10 Mg Tablet 5 Mg PO DAILY PRN TAKES 1/2 (10MG) TABLET Magnesium (Magnesium Oxide) 250 Mg Tablet 250 Mg PO DAILY Probiotic (Lactobacillus Combination No.4) 1 Each Capsule 1 Cap PO DAILY Ketotifen Fumarate 5 Ml Drops 1 Drop OU DAILY PRN Flonase Allergy Relief (Fluticasone Propionate) 9.9 Ml [place].susp 1 [place] NS DAILY PRN Sf 5000 Plus (Sodium Fluoride) 51 Gm Cream..g. DT HS Calci-Chew (Calcium Carbonate) 500 Mg Tab.chew 500 Mg PO DAILY Gabapentin 100 Mg Capsule 100 Mg PO TID Triazolam 0.25 Mg Tablet 0.25 Mg PO HS Cardizem LA (Diltiazem HCl) 120 Mg Tab.er.24h 120 Mg PO HS Fish Oil 1,200 mg Fish Oil (Fish Oil/Dha/Epa) 1 Each Capsule 1,200 Mg PO TID Estrace Cream (Estradiol) 42.5 Gm Cream.appl TP HS Instructions to patient/family Please see electronic discharge instructions given to patient. Clinical Quality Measures DVT/VTE Risk/Contraindication: Risk Factor Score Per Nursin RFS Level Per Nursing on Admit: 4+=Very High Problem Qualifiers (1) Sepsis: Sepsis type: sepsis due to unspecified organism Qualified Codes: A41.9 - Sepsis, unspecified organism (2) Right upper lobe pneumonia: Pneumonia type: due to unspecified organism Qualified Codes: J18.1 - Lobar pneumonia, unspecified organism DOLORES WEEKS DO Jan 08, 2018 11:45
[2018-01-08 11:49] VITALS: BP 143/99
[2018-01-09] MEDS ORDERED: VANCOMYCIN 1 GM/NS 250 ML IVPB IV SCH ×2 (07:00)
== END 2018-01-08 12:02 | disposition swing bed (61) | DRG 871 ==
LOC: EDUNIT# 09:54 → ER 09:56 → ENRESERV 12:27 → 4TH 13:13
PROVIDERS: ADMIT Family Medicine; ATTEND Family Medicine
DX: A41.9 Sepsis, unspecified organism (principal); J18.9 Pneumonia, unspecified organism; J90 Pleural effusion, not elsewhere classified; R07.81 Pleurodynia; G90.50 Complex regional pain syndrome I, unspecified; I27.20 Pulmonary hypertension, unspecified; I08.0 Rheumatic disorders of both mitral and aortic valves; Z66 Do not resuscitate; I48.0 Paroxysmal atrial fibrillation; I10 Essential (primary) hypertension; I65.23 Occlusion and stenosis of bilateral carotid arteries; G62.9 Polyneuropathy, unspecified; F41.9 Anxiety disorder, unspecified; K21.9 Gastro-esophageal reflux disease without esophagitis; E78.5 Hyperlipidemia, unspecified; D64.9 Anemia, unspecified; I87.8 Other specified disorders of veins; J30.2 Other seasonal allergic rhinitis; M54.2 Cervicalgia; M54.16 Radiculopathy, lumbar region; M40.209 Unspecified kyphosis, site unspecified; M81.0 Age-related osteoporosis without current pathological fracture; G47.9 Sleep disorder, unspecified; I65.29 Occlusion and stenosis of unspecified carotid artery; K59.09 Other constipation; Z87.440 Personal history of urinary (tract) infections
CPT/HCPCS: 36415; 71045; 71046; 71275; 80048; 80053; 80202; 81000; 83605; 83880; 85007; 85025; 85027; 85610; 87040; 87081; 87088; 94640; 94760; 96365; 96375

== ENCOUNTER 2018-01-08 11:59 | Inpatient (IN) | payer MEDICARE, OTHER ==
[~2018-01-08] VITALS: Ht 160 cm; Wt 61.2 kg
[~2018-01-08 11:59] MED LIST changes: +ACET-2267 PO; +FURO20TA4 PO; +IBUP-2055 PO; +POTA10TA14 PO
[2018-01-08] MEDS ORDERED: PHARMACY TO DOSE IV SCH (12:15)
[2018-01-08] MEDS ORDERED: METHADONE 10 MG (DOLOPHINE) TAB PO PRN (12:15)
[2018-01-08] MEDS ORDERED: REGADENOSON 0.4 MG/5 ML SYR (LEXISCAN) IV ONE (12:15)
[2018-01-08] MEDS ORDERED: ACETAMINOPHEN 500 MG TAB (TYLENOL) PO PRN (12:15)
[2018-01-08] MEDS ORDERED: RT-ALBUTEROL/IPRATROPIUM 3 ML (DUONEB) VIAL INH PRN (13:15)
[2018-01-08] MEDS: PIPERACILLIN SODIUM/TAZOBACTAM 4.5 GM in D5W 100 ML IVPB 100 ML IV SCH ×2 (13:58→21:02)
[2018-01-08] MEDS: GABAPENTIN 100 MG (NEURONTIN) CAP PO SCH ×2 (13:59→21:01)
[2018-01-08] MEDS: CATHETER FLUSH 10 ML SYR IV SCH ×2 (13:59→21:02)
--- NOTE | 2018-01-08 14:30 | Cardiology Progress Note ---
Subjective Date Seen by Provider: Jan 08, 2018 Time Seen by Provider: 11:00 Subjective/Events-last exam patient is complaining of mild pleuritic pain, had low-grade fever last night Review of Systems General: No Chills, No Night Sweats, No Fatigue, No Malaise, No Appetite, No Other HEENT: No Head Aches, No Visual Changes, No Eye Pain, No Ear Pain, No Dysphasia , No Sinus Congestion, No Post Nasal Drip, No Sore Throat, No Other Pulmonary: Dyspnea; No Cough, No Pleuritic Chest Pain, No Other Cardiovascular: Chest Pain; No: Palpitations, Orthopnea, Paroxysmal Noc. Dyspnea, Edema, Lt Headedness, Other Objective-Cardiology Exam Last Set of Vital Signs Capillary Refill : General: Alert, Oriented X3, Cooperative HEENT: Atraumatic, PERRLA Neck: Supple, No JVD, No Thyromegaly Lungs: Clear to Auscultation, Normal Air Movement Heart: Regular Rate, Normal S1, Normal S2, No Murmurs Abdomen: Normal Bowel Sounds, Soft, No Tenderness, No Hepatosplenomegaly, No Masses Extremities: No Clubbing, No Cyanosis, No Edema, Normal Pulses, No Tenderness/ Swelling Skin: No Rashes, No Breakdown, No Significant Lesion Neuro: Normal Gait, Normal Speech, Strength at 5/5 X4 Ext, Normal Tone, Sensation Intact Psych/Mental Status: Mental Status NL, Mood NL A/P-Cardiology Admission Diagnosis chest pain nonspecific etiology Pneumonia Pleural effusion Shortness of breath Assessment/Plan Chest pain nonspecific etiology, atypical in presentation, mainly pleuritic in nature, has pleural effusion and pulmonary infiltrate, receiving antibiotic, unlikely to be cardiac, continue to monitor. Pleural effusion, history of thoracentesis, still having some residual effusion. Managed by Dr. Malhotra. Pneumonia- continue antibiotic, management per Dr. Malhotra Back pain and shoulder pain, chronic, no changes from baseline. Mild nonobstructive coronary artery disease, cardiac catheterization was done in 2009. Continue to monitor. Permanent atrial fibrillation, continue to monitor, was slightly tachycardic yesterday, better today. [id number] score is 4, yearly risk of stroke without oral anticoagulation is 4 percent, has history of intolerance to amiodarone or Multaq. Coumadin is on hold, continue to monitor serial INR, monitor H&H Valvular heart disease with Severe mitral regurgitation noted on echocardiogram on June 09, 2015, repeat 2-D echocardiogram revealed mild to mod MR, mild AR. continue to monitor Pulmonary hypertension, most recent 2-D echocardiogram done March 2016 revealed PA pressure 30 mmHg. Continue to monitor. Hypertension, controlled. Monitor blood pressure. Hyperlipidemia, continue on current medications and monitor Mild bilateral nonobstructive carotid artery stenosis, last carotid ultrasound was done in August 2016. Continue to monitor. Anxiety Erythromelalgia, with reflex sympathetic dystrophy. Patient has been seen by Dr. Jama Fernandes in [place]. Peripheral neuropathy, patient is status post spinal stimulator. Clinical Quality Measures DVT/VTE Risk/Contraindication: Risk Factor Score Per Nursin VIJAY SIDDIQUI MD Jan 08, 2018 14:30
--- NOTE | 2018-01-08 14:41 | Occupational Therapy Eval ---
OT Evaluation-General/PLF Medical Diagnosis Admission Date Jan 08, 2018 at 12:05 Medical Diagnosis: UTI Onset Date: Jan 08, 2018 Therapy Diagnosis Therapy Diagnosis: Weakness Height/Weight Height (Feet): 5 Height (Inches): 3.00 Weight (Pounds): 135 Weight (Ounces): 0.0 Weight Bear Status Weight Bearing Restriction: Weight Bearing/Tolerated Referral Physician: Dr. Nye Referral Reason: Activity Tolerance, Self Care, Evaluation/Treatment, Strengthening/ROM Medical History Pertinent Medical History: Atrial Fib, GERD, HTN, Neuropathy, Renal Insufficiency Additional Medical History chronic back pain, anxiety Current History Pt. states, "I just can't get over this pneumonia." Reviewed History: Yes Social History Home: Single Level Current Living Status: Alone Entry Into Home: Stairs With Railing Steps Into Home: 3 Sister lives two doors down. ADL-Prior Level of Function ADL PLOF Comments Pt. was independent with daily tasks prior to hospitalization. DME/Equipment: Bath Chair, Tub/Shower DME/Equipment Comments Pt. has a cane. OT Current Status Subjective Pt. states, "I always have pain." Pt. does not report a pain level, but states that she has neuropathy which causes pain. Pt. wears gloves on hands. Appearance Pt. up in chair. Pt. has already dressed, bathed, has makeup on. Pt. states that she did all of this on her own. Mental Status/Objective Patient Orientation: Person, Place Attachments: IV Current Glasses/Contacts: Yes Hand Dominance: Right Upper Extremity ROM WFL Upper Extremity Strength 3+/5 bilateral UE strength ADL-Treatment Functional [place] Measure 0=Not Assessed/NA 4=Minimal Assistance 1=Total Assistance 5=Supervision or Setup 2=Maximal Assistance 6=Modified [place] 3=Moderate Assistance 7=Complete IndependenceIRFPAI Quality Coding Scale 6 Independent with activity with or without an assistive device 5 Patient requires set up or clean up by helper. Patient completes activity by themselves 4 Supervision or touching assist (CGA). [place] provide cues , steadying assist 3 The helper provides less than half the effort to complete the activity 2 The helper provides more than half the effort to complete the activity 1 Dependent. The helper does all the effort to complete an activity 7 Patient refused to complete or attempt activity 9 The patient did not perform the activity before the current illness or injury 88 Not attempted due to Medical conditions or safety concerns Pt. ambulated with SBA with walker approximately 300 feet. Tolerated this well. Pt. states that she does all of her own ADLs. Education OT Patient Education: Correct positioning, Exercise program, Progress toward Goal/Update tx plan, Purpose of tx/functional activities, Reviewed precautions, Rehab process, Transfer techniques Teaching Recipient: Patient Teaching Methods: Demonstration, Discussion Response to Teaching: Verbalize Understanding, Return Demonstration OT Short Term Goals Short Term Goals 1=Demonstrate adherence to instructed precautions during ADL tasks. 2=Patient will verbalize/demonstrate understanding of assistive devices/ modifications for ADL. 3=Patient will improve strength/tolerance for activity to enable patient to perform ADL's. OT Detention Goals Fish Processing Supervisor Goals Time Frame: Jan 15, 2018 Bathing(FIM): 5 Upper Body Dressing(FIM): 6 Lower Body Dressing(FIM): 6 Toileting(FIM): 6 Toileting Hygiene (QC): 6 Transfers (B,C,W/C) (FIM): 6 Toilet/Commode Transfer(FIM): 6 Toilet/Commode Transfer (QC): 6 Shower Transfer(FIM): 5 Additional Goals: 1-Demonstrate ADL Tasks, 2-Verbalize Understanding, 3- ImproveStrength/Nieves 1=Demonstrate adherence to instructed precautions during ADL tasks. 2=Patient will verbalize/demonstrate understanding of assistive devices/ modifications for ADL. 3=Patient will improve strength/tolerance for activity to enable patient to perform ADL's. OT Education/Plan Problem List/Assessment Assessment: Decreased Activ Tolerance, Impaired I ADL's Discharge Recommendations Plan/Recommendations: Continue POC Therapy D/C Recommendations: Home w/ Family Support Target Placement Home with family support. Treatment Plan/Plan of Care Treatment,Training & Education: Yes Patient would benefit from OT for education, treatment and training to promote independence in ADL's, mobility, safety and/or upper extremity function for ADL' s. Plan of Care: ADL Retraining, Functional Mobility, UE Funct Exercise/Act Treatment Duration: Jan 15, 2018 Frequency: 5 times per week Estimated Hrs Per Day: .5 hour per day Agreement: Yes Rehab Potential: Good Time/GCodes Start Time: 14:10 Stop Time: 14:35 Total Time Billed (hr/min): 25 Billed Treatment Time 1, EVL x 10minutes, FA x 15minutes LUCÍA LONGO OT Jan 08, 2018 14:41
--- NOTE | 2018-01-08 16:03 | Physical Therapy Evaluation ---
PT Evaluation-General Medical Diagnosis Admission Date Jan 08, 2018 at 12:05 Medical Diagnosis: UTI Onset Date: Jan 08, 2018 Therapy Diagnosis Therapy Diagnosis: impaired mobility, balance, endurance Height/Weight Height (Feet): 5 Height (Inches): 3.00 Weight (Pounds): 135 Weight (Ounces): 0.0 Weight Bear Status Right Lower Extremity: Right Weight Bearing/Tolerated Left Lower Extremity: Left Weight Bearing/Tolerated Referral Physician: Dr. Nye Reason for Referral: Evaluation/Treatment Medical History Pertinent Medical History: Atrial Fib, GERD, HTN, Neuropathy, Renal Insufficiency Reviewed History: Yes Social History Home: Single Level Current Living Status: Alone Entry Into Home: Stairs With Railing PT Steps Into Home: 3 Patient states she lives 2 doors down from her sister Prior/Core FIM Prior Level of Function Functional [place] Measure 0=Not Assessed/NA 4=Minimal Assistance 1=Total Assistance 5=Supervision or Setup 2=Maximal Assistance 6=Modified [place] 3=Moderate Assistance 7=Complete [place] Bed Mobility: 7 Transfers (B,C,W/C) (FIM): 7 Gait: 7 PT Evaluation-Current Subjective Patient sitting in recliner pre tx, agrees to PT, states she has constant pain all over of varying degrees. Pt/Family Goals "to get rid of this pneumonia" Objective Patient Orientation: Normal For Age Attachments: IV ROM/Strength ROM Lower Extremities WNL Strenght Lower Extremities 4/5 gross bilateral lower extremities Neuromuscular (Tone, Coordination, Reflexes) NT Sensory Vision: Wears Glasses Hearing: Functional Hand Dominance: Right Sensation Right Lower Extremit: Intact Sensation Left Lower Extremity: Intact Transfers Functional [place] Measure 0=Not Assessed/NA 4=Minimal Assistance 1=Total Assistance 5=Supervision or Setup 2=Maximal Assistance 6=Modified [place] 3=Moderate Assistance 7=Complete [place] Transfers (B, C, W/C) (FIM): 7 Scootin Rollin Supine to/from Sit: 7 Sit to/from Stand: 7 Sit to Lying (QC): 6 Lying to Sitting/Side of Bed(Q: 6 Sit to Stand (QC): 6 Chair/Dpy-hw-Jhjix Xfer(QC): 6 Gait Does the Patient Walk?: Yes Mode of Locomotion: Walk Anticipated Mode of Locomotion: Walk Gait (FIM): 6 Distance: 200' Walk 50 ft with 2 Turns(QC): 6 Walk 150 ft (QC): 6 Gait Assistive Device: FWW Comments/Gait Description Patient can ambulate in the call way 200' with a rolling walker or holding on to side rail in hallway with mod I, no LOB but she is slightly unsteady when ambulating in the hallway without anything to hold onto. No SOB Balance Sitting Static: Normal Sitting Dynamic: Normal Standing Static: Normal Standing Dynamic: Good Assessment/Needs Patient has impaired mobility, balance, endurance with pneumonia. She is not at risk for a fall if she uses a walker but she does need somebody with her while she has an IV. Rehab Potential: Good PT Short Term Goals Short Term Goals Time Frame: Jan 15, 2018 Transfers (B,C,W/C) (FIM): 7 Gait (FIM): 7 Gait Distance Comment: 300' Gait Assistive Device: None PT Plan Problem List Problem List: Activity Tolerance, Functional Strength, Safety, Balance, Gait Treatment/Plan Treatment Plan: Continue Plan of Care Treatment Plan: Education, Functional Activity Nieves, Functional Strength, Gait , Safety, Therapeutic Exercise, Transfers Treatment Duration: Jan 15, 2018 Frequency: 6 times per week Estimated Hrs Per Day: .25 hour per day (15-30') Patient and/or Family Agrees t: Yes Safety Risks/Education Patient Education: Gait Training, Transfer Techniques, Correct Positioning, Safety Issues Teaching Recipient: Patient Teaching Methods: Demonstration, Discussion Response to Teaching: Reinforcement Needed Discharge Recommendations Plan Patient will perform bed mobility and transfer training, balance and endurance training, functional strengthening, stair training, gait training, and education , to improve functional mobility and independence at home. Therapy D/C Recommendations: Home w/ Family Support Time/GCodes Time In: 1535 Time Out: 1605 Total Billed Treatment Time: 30 Total Billed Treatment 1 visit EVM 20' GT 10' IAN LARKIN PT Jan 08, 2018 16:03
[2018-01-08 17:40] VITALS: BP 132/76
[2018-01-08] MEDS ORDERED: warFARin 2 MG (COUMADIN) TAB PO SCH (18:00)
[2018-01-08] MEDS: RT-ALBUTEROL/IPRATROPIUM 3 ML (DUONEB) VIAL INH SCH (20:43)
[2018-01-08] MEDS ORDERED: NS IV 1000 ML 1,000 ML ONE (20:56)
[2018-01-08] MEDS: IBUPROFEN TABLET 200 MG TAB PO PRN (21:01)
[2018-01-08] MEDS: DILTIAZEM 120 MG (CARDIZEM CD) CAP PO SCH (21:01)
[2018-01-08] MEDS: TEMAZEPAM 15 MG (RESTORIL) CAP PO SCH (21:02)
[2018-01-09] MEDS: NS 1000 ML IV BAG IV SCH ×2 (01:12→05:28)
[2018-01-09] MEDS: CATHETER FLUSH 10 ML SYR IV SCH ×3 (04:34→21:04)
[2018-01-09] MEDS: PIPERACILLIN SODIUM/TAZOBACTAM 4.5 GM in D5W 100 ML IVPB 100 ML IV SCH ×3 (04:36→21:03)
[2018-01-09] MEDS ORDERED: TROUGH ORDER-PHARMACY XX NR (06:00)
[2018-01-09 06:04] LABS: INR 2.6 (0.8-1.4); PROTHROMBIN TIME PATIENT 27.8 SEC (12.2-14.7)
[2018-01-09] MEDS: KCL 10 MEQ TAB (MICRO K) PO SCH (06:17)
[2018-01-09 06:22] VITALS: BP 135/81
[2018-01-09] MEDS: NS IV 1000 ML 1,000 ML IV SCH ×3 (06:48→22:46)
[2018-01-09] MEDS: VANCOMYCIN INJECTION 1,000 MG in NS (IVPB) 250 ML IV SCH (08:24)
[2018-01-09] MEDS: FUROSEMIDE 20 MG (LASIX) TAB PO SCH (08:24)
[2018-01-09] MEDS: LACTOBACILLUS Acidoph/Bulgar (LACTINEX/FLORANEX) TAB PO SCH (08:24)
[2018-01-09] MEDS: GABAPENTIN 100 MG (NEURONTIN) CAP PO SCH ×3 (08:24→21:04)
--- NOTE | 2018-01-09 08:28 | Cardiology Progress Note ---
Subjective Date Seen by Provider: Jan 09, 2018 Time Seen by Provider: 08:26 Subjective/Events-last exam Patient sitting up in shower. No new complaints. Denies any CP or dyspnea. States cough is better today. Review of Systems General: No Night Sweats, No Fatigue, No Malaise HEENT: No Visual Changes, No Dysphasia Pulmonary: No Dyspnea; Cough Cardiovascular: Edema; No: Chest Pain, Palpitations, Lt Headedness Gastrointestinal: No: Nausea, Vomiting, Abdominal Pain Genitourinary: No Dysuria, No Frequency Musculoskeletal: No: neck pain, back pain Neurological: Weakness; No: Numbness, Change in speech, Confusion Objective-Cardiology Exam Last Set of Vital Signs Vital Signs 01/09/18 06:22 Temp 98.7 Pulse 96 Resp 17 B/P (MAP) 135/81 (99) Pulse Ox 96 O2 Delivery Room Air Capillary Refill : I&O Intake and Output 01/09/18 00:00 Intake Total 1010 ml Output Total 1400 ml Balance -390 ml Intake Oral 1010 ml Output Urine Total 1400 ml # Bowel Movements 1 General: Alert, Oriented X3, Cooperative HEENT: Atraumatic, PERRLA Neck: Supple, No JVD, No Thyromegaly Lungs: Clear to Auscultation, Normal Air Movement Heart: Regular Rate, Normal S1, Normal S2, No Murmurs Abdomen: Normal Bowel Sounds, Soft, No Tenderness, No Hepatosplenomegaly, No Masses Extremities: No Clubbing, No Cyanosis, No Edema, Normal Pulses, No Tenderness/ Swelling Skin: No Rashes, No Breakdown, No Significant Lesion Neuro: Normal Gait, Normal Speech, Strength at 5/5 X4 Ext, Normal Tone, Sensation Intact Psych/Mental Status: Mental Status NL, Mood NL A/P-Cardiology Admission Diagnosis chest pain nonspecific etiology Pneumonia Pleural effusion Shortness of breath Assessment/Plan Chest pain nonspecific etiology, atypical in presentation, mainly pleuritic in nature, has pleural effusion and pulmonary infiltrate, receiving antibiotic, unlikely to be cardiac, continue to monitor. Pleural effusion, history of thoracentesis, still having some residual effusion. Managed by Dr. Malhotra. Pneumonia- continue antibiotic, management per Dr. Malhotra Back pain and shoulder pain, chronic, no changes from baseline. Mild nonobstructive coronary artery disease, cardiac catheterization was done in 2009. Continue to monitor. Permanent atrial fibrillation, continue to monitor, was slightly tachycardic yesterday, better today. [id number] score is 4, yearly risk of stroke without oral anticoagulation is 4 percent, has history of intolerance to amiodarone or Multaq. INR 2.6 today. Coumadin restarted, continue to monitor PT/INR. Valvular heart disease with Severe mitral regurgitation noted on echocardiogram on June 09, 2015, repeat 2-D echocardiogram revealed mild to mod MR, mild AR. continue to monitor Pulmonary hypertension, most recent 2-D echocardiogram done March 2016 revealed PA pressure 30 mmHg. Continue to monitor. Hypertension, controlled. Monitor blood pressure. Hyperlipidemia, continue on current medications and monitor Mild bilateral nonobstructive carotid artery stenosis, last carotid ultrasound was done in August 2016. Continue to monitor. Anxiety Erythromelalgia, with reflex sympathetic dystrophy. Patient has been seen by Dr. Jama Fernandes in [address]. Peripheral neuropathy, patient is status post spinal stimulator. Clinical Quality Measures DVT/VTE Risk/Contraindication: Risk Factor Score Per Nursin CK BATEMAN Jan 09, 2018 08:27
[2018-01-09] MEDS: RT-ALBUTEROL/IPRATROPIUM 3 ML (DUONEB) VIAL INH SCH ×2 (09:14→19:38)
--- NOTE | 2018-01-09 10:24 | Physical Therapy Daily Note ---
PT Daily Note-Current Subjective Patient agrees to PT. Pain Numeric Pain Scale: 0-No Pain Location: No Pain Reported Mental Status Patient Orientation: Normal For Age Attachments: IV Transfers Functional [place] Measure 0=Not Assessed/NA 4=Minimal Assistance 1=Total Assistance 5=Supervision or Setup 2=Maximal Assistance 6=Modified [place] 3=Moderate Assistance 7=Complete IndependenceIRFPAI Quality Coding Scale 6 Independent with activity with or without an assistive device 5 Patient requires set up or clean up by helper. Patient completes activity by themselves 4 Supervision or touching assist (CGA). [place] provide cues , steadying assist 3 The helper provides less than half the effort to complete the activity 2 The helper provides more than half the effort to complete the activity 1 Dependent. The helper does all the effort to complete an activity 7 Patient refused to complete or attempt activity 9 The patient did not perform the activity before the current illness or injury 88 Not attempted due to Medical conditions or safety concerns Transfers (B, C, W/C) (FIM): 7 Scootin Roll Left to Right (QC): 6 Supine to/from Sit: 7 Sit to/from Stand: 7 Sit to Lying (QC): 6 Sit to Stand (QC): 6 Chair/[id number]-Ymkqp Xfer(QC): 6 Patient reports she is up in her room independently. Weight Bearing Right Lower Extremity: Right Weight Bearing/Tolerated Left Lower Extremity: Left Weight Bearing/Tolerated Gait Training Does the Patient Walk?: Yes Gait (FIM): 6 Distance (FIM): 3=150 ft Distance: 400' Walk 50 ft with 2 Turns(QC): 6 Walk 150 ft (QC): 6 Gait Level of Assist: 6 Gait Assistive Device: FWW safe and functional gait sequence with FWW. Patient report she will not use a FWW at home or community, however, will utilize her cane. Assessment Patient tolerated treatment well and is up in recliner with needs met. PT will see x 1 more session then dismiss to nursing for continued ambulation in [facility]. PT Short Term Goals Short Term Goals Time Frame: Jan 15, 2018 Transfers (B,C,W/C) (FIM): 7 Gait (FIM): 7 Gait Distance Comment: 300' Gait Assistive Device: None PT Penitentiary Goals Penitentiary Goals Rollin PT Plan Treatment/Plan Treatment Plan: Modify Plan, see comments (continue x 1 session) Treatment Plan: Education, Functional Activity Nieves, Functional Strength, Gait , Safety, Therapeutic Exercise, Transfers Treatment Duration: Jan 15, 2018 Frequency: 6 times per week Estimated Hrs Per Day: .25 hour per day (15-30') Patient and/or Family Agrees t: Yes Time/GCodes Time In: 1000 Time Out: 1015 Total Billed Treatment Time: 15 Total Billed Treatment 1 visit FA 15 min ROGER POTTS PT Jan 09, 2018 10:24
--- NOTE | 2018-01-09 10:51 | Progress Note-Hospitalist ---
Subjective HPI/CC On Admission Date Seen by Provider: Jan 09, 2018 Time Seen by Provider: 10:00 Subjective/Events-last exam Patient doing well overall Breathing well Crackles are improved today Vancomycin and Zosyn were tolerated well Bowels are moving well INR 2.6 so Coumadin 2 MG has been restarted by Dr. Lilly Likely will be ready to go home on Saturday Objective Exam Vital Signs Vital Signs Date Time Temp Pulse Resp B/P (MAP) Pulse Ox O2 Delivery O2 Flow Rate FiO2 01/08/18 17:40 99.9 109 16 132/76 (94) 95 01/08/18 20:45 Room Air Capillary Refill : General Appearance: No Apparent Distress, WD/WN, Chronically ill Respiratory: Lungs Clear, Normal Breath Sounds Cardiovascular: No Edema, Irregularly Irregular Neurologic/Psychiatric: Alert, Oriented x3, No Motor/Sensory Deficits, Normal Mood/Affect, acute care physician II-XII Norm as Tested Skin: Normal Color, Warm/Dry Results/Procedures Lab Patient resulted labs reviewed. Assessment/Plan Assessment and Plan Assess & Plan/Chief Complaint Assessment: Resistant bilateral pneumonia with leukocytosis Coumadin treatment INR 2.6 today Chronic debility PAF Plan: Restart Coumadin Monitor closely Check labs in a.m. Continue broad spectrum antibiotics for resistant organism Likely discharge on Saturday Probiotic Clinical Quality Measures DVT/VTE Risk/Contraindication: Risk Factor Score Per Nursin DOLORES WEEKS DO Jan 09, 2018 10:51
--- OUTSIDE RECORDS SUMMARY | 2018-01-09 10:55 | XMS REPORT | Clinical Summary ---
Author Author [facility] Organization [facility] Address Unknown Phone Unavailable Care Team Providers Care Card Seller Name Role Phone ChristineTea harding DO Unavailable Unavailable João Ruiz RN ICU Unavailable Source Comments Some departments are not documenting in the electronic medical record. If you do not see the information that you expected, contact Release of Information in the Health Information Management department at [phone] for further assistance in locating additional records.[facility] Allergies Active Allergy Reactions Severity Noted Date [...]
--- NOTE | 2018-01-09 11:09 | Occupational Ther Daily Note ---
OT Current Status-Daily Note Subjective Pt alert, sitting in recliner. Pt agreed to therapy. No c/o pain. Mental Status/Objective Functional [place] Measure 0=Not Assessed/NA 4=Minimal Assistance 1=Total Assistance 5=Supervision or Setup 2=Maximal Assistance 6=Modified [place] 3=Moderate Assistance 7=Complete [place] Attachments: IV ADL-Treatment Pt was able to retrieve clothing by self. Maneuvered around area with IV pole and tubing. Pt was able to don/doff clothing by self. Assist to maneuver clothing around IV tubing only. Pt then took shower. Mod I transferring into shower. IV site was wrapped to stay dry. Pt able to stand to cleanse buttocks and mere area, sat to cleanse other areas. Hot water ran out during the middle of shower, pt required assistance to get hot water and rinse off. Then pt dried off and ambulated to recliner to dress. Pt able to complete all dressing by self. After therapy, pt sitting in recliner with call light/phone in reach. All needs met in room. Nrsg notified. Functional [place] Measure 0=Not Assessed/NA 4=Minimal Assistance 1=Total Assistance 5=Supervision or Setup 2=Maximal Assistance 6=Modified [place] 3=Moderate Assistance 7=Complete IndependenceIRFPAI Quality Coding Scale 6 Independent with activity with or without an assistive device 5 Patient requires set up or clean up by helper. Patient completes activity by themselves 4 Supervision or touching assist (CGA). [place] provide cues , steadying assist 3 The helper provides less than half the effort to complete the activity 2 The helper provides more than half the effort to complete the activity 1 Dependent. The helper does all the effort to complete an activity 7 Patient refused to complete or attempt activity 9 The patient did not perform the activity before the current illness or injury 88 Not attempted due to Medical conditions or safety concerns Bathing (FIM): 6 Upper Body (FIM): 6 Lower Body Dressing (FIM): 6 Shower Transfer(FIM): 6 OT Short Term Goals Short Term Goals Transfers (B,C,W/C) (FIM): 7 1=Demonstrate adherence to instructed precautions during ADL tasks. 2=Patient will verbalize/demonstrate understanding of assistive devices/ modifications for ADL. 3=Patient will improve strength/tolerance for activity to enable patient to perform ADL's. OT Molding Machine Setter Goals Molding Machine Setter Goals Time Frame: Jan 15, 2018 Bathing(FIM): 5 Upper Body Dressing(FIM): 6 Lower Body Dressing(FIM): 6 Toileting(FIM): 6 Toileting Hygiene (QC): 6 Transfers (B,C,W/C) (FIM): 6 Toilet/Commode Transfer(FIM): 6 Toilet/Commode Transfer (QC): 6 Shower Transfer(FIM): 5 Additional Goals: 1-Demonstrate ADL Tasks, 2-Verbalize Understanding, 3- ImproveStrength/Nieves 1=Demonstrate adherence to instructed precautions during ADL tasks. 2=Patient will verbalize/demonstrate understanding of assistive devices/ modifications for ADL. 3=Patient will improve strength/tolerance for activity to enable patient to perform ADL's. OT Education/Plan Discharge Recommendations Plan/Recommendations: Continue POC Treatment Plan/Plan of Care Patient would benefit from OT for education, treatment and training to promote independence in ADL's, mobility, safety and/or upper extremity function for ADL' s. Plan of Care: ADL Retraining, Functional Mobility, UE Funct Exercise/Act Treatment Duration: Jan 15, 2018 Frequency: 5 times per week Estimated Hrs Per Day: .5 hour per day Agreement: Yes Rehab Potential: Good Time/GCodes Start Time: 08:00 Stop Time: 08:45 Total Time Billed (hr/min): 45 Billed Treatment Time 1 visit-ADL 3 (45 min) ANITA SANDOVAL Jan 09, 2018 11:09
--- NOTE | 2018-01-09 16:11 | Cardiology Progress Note ---
Subjective Date Seen by Provider: Jan 09, 2018 Time Seen by Provider: 16:10 Subjective/Events-last exam Patient sitting in a chair, having some cough, having worsening edema and discomfort with her neuropathy Review of Systems General: No Chills, No Night Sweats, No Fatigue, No Malaise, No Appetite, No Other HEENT: No Head Aches, No Visual Changes, No Eye Pain, No Ear Pain, No Dysphasia , No Sinus Congestion, No Post Nasal Drip, No Sore Throat, No Other Pulmonary: Dyspnea, Cough, Pleuritic Chest Pain; No Other Cardiovascular: Chest Pain; No: Palpitations, Orthopnea, Paroxysmal Noc. Dyspnea, Edema, Lt Headedness, Other Objective-Cardiology Exam Last Set of Vital Signs Vital Signs 01/09/18 01/09/18 06:22 09:15 Temp 98.7 Pulse 96 Resp 17 B/P (MAP) 135/81 (99) Pulse Ox 96 O2 Delivery Room Air Capillary Refill : I&O Intake and Output 01/09/18 00:00 Intake Total 1010 ml Output Total 1400 ml Balance -390 ml Intake Oral 1010 ml Output Urine Total 1400 ml # Bowel Movements 1 General: Alert, Oriented X3, Cooperative HEENT: Atraumatic, PERRLA Neck: Supple, No JVD, No Thyromegaly Lungs: Clear to Auscultation, Normal Air Movement Heart: Regular Rate, Normal S1, Normal S2, No Murmurs Abdomen: Normal Bowel Sounds, Soft, No Tenderness, No Hepatosplenomegaly, No Masses Extremities: No Clubbing, No Cyanosis, No Edema, Normal Pulses, No Tenderness/ Swelling Skin: No Rashes, No Breakdown, No Significant Lesion Neuro: Normal Gait, Normal Speech, Strength at 5/5 X4 Ext, Normal Tone, Sensation Intact Psych/Mental Status: Mental Status NL, Mood NL A/P-Cardiology Admission Diagnosis chest pain nonspecific etiology Pneumonia Pleural effusion Shortness of breath Assessment/Plan Chest pain nonspecific etiology, atypical in presentation, mainly pleuritic in nature, has pleural effusion and pulmonary infiltrate, receiving antibiotic, unlikely to be cardiac, continue to monitor. Peripheral edema, I will give one dose of IV Lasix in addition to her current medication monitor, evaluate metabolic profile and CBC in a.m. Pleural effusion, history of thoracentesis, still having some residual effusion. Managed by Dr. Marya. Pneumonia- continue antibiotic, management per Dr. Malhotra Back pain and shoulder pain, chronic, no changes from baseline. Mild nonobstructive coronary artery disease, cardiac catheterization was done in 2009. Continue to monitor. Permanent atrial fibrillation, continue to monitor, was slightly tachycardic yesterday, better today. [id number] score is 4, yearly risk of stroke without oral anticoagulation is 4 percent, has history of intolerance to amiodarone or Multaq. INR 2.6 today. Coumadin restarted, continue to monitor PT/INR. Valvular heart disease with Severe mitral regurgitation noted on echocardiogram on June 09, 2015, repeat 2-D echocardiogram revealed mild to mod MR, mild AR. continue to monitor Pulmonary hypertension, most recent 2-D echocardiogram done March 2016 revealed PA pressure 30 mmHg. Continue to monitor. Hypertension, controlled. Monitor blood pressure. Hyperlipidemia, continue on current medications and monitor Mild bilateral nonobstructive carotid artery stenosis, last carotid ultrasound was done in August 2016. Continue to monitor. Anxiety Erythromelalgia, with reflex sympathetic dystrophy. Patient has been seen by Dr. Jama Fernandes in [place]. Peripheral neuropathy, patient is status post spinal stimulator. Clinical Quality Measures DVT/VTE Risk/Contraindication: Risk Factor Score Per Nursin VIJAY SIDDIQUI MD Jan 09, 2018 16:11
[2018-01-09] MEDS ORDERED: FUROSEMIDE 40 MG/4 ML INJ (LASIX) IVP NR (16:15)
[2018-01-09] MEDS: warFARin 2 MG (COUMADIN) TAB PO SCH (17:32)
[2018-01-09 18:00] VITALS: BP 110/63
[2018-01-09] MEDS: TEMAZEPAM 15 MG (RESTORIL) CAP PO SCH (21:04)
[2018-01-09] MEDS: DILTIAZEM 120 MG (CARDIZEM CD) CAP PO SCH (21:04)
[2018-01-09] MEDS: IBUPROFEN TABLET 200 MG TAB PO PRN (21:07)
[2018-01-09] MEDS: ESTRADIOL VAGINAL CREAM 42.5 GM (ESTRACE) VG SCH (21:09)
[2018-01-10] MEDS: CATHETER FLUSH 10 ML SYR IV SCH ×3 (04:46→20:39)
[2018-01-10] MEDS: PIPERACILLIN SODIUM/TAZOBACTAM 4.5 GM in D5W 100 ML IVPB 100 ML IV SCH ×3 (04:50→20:38)
[2018-01-10 05:52] LABS: BASOPHILS % (AUTO) 0 % (0-10); EOSINOPHILS # (AUTO) 0.4 10^3/uL (0.0-0.3); EOSINOPHILS % (AUTO) 5 % (0-10); HEMATOCRIT 25 % (35-52); LYMPHOCYTES # (AUTO) 1.3 X 10^3 (1.0-4.0); LYMPHOCYTES % (AUTO) 14 % (12-44); MEAN CORPUSCULAR HEMOGLOBIN 30 PG (25-34); MEAN CORPUSCULAR HGB CONC 33 G/DL (32-36); MEAN CORPUSCULAR VOLUME 92 FL (80-99); MEAN PLATELET VOLUME 8.5 FL (7.4-10.4); MONOCYTES # (AUTO) 0.5 X 10^3 (0.0-1.0); MONOCYTES % (AUTO) 6 % (0-12); NEUTROPHILS # (AUTO) 7.1 X 10^3 (1.8-7.8); NEUTROPHILS % (AUTO) 76 % (42-75); PLATELET COUNT 352 10^3/uL (130-400); RED BLOOD COUNT 2.67 10^6/uL (4.35-5.85); RED CELL DISTRIBUTION WIDTH 14.8 % (10.0-14.5); WHITE BLOOD COUNT 9.4 10^3/uL (4.3-11.0)
[2018-01-10] MEDS: KCL 10 MEQ TAB (MICRO K) PO SCH ×3 (06:15→20:41)
[2018-01-10] MEDS: NS IV 1000 ML 1,000 ML IV SCH ×3 (06:17→20:39)
[2018-01-10 06:19] LABS: ALBUMIN 2.3 GM/DL (3.2-4.5); BILIRUBIN,TOTAL 0.3 MG/DL (0.1-1.0); CALCIUM 8.5 MG/DL (8.5-10.1); CREATININE SERUM 1.21 MG/DL (0.60-1.30); MAGNESIUM 1.6 MG/DL (1.8-2.4); POTASSIUM 3.5 MMOL/L (3.6-5.0); TOTAL PROTEIN 4.9 GM/DL (6.4-8.2)
[2018-01-10 06:26] VITALS: BP 115/59
[2018-01-10] MEDS: RT-ALBUTEROL/IPRATROPIUM 3 ML (DUONEB) VIAL INH SCH ×2 (08:38→18:51)
--- NOTE | 2018-01-10 08:54 | Cardiology Progress Note ---
Subjective Date Seen by Provider: Jan 10, 2018 Time Seen by Provider: 08:53 Subjective/Events-last exam Patient is feeling better, reporting improvement in pain, breathing better Review of Systems General: No Chills, No Night Sweats, No Fatigue, No Malaise, No Appetite, No Other HEENT: No Head Aches, No Visual Changes, No Eye Pain, No Ear Pain, No Dysphasia , No Sinus Congestion, No Post Nasal Drip, No Sore Throat, No Other Pulmonary: Dyspnea; No Cough, No Pleuritic Chest Pain, No Other Cardiovascular: Edema; No: Chest Pain, Palpitations, Orthopnea, Paroxysmal Noc. Dyspnea, Lt Headedness, Other Objective-Cardiology Exam Last Set of Vital Signs Vital Signs 01/10/18 01/10/18 06:26 08:41 Temp 96.5 Pulse 104 Resp 19 B/P (MAP) 115/59 (77) Pulse Ox 97 O2 Delivery Room Air Capillary Refill : I&O Intake and Output 01/10/18 00:00 Intake Total 3540 ml Output Total 1102 ml Balance 2438 ml Intake Oral 2540 ml IV Total 1000 ml Output Urine Total 1100 ml Stool Total 2 ml # Voids 5 General: Alert, Oriented X3, Cooperative HEENT: Atraumatic, PERRLA Neck: Supple, No JVD, No Thyromegaly Lungs: Clear to Auscultation, Normal Air Movement Heart: Normal S1, Normal S2, No Murmurs, Other (Irregular) Abdomen: Normal Bowel Sounds, Soft, No Tenderness, No Hepatosplenomegaly, No Masses Extremities: No Clubbing, No Cyanosis, Normal Pulses, No Tenderness/Swelling, Other (Mild pedal edema) Skin: No Rashes, No Breakdown, No Significant Lesion Neuro: Normal Gait, Normal Speech, Strength at 5/5 X4 Ext, Normal Tone, Sensation Intact Psych/Mental Status: Mental Status NL, Mood NL Results Lab Laboratory Tests 01/10/18 05:44 A/P-Cardiology Admission Diagnosis chest pain nonspecific etiology Pneumonia Pleural effusion Shortness of breath Assessment/Plan Chest pain nonspecific etiology, atypical in presentation, mainly pleuritic in nature, better at this time, reporting improvement Peripheral edema, slightly better today, I will give additional dose of Lasix and monitor. Hypokalemia, hypomagnesemia, secondary to diuretics, replace and monitor Pleural effusion, history of thoracentesis, still having some residual effusion. Managed by Dr. Malhotra. Pneumonia- continue antibiotic, management per Dr. Malhotra Back pain and shoulder pain, chronic, no changes from baseline. Mild nonobstructive coronary artery disease, cardiac catheterization was done in 2009. Continue to monitor. Permanent atrial fibrillation, continue to monitor, was slightly tachycardic yesterday, better today. [id number] score is 4, yearly risk of stroke without oral anticoagulation is 4 percent, has history of intolerance to amiodarone or Multaq. INR 2.6 today. Coumadin restarted, continue to monitor PT/INR. Valvular heart disease with Severe mitral regurgitation noted on echocardiogram on June 09, 2015, repeat 2-D echocardiogram revealed mild to mod MR, mild AR. continue to monitor Pulmonary hypertension, most recent 2-D echocardiogram done March 2016 revealed PA pressure 30 mmHg. Continue to monitor. Hypertension, controlled. Monitor blood pressure. Hyperlipidemia, continue on current medications and monitor Mild bilateral nonobstructive carotid artery stenosis, last carotid ultrasound was done in August 2016. Continue to monitor. Anxiety Erythromelalgia, with reflex sympathetic dystrophy. Patient has been seen by Dr. Jama Fernandes in [place]. Peripheral neuropathy, patient is status post spinal stimulator. Clinical Quality Measures DVT/VTE Risk/Contraindication: Risk Factor Score Per Nursin VIJAY SIDDIQUI MD Jan 10, 2018 08:54
[2018-01-10] MEDS ORDERED: KCL 20 MEQ TAB (K-DUR) PO NR (09:00)
[2018-01-10] MEDS ORDERED: FUROSEMIDE 40 MG/4 ML INJ (LASIX) IVP NR (09:00)
[2018-01-10] MEDS: LACTOBACILLUS Acidoph/Bulgar (LACTINEX/FLORANEX) TAB PO SCH ×3 (09:03→16:05)
[2018-01-10] MEDS: VANCOMYCIN INJECTION 1,000 MG in NS (IVPB) 250 ML IV SCH (09:03)
[2018-01-10] MEDS: FUROSEMIDE 20 MG (LASIX) TAB PO SCH (09:03)
[2018-01-10] MEDS: GABAPENTIN 100 MG (NEURONTIN) CAP PO SCH ×3 (09:04→20:38)
[2018-01-10] MEDS: IBUPROFEN TABLET 200 MG TAB PO PRN ×3 (09:04→18:33)
--- NOTE | 2018-01-10 10:37 | Progress Note-Hospitalist ---
Subjective HPI/CC On Admission Date Seen by Provider: Jan 10, 2018 Time Seen by Provider: 10:00 Subjective/Events-last exam Patient doing well overall Neuropathy in her feet is a chronic issue Labs reviewed hemoglobin stable at 8.0 and potassium is low so we'll increase supplement White count is now normal Vancomycin and Zosyn maintain Loose stools due to the antibiotics Review of Systems Gastrointestinal: Diarrhea Objective Exam Vital Signs Vital Signs Date Time Temp Pulse Resp B/P (MAP) Pulse Ox O2 Delivery O2 Flow Rate FiO2 01/08/18 17:40 99.9 109 16 132/76 (94) 95 01/08/18 20:45 Room Air Capillary Refill : General Appearance: No Apparent Distress, WD/WN, Chronically ill Respiratory: Lungs Clear, Normal Breath Sounds, Crackles (subtle in bases) Cardiovascular: Regular Rate, Rhythm, No Edema Neurologic/Psychiatric: Alert, Oriented x3, No Motor/Sensory Deficits, Depressed Affect Results/Procedures Lab Laboratory Tests 01/10/18 05:44 Patient resulted labs reviewed. Assessment/Plan Assessment and Plan Assess & Plan/Chief Complaint Assessment: Resistant bilateral pneumonia with leukocytosis now leukocytosis is resolved Coumadin treatment INR 2.6 yesterday Chronic debility PAF Loose stools Neuropathy Plan: Restarted Coumadin 2mg daily Monitor closely Continue broad spectrum antibiotics for resistant organism Likely discharge on Saturday Probiotic added along with Imodium Clinical Quality Measures DVT/VTE Risk/Contraindication: Risk Factor Score Per Nursin DOLORES WEEKS DO Jan 10, 2018 10:37
--- NOTE | 2018-01-10 11:11 | Physical Therapy Daily Note ---
PT Daily Note-Current Subjective Patient agrees to PT. No c/o. Pain Numeric Pain Scale: 0-No Pain Location: No Pain Reported Mental Status Patient Orientation: Normal For Age Attachments: IV Transfers Functional [place] Measure 0=Not Assessed/NA 4=Minimal Assistance 1=Total Assistance 5=Supervision or Setup 2=Maximal Assistance 6=Modified [place] 3=Moderate Assistance 7=Complete IndependenceIRFPAI Quality Coding Scale 6 Independent with activity with or without an assistive device 5 Patient requires set up or clean up by helper. Patient completes activity by themselves 4 Supervision or touching assist (CGA). [place] provide cues , steadying assist 3 The helper provides less than half the effort to complete the activity 2 The helper provides more than half the effort to complete the activity 1 Dependent. The helper does all the effort to complete an activity 7 Patient refused to complete or attempt activity 9 The patient did not perform the activity before the current illness or injury 88 Not attempted due to Medical conditions or safety concerns Transfers (B, C, W/C) (FIM): 7 Scootin Roll Left to Right (QC): 6 Supine to/from Sit: 7 Sit to/from Stand: 7 Sit to Lying (QC): 6 Sit to Stand (QC): 6 Chair/[id number]-Gmpzd Xfer(QC): 6 Bed to/from Chair: 7 Weight Bearing Right Lower Extremity: Right Weight Bearing/Tolerated Left Lower Extremity: Left Weight Bearing/Tolerated Gait Training Gait (FIM): 6 Distance (FIM): 3=150 ft Distance: 500' Walk 50 ft with 2 Turns(QC): 6 Walk 150 ft (QC): 6 Gait Level of Assist: 6 Gait Assistive Device: FWW safe and functional with FWW Exercises Seated Therapy Exercises: Ankle pumps, Long arc quads Seated Reps: 25 Assessment Patient is currently at independent PLOF with all gross motor skills. PT encouraged patient to call for nursing staff for ambulation to increase functional mobility. PT Short Term Goals Short Term Goals Time Frame: Jan 15, 2018 Transfers (B,C,W/C) (FIM): 7 Gait (FIM): 7 Gait Distance Comment: 300' Gait Assistive Device: None PT Senior Care Goals Senior Care Goals Rollin PT Plan Treatment/Plan Treatment Plan: Continue Plan of Care Treatment Plan: Education, Functional Activity Nieves, Functional Strength, Gait , Safety, Therapeutic Exercise, Transfers Treatment Duration: Jan 15, 2018 Frequency: 6 times per week Estimated Hrs Per Day: .25 hour per day (15-30') Patient and/or Family Agrees t: Yes Time/GCodes Time In: 1047 Time Out: 1102 Total Billed Treatment Time: 15 Total Billed Treatment 1 visit FA 15 min ROGER POTTS PT Jan 10, 2018 11:11
[2018-01-10] MEDS ORDERED: LOPERAMIDE 2 MG (IMODIUM) CAP PO PRN (11:45)
--- NOTE | 2018-01-10 11:48 | Therapy Team Discharge Summary ---
Therapy Discharge Summary Discharge Recommendations Date of Discharge Therapy D/C Recommendations: Home w/ Family Support Physical Therapy Patient is currently at independent PLOF with all gross motor skills and has attained all functional goals. Patient instructed to ambulate PRN with nursing in [facility]. PT consulted with Dr. Nye and SWB coordinator on dismissing patient from therapy services. Occupational Therapy Decreased Activ Tolerance, Impaired I ADL's PT Fci Goals Fci Goals Rollin OT Salon Customer Experience Specialist Goals Salon Customer Experience Specialist Goals Time Frame: Jan 15, 2018 Bathing(FIM): 5 Upper Body Dressing(FIM): 6 Lower Body Dressing(FIM): 6 Toileting(FIM): 6 Toileting Hygiene (QC): 6 Transfers (B,C,W/C) (FIM): 6 Toilet/Commode Transfer(FIM): 6 Toilet/Commode Transfer (QC): 6 Shower Transfer(FIM): 5 Additional Goals: 1-Demonstrate ADL Tasks, 2-Verbalize Understanding, 3- ImproveStrength/Nieves 1=Demonstrate adherence to instructed precautions during ADL tasks. 2=Patient will verbalize/demonstrate understanding of assistive devices/ modifications for ADL. 3=Patient will improve strength/tolerance for activity to enable patient to perform ADL's. ROGER POTTS PT Jan 10, 2018 11:48
--- NOTE | 2018-01-10 11:50 | Occupational Ther Daily Note ---
OT Current Status-Daily Note Subjective Pt alert, sitting in recliner. Just finished up with PT. Pt agreed to therapy. No c/o pain. Mental Status/Objective Patient Orientation: Person, Place, Time, Situation Functional [place] Measure 0=Not Assessed/NA 4=Minimal Assistance 1=Total Assistance 5=Supervision or Setup 2=Maximal Assistance 6=Modified [place] 3=Moderate Assistance 7=Complete [place] Attachments: IV ADL-Treatment Pt stated that she had toileted and completed a sponge bath mod I prior to seeing PT. RAMOS discussed energy conservation with pt and pt was able to verbalize techniques she uses at home. Home safety education with pt and pt was able to describe strategies that she uses at home and states that she has family a phone call away. Pt demonstrates ability to maneuver around room with IV pole and retrieve objects easily without LOB or SOA. After therapy, pt sitting in recliner with call light/phone. All needs met in room. Functional [place] Measure 0=Not Assessed/NA 4=Minimal Assistance 1=Total Assistance 5=Supervision or Setup 2=Maximal Assistance 6=Modified [place] 3=Moderate Assistance 7=Complete IndependenceIRFPAI Quality Coding Scale 6 Independent with activity with or without an assistive device 5 Patient requires set up or clean up by helper. Patient completes activity by themselves 4 Supervision or touching assist (CGA). [place] provide cues , steadying assist 3 The helper provides less than half the effort to complete the activity 2 The helper provides more than half the effort to complete the activity 1 Dependent. The helper does all the effort to complete an activity 7 Patient refused to complete or attempt activity 9 The patient did not perform the activity before the current illness or injury 88 Not attempted due to Medical conditions or safety concerns Education OT Patient Education: Energy conservation, Safety issues Teaching Recipient: Patient Teaching Methods: Demonstration, Discussion Response to Teaching: Verbalize Understanding OT Short Term Goals Short Term Goals Transfers (B,C,W/C) (FIM): 7 1=Demonstrate adherence to instructed precautions during ADL tasks. 2=Patient will verbalize/demonstrate understanding of assistive devices/ modifications for ADL. 3=Patient will improve strength/tolerance for activity to enable patient to perform ADL's. OT Miniature Set Constructor Goals Prison Goals Time Frame: Jan 15, 2018 Bathing(FIM): 5 Upper Body Dressing(FIM): 6 Lower Body Dressing(FIM): 6 Toileting(FIM): 6 Toileting Hygiene (QC): 6 Transfers (B,C,W/C) (FIM): 6 Toilet/Commode Transfer(FIM): 6 Toilet/Commode Transfer (QC): 6 Shower Transfer(FIM): 5 Additional Goals: 1-Demonstrate ADL Tasks, 2-Verbalize Understanding, 3- ImproveStrength/Nieves 1=Demonstrate adherence to instructed precautions during ADL tasks. 2=Patient will verbalize/demonstrate understanding of assistive devices/ modifications for ADL. 3=Patient will improve strength/tolerance for activity to enable patient to perform ADL's. OT Education/Plan Discharge Recommendations Plan/Recommendations: Continue POC Treatment Plan/Plan of Care Patient would benefit from OT for education, treatment and training to promote independence in ADL's, mobility, safety and/or upper extremity function for ADL' s. Plan of Care: ADL Retraining, Functional Mobility, UE Funct Exercise/Act Treatment Duration: Jan 15, 2018 Frequency: 5 times per week Estimated Hrs Per Day: .5 hour per day Agreement: Yes Rehab Potential: Good Time/GCodes Start Time: 11:25 Stop Time: 11:45 Total Time Billed (hr/min): 20 Billed Treatment Time 1 visit-FA 1 (20 min) ANITA SANDOVAL Jan 10, 2018 11:50
[2018-01-10] MEDS: MAGNESIUM 1 GM/100 ML IVPB 100 ML IV SCH ×2 (11:53→13:33)
[2018-01-10 17:53] VITALS: BP 113/58
[2018-01-10] MEDS ORDERED: warFARin 2 MG (COUMADIN) TAB PO SCH (18:00)
[2018-01-10] MEDS: warFARin 2 MG (COUMADIN) TAB PO SCH (18:32)
[2018-01-10] MEDS: TEMAZEPAM 15 MG (RESTORIL) CAP PO SCH (20:38)
[2018-01-10] MEDS: DILTIAZEM 120 MG (CARDIZEM CD) CAP PO SCH (20:38)
[2018-01-10] MEDS: ESTRADIOL VAGINAL CREAM 42.5 GM (ESTRACE) VG SCH (20:39)
[2018-01-11] MEDS: NS IV 1000 ML 1,000 ML IV SCH ×2 (03:23→15:17)
[2018-01-11] MEDS: CATHETER FLUSH 10 ML SYR IV SCH ×4 (03:23→20:22)
[2018-01-11] MEDS: PIPERACILLIN SODIUM/TAZOBACTAM 4.5 GM in D5W 100 ML IVPB 100 ML IV SCH ×3 (04:12→20:35)
[2018-01-11 05:03] VITALS: BP 98/64
[2018-01-11 06:07] LABS: HEMOGLOBIN 7.5 G/DL (11.5-16.0); MEAN PLATELET VOLUME 8.6 FL (7.4-10.4); RED BLOOD COUNT 2.52 10^6/uL (4.35-5.85); RED CELL DISTRIBUTION WIDTH 14.9 % (10.0-14.5); WHITE BLOOD COUNT 12.1 10^3/uL (4.3-11.0)
[2018-01-11] MEDS: LACTOBACILLUS Acidoph/Bulgar (LACTINEX/FLORANEX) TAB PO SCH ×4 (06:14→15:17)
[2018-01-11 06:23] LABS: INR 3.9 (0.8-1.4)
[2018-01-11 06:40] LABS: CALCIUM 8.6 MG/DL (8.5-10.1); CREATININE SERUM 1.24 MG/DL (0.60-1.30); POTASSIUM 3.9 MMOL/L (3.6-5.0)
[2018-01-11] MEDS: VANCOMYCIN INJECTION 1,000 MG in NS (IVPB) 250 ML IV SCH (08:07)
[2018-01-11] MEDS: KCL 10 MEQ TAB (MICRO K) PO SCH ×3 (09:45→20:36)
[2018-01-11] MEDS: FUROSEMIDE 20 MG (LASIX) TAB PO SCH (09:45)
[2018-01-11] MEDS: GABAPENTIN 100 MG (NEURONTIN) CAP PO SCH ×3 (09:45→20:36)
[2018-01-11] MEDS: RT-ALBUTEROL/IPRATROPIUM 3 ML (DUONEB) VIAL INH SCH ×2 (11:02→18:55)
[2018-01-11] MEDS: warFARin 2 MG (COUMADIN) TAB PO SCH (14:59)
[2018-01-11 18:40] VITALS: BP 136/65
[2018-01-11] MEDS ORDERED: FUROSEMIDE 40 MG/4 ML INJ (LASIX) IVP ONE (19:15)
[2018-01-11] MEDS ORDERED: FUROSEMIDE 40 MG/4 ML INJ (LASIX) ONE (19:51)
[2018-01-11] MEDS: DILTIAZEM 120 MG (CARDIZEM CD) CAP PO SCH (20:36)
[2018-01-11] MEDS: ESTRADIOL VAGINAL CREAM 42.5 GM (ESTRACE) VG SCH (20:36)
[2018-01-11] MEDS: TEMAZEPAM 15 MG (RESTORIL) CAP PO SCH (20:36)
[2018-01-12] MEDS: CATHETER FLUSH 10 ML SYR IV SCH ×6 (03:32→20:34)
[2018-01-12] MEDS: LACTOBACILLUS Acidoph/Bulgar (LACTINEX/FLORANEX) TAB PO SCH ×4 (05:02→16:04)
[2018-01-12] MEDS: PIPERACILLIN SODIUM/TAZOBACTAM 4.5 GM in D5W 100 ML IVPB 100 ML IV SCH ×3 (05:03→20:34)
[2018-01-12 06:00] VITALS: BP 114/72
[2018-01-12] MEDS ORDERED: TROUGH ORDER-PHARMACY XX NR (06:00)
[2018-01-12 06:33] LABS: INR 3.9 (0.8-1.4); PROTHROMBIN TIME PATIENT 37.9 SEC (12.2-14.7)
[2018-01-12] MEDS: VANCOMYCIN INJECTION 1,000 MG in NS (IVPB) 250 ML IV SCH (06:50)
[2018-01-12] MEDS: KCL 10 MEQ TAB (MICRO K) PO SCH ×3 (08:09→20:34)
[2018-01-12] MEDS: GABAPENTIN 100 MG (NEURONTIN) CAP PO SCH ×3 (08:09→20:34)
[2018-01-12] MEDS: FUROSEMIDE 20 MG (LASIX) TAB PO SCH (08:09)
[2018-01-12] MEDS: RT-ALBUTEROL/IPRATROPIUM 3 ML (DUONEB) VIAL INH SCH ×2 (10:28→19:14)
[2018-01-12 18:17] VITALS: BP 128/70
[2018-01-12] MEDS: TEMAZEPAM 15 MG (RESTORIL) CAP PO SCH (20:34)
[2018-01-12] MEDS: DILTIAZEM 120 MG (CARDIZEM CD) CAP PO SCH (20:34)
[2018-01-12] MEDS: ESTRADIOL VAGINAL CREAM 42.5 GM (ESTRACE) VG SCH (20:44)
[2018-01-13] MEDS: LACTOBACILLUS Acidoph/Bulgar (LACTINEX/FLORANEX) TAB PO SCH ×3 (05:09→17:18)
[2018-01-13] MEDS: PIPERACILLIN SODIUM/TAZOBACTAM 4.5 GM in D5W 100 ML IVPB 100 ML IV SCH ×3 (05:09→22:07)
[2018-01-13] MEDS: CATHETER FLUSH 10 ML SYR IV SCH ×6 (05:09→22:08)
[2018-01-13 05:49] VITALS: BP 128/81
[2018-01-13] MEDS ORDERED: TROUGH ORDER-PHARMACY XX NR (06:00)
[2018-01-13 06:15] LABS: INR 2.8 (0.8-1.4); PROTHROMBIN TIME PATIENT 29.5 SEC (12.2-14.7)
--- NOTE | 2018-01-13 06:41 | Pulmonary Progress Note ---
Subjective Time Seen by Provider: 06:45 Subjective/Events-last exam pt appears to be improving Exam Exam Vital Signs Date Time Temp Pulse Resp B/P (MAP) Pulse Ox O2 Delivery O2 Flow Rate FiO2 01/13/18 05:49 97.8 88 17 128/81 (97) 96 Room Air 01/12/18 20:00 Room Air 01/12/18 19:14 97 Room Air 01/12/18 18:17 98.5 107 16 128/70 (89) 99 Room Air 01/12/18 10:28 98 Room Air 01/12/18 08:38 Room Air I & O 01/13/18 07:00 Intake Total 1860 ml Output Total 1800 ml Balance 60 ml General Appearance: No Apparent Distress, WD/WN, Chronically ill Respiratory: Lungs Clear, Normal Breath Sounds, Crackles (subtle in bases) Cardiovascular: Regular Rate, Rhythm, No Edema Neurologic/Psychiatric: Alert, Oriented x3, No Motor/Sensory Deficits, Depressed Affect Skin: Normal Color, Warm/Dry Assessment/Plan Assessment/Plan pneumonia - improving -Currently on zosyn -repeat PA/Lat CXR today Paroxysmal Afib -Cardiology following -Coumadin is on hold secondary to coagulopathy possible discharge today. CXR is pending. 232 SHITAL HUDSON DO Jan 13, 2018 06:41
[2018-01-13] MEDS: RT-ALBUTEROL/IPRATROPIUM 3 ML (DUONEB) VIAL INH SCH ×2 (08:45→19:12)
--- NOTE | 2018-01-13 08:47 | Cardiology Progress Note ---
Subjective Date Seen by Provider: Jan 13, 2018 Time Seen by Provider: 08:38 Subjective/Events-last exam Patient sitting up in chair, no new complaints. Asking to go home. Review of Systems General: No Night Sweats, No Fatigue, No Malaise HEENT: No Visual Changes, No Dysphasia Pulmonary: No Dyspnea, No Cough Cardiovascular: No: Chest Pain, Palpitations Gastrointestinal: No: Nausea, Vomiting, Abdominal Pain Genitourinary: No Dysuria, No Frequency Musculoskeletal: No: neck pain, back pain Neurological: Weakness; No: Numbness, Change in speech, Confusion Objective-Cardiology Exam Last Set of Vital Signs Vital Signs 01/10/18 01/13/18 13:00 05:49 Temp 97.8 Pulse 88 Resp 17 B/P (MAP) 128/81 (97) Pulse Ox 96 O2 Delivery Room Air FiO2 21 Capillary Refill : I&O Intake and Output 01/13/18 00:00 Intake Total 1760 ml Output Total 2700 ml Balance -940 ml Intake Oral 1560 ml IV Total 200 ml Output Urine Total 2700 ml # Bowel Movements 5 Daily Weight Change No No General: Alert, Oriented X3, Cooperative HEENT: Atraumatic, PERRLA Neck: Supple, No JVD, No Thyromegaly Lungs: Clear to Auscultation, Normal Air Movement Heart: Normal S1, Normal S2, No Murmurs, Other (Irregular) Abdomen: Normal Bowel Sounds, Soft, No Tenderness, No Hepatosplenomegaly, No Masses Extremities: No Clubbing, No Cyanosis, Normal Pulses, No Tenderness/Swelling, Other (Mild pedal edema) Skin: No Rashes, No Breakdown, No Significant Lesion Neuro: Normal Gait, Normal Speech, Strength at 5/5 X4 Ext, Normal Tone, Sensation Intact Psych/Mental Status: Mental Status NL, Mood NL A/P-Cardiology Admission Diagnosis chest pain nonspecific etiology Pneumonia Pleural effusion Shortness of breath Assessment/Plan Chest pain nonspecific etiology, atypical in presentation, mainly pleuritic in nature, better at this time, reporting improvement Peripheral edema, improving. Continue to monitor. Hypokalemia, hypomagnesemia, secondary to diuretics, replace and monitor Pleural effusion, history of thoracentesis, still having some residual effusion. Managed by Dr. Malhotra. Pneumonia- continue antibiotic, management per Dr. Malhotra Back pain and shoulder pain, chronic, no changes from baseline. Mild nonobstructive coronary artery disease, cardiac catheterization was done in 2009. Continue to monitor. Permanent atrial fibrillation, continue to monitor, was slightly tachycardic yesterday, better today. [id number] score is 4, yearly risk of stroke without oral anticoagulation is 4 percent, has history of intolerance to amiodarone or Multaq. Coumadin on hold again for supratherapeutic INR. Discussed possibility of changing from Coumadin to NOAC. Valvular heart disease with Severe mitral regurgitation noted on echocardiogram on June 09, 2015, repeat 2-D echocardiogram revealed mild to mod MR, mild AR. continue to monitor Pulmonary hypertension, most recent 2-D echocardiogram done March 2016 revealed PA pressure 30 mmHg. Continue to monitor. Hypertension, controlled. Monitor blood pressure. Hyperlipidemia, continue on current medications and monitor Mild bilateral nonobstructive carotid artery stenosis, last carotid ultrasound was done in August 2016. Continue to monitor. Anxiety Erythromelalgia, with reflex sympathetic dystrophy. Patient has been seen by Dr. Jama Fernandes in [place]. Peripheral neuropathy, patient is status post spinal stimulator. Clinical Quality Measures DVT/VTE Risk/Contraindication: Risk Factor Score Per Nursin CK BATEMAN Jan 13, 2018 08:47
[2018-01-13] MEDS: KCL 10 MEQ TAB (MICRO K) PO SCH ×3 (09:02→22:07)
[2018-01-13] MEDS: FUROSEMIDE 20 MG (LASIX) TAB PO SCH (09:02)
[2018-01-13] MEDS: GABAPENTIN 100 MG (NEURONTIN) CAP PO SCH ×3 (09:02→22:07)
--- NOTE | 2018-01-13 09:19 | Diagnostic Imaging Report ---
INDICATION: Pneumonia. COMPARISON: 01/08/2018. FINDINGS: The bilateral pleural effusions, greater left, show a mild increase in volume on the right. The bilateral apical infiltrates also appear slightly more dense on the left. The upper limits heart size is stable. No gross over-dilatation of the vascularity. IMPRESSION: Slight progression of pleural fluid on the right and the infiltrate at the left upper lobe. The remaining findings are stable. No pneumothorax. Dictated by: Dictated on workstation # [id number]
--- NOTE | 2018-01-13 10:12 | Cardiology Progress Note ---
Subjective Date Seen by Provider: Jan 13, 2018 Time Seen by Provider: 10:10 Subjective/Events-last exam Patient is still having some pain on deep inspiration, no palpitation. Review of Systems General: No Chills, No Night Sweats, No Fatigue, No Malaise, No Appetite, No Other HEENT: No Head Aches, No Visual Changes, No Eye Pain, No Ear Pain, No Dysphasia , No Sinus Congestion, No Post Nasal Drip, No Sore Throat, No Other Pulmonary: No Dyspnea, No Cough; Pleuritic Chest Pain; No Other Cardiovascular: Chest Pain; No: Palpitations, Orthopnea, Paroxysmal Noc. Dyspnea, Edema, Lt Headedness, Other Objective-Cardiology Exam Last Set of Vital Signs Vital Signs 01/10/18 01/13/18 01/13/18 13:00 05:49 08:48 Temp 97.8 Pulse 88 Resp 17 B/P (MAP) 128/81 (97) Pulse Ox 98 O2 Delivery Room Air FiO2 21 Capillary Refill : I&O Intake and Output 01/13/18 00:00 Intake Total 1760 ml Output Total 2700 ml Balance -940 ml Intake Oral 1560 ml IV Total 200 ml Output Urine Total 2700 ml # Bowel Movements 5 Daily Weight Change No No General: Alert, Oriented X3, Cooperative HEENT: Atraumatic, PERRLA Neck: Supple, No JVD, No Thyromegaly Lungs: Clear to Auscultation, Normal Air Movement Heart: Normal S1, Normal S2, No Murmurs, Other (Irregular) Abdomen: Normal Bowel Sounds, Soft, No Tenderness, No Hepatosplenomegaly, No Masses Extremities: No Clubbing, No Cyanosis, Normal Pulses, No Tenderness/Swelling, Other (Mild pedal edema) Skin: No Rashes, No Breakdown, No Significant Lesion Neuro: Normal Gait, Normal Speech, Strength at 5/5 X4 Ext, Normal Tone, Sensation Intact Psych/Mental Status: Mental Status NL, Mood NL Results Lab Laboratory Tests Test 01/13/18 05:45 Range/Units Prothrombin Time 29.5 H 12.2-14.7 SEC INR Comment 2.8 H 0.8-1.4 Vancomycin Level Trough 22.2 H 10.0-20.0 UG/ML A/P-Cardiology Admission Diagnosis chest pain nonspecific etiology Pneumonia Pleural effusion Shortness of breath Assessment/Plan Chest pain nonspecific etiology, atypical in presentation, mainly pleuritic in nature, better at this time, reporting improvement Peripheral edema, improving. Continue to monitor. Pleural effusion, history of thoracentesis, still having some residual effusion. Managed by Dr. Malhotra. Pneumonia- continue antibiotic, management per Dr. Malhotra Back pain and shoulder pain, chronic, no changes from baseline. Mild nonobstructive coronary artery disease, cardiac catheterization was done in 2009. Continue to monitor. Permanent atrial fibrillation, continue to monitor, was slightly tachycardic yesterday, better today. [id number] score is 4, yearly risk of stroke without oral anticoagulation is 4 percent, has history of intolerance to amiodarone or Multaq. Coumadin on hold again for supratherapeutic INR. Discussed possibility of changing from Coumadin to NOAC. At this point I recommend holding Coumadin and monitoring H& H closely Valvular heart disease with Severe mitral regurgitation noted on echocardiogram on June 09, 2015, repeat 2-D echocardiogram revealed mild to mod MR, mild AR. continue to monitor Pulmonary hypertension, most recent 2-D echocardiogram done March 2016 revealed PA pressure 30 mmHg. Continue to monitor. Hypertension, controlled. Monitor blood pressure. Hyperlipidemia, continue on current medications and monitor Mild bilateral nonobstructive carotid artery stenosis, last carotid ultrasound was done in August 2016. Continue to monitor. Anxiety Erythromelalgia, with reflex sympathetic dystrophy. Patient has been seen by Dr. Jama Fernandes in [place]. Peripheral neuropathy, patient is status post spinal stimulator. Clinical Quality Measures DVT/VTE Risk/Contraindication: Risk Factor Score Per Nursin VIJAY SIDDIQUI MD Jan 13, 2018 10:12
--- NOTE | 2018-01-13 11:49 | Progress Note-Hospitalist ---
Subjective HPI/CC On Admission Date Seen by Provider: Jan 13, 2018 Time Seen by Provider: 11:44 Subjective/Events-last exam Pt reports having some left sided back pain but is breathing deeper. Still does not feel comfortable DCing home due to her new pain. Objective Exam Vital Signs Vital Signs Date Time Temp Pulse Resp B/P (MAP) Pulse Ox O2 Delivery O2 Flow Rate FiO2 01/08/18 17:40 99.9 109 16 132/76 (94) 95 01/08/18 20:45 Room Air 01/10/18 13:00 21 Capillary Refill : General Appearance: No Apparent Distress, WD/WN Respiratory: Lungs Clear, No Respiratory Distress Cardiovascular: Regular Rate, Rhythm, No Murmur Gastrointestinal: Normal Bowel Sounds, Non Tender, Soft Neurologic/Psychiatric: Alert, Oriented x3, Normal Mood/Affect Results/Procedures Lab Patient resulted labs reviewed. Assessment/Plan Assessment and Plan Assess & Plan/Chief Complaint Assessment: Resistant bilateral pneumonia with leukocytosis now leukocytosis is resolved Chronic debility PAF- INR 2.8 today with coumadin on hold Loose stools Neuropathy Plan: Discussed with Cardiology will resume Coumadin 2mg daily tomorrow Monitor closely as CXR shows slight progression Continue Zosyn for resistant organism, DC Vanc Plan to DC with Augmentin for prolonged course Continue Probiotic along with Imodium Clinical Quality Measures DVT/VTE Risk/Contraindication: Risk Factor Score Per Nursin KERWIN CARRERA MD Jan 13, 2018 11:49 am
--- NOTE | 2018-01-13 13:01 | Therapy Team Discharge Summary ---
Therapy Discharge Summary Discharge Recommendations Date of Discharge Therapy D/C Recommendations: Home w/ Family Support Occupational Therapy Pt admitted to [facility] status following acute hospitalization for UTI and pneumonia. On admission pt required SBA for functional tasks. Skilled OT intervention focused on ADL training, transfers, home safety education, and energy conservation education. Pt is currently completing basic ADLs and transfers with modified independence. Pt is up ad betty in room and is able to complete ADLs. No further skilled OT intervention is indicated at this time. D/ C SWB OT. PT Service Order Taker Goals Half-Way Goals Rollin OT Half-Way Goals Service Order Taker Goals Time Frame: Jan 15, 2018 Bathing(FIM): 5 Upper Body Dressing(FIM): 6 Lower Body Dressing(FIM): 6 Toileting(FIM): 6 Toileting Hygiene (QC): 6 Transfers (B,C,W/C) (FIM): 6 Toilet/Commode Transfer(FIM): 6 Toilet/Commode Transfer (QC): 6 Shower Transfer(FIM): 5 Additional Goals: 1-Demonstrate ADL Tasks, 2-Verbalize Understanding, 3- ImproveStrength/Nieves 1=Demonstrate adherence to instructed precautions during ADL tasks. 2=Patient will verbalize/demonstrate understanding of assistive devices/ modifications for ADL. 3=Patient will improve strength/tolerance for activity to enable patient to perform ADL's. MINNA BROCK OT Jan 13, 2018 13:01
[2018-01-13 17:49] VITALS: BP 134/96
[2018-01-13] MEDS: ESTRADIOL VAGINAL CREAM 42.5 GM (ESTRACE) VG SCH (22:07)
[2018-01-13] MEDS: DILTIAZEM 120 MG (CARDIZEM CD) CAP PO SCH (22:07)
[2018-01-13] MEDS: TEMAZEPAM 15 MG (RESTORIL) CAP PO SCH (22:07)
[2018-01-14] MEDS: PIPERACILLIN SODIUM/TAZOBACTAM 4.5 GM in D5W 100 ML IVPB 100 ML IV SCH ×3 (05:25→20:43)
[2018-01-14] MEDS: CATHETER FLUSH 10 ML SYR IV SCH ×5 (05:26→20:43)
[2018-01-14 05:48] LABS: MEAN PLATELET VOLUME 8.9 FL (7.4-10.4); RED BLOOD COUNT 2.68 10^6/uL (4.35-5.85); RED CELL DISTRIBUTION WIDTH 15.5 % (10.0-14.5)
[2018-01-14 05:59] LABS: INR 2.8 (0.8-1.4); PROTHROMBIN TIME PATIENT 29.2 SEC (12.2-14.7)
[2018-01-14 06:12] VITALS: BP 126/74
[2018-01-14 06:14] LABS: ALBUMIN 2.5 GM/DL (3.2-4.5); BILIRUBIN,TOTAL 0.4 MG/DL (0.1-1.0); CALCIUM 9.3 MG/DL (8.5-10.1); CREATININE SERUM 1.51 MG/DL (0.60-1.30); POTASSIUM 3.8 MMOL/L (3.6-5.0); TOTAL PROTEIN 5.4 GM/DL (6.4-8.2)
[2018-01-14] MEDS: LACTOBACILLUS Acidoph/Bulgar (LACTINEX/FLORANEX) TAB PO SCH ×3 (06:58→16:23)
--- NOTE | 2018-01-14 07:54 | Cardiology Progress Note ---
Subjective Date Seen by Provider: Jan 14, 2018 Time Seen by Provider: 07:52 Subjective/Events-last exam Patient is still having some pleuritic chest pain. No palpitation or shortness of breath Review of Systems General: No Chills, No Night Sweats, No Fatigue, No Malaise, No Appetite, No Other HEENT: No Head Aches, No Visual Changes, No Eye Pain, No Ear Pain, No Dysphasia , No Sinus Congestion, No Post Nasal Drip, No Sore Throat, No Other Pulmonary: No Dyspnea, No Cough; Pleuritic Chest Pain; No Other Cardiovascular: Edema; No: Chest Pain, Palpitations, Orthopnea, Paroxysmal Noc. Dyspnea, Lt Headedness, Other Objective-Cardiology Exam Last Set of Vital Signs Vital Signs 01/13/18 01/14/18 16:05 06:12 Temp 99.2 Pulse 102 Resp 18 B/P (MAP) 126/74 (91) Pulse Ox 97 O2 Delivery Room Air FiO2 21 Capillary Refill : I&O Intake and Output 01/14/18 00:00 Intake Total 1700 ml Output Total 2100 ml Balance -400 ml Intake Oral 1600 ml IV Total 100 ml Output Urine Total 2100 ml # Voids 2 General: Alert, Oriented X3, Cooperative HEENT: Atraumatic, PERRLA Neck: Supple, No JVD, No Thyromegaly Lungs: Clear to Auscultation, Normal Air Movement Heart: Normal S1, Normal S2, No Murmurs, Other (Irregular) Abdomen: Normal Bowel Sounds, Soft, No Tenderness, No Hepatosplenomegaly, No Masses Extremities: No Clubbing, No Cyanosis, Normal Pulses, No Tenderness/Swelling, Other (Mild pedal edema) Skin: No Rashes, No Breakdown, No Significant Lesion Neuro: Normal Gait, Normal Speech, Strength at 5/5 X4 Ext, Normal Tone, Sensation Intact Psych/Mental Status: Mental Status NL, Mood NL Results Lab Laboratory Tests 01/14/18 04:35 A/P-Cardiology Admission Diagnosis chest pain nonspecific etiology Pneumonia Pleural effusion Shortness of breath Assessment/Plan Chest pain nonspecific etiology, atypical in presentation, mainly pleuritic in nature, better at this time, reporting improvement Peripheral edema, improving. Continue to monitor. Pleural effusion, history of thoracentesis, still having some residual effusion. Managed by Dr. Malhotra. Anemia, continue to monitor H&H Pneumonia- continue antibiotic, management per Dr. Malhotra Back pain and shoulder pain, chronic, no changes from baseline. Mild nonobstructive coronary artery disease, cardiac catheterization was done in 2009. Continue to monitor. Permanent atrial fibrillation, continue to monitor, was slightly tachycardic yesterday, better today. [id number] score is 4, yearly risk of stroke without oral anticoagulation is 4 percent, has history of intolerance to amiodarone or Multaq. Coumadin on hold again for supratherapeutic INR. Discussed possibility of changing from Coumadin to NOAC. At this point I recommend holding Coumadin and monitoring H& H closely Valvular heart disease with Severe mitral regurgitation noted on echocardiogram on June 09, 2015, repeat 2-D echocardiogram revealed mild to mod MR, mild AR. continue to monitor Pulmonary hypertension, most recent 2-D echocardiogram done March 2016 revealed PA pressure 30 mmHg. Continue to monitor. Hypertension, controlled. Monitor blood pressure. Hyperlipidemia, continue on current medications and monitor Mild bilateral nonobstructive carotid artery stenosis, last carotid ultrasound was done in August 2016. Continue to monitor. Anxiety Erythromelalgia, with reflex sympathetic dystrophy. Patient has been seen by Dr. Jama Fernandes in [place]. Peripheral neuropathy, patient is status post spinal stimulator. Clinical Quality Measures DVT/VTE Risk/Contraindication: Risk Factor Score Per Nursin VIJAY SIDDIQUI MD Jan 14, 2018 07:54
[2018-01-14] MEDS: FUROSEMIDE 20 MG (LASIX) TAB PO SCH (08:27)
[2018-01-14] MEDS: GABAPENTIN 100 MG (NEURONTIN) CAP PO SCH ×3 (08:27→20:42)
[2018-01-14] MEDS: KCL 10 MEQ TAB (MICRO K) PO SCH ×3 (08:28→20:42)
[2018-01-14] MEDS: RT-ALBUTEROL/IPRATROPIUM 3 ML (DUONEB) VIAL INH SCH ×2 (09:49→19:02)
--- NOTE | 2018-01-14 13:05 | Progress Note-Hospitalist ---
Subjective HPI/CC On Admission Date Seen by Provider: Jan 14, 2018 Time Seen by Provider: 10:00 Subjective/Events-last exam Pt complains of left mid back pain and is concerned her pneumonia is worsening. She is very worried about discharging home and having to come back especially since her pain is worsening. Objective Exam Vital Signs Vital Signs Date Time Temp Pulse Resp B/P (MAP) Pulse Ox O2 Delivery O2 Flow Rate FiO2 01/08/18 17:40 99.9 109 16 132/76 (94) 95 01/08/18 20:45 Room Air 01/10/18 13:00 21 Capillary Refill : General Appearance: No Apparent Distress, WD/WN Respiratory: Lungs Clear, No Accessory Muscle Use, No Respiratory Distress Cardiovascular: Regular Rate, Rhythm, No Murmur Gastrointestinal: Normal Bowel Sounds, Non Tender, Soft Extremity: No Calf Tenderness, Pedal Edema (chronic) Neurologic/Psychiatric: Alert, Oriented x3, Normal Mood/Affect Results/Procedures Lab Laboratory Tests 01/14/18 04:35 Patient resulted labs reviewed. Assessment/Plan Assessment and Plan Assess & Plan/Chief Complaint Assessment: Resistant bilateral pneumonia, leukocytosis is resolved Chronic debility PAF- INR 2.8 again today with coumadin on hold Loose stools Neuropathy Plan: Holding coumadin Monitor closely as CXR from 01/13 shows slight progression, will repeat CXR Continue Zosyn for resistant organism Plan to DC with Augmentin for prolonged course Continue Probiotic along with Imodium for loose stools Will DC with Pulm Rehab follow up Clinical Quality Measures DVT/VTE Risk/Contraindication: Risk Factor Score Per Nursin Copy Copies To 1: SERGEI ROMAN MD, KATELYN M MD Jan 14, 2018 1:05 pm
--- NOTE | 2018-01-14 14:08 | Diagnostic Imaging Report ---
INDICATION: Follow-up pneumonia. TIME OF EXAM: 02:02 p.m. Correlation is made with prior study from one day earlier. FINDINGS: Heart is enlarged but stable. Bilateral effusions persist. The effusions appear to be stable. Upper lobe parenchymal infiltrates appear stable. No new abnormality is seen. There is no pneumothorax. Spinal stimulator overlies the lower thoracic spine. IMPRESSION: Stable parenchymal infiltrates and pleural effusions when compared with exam one day earlier. Dictated by: Dictated on workstation # [id number]
--- NOTE | 2018-01-14 15:30 | Pulmonary Progress Note ---
Subjective Time Seen by Provider: 15:29 Subjective/Events-last exam Pt is sitting up in chair on RA. no complications noted. Exam Exam Vital Signs Date Time Temp Pulse Resp B/P (MAP) Pulse Ox O2 Delivery O2 Flow Rate FiO2 01/14/18 09:49 97 Room Air 01/14/18 08:35 Room Air 01/14/18 06:12 99.2 102 18 126/74 (91) 97 Room Air 01/13/18 20:00 Room Air 01/13/18 19:12 98 Room Air 01/13/18 17:49 99.6 111 17 134/96 (109) 97 Room Air 01/13/18 16:05 90 98 21 I & O 01/14/18 07:00 Intake Total 1700 ml Output Total 1700 ml Balance 0 ml General Appearance: No Apparent Distress, WD/WN Respiratory: Lungs Clear, No Accessory Muscle Use, No Respiratory Distress Cardiovascular: Regular Rate, Rhythm, No Murmur Extremity: No Calf Tenderness, Pedal Edema (chronic) Neurologic/Psychiatric: Alert, Oriented x3, Normal Mood/Affect Skin: Normal Color, Warm/Dry Results Lab Laboratory Tests 01/14/18 04:35 Assessment/Plan Assessment/Plan Pneumonia - improving -Currently on zosyn -repeat PA/Lat CXR today Paroxysmal Afib -Cardiology following -Coumadin is on hold secondary to coagulopathy pulmonary edema -lasix 232 SHITAL HUDSON DO Jan 14, 2018 15:30
[2018-01-14 18:00] VITALS: BP 136/79
[2018-01-14] MEDS: IBUPROFEN TABLET 200 MG TAB PO PRN (18:17)
[2018-01-14] MEDS: TEMAZEPAM 15 MG (RESTORIL) CAP PO SCH (20:42)
[2018-01-14] MEDS: ESTRADIOL VAGINAL CREAM 42.5 GM (ESTRACE) VG SCH (20:42)
[2018-01-14] MEDS: DILTIAZEM 120 MG (CARDIZEM CD) CAP PO SCH (20:42)
[2018-01-15] MEDS: CATHETER FLUSH 10 ML SYR IV SCH ×4 (03:18→13:31)
[2018-01-15] MEDS: LACTOBACILLUS Acidoph/Bulgar (LACTINEX/FLORANEX) TAB PO SCH ×2 (05:22→11:29)
[2018-01-15] MEDS: PIPERACILLIN SODIUM/TAZOBACTAM 4.5 GM in D5W 100 ML IVPB 100 ML IV SCH (05:22)
--- NOTE | 2018-01-15 05:41 | Pulmonary Progress Note ---
Subjective Time Seen by Provider: 05:41 Subjective/Events-last exam NO complications noted. Exam Exam Vital Signs Date Time Temp Pulse Resp B/P (MAP) Pulse Ox O2 Delivery O2 Flow Rate FiO2 01/14/18 20:00 Room Air 01/14/18 19:03 95 Room Air 01/14/18 18:00 99.4 111 17 136/79 (98) 98 Room Air 01/14/18 09:49 97 Room Air 01/14/18 08:35 Room Air 01/14/18 06:12 99.2 102 18 126/74 (91) 97 Room Air I & O 01/15/18 07:00 Intake Total 1480 ml Output Total 1900 ml Balance -420 ml General Appearance: No Apparent Distress, WD/WN Respiratory: Lungs Clear, No Accessory Muscle Use, No Respiratory Distress Cardiovascular: Regular Rate, Rhythm, No Murmur Extremity: No Calf Tenderness, Pedal Edema (chronic) Neurologic/Psychiatric: Alert, Oriented x3, Normal Mood/Affect Skin: Normal Color, Warm/Dry Results Lab Laboratory Tests 01/14/18 04:35 Assessment/Plan Assessment/Plan Pneumonia - improving -Currently on zosyn d/c after todays dosing. It will be 7 days of Zosyn -pt is not requiring oxygen Paroxysmal Afib -Cardiology following pulmonary edema - improved -lasix pt is ok from pulmonary standpoint for discharge. 232 SHITAL HUDSON DO Jan 15, 2018 05:41
[2018-01-15 05:51] VITALS: BP 130/83
[2018-01-15 06:13] LABS: INR 2.1 (0.8-1.4); PROTHROMBIN TIME PATIENT 23.7 SEC (12.2-14.7)
[2018-01-15] MEDS: FUROSEMIDE 20 MG (LASIX) TAB PO SCH (08:36)
[2018-01-15] MEDS: GABAPENTIN 100 MG (NEURONTIN) CAP PO SCH ×2 (08:36→13:30)
[2018-01-15] MEDS: KCL 10 MEQ TAB (MICRO K) PO SCH ×2 (08:36→13:30)
--- NOTE | 2018-01-15 08:58 | Cardiology Progress Note ---
Subjective Date Seen by Provider: Jan 15, 2018 Time Seen by Provider: 08:55 Subjective/Events-last exam Patient is sitting up in chair, no new complaints. Denies any CP or dizziness. Review of Systems General: No Night Sweats, No Fatigue, No Malaise HEENT: No Visual Changes, No Dysphasia, No Sore Throat Pulmonary: No Dyspnea, No Cough Cardiovascular: No: Chest Pain, Palpitations Gastrointestinal: No: Nausea, Vomiting Genitourinary: No Dysuria, No Frequency Musculoskeletal: No: neck pain, back pain Neurological: No: Weakness, Numbness, Change in speech Objective-Cardiology Exam Last Set of Vital Signs Vital Signs 01/13/18 01/15/18 16:05 05:51 Temp 97.8 Pulse 103 Resp 17 B/P (MAP) 130/83 (99) Pulse Ox 98 O2 Delivery Room Air FiO2 21 Capillary Refill : I&O Intake and Output 01/15/18 00:00 Intake Total 1780 ml Output Total 1900 ml Balance -120 ml Intake Oral 1680 ml IV Total 100 ml Output Urine Total 1900 ml # Voids 1 # Bowel Movements 2 General: Alert, Oriented X3, Cooperative HEENT: Atraumatic, PERRLA Neck: Supple, No JVD, No Thyromegaly Lungs: Clear to Auscultation, Normal Air Movement Heart: Normal S1, Normal S2, No Murmurs, Other (Irregular) Abdomen: Normal Bowel Sounds, Soft, No Tenderness, No Hepatosplenomegaly, No Masses Extremities: No Clubbing, No Cyanosis, Normal Pulses, No Tenderness/Swelling, Other (Mild pedal edema) Skin: No Rashes, No Breakdown, No Significant Lesion Neuro: Normal Gait, Normal Speech, Strength at 5/5 X4 Ext, Normal Tone, Sensation Intact Psych/Mental Status: Mental Status NL, Mood NL A/P-Cardiology Admission Diagnosis chest pain nonspecific etiology Pneumonia Pleural effusion Shortness of breath Assessment/Plan Chest pain nonspecific etiology, atypical in presentation, mainly pleuritic in nature, better at this time, reporting improvement Peripheral edema, improving. Continue to monitor. Pleural effusion, history of thoracentesis, still having some residual effusion. Managed by Dr. Malhotra. Anemia, continue to monitor H&H Pneumonia- continue antibiotic, management per Dr. Malhotra Back pain and shoulder pain, chronic, no changes from baseline. Mild nonobstructive coronary artery disease, cardiac catheterization was done in 2009. Continue to monitor. Permanent atrial fibrillation, continue to monitor,rate controlled. [id number] score is 4, yearly risk of stroke without oral anticoagulation is 4 percent, has history of intolerance to amiodarone or Multaq. Maintained on Coumadin, continue to monitor PT/INR. Valvular heart disease with Severe mitral regurgitation noted on echocardiogram on June 09, 2015, repeat 2-D echocardiogram revealed mild to mod MR, mild AR. continue to monitor Pulmonary hypertension, most recent 2-D echocardiogram done March 2016 revealed PA pressure 30 mmHg. Continue to monitor. Hypertension, controlled. Monitor blood pressure. Hyperlipidemia, continue on current medications and monitor Mild bilateral nonobstructive carotid artery stenosis, last carotid ultrasound was done in August 2016. Continue to monitor. Anxiety Erythromelalgia, with reflex sympathetic dystrophy. Patient has been seen by Dr. Jama Fernandes in [place]. Peripheral neuropathy, patient is status post spinal stimulator. Clinical Quality Measures DVT/VTE Risk/Contraindication: Risk Factor Score Per Nursin CK BATEMAN Jan 15, 2018 08:58
[2018-01-15] MEDS ORDERED: WARF2TAB PO (10:53)
[2018-01-15] MEDS ORDERED: AMOX-358 PO (10:53)
--- NOTE | 2018-01-15 10:56 | Discharge Inst-Simple/Standard ---
Discharge Inst-Standard Discharge Medications New, Converted or Re-Newed RX: Call to Patients Pharmacy Patient Instructions/Follow Up Plan of Care/Instructions/FU: Please continue to take your medications as written. If your symptoms return or worse please seek evaluation with your PCP or in the ER if he is unavailable or it is an emergency. Activity as Tolerated: Yes Discharge Diet: Low Sodium Diet Return to The Hospital For: Worsening SOB, chest pain, fever unresponsive to tylenol or ibuprofen, or you feel you are getting worse. KERWIN CARRERA MD Jan 15, 2018 10:56 am
--- NOTE | 2018-01-15 11:07 | Discharge Summary-Hospitalist ---
Diagnosis/Chief Complaint Date of Admission Jan 08, 2018 at 12:05 Date of Discharge Discharge Date: Jan 15, 2018 Discharge Diagnosis Assessment: Resistant bilateral pneumonia, leukocytosis is resolved Chronic debility PAF- INR 2.1 Loose stools Neuropathy Discharge Summary Procedures/Consulations Dr Malhotra- Pulm Dr Lilly- Cardiology Discharge Physical Exam Allergies: Coded Allergies: dronedarone (Verified Allergy, Unknown, 04/12/16) hydrochlorothiazide (Verified Allergy, Unknown, 04/12/16) metoprolol (Unverified Allergy, Unknown, 04/18/16) Tetracyclines (Verified Adverse Reaction, Intermediate, SEVERE HEARTBURN, 11/05/17) Severe Heartburn amiodarone (Verified Adverse Reaction, Intermediate, MADE HER COLD, 11/05/17 ) clindamycin (Verified Adverse Reaction, Mild, HEARTBURN, 11/05/17) Vitals & I&Os Vital Signs Date Time Temp Pulse Resp B/P (MAP) Pulse Ox O2 Delivery O2 Flow Rate FiO2 01/15/18 05:51 97.8 103 17 130/83 (99) 98 Room Air 01/13/18 16:05 21 General Appearance: Alert, Oriented X3 Neuro: Normal Gait (with FWW), Normal Speech Psych/Mental Status: Mental Status NL Hospital Course Pt is an 82yoCF who was admitted to swing bed for prolonged IV antibiotics due to recurrent pneumonia. Cardiology and Pulmonology were consulted for assistance. She improved and was off oxygen at time of discharge. She was offered home health to assist with her transition home but she declined that service. She was referred to Pulmonary Rehab and she is to follow up with Dr Reddy and Dr Malhotra in 1-2 weeks. She will continue on her Warfarin for now at 2mg daily and will follow with Dr Lilly in regards to her a-fib and anticoagulation. We did discuss options for higher level of care at discharge ( [facility] vs SNF) and she states she will look in to those. Discussed return precautions and patient verbalized understanding. Labs (last 24 hrs) Laboratory Tests 01/15/18 05:43: Prothrombin Time 23.7H, INR Comment 2.1H Patient resulted labs reviewed. Pending Labs Laboratory Tests 01/15/18 05:43: Prothrombin Time 23.7, INR Comment 2.1 Discussion & Recommendations Discharge Planning: >30 minutes discharge planning Discharge Home Medications: Active Scripts Active Augmentin 875-125 Tablet (Amoxicillin/Potassium Clav) 1 Each Tablet 1 Each PO BID Coumadin (Warfarin Sodium) 2 Mg Tablet 2 Mg PO DAILY@1800 Cefdinir 300 Mg Capsule 300 Mg PO BID Azithromycin 250 Mg Tablet 250 Mg PO UD TAKE 2 TABLETS ON DAY ONE THEN TAKE 1 TABLET DAILY FOR FOUR MORE DAYS Reported Tylenol Extra Strength (Acetaminophen) 500 Mg Tablet 500-1,000 Mg PO Q6H PRN Ibuprofen 200 Mg Tablet 400 Mg PO TID PRN Warfarin Sodium 2 Mg Tablet 4 Mg PO SUTUWETHSA TAKES 2 (2MG) TABLETS Warfarin Sodium 2 Mg Tablet 2 Mg PO MOFR Klor-Con M10 (Potassium Chloride) 10 Meq Tab.er.prt 10 Meq PO DAILY Furosemide 20 Mg Tablet 20 Mg PO DAILY Vitamin D3 (Cholecalciferol (Vitamin D3)) 2,000 Unit Capsule 2,000 Unit PO DAILY Centrum Silver Women Tablet (Multivits-Min/Iron/FA/Lutein) 1 Each Tablet 1 Tab PO DAILY Citracal + D Maximum Caplet (Calcium Citrate/Vitamin D3) 1 Each Tablet 1 Tab PO 1300 Methadone HCl 10 Mg Tablet 5 Mg PO DAILY PRN TAKES 1/2 (10MG) TABLET Magnesium (Magnesium Oxide) 250 Mg Tablet 250 Mg PO DAILY Probiotic (Lactobacillus Combination No.4) 1 Each Capsule 1 Cap PO DAILY Ketotifen Fumarate 5 Ml Drops 1 Drop OU DAILY PRN Flonase Allergy Relief (Fluticasone Propionate) 9.9 Ml [place].susp 1 [place] NS DAILY PRN Sf 5000 Plus (Sodium Fluoride) 51 Gm Cream..g. DT HS Calci-Chew (Calcium Carbonate) 500 Mg Tab.chew 500 Mg PO DAILY Gabapentin 100 Mg Capsule 100 Mg PO TID Triazolam 0.25 Mg Tablet 0.25 Mg PO HS Cardizem LA (Diltiazem HCl) 120 Mg Tab.er.24h 120 Mg PO HS Fish Oil 1,200 mg Fish Oil (Fish Oil/Dha/Epa) 1 Each Capsule 1,200 Mg PO TID Estrace Cream (Estradiol) 42.5 Gm Cream.appl TP HS Instructions to patient/family Please see electronic discharge instructions given to patient. Clinical Quality Measures DVT/VTE Risk/Contraindication: Risk Factor Score Per Nursin Copy Copies To 1: SHITAL MALHOTRA DO; VIJAY LILLY MD; SERGEI REDDY MD, KATELYN M MD Jan 15, 2018 11:07
[2018-01-15] MEDS: RT-ALBUTEROL/IPRATROPIUM 3 ML (DUONEB) VIAL INH SCH (11:15)
[2018-01-15 14:09] VITALS: BP 130/83
== END 2018-01-15 14:09 | disposition home or self-care (01) | DRG 194 ==
LOC: 4TH 12:05
PROVIDERS: ADMIT Internal Medicine; ATTEND Internal Medicine
DX: J18.9 Pneumonia, unspecified organism (principal); J90 Pleural effusion, not elsewhere classified; R07.81 Pleurodynia; I27.20 Pulmonary hypertension, unspecified; I08.0 Rheumatic disorders of both mitral and aortic valves; Z66 Do not resuscitate; I48.0 Paroxysmal atrial fibrillation; I10 Essential (primary) hypertension; I65.23 Occlusion and stenosis of bilateral carotid arteries; G62.9 Polyneuropathy, unspecified; F41.9 Anxiety disorder, unspecified; K21.9 Gastro-esophageal reflux disease without esophagitis; E78.5 Hyperlipidemia, unspecified; D64.9 Anemia, unspecified; M81.0 Age-related osteoporosis without current pathological fracture; K59.09 Other constipation; I73.81 Erythromelalgia; R53.81 Other malaise; R60.0 Localized edema; E87.6 Hypokalemia; E83.42 Hypomagnesemia; R79.1 Abnormal coagulation profile; R19.7 Diarrhea, unspecified; Z87.440 Personal history of urinary (tract) infections
CPT/HCPCS: 36415; 71046; 80048; 80053; 80202; 83735; 85025; 85027; 85610; 94640; 94760

== ENCOUNTER → 2018-02-05 | Outpatient (CLI) | payer MEDICARE, OTHER ==
[~2018-02-05] MED LIST changes: +AMOX-355 PO; +AMOX-358 PO; +CEPH250T PO; +FURO40TA4 PO; +HYDR-3812 PO; +WARF2TAB PO
[2018-02-05 11:32] LABS: BASOPHILS # (AUTO) 0.1 10^3/uL (0.0-0.1); BASOPHILS % (AUTO) 1 % (0-10); EOSINOPHILS # (AUTO) 0.3 10^3/uL (0.0-0.3); EOSINOPHILS % (AUTO) 3 % (0-10); HEMATOCRIT 27 % (35-52); HEMOGLOBIN 8.6 G/DL (11.5-16.0); LYMPHOCYTES # (AUTO) 2.2 X 10^3 (1.0-4.0); LYMPHOCYTES % (AUTO) 20 % (12-44); MEAN CORPUSCULAR HEMOGLOBIN 29 PG (25-34); MEAN CORPUSCULAR HGB CONC 32 G/DL (32-36); MEAN CORPUSCULAR VOLUME 92 FL (80-99); MONOCYTES # (AUTO) 0.8 X 10^3 (0.0-1.0); MONOCYTES % (AUTO) 7 % (0-12); NEUTROPHILS # (AUTO) 7.8 X 10^3 (1.8-7.8); NEUTROPHILS % (AUTO) 70 % (42-75); PLATELET COUNT 493 10^3/uL (130-400); RED BLOOD COUNT 2.95 10^6/uL (4.35-5.85); WHITE BLOOD COUNT 11.2 10^3/uL (4.3-11.0)
--- NOTE | 2018-02-05 12:57 | Diagnostic Imaging Report ---
EXAMINATION: PA and lateral Chest at 12:09 p.m. INDICATION: Pneumonia. FINDINGS: The cardiomegaly and the bibasilar pneumonia/atelectasis and bilateral pleural effusions noted on the prior exam of 01/14/2018 are again evident and no different. The vague area of increased density overlying the left upper lung periphery and the apical scarring on the right seen previously are also unchanged. The mediastinum is not widened. The osseous structures are intact. The dorsal stimulator leads overlying the lower thoracic spine seen previously are again evident and no different. IMPRESSION: 1. There is persistent cardiomegaly and bibasilar atelectasis/infiltrate and bilateral pleural effusions. When compared to the prior exam, there does not appear to have been any significant change. 2. If clinical concern regarding an underlying acute abnormality persists and further evaluation is desired, then CT of the chest would be recommended. Dictated by: Dictated on workstation # [id number]
== END ==
LOC: RAD 11:11
PROVIDERS: ATTEND Nurse Practitioner Family
DX: J18.9 Pneumonia, unspecified organism (principal); J90 Pleural effusion, not elsewhere classified; I51.7 Cardiomegaly; M79.89 Other specified soft tissue disorders
CPT/HCPCS: 36415; 71046; 85025

== ENCOUNTER 2018-02-10 12:46 | Outpatient (RCR) | payer MEDICARE, OTHER ==
[~2018-02-10 12:46] MED LIST changes: -AMOX-355 PO; -CEPH250T PO; -FURO40TA4 PO; -HYDR-3812 PO
[2018-02-18] MEDS ORDERED: FURO40TA4 PO (10:40)
[2018-02-18] MEDS ORDERED: WARF-47 PO (10:40)
[2018-02-20] MEDS ORDERED: AMOX-355 PO (09:51)
[2018-02-20] MEDS ORDERED: HYDR-3812 PO (09:51)
[2018-03-01] MEDS ORDERED: CEPH250T PO (23:01)
[2018-04-10] MEDS ORDERED: POTA20TA15 PO (14:47)
[2018-04-10] MEDS ORDERED: WARF-47 PO (14:47)
[2018-04-15] MEDS ORDERED: HYDR-3870 PO (10:37)
[2018-04-15] MEDS ORDERED: PHEN-640 PO (10:37)
[2018-04-15] MEDS ORDERED: NITR-65 PO (10:37)
== END 2018-05-11 | disposition home or self-care (01) ==
LOC: PULM 12:46
PROVIDERS: ATTEND Family Medicine
DX: I27.20 Pulmonary hypertension, unspecified (principal); J18.9 Pneumonia, unspecified organism
CPT/HCPCS: 99211

== ENCOUNTER 2018-02-18 05:41 | Outpatient (CLI) | payer MEDICARE, OTHER ==
[~2018-02-18] VITALS: Ht 160 cm; Wt 56.7 kg
[2018-02-18] MEDS ORDERED: WARF-47 PO (10:40)
[2018-02-18] MEDS ORDERED: FURO40TA4 PO (10:40)
== END 2018-02-18 11:15 ==
LOC: PREOP 05:41
PROVIDERS: ATTEND Otolaryngology Otolaryngology/Facial Plastic Surgery
DX: Z01.818 Encounter for other preprocedural examination (principal)

== ENCOUNTER 2018-02-20 06:07 | Day surgery (SDC) | payer MEDICARE, OTHER ==
[~2018-02-20] VITALS: Ht 160 cm; Wt 56.7 kg
[~2018-02-20 06:07] MED LIST changes: +FURO40TA4 PO
[2018-02-20 06:30] VITALS: BP 128/74
[2018-02-20 06:46] LABS: BASOPHILS % (AUTO) 0 % (0-10); EOSINOPHILS # (AUTO) 0.6 10^3/uL (0.0-0.3); EOSINOPHILS % (AUTO) 6 % (0-10); HEMATOCRIT 26 % (35-52); HEMOGLOBIN 8.2 G/DL (11.5-16.0); LYMPHOCYTES # (AUTO) 2.2 X 10^3 (1.0-4.0); LYMPHOCYTES % (AUTO) 20 % (12-44); MEAN CORPUSCULAR HEMOGLOBIN 29 PG (25-34); MEAN CORPUSCULAR HGB CONC 32 G/DL (32-36); MEAN CORPUSCULAR VOLUME 91 FL (80-99); MEAN PLATELET VOLUME 8.7 FL (7.4-10.4); MONOCYTES # (AUTO) 1.2 X 10^3 (0.0-1.0); MONOCYTES % (AUTO) 11 % (0-12); NEUTROPHILS # (AUTO) 7.1 X 10^3 (1.8-7.8); NEUTROPHILS % (AUTO) 63 % (42-75); PLATELET COUNT 524 10^3/uL (130-400); RED BLOOD COUNT 2.81 10^6/uL (4.35-5.85); RED CELL DISTRIBUTION WIDTH 16.3 % (10.0-14.5); WHITE BLOOD COUNT 11.2 10^3/uL (4.3-11.0)
[2018-02-20] MEDS ORDERED: LACTATED RINGERS 1,000 ML IV PRN (06:49)
[2018-02-20] MEDS ORDERED: ISOFLURANE (FORANE) 15 ML/15 MIN INHALATION ONE ×3 (06:54→08:45)
[2018-02-20] MEDS ORDERED: proPOfol 200 MG/20 ML (DIPRIVAN) VIAL IV ONE (06:54)
[2018-02-20] MEDS ORDERED: ONDANSETRON 4 MG/2 ML (SDV) Z0FRAN ONE (06:54)
[2018-02-20] MEDS ORDERED: LIDOCAINE PF 0.5% 50 ML (XYLOCAINE) VIAL ONE (06:54)
[2018-02-20] MEDS ORDERED: fentaNYL INJECTION 100 MCG/2 ML AMP ONE (06:54)
[2018-02-20] MEDS ORDERED: DEXAMETHASONE 10 MG/ML (DECADRON) 1 ML VIAL ONE (06:54)
[2018-02-20] MEDS ORDERED: LIDOCAINE 1% INJ 20 ML 20 ML VIAL ONE (07:00)
[2018-02-20] MEDS ORDERED: LIDOCAINE/EPI 1%-1:200,000 (XYLOCAINE) 10 ML VIAL ONE (07:00)
[2018-02-20] MEDS ORDERED: MUPIROCIN 2% OINT 22 GM (BACTROBAN) TUBE ONE (07:01)
--- NOTE | 2018-02-20 07:01 | Progress Note-Pre Operative ---
Pre-Operative Progress Note H&P Reviewed The H&P was reviewed, patient examined and no changes noted. Date Seen by Provider: February 20, 2018 Time Seen by Provider: 07:00 Date H&P Reviewed: February 20, 2018 Time H&P Reviewed: 07:00 Pre-Operative Diagnosis: Dog Bite to NOse iwth Tissue Loss MALLORY TRINIDAD MD February 20, 2018 7:01 am
[2018-02-20 07:06] LABS: CALCIUM 9.8 MG/DL (8.5-10.1); CREATININE SERUM 2.14 MG/DL (0.60-1.30); POTASSIUM 3.9 MMOL/L (3.6-5.0)
[2018-02-20 07:14] LABS: INR 2.4 (0.8-1.4)
[2018-02-20] MEDS ORDERED: SEVOFLURANE (ULTANE) 15 ML INHAL SOLN ONE ×2 (07:29→08:45)
[2018-02-20] MEDS ORDERED: BSS 15 ML ONE (08:41)
[2018-02-20] MEDS ORDERED: PHENYLEPHRINE 100 MCG/ML 10 ML (ANESTHESIA) SYR ONE (08:47)
--- NOTE | 2018-02-20 08:48 | Progress Note-Post Operative ---
Post-Operative Progess Note Surgeon (s)/Psych Rn (s) Surgeon MALLORY TRINIDAD MD Psych Rn n/a Pre-Operative Diagnosis Dog Bite to NOse iwth Tissue Loss Post-Operative Diagnosis same Post-Op Procedure Note Date of Procedure: February 20, 2018 Name of Procedure Performed: FTSG to Right NOse, Donor Site Right Neck Description & Findings Description and Findings: n/a Anesthesia Type lma Estimated Blood Loss minimal Packing none. Specimen(s) collected/removed none MALLORY TRINIDAD MD February 20, 2018 8:48 am
[2018-02-20] MEDS ORDERED: ONDANSETRON 4 MG/2 ML (SDV) Z0FRAN IVP PRN (09:00)
[2018-02-20] MEDS ORDERED: HYDROcodone/APAP 5 MG/325 MG (LORTAB) TAB PO PRN (09:00)
[2018-02-20] MEDS ORDERED: ACETAMINOPHEN 325 MG TABLET/CAPLET (TYLENOL) PO PRN (09:00)
[2018-02-20] MEDS ORDERED: fentaNYL INJECTION 100 MCG/2 ML AMP IVP PRN (09:00)
[2018-02-20 09:35] VITALS: BP 103/64
[2018-02-20 09:36] VITALS: BP 103/64
[2018-02-20] MEDS ORDERED: HYDR-3812 PO (09:51)
[2018-02-20] MEDS ORDERED: AMOX-355 PO (09:51)
[2018-02-20 10:05] VITALS: BP 111/67
[2018-02-20 10:35] VITALS: BP 115/90
--- NOTE | 2018-02-20 13:55 | Anesthesia-General Post-Op ---
General Patient Condition Mental Status/LOC: Same as Preop Cardiovascular: Satisfactory Nausea/Vomiting: Absent Respiratory: Satisfactory Pain: Controlled Complications: Absent Post Op Complications Complications None Follow Up Care/Instructions Patient Instructions None needed. Anesthesia/Patient Condition Patient Condition Patient was seen after the procedure and she was doing well, no complaints, stable vital signs, no apparent adverse anesthesia problems. HAI STEWART DO February 20, 2018 13:55
== END 2018-02-20 10:45 | disposition home or self-care (01) ==
LOC: SDC 06:07
PROVIDERS: ATTEND Otolaryngology Otolaryngology/Facial Plastic Surgery
DX: S01.25XA Open bite of nose, initial encounter (principal); I48.2 Chronic atrial fibrillation; I10 Essential (primary) hypertension; I08.0 Rheumatic disorders of both mitral and aortic valves; I27.20 Pulmonary hypertension, unspecified; W54.0XXA Bitten by dog, initial encounter; Z79.01 Long term (current) use of anticoagulants; Z79.899 Other long term (current) drug therapy
CPT/HCPCS: 36415; 80048; 85025; 85610; 87081; 93005

== ENCOUNTER 2018-03-01 19:22 | Emergency (ER) | payer MEDICARE, OTHER ==
[~2018-03-01] VITALS: Ht 160 cm; Wt 55.3 kg
[~2018-03-01 19:22] MED LIST changes: +AMOX-355 PO; +HYDR-3812 PO
--- NOTE | 2018-03-01 20:33 | ED GU-Female ---
General Chief Complaint: -Female Stated Complaint: BLEEDING VAGINALLY,PAINFUL TO SIT DOWN Nursing Triage Note: PT PRESENTS TO ER WITH COMPLAINT OF VAGINAL BLEEDING. PT REPORTS THAT IT IS ALSO PAINFUL WHEN SHE SITS DOWN. Nursing Sepsis Screen: No Definite Risk Source: patient Exam Limitations: no limitations History of Present Illness Date Seen by Provider: Mar 01, 2018 Time Seen by Provider: 20:23 Initial Comments Here with report of blood from the vaginal area. She does complain of dysuria and pain in the bladder area. Patient is on warfarin for atrial fibrillation. Denies fever or chills. Denies nausea or vomiting. Does have history of urinary tract infections in the past and within the last few months. Has swelling of her legs it appears to be chronic although fluctuates. There is some redness to the lower extremities also but she states that is chronic. Timing/Duration: yesterday, getting worse Severity/Quality: mild, burning Location: suprapubic, vaginal, urethral Radiation: none Activities at Onset: none Modifying Factors: Worsens With Urinating Associated Symptoms: dysuria; No fever/chills, No lower back pain, No nausea/ vomiting; urinary frequency Allergies and Home Medications Allergies Coded Allergies: dronedarone (Verified Allergy, Unknown, 04/12/16) hydrochlorothiazide (Verified Allergy, Unknown, 04/12/16) metoprolol (Unverified Allergy, Unknown, 04/18/16) Tetracyclines (Verified Adverse Reaction, Intermediate, SEVERE HEARTBURN, 11/05/17) Severe Heartburn amiodarone (Verified Adverse Reaction, Intermediate, MADE HER COLD, 11/05/17 ) clindamycin (Verified Adverse Reaction, Mild, HEARTBURN, 11/05/17) Home Medications Acetaminophen 500 Mg Tablet, 500-1,000 MG PO Q6H PRN for PAIN-MILD, (Reported) Amoxicillin/Potassium Clav 1 Each Tablet, 1 EACH PO BID Prescribed by: NORBERTO LEMUS on 02/20/18 0951 Calcium Carbonate 500 Mg Tab.chew, 500 MG PO DAILY, (Reported) Calcium Citrate/Vitamin D3 1 Each Tablet, 1 TAB PO 1300, (Reported) Cephalexin 250 Mg Tablet, 250 MG PO BID Prescribed by: DEANNA REID on 03/01/18 2301 Cholecalciferol (Vitamin D3) 2,000 Unit Capsule, 2,000 UNIT PO DAILY, (Reported) Diltiazem HCl 120 Mg Tab.er.24h, 120 MG PO HS, (Reported) Estradiol 42.5 Gm Cream.appl, TP HS, (Reported) Fish Oil/Dha/Epa 1 Each Capsule, 1,200 MG PO TID, (Reported) Fluticasone Propionate 9.9 Ml [place].susp, 1 SPRAY NS DAILY PRN for ALLERGIES, ( Reported) Furosemide 40 Mg Tablet, 40 MG PO DAILY, (Reported) Gabapentin 100 Mg Capsule, 100 MG PO TID, (Reported) Hydrocodone/Acetaminophen 1 Each Tablet, 1 EACH PO Q4H PRN for PAIN-MODERATE Prescribed by: NORBERTO LEMUS on 02/20/18 0951 Ibuprofen 200 Mg Tablet, 400 MG PO TID PRN for PAIN-MILD, (Reported) Ketotifen Fumarate 5 Ml Drops, 1 DROP OU DAILY PRN for ALLERGIES, (Reported) Lactobacillus Combination No.4 1 Each Capsule, 1 CAP PO DAILY, (Reported) Magnesium Oxide 250 Mg Tablet, 250 MG PO DAILY, (Reported) Methadone HCl 10 Mg Tablet, 5 MG PO DAILY PRN for FOOT PAIN, (Reported) TAKES 1/2 (10MG) TABLET Multivits-Min/Iron/FA/Lutein 1 Each Tablet, 1 TAB PO DAILY, (Reported) Potassium Chloride 10 Meq Tab.er.prt, 10 MEQ PO DAILY, (Reported) Sodium Fluoride 51 Gm Cream..g., DT HS, (Reported) Triazolam 0.25 Mg Tablet, 0.25 MG PO HS, (Reported) Patient Home Medication List Home Medication List Reviewed: Yes Review of Systems Constitutional: see HPI; No chills, No fever EENTM: no symptoms reported Respiratory: No short of breath, No wheezing Cardiovascular: No chest pain, No palpitations Gastrointestinal: No abdominal pain, No nausea, No vomiting Genitourinary: dysuria, frequency Musculoskeletal: no symptoms reported All Other Systemes Reviewed Negative Unless Noted: Yes Past Nvodxup-Gensjh-Uvzwmc Hx Past Med/Social Hx: Reviewed Nursing Past Med/Soc Hx Patient Social History Alcohol Use: Occasionally Uses Number of Drinks Today: II Alcohol Beverage of Choice: Wine, Other Recreational Drug Use: No Smoking Status: Never a Smoker 2nd Hand Smoke Exposure: No Recent Foreign Travel: No Contact w/Someone Who Travel: No Recent Infectious Disease Expo: No Recent Hopitalizations: Yes (december-) Immunizations Up To Date Tetanus Booster (TDap): Unknown PED Vaccines UTD: Yes Date of Pneumonia Vaccine: Jun 30, 2017 Date of Influenza Vaccine: Oct 17, 2017 Seasonal Allergies Seasonal Allergies: Yes Past Medical History Surgeries: Yes ( "STIMULATOR" IN BACK, RIGHT ANKLE SURGERY) Appendectomy, Hysterectomy, Neurological, Orthopedic, Tonsillectomy Respiratory: Yes (WHOOPING COUGH AT AGE 6YRS.; PULMONARY HTN, left pleural effusion) Pneumonia Currently Using CPAP: No Currently Using BIPAP: No Cardiac: Yes (MITRAL AND AORTIC VALVE DISEASE; MILD CAROTID DISEASE) Atrial Fibrillation, Hypertension, Valvular Heart Disease Neurological: Yes ("NEUROPATHY ALL OVER"; RSD) Neuropathy Reproductive Disorders: No SUPPORT SERVICES SPECIALIST History: Hysterectomy HIV/AIDS: No Genitourinary: Yes UTI-Chronic Gastrointestinal: Yes Gastroesophageal Reflux Musculoskeletal: Yes (CHRONIC NECK PAIN, LUMBAR RADICULOPATHY; KYPHOSIS) Osteoporosis, Arthritis, Chronic Back Pain Endocrine: No HEENT: No Loss of Vision: Bilateral Cancer: No Psychosocial: Yes Sleep Difficulties, Anxiety Integumentary: Yes (dog bit nasal tip) Blood Disorders: No Adverse Reaction/Blood Tranf: No (N/A) Family Medical History Reviewed Nursing Family Hx COPD Physical Exam Vital Signs Vital Signs - First Documented 03/01/18 20:15 Temp 96.6 Pulse 83 Resp 20 B/P (MAP) 140/93 (109) Pulse Ox 98 O2 Delivery Room Air Capillary Refill : Less Than 3 Seconds General Appearance: WD/WN, no apparent distress HEENT: PERRL/EOMI, pharynx normal Neck: full range of motion, supple Cardiovascular: regular rate, rhythm, no murmur Respiratory: lungs clear, normal breath sounds Gastrointestinal: non tender, soft Back: normal inspection, no CVA tenderness, no vertebral tenderness Extremities: non-tender, pedal edema Neurologic/Psychiatric: alert, oriented x 3 Skin: warm/dry, other (erythema noted to bilateral lower extremities from the toes to the area just distal to the knees. 2+ edema noted bilaterally lower extremities in the same areas.) Focused Exam Lactate Level 03/01/18 20:35: Lactic Acid Level 0.80 Lactic Acid Level Laboratory Tests Test 03/01/18 20:35 Lactic Acid Level 0.80 MMOL/L (0.50-2.00) Progress/Results/Core Measures Suspected Sepsis Recent Fever Within 48 Hours: No Infection Criteria Present: None New/Unexplained Altered Menta: No Sepsis Screen: No Definite Risk SIRS Temperature:96.6 Pulse: 83 Respiratory Rate: 20 Laboratory Tests 03/01/18 20:35: White Blood Count 12.0H Blood Pressure 140 /93 Mean: 109 03/01/18 20:35: Lactic Acid Level 0.80 Laboratory Tests 03/01/18 20:35: Creatinine 2.27H, INR Comment 1.7H, Platelet Count 434H, Total Bilirubin 0.3 Results/Orders Lab Results Laboratory Tests Test 03/01/18 20:15 03/01/18 20:35 Range/Units Urine Color RED H Urine Clarity BLOODY H Urine pH 8 5-9 Urine Specific [place] 1.010 L 1.016-1.022 Urine Protein 3+ H NEGATIVE Urine Glucose (UA) NEGATIVE NEGATIVE Urine Ketones NEGATIVE NEGATIVE Urine Nitrite NEGATIVE NEGATIVE Urine Bilirubin NEGATIVE NEGATIVE Urine Urobilinogen NORMAL NORMAL MG/DL Urine Leukocyte Esterase 2+ H NEGATIVE Urine RBC (Auto) 5+ H NEGATIVE Urine RBC TNTC H /HPF Urine WBC 2-5 /HPF Urine Crystals NONE /LPF Urine Bacteria NONE /HPF Urine Casts NONE /LPF Urine Mucus NEGATIVE /LPF Urine Culture Indicated NO White Blood Count 12.0 H 4.3-11.0 10^3/uL Red Blood Count 2.93 L 4.35-5.85 10^6/uL Hemoglobin 8.6 L 11.5-16.0 G/DL Hematocrit 27 L 35-52 % Mean Corpuscular Volume 91 80-99 FL Mean Corpuscular Hemoglobin 29 25-34 PG Mean Corpuscular Hemoglobin Concent 32 32-36 G/DL Red Cell Distribution Width 15.8 H 10.0-14.5 % Platelet Count 434 H 130-400 10^3/uL Mean Platelet Volume 8.9 7.4-10.4 FL Neutrophils (%) (Auto) 53 42-75 % Lymphocytes (%) (Auto) 31 12-44 % Monocytes (%) (Auto) 12 0-12 % Eosinophils (%) (Auto) 4 0-10 % Basophils (%) (Auto) 1 0-10 % Neutrophils # (Auto) 6.4 1.8-7.8 X 10^3 Lymphocytes # (Auto) 3.7 1.0-4.0 X 10^3 Monocytes # (Auto) 1.4 H 0.0-1.0 X 10^3 Eosinophils # (Auto) 0.4 H 0.0-0.3 10^3/uL Basophils # (Auto) 0.1 0.0-0.1 10^3/uL Prothrombin Time 20.3 H 12.2-14.7 SEC INR Comment 1.7 H 0.8-1.4 Sodium Level 140 135-145 MMOL/L Potassium Level 3.5 L 3.6-5.0 MMOL/L Chloride Level 97 L 98-107 MMOL/L Carbon Dioxide Level 27 21-32 MMOL/L Anion Gap 16 H 5-14 MMOL/L Blood Urea Nitrogen 59 H 7-18 MG/DL Creatinine 2.27 H 0.60-1.30 MG/DL Estimat Glomerular Filtration Rate 21 BUN/Creatinine Ratio 26 Glucose Level 105 70-105 MG/DL Lactic Acid Level 0.80 0.50-2.00 MMOL/L Calcium Level 9.6 8.5-10.1 MG/DL Total Bilirubin 0.3 0.1-1.0 MG/DL Aspartate Amino Transf (AST/SGOT) 32 5-34 U/L Alanine Aminotransferase (ALT/SGPT) 29 0-55 U/L Alkaline Phosphatase 128 40-136 U/L C-Reactive Protein High Sensitivity 6.80 H 0.00-0.50 MG/DL Total Protein 7.5 6.4-8.2 GM/DL Albumin 3.5 3.2-4.5 GM/DL My Orders Orders - DEANNA REID MD Cbc With Automated Diff (03/01/18 20:28) Comprehensive Metabolic Panel (03/01/18 20:28) Hs C Reactive Protein (03/01/18 20:28) Lactic Acid Analyzer (03/01/18 20:28) Protime With Inr (03/01/18 20:28) Ua Culture If Indicated (03/01/18 20:28) Blood Culture (03/01/18 20:28) Saline Lock/Iv-Start (03/01/18 20:28) Urine Culture (03/01/18 21:37) Ceftriaxone Injection (Rocephin Injectio (03/01/18 21:45) Fluconazole Tablet (Ed Only) (Diflucan T (03/01/18 22:16) Medications Given in ED Current Medications Medications Dose Ordered Sig/Belkis Route Start Time Stop Time Status Last Admin Dose Admin Ceftriaxone Sodium 1000 mg/ Sodium Chloride 50 ml @ 100 mls/hr ONCE ONCE IV 03/01/18 21:45 03/01/18 22:14 DC 03/01/18 21:50 100 MLS/HR Vital Signs/I&O 03/01/18 20:15 Temp 96.6 Pulse 83 Resp 20 B/P (MAP) 140/93 (109) Pulse Ox 98 O2 Delivery Room Air Capillary Refill : Less Than 3 Seconds Blood Pressure Mean: 109 Progress Note : Progress Note Seen and evaluated. We will check labs and UA as well as blood cultures and lactic acid given patient's complicated recent history of infections. Previous history reviewed including culture results. Rocephin 1 g IV given as I do believe that there is indication of urinary tract infection. Given patient's history of automatic sure that she gets good initial dosing. I also noted that the elevated creatinine. We will stop the Lasix for 2 days and then restarted 20 mg daily after discussion with Dr. Lilly. She needs to follow up with Dr. Reddy related to this. I will send a copy of the charts to Dr. Reddy and Dr. Lilly. All of the findings and concerns were discussed with the patient and family who agree. Patient does have some blood at the vaginal introitus which may be coming from the urethra. She does have history of vaginal yeast infection and this may be part of the problem. Diflucan 150 mg by mouth 1 given. Discharged home with return precautions. Patient and family verbalize understanding instructions and agreement with plan. Patient also encouraged to follow up with women's health as needed for vaginal bleeding especially if this continues. She has history with Dr. Rodriguez and states that she will follow-up with her. Departure Impression Primary Impression: UTI (urinary tract infection) Qualified Codes: N30.01 - Acute cystitis with hematuria Additional Impression: Acute renal insufficiency Disposition: HOME, SELF-CARE Condition: Improved Departure-Patient Inst. Decision time for Depature: 22:59 Referrals: SERGEI REDDY MD (PCP/Family) Primary Care Physician Patient Instructions: Acute Kidney Failure (DC), Urinary Tract Infection, Adult (DC) Add. Discharge Instructions: All discharge instructions reviewed with patient and/or family. Voiced understanding. You need to stop your Lasix for 2 days. You may restart it at 20 mg or half a tablet daily thereafter. Follow-up with Dr. Lilly in a few weeks. He should follow up with Dr. Reddy within one week for recheck and further evaluation including referral to nephrology (kidney doctor) as indicated. Return for worse pain, fever, vomiting, weakness, breathing problems or other concerns as needed. Scripts Cephalexin (Cephalexin) 250 Mg Tablet 250 MG PO BID, #12 TAB Prov: DEANNA REID MD 03/01/18 Copy Copies To 1: SERGEI REDDY MD Copies To 2: VIJAY LILLY MD, TIMOTHY D MD Mar 01, 2018 20:33
[2018-03-01 20:47] LABS: BASOPHILS # (AUTO) 0.1 10^3/uL (0.0-0.1); BASOPHILS % (AUTO) 1 % (0-10); EOSINOPHILS # (AUTO) 0.4 10^3/uL (0.0-0.3); EOSINOPHILS % (AUTO) 4 % (0-10); HEMATOCRIT 27 % (35-52); HEMOGLOBIN 8.6 G/DL (11.5-16.0); LYMPHOCYTES # (AUTO) 3.7 X 10^3 (1.0-4.0); LYMPHOCYTES % (AUTO) 31 % (12-44); MEAN CORPUSCULAR HEMOGLOBIN 29 PG (25-34); MEAN CORPUSCULAR HGB CONC 32 G/DL (32-36); MEAN CORPUSCULAR VOLUME 91 FL (80-99); MEAN PLATELET VOLUME 8.9 FL (7.4-10.4); MONOCYTES # (AUTO) 1.4 X 10^3 (0.0-1.0); MONOCYTES % (AUTO) 12 % (0-12); NEUTROPHILS # (AUTO) 6.4 X 10^3 (1.8-7.8); NEUTROPHILS % (AUTO) 53 % (42-75); PLATELET COUNT 434 10^3/uL (130-400); RED BLOOD COUNT 2.93 10^6/uL (4.35-5.85); RED CELL DISTRIBUTION WIDTH 15.8 % (10.0-14.5)
[2018-03-01 20:58] LABS: INR 1.7 (0.8-1.4); PROTHROMBIN TIME PATIENT 20.3 SEC (12.2-14.7)
[2018-03-01 21:08] LABS: ALBUMIN 3.5 GM/DL (3.2-4.5); BILIRUBIN,TOTAL 0.3 MG/DL (0.1-1.0); CALCIUM 9.6 MG/DL (8.5-10.1); CREATININE SERUM 2.27 MG/DL (0.60-1.30); POTASSIUM 3.5 MMOL/L (3.6-5.0); TOTAL PROTEIN 7.5 GM/DL (6.4-8.2)
[2018-03-01 21:08] LABS: BILIRUBIN,URINE NEGATIVE (NEGATIVE); CLARITY,URINE BLOODY; COLOR,URINE RED; GLUCOSE, URINE (UA) NEGATIVE (NEGATIVE); KETONES,URINE NEGATIVE (NEGATIVE); LEUKOCYTE ESTERASE ,URINE 2+ (NEGATIVE); NITRITE,URINE NEGATIVE (NEGATIVE); PH,URINE 8 (5-9); PROTEIN,URINE 3+ (NEGATIVE); UROBILINOGEN,URINE NORMAL (NORMAL)
[2018-03-01 21:09] LABS: RBC,URINE TNTC /HPF
[2018-03-01] MEDS ORDERED: cefTRIAXone INJECTION 1,000 MG in NS (IVPB) 50 ML IV ONE (21:45)
[2018-03-01] MEDS ORDERED: FLUCONAZOLE 150 MG TABLET (ED ONLY) PO STA (22:16)
[2018-03-01] MEDS ORDERED: CEPH250T PO (23:01)
[2018-03-01 23:21] VITALS: BP 140/93
== END 2018-03-01 23:21 | disposition home or self-care (01) ==
LOC: EDUNIT# 19:22 → ER 19:24
DX: N39.0 Urinary tract infection, site not specified (principal); N28.9 Disorder of kidney and ureter, unspecified; I48.91 Unspecified atrial fibrillation; I10 Essential (primary) hypertension; K21.9 Gastro-esophageal reflux disease without esophagitis; F41.9 Anxiety disorder, unspecified; Z90.49 Acquired absence of other specified parts of digestive tract; Z90.710 Acquired absence of both cervix and uterus; Z90.89 Acquired absence of other organs; Z87.01 Personal history of pneumonia (recurrent); Z88.1 Allergy status to other antibiotic agents; Z88.8 Allergy status to other drugs, medicaments and biological substances
CPT/HCPCS: 36415; 80053; 81000; 83605; 85025; 85610; 86141; 87040; 87088; 96365

== ENCOUNTER → 2018-03-20 | Outpatient (CLI) | payer MEDICARE, OTHER ==
[~2018-03-20] MED LIST changes: +CEPH250T PO
--- NOTE | 2018-03-20 14:29 | Diagnostic Imaging Report ---
PROCEDURE: CT abdomen and pelvis without contrast. TECHNIQUE: Multiple contiguous axial images were obtained through the abdomen and pelvis without the use of intravenous contrast. INDICATION: Gross hematuria. COMPARISON: Comparison is made with prior CT from 07/03/2016. FINDINGS: The heart is enlarged. The lung bases are clear. There appears to be a small right pleural effusion. Tiny low-density left lobe of the liver is stable and mostly suggestive of a cyst. No other liver mass is identified. The gallbladder is unremarkable. The pancreas and spleen are unremarkable. No adrenal mass is identified. No renal calculi are detected. There appears to be a punctate calculus in the mid left ureter approximately 1-2 mm in size, seen on image 37 series 4. Slight prominence of the left renal collecting system is seen. No other suspicious calculi are identified. The bladder is unremarkable. Small and large bowel loops are normal caliber. No obstruction is seen. There is no ascites. There is moderate uncomplicated diverticulosis seen. Bony structures appear nonacute. IMPRESSION: 1. Cardiomegaly and trace right pleural effusion. 2. Tiny left mid ureteric calculus with mild hydronephrosis. No other urinary tract calculi are detected. 3. Uncomplicated diverticulosis. Dictated by: Dictated on workstation # [id number]
== END ==
LOC: RAD 13:12
PROVIDERS: ATTEND Urology
DX: N13.2 Hydronephrosis with renal and ureteral calculous obstruction (principal); K57.90 Diverticulosis of intestine, part unspecified, without perforation or abscess without bleeding; I51.7 Cardiomegaly
CPT/HCPCS: 74176

== ENCOUNTER 2018-04-10 09:45 | Outpatient (CLI) | payer MEDICARE, OTHER ==
[~2018-04-10] VITALS: Ht 160 cm; Wt 54.4 kg
[2018-04-10] MEDS ORDERED: WARF-47 PO (14:47)
[2018-04-10] MEDS ORDERED: POTA20TA15 PO (14:47)
== END 2018-04-10 14:58 ==
LOC: PREOP 09:45
PROVIDERS: ATTEND Urology
DX: Z01.818 Encounter for other preprocedural examination (principal); N20.1 Calculus of ureter; D49.4 Neoplasm of unspecified behavior of bladder; N36.9 Urethral disorder, unspecified

== ENCOUNTER 2018-04-15 07:06 | Day surgery (SDC) | payer MEDICARE, OTHER ==
[~2018-04-15] VITALS: Ht 160 cm; Wt 54.4 kg
[~2018-04-15 07:06] MED LIST changes: +POTA20TA15 PO
--- OUTSIDE RECORDS SUMMARY | 2018-04-15 07:10 | XMS REPORT | Clinical Summary ---
Author Author [facility] Organization [facility] Address Unknown Phone Unavailable Care Team Providers Care Marine Habitat Resource Specialist Name Role Phone ChristineTea harding DO Unavailable Unavailable João Ruiz APRN Unavailable Source Comments Some departments are not documenting in the electronic medical record. If you do not see the information that you expected, contact Release of Information in the Health Information Management department at [phone] for further assistance in locating additional records.[facility] Allergies Active Allergy Reactions Severity [...] PERTUSSIS VACCINE 1946 TETANUS VACCINE 1952 SHINGLES RECOMBINANT 1985 VACCINE (1 of 2) OSTEOPOROSIS SCREENING 2000 PNEUMONIA (PCV13/PPSV23) 2000 VACCINES (1 of 2 - PCV13) INFLUENZA VACCINE 2018 Results Not on filefrom Last 3 Months
[2018-04-15 07:15] VITALS: BP 123/80
[2018-04-15] MEDS ORDERED: LACTATED RINGERS 1,000 ML IV PRN (07:17)
[2018-04-15] MEDS ORDERED: cefTRIAXone INJECTION 1,000 MG in NS (IVPB) 50 ML IV ONE (07:30)
[2018-04-15] MEDS ORDERED: CATHETER FLUSH 10 ML SYR IV PRN (07:30)
[2018-04-15] MEDS ORDERED: ONDANSETRON 4 MG/2 ML (SDV) Z0FRAN IV ONE (07:38)
[2018-04-15] MEDS ORDERED: DEXAMETHASONE 10 MG/ML (DECADRON) 1 ML VIAL IV ONE (07:38)
[2018-04-15] MEDS ORDERED: ROCURONIUM 10 MG/ML 5 ML SYRINGE IV ONE (07:38)
[2018-04-15] MEDS ORDERED: fentaNYL INJECTION 100 MCG/2 ML AMP INJ ONE (07:38)
[2018-04-15] MEDS ORDERED: proPOfol 200 MG/20 ML (DIPRIVAN) VIAL IV ONE (07:38)
[2018-04-15] MEDS ORDERED: SEVOFLURANE (ULTANE) 15 ML INHAL SOLN INH ONE (07:38)
[2018-04-15] MEDS ORDERED: LIDOCAINE PF 2% 5 ML (XYLOCAINE) VIAL INJ ONE (07:38)
--- NOTE | 2018-04-15 07:39 | Progress Note-Pre Operative ---
Pre-Operative Progress Note H&P Reviewed The H&P was reviewed, patient examined and no changes noted. Date Seen by Provider: Apr 15, 2018 Time Seen by Provider: 07:38 Date H&P Reviewed: Apr 15, 2018 Time H&P Reviewed: 07:38 Pre-Operative Diagnosis: POSSIBLE LT URETERAL STONE, SMALL BLADDER TUMOR AND URETHRAL LESION TELLY SEGOVIA MD Apr 15, 2018 7:39 am
--- NOTE | 2018-04-15 07:46 | Diagnostic Imaging Report ---
INDICATION: Preop left ureteral stone COMPARISON STUDY: KUB from March 26. FINDINGS: Supine view of the abdomen demonstrates a spinal cord stimulator remaining in place. Constipation is present. No ureteral calculi are identified. IMPRESSION: No renal or ureteral calculi are identified. Dictated by: Dictated on workstation # [id number]
[2018-04-15 09:09] LABS: INR 1.2 (0.8-1.4); PROTHROMBIN TIME PATIENT 15.4 SEC (12.2-14.7)
[2018-04-15] MEDS ORDERED: GLYCOPYRROLATE 0.2 MG/ML (ROBINUL) 2 ML VIAL IV ONE (09:37)
[2018-04-15] MEDS ORDERED: NEOSTIGMINE 1 MG/ML 5 ML SYRINGE IV ONE (09:37)
--- NOTE | 2018-04-15 09:48 | Progress Note-Post Operative ---
Post-Operative Progess Note Surgeon (s)/Licensed Retail Supervisor (s) Surgeon TELLY SEGOVIA MD Licensed Retail Supervisor: N/A Pre-Operative Diagnosis POSSIBLE LT URETERAL STONE, SMALL BLADDER TUMOR AND URETHRAL LESION Post-Operative Diagnosis SAME Procedure & Operative Findings Date of Procedure 04/15/18 Procedure Performed/Findings LT URETEROSCOPY, RETROGRADE UROGRAM, TURBT, AND EXCISION OF URETHRAL LESION Anesthesia Type GENERAL Estimated Blood Loss Estimated blood loss (mL): NEGLIGIBLE Specimens/Packing Specimens Removed 1. BLADDER TUMOR AND BASE 2. URETHRAL LESION [employer] GAUZE TELLY SEGOVIA MD Apr 15, 2018 9:48 am
--- NOTE | 2018-04-15 09:52 | Discharge Inst-Urology ---
Discharge Inst-Urology Discharge Medications New, Converted, or Re-newed RX: RX on Chart Patient Instructions/Follow Up Plan Please make appointment to been seen in office in 2 weeks. Discharge with chen with leg bag day time and large bag night time with instructions Come to office nest Sunday 04/22 9am to DC Chen Tomorrow may start showers, no bath In 72 hours, if no bleeding, may resume coumadin Increase oral fluids for 48 hours and then as needed. Diet and Activity as tolerated. If questions or concerns contact your physician Or seek help at emergency department. TELLY SEGOVIA MD Apr 15, 2018 9:52 am
[2018-04-15] MEDS ORDERED: ONDANSETRON 4 MG/2 ML (SDV) Z0FRAN IVP PRN (10:15)
[2018-04-15] MEDS ORDERED: NITR-65 PO (10:37)
[2018-04-15] MEDS ORDERED: PHEN-640 PO (10:37)
[2018-04-15] MEDS ORDERED: HYDR-3870 PO (10:37)
--- NOTE | 2018-04-15 15:16 | OPERATIVE REPORT ---
DATE OF SERVICE: 04/15/2018 PREOPERATIVE DIAGNOSES: 1. Possible left distal ureteral stone. 2. Small bladder tumor. 3. Urethral lesion. POSTOPERATIVE DIAGNOSES: 1. Possible left distal ureteral stone. 2. Small bladder tumor. 3. Urethral lesion. OPERATIONS PERFORMED: Left ureteroscopy with retrograde urogram, transurethral resection of bladder tumor and excision of urethral lesion. SURGEON: Fernandez Segovia MD. ANESTHESIA: General. COMPLICATIONS: None. DESCRIPTION OF PROCEDURE: Under satisfactory general anesthesia, the patient in lithotomy position, genitalia were prepped and draped in the usual sterile fashion. Cystoscopy was performed and the left ureteral orifice and intramural portion was dilated to accommodate a 6.9 Tunisian semirigid ureteroscope. The ureteroscope passed easily all the way up to the mid ureter. There were no stones. I injected contrast to confirm no filling defect and no obstruction and good emptying of the contrast on withdrawing the ureteroscope. Then, I removed the ureteroscope. I inserted a resectoscope and resected the small bladder tumor completely including the base. There was no bleeding after cauterizing couple of bleeders. Hemostasis was complete and good efflux from the left ureteral orifice. The resectoscope was removed. A 16-Goodwin catheter was inserted and then the urethral lesion was completely excised. The edges of the mucosa were approximated with interrupted 4-0 chromic catgut. Excision was complete, and hemostasis was satisfactory. Urine was clear. Estimated blood loss was negligible. The patient tolerated the procedure and anesthesia well and was sent to recovery room in stable condition. Job ID: [id number] DocumentID: [id number] Dictated Date: 04/15/2018 09:54:51 Freelance Photographer Date: 04/15/2018 15:15:07 Dictated By: FERNANDEZ SEGOVIA MD
[2018-04-15] MEDS ORDERED: HYDROcodone/APAP 5 MG/325 MG (LORTAB) TAB PO PRN (15:30)
[2018-04-15 15:45] VITALS: BP 127/80
[2018-04-15] MEDS: PHENAZOPYRIDINE 100 MG (PYRIDIUM) TABLET PO PRN ×2 (16:17→22:46)
[2018-04-15] MEDS ORDERED: METHADONE 10 MG (DOLOPHINE) TAB PO PRN (19:18)
[2018-04-15 20:05] VITALS: BP 155/80
[2018-04-15] MEDS: GABAPENTIN 100 MG (NEURONTIN) CAP PO SCH (20:11)
[2018-04-15] MEDS: NITROFURANTOIN 100 MG (MACROBID) CAPSULE PO SCH (20:11)
[2018-04-15] MEDS ORDERED: ESTRADIOL VAGINAL CREAM 42.5 GM (ESTRACE) VG SCH (21:00)
[2018-04-15] MEDS ORDERED: DILTIAZEM 120 MG (CARDIZEM CD) CAP PO SCH (21:00)
[2018-04-15] MEDS ORDERED: TEMAZEPAM 15 MG (RESTORIL) CAP PO SCH (21:00)
[2018-04-16 00:32] VITALS: BP 122/69
[2018-04-16 04:00] VITALS: BP 110/70
[2018-04-16] MEDS ORDERED: OMEGA 3 (FISH OIL) 1000 MG CAP PO SCH (07:00)
[2018-04-16] MEDS ORDERED: FUROSEMIDE 40 MG (LASIX) TAB PO SCH (07:00)
[2018-04-16] MEDS ORDERED: MULTIVIT W/MINERALS TAB (THERAGRAN M) PO SCH (07:00)
--- NOTE | 2018-04-16 07:58 | Anesthesia-General Post-Op ---
General Patient Condition Mental Status/LOC: Same as Preop Cardiovascular: Satisfactory Nausea/Vomiting: Absent Respiratory: Satisfactory Pain: Controlled Complications: Absent Post Op Complications Complications None Follow Up Care/Instructions Patient Instructions None needed. Anesthesia/Patient Condition Patient Condition Patient is doing well, no complaints, stable vital signs, no apparent adverse anesthesia problems. No complications reported per nursing. JESÚS STEWART CRNA Apr 16, 2018 07:58
[2018-04-16] MEDS ORDERED: MAGNESIUM OXIDE (MAG-OX)400 MG TAB PO SCH (08:00)
[2018-04-16 08:32] VITALS: BP 131/65
[2018-04-16] MEDS: GABAPENTIN 100 MG (NEURONTIN) CAP PO SCH (08:32)
[2018-04-16] MEDS: NITROFURANTOIN 100 MG (MACROBID) CAPSULE PO SCH (08:32)
[2018-04-16] MEDS ORDERED: VITAMIN D3 1,000 UNITS (CHOLECALCIFEROL) TABLET PO SCH (09:00)
[2018-04-16] MEDS ORDERED: KCL 20 MEQ TAB (K-DUR) PO SCH (09:00)
[2018-04-16] MEDS ORDERED: FLUTICASONE NASAL SPRAY (FLONASE) 16 GM BTL NS PRN (09:00)
[2018-04-16] MEDS ORDERED: CALCIUM CARBONATE 500 MG (TUMS) TAB.CHEW PO SCH (09:00)
[2018-04-16] MEDS ORDERED: LACTOBACILLUS Acidoph/Bulgar (LACTINEX/FLORANEX) TAB PO SCH (09:00)
--- NOTE | 2018-04-16 10:07 | Progress Note-Urology ---
Progress Note-Urology Progress Notes/Assess & Plan Progress/Assessment & Plan RECOVERED VERY WELL. NO BLEEDING. HOME Final Diagnosis LT URETERAL STONE, BLADDER TUMOR, AND URETHRAL LESION TELLY SEGOVIA MD Apr 16, 2018 10:07 am
--- NOTE | 2018-04-16 11:17 | Progress Note-Urology ---
Progress Note-Urology Progress Notes/Assess & Plan Progress/Assessment & Plan RECOVERED WELL. VOIDING WELL. FEELS EMPTY. DRY. HAPPY. PLAN CHECK POSTVOID RESIDUAL TO DECIDE ON DISCHARGE PLANS. DISCHARGE INSTRUCTIONS GIVEN Final Diagnosis MIXED INCONTINENCE WITH CYSTOCELE, OAB AND ISD TELLY SEGOVIA MD Apr 16, 2018 11:16 am
[2018-04-16] MEDS ORDERED: CALCIUM CARB + VIT D 600 MG (CALCARB + D) TAB PO SCH (13:00)
== END 2018-04-16 10:30 | disposition home or self-care (01) ==
LOC: SDC 07:06 → 4TH 11:25 → SDC 04-16 10:30
PROVIDERS: ATTEND Urology
DX: C67.9 Malignant neoplasm of bladder, unspecified (principal); N39.46 Mixed incontinence; N32.81 Overactive bladder; N36.42 Intrinsic sphincter deficiency (ISD); N81.10 Cystocele, unspecified; N36.2 Urethral caruncle; I10 Essential (primary) hypertension; I48.91 Unspecified atrial fibrillation; I27.20 Pulmonary hypertension, unspecified; I08.0 Rheumatic disorders of both mitral and aortic valves; Z79.01 Long term (current) use of anticoagulants; Z79.899 Other long term (current) drug therapy
CPT/HCPCS: 36415; 74018; 85610; 87081

== ENCOUNTER → 2018-04-21 | Outpatient (CLI) | payer MEDICARE, OTHER ==
[~2018-04-21] MED LIST changes: +HYDR-3870 PO; +PHEN-640 PO
--- NOTE | 2018-04-21 13:20 | Diagnostic Imaging Report ---
PROCEDURE: US Renal Bilateral. TECHNIQUE: Multiple real-time grayscale images were obtained over the kidneys in various projections bilaterally. INDICATION: Hematuria and chronic kidney disease. FINDINGS: Right kidney measures 8 x 3.5 x 4.2 cm. Left kidney measures 8.9 x 3.3 x 4.3 cm. Both kidneys demonstrate normal renal cortical thickness and echogenicity. There is no hydronephrosis, calculi or mass. Bladder and IVC are not imaged. IMPRESSION: Unremarkable sonographic appearance of both kidneys. Dictated by: Dictated on workstation # [id number]
== END ==
LOC: CARD 11:57
PROVIDERS: ATTEND Internal Medicine Nephrology
DX: N18.4 Chronic kidney disease, stage 4 (severe) (principal); R60.0 Localized edema; D64.9 Anemia, unspecified; R31.9 Hematuria, unspecified
CPT/HCPCS: 76770; 93306

== ENCOUNTER → 2019-05-18 | Outpatient (CLI) | payer MEDICARE, OTHER ==
--- NOTE | 2019-05-18 16:11 | Diagnostic Imaging Report ---
INDICATION: Left-sided chest wall pain. EXAMINATION: PA and lateral chest. FINDINGS: The patient has a dorsal column stimulator with leads projecting over T11. The heart is moderately enlarged. The pulmonary vascularity is normal. The lungs are clear. There are no effusions or pneumothoraces. IMPRESSION: Mild cardiomegaly without evidence of pulmonary venous hypertension. Dictated by: Dictated on workstation # [id number]
== END ==
LOC: RAD 15:21
PROVIDERS: ATTEND Family Medicine
DX: I51.7 Cardiomegaly (principal); R07.89 Other chest pain
CPT/HCPCS: 71046

== ENCOUNTER → 2019-07-23 | Outpatient (CLI) | payer MEDICARE, OTHER | LOC: CARD 10:48 | PROVIDERS: ATTEND Internal Medicine Cardiovascular Disease | DX: I08.3 Combined rheumatic disorders of mitral, aortic and tricuspid valves (principal); I48.0 Paroxysmal atrial fibrillation; E78.5 Hyperlipidemia, unspecified; I10 Essential (primary) hypertension; I25.10 Atherosclerotic heart disease of native coronary artery without angina pectoris | CPT/HCPCS: 93306 ==

== ENCOUNTER → 2020-02-12 | Outpatient (CLI) | payer MEDICARE, OTHER ==
[~2020-02-12] MED LIST changes: +ACHD5005 PO; -HYDR-3812 PO; -IBUP-2055 PO; +IBUP-2473 PO; -RANI-515 PO; +RANI-609 PO
--- NOTE | 2020-02-12 18:39 | Diagnostic Imaging Report ---
INDICATION: Left breast pain laterally. No prior mammograms are available for comparison. 2-D and 3-D bilateral diagnostic mammography was performed with CAD. The current study was also evaluated with a Computer Aided Detection (CAD) system. Both breasts are heterogeneously dense, limiting the sensitivity of mammography. No mass or malignant appearing microcalcifications are seen. Axillae are unremarkable. IMPRESSION: No mammographic features suspicious for malignancy are identified. Even so, directed sonographic interrogation of the area of pain in the lateral left breast is recommended and will be performed today. ACR BI-RADS Category 0 : Needs additional imaging Result letter will be mailed to the patient. Note: At least 10% of breast cancer is not imaged by mammography. Dictated by: Dictated on workstation # [id number]
--- NOTE | 2020-02-12 18:41 | Diagnostic Imaging Report ---
INDICATION: Pain in the lateral left breast. COMPARISON: Correlation is made with diagnostic mammogram earlier the same day. EXAMINATION: Sonographic interrogation of the area of pain from the 2-4 o'clock location of left breast was performed. FINDINGS: No sonographic abnormality is seen. No solid or cystic mass is identified. There is some mild ductal ectasia in the retroareolar aspect of the left breast. IMPRESSION: No suspicious sonographic abnormality is detected. ACR BI-RADS Category 2: Benign findings. Result letter will be mailed to the patient. Note: At least 10% of breast cancer is not imaged by mammography. Dictated by: Dictated on workstation # [id number]
== END ==
LOC: RAD 13:21
PROVIDERS: ATTEND Nurse Practitioner Family
DX: N64.4 Mastodynia (principal)
CPT/HCPCS: 76642; 77062; 77066

== ENCOUNTER → 2020-05-18 | Outpatient (CLI) | payer MEDICARE, OTHER | LOC: LABNPT 15:12 | PROVIDERS: ATTEND Family Medicine | DX: Z53.9 Procedure and treatment not carried out, unspecified reason (principal) ==

== ENCOUNTER 2020-07-11 00:10 | Emergency (ER) | payer MEDICARE, OTHER ==
[~2020-07-11] VITALS: Ht 160 cm; Wt 55.9 kg
[2020-07-11 00:45] LABS: HEMATOCRIT 39 % (35-52); HEMOGLOBIN 12.6 g/dL (11.5-16.0); WHITE BLOOD COUNT 5.2 10^3/uL (4.3-11.0)
[2020-07-11 00:46] LABS: BASOPHILS % (AUTO) 1 % (0-10); EOSINOPHILS # (AUTO) 0.2 10^3/uL (0.0-0.3); EOSINOPHILS % (AUTO) 4 % (0-10); LYMPHOCYTES # (AUTO) 2.1 10^3/uL (1.0-4.0); LYMPHOCYTES % (AUTO) 42 % (12-44); MEAN CORPUSCULAR HEMOGLOBIN 33 pg (25-34); MEAN CORPUSCULAR HGB CONC 32 g/dL (32-36); MEAN CORPUSCULAR VOLUME 102 fL (80-99); MEAN PLATELET VOLUME 9.5 fL (9.0-12.2); MONOCYTES # (AUTO) 0.7 10^3/uL (0.0-1.0); MONOCYTES % (AUTO) 13 % (0-12); NEUTROPHILS # (AUTO) 2.1 10^3/uL (1.8-7.8); NEUTROPHILS % (AUTO) 40 % (42-75); PLATELET COUNT 192 10^3/uL (130-400)
[2020-07-11 00:54] LABS: BILIRUBIN,URINE NEGATIVE (NEGATIVE); CLARITY,URINE CLEAR; COLOR,URINE YELLOW; GLUCOSE, URINE (UA) NEGATIVE (NEGATIVE); KETONES,URINE NEGATIVE (NEGATIVE); LEUKOCYTE ESTERASE ,URINE NEGATIVE (NEGATIVE); NITRITE,URINE NEGATIVE (NEGATIVE); PROTEIN,URINE NEGATIVE (NEGATIVE)
[2020-07-11 01:00] LABS: POTASSIUM 3.7 MMOL/L (3.6-5.0)
[2020-07-11 01:01] LABS: CALCIUM 9.5 MG/DL (8.5-10.1)
[2020-07-11 01:02] LABS: INR 2.1 (0.8-1.4); PROTHROMBIN TIME PATIENT 23.7 SEC (12.2-14.7); TOTAL PROTEIN 6.6 GM/DL (6.4-8.2)
[2020-07-11 01:04] LABS: BILIRUBIN,TOTAL 0.5 MG/DL (0.1-1.0)
[2020-07-11 01:06] LABS: CREATININE SERUM 1.21 MG/DL (0.60-1.30)
[2020-07-11 01:07] LABS: BACTERIA,URINE NEGATIVE /HPF; RBC,URINE 25-50 /HPF; SQUAMOUS EPITHELIAL CELL,UR 0-2 /HPF; WBC,URINE 0-2 /HPF
[2020-07-11] MEDS ORDERED: HUMAN PROTHROMBIN COMPLX(PCC) 500 UNIT (KCENTRA) IV ONE (01:45)
--- NOTE | 2020-07-11 01:55 | ED Neurological Problem ---
General Chief Complaint: Trauma-Non Activation Stated Complaint: HEADACHE, LIGHTHEADEDNESS Nursing Triage Note: PT ARRIVED BY [facility] WITH CHIEF COMPLAINT OF HEADACHE. AROUND THE BEGINNING OF , PATIENT HIT HER HEAD ON THE BATHROOM DRAWER WHEN SHE WAS USING THE TOILET. PT HAD SEVERE BRUISING TO HER FACE BILATERAL. PT STATED SHE DID NOT COME IN DUE TO FEAR OF GETTING COVID. PT STATED SHE STARTED TO GET A HEADACHE POSTERIOR. PT STATED SHE TOOK A "SLEEPING PILL" THIS EVENING. EMS STATED THEY ATTEMPTED AN IV AND SHE HAS HISTORY OF A-FIB AND SHE IS IN AND OUT OF A-FIB WITH RVR. ON ARRIVAL, VITALS WERE DONE, PT WAS HOOKED UP TO THE MONITOR, EKG WAS DONE, IV WAS STARTED (22 GAUGE IN LEFT FOREARM), AND PT NEEDED TO URINATE, SO A STRAIGHT CATH WAS DONE. ON ARRIVAL A RIGID C-COLLAR WAS APPLIED SINCE PT COMPLAINED OF HEAD AND NECK PAIN. PT KNEW HER NAME, , MONTH, DATE, MONTH, AND PRESIDENT. THE ONLY THING THAT WAS INCORRECT WAS THE DAY OF THE WEEK. SHE STATED IT WAS SATURDAY AND IT IS SATURDAY/SATURDAY MORNING. Nursing Sepsis Screen: No Definite Risk Source: patient, EMS Exam Limitations: no limitations History of Present Illness Date Seen by Provider: Jul 11, 2020 Time Seen by Provider: 00:20 Initial Comments This 85-year-old woman presents to the emergency room with sudden onset of acute headache this evening. She had a trauma to the head about 6 weeks ago in which she hit her head on a cabinet. She developed severe facial bruising at that time but did not seek any care. She has very minimal remnant facial bruising at this time. She did not have significant pain related to that trauma but tonight developed severe pain spontaneously. She denies any new trauma since the beginning of May. She does take warfarin due to atrial fibrillation. She is alert and oriented but sleepy at this time. She already took her sleeping pill this evening. She has no focal neurologic deficits at this time. Location Injury Occurred: POSTERIOR HEAD Allergies and Home Medications Allergies Coded Allergies: dronedarone (Verified Allergy, Unknown, 04/10/18) hydrochlorothiazide (Verified Allergy, Unknown, 04/10/18) metoprolol (Unverified Allergy, Unknown, 04/10/18) Tetracyclines (Verified Adverse Reaction, Intermediate, SEVERE HEARTBURN, 04/10/18) Severe Heartburn amiodarone (Verified Adverse Reaction, Intermediate, MADE HER COLD, 03/30 11/17) clindamycin (Verified Adverse Reaction, Mild, HEARTBURN, 04/10/18) Home Medications Calcium Carbonate 500 Mg Tab.chew, 500 MG PO DAILY, (Reported) Calcium Citrate/Vitamin D3 1 Each Tablet, 1 TAB PO 1300, (Reported) Cholecalciferol (Vitamin D3) 2,000 Unit Capsule, 2,000 UNIT PO DAILY, (Reported) Diltiazem HCl 120 Mg Tab.er.24h, 120 MG PO HS, (Reported) Estradiol 42.5 Gm Cream.appl, TP HS, (Reported) Fish Oil/Dha/Epa 1 Each Capsule, 1,200 MG PO TID, (Reported) Fluticasone Propionate 9.9 Ml Martin.susp, 1 SPRAY NS DAILY PRN for ALLERGIES, (Reported) Furosemide 40 Mg Tablet, 40 MG PO BID, (Reported) Gabapentin 100 Mg Capsule, 100 MG PO TID, (Reported) Hydrocodone/Acetaminophen 1 Each Tablet, 1-2 EACH PO Q4H PRN for PAIN Prescribed by: JOSSELYN RUIZ on 04/15/18 1037 Lactobacillus Combination No.4 1 Each Capsule, 1 CAP PO DAILY, (Reported) Magnesium Oxide 250 Mg Tablet, 250 MG PO DAILY, (Reported) Methadone HCl 10 Mg Tablet, 5 MG PO DAILY PRN for FOOT PAIN, (Reported) TAKES 1/2 (10MG) TABLET Multivits-Min/Iron/FA/Lutein 1 Each Tablet, 1 TAB PO DAILY, (Reported) Nitrofurantoin Monohyd/M-Cryst 100 Mg Capsule, 1 TAB PO BID WITH MEALS Prescribed by: JOSSELYN RUIZ on 04/15/18 1037 Phenazopyridine HCl 200 Mg Tablet, 1 TAB PO TID PRN for SPASMS Prescribed by: JOSSELYN RUIZ on 04/15/18 1037 Potassium Chloride 20 Meq Tab.er.prt, 20 MEQ PO DAILY, (Reported) Sodium Fluoride 51 Gm Cream..g., DT HS, (Reported) Triazolam 0.25 Mg Tablet, 0.25 MG PO HS, (Reported) Patient Home Medication List Home Medication List Reviewed: Yes Review of Systems Review of Systems Constitutional: no symptoms reported Eyes: No Symptoms Reported Ears, Nose, Mouth, Throat: no symptoms reported Respiratory: no symptoms reported Cardiovascular: no symptoms reported Gastrointestinal: no symptoms reported Genitourinary: no symptoms reported Musculoskeletal: see HPI Skin: see HPI Psychiatric/Neurological: See HPI Endocrine: No Symptoms Reported Hematologic/Lymphatic: No Symptoms Reported Past Awmhnqd-Ivftxi-Veeupe Hx Past Med/Social Hx: Reviewed Nursing Past Med/Soc Hx Patient Social History Alcohol Use: Rarely Uses Number of Drinks Today: II Alcohol Beverage of Choice: Wine, Other Recreational Drug Use: No Smoking Status: Never a Smoker 2nd Hand Smoke Exposure: No Recent Foreign Travel: No Contact w/Someone Who Travel: No Recent Infectious Disease Expo: No Recent Hopitalizations: No Physical Abuse: No Sexual Abuse: No Mistreated: No Fear: No Immunizations Up To Date Tetanus Booster (TDap): Unknown PED Vaccines UTD: Yes Date of Pneumonia Vaccine: Jun 30, 2017 Date of Influenza Vaccine: Oct 17, 2017 Seasonal Allergies Seasonal Allergies: Yes Past Medical History Surgeries: Yes ( "STIMULATOR" IN BACK, RIGHT ANKLE SURGERY) Appendectomy, Hysterectomy, Neurological, Orthopedic, Tonsillectomy Respiratory: Yes (WHOOPING COUGH AT AGE 6YRS.; PULMONARY HTN, left pleural effusion) Pneumonia Currently Using CPAP: No Currently Using BIPAP: No Cardiac: Yes (MITRAL AND AORTIC VALVE DISEASE; MILD CAROTID DISEASE) Atrial Fibrillation, Hypertension, Valvular Heart Disease Neurological: Yes ("NEUROPATHY ALL OVER"; RSD) Neuropathy 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 HIV/AIDS: No Genitourinary: Yes UTI-Chronic Gastrointestinal: Yes Gastroesophageal Reflux Musculoskeletal: Yes (CHRONIC NECK PAIN, LUMBAR RADICULOPATHY; KYPHOSIS) Osteoporosis, Arthritis, Chronic Back Pain Endocrine: No HEENT: No Loss of Vision: Bilateral Cancer: No Psychosocial: Yes Sleep Difficulties, Anxiety Integumentary: Yes (dog bit nasal tip) Blood Disorders: No Adverse Reaction/Blood Tranf: No (N/A) Family Medical History COPD Physical Exam Vital Signs Vital Signs - First Documented 07/11/20 00:30 Temp 36.3 Pulse 75 Resp 17 B/P (MAP) 173/104 (127) Pulse Ox 92 O2 Delivery Nasal Cannula O2 Flow Rate 0.50 Capillary Refill : Less Than 3 Seconds Height, Weight, BMI Height: 5'3.00" Weight: 120lbs. 0.0oz. 54.622834ms; 21.00 BMI Method:Stated General Appearance: WD/WN, no apparent distress HEENT: PERRL/EOMI, normal ENT inspection, other (no dental injury) Neck: non-tender, normal inspection Respiratory: lungs clear, normal breath sounds, no respiratory distress Cardiovascular: no edema, no murmur, irregularly irregular Gastrointestinal: non tender, soft Extremities: normal inspection, pedal edema Neurologic/Psychiatric: wire bender II-XII nml as tested, no motor/sensory deficits, alert, normal mood/affect, oriented x 3, other (drowsy but alert and oriented) Crainal Nerves: normal hearing, normal speech, PERRL Motor/Sensory: no motor deficit, no sensory deficit Skin: normal color, warm/dry, ecchymosis (minimal remnant ecchymosis on the face) Progress/Results/Core Measures Results/Orders Lab Results Laboratory Tests Test 07/11/20 00:35 07/11/20 00:40 Range/Units White Blood Count 5.2 4.3-11.0 10^3/uL Red Blood Count 3.82 3.80-5.11 10^6/uL Hemoglobin 12.6 11.5-16.0 g/dL Hematocrit 39 35-52 % Mean Corpuscular Volume 102 H 80-99 fL Mean Corpuscular Hemoglobin 33 25-34 pg Mean Corpuscular Hemoglobin Concent 32 32-36 g/dL Red Cell Distribution Width 13.7 10.0-14.5 % Platelet Count 192 130-400 10^3/uL Mean Platelet Volume 9.5 9.0-12.2 fL Immature Granulocyte % (Auto) 0 % Neutrophils (%) (Auto) 40 L 42-75 % Lymphocytes (%) (Auto) 42 12-44 % Monocytes (%) (Auto) 13 H 0-12 % Eosinophils (%) (Auto) 4 0-10 % Basophils (%) (Auto) 1 0-10 % Neutrophils # (Auto) 2.1 1.8-7.8 10^3/uL Lymphocytes # (Auto) 2.1 1.0-4.0 10^3/uL Monocytes # (Auto) 0.7 0.0-1.0 10^3/uL Eosinophils # (Auto) 0.2 0.0-0.3 10^3/uL Basophils # (Auto) 0.0 0.0-0.1 10^3/uL Immature Granulocyte # (Auto) 0.0 0.0-0.1 10^3/uL Prothrombin Time 23.7 H 12.2-14.7 SEC INR Comment 2.1 H 0.8-1.4 Activated Partial Thromboplast Time 34 24-35 SEC Sodium Level 142 135-145 MMOL/L Potassium Level 3.7 3.6-5.0 MMOL/L Chloride Level 103 98-107 MMOL/L Carbon Dioxide Level 27 21-32 MMOL/L Anion Gap 12 5-14 MMOL/L Blood Urea Nitrogen 22 H 7-18 MG/DL Creatinine 1.21 0.60-1.30 MG/DL Estimat Glomerular Filtration Rate 42 BUN/Creatinine Ratio 18 Glucose Level 93 70-105 MG/DL Calcium Level 9.5 8.5-10.1 MG/DL Corrected Calcium 9.5 8.5-10.1 MG/DL Total Bilirubin 0.5 0.1-1.0 MG/DL Aspartate Amino Transf (AST/SGOT) 44 H 5-34 U/L Alanine Aminotransferase (ALT/SGPT) 30 0-55 U/L Alkaline Phosphatase 83 40-136 U/L C-Reactive Protein High Sensitivity 0.17 0.00-0.50 MG/DL Total Protein 6.6 6.4-8.2 GM/DL Albumin 4.0 3.2-4.5 GM/DL Urine Color YELLOW Urine Clarity CLEAR Urine pH 8.0 5-9 Urine Specific [place] 1.015 L 1.016-1.022 Urine Protein NEGATIVE NEGATIVE Urine Glucose (UA) NEGATIVE NEGATIVE Urine Ketones NEGATIVE NEGATIVE Urine Nitrite NEGATIVE NEGATIVE Urine Bilirubin NEGATIVE NEGATIVE Urine Urobilinogen 0.2 < = 1.0 MG/DL Urine Leukocyte Esterase NEGATIVE NEGATIVE Urine RBC (Auto) 3+ H NEGATIVE Urine RBC 25-50 H /HPF Urine WBC 0-2 /HPF Urine Squamous Epithelial Cells 0-2 /HPF Urine Crystals NONE /LPF Urine Bacteria NEGATIVE /HPF Urine Casts NONE /LPF Urine Mucus NEGATIVE /LPF Urine Culture Indicated NO My Orders Orders - KONRAD RUSS MD Ua Culture If Indicated (07/11/20 00:14) Cbc With Automated Diff (07/11/20 00:14) Comprehensive Metabolic Panel (07/11/20 00:14) Hs C Reactive Protein (07/11/20 00:14) Ed Iv/Invasive Line Start (07/11/20 00:14) Protime With Inr (07/11/20 00:19) Partial Thromboplastin Time (07/11/20 00:19) Ct Head/Face/Cervical Wo (07/11/20 00:19) Human Prothrombin Complx(Pcc) (Kcentra K (07/11/20 01:45) Ns (Ivpb) (Sodium C... W/Nicardipine Iv (07/11/20 02:00) Ns (Ivpb) (Sodium Chloride 0.9%) (07/11/20 02:02) Nicardipine Iv For Drip (Cardene I.V. (O (07/11/20 02:02) Ondansetron Injection (Zofran Injectio (07/11/20 02:45) Ondansetron Injection (Zofran Injectio (07/11/20 02:31) Medications Given in ED Vital Signs/I&O 07/11/20 07/11/20 00:30 02:46 Temp 36.3 Pulse 75 76 Resp 17 19 B/P (MAP) 173/104 (127) 161/106 Pulse Ox 92 92 O2 Delivery Nasal Cannula Room Air O2 Flow Rate 0.50 Blood Pressure Mean: 127 Progress Progress Note #1: Time: 02:[address] of the head, face, and cervical spine was obtained, although the trauma was actually more than a month ago. Received a call from [facility] noting a subarachnoid bleed suspicious for aneurysmal bleed. KCentra was then ordered and administered. Blood pressure is notably elevated and a Cardene drip is being initiated. I discussed treatment options with the patient. She would like to pursue aggressive treatment. [employer] has been procured for transfer to [facility], Dr. Reaves accepting. C-collar was removed after review of the c- spine CT report. Thoracic spine compression fractures were noted and felt to be subacute based on fall several weeks ago. Progress Note #2: Time: 02:36 Progress Note Patient is now vomiting. Zofran 8 mg is being administered. Diagnostic Imaging Diagonstic Imaging: CT Plain Films/CT/US/NM/MRI: facial bones, c-spine, head Comments CT head, face, and cervical spine viewed by me and stat [facility] report reviewed. Subarachnoid bleed noted. Compression fractures of the upper thoracic spine noted as well. No cervical spine fractures. Departure Impression Primary Impression: Subarachnoid hemorrhage Additional Impressions: Hypertension Qualified Codes: I10 - Essential (primary) hypertension Thoracic compression fracture Qualified Codes: S22.000A - Wedge compression fracture of unspecified thoracic vertebra, initial encounter for closed fracture Anticoagulated on warfarin Nausea and vomiting Qualified Codes: R11.2 - Nausea with vomiting, unspecified Disposition: 02 XFER SHT-TRM HOSP Condition: Stable Transfer Transfer Reason: Exceeds level of care Time Spoke to Accepting Phy: 01:55 Transfer Progress Notes Transfer accepted by Dr. Reaves at [facility]. Transfer Time: 02:35 Transfer Facility: [facility] Method of Transfer: Air Departure-Patient Inst. Referrals: NO,LOCAL PHYSICIAN (PCP/Family) Primary Care Physician Copy Copies To 1: DIEGO DAVIS MD Copies To 2: VIJAY SIDDIQUI MD, JOSHUA T MD Jul 11, 2020 01:55
[2020-07-11] MEDS ORDERED: niCARdipine IV 50 MG in NS (IVPB) 230 ML IV SCH (02:00)
[2020-07-11] MEDS ORDERED: NS (IVPB) 250 ML ONE (02:02)
[2020-07-11] MEDS ORDERED: niCARdipine IV FOR DRIP 50 MG KIT ONE (02:02)
[2020-07-11] MEDS ORDERED: ONDANSETRON 4 MG/2 ML (SDV) Z0FRAN ONE (02:31)
--- NOTE | 2020-07-11 02:34 | NUR ---
Eduardo mixed and sent with flight crew.
--- NOTE | 2020-07-11 02:40 | NUR ---
C-SPINE WAS CLEARED AND RIGID C-COLLAR COULD BE REMOVED. C-COLLAR WAS REMOVED AT THIS TIME.
[2020-07-11] MEDS ORDERED: ONDANSETRON 4 MG/2 ML (SDV) Z0FRAN IVP ONE (02:45)
[2020-07-11 02:46] VITALS: BP 161/106
--- NOTE | 2020-07-11 07:02 | Diagnostic Imaging Report ---
PROCEDURE: CT head, face, and cervical spine without contrast. TECHNIQUE: Multiple contiguous axial images were obtained through the head, neck, and facial bones without the use of intravenous contrast. Sagittal and coronal reformations through the cervical spine and facial bones were also performed. Auto Exposure Controls were utilized during the CT exam to meet ALARA standards for radiation dose reduction. INDICATION: Fall. FINDINGS: There is diffuse subarachnoid hemorrhage centered in the basilar cisterns. This is slightly more prominent along the left sylvian fissure. There is no hydrocephalus. No midline shift. There may be some chronic microvascular ischemic disease. The calvarium is intact. The sinuses and mastoid air cells are clear. Diffuse subarachnoid hemorrhage centered in the basilar cisterns and more prominent along the left sylvian fissure. There is no herniation or midline shift. Recommend further evaluation with CTA head to rule out aneurysm. Maxillofacial CT: The frontal, ethmoid, sphenoid and maxillary sinuses are clear. Mastoid air cells are clear. Nasal bones intact. Zygomatic arches are intact. Pterygoid plates are intact. The lamina papyracea and orbital floors are intact. IMPRESSION: No acute facial fracture. CT cervical spine: There is moderate kyphosis. There are some minimal age indeterminate superior endplate deformities at T1, T2 and T3. Cervical vertebral body heights are well-maintained. There is multilevel degenerative disc disease. No acute cervical spine fracture or traumatic subluxation. Odontoids intact. Lateral masses well aligned. Prevertebral soft tissues are within normal limits. There is scarring in the lung apices bilaterally right greater than left. IMPRESSION: Moderate cervical spondylosis and multilevel degenerative disc disease as well as posterior facet arthropathy without acute fracture or traumatic subluxation. There are some age indeterminate although likely chronic superior endplate deformities at T1, T2 and T3 Biapical pleural thickening or scarring right greater than left. Dictated by: Dictated on workstation # [id number]
== END 2020-07-11 02:48 | disposition short-term general hospital (02) ==
LOC: EDUNIT# 00:10 → ER 00:14
DX: S22.000A Wedge compression fracture of unspecified thoracic vertebra, initial encounter for closed fracture (principal); S00.83XA Contusion of other part of head, initial encounter; I60.9 Nontraumatic subarachnoid hemorrhage, unspecified; I10 Essential (primary) hypertension; I48.91 Unspecified atrial fibrillation; G62.9 Polyneuropathy, unspecified; G89.29 Other chronic pain; M54.9 Dorsalgia, unspecified; M54.2 Cervicalgia; Z79.01 Long term (current) use of anticoagulants; Z88.1 Allergy status to other antibiotic agents; Z88.8 Allergy status to other drugs, medicaments and biological substances; Z79.52 Long term (current) use of systemic steroids; Z79.51 Long term (current) use of inhaled steroids; Z79.891 Long term (current) use of opiate analgesic; W22.8XXA Striking against or struck by other objects, initial encounter
CPT/HCPCS: 36415; 51702; 70450; 70486; 72125; 80053; 81000; 85025; 85610; 85730; 86141; 93005

== ENCOUNTER 2020-07-31 09:44 | Inpatient (IN) | payer MEDICARE, OTHER ==
[~2020-07-31] VITALS: Ht 160 cm; Wt 50.9 kg
[~2020-07-31 09:44] MED LIST changes: -CALC-6 PO; +CALC1TAB84 PO
[2020-07-31] MEDS ORDERED: LACTULOSE SYRUP 10GM/15ML (ENULOSE) 30ML UDC PO PRN (10:45)
[2020-07-31] MEDS ORDERED: guaiFENesin/CODEINE (ROBITUSSIN AC) 10ML UDC PO PRN (10:45)
[2020-07-31] MEDS ORDERED: diphenhydrAMINE 25 MG TAB (BENADRYL) PO PRN (10:45)
[2020-07-31] MEDS ORDERED: CALCIUM CARBONATE 500 MG (TUMS) TAB.CHEW PO PRN (10:45)
[2020-07-31] MEDS ORDERED: MELATONIN 3 MG TABLET PO PRN (10:45)
[2020-07-31] MEDS ORDERED: DOCUSATE SODIUM 100 MG (COLACE) CAP PO PRN (10:45)
[2020-07-31] MEDS ORDERED: ACETAMINOPHEN 500 MG TAB (TYLENOL) PO PRN (10:45)
[2020-07-31] MEDS ORDERED: BISACODYL 10 MG SUPP (DULCOLAX) PR PRN (10:45)
[2020-07-31] MEDS ORDERED: LOPERAMIDE 2 MG (IMODIUM) TABLET PO PRN (10:45)
[2020-07-31] MEDS ORDERED: ALPRAZolam 0.25 MG (XANAX) TAB PO PRN (10:45)
[2020-07-31] MEDS ORDERED: FLEET ENEMA ADULT 1 EA BTL PR PRN (10:45)
[2020-07-31] MEDS ORDERED: ONDANSETRON 4 MG (ZOFRAN) ORAL DISSOLVE TAB PO PRN (10:45)
[2020-07-31] MEDS ORDERED: POTA-51 PO ×2 (11:24)
[2020-07-31] MEDS ORDERED: METH10TA2 PO ×2 (11:24)
[2020-07-31] MEDS ORDERED: DOCU-143 PO ×2 (11:24)
[2020-07-31] MEDS ORDERED: ASPI325T32 PO ×2 (11:24)
[2020-07-31] MEDS ORDERED: DILT120C82 PO ×2 (11:24)
[2020-07-31] MEDS ORDERED: FURO80TA83 PO ×2 (11:24)
[2020-07-31] MEDS ORDERED: GABA-486 PO ×2 (11:24)
[2020-07-31] MEDS ORDERED: MELA3TAB39 PO ×2 (11:24)
[2020-07-31] MEDS ORDERED: ACET325T38 PO ×2 (11:24)
[2020-07-31] MEDS ORDERED: ATOR20TA66 PO ×2 (11:24)
[2020-07-31] MEDS ORDERED: SENN-273 PO ×2 (11:24)
[2020-07-31] MEDS ORDERED: MODA100T27 PO ×2 (11:24)
[2020-07-31] MEDS ORDERED: PITA2TAB2 PO ×2 (11:24)
[2020-07-31] MEDS ORDERED: BISA10SU58 RC ×2 (11:24)
[2020-07-31] MEDS ORDERED: TRIA0.2581 PO ×2 (11:24)
[2020-07-31] MEDS ORDERED: HEPARIN SQ ×2 (11:28)
--- NOTE | 2020-07-31 14:53 | NUR ---
Admitted to room 231, with an admitting diagnosis of SAH , on 07-31-2020 from [facility] , accompanied by .PURVI VALENZUELA introduced to surroundings, call light, bed controls, phone, TV, temperature control, lights, meal times, smoking policy, visitor policy, side rail policy, bathrooms and showers. Patient Rights given to patient in the handbook.PURVI VALENZUELA verbalizes understanding that [facility] is not responsible for the loss or damage to any personal effects or valuables that are kept in the patients posession during their hospitalization. The following Patient Care Plans were discussed with the : Discharge Planning, ,, and . PURVI VALENZUELA verbalizes understanding of Interdisciplinary Patient Education. Patient and/or family were informed about the Rapid Response Team and its purpose. Patient received Patient Rights Booklet, which includes Privacy Act Statement and Data Collection Information Summary. Pt answers yes no questions.
[2020-07-31] MEDS ORDERED: TEMAZEPAM 15 MG (RESTORIL) CAP PO PRN (15:30)
[2020-07-31 15:34] VITALS: BP 176/92
--- NOTE | 2020-07-31 15:35 | NUR ---
CONFUSED. AWAKE AND ALERT X1. MINIMAL VERBAL RESPONSE. RN FROM REPORTS EXPRESSIVE APHASIA. KU RN ALSO REPORTS BLOOD CLOT IN RIGHT ARM. PINK LIMB ALERT BRACELET IN PLACE. BP UPON ARRIVAL IS 176/92. [facility]U RN REPORTED THAT PATIENT REFUSED AM MEDICATIONS. DR. WEEKS INFORMED.
[2020-07-31 15:42] VITALS: BP 176/92
[2020-07-31] MEDS: GABAPENTIN 100 MG (NEURONTIN) CAP PO SCH ×2 (15:47→20:56)
--- NOTE | 2020-07-31 15:57 | NUR ---
TORI RN UNSURE IF PATIENT REC'D FLU VACCINE THERE. LAURA (DAUGHTER/DPOA) UNSURE IF PATIENT HAS REC'D FLU VACCINE THIS YEAR OR PNEUMONIA VACCINE EVER.
--- NOTE | 2020-07-31 16:01 | NUR ---
INCISION ON TOP OF HEAD FROM PARTIAL COIL OF ANEURYSM AT . 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 STATES, CANNOT TOLERATE BLANKETS OR SOCKS ON FEET. WILL NOT BE ABLE TO TOLERATE ALLEVYN DRESSING ON HEELS OR SCDS. HEELS ELEVATED ON PILLOW. Addendum: 07/31/20 at 1638 by LORRAINE VARGAS RN HEELS ARE RED AND MUSHY. WILL CONTINUE TO ATTEMPT TO ELEVATE ON PILLOWS PATIENT TOLERATES.
[2020-07-31] MEDS: ENOXAPARIN 40 MG/0.4 ML (LOVENOX) SYR SC SCH (16:20)
--- NOTE | 2020-07-31 17:02 | NUR ---
LAURA (DPOA) STATES THAT PATIENT WAS A DNR AT AND WOULD LIKE TO CONTINUE THAT HERE.
[2020-07-31 17:42] VITALS: BP 176/87
--- NOTE | 2020-07-31 18:09 | NUR ---
HAS NOT VOIDED. BLADDER SCAN SHOWING 98MLS.
--- NOTE | 2020-07-31 19:31 | NUR ---
PATIENT NOTED TO BE POCKETING FOOD IN LEFT CHEEK. DR. WEEKS NOTIFIED. OK TO CHANGE DIET TO PUREED. SPEECH THERAPY TO SEE PATIENT TOMORROW AM.
--- NOTE | 2020-07-31 19:49 | PM&R Post Admission Assessment ---
PM&R HP Date of Visit: Jul 31, 2020 Time of Visit: 18:00 History of Present Illness CC: Hemorrhagic CVA 07/11/20 s/p coiling HPI: This is an 85yoWF who presents to IRF after a complicated and long [facility] course following medflight from [facility] ER after she presented via EMS with headache 6 weeks after a fall with head trauma but did not present to the ER at that time due to fear of COVID. Patient was found to have a hemorrhagic stroke requiring transfer. Patient is mostly non-verbal. Daughter in [place] is DPOA and placed DNR order. Patient will need dysphagia/pureed diet until speech therapy evaluates her on Saturday. PLOF was independent. DC note from : Name: Heidi Romero Date Of : 1935 Age: 85 years Admit date: 07/11/2020 Discharge date: 07/31/2020 Discharge Attending: Dr. 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 (HCC) Hypertension Atrial fibrillation (HCC) GERD (gastroesophageal reflux disease) Pulmonary hypertension (HCC) COPD (chronic obstructive pulmonary disease) (HCC) Chronic pain Dyslipidemia Methadone dependence (HCC) Pleural effusion, left Headache Obstructive hydrocephalus (HCC) COVID-19 ruled out by laboratory testing Acute encephalopathy Internal carotid artery dissection (HCC) Anemia Resolved Problems RESOLVED: Chronic anticoagulation Significant Past Medical History Aortic valve disease Atrial fibrillation (HCC) Carotid arterial disease (HCC) Chronic pain COPD (chronic obstructive pulmonary disease) (HCC) Dyslipidemia Erythromelalgia (HCC) Essential hypertension Frequent urinary tract infections GERD (gastroesophageal reflux disease) History of pneumonia Methadone dependence (HCC) Mitral valve disease Pleural effusion, left Pulmonary hypertension (HCC) Warfarin anticoagulation Allergies Brief Hospital Course Items Needing Follow Up Pending Labs and Follow Up Radiology Medications Medication List START taking these medications acetaminophen 325 mg tablet; Commonly known as: TYLENOL; Dose: 650 mg; Take two tablets by mouth every 4 hours as needed.; Quantity: ; Refills: 0 aspirin EC 325 mg tablet; Dose: 325 mg; Take one tablet by mouth daily. Take with food.; Quantity: 90 tablet; Refills: 3; Start taking on: August 01, 2020 bisacodyL 10 mg rectal suppository; Commonly known as: DULCOLAX; Dose: 10 mg; Insert or Apply one suppository to rectal area as directed daily.; Quantity: ; Refills: 0; Start taking on: August 01, 2020 heparin (porcine) PF 5,000units/0.5mL injection syringe; Dose: 5,000 Units; Inject 0.5 mL under the skin every 8 hours.; Quantity: 45 mL; Refills: 0 melatonin 3 mg Tab; Dose: 3 mg; Take one tablet by mouth at bedtime daily.; Quantity: 30 tablet; Refills: 0 modafiniL 100 mg tablet; Commonly known as: PROVIGIL; Dose: 100 mg; Take one tablet by mouth daily.; Quantity: 30 tablet; Refills: 0; Start taking on: August 01, 2020 senna/docusate 8.6/50 mg tablet; Commonly known as: SENOKOT-S; Dose: 2 tablet; Take two tablets by mouth twice daily.; Quantity: ; Refills: 0 CONTINUE taking these medications atorvastatin 20 mg tablet; Commonly known as: LIPITOR; Dose: 20 mg; For: excessive fat in the blood; Refills: 0 dilTIAZem CD 120 mg capsule; Commonly known as: cardIZEM CD; Dose: 120 mg; For: ventricular rate control in atrial fibrillation; Refills: 0 docusate 100 mg capsule; Commonly known as: COLACE; Dose: 100 mg; For: constipation; Refills: 0 furosemide 80 mg tablet; Commonly known as: LASIX; Dose: 40 mg; For: visible water retention; Refills: 0 gabapentin 100 mg capsule; Commonly known as: NEURONTIN; Dose: 100 mg; For: neuropathic pain; Refills: 0 methadone 10 mg tablet; Commonly known as: METHADOSE; Dose: 10 mg; For: severe chronic pain requiring long-term opioid treatment; Refills: 0 pitavastatin calcium 2 mg tablet; Commonly known as: LIVALO; Dose: 2 mg; Refills: 0 potassium chloride 20 mEq tablet; Commonly known as: K-TAB; Dose: 20 mEq; Refills: 0 triazolam 0.25 mg tablet; Commonly known as: HALCION; Dose: 0.25 mg; For: difficulty sleeping; Refills: 0 STOP taking these medications WARFARIN PO The patient was admitted in transfer for management of aneurysmal subarachnoid hemorrhage in the setting of systemic anticoagulation. Warfarin was reversed. The patient underwent external ventricular drain placement and endovascular coiling of a left posterior communicating artery aneurysm. The patient was monitored in the neurocritical care unit through the vasospasm window. The patient's initial exam was non responsive to verbal commands, however this improved to following commands and being able to verbally engage with the examiner with brief phrases/sentences. Prior to discharge the patient's EVD was removed. The patient did require significant encouragement with supplemental foods to meet caloric goals as she often declined meals. 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 female with a PMH significant for Afib on warfarin, pneumonia, COPD with pulmonary HTN, mitral and aortic valve disease, mild carotid disease, left pleural effusion, chronic UTIs, and GERD, who presented to an OSH with acute onset severe headache around midnight on 07/11, found to have an aneurysmal SAH. K-centra was administered at the OSH for an INR of 2.1, and was started on a cardene drip for HTN. She was then life flighted to [facility] for further evaluation and treatment, and she is s/p partial coil of aneurysm, EVD placement for hydrocephalus, and vasospasm monitoring. Hospital and ICU course: 07/11: Life flighted from [facility] [place] to [facility] for SAH. Cardene drip was stopped. Patient s/p angio w/ Dr. Patton for dome coiling. 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 Only the inferior part of the aneurysm was coiled, which included the likely point of rupture. Patient was somnolent, with grunting, and intermittently following commands until 1500. CT Head ordered with developing hydrocephalus. EVD was placed at bedside. 07/12: INR of 1.8 and 10 mg vitamin K was administered. 1 liter bolus of fluids administered for uptrending sodium (150 from 148). Code conversation was discussed with patient when she was noted alert and oriented. Patient stated she has an advanced directive or living well and patient's DPOA is her daughter who lives in [place], [place]. Code conversation outcome was DNAR-FI. This was confirmed during the day shift with daughter. 07/13: No acute events overnight. TCDs were attempted but not done. Patient with low urine output overnight. Na down to 141 from previous 150. 07/14: No acute events overnight, stable vasospasm watch 07/15: Stable 07/16: Stable 07/17: Stable 07/18: At 2300 patient noted to be confused overnight with urine culture +Klebsiella, started Bactrim (susceptible) 07/19: Repeat angio with Dr. 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 Post-procedure had word finding difficulty. Blood pressures persistently elevated in 160-170s and SBP goals changed to SBP <200. Patient retaining large volume urine in the setting of UTI. Required straight cath q4h. Patient is combative and refusing PO meds. 07/20: CTA/P AM for stability with stable tract hemorrhage; started on low dose heparin drip; fevered and berger cultured; Na 133 and started on 2% gtt; triple lumen PICC placed for access 07/21: 2% drip increased to 50 mL/hr from 30, PO salt added in AM if tolerated to maintain fluid balance; UA slightly worse cont Bactrim, chen replaced for p ersistent large volume urinary retention, restart diltiazem gtt as patient refusing PO med 07/22: Keep chen while on 1:1 w/ severe urinary retention, attempt to transition off dilt gtt and back to PO Cardizem, heparin gtt and ASA 81, EVD in place, vasospasm watch 07/23: NS bolus for low UOP/hyponatremia, encourage PO medications, calorie count, needs to have BM 07/24: Stable. CTA today to assess LICA dissection; Bactrim course completed 07/25: CHIQUI ON - EVD clamped this AM (head CT in am); decrease 1:1 replacement to 1/2:1; d/c april; NETWORK SECURITY ENGINEER cog/speech eval ordered per rehab med recs 07/26: CHIQUI overnight. Heparin gtt d/c'd at 12a in anticipation of EVD removal. CT head this AM with slight increase in ventricle size - EVD plan ongoing. Neuro exam overall improved this AM (while EVD clamped) 07/27: EVD with 77ml out in last 24h - to remain at 5cmH2O through today. Continue ASA 81mg until able to increase to 325mg daily (s/p EVD removal). Tentative plan to re-challenge EVD in ~48h (plan ongoing). 07/28: EVD clamped. Encourage PO intake. Neuro: L ICA dissection s/p IR 07/20 Acute SAH d/t ruptured LT PCOMM aneurysm Acute IVH 2/2 SAH Acute obstructive hydrocephalus 2/2 IVH s/p partial coiling of PCOMM aneurysm 07/11 HH2, mF 3 on admission - EVD: placed 07/11 - management per NSG team - Current level: 5cmH2O - Output last 24h: 24cc - ICPs last 24h: 2-5 Plan: PBD#17 - Repeat HCT obtained 07/28 am - Clamping EVD today - Repeat HCT tomorrow am - Nimotop 60mg Q4H x21 days total for vasospasm ppx - patient intermittently refusing - 1/2:1 fluid replacement Q4 with NS to maintain net even I/O balance - ASA 81mg daily for small ICA dissection; plan to increase to 325mg daily, 24h s/p EVD removal - PT/OT - NETWORK SECURITY ENGINEER following (language/cog) - Rehab medicine consulted - q2h Neuro checks - NEICU monitoring - Dispo: inpatient rehab likely once EVD challenge complete Sedation/Pain Management: Acute headache 2/2 SAH - stable Acute delirium likely 2/2 frequent neuro checks, change in environment, etc. - improved Anxiety - stable LE peripheral Neuropathy - severe (at baseline) - stable Lumbar radiculopathy 2/2 kyphosis Erythromelalgia - melatonin 5mg qHS - APAP 650mg q4h PRN - PRN emu oil to BLE - ENTREPRENEURSHIP PROGRAM DIRECTOR methadone 10mg daily - pt intermittently refusing - ENTREPRENEURSHIP PROGRAM DIRECTOR gabapentin 100mg TID - pt intermittently refusing Cardiac: AFIB on chronic anticoagulation (warfarin) Mitral valve disease Aortic valve disease Carotid disease HLD 07/11 Echo - EF 55%, no wall abnormality, severely dilated left atrium, mild concentric hypertrophy Plan: - continues in and out of NSR/afib/aflutter on tele - SBP goal 120-200mmHg - MAP goal > 65mmHg - ENTREPRENEURSHIP PROGRAM DIRECTOR diltiazem ER 120mg daily - refused today, if does not take later today will need to discuss dilt gtt for rate control if becomes hemodynamically unstable - ASA 81mg daily; tentative plan to increase dose to 325mg daily 24h post EVD removal - ENTREPRENEURSHIP PROGRAM DIRECTOR atorvastatin 20mg daily Respiratory: - Remains stable on RA - Continue to encourage good pulmonary hygiene (deep breathe/cough, IS, mobilize when able, chair mode, etc.) - Spo2 goal >92% GI: Suspected inadequate caloric intake (calorie count ongoing) Acute decreased appetite - improved GERD - Diet: Regular diet with boost supplements PRN - Dietary following and w/ calorie count - day#9 of inadequate intake, meeting 39% kcal needs, consider EN supplementation. I discussed Corpak placement with JESSICA Edwards (daughter), she wanted to wait another day or two to see if mental status/intake improves - Bowel reg: colace 200 BID, MOM qday, miralax 34g qday, senokot 2 tab BID + daily suppository Last BM: 07/25 Heme: Anemia - likely iatrogenic - stable Chronic anticoagulation (warfarin) 2/2 afib/flutter - currently held 2/2 risk for bleeding Hgb: 10.8 (11) Plt: 404 (395) - Will defer management ENTREPRENEURSHIP PROGRAM DIRECTOR therapeutic anticoagulation (warfarin) to primary team - DVT ppx w/ SCDs and SQ heparin - Daily CBCs - assess for coagulopathy, maintain platelets above 100k - Will check RUE US 07/28 to r/o DVT given new edema on exam ID: - 07/11: COVID-19 negative - 07/18: Urine Cx with Klebsiella (>100k CFU/ml) - 07/20: urine Cx with klebsiella (<100k CFU/ml) - 07/24: completed 5-day course of bactrim 07/27 Tmax: 37.4 WBC: 10 - No acute infectious concerns Renal: Acute urinary retention likely 2/2 neurologic condition - stable Na: 137 BUN/Cr: 20, 0.95 - 07/25 chen removed, continues to require straight cath with intermittent incontinence - bladder scan/straight cath protocol - consider placing external urinary catheter, as indicated/appropriate - 10/01:1 fluid replacement q4h Intake/Output Summary (Last 24 hours) at 07/28/2020 0650 Last data filed at 07/28/2020 0600 Gross per 24 hour Intake 1825 ml Output 952 ml Net 873 ml Endocrine: - SB - Blood glucose goal 100-180mg/dL, follow on daily BMP FEN: - ICU electrolyte replacement protocol - Daily and PRN electrolyte checks - Magnesium goal >2.0, i-Jaison goal > 1.0, Potassium goal >4.0, Phos >2.0 Past Kuolajo-Jkosad-Xzpqeg Hx Past Med/Social Hx: Reviewed Nursing Past Med/Soc Hx, Reviewed and Corrections made Patient Social History Marrital Status: single Employed/Student: retired Alcohol Beverage of Choice: Wine, Other Smoking Status: Unknown if Ever Smoked 2nd Hand Smoke Exposure: No Recent Foreign Travel: No Recent Hopitalizations: Yes ([facility] ) Immunizations Up To Date Tetanus Booster (TDap): Unknown Pediatric: Yes Date of Pneumonia Vaccine: Jun 30, 2017 Date of Influenza Vaccine: Oct 17, 2017 Seasonal Allergies Seasonal Allergies: Yes Past Medical History Surgeries: Appendectomy, Hysterectomy, Neurological, Orthopedic, Tonsillectomy Currently Using CPAP: No Currently Using BIPAP: No Cardiac: Atrial Fibrillation, Hypertension, Valvular Heart Disease Neurological: Neuropathy, Stroke (07/11/20 hemorrhagic) Reproductive: No HIV/AIDS: No Hysterectomy Genitourinary: UTI-Chronic Gastrointestinal: Gastroesophageal Reflux Musculoskeletal: Osteoporosis, Arthritis, Chronic Back Pain Loss of Vision: Bilateral Psychosocial: Sleep Difficulties, Anxiety History of Blood Disorders: No Adverse Reaction to Blood Roe: No (N/A) Family History Patient reports no known family medical history. COPD PM&R Allergy/Meds/Data Review Allergies Coded Allergies: Penicillins (Verified Allergy, Unknown, 07/31/20) hydrochlorothiazide (Verified Allergy, Unknown, 07/31/20) metoprolol (Unverified Allergy, Unknown, 04/10/18) Tetracyclines (Verified Adverse Reaction, Intermediate, SEVERE HEARTBURN, 04/10/18) Severe Heartburn amiodarone (Verified Adverse Reaction, Intermediate, MADE HER COLD, 04/10/18) clindamycin (Verified Adverse Reaction, Mild, HEARTBURN, 04/10/18) Home Medications Scheduled Aspirin (Aspirin EC), 325 MG PO DAILY, (Reported) Atorvastatin Calcium (Atorvastatin Calcium), 20 MG PO DAILY, (Reported) Bisacodyl (Dulcolax), 10 MG RC DAILY, (Reported) Diltiazem HCl (Cardizem Cd), 120 MG PO DAILY, (Reported) Docusate Sodium (Colace), 100 MG PO DAILY, (Reported) Furosemide (Lasix), 40 MG PO DAILY, (Reported) Gabapentin (Gabapentin), 100 MG PO TID, (Reported) Melatonin (Melatonin), 3 MG PO HS, (Reported) Methadone HCl (Methadone HCl), 10 MG PO DAILY, (Reported) Modafinil (Modafinil), 100 MG PO DAILY, (Reported) Pitavastatin Calcium (Livalo), 2 MG PO DAILY, (Reported) Potassium Chloride (Potassium Chloride), 20 MEQ PO DAILY, (Reported) Sennosides/Docusate Sodium (Senna-S 8.6-50 mg Tablet), 2 EACH PO BID, (Reported) [HEPARIN 5,000U/0.5mL], 0.5 ML SQ Q8H, (Reported) Scheduled PRN Acetaminophen (Tylenol), 650 MG PO Q4H PRN for PAIN-MILD (1-4), (Reported) Triazolam (Triazolam), 0.25 MG PO HS PRN for INSOMNIA, (Reported) Discontinued Medications Calcium Carbonate (Calci-Chew), 500 MG PO DAILY, (Reported) Discontinued Reason: No Longer Taking Calcium Citrate/Vitamin D3 (Citracal + D Maximum Caplet), 1 TAB PO 1300, (Reported) Discontinued Reason: No Longer Taking Cholecalciferol (Vitamin D3) (Vitamin D3), 2,000 UNIT PO DAILY, (Reported) Discontinued Reason: No Longer Taking Diltiazem HCl (Cardizem LA), 120 MG PO HS, (Reported) Discontinued Reason: No Longer Taking Estradiol (Estrace Cream), TP HS, (Reported) Discontinued Reason: No Longer Taking Fish Oil/Dha/Epa (Fish Oil 1,200 mg Fish Oil), 1,200 MG PO TID, (Reported) Discontinued Reason: No Longer Taking Fluticasone Propionate (Flonase Allergy Relief), 1 SPRAY NS DAILY PRN for ALLERGIES, (Reported) Discontinued Reason: No Longer Taking Furosemide (Furosemide), 40 MG PO BID, (Reported) Discontinued Reason: No Longer Taking Gabapentin (Gabapentin), 100 MG PO TID, (Reported) Discontinued Reason: No Longer Taking Hydrocodone/Acetaminophen (Lorcet 5-325 mg Tablet), 1-2 EACH PO Q4H PRN for PAIN Discontinued Reason: No Longer Taking Lactobacillus Combination No.4 (Probiotic), 1 CAP PO DAILY, (Reported) Discontinued Reason: No Longer Taking Magnesium Oxide (Magnesium), 250 MG PO DAILY, (Reported) Discontinued Reason: No Longer Taking Methadone HCl (Methadone HCl), 5 MG PO DAILY PRN for FOOT PAIN, (Reported) Discontinued Reason: No Longer Taking Multivits-Min/Iron/FA/Lutein (Centrum Silver Women Tablet), 1 TAB PO DAILY, (Reported) Discontinued Reason: No Longer Taking Nitrofurantoin Monohyd/M-Cryst (Macrobid 100 mg Capsule), 1 TAB PO BID WITH MEALS Discontinued Reason: No Longer Taking Phenazopyridine HCl (Pyridium), 1 TAB PO TID PRN for SPASMS Discontinued Reason: No Longer Taking Potassium Chloride (Potassium Chloride), 20 MEQ PO DAILY, (Reported) Discontinued Reason: No Longer Taking Sodium Fluoride (Sf 5000 Plus), DT HS, (Reported) Discontinued Reason: No Longer Taking Triazolam (Triazolam), 0.25 MG PO HS, (Reported) Discontinued Reason: No Longer Taking Current Medications Current Medications Reviewed Review of Systems Constitutional: see HPI Psychiatric/Neurological: Other (non verbal currently) Physical Exam Physical Exam Vital Signs Vital Signs - First Documented 07/31/20 15:34 Temp 37.0 Pulse 80 Resp 18 B/P (MAP) 176/92 (120) Pulse Ox 98 O2 Delivery Room Air Capillary Refill : Height, Weight, BMI Height: 5'3.00" Weight: 120lbs. 0.0oz. [id number]; 19.88 BMI Method:Stated General Appearance: No Apparent Distress, WD/WN, Chronically ill, Cachetic Eyes: Bilateral Eye Normal Inspection, Bilateral Eye PERRL HEENT: PERRL/EOMI, Normal ENT Inspection Neck: Supple Respiratory: Chest Non Tender, Lungs Clear, Normal Breath Sounds, No Accessory Muscle Use, No Respiratory Distress, Decreased Breath Sounds Cardiovascular: No Edema, No Gallop, No JVD, No Murmur, Normal Peripheral Pulses, Irregularly Irregular Gastrointestinal: Normal Bowel Sounds, No Organomegaly, No Pulsatile Mass, Soft Back: Normal Inspection, No CVA Tenderness, No Vertebral Tenderness Extremity: Normal Capillary Refill, Normal Inspection, No Calf Tenderness, No Pedal Edema Neurologic/Psychiatric: Alert, Depressed Affect, Disoriented, Motor Weakness, Other (minimal movement of extremities spontaneously) Skin: Normal Color, Warm/Dry Lymphatic: No Adenopathy PM&R Medical Assessment & Plan REHAB/MEDICAL ASSESSMENT AND PLAN: REHAB IMPAIRMENT GROUP: Hemorrhagic CVA ETIOLOGIC DIAGNOSIS: Hemorrhagic CVA The comorbidities that impact the patients function and/or functional outcome by: severe deficits from CVA, cachexia, chronic reflex sympathetic dystrophy of legs REHAB PLAN: The patient is being admitted to our comprehensive inpatient rehabilitation facility and can tolerate the intensity of service consisting of at least: 180 minutes of therapy a day, 5 out of 7 days a week Rehab treatment will consist of: PT OT will focus on regaining function in order to lessen the burden on caretakers and help with speech therapy to communicate The patient/family has a good understanding of our discharge process and will benefit from an interdisciplinary inpatient rehabilitation program. The patient has potential to make improvement and is in need of at least two of the following multidisciplinary therapies including but not limited to physical, occupational, speech, and prosthetics and orthotics. Additionally the patient will need services from respiratory, nutritional services, wound care, psychology, etc. (Customize this to each patient). Given the patients complex condition and risk of further medical complications, rehabilitation services cannot be safely or effectively provided at a lower level of care such as a custodial facility. BARRIERS TO DISCHARGE: Catastrophic deficits ESTIMATED LOS: 14 days DISPOSITION: Home with caregivers RELEVANT CHANGES SINCE PREADMISSION SCREENING: I have compared the patients medical and functional status at the time of the preadmission screening and there are: no changes PROGNOSIS: Fair REHABILITATION GOALS: 1. PT OT will focus on regaining function in order to lessen the burden on caretakers and help with speech therapy to communicate All the above goals were reviewed with the patient and he/she is in agreement. By signing this document, I acknowledge that I have personally performed a full physical examination on this patient within 24 hours of admission to this inpatient rehabilitation facility and have determined the patient to be able to tolerate the above course of treatment at an intensive level for a reasonable period of time. I will be completing a detailed individualized Plan of Care for this patient by day #4 of the patients stay based upon the Preadmission Screen, the Post-Admission Evaluation, and the therapy evaluations. Admission Dx/Comorbidities: (1) Subarachnoid hemorrhage Status: Acute ICD Codes: I60.9 - Nontraumatic subarachnoid hemorrhage, unspecified (2) Hypertension Status: Acute ICD Codes: I10 - Essential (primary) hypertension (3) Paroxysmal atrial fibrillation Status: Chronic ICD Codes: I48.0 - Paroxysmal atrial fibrillation (4) Reflex sympathetic dystrophy of both lower extremities ICD Codes: G90.523 - Complex regional pain syndrome I of lower limb, bilateral (5) Osteoporosis ICD Codes: M81.0 - Age-related osteoporosis without current pathological fracture (6) GERD (gastroesophageal reflux disease) ICD Codes: K21.9 - Gastro-esophageal reflux disease without esophagitis (7) Neuropathy ICD Codes: G62.9 - Polyneuropathy, unspecified (8) Valvular heart disease ICD Codes: I38 - Endocarditis, valve unspecified (9) Anxiety ICD Codes: F41.9 - Anxiety disorder, unspecified (10) Thoracic compression fracture ICD Codes: S22.000A - Wedge compression fracture of unspecified thoracic vertebra, initial encounter for closed fracture (11) Chronic back pain Status: Acute Assessment/Plan Assessment and Plan Assess & Plan/Chief Complaint Assessment: Hemorrhagic CVA with catastrophic neurological deficits Chronic reflex sympathetic dystrophy of lower extremities OP Chronic back pain h/o UTI Chronic PAF Previous Warfarin maintenance Plan: Monitor BP Refuses most meds Clonidine patch for HTN OOC due to refusing to take PO meds DNR Fair to poor prognosis 07/11: Life flighted from [facility] to [facility] for SAH. Cardene drip was stopped. Patient s/p angio w/ Dr. Patton for dome coiling. 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 Only the inferior part of the aneurysm was coiled, which included the likely point of rupture. Patient was somnolent, with grunting, and intermittently following commands until 1500. CT Head ordered with developing hydrocephalus. EVD was placed at bedside. 07/12: INR of 1.8 and 10 mg vitamin K was administered. 1 liter bolus of fluids administered for uptrending sodium (150 from 148). Code conversation was discussed with patient when she was noted alert and oriented. Patient stated she has an advanced directive or living well and patient's DPOA is her daughter who lives in [place], [place]. Code conversation outcome was DNAR-FI. This was confirmed during the day shift with daughter. 07/13: No acute events overnight. TCDs were attempted but not done. Patient with low urine output overnight. Na down to 141 from previous 150. 07/14: No acute events overnight, stable vasospasm watch 07/15: Stable 07/16: Stable 07/17: Stable 07/18: At 2300 patient noted to be confused overnight with urine culture +Klebsiella, started Bactrim (susceptible) 07/19: Repeat angio with Dr. 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 Post-procedure had word finding difficulty. Blood pressures persistently elevated in 160-170s and SBP goals changed to SBP <200. Patient retaining large volume urine in the setting of UTI. Required straight cath q4h. Patient is combative and refusing PO meds. 07/20: CTA/P AM for stability with stable tract hemorrhage; started on low dose heparin drip; fevered and berger cultured; Na 133 and started on 2% gtt; triple lumen PICC placed for access 07/21: 2% drip increased to 50 mL/hr from 30, PO salt added in AM if tolerated to maintain fluid balance; UA slightly worse cont Bactrim, chen replaced for persistent large volume urinary retention, restart diltiazem gtt as patient refusing PO med 07/22: Keep chen while on 1:1 w/ severe urinary retention, attempt to tr ansition off dilt gtt and back to PO Cardizem, heparin gtt and ASA 81, EVD in place, vasospasm watch 07/23: NS bolus for low UOP/hyponatremia, encourage PO medications, calorie count, needs to have BM 07/24: Stable. CTA today to assess LICA dissection; Bactrim course completed 07/25: CHIQUI ON - EVD clamped this AM (head CT in am); decrease 1:1 replacement to 1/2:1; d/c april; NETWORK SECURITY ENGINEER cog/speech eval ordered per rehab med recs 07/26: CHIQUI overnight. Heparin gtt d/c'd at 12a in anticipation of EVD removal. CT head this AM with slight increase in ventricle size - EVD plan ongoing. Neuro exam overall improved this AM (while EVD clamped) 07/27: EVD with 77ml out in last 24h - to remain at 5cmH2O through today. Continue ASA 81mg until able to increase to 325mg daily (s/p EVD removal). Tentative plan to re-challenge EVD in ~48h (plan ongoing). 07/28: EVD clamped. Encourage PO intake. DOLORES WEEKS DO Jul 31, 2020 19:48
[2020-07-31] MEDS ORDERED: ACETAMINOPHEN 650 MG SUPP (TYLENOL) PR PRN (20:00)
[2020-07-31] MEDS: SENNA W/DOCUSATE (SENOKOT S) TABLET PO SCH ×2 (20:56)
[2020-07-31] MEDS: MELATONIN 3 MG TABLET PO SCH (20:56)
[2020-07-31] MEDS: polyethylene glycoL POWDER 17 GM (MIRALAX) PACK PO SCH (20:56)
[2020-07-31] MEDS ORDERED: DOCUSATE SODIUM 100 MG (COLACE) CAP PO SCH (21:00)
[2020-07-31] MEDS: cloNIDine 0.1 MG PATCH (CATAPRES TTS) TDSY TD SCH (22:39)
[2020-07-31 22:54] VITALS: BP 145/79
[2020-08-01 05:13] VITALS: BP 157/88
[2020-08-01 06:06] LABS: BASOPHILS # (AUTO) 0.1 10^3/uL (0.0-0.1); BASOPHILS % (AUTO) 1 % (0-10); EOSINOPHILS # (AUTO) 0.3 10^3/uL (0.0-0.3); EOSINOPHILS % (AUTO) 5 % (0-10); HEMATOCRIT 36 % (35-52); HEMOGLOBIN 11.6 g/dL (11.5-16.0); LYMPHOCYTES # (AUTO) 1.5 10^3/uL (1.0-4.0); LYMPHOCYTES % (AUTO) 24 % (12-44); MEAN CORPUSCULAR HEMOGLOBIN 33 pg (25-34); MEAN CORPUSCULAR HGB CONC 33 g/dL (32-36); MEAN CORPUSCULAR VOLUME 102 fL (80-99); MONOCYTES # (AUTO) 0.9 10^3/uL (0.0-1.0); MONOCYTES % (AUTO) 13 % (0-12); NEUTROPHILS # (AUTO) 3.6 10^3/uL (1.8-7.8); NEUTROPHILS % (AUTO) 57 % (42-75); PLATELET COUNT 401 10^3/uL (130-400); WHITE BLOOD COUNT 6.4 10^3/uL (4.3-11.0)
[2020-08-01 06:22] LABS: ALBUMIN 3.3 GM/DL (3.2-4.5)
[2020-08-01 06:24] LABS: CALCIUM 10.7 MG/DL (8.5-10.1)
[2020-08-01 06:25] LABS: TOTAL PROTEIN 6.3 GM/DL (6.4-8.2)
[2020-08-01 06:27] LABS: BILIRUBIN,TOTAL 0.4 MG/DL (0.1-1.0)
[2020-08-01 06:29] LABS: CREATININE SERUM 0.94 MG/DL (0.60-1.30)
[2020-08-01] MEDS: KCL 20 MEQ TAB (K-DUR) PO SCH (06:30)
[2020-08-01] MEDS: FUROSEMIDE 40 MG (LASIX) TAB PO SCH (06:31)
--- NOTE | 2020-08-01 07:26 | NUR ---
PATIENT'S DAUGHTER, ROSEMARIE CALLED AND SPOKE WTIH THIS RN, REPORTED PATIENT HAS HAD FLU AND PNEUMONIA VACCINE AND IT IS UP TO DATE FOR SEASON. PATIENT IS ALERT AND RESPONDED APPROPRIATELY TO THIS RN THAT SHE GOES BY "[facility]" DENIES NEEDS OR C/O. STATES FOOD IS "NOT VERY GOOD" CONT TO MONITOR.
--- NOTE | 2020-08-01 08:20 | NUR ---
PATIENT OPENS EYES. DOES NOT STATE NAME AT THIS TIME. PATIENT FOLLOWS REQUEST OF SQUEEZING HAND WITH LEFT, LIFTS LEFT FOOT. SHAKES HEAD "NO" WHEN ASKED IF SHE IS HAVING PAIN.
[2020-08-01] MEDS: dilTIAZem120 MG (CARDIZEM CD) CAP PO SCH (08:24)
[2020-08-01] MEDS: GABAPENTIN 100 MG (NEURONTIN) CAP PO SCH ×3 (08:24→21:39)
[2020-08-01] MEDS: ASPIRIN E.C. 325 MG (ECOTRIN) TABLET PO SCH (08:24)
[2020-08-01] MEDS: METHADONE 10 MG (DOLOPHINE) TAB PO SCH ×2 (08:24→08:53)
--- NOTE | 2020-08-01 08:30 | PM&R Progress Note ---
Subjective HPI/CC On Admission Date Seen by Provider: Aug 01, 2020 Time Seen by Provider: 10:00 Subjective/Events-last exam Pt rarely communicates Dr. Hidalgo consulted for catheter needs Incontinent of the bowel Very difficult to have any type of recovery here Conferred with RN Reviewed therapy notes Checked meds and labs Review of Systems General: Fatigue, Malaise Neurological: Weakness, Confusion Objective Exam Vital Signs Vital Signs Date Time Temp Pulse Resp B/P (MAP) Pulse Ox O2 Delivery O2 Flow Rate FiO2 08/01/20 16:08 36.2 88 16 135/62 (86) 94 Room Air Capillary Refill : Less Than 3 Seconds General Appearance: No Apparent Distress, WD/WN, Chronically ill, Cachetic HEENT: PERRL/EOMI, Normal ENT Inspection Neck: Supple Respiratory: Chest Non Tender, Lungs Clear, Normal Breath Sounds, No Accessory Muscle Use, No Respiratory Distress, Decreased Breath Sounds Cardiovascular: No Edema, No Gallop, No JVD, No Murmur, Normal Peripheral Pulses, Irregularly Irregular Gastrointestinal: Normal Bowel Sounds, No Organomegaly, No Pulsatile Mass, Soft Back: Normal Inspection, No CVA Tenderness, No Vertebral Tenderness Extremity: Normal Capillary Refill, Normal Inspection, No Calf Tenderness, No Pedal Edema Neurologic/Psychiatric: Alert, Depressed Affect, Disoriented, Motor Weakness, Other (minimal movement of extremities spontaneously) Skin: Normal Color, Warm/Dry Lymphatic: No Adenopathy Results/Procedures Lab Laboratory Tests 08/01/20 05:35 Patient resulted labs reviewed. FIM Transfers Therapy Code Descriptions/Definitions Functional [place] Measure: 0=Not Assessed/NA 4=Minimal Assistance 1=Total Assistance 5=Supervision or Setup 2=Maximal Assistance 6=Modified [place] 3=Moderate Assistance 7=Complete IndependenceSCALE: Activities may be completed with or without assistive devices. 7-Lqkhpekylt-fcisqlk completes the activity by him/herself with no assistance from a helper. 5-Set-up or Clean-up Assistance-helper sets up or cleans up; patient completes activity. [place] assists only prior to or following the activity. 4-Supervision or Touching Assistance-helper provides verbal cues and/or touching/steadying and/or contact guard assistance as patient completes activity. Assistance may be provided throughout the activity or intermittently. 3-Partial/Moderate Assistance-helper does LESS THAN HALF the effort. [place] lifts, holds or supports trunk or limbs, but provides less than half the effort. 2-Substantial/Maximal Assistance-helper does MORE THAN HALF the effort. [place] lifts or holds trunk or limbs and provides more than half the effort. 7-Uxucldsdb-fmitwz does ALL the effort. Patient does none of the effort to complete the activity. Or, the assistance of 2 or more helpers is required for the patient to complete the activity. If activity was not attempted, code reason: 7-Patient Refused. 9-Not Applicable-not attempted and the patient did not perform the activity before the current illness, exacerbation or injury. 10-Not Attempted due to Environmental Limitations-(lack of equipment, weather restraints, etc.). 88-Not Attempted due to Medical Conditions or Safety Concerns. 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 Cardene drip was stopped. Patient s/p angio w/ Dr. Patton for dome coiling. 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 Only the inferior part of the aneurysm was coiled, which included the likely point of rupture. Patient was somnolent, with grunting, and intermittently following commands until 1500. CT Head ordered with developing hydrocephalus. EVD was placed at bedside. 07/12: INR of 1.8 and 10 mg vitamin K was administered. 1 liter bolus of fluids administered for uptrending sodium (150 from 148). Code conversation was discussed with patient when she was noted alert and oriented. Patient stated she has an advanced directive or living well and patient's DPOA is her daughter who lives in [place], [place]. Code conversation outcome was DNAR-FI. This was confirmed during the day shift with daughter. 07/13: No acute events overnight. TCDs were attempted but not done. Patient with low urine output overnight. Na down to 141 from previous 150. 07/14: No acute events overnight, stable vasospasm watch 07/15: Stable 07/16: Stable 07/17: Stable 07/18: At 2300 patient noted to be confused overnight with urine culture +Klebsiella, started Bactrim (susceptible) 07/19: Repeat angio with Dr. 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 Post-procedure had word finding difficulty. Blood pressures persistently elevated in 160-170s and SBP goals changed to SBP <200. Patient retaining large volume urine in the setting of UTI. Required straight cath q4h. Patient is combative and refusing PO meds. 07/20: CTA/P AM for stability with stable tract hemorrhage; started on low dose heparin drip; fevered and berger cultured; Na 133 and started on 2% gtt; triple lumen PICC placed for access 07/21: 2% drip increased to 50 mL/hr from 30, PO salt added in AM if tolerated to maintain fluid balance; UA slightly worse cont Bactrim, chen replaced for persistent large volume urinary retention, restart diltiazem gtt as patient refusing PO med 07/22: Keep chen while on 1:1 w/ severe urinary retention, attempt to transition off dilt gtt and back to PO Cardizem, heparin gtt and ASA 81, EVD in place, vasospasm watch 07/23: NS bolus for low UOP/hyponatremia, encourage PO medications, calorie count, needs to have BM 07/24: Stable. CTA today to assess LICA dissection; Bactrim course completed 07/25: CHIQUI ON - EVD clamped this AM (head CT in am); decrease 1:1 replacement to 1/2:1; d/c chen; COLLECTOR OF AQUARIUM SPECIMENS cog/speech eval ordered per rehab med recs 07/26: CHIQUI overnight. Heparin gtt d/c'd at 12a in anticipation of EVD removal. CT head this AM with slight increase in ventricle size - EVD plan ongoing. Neuro exam overall improved this AM (while EVD clamped) 07/27: EVD with 77ml out in last 24h - to remain at 5cmH2O through today. Contin ue ASA 81mg until able to increase to 325mg daily (s/p EVD removal). Tentative plan to re-challenge EVD in ~48h (plan ongoing). 10/29: EVD clamped. Encourage PO intake. 08/01/20: Supportive care Unsure if any recovery can be made due to catastrophic stroke (1) Subarachnoid hemorrhage Status: Acute (2) Hypertension Status: Acute (3) Paroxysmal atrial fibrillation Status: Chronic (4) Reflex sympathetic dystrophy of both lower extremities (5) Osteoporosis (6) GERD (gastroesophageal reflux disease) (7) Neuropathy (8) Valvular heart disease (9) Anxiety (10) Thoracic compression fracture (11) Chronic back pain Status: Acute DOLORES WEEKS DO Aug 01, 2020 08:30
[2020-08-01] MEDS: MODAFINIL 100 MG TAB (PROVIGIL) NON-FORMULARY PO SCH (08:53)
[2020-08-01] MEDS ORDERED: NON-FORMULARY MEDICATION 1 EA EA (Pitavastatin Calcium (Livalo) 2 MG) PO SCH (09:00)
--- NOTE | 2020-08-01 09:00 | NUR ---
DR SEGOVIA NOTIFIED OF PATIENT'S INABILITY TO VOID. STATES HE WILL SEE HER TODAY AND EVALUATE. CONT TO MONITOR.
--- NOTE | 2020-08-01 09:23 | Consultation-Cardiology ---
HPI-Cardiology Cardiology Consultation Date of Consultation 08/01/20 Date of Admission Time Seen by Provider: 09:00 Indication: Hemmorrhagic CVA, Persistent atrial fibrillation HPI Patient is an 85 y/o female with history of persistent Afib, COPD, HTP. Presented to ER on 07/11/2020 for severe LOYOLA, found to have aneurysmal SAH, was life flighted to for further evaluation and treatment where she underwent partial coil of aneuysm, EVD placement for hydrocephalus. She is transfered back to IRF at [facility]. Patient is mostly nonverbal, but is able to answer a few questions. Denies any pain. Denies headache. Home Medications & Allergies Allergies: Coded Allergies: Penicillins (Verified Allergy, Unknown, 07/31/20) hydrochlorothiazide (Verified Allergy, Unknown, 07/31/20) metoprolol (Unverified Allergy, Unknown, 04/10/18) Tetracyclines (Verified Adverse Reaction, Intermediate, SEVERE HEARTBURN, 04/10/18) Severe Heartburn amiodarone (Verified Adverse Reaction, Intermediate, MADE HER COLD, 04/10/18) clindamycin (Verified Adverse Reaction, Mild, HEARTBURN, 04/10/18) Home Medication List Reviewed: Yes [id number]-Heekzh-Rqxuxx Hx Patient Social History Marital Status: single Employed/Student: retired Smoking Status: Unknown if Ever Smoked 2nd Hand Smoke Exposure: No Recent Foreign Travel: No Recent Hopitalizations: Yes ( ) Immunizations Up To Date Tetanus Booster (TDap): Unknown Date of Pneumonia Vaccine: Jun 30, 2017 Date of Influenza Vaccine: Oct 17, 2017 Past Medical History chronic afib, HTN, COPD Family Medical History Significant Family History: COPD Family History: Patient reports no known family medical history. Review of Systems-General Review of Systems ROS-Unable to Obtain: unable to obtain full ROS Constitutional: see HPI, other (unable to provide review of system at this point) Psychiatric/Neurological: Other (non verbal currently) Reviewed Test Results Reviewed Test Results Lab Laboratory Tests 08/01/20 05:35: White Blood Count 6.4, Red Blood Count 3.48L, Hemoglobin 11.6, Hematocrit 36, Mean Corpuscular Volume 102H, Mean Corpuscular Hemoglobin 33, Mean Corpuscular H emoglobin Concent 33, Red Cell Distribution Width 13.4, Platelet Count 401H, Mean Platelet Volume 9.0, Immature Granulocyte % (Auto) 1, Neutrophils (%) (Auto) 57, Lymphocytes (%) (Auto) 24, Monocytes (%) (Auto) 13H, Eosinophils (%) (Auto) 5, Basophils (%) (Auto) 1, Neutrophils # (Auto) 3.6, Lymphocytes # (Auto) 1.5, Monocytes # (Auto) 0.9, Eosinophils # (Auto) 0.3, Basophils # (Auto) 0.1, Immature Granulocyte # (Auto) 0.0, Sodium Level 145, Potassium Level 4.0, Chlo ride Level 106, Carbon Dioxide Level 27, Anion Gap 12, Blood Urea Nitrogen 18, Creatinine 0.94, Estimat Glomerular Filtration Rate 57, BUN/Creatinine Ratio 19, Glucose Level 91, Calcium Level 10.7H, Corrected Calcium 11.3H, Total Bilirubin 0.4, Aspartate Amino Transf (AST/SGOT) 28, Alanine Aminotransferase (ALT/SGPT) 29, Alkaline Phosphatase 202H, Total Protein 6.3L, Albumin 3.3 Physical Exam Physical Exam Vital Signs Vital Signs - First Documented 07/31/20 15:34 Temp 37.0 Pulse 80 Resp 18 B/P (MAP) 176/92 (120) Pulse Ox 98 O2 Delivery Room Air Capillary Refill : Less Than 3 Seconds Height, Weight, BMI Height: 5'3.00" Weight: 120lbs. 0.0oz. 54.994124vv; 19.88 BMI Method:Stated General Appearance: No Apparent Distress, WD/WN, Chronically ill, Cachetic Eyes: Bilateral Eye Normal Inspection, Bilateral Eye PERRL HEENT: PERRL/EOMI, Normal ENT Inspection Neck: Supple Respiratory: Chest Non Tender, Lungs Clear, Normal Breath Sounds, No Accessory Muscle Use, No Respiratory Distress, Decreased Breath Sounds Cardiovascular: No Edema, No Gallop, No JVD, No Murmur, Normal Peripheral Pulses, Irregularly Irregular Gastrointestinal: Normal Bowel Sounds, No Organomegaly, No Pulsatile Mass, Soft Back: Normal Inspection, No CVA Tenderness, No Vertebral Tenderness Extremity: Normal Capillary Refill, Normal Inspection, No Calf Tenderness, No Pedal Edema Neurologic/Psychiatric: Alert, Depressed Affect, Disoriented, Motor Weakness, Other (minimal movement of extremities spontaneously) Skin: Normal Color, Warm/Dry Lymphatic: No Adenopathy A/P-Cardiology Admission Diagnosis Hemorrhagic CVA Persistent afib CAD HTN Assessment/Plan Hemorrhagic CVA on 07/11/2020with catastrophic neurological deficits, underwent partial coil of aneuysm, EVD placement for hydrocephalus. Continue PT/OT. Mild nonobstructive coronary artery disease, cardiac catheterization was done in 2009. Permanent atrial fibrillation, controlled rate. Intolerance to amiodarone and Multaq in the past, unable to tolerate OAC. [id number] score is 4, yearly risk of stroke without oral anticoagulation is 4 percent, cannot tolerate OAC d/t hemorrhagic CVA Cor pulmonale, Valvular heart disease, last echocardiogram done in June 2019 showing normal LV size with EF 60-65 percent, grade 3 diastolic dysfunction, l eft atrium 4.6 cm, mild MR, moderate AR, moderate TR, PA 40 mmHg. Continue to monitor Peripheral edema, history of reflex sympathetic dystrophy, peripheral edema, mild pedal edema. Continue to monitor Hypertension, restart home blood pressure medications and continue to monitor. Hyperlipidemia, maintained on Livalo, last lipid profile done on June 20, 2020 showing total cholesterol 183, triglyceride 86, LDL 68, HDL 98. Continue to monitor Mild bilateral nonobstructive carotid artery stenosis, continue to monitor. Anxiety Erythromelalgia, with reflex sympathetic dystrophy. Patient has been seen by Dr. Jama Fernandes in [place]. Peripheral neuropathy, patient is status post spinal stimulator. Chronic renal insufficiency, followed and managed by Dr. Wang Thank you for allowing us to participate in the management of Ms. Romero, this is Ck Jackson PA-C, as a scribe for Dr. Lilly. Patient was seen and evaluated with Ck, examination performed, management plan was discussed, agree with the current scribed note, I made few changes to the note using Italic font Patient was seen and evaluated with Ck Unable to provide history, having aphagia. Tired today. Continue to monitor. No changes are recommended Clinical Quality Measures DVT/VTE Risk/Contraindication: Risk Factor Score Per Nursin RFS Level Per Nursing on Admit: 4+=Very High CK BATEMAN Aug 01, 2020 9:23 am VIJAY LILLY MD Aug 01, 2020 12:00 pm
[2020-08-01] MEDS: polyethylene glycoL POWDER 17 GM (MIRALAX) PACK PO SCH ×2 (10:30→21:49)
[2020-08-01] MEDS: DOCUSATE SODIUM 100 MG (COLACE) CAP PO SCH (10:30)
[2020-08-01] MEDS: SENNA W/DOCUSATE (SENOKOT S) TABLET PO SCH ×4 (10:30→21:49)
[2020-08-01] MEDS: BISACODYL 10 MG SUPP (DULCOLAX) RC SCH (10:31)
--- NOTE | 2020-08-01 10:57 | Physical Therapy Evaluation ---
PT Evaluation-General Medical Diagnosis Admission Date Jul 31, 2020 at 14:29 Medical Diagnosis: CVA Onset Date: Jul 11, 2020 Therapy Diagnosis Therapy Diagnosis: Impaired mobility and strength Height/Weight Height (Feet): 5 Height (Inches): 3.00 Weight (Pounds): 120 Weight (Ounces): 0.0 Precautions Precautions/Isolations: Fall Prevention, Standard Precautions, Pressure Ulcer Weight Bear Status Right Lower Extremity: Right Full Weight Bearing Left Lower Extremity: Left Full Weight Bearing Referral Physician: Parris Reason for Referral: Evaluation/Treatment Medical History Pertinent Medical History: Atrial Fib, GERD, HTN, Neuropathy, Renal Insufficiency Reviewed History: Yes Social History Home: Single Level Current Living Status: Alone PT Steps Into Home: 3 Pt unable to answer any questions on social history. Nursing reports she was living alone. In 2018 home was single level with 3 steps, living alone with sister two doors down; unclear if this has changed. Prior Prior Level of Function SCALE: Activities may be completed with or without assistive devices. 6-Rmmyjycpnv-jmovupw completes the activity by him/herself with no assistance from a helper. 5-Set-up or Clean-up Assistance-helper sets up or cleans up; patient completes a ctivity. [place] assists only prior to or following the activity. 4-Supervision or Touching Assistance-helper provides verbal cues and/or touching/steadying and/or contact guard assistance as patient completes activity. Assistance may be provided throughout the activity or intermittently. 3-Partial/Moderate Assistance-helper does LESS THAN HALF the effort. [place] lifts, holds or supports trunk or limbs, but provides less than half the effort. 2-Substantial/Maximal Assistance-helper does MORE THAN HALF the effort. [place] lifts or holds trunk or limbs and provides more than half the effort. 4-Ebeqejkis-noiaka does ALL the effort. Patient does none of the effort to complete the activity. Or, the assistance of 2 or more helpers is required for the patient to complete the activity. If activity was not attempted, code reason: 7-Patient Refused. 9-Not Applicable-not attempted and the patient did not perform the activity before the current illness, exacerbation or injury. 10-Not Attempted due to Environmental Limitations-(lack of equipment, weather restraints, etc.). 88-Not Attempted due to Medical Conditions or Safety Concerns. Pt unable to answer any questions on PLOF. Pt was independent with bed mobility, transfers, and gait in 2018 when she was last evaluated by [facility]. PT Evaluation-Current Subjective Pt presents in bed in seated position. Pt unable to vocalize any pain, but grimaces when extremities are moved. Pt/Family Goals Return home Objective Patient Orientation: Non-Verbal/Aphasic ROM/Strength ROM Lower Extremities WFL Strength Lower Extremities Pt not able follow instructions to assess Sensory Vision: Wears Glasses Sensation Lower Extremities Unable to assess as pt does not follow instructions Transfers Roll Left & Right (QC): 1 Sit to Lying (QC): 1 Lying to Sitting/Side of Bed(Q: 1 Sit to Stand (QC): 1 Chair/Hwb-ag-Uugvb Xfer(QC): 1 Toilet Transfer (QC): 1 Car Transfer (QC): 88 Gait Does the Patient Walk?: No and Walking Goal IS indicated Mode of Locomotion: Wheelchair Anticipated Mode of Locomotion: Wheelchair Walk 10 feet (QC): 88 Walk 50 ft with 2 Turns(QC): 88 Walk 150 ft (QC): 88 Walking 10ft/uneven surface-QC: 88 Wheelchair Training Does the Pt Use a Wheelchair?: Yes Wheel 50 ft with 2 turns (QC): 1 Wheel 150 ft (QC): 1 Type of Wheelchair: Manual Stairs 1 Step (curb) (QC): 88 4 Steps (QC): 88 12 Steps (QC): 88 Balance Sitting Static: Fair Sitting Dynamic: Poor Standing Static: Poor Standing Dynamic: Poor Picking up an Object (QC): 88 Treatment Standing balance in parallel bars Assessment/Needs Pt is unable to communicate any response to therapist's questions regarding home, PLOF, pain, etc. Pt does grimace as though she is pain, and mumbles "god bless mckenzie" or "amen" when moved but unable to communicate details to this pain. Pt dependent with transfers; pt instructed on task and what she can do assist but pt does not act. Pt dependent with sit to stand but is able to ma intain standing with max assist in parallel bars. With max assist for balance in standing pt's RLE is progressed forward, but is unable to shift weight to take step and instead sits. Rehab Potential: Poor PT Short Term Goals Short Term Goals Time Frame: Aug 08, 2020 Roll Left & Right: 2 Sit to lyin Lying to sitting on side of be: 2 Sit to stand: 2 Chair/xsb-ts-lmuvp transfer: 2 Wheel 50ft w/2 turns: 3 Wheel 150 feet: 3 PT Chcf Goals Chcf Goals PT Chcf Goals Time Frame: Aug 22, 2020 Roll Left & Right (QC): 3 Sit to Lying (QC): 3 Lying-Sitting on Side/Bed(QC): 3 Sit to Stand (QC): 3 Chair/Rje-ha-Cxrsw Xfer(QC): 3 Toilet Transfer (QC): 3 Car Transfer (QC): 3 Does the Patient Walk: No and Walking Goal IS indicated Walk 10 feet (QC): 3 Walk 50ft with 2 Turns (QC): 88 Walk 150 ft (QC): 88 Walking 10ft on Uneven Surface: 3 1 Step (curb) (QC): 2 4 Steps (QC): 88 12 Steps (QC): 88 Picking up an Object (QC): 88 Does the Pt use WC or Scooter?: Yes Wheel 50 feet with 2 turns (QC: 4 Wheel 150 feet: 4 PT Plan Problem List Problem List: Activity Tolerance, Functional Strength, Safety, Balance, Gait, Transfer, Bed Mobility, ROM Treatment/Plan Treatment Plan: Continue Plan of Care Treatment Plan: Bed Mobility, Education, Functional Activity Nieves, Functional Strength, Group Therapy, Gait, Safety, Therapeutic Exercise, Transfers Treatment Duration: Aug 15, 2020 Frequency: At least 5 of 7 days/Wk (IRF) Estimated Hrs Per Day: 1.5 hours per day Patient and/or Family Agrees t: Yes Safety Risks/Education Patient Education: Transfer Techniques, Correct Positioning, W/C Management, Safety Issues Teaching Recipient: Patient Teaching Methods: Demonstration, Discussion Response to Teaching: Reinforcement Needed Discharge Recommendations Plan Pt will work on bed mobility, balance, transfer training, gait training and therapeutic exercises. Time/GCodes Time In: 1000 Time Out: 1100 Total Billed Treatment Time: 60 Total Billed Treatment 1 visit EVM 10' FA 50' PT Eval [id number]; Co-treated with OT [id number] due to patient's limitations in mobility, strength, transfers, ability to follow instructions, and coordinated UEs and LEs. PT focused on transfers and LE mobility while OT focused on bathing and UEs. IAN LARKIN PT Aug 01, 2020 10:57
--- NOTE | 2020-08-01 11:09 | Occupational Therapy Eval ---
OT Evaluation-General/PLF Medical Diagnosis Admission Date Jul 31, 2020 at 14:29 Medical Diagnosis: SAH Onset Date: Jul 11, 2020 Therapy Diagnosis Therapy Diagnosis: decreased ADL status, Height/Weight Height (Feet): 5 Height (Inches): 3.00 Weight (Pounds): 120 Weight (Ounces): 0.0 Precautions Precautions/Isolations: Fall Prevention, Standard Precautions, Pressure Ulcer Referral Physician: Parris Referral Reason: Evaluation/Treatment Medical History Pertinent Medical History: Atrial Fib, GERD, HTN, Neuropathy, Renal Insufficiency Additional Medical History COPD, chronic pain, dyslipidemia, methadone dependence, pleural effusion (left), headache, obstructive hydrocephalus, anemia, internal carotid artery dissection, anemia, Current History Pt presented to [facility] ED via EMS with headache on 07/11/2020, pt had falled 6 weeks prior but did not present to ED at the time due to fear of COVID. Pt found to have a hemorrhagic stroke, requiring transfer and was life flighted from [facility] to [facility], CT showed developing hydrocephalus & EVD placed. Pt transferred to [facility] ARU on 07/31/2020 for skilled therapies and continued medication management Social History Pt unable to provide information about PLOF and home set up. Pt's nurse indicates pt lives alone, but plans to live with family at discharge. ADL-Prior Level of Function SCALE: Activities may be completed with or without assistive devices. 2-Vporbqxtja-glldong completes the activity by him/herself with no assistance from a helper. 5-Set-up or Clean-up Assistance-helper sets up or cleans up; patient completes activity. [place] assists only prior to or following the activity. 4-Supervision or Touching Assistance-helper provides verbal cues and/or touching/steadying and/or contact guard assistance as patient completes activity. Assistance may be provided throughout the activity or intermittently. 3-Partial/Moderate Assistance-helper does LESS THAN HALF the effort. [place] lifts, holds or supports trunk or limbs, but provides less than half the effort. 2-Substantial/Maximal Assistance-helper does MORE THAN HALF the effort. [place] lifts or holds trunk or limbs and provides more than half the effort. 9-Oisqzwgnf-ndmlmy does ALL the effort. Patient does none of the effort to complete the activity. Or, the assistance of 2 or more helpers is required for the patient to complete the activity. If activity was not attempted, code reason: 7-Patient Refused. 9-Not Applicable-not attempted and the patient did not perform the activity before the current illness, exacerbation or injury. 10-Not Attempted due to Environmental Limitations-(lack of equipment, weather restraints, etc.). 88-Not Attempted due to Medical Conditions or Safety Concerns. ADL PLOF Comments Pt unable to provide information about PLOF Self Care: Unknown Functional Cognition: Unknown OT Current Status Subjective Pt laying in bed, closes eyes upon OT arrival. Pt appears mostly non-verbal, stating "God bless Tamara", or "ouch" when LUE/LLE are moved. Pt keeps eyes closed throughout most of session, does not follow command to open eyes, and does not follow commands throughout tx. Mental Status/Objective Patient Orientation: Non-Verbal/Aphasic Current Glasses/Contacts: Yes Upper Extremity ROM RUE PROM shoulder flexion to approx 90 degrees then pt grimaces. Full PROM RUE elbow, wrist, fingers LUE AAROM shoulder flexion to approx 120 degrees. Pt does not follow commands/cues to move BUEs, she does spontaneously move each hand and bend the elbow to touch her face. Upper Extremity Coordination decreased Upper Extremity Sensation unable to assess Upper Extremity Strength Pt unable to follow commands for testing. ADL-Treatment Eating (QC): 2 (Per nursing report, pt required assistance bringing food to mouth, pt able to get food from utensil and swallow. ) Oral Hygiene (QC): 1 (Based on clinical judgement and pt not following commands, pt would require total assistance with task) Shower/Bathe Self (QC): 1 (Pt required total assist with task, assist x2 in stand to wash buttocks. Pt unable to follow commands to use washcloth) Upper Body Dressing (QC): 1 (Pt requires total assistance to don/doff shirt) Lower Body Dressing (QC): 1 (Pt requires assistance threading BLEs into pants, assist x2 in stand to manage pants up) On/Off Footwear (QC): 1 (Total assist to don/doff slip on shoes.) Toileting Hygiene (QC): 1 (Based on clinical judgement, pt would require assistance with clothing management and hygiene.) Other Treatments [id number] OT evaluation. OT entered room and introduced self to pt and educated pt on purpose/benefits of OT. OT attempted to ask pt about PLOF and home set up, but pt closed her eyes. Pt did not provide information about PLOF, and did not answer any yes/no questions, instead keeping her eyes closed. OT encouraged pt to open her eyes but pt kept them closed. Pt leaning towards R side of bed, requiring assist x2 to reposition. [id number] OT/PT cotreat: OT/PT cotreat due to skill of 2 clinicians required wh ich a cardiac rehabilitation program director could not perform in order to coordinate UE/LE with tasks, decrease fall risks, perform functional transfers, and to complete ADLS. OT focused on UE placement, cues for sequencing and safety, ADLs, while PT focused on LE placement, overall gross movements, transfers. Pt transferred supine to sit EOB dependently, requiring mod A to maintain sitting balance. Pt then transferred EOB to w/c via SPT, dependent transfer. Pt leaning towards R side of w/c, OT repositioned pt with pillow under R arm and to pt's R side. Pt taken into the restroom where sponge bath was complete. OT handed pt washcloth in L hand, pt did not grasp wash cloth and dropped it into her lap. OT placed washcloth in R hand but pt did not follow instructions and made no purposeful movements. OT dependently completed sponge bath. Pt dependent for donning brief, shirt, and footwear. Pt encouraged to perform w/c mobility, she did not initiate any movements. When w/c was pushed forward, pt is able to bring L foot forward, but did not bring R foot forward. Footrests placed on w/c and pt taken to therapy gym. At parallel bars, pt completed dependent stand, with OT placing R hand on bar for pt, pt retropulsive during stand, able to stand ~1 min before sitting. Pt unable to take any steps. Pt taken back to room, transferred back to bed. Post OT/PT cotreat, pt laying in bed, call light in reach and all needs met, bed alarm on. Education OT Patient Education: Correct positioning, Modified ADL techniques, Progress toward Goal/Update tx plan, Purpose of tx/functional activities Teaching Recipient: Patient Teaching Methods: Discussion Response to Teaching: Unable to Return Demonstration OT Reproductive Healthcare Assistant Goals Senior Living Goals Time Frame: Aug 26, 2020 Eating (QC): 5 Oral Hygiene (QC): 4 Toileting Hygiene (QC): 3 Shower/Bathe Self (QC): 3 Upper Body Dressing (QC): 5 Lower Body Dressing (QC): 3 On/Off Footwear (QC): 3 Additional Goals: 1-Demonstrate ADL Tasks, 2-Verbalize Understanding, 3- ImproveStrength/Nieves 1=Demonstrate adherence to instructed precautions during ADL tasks. 2=Patient will verbalize/demonstrate understanding of assistive devices/modifications for ADL. 3=Patient will improve strength/tolerance for activity to enable patient to perform ADL's. OT Education/Plan Problem List/Assessment Assessment: Decreased Activ Tolerance, Decreased UE Strength, Dependent Transfers, Impaired Bed Mobility, Impaired Cognition, Impaired Coordination, Impaired Funct Balance, Impaired I ADL's, Impaired Self-Care Skills, Restricted Funct UE ROM Discharge Recommendations Plan/Recommendations: Continue POC Treatment Plan/Plan of Care Patient would benefit from OT for education, treatment and training to promote independence in ADL's, mobility, safety and/or upper extremity function for ADL's. Plan of Care: ADL Retraining, Functional Mobility, Group Exercise/Act as Ind, UE Funct Exercise/Act Treatment Duration: Aug 26, 2020 Frequency: At least 5 of 7 days/Wk (IRF) Estimated Hrs Per Day: 1.5 hours per day Agreement: Yes Rehab Potential: Guarded Time/GCodes Start Time: 09:50 Stop Time: 11:00 Total Time Billed (hr/min): 60 Billed Treatment Time [id number] OT evaluation [id number] OT/PT cotreat 1, EVH (10'), ADL 2 (35'), FA (15') ADITHYA KAMARA OT Aug 01, 2020 11:09
--- NOTE | 2020-08-01 12:35 | NUR ---
DR SEGOVIA HERE TO ASSESS PATIENT . NEW ORDERS RECEIVED. Addendum: 08/01/20 at 1412 by MEGAN BYNUM RN dr segovia will start patient on urecholine and flomax. instructed to this rn to insert chen if patient requires straight cath again, to insert chen. leave in for 48 hours and reassess, allowing medication anticholenergics to take effect.
--- NOTE | 2020-08-01 14:38 | Therapy Group Daily Note ---
Therapy Daily Group Note Patient Education Topic Home Safety Exercises LE Seated Exercise, UE Exercise Session Ratio (pt:therapist): 4:1 Goal of Session: Education on ARU Expectations, Home Safety Strategies, UE/LE Strengthing Goal Met for this Session: Yes Pt Benefit of Group: F/U Use of Strategies @Home, Increased Functional Safety, Increased Functional Strength, Improved Cognition Other/Notes Pt therapist propelled w/c to therapy gym for OT/PT group. Group consisted of introductions (name, place living, favorite thanksgiving food), socialization, seated UE/LE exercises, home safety trivia, ARU description and home safety education. Pt had verbal cues to introduce self, unable to hear RAMOS spoke up for pt. Pt was able to acknowledge understanding of educational topics by nodding head in affirmative. RAMOS guided pt UE/LE for seated exercises and completed 1 set of 10 reps each. After session, pt lying in bed with call light/phone in reach. All needs met in room. Start Time: 13:00 Stop Time: 14:10 Total Billed Treatment Time: 70 Total Billed Treatment 1-ANITA CLIFTON Aug 01, 2020 14:38
--- NOTE | 2020-08-01 14:53 | ST Cognitive Linguistic Eval ---
Speech Evaluation-General Medical Diagnosis SAH Onset Date: Jul 11, 2020 Therapy Diagnosis Therapy Diagnosis: Aphasia Referral Referring Physician: Dr. Nye Medical History Pertinent Medical History: Atrial Fib, GERD, HTN, Neuropathy, Renal Insufficiency Reviewed History: Yes Social History Current Living Status: Alone Speech PLF-Current Status Prior Level of Function Patient is unable to provide prior status information, however nursing reports she lived alone. Subjective Patient was nonverbal throughout the evaluation in spite of maximum attempts to get the patient to respond. She did open her eyes upon command. Language Eval: Auditory Comprehends Simple Yes/No Ques: Severe Indent/Objects Multiple Goss: Severe Ident/Pics in Multiple Goss: Severe Follows 1-Step Commands: Severe Follows Complex Directions: Severe Follows General Conversations: Severe Language Eval: Verbal Language Completes Spontaneous Greeting: Severe Produces Auto, Serial Info: Severe Imitates Simple Words/Phrases: Severe Word Finding: Severe Requests Basic Needs: Severe States Basic Personal Info: Severe Expresses Complex Ideas: Severe Objective Cognitive Domain Memory: Severe Problem Solving: Severe Executive Functions: Severe Composite Severity Rating: Severe Objective Formal/Standardized Tests Informal tasks Results Severe rating due to inability to cooperate and/or respond given max verbal and tactile cues Oral Motor/Speech Production Non verbal Impression Patient is an 85 y/o female who was transferred to the ARU s/p SAH. Patient closed her eyes upon my entering her room. Patient was asked simple y/n questions related to herself without verbal response. Patient did open her eyes and look at me. Patient was given maximum verbal and tactile cues without any verbal output. Patient was noted to respond to nursing while emptying her bladder with a groan, other than that no noise was noted. Clinician is unsure if these behaviors are new post SAH or patient's normal personality. Speech Patient Assess Expression of Ideas/Wants: Rarely/Never (1) Understanding Verbal Content: Sometimes Understands(2) Brief Interview-Mental Status: No(pt is rarely/never understood) Repetition of Three Words: None (0) Temporal Orientation: Year: No answer (0) Temporal Orientation: Month: No answer (0) Temporal Orientation: Day: Incorrect or No Answer(0) Recall : Wear to say "Sock": No, could not recall (0) Recall : Color: No, could not recall (0) Recall : Bed: No, could not recall (0) Memory/Recall Ability: None of the above were recalled Speech Short Term Goals Short Term Goals Short Term Goals 1) Patient will respond verbally/gesturally to simple y/n questions at 75% with min to mod cues. 2) Patient will respond to stimuli in her room for daily needs to be met at 75% with min to mod cues. Speech Prison Goals Prison Goals Patient will improve communication for needs to be met. Speech-Plan Patient/Family Goals Patient/Family Goals: Patient plans on living with family upon discharge. Treatment Plan Speech Therapy Treatment Plan: Continue Plan of Care Treatment Duration: Aug 12, 2020 Frequency: 4 times per week (Patient will receive skilled ST 4-5x per week) Estimated Hrs Per Day: .5 hour per day Rehab Potential: Poor Barriers to Learning: Patient's recent SAH, age, lack of communication Pt/Family Agrees to Plan: Yes Safety Risks/Education Teaching Recipient: Patient Teaching Methods: Discussion Response to Teaching: Reinforcement Needed Education Topics Provided: Communication of needs Time Speech Therapy Time In: 11:00 Speech Therapy Time Out: 11:30 Total Billed Time: 30 Billed Treatment Time 1, MARILU MUNGUIA [address] ST Aug 01, 2020 14:53
[2020-08-01 16:08] VITALS: BP 135/62
[2020-08-01] MEDS: BETHANECHOL 10 MG (URECHOLINE) TAB PO SCH ×2 (16:11→21:39)
[2020-08-01] MEDS: cloNIDine 0.1 MG PATCH (CATAPRES TTS) TDSY TD SCH (16:11)
[2020-08-01] MEDS: ENOXAPARIN 40 MG/0.4 ML (LOVENOX) SYR SC SCH (16:11)
[2020-08-01] MEDS: TAMSULOSIN 0.4 MG (FLOMAX) CAP PO SCH (17:46)
--- NOTE | 2020-08-01 19:18 | NUR ---
Bedside report received from MEGAN JARRELL, assume care of pt
--- NOTE | 2020-08-01 19:20 | NUR ---
Bladder scan showed 35ml urine will check bladder scan later
--- NOTE | 2020-08-01 19:39 | CONSULTATION REPORT ---
DATE OF SERVICE: 08/01/2020 ATTENDING PHYSICIAN: Dr. Nye. SUMMARY: After reviewing the patient's record in the office and hospital, the history and physical of Dr. Nye, this is an 85-year-old white lady known to me because of history of cancer of the bladder, had a TURBT in 2018. Follow up cystoscopy in the office, latest one in 04/12/2020 were negative for recurrence of cancer. She also had a urethral caruncle resected by me with no recurrence. I reviewed her history and physical. 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 She has been straight cath, unable to void on her own. SHE HAS MULTIPLE ALLERGIES AMONG WHICH TETRACYCLINE, HCTZ, CLINDAMYCIN, METOPROLOL, AMIODARONE AND PENICILLIN. She is still unable to void on her own. IMPRESSION: 1. Neurogenic bladder with retention, post left subarachnoid hemorrhage and resulting in right CVA. 2. History of CA of the bladder with no recurrence. 3. History of urethral caruncle with post-excision and no recurrence. PLAN: We will start her on Flomax 0.4 mg daily and Urecholine 10 mg before meals and at bedtime and manage accordingly to her response and adverse effect. Job ID: [id number] DocumentID: [id number] Dictated Date: 08/01/2020 13:06:05 Diet Kitchen Cook Date: 08/01/2020 19:38:31 Dictated By: TELLY SEGOVIA MD MTDD
--- NOTE | 2020-08-01 21:39 | NUR ---
pt took meds crushed in pudding but refused miralax & Senokot, pt at first would not answer questions but with prodding pt answered questions & did not want laxatives & because pt had stool today did not push laxatives, pt aware of person only did not get answer to place & date but did respond to verbal commands
[2020-08-01] MEDS: MELATONIN 3 MG TABLET PO SCH (21:40)
--- NOTE | 2020-08-02 00:20 | NUR ---
bladder scan showed 3ml & had wet brief, pt cleaned & changed
--- NOTE | 2020-08-02 05:10 | NUR ---
brief dry, bladder scan shows 111ml
[2020-08-02 05:15] VITALS: BP 108/66
[2020-08-02] MEDS: BETHANECHOL 10 MG (URECHOLINE) TAB PO SCH ×4 (05:49→21:36)
[2020-08-02] MEDS: FUROSEMIDE 40 MG (LASIX) TAB PO SCH (06:31)
[2020-08-02] MEDS: KCL 20 MEQ TAB (K-DUR) PO SCH (06:31)
--- NOTE | 2020-08-02 08:08 | Cardiology Progress Note ---
Subjective Date Seen by Provider: Aug 02, 2020 Time Seen by Provider: 08:07 Subjective/Events-last exam Patient is laying down in bed, sleeping, did not wake her up Report from the nurses that she is able to respond to questions. Review of Systems General: Other (unable to provide review of systems) Objective-Cardiology Exam Last Set of Vital Signs Vital Signs 08/02/20 05:15 Temp 36.6 Pulse 90 Resp 18 B/P (MAP) 108/66 (80) Pulse Ox 94 O2 Delivery Room Air Capillary Refill : Less Than 3 Seconds I&O Intake and Output 08/02/20 00:00 Intake Total 770 ml Output Total 910 ml Balance -140 ml Intake Oral 770 ml Output Urine Total 910 ml Bladder Scan Volume Amount 23 ml 352 ml 460 ml 35 ml # Bowel Movements 1 General: No Acute Distress, Other (sleeping) HEENT: Atraumatic Neck: Supple Lungs: Clear to Auscultation Heart: Regular Rate, Normal S1, Normal S2 Abdomen: Normal Bowel Sounds Extremities: No Clubbing, No Cyanosis Skin: No Rashes, No Breakdown A/P-Cardiology Admission Diagnosis Hemorrhagic CVA Persistent afib CAD HTN Assessment/Plan Hemorrhagic CVA on 07/11/2020 with catastrophic neurological deficits, underwent partial coil of aneuysm, EVD placement for hydrocephalus. Continue PT/OT. Mild nonobstructive coronary artery disease, cardiac catheterization was done in 2009. Continue to monitor Permanent atrial fibrillation, controlled rate. Intolerance to amiodarone and Multaq in the past, unable to tolerate OAC. [id number] score is 4, yearly risk of stroke without oral anticoagulation is 4 percent, cannot tolerate OAC d/t hemorrhagic CVA Cor pulmonale, Valvular heart disease, last echocardiogram done in June 2019 showing normal LV size with EF 60-65 percent, grade 3 diastolic dysfunction, left atrium 4.6 cm, mild MR, moderate AR, moderate TR, PA 40 mmHg. Continue to monitor Peripheral edema, history of reflex sympathetic dystrophy, peripheral edema, mild pedal edema. Continue to monitor Hypertension, restart home blood pressure medications and continue to monitor. Hyperlipidemia, maintained on Livalo, last lipid profile done on June 20, 2020 showing total cholesterol 183, triglyceride 86, LDL 68, HDL 98. Continue t o monitor Mild bilateral nonobstructive carotid artery stenosis, continue to monitor. Anxiety Erythromelalgia, with reflex sympathetic dystrophy. Patient has been seen by Dr. Jama Fernandes in [place]. Peripheral neuropathy, patient is status post spinal stimulator. Chronic renal insufficiency, followed and managed by Dr. Wang Clinical Quality Measures DVT/VTE Risk/Contraindication: Risk Factor Score Per Nursin RFS Level Per Nursing on Admit: 4+=Very High VIJAY SIDDIQUI MD Aug 02, 2020 08:08
[2020-08-02] MEDS: dilTIAZem120 MG (CARDIZEM CD) CAP PO SCH (08:36)
[2020-08-02] MEDS: MODAFINIL 100 MG TAB (PROVIGIL) NON-FORMULARY PO SCH (08:36)
[2020-08-02] MEDS: GABAPENTIN 100 MG (NEURONTIN) CAP PO SCH ×3 (08:36→21:35)
[2020-08-02] MEDS: SENNA W/DOCUSATE (SENOKOT S) TABLET PO SCH ×4 (08:36→21:36)
[2020-08-02] MEDS: METHADONE 10 MG (DOLOPHINE) TAB PO SCH (08:36)
[2020-08-02] MEDS: ASPIRIN E.C. 325 MG (ECOTRIN) TABLET PO SCH (08:36)
[2020-08-02] MEDS: BISACODYL 10 MG SUPP (DULCOLAX) RC SCH (08:36)
[2020-08-02] MEDS: DOCUSATE SODIUM 100 MG (COLACE) CAP PO SCH (08:37)
[2020-08-02] MEDS: polyethylene glycoL POWDER 17 GM (MIRALAX) PACK PO SCH ×2 (08:37→21:36)
--- NOTE | 2020-08-02 08:57 | PM&R Progress Note ---
Subjective HPI/CC On Admission Date Seen by Provider: Aug 02, 2020 Time Seen by Provider: 11:00 Subjective/Events-last exam 08/02/20: Pt actually doing very well She spoke with me today Having some behaviors it appears Will do a senior behavioral unit screen Post void residual is minimal Incontinent of bowel and bladder also Pt rarely communicates Dr. Hidalgo consulted for catheter needs Incontinent of the bowel Very difficult to have any type of recovery here Conferred with RN Reviewed therapy notes Checked meds and labs Review of Systems General: Fatigue, Malaise Neurological: Weakness, Incoordination, Confusion Objective Exam Vital Signs Vital Signs Date Time Temp Pulse Resp B/P (MAP) Pulse Ox O2 Delivery O2 Flow Rate FiO2 08/02/20 16:30 36.6 81 14 93/44 (60) 96 Room Air Capillary Refill : Less Than 3 Seconds General Appearance: No Apparent Distress, WD/WN, Chronically ill, Cachetic HEENT: PERRL/EOMI, Normal ENT Inspection Neck: Supple Respiratory: Chest Non Tender, Lungs Clear, Normal Breath Sounds, No Accessory Muscle Use, No Respiratory Distress, Decreased Breath Sounds Cardiovascular: No Edema, No Gallop, No JVD, No Murmur, Normal Peripheral Pulses, Irregularly Irregular Gastrointestinal: Normal Bowel Sounds, No Organomegaly, No Pulsatile Mass, Soft Back: Normal Inspection, No CVA Tenderness, No Vertebral Tenderness Extremity: Normal Capillary Refill, Normal Inspection, No Calf Tenderness, No Pedal Edema Neurologic/Psychiatric: Alert, Depressed Affect, Disoriented, Motor Weakness, Other (minimal movement of extremities spontaneously) Skin: Normal Color, Warm/Dry Lymphatic: No Adenopathy Results/Procedures Lab Patient resulted labs reviewed. FIM Transfers Therapy Code Descriptions/Definitions Functional [place] Measure: 0=Not Assessed/NA 4=Minimal Assistance 1=Total Assistance 5=Supervision or Setup 2=Maximal Assistance 6=Modified [place] 3=Moderate Assistance 7=Complete IndependenceSCALE: Activities may be completed with or without assistive devices. 7-Uqpyzeokej-quqcvum completes the activity by him/herself with no assistance from a helper. 5-Set-up or Clean-up Assistance-helper sets up or cleans up; patient completes activity. [place] assists only prior to or following the activity. 4-Supervision or Touching Assistance-helper provides verbal cues and/or touching /steadying and/or contact guard assistance as patient completes activity. Assistance may be provided throughout the activity or intermittently. 3-Partial/Moderate Assistance-helper does LESS THAN HALF the effort. [place] lifts, holds or supports trunk or limbs, but provides less than half the effort. 2-Substantial/Maximal Assistance-helper does MORE THAN HALF the effort. [place] lifts or holds trunk or limbs and provides more than half the effort. 1-Gylzqkmnb-kjbofv does ALL the effort. Patient does none of the effort to complete the activity. Or, the assistance of 2 or more helpers is required for the patient to complete the activity. If activity was not attempted, code reason: 7-Patient Refused. 9-Not Applicable-not attempted and the patient did not perform the activity before the current illness, exacerbation or injury. 10-Not Attempted due to Environmental Limitations-(lack of equipment, weather restraints, etc.). 88-Not Attempted due to Medical Conditions or Safety Concerns. Roll Left to Right (QC): 1 Sit to Lying (QC): 1 Sit to Stand (QC): 1 Chair/Pes-fx-Dnvyp Xfer(QC): 1 Car Transfer (QC): 88 Gait Training Does the Patient Walk?: No and Walking Goal IS indicated Walk 10 feet (QC): 88 Walk 50 ft with 2 Turns(QC): 88 Walk 150 ft (QC): 88 Walking 10ft/uneven surface-QC: 88 Wheelchair Training Does the Pt Use a Wheelchair?: Yes Wheel 50 ft with 2 turns (QC): 1 Wheel 150 ft (QC): 1 Type of Wheelchair: Manual Stair Training 1 Step (curb) (QC): 88 4 Steps (QC): 88 12 Steps (QC): 88 Balance Picking up an Object (QC): 88 ADL-Treatment Eating (QC): 2 (Per nursing report, pt required assistance bringing food to mouth, pt able to get food from utensil and swallow. ) Oral Hygiene (QC): 1 (Based on clinical judgement and pt not following commands, pt would require total assistance with task) Shower/Bathe Self (QC): 1 (Pt required total assist with task, assist x2 in stand to wash buttocks. 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 for SAH. Cardene drip was stopped. Patient s/p angio w/ Dr. Patton for dome coiling. 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 Only the inferior part of the aneurysm was coiled, which included the likely point of rupture. Patient was somnolent, with grunting, and intermittently following commands until 1500. CT Head ordered with developing hydrocephalus. EVD was placed at bedside. 07/12: INR of 1.8 and 10 mg vitamin K was administered. 1 liter bolus of fluids administered for uptrending sodium (150 from 148). Code conversation was discussed with patient when she was noted alert and oriented. Patient stated she has an advanced directive or living well and patient's DPOA is her daughter who lives in [place], [place]. Code conversation outcome was DNAR-FI. This was confirmed during the day shift with daughter. 07/13: No acute events overnight. TCDs were attempted but not done. Patient with low urine output overnight. Na down to 141 from previous 150. 07/14: No acute events overnight, stable vasospasm watch 07/15: Stable 07/16: Stable 07/17: Stable 07/18: At 2300 patient noted to be confused overnight with urine culture +Klebsiella, started Bactrim (susceptible) 07/19: Repeat angio with Dr. Rodriguez, stable partially coiled aneurysm and [employer] OFFICER patent, small LICA dissection (confirmed on CTA) and rectal ASA given, deferred heparin gtt. Post-procedure had word finding difficulty. Blood pressures persistently elevated in 160-170s and SBP goals changed to SBP <200. Patient retaining large volume urine in the setting of UTI. Required straight cath q4h. Patient is combative and refusing PO meds. 07/20: CTA/P AM for stability with stable tract hemorrhage; started on low dose heparin drip; fevered and berger cultured; Na 133 and started on 2% gtt; triple lumen PICC placed for access 07/21: 2% drip increased to 50 mL/hr from 30, PO salt added in AM if tolerated to maintain fluid balance; UA slightly worse cont Bactrim, chen replaced for persistent large volume urinary retention, restart diltiazem gtt as patient refusing PO med 07/22: Keep chen while on 1:1 w/ severe urinary retention, attempt to transition off dilt gtt and back to PO Cardizem, heparin gtt and ASA 81, EVD in place, vasospasm watch 07/23: NS bolus for low UOP/hyponatremia, encourage PO medications, calorie count, needs to have BM 07/24: Stable. 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 Heparin gtt d/c'd at 12a in anticipation of EVD removal. CT head this AM with slight increase in ventricle size - EVD plan ongoing. Neuro exam overall improved this AM (while EVD clamped) 07/27: EVD with 77ml out in last 24h - to remain at 5cmH2O through today. Continue ASA 81mg until able to increase to 325mg daily (s/p EVD removal). Tentative plan to re-challenge EVD in ~48h (plan ongoing). 07/28: EVD clamped. Encourage PO intake. 08/01/20: Supportive care Unsure if any recovery can be made due to catastrophic stroke 08/02/20: Senior unit evaluation Behaviors? (1) Subarachnoid hemorrhage Status: Acute (2) Hypertension Status: Acute (3) Paroxysmal atrial fibrillation Status: Chronic (4) Reflex sympathetic dystrophy of both lower extremities (5) Osteoporosis (6) GERD (gastroesophageal reflux disease) (7) Neuropathy (8) Valvular heart disease (9) Anxiety (10) Thoracic compression fracture (11) Chronic back pain Status: Acute DOLORES WEEKS DO Aug 02, 2020 08:57
--- NOTE | 2020-08-02 08:59 | Physical Therapy Daily Note ---
PT Daily Note-Current Subjective Pt presents in shower chair under care of OT. Pt agrees to PT. Pt grimaces in pain but is not able to voice any compliant of location or severity of pain. Appearance At conclusion of PT treatment patient is assisted into recliner with pillows supporting right side; here she has access to tray, call button, and all needs have been met, legs elevated Mental Status Patient Orientation: Unable to Assess, [place] Transfers SCALE: Activities may be completed with or without assistive devices. 5-Yxnvvwvkob-irngkhq completes the activity by him/herself with no assistance from a helper. 5-Set-up or Clean-up Assistance-helper sets up or cleans up; patient completes activity. [place] assists only prior to or following the activity. 4-Supervision or Touching Assistance-helper provides verbal cues and/or touching/steadying and/or contact guard assistance as patient completes activity. Assistance may be provided throughout the activity or intermittently. 3-Partial/Moderate Assistance-helper does LESS THAN HALF the effort. [place] lifts, holds or supports trunk or limbs, but provides less than half the effort. 2-Substantial/Maximal Assistance-helper does MORE THAN HALF the effort. [place] lifts or holds trunk or limbs and provides more than half the effort. 6-Bjhttmxkk-lzlcyy does ALL the effort. Patient does none of the effort to complete the activity. Or, the assistance of 2 or more helpers is required for the patient to complete the activity. If activity was not attempted, code reason: 7-Patient Refused. 9-Not Applicable-not attempted and the patient did not perform the activity before the current illness, exacerbation or injury. 10-Not Attempted due to Environmental Limitations-(lack of equipment, weather restraints, etc.). 88-Not Attempted due to Medical Conditions or Safety Concerns. Sit to Stand (QC): 1 Chair/Wng-fh-Jqxsx Xfer(QC): 1 Weight Bearing Right Lower Extremity: Right Full Weight Bearing Left Lower Extremity: Left Full Weight Bearing Wheelchair Training Does the Pt Use a Wheelchair?: Yes Wheel 50 ft with 2 turns (QC): 1 Wheel 150 ft (QC): 1 Type of Wheelchair: Manual Pt uses footrest and relies on therapist to propel her. Exercises Standing frame; pt remained upright for approx 10 min. Pt attempted UE manipulation while standing. Treatments Standing balance and transfers. Assessment Current Status: Poor Progress Pt is more vocal today but unable to answer direct questions. Pt is able to bear weight in standing, but does not lean forward, use arm to push up, or any provide any assistance with standing. At end of session casey at knees and "melts" when standing. Pt holds right hip in adduction; pt appears to be in pain when passive abduction attempted. Co-treated with OT due to patient's limitations with strength, ROM, mobility, and coordination of UEs and LEs. PT focused on transfers and LE placement while OT focused on bathing, dressing, and UE manipulation. At this time patient is virtually completely non-participatory with therapy. She will occasionally assist with standing but it seems to be more of an automatic movement than actively trying to participate in her recovery. Patient will not follow directions or assist in activities. She will only say occasional words but will not answer direct questions, but will have appropriate facial expressions to conversation in the room but usually it is not helpful, like an eyeroll or glare when therapy may be discussing the next plan of action. Patient seems uninterested in participating in therapy and unconcerned about her recovery. PT Short Term Goals Short Term Goals Time Frame: Aug 08, 2020 Roll Left & Right: 2 Sit to lyin Lying to sitting on side of be: 2 Sit to stand: 2 Chair/jry-bx-qpyjl transfer: 2 Wheel 50ft w/2 turns: 3 Wheel 150 feet: 3 PT Shelter Goals Shelter Goals PT Tube [place]inder Goals Time Frame: Aug 22, 2020 Roll Left & Right (QC): 3 Sit to Lying (QC): 3 Lying-Sitting on Side/Bed(QC): 3 Sit to Stand (QC): 3 Chair/Vac-dc-Efvox Xfer(QC): 3 Toilet Transfer (QC): 3 Car Transfer (QC): 3 Does the Patient Walk: No and Walking Goal IS indicated Walk 10 feet (QC): 3 Walk 50ft with 2 Turns (QC): 88 Walk 150 ft (QC): 88 Walking 10ft on Uneven Surface: 3 1 Step (curb) (QC): 2 4 Steps (QC): 88 12 Steps (QC): 88 Picking up an Object (QC): 88 Does the Pt use WC or Scooter?: Yes Wheel 50 feet with 2 turns (QC: 4 Wheel 150 feet: 4 PT Plan Problem List Problem List: Activity Tolerance, Functional Strength, Safety, Balance, Gait, Transfer, Bed Mobility, ROM Treatment/Plan Treatment Plan: Continue Plan of Care Treatment Plan: Bed Mobility, Education, Functional Activity Nieves, Functional Strength, Group Therapy, Gait, Safety, Therapeutic Exercise, Transfers Treatment Duration: Aug 15, 2020 Frequency: At least 5 of 7 days/Wk (IRF) Estimated Hrs Per Day: 1.5 hours per day Patient and/or Family Agrees t: Yes Safety Risks/Education Patient Education: Transfer Techniques, Correct Positioning, W/C Management, Safety Issues Teaching Recipient: Patient Teaching Methods: Demonstration, Discussion Response to Teaching: Reinforcement Needed Time/GCodes Time In: 0800 Time Out: 0900 Total Billed Treatment Time: 60 Total Billed Treatment 1 visit FA 60' Co-treated with OT [id number] IAN LARKIN PT Aug 02, 2020 08:59
--- NOTE | 2020-08-02 08:59 | Occupational Ther Daily Note ---
OT Current Status-Daily Note Subjective Pt sleeping in bed. Woke to name. Pt has increased pain with movement. Pt agrees to therapy. Pt takes increased time to process questions and answer, if she does answer. Mental Status/Objective Patient Orientation: Person, Unable to Assess ADL-Treatment Max A for supine to EOB. Min A to SBA to sit EOB. Max A to transfer from bed to w/c. Pt transported via w/c to shower room by therapist. Max A transferring from w/c <--> shower seat with cutout. Pt required verbal/physical cues to wash upper body. Pt was dependent on lower body washing. Max A for upper dressing. Pt dependent on lower body dressing, RAMOS threaded pants/briefs on legs and hiked pants over hips while PT stood with pt. Pt required verbal cues to thread arms into shirt, unable to lift R arm without pain. Therapy Code Descriptions/Definitions Functional [place] Measure: 0=Not Assessed/NA 4=Minimal Assistance 1=Total Assistance 5=Supervision or Setup 2=Maximal Assistance 6=Modified [place] 3=Moderate Assistance 7=Complete IndependenceSCALE: Activities may be completed with or without assistive devices. 3-Iyzjmsmjzn-doahzfa completes the activity by him/herself with no assistance from a helper. 5-Set-up or Clean-up Assistance-helper sets up or cleans up; patient completes activity. [place] assists only prior to or following the activity. 4-Supervision or Touching Assistance-helper provides verbal cues and/or touching/steadying and/or contact guard assistance as patient completes activity. Assistance may be provided throughout the activity or intermittently. 3-Partial/Moderate Assistance-helper does LESS THAN HALF the effort. [place] lifts, holds or supports trunk or limbs, but provides less than half the effort. 2-Substantial/Maximal Assistance-helper does MORE THAN HALF the effort. [place] lifts or holds trunk or limbs and provides more than half the effort. 3-Hcbedssbq-vlxyaa does ALL the effort. Patient does none of the effort to complete the activity. Or, the assistance of 2 or more helpers is required for the patient to complete the activity. If activity was not attempted, code reason: 7-Patient Refused. 9-Not Applicable-not attempted and the patient did not perform the activity before the current illness, exacerbation or injury. 10-Not Attempted due to Environmental Limitations-(lack of equipment, weather restraints, etc.). 88-Not Attempted due to Medical Conditions or Safety Concerns. Bathing Location: Chest Shower/Bathe Self (QC): 2 Upper Body Dressing (QC): 2 Lower Body Dressing (QC): 1 On/Off Footwear: 1 Toileting Hygiene (QC): 1 (Pt incontinent of bowel. Assist to cleanse and manipulate clothing.) Toilet Transfer (QC): 1 (Assist x2 for transfer.) Other Treatment Co-treat with PT ([id number]), skills of 2 clinicians required for skilled instruction, care and mobility for dependent transfers, mobility and ADLs. PT focusing on transfers, balance during ADLs and standing. OT focusing on functional transfers, UE/LE placement during transfer/mobility and ADLs. Pt transported via w/c to therapy gym by therapist. Attempted to stand pt at parallel bars, pt closed eyes and when asked if pt understood what was being asked of her she shook her head no. Used stander to work on standing for strengthening B LE and activity tolerance. Pt worked with OT on finger grasp, manipulation, crossing midline while placing pegs into board while standing for PT. Pt had to have verbal/physical cues and guidance to get pegs out of board, into bucket on other side. Pt transported in w/c by therapist back to room and left in care of PT. Call light/phone in reach. All needs met. OT Primary Care Nurse Practitioner Goals Halfway Goals Time Frame: Aug 26, 2020 Eating (QC): 5 Oral Hygiene (QC): 4 Toileting Hygiene (QC): 3 Shower/Bathe Self (QC): 3 Upper Body Dressing (QC): 5 Lower Body Dressing (QC): 3 On/Off Footwear (QC): 3 Additional Goals: 1-Demonstrate ADL Tasks, 2-Verbalize Understanding, 3- ImproveStrength/Nieves 1=Demonstrate adherence to instructed precautions during ADL tasks. 2=Patient will verbalize/demonstrate understanding of assistive devices/modifications for ADL. 3=Patient will improve strength/tolerance for activity to enable patient to perform ADL's. OT Education/Plan Problem List/Assessment Assessment: Decreased Activ Tolerance, Decreased Safety Aware, Decreased UE Str ength, Dependent Transfers, Impaired Bed Mobility, Impaired Cognition, Impaired Coordination, Impaired Funct Balance, Impaired I ADL's, Impaired Self-Care Skills, Restricted Funct UE ROM, Visual-Perceptual Deficit Discharge Recommendations Plan/Recommendations: Continue POC Treatment Plan/Plan of Care Patient would benefit from OT for education, treatment and training to promote independence in ADL's, mobility, safety and/or upper extremity function for ADL's. Plan of Care: ADL Retraining, Functional Mobility, Group Exercise/Act as Ind, UE Funct Exercise/Act Treatment Duration: Aug 26, 2020 Frequency: At least 5 of 7 days/Wk (IRF) Estimated Hrs Per Day: 1.5 hours per day Agreement: Yes Rehab Potential: Poor Time/GCodes Start Time: 07:30 Stop Time: 08:45 Total Time Billed (hr/min): 75 Billed Treatment Time 1 visit- ADL 3 (45 mins), EX 2 (30) ANITA SANDOVAL Aug 02, 2020 08:59
--- NOTE | 2020-08-02 09:17 | NUR ---
Discussed with DPOA daughter Grace in regards to depression and interfering with her progress. Daughter Ok'd for formal psych screen at this time. Dr Nye notified.
--- NOTE | 2020-08-02 09:33 | Progress Note - Urology ---
Progress Note-Urology Progress Notes/Assess & Plan Progress/Assessment & Plan VOIDING ON HER OWN. TOLERATES MEDS WELL. Final Diagnosis URINE RETENTION TELLY SEGOVIA MD Aug 02, 2020 09:33
--- NOTE | 2020-08-02 13:33 | Speech Therapy Daily Note ---
Speech Daily Progress Note Subjective Date Seen by Provider: Aug 02, 2020 Time Seen by Provider: 00:30 Patient was sitting up in her recliner resting when I entered her room. Patient alerted when spoken to and was able to participate in therapy with frequent prompts. Objective Patient answered simple y/n questions with 60% given mod to max verbal cues. Assessment Assessment Current Status: Fair Progress Treatment Plan Continue Plan of Care Speech Short Term Goals Short Term Goals Short Term Goals 1) Patient will respond verbally/gesturally to simple y/n questions at 75% with min to mod cues. 2) Patient will respond to stimuli in her room for daily needs to be met at 75% with min to mod cues. Speech Longterm Goals Gate Operator Goals Patient will improve communication for needs to be met. Speech-Plan Patient/Family Goals Patient/Family Goals: Patient is supposed to discharge to live with her daughter. Treatment Plan Speech Therapy Treatment Plan: Continue Plan of Care Treatment Duration: Aug 12, 2020 Frequency: 4 times per week (Patient will receive skilled ST 4-5x per week) Estimated Hrs Per Day: .5 hour per day Rehab Potential: Poor Barriers to Learning: Patient's medical status, decreased ability to communicate effectively, cognitive deficits Pt/Family Agrees to Plan: Yes Safety Risks/Education Teaching Recipient: Patient Teaching Methods: Discussion Response to Teaching: Reinforcement Needed Education Topics Provided: Continued safety and use of call light Time Speech Therapy Time In: 11:00 Speech Therapy Time Out: 11:30 Total Billed Time: 30 Billed Treatment Time 1MARILU BETH[address] ST Aug 02, 2020 13:33
--- NOTE | 2020-08-02 14:59 | Physical Therapy Daily Note ---
PT Daily Note-Current Subjective Pt presents in recliner. Pt has eyes wide open while PT introduces self but closes eyes soon after. Pt is not vocal about any pain but states "shame on you" when PT apparently hurt R lower leg by touching it. Appearance At conclusion of PT treatment patient remains in recliner with access to tray and call button. Mental Status Patient Orientation: Non-Verbal/Aphasic Transfers SCALE: Activities may be completed with or without assistive devices. 3-Jrypqdlccm-pqerivf completes the activity by him/herself with no assistance from a helper. 5-Set-up or Clean-up Assistance-helper sets up or cleans up; patient completes activity. [place] assists only prior to or following the activity. 4-Supervision or Touching Assistance-helper provides verbal cues and/or touching/steadying and/or contact guard assistance as patient completes activity. Assistance may be provided throughout the activity or intermittently. 3-Partial/Moderate Assistance-helper does LESS THAN HALF the effort. [place] lifts, holds or supports trunk or limbs, but provides less than half the effort. 2-Substantial/Maximal Assistance-helper does MORE THAN HALF the effort. [place] lifts or holds trunk or limbs and provides more than half the effort. 9-Cbxxoolbv-lefivs does ALL the effort. Patient does none of the effort to complete the activity. Or, the assistance of 2 or more helpers is required for the patient to complete the activity. If activity was not attempted, code reason: 7-Patient Refused. 9-Not Applicable-not attempted and the patient did not perform the activity before the current illness, exacerbation or injury. 10-Not Attempted due to Environmental Limitations-(lack of equipment, weather restraints, etc.). 88-Not Attempted due to Medical Conditions or Safety Concerns. Weight Bearing Right Lower Extremity: Right Full Weight Bearing Left Lower Extremity: Left Full Weight Bearing Exercises Supine Ex: Ankle pumps, Heel Slides, Hip abd/add (straight leg) Supine Reps: 20 Exercises were passive Treatments PROM Assessment Current Status: Poor Progress Pt follows no instructions to participate in therapy therefore exercise motions were complete PROM. Pt seems to be resisting some motions. PT Short Term Goals Short Term Goals Time Frame: Aug 08, 2020 Roll Left & Right: 2 Sit to lyin Lying to sitting on side of be: 2 Sit to stand: 2 Chair/ydm-bg-vmfnm transfer: 2 Wheel 50ft w/2 turns: 3 Wheel 150 feet: 3 PT Mineral Surveying Technician Goals Correction Goals PT Correction Goals Time Frame: Aug 22, 2020 Roll Left & Right (QC): 3 Sit to Lying (QC): 3 Lying-Sitting on Side/Bed(QC): 3 Sit to Stand (QC): 3 Chair/Vig-pp-Ktliw Xfer(QC): 3 Toilet Transfer (QC): 3 Car Transfer (QC): 3 Does the Patient Walk: No and Walking Goal IS indicated Walk 10 feet (QC): 3 Walk 50ft with 2 Turns (QC): 88 Walk 150 ft (QC): 88 Walking 10ft on Uneven Surface: 3 1 Step (curb) (QC): 2 4 Steps (QC): 88 12 Steps (QC): 88 Picking up an Object (QC): 88 Does the Pt use WC or Scooter?: Yes Wheel 50 feet with 2 turns (QC: 4 Wheel 150 feet: 4 PT Plan Problem List Problem List: Activity Tolerance, Functional Strength, Safety, Balance, Gait, Transfer, Bed Mobility, ROM Treatment/Plan Treatment Plan: Continue Plan of Care Treatment Plan: Bed Mobility, Education, Functional Activity Nieves, Functional Strength, Group Therapy, Gait, Safety, Therapeutic Exercise, Transfers Treatment Duration: Aug 15, 2020 Frequency: At least 5 of 7 days/Wk (IRF) Estimated Hrs Per Day: 1.5 hours per day Patient and/or Family Agrees t: Yes Safety Risks/Education Patient Education: Correct Positioning, Safety Issues Teaching Recipient: Patient Teaching Methods: Demonstration, Discussion Response to Teaching: Reinforcement Needed Time/GCodes Time In: 1300 Time Out: 1315 Total Billed Treatment Time: 15 Total Billed Treatment 1 visit EX IAN BAILEY PT Aug 02, 2020 14:59
--- NOTE | 2020-08-02 15:53 | NUR ---
"RD ASSESSMENT PMHx: afib; HTN; stroke (07/11/20); chronic UTI; GERD; osteoporosis; PT INTERACTION: Pt was awake and pleasant during dietary consult for MST score. Pt states current appetite is good. Note avg PO intake <25% x2d, per chart review. Pt states following a regular diet at home, and has some issues with chewing/swallowing food. Pt states no recent issues with nausea, vomiting, constipation, or diarrhea. Note last BM was 08/01, and pt currently on bowel regimen of colace qd; senna BID; miralax BID; and bisacodyl qd, per chart review. Pt states no recent wt changes. Note recent 11# wt loss x3w, per chart review. This is significant wt loss at 9% wt loss x3w. Upon visual assessment, pt appears to be undernourished with some visible signs of muscle/fat wasting that may or may not be attributed to advanced age. Given wt hx and visual assessment, pt meets criteria for acute malnutrition per ASPEN guidelines. ABNORMAL NUTRITION-RELATED LAB VALUES LOW: Pro 6.3; HIGH: Ca 10.7; alkphos 202 Est. kcal needs: 1525 kcal | 30 kcal/kg Est. Pro needs: 61 g Pro | 1.2 g Pro/kg PES STATEMENT: Inadequate oral intake (NI-2.1) related to loss of appetite as evidenced by pt interview and avg PO intake <25% x2d. INTERVENTION: Continue with current diet order of DYS1 Pureed diet. Continue with current supplementation order of Ensure Enlive with meals TID, for increased kcal intake. Provides 350 kcal and 20 g Pro per serving. Will continue to follow and reassess as pt needs, intake, and status change. Angel Kumar, MS RD LD"
[2020-08-02 16:30] VITALS: BP 93/44
--- NOTE | 2020-08-02 16:39 | NUR ---
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 She first presented to [facility] Emergency 07/11/20 and was flown to [facility] for tertiary specialities. Additional comorbidities are, in part, HTN, cardiac disease, reflex sympathetic dystrophy of both lower extremities, osteoporosis, GERD, neuropathy, anxiety, thoracic compression fracture, chronic back pain. Patient resided home alone prior to fall, injury, SAH and hospitalization. Indications are she was mostly independent prior to this acute event. PCP: Jah Lopez MD, [facility]: Sandra Hoffman and [employer] mail in INSURANCE: Medicare, BC MCR Supplement, [employer] DME: Therapy team to determine assistive devices needed to maximize post hospital performance and safety. BARRIERS TO DISCHARGE PLANNING: Primarily distance since patient resides here, her daughter/[facility] is in [place] (4 hours) and her son is in [place]. The original discharge plan was that patient would return to the home of her daughter in [place] for continued recuperation. At present, she is dependent/max assist for transfers, she requires feeding for nutrition. Daughter is employed multimedia developer. Realistic next steps to be explored as patient progresses. CONTACTS: Grace Peacock, Daughter, DPOA HC [address] [place] [address] Stephanie Amaya [address] [place] [id number] Daughter Grace stated that if patient needs anything from her home to aid in her recuperation Monet can get it for us and bring it to hospital. Grace, as [facility], understands purpose and process of the weekly team conference and that patient will first be reviewed tomorrow, August 03, 2020.
[2020-08-02] MEDS: ENOXAPARIN 40 MG/0.4 ML (LOVENOX) SYR SC SCH (17:32)
[2020-08-02] MEDS: TAMSULOSIN 0.4 MG (FLOMAX) CAP PO SCH (17:32)
--- NOTE | 2020-08-02 20:53 | Individualized Plan of Care ---
Individualized Plan of Care Rehab Nursing IPOC Order Admission Date Jul 31, 2020 at 14:29 Current Orders Orders Admission Order(Inpt,Obs,Sdc) (07/31/20 10:35) Vital Signs: Per Unit Policy ( 08,16,00 (07/31/20 10:35) Beny Allen 09,21 (07/31/20 10:35) Sequential Compression Device Q4H (07/31/20 10:35) Physical Therapy Aide-Inpt Rehab Con (07/31/20 10:35) Rehab Nursing Orders-Ipoc (07/31/20 10:35) Physical Therapy Rehab Orders (07/31/20 10:35) Occupational Therapy Rehab Ord (07/31/20 10:35) Speech Therapy Rehab Orders (07/31/20 10:35) Cbc With Automated Diff (08/01/20 06:00) Comprehensive Metabolic Panel (08/01/20 06:00) Intake & Output 06,14,22 (07/31/20 10:35) Precautions (Aru) (07/31/20 10:35) Rehab-Intensity Of Therapy (07/31/20 10:35) Initiate Admission Nursing Pro .admission (07/31/20 10:35) Alprazolam Tablet (Xanax Tablet) (07/31/20 10:45) Calcium Carbonate Chew Tablet (Antacid C (07/31/20 10:45) Diphenhydramine Tablet (Benadryl Tablet) (07/31/20 10:45) Docusate Sodium Capsule (Colace Capsule) (07/31/20 21:00) Docusate Sodium Capsule (Colace Capsule) (07/31/20 10:45) Bisacodyl Suppository (Dulcolax Supposit (07/31/20 10:45) Lactulose Oral Solution (Enulose Oral So (07/31/20 10:45) Na Phos/Na Biphos Enema (Fleet Enema Jeffrey (07/31/20 10:45) Guaifenesin/Codeine Syrup (Robitussin Ac (07/31/20 10:45) Loperamide Tablet (Imodium Tablet) (07/31/20 10:45) Melatonin Tablet (Melatonin Tablet) (07/31/20 10:45) Polyethylene Glycol Powder Pkt (Miralax (07/31/20 21:00) Ondansetron Oral Dissolve Tab (Zofran (07/31/20 10:45) Senna S Tablet (Senokot S Tablet) (07/31/20 21:00) Initiate Admission Nursing Pro .admission (07/31/20 10:35) Follow-Up Appointment (07/31/20 11:43) Acetaminophen Tablet/Caplet (Tylenol T (07/31/20 12:30) Aspirin Enteric Coated Tablet (Ecotrin T (08/01/20 09:00) Atorvastatin Tablet (Lipitor Tablet) (08/01/20 09:00) Bisacodyl Suppository (Dulcolax Supposit (08/01/20 09:00) Diltiazem Cd 24 Hr Capsule (Cardizem Cd (08/01/20 09:00) Docusate Sodium Capsule (Colace Capsule) (08/01/20 09:00) Gabapentin Capsule/Tablet (Neurontin Cap (07/31/20 13:00) Melatonin Tablet (Melatonin Tablet) (07/31/20 21:00) Methadone Tablet (Dolophine Tablet) (08/01/20 09:00) Modafinil (Non-Formulary) (Provigil (Sto (08/01/20 09:00) Senna S Tablet (Senokot S Tablet) (07/31/20 21:00) Furosemide Tablet (Lasix Tablet) (08/01/20 07:00) (Nf) Pitavastatin Calcium (Livalo) (08/01/20 09:00) Potassium Chloride (Tablet) (K Dur Table (08/01/20 07:00) Enoxaparin Injection (Lovenox Injection) (07/31/20 16:00) Admission Arrival Bed Request (07/31/20 14:29) Temazepam Capsule (Restoril Capsule) (07/31/20 15:30) Sequential Compression Device Q4H (07/31/20 15:21) Dvt/Vte Risk - Notifiy Physici Q4H (07/31/20 15:21) Consult Cardiology (07/31/20 16:47) Consult Urology (07/31/20 16:47) Code/Resuscitation (07/31/20 16:47) Bladder Scan (07/31/20 16:47) Straight Cath (Urinary) (07/31/20 16:47) Dys1 Pureed (07/31/20 Dinner) Bedside Dysphagia Evaluation (07/31/20 19:32) Ensure Enlive (07/31/20 Dinner) Clonidine Patch (Catapres Patch) (07/31/20 20:00) Acetaminophen Suppository (Tylenol Suppo (07/31/20 20:00) Tamsulosin Capsule (Flomax Capsule) (08/01/20 18:00) Bethanechol Tablet (Urecholine Tablet) (08/01/20 16:00) Nursing Communication (Order) (08/01/20 12:32) Patient Visit (08/01/20 ) Pt Eval Moderate Complexity (08/01/20 ) Functional Activities, Ea 15 (08/01/20 ) Patient Visit (08/01/20 ) Patient Visit (08/01/20 ) Speech Sound Lang Comp (08/01/20 ) Treat. Speech/Lang/Voice (08/01/20 ) Bladder Scan (08/02/20 09:33) Patient Visit (08/02/20 ) Treat. Speech/Lang/Voice (08/02/20 ) Patient Visit (08/02/20 ) Functional Activities, Ea 15 (08/02/20 ) Patient Visit (08/02/20 ) Exercise Therap, Ea 15 Min (08/02/20 ) Rehab Nursing Orders: Ongoing Assess. of Cognitive Status, Ongoing Assess. of Function Status, Bladder Management, Bladder Scan, Bladder Training, Bowel Management, Bowel Training, Disease Management & Educaiton, DVT Prophylaxis, Fal l Prevention, Fluid/Electrolyte/Nutrition Mgmt, Infection Prevention, Medication Management & Education, Management of Risks & Complications, Management of Skin Intergrity, Nutrition Management, Pain Management, Patient/Family Support Intensity of Therapy to be met Patient to be seen: Min.3h per day/5 of 7d PT IPOC Problem List: Activity Tolerance, Functional Strength, Safety, Balance, Gait, Transfer, Bed Mobility, ROM Treatment Plan: Continue Plan of Care Bed Mobility, Education, Functional Activity Nieves, Functional Strength, Group Therapy, Gait, Safety, Therapeutic Exercise, Transfers Treatment Duration: Aug 15, 2020 Frequency: At least 5 of 7 days/Wk (IRF) Estimated Hrs Per Day: 1.5 hours per day OT IPOC Problems: Decreased Activ Tolerance, Decreased Safety Aware, Decreased UE Strength, Dependent Transfers, Impaired Bed Mobility, Impaired Cognition, Impaired Coordination, Impaired Funct Balance, Impaired I ADL's, Impaired Self- Care Skills, Restricted Funct UE ROM, Visual-Perceptual Deficit OT Treatment, Training and Edu: Yes Plan of Care: ADL Retraining, Functional Mobility, Group Exercise/Act as Ind, UE Funct Exercise/Act Treatment Duration: Aug 26, 2020 Frequency: At least 5 of 7 days/Wk (IRF) Estimated Hrs Per Day: 1.[address] IPOC Speech Therapy Treatment Plan: Continue Plan of Care Treatment Duration: Aug 12, 2020 Frequency: 4 times per week (Patient will receive skilled ST 4-5x per week) Estimated Hrs Per Day: .5 hour per day Physical Therapy Aide/Case Mgmt Physical Therapy Aide/Case Managemen: Discharge Planning Dietitian/Braided Rug Maker Dietitian/Braided Rug Maker to monitor nutritional status and make changes and/or recommendations as needed and work with speech pathology on dietary upgrades as the occur. Physician IPOC Medical Issues being managed closely and that require the 24 hour availability of a physician: Recent hemorrhagic CVA with severe deficits and incontinence of B/B will place patient at high risk of decompensation and infection risks. Medical Issues: Bowel/Bladder Function, DVT Prophylaxis, Falls Precautions, Fluid/Electrolyte/Nutrition Balance, Infection Protection, Pain Management Brief Synthesis of Preadmission Screen, Post-Admission Evaluation, and Therapy Evaluations: PT OT ST will all try to regain function in order to decrease design engineering manager burden and will help assist patient in ADL independence and ambulatory skills. Medical Prognosis: Good Anticipated Length of Stay: 7 days DOLORES WEEKS DO Aug 02, 2020 20:53
[2020-08-02] MEDS: MELATONIN 3 MG TABLET PO SCH (21:35)
[2020-08-03 05:39] VITALS: BP 110/66
[2020-08-03] MEDS: BETHANECHOL 25 MG (URECHOLINE) TAB PO SCH ×4 (06:05→20:37)
[2020-08-03] MEDS: FUROSEMIDE 40 MG (LASIX) TAB PO SCH (06:05)
[2020-08-03] MEDS: KCL 20 MEQ TAB (K-DUR) PO SCH (06:05)
--- NOTE | 2020-08-03 08:46 | Occupational Ther Daily Note ---
OT Current Status-Daily Note Subjective Pt had eyes closed and talked to RAMOS when entering room. Pt agrees to therapy. Pt verbalized pain though was not able to rate. Pt appears more alert and talkative today. Mental Status/Objective Patient Orientation: Person Attachments: Goodwin Catheter ADL-Treatment Pt declined bathing or changing clothing. Pt takes increased time to complete tasks due to slow processing verbal and physical. Pt unable to assist with rolling side to side to don briefs, dependent with donning/doffing briefs. Max A to don/doff Crocs, which pt prefers stating when she has them on she can feel where her feet are. Max A for supine to EOB. Initially max A for sitting EOB then as pt's fear and pain eased, pt able to sit with CGA. Max A with SPT from bed to w/c. Pt was transported via w/c to bathroom to complete oral care. Pt agrees to complete oral care though does not reach for toothbrush after set up. When asked if pt would brush teeth, pt stated you can do it. Pt did attempt to hold cup to bring to mouth but dropped cup then RAMOS held cup while pt drank. Pt would not hold towel to wash or dry face. When changing gown, pt required assist to lift B UE and thread B UE's. Therapy Code Descriptions/Definitions Functional [place] Measure: 0=Not Assessed/NA 4=Minimal Assistance 1=Total Assistance 5=Supervision or Setup 2=Maximal Assistance 6=Modified [place] 3=Moderate Assistance 7=Complete IndependenceSCALE: Activities may be completed with or without assistive devices. 6-Sqmhdwggdt-kjzvgrb completes the activity by him/herself with no assistance from a helper. 5-Set-up or Clean-up Assistance-helper sets up or cleans up; patient completes activity. [place] assists only prior to or following the activity. 4-Supervision or Touching Assistance-helper provides verbal cues and/or touching/steadying and/or contact guard assistance as patient completes activity. Assistance may be provided throughout the activity or intermittently. 3-Partial/Moderate Assistance-helper does LESS THAN HALF the effort. Doon lifts, holds or supports trunk or limbs, but provides less than half the effort. 2-Substantial/Maximal Assistance-helper does MORE THAN HALF the effort. [place] lifts or holds trunk or limbs and provides more than half the effort. 2-Vaehpbwnu-sqocww does ALL the effort. Patient does none of the effort to complete the activity. Or, the assistance of 2 or more helpers is required for the patient to complete the activity. If activity was not attempted, code reason: 7-Patient Refused. 9-Not Applicable-not attempted and the patient did not perform the activity before the current illness, exacerbation or injury. 10-Not Attempted due to Environmental Limitations-(lack of equipment, weather restraints, etc.). 88-Not Attempted due to Medical Conditions or Safety Concerns. Eating (QC): 1 (Per nrsg report) Oral Hygiene (QC): 1 Lower Body Dressing (QC): 1 On/Off Footwear: 1 Pt is more verbal today initially. Pt was able to answer where she lived. Could not answer rating pain, where or why she was here. As therapy progressed pt would close eyes for longer periods of time and not answer questions. Other Treatment Co- treatment with PT ([id number]) skills of two clinicians required for skilled instruction and care due to dependent transfer, mobility, ADLs. PT focusing on transfers, mobility and LE stretch/strength. OT focusing on functional transfers, B UE hand placement during transfers, R shldr stretch/ROM and ADLs. Pt propelled by therapist in w/c to therapy gym. Pt transferred from w/c to mat Max A x2 SPT. Pt required guidance with upper body when going for EOB to supine on mat. OT and PT worked with pt UE/LE stretches to address the R shoulder and R hip due to tightness. Pt resisting any movement with R shldr. Pt supine to EOB with x2 assistance. Pt transferred from EOB to w/c stand pivot transfer with Mod A. Pt was propelled by therapist in w/c to parallel bars to work on standing balance with PT, pt able to use hands to push off w/c to help stand with support from PT while standing. Pt transported back to room via w/c. PT noticed crack ling in pt's L lung when transferring, reported to nrsg and physician. After session, pt sitting up in recliner with call light/phone in reach. All needs met in room. OT Metal Machine Setter Goals Jail Goals Time Frame: Aug 26, 2020 Eating (QC): 5 Oral Hygiene (QC): 4 Toileting Hygiene (QC): 3 Shower/Bathe Self (QC): 3 Upper Body Dressing (QC): 5 Lower Body Dressing (QC): 3 On/Off Footwear (QC): 3 Additional Goals: 1-Demonstrate ADL Tasks, 2-Verbalize Understanding, 3- ImproveStrength/Nieves 1=Demonstrate adherence to instructed precautions during ADL tasks. 2=Patient will verbalize/demonstrate understanding of assistive devices/modifications for ADL. 3=Patient will improve strength/tolerance for activity to enable patient to perform ADL's. OT Education/Plan Problem List/Assessment Assessment: Decreased Activ Tolerance, Decreased Safety Aware, Decreased UE Strength, Dependent Transfers, Impaired Bed Mobility, Impaired Cognition, Impaired Coordination, Impaired Funct Balance, Impaired I ADL's, Impaired Self- Care Skills, Restricted Funct UE ROM Discharge Recommendations Plan/Recommendations: Continue POC Treatment Plan/Plan of Care Patient would benefit from OT for education, treatment and training to promote independence in ADL's, mobility, safety and/or upper extremity function for ADL's. Plan of Care: ADL Retraining, Functional Mobility, Group Exercise/Act as Ind, UE Funct Exercise/Act Treatment Duration: Aug 26, 2020 Frequency: At least 5 of 7 days/Wk (IRF) Estimated Hrs Per Day: 1.5 hours per day Agreement: Yes Rehab Potential: Poor Time/GCodes Start Time: 07:30 Stop Time: 09:00 Total Time Billed (hr/min): 90 Billed Treatment Time 1 visit-ADL 3 (45 min) EX 3 (45 min) cotreat with PT [id number], individual [id number] ANITA SANDOVAL Aug 03, 2020 08:46
--- NOTE | 2020-08-03 08:50 | PM&R Progress Note ---
Subjective HPI/CC On Admission Date Seen by Provider: Aug 03, 2020 Time Seen by Provider: 08:45 Subjective/Events-last exam 08/03/20: Pt is now a feeder Senior unit evaluation Crushing medications A two person transfer Chen was placed due to inability to urinate Increased Urecholine to 25mg before meals and at bedtime Leans over to the left side 08/02/20: Pt actually doing very well She spoke with me today Having some behaviors it appears Will do a senior behavioral unit screen Post void residual is minimal Incontinent of bowel and bladder also Pt rarely communicates Dr. Hidalgo consulted for catheter needs Incontinent of the bowel Very difficult to have any type of recovery here Conferred with RN Reviewed therapy notes Checked meds and labs Review of Systems General: Fatigue, Malaise Neurological: Weakness, Incoordination, Confusion Objective Exam Vital Signs Vital Signs Date Time Temp Pulse Resp B/P (MAP) Pulse Ox O2 Delivery O2 Flow Rate FiO2 08/04/20 05:17 36.2 80 16 116/71 (86) 97 Room Air Capillary Refill : Less Than 3 Seconds General Appearance: No Apparent Distress, WD/WN, Chronically ill, Cachetic HEENT: PERRL/EOMI, Normal ENT Inspection Neck: Supple Respiratory: Chest Non Tender, Lungs Clear, Normal Breath Sounds, No Accessory Muscle Use, No Respiratory Distress, Decreased Breath Sounds Cardiovascular: No Edema, No Gallop, No JVD, No Murmur, Normal Peripheral Pulses, Irregularly Irregular Gastrointestinal: Normal Bowel Sounds, No Organomegaly, No Pulsatile Mass, Soft Back: Normal Inspection, No CVA Tenderness, No Vertebral Tenderness Extremity: Normal Capillary Refill, Normal Inspection, No Calf Tenderness, No Pedal Edema Neurologic/Psychiatric: Alert, Depressed Affect, Disoriented, Motor Weakness, Other (minimal movement of extremities spontaneously) Skin: Normal Color, Warm/Dry Lymphatic: No Adenopathy Results/Procedures Lab Patient resulted labs reviewed. FIM Transfers Therapy Code Descriptions/Definitions Functional [place] Measure: 0=Not Assessed/NA 4=Minimal Assistance 1=Total Assistance 5=Supervision or Setup 2=Maximal Assistance 6=Modified [place] 3=Moderate Assistance 7=Complete IndependenceSCALE: Activities may be completed with or without assistive devices. 1-Bxhepfsule-lzgaibv completes the activity by him/herself with no assistance from a helper. 5-Set-up or Clean-up Assistance-helper sets up or cleans up; patient completes activity. [place] assists only prior to or following the activity. 4-Supervision or Touching Assistance-helper provides verbal cues and/or touching/steadying and/or contact guard assistance as patient completes activity. Assistance may be provided throughout the activity or intermittently. 3-Partial/Moderate Assistance-helper does LESS THAN HALF the effort. [place] lifts, holds or supports trunk or limbs, but provides less than half the effort. 2-Substantial/Maximal Assistance-helper does MORE THAN HALF the effort. [place] lifts or holds trunk or limbs and provides more than half the effort. 7-Zgbldquqw-eiiarx does ALL the effort. Patient does none of the effort to com plete the activity. Or, the assistance of 2 or more helpers is required for the patient to complete the activity. If activity was not attempted, code reason: 7-Patient Refused. 9-Not Applicable-not attempted and the patient did not perform the activity before the current illness, exacerbation or injury. 10-Not Attempted due to Environmental Limitations-(lack of equipment, weather restraints, etc.). 88-Not Attempted due to Medical Conditions or Safety Concerns. Roll Left to Right (QC): 1 Sit to Lying (QC): 1 Sit to Stand (QC): 1 Chair/Kmk-bm-Bjgom Xfer(QC): 1 Car Transfer (QC): 88 Gait Training Does the Patient Walk?: No and Walking Goal IS indicated Walk 10 feet (QC): 88 Walk 50 ft with 2 Turns(QC): 88 Walk 150 ft (QC): 88 Walking 10ft/uneven surface-QC: 88 Wheelchair Training Does the Pt Use a Wheelchair?: Yes Wheel 50 ft with 2 turns (QC): 1 Wheel 150 ft (QC): 1 Type of Wheelchair: Manual Stair Training 1 Step (curb) (QC): 88 4 Steps (QC): 88 12 Steps (QC): 88 Balance Picking up an Object (QC): 88 ADL-Treatment Eating (QC): 2 (Per nursing report, pt required assistance bringing food to mouth, pt able to get food from utensil and swallow. ) Oral Hygiene (QC): 1 (Based on clinical judgement and pt not following commands, pt would require total assistance with task) Bathing Location: Chest Shower/Bathe Self (QC): 2 Upper Body Dressing (QC): 2 Lower Body Dressing (QC): 1 On/Off Footwear (QC): 1 Toileting Hygiene (QC): 1 (Pt incontinent of bowel. 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 Cardene drip was stopped. Patient s/p angio w/ Dr. Patton for dome coiling. 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 Only the inferior part of the aneurysm was coiled, which included the likely point of rupture. Patient was somnolent, with grunting, and intermittently following commands until 1500. CT Head ordered with developing hydrocephalus. EVD was placed at bedside. 07/12: INR of 1.8 and 10 mg vitamin K was administered. 1 liter bolus of fluids administered for uptrending sodium (150 from 148). Code conversation was discussed with patient when she was noted alert and oriented. Patient stated she has an advanced directive or living well and patient's DPOA is her daughter who lives in [place], [place]. Code conversation outcome was DNAR-FI. This was confirmed during the day shift with daughter. 07/13: No acute events overnight. TCDs were attempted but not done. Patient with low urine output overnight. Na down to 141 from previous 150. 07/14: No acute events overnight, stable vasospasm watch 07/15: Stable 07/16: Stable 07/17: Stable 07/18: At 2300 patient noted to be confused overnight with urine culture +Klebsiella, started Bactrim (susceptible) 07/19: Repeat angio with Dr. 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 Post-procedure had word finding difficulty. Blood pressures persistently elevated in 160-170s and SBP goals changed to SBP <200. Patient retaining large volume urine in the setting of UTI. Required straight cath q4h. Patient is combative and refusing PO meds. 07/20: CTA/P AM for stability with stable tract hemorrhage; started on low dose heparin drip; fevered and berger cultured; Na 133 and started on 2% gtt; triple lumen PICC placed for access 07/21: 2% drip increased to 50 mL/hr from 30, PO salt added in AM if tolerated to maintain fluid balance; UA slightly worse cont Bactrim, chen replaced for persistent large volume urinary retention, restart diltiazem gtt as patient refusing PO med 07/22: Keep chen while on 1:1 w/ severe urinary retention, attempt to transition off dilt gtt and back to PO Cardizem, heparin gtt and ASA 81, EVD in place, vasospasm watch 07/23: NS bolus for low UOP/hyponatremia, encourage PO medications, calorie count, needs to have BM 07/24: Stable. CTA today to assess LICA dissection; Bactrim course completed 07/25: CHIQUI ON - EVD clamped this AM (head CT in am); decrease 1:1 replacement to 1/2:1; d/c chen; SUPERVISORY AIDE cog/speech eval ordered per rehab med recs 07/26: CHIQUI overnight. Heparin gtt d/c'd at 12a in anticipation of EVD removal. CT head this AM with slight increase in ventricle size - EVD plan ongoing. Neuro exam overall improved this AM (while EVD clamped) 07/27: EVD with 77ml out in last 24h - to remain at 5cmH2O through today. Continue ASA 81mg until able to increase to 325mg daily (s/p EVD removal). Tentative plan to re-challenge EVD in ~48h (plan ongoing). 07/28: EVD clamped. Encourage PO intake. 08/01/20: Supportive care Unsure if any recovery can be made due to catastrophic stroke 08/02/20: Senior unit evaluation Behaviors? (1) Subarachnoid hemorrhage Status: Acute (2) Hypertension Status: Acute (3) Paroxysmal atrial fibrillation Status: Chronic (4) Reflex sympathetic dystrophy of both lower extremities (5) Osteoporosis (6) GERD (gastroesophageal reflux disease) (7) Neuropathy (8) Valvular heart disease (9) Anxiety (10) Thoracic compression fracture (11) Chronic back pain Status: Acute DOLORES WEEKS DO Aug 03, 2020 08:50
[2020-08-03] MEDS: SENNA W/DOCUSATE (SENOKOT S) TABLET PO SCH ×4 (08:58→20:39)
[2020-08-03] MEDS: MODAFINIL 100 MG TAB (PROVIGIL) NON-FORMULARY PO SCH (08:58)
[2020-08-03] MEDS: GABAPENTIN 100 MG (NEURONTIN) CAP PO SCH ×3 (08:58→20:37)
[2020-08-03] MEDS: METHADONE 10 MG (DOLOPHINE) TAB PO SCH (08:58)
[2020-08-03] MEDS: ACETAMINOPHEN 325 MG TABLET PO PRN (08:59)
[2020-08-03] MEDS: dilTIAZem120 MG (CARDIZEM CD) CAP PO SCH (09:00)
[2020-08-03] MEDS: ASPIRIN E.C. 325 MG (ECOTRIN) TABLET PO SCH (09:02)
[2020-08-03] MEDS: DOCUSATE SODIUM 100 MG (COLACE) CAP PO SCH (09:44)
[2020-08-03] MEDS: polyethylene glycoL POWDER 17 GM (MIRALAX) PACK PO SCH ×2 (09:45→20:39)
--- NOTE | 2020-08-03 10:05 | Progress Note - Urology ---
Progress Note-Urology Progress Notes/Assess & Plan Progress/Assessment & Plan HAD 350CC PVR YESTERDAY, HOWARD BACK IN, AND URECHOLINE INCREASED TO 25 AC & HS, TOLERATED WELL. TOV TOMORROW Final Diagnosis URINE RETENTION TELLY SEGOVIA MD Aug 03, 2020 10:04
--- NOTE | 2020-08-03 10:46 | Speech Therapy Daily Note ---
Speech Daily Progress Note Subjective Date Seen by Provider: Aug 03, 2020 Time Seen by Provider: 00:30 Patient was resting in her recliner, napping off and on. She alerted to her name and engaged with therapy with frequent prompts. Objective Patient answered simple questions related to immediate environment and self with 40% given max visual and/or verbal cues. Patient is noted to speak nonsense jargon. Assessment Assessment Current Status: Poor Progress Treatment Plan Continue Plan of Care Speech Short Term Goals Short Term Goals Short Term Goals 1) Patient will respond verbally/gesturally to simple y/n questions at 75% with min to mod cues. 2) Patient will respond to stimuli in her room for daily needs to be met at 75% with min to mod cues. Speech Snf Goals Snf Goals Patient will improve communication for needs to be met. Speech-Plan Patient/Family Goals Patient/Family Goals: Patient's daughter is planning for her to live with her upon discharge. Treatment Plan Speech Therapy Treatment Plan: Continue Plan of Care Treatment Duration: Aug 12, 2020 Frequency: 4 times per week (Patient will receive skilled ST 4-5x per week) Estimated Hrs Per Day: .5 hour per day Rehab Potential: Poor Barriers to Learning: Patient's current medical status, age, inability to effectively communicate Pt/Family Agrees to Plan: Yes Safety Risks/Education Teaching Recipient: Patient Teaching Methods: Demonstration, Discussion Response to Teaching: Unable to Return Demonstration, Reinforcement Needed Education Topics Provided: Continued safety, use of call light Time Speech Therapy Time In: 10:00 Speech Therapy Time Out: 10:30 Total Billed Time: 30 Billed Treatment Time 1, LOYD Lopez Aug 03, 2020 10:46
--- NOTE | 2020-08-03 11:28 | Physical Therapy Daily Note ---
PT Daily Note-Current Subjective Pt agreeable. Pt did not rate pain despite questioning pt numerous times during therapy. Pt offered few verbalizations when questioned. Eyes closed when lying down or sitting. Mental Status Patient Orientation: Person Transfers SCALE: Activities may be completed with or without assistive devices. 7-Dloypjzxem-aiwxtcd completes the activity by him/herself with no assistance from a helper. 5-Set-up or Clean-up Assistance-helper sets up or cleans up; patient completes activity. [place] assists only prior to or following the activity. 4-Supervision or Touching Assistance-helper provides verbal cues and/or touching/steadying and/or contact guard assistance as patient completes activity. Assistance may be provided throughout the activity or intermittently. 3-Partial/Moderate Assistance-helper does LESS THAN HALF the effort. [place] lifts, holds or supports trunk or limbs, but provides less than half the effort. 2-Substantial/Maximal Assistance-helper does MORE THAN HALF the effort. [place] lifts or holds trunk or limbs and provides more than half the effort. 3-Jxlwsjukt-mcugqs does ALL the effort. Patient does none of the effort to complete the activity. Or, the assistance of 2 or more helpers is required for the patient to complete the activity. If activity was not attempted, code reason: 7-Patient Refused. 9-Not Applicable-not attempted and the patient did not perform the activity before the current illness, exacerbation or injury. 10-Not Attempted due to Environmental Limitations-(lack of equipment, weather restraints, etc.). 88-Not Attempted due to Medical Conditions or Safety Concerns. Weight Bearing Right Lower Extremity: Right Full Weight Bearing Left Lower Extremity: Left Full Weight Bearing Treatments Co- treatment with PT ([id number]) skills of two clinicians required for skilled instruction and care due to dependent transfer, mobility, ADLs. PT focusing on transfers, mobility and LE stretch/strength. OT focusing on functional transfers, B UE hand placement during transfers, R shldr stretch/ROM and ADLs. Pt propelled by therapist in w/c to therapy gym. Pt transferred from w/c to mat Max A x2 SPT. Pt required guidance with upper body when going for EOB to supine on mat. OT and PT worked with pt UE/LE stretches to address the R shoulder and R hip due to tightness. Pt resisting any movement with R shldr. Pt supine to EOB with x2 assistance. Pt transferred from EOB to w/c stand pivot transfer with Mod A. Pt was propelled by therapist in w/c to parallel bars to work on standing balance with PT, pt able to use hands to push off w/c to help stand with support from PT while standing. Pt stood x 2 bouts 20-30 sec each, able to weight shift in standing R-L. Knees began to buckle, pt able to step back to w/c and control descent into sitting. Pt transported back to room via w/c. PT noticed crackling in pt's L lung when transferring, reported to nrsg and physician. After session, pt sitting up in recliner with call light/phone in reach. All needs met in room. Assessment Current Status: Fair Progress Pt jojo treatment fair-well. Pt is dependent for all functional mobility, requires max vc's and max prompting throughout treatment. Pt responded appropriately to instruction but does not verbally answer questions very often. Pt appeared more alert as treatment progressed and was able to demonstrate ability to stand bearing weight with mod A for balance once fully upright. Knees quickly fatigued in standing, buckling with pt self recovering each time. Pt is limited to approximately 20-30 sec in standing. Pt has limited (R) shoulder ROM to appoximately 45 deg flexion and abd with pt resisting further ROM possibly due to arthritic shoulder. (R) hip appeared to be painful initially by pt wincing during PROM but pt relaxed and did not appear to be experiencing pain for remainder of PROM. Overall improvement today vs yesterday in participation and ability to transfer per ASHLEY. PT Short Term Goals Short Term Goals Time Frame: Aug 08, 2020 Roll Left & Right: 2 Sit to lyin Lying to sitting on side of be: 2 Sit to stand: 2 Chair/tvf-mg-wwyat transfer: 2 Wheel 50ft w/2 turns: 3 Wheel 150 feet: 3 PT Usp Goals Usp Goals PT Usp Goals Time Frame: Aug 22, 2020 Roll Left & Right (QC): 3 Sit to Lying (QC): 3 Lying-Sitting on Side/Bed(QC): 3 Sit to Stand (QC): 3 Chair/Emz-wt-Ccarn Xfer(QC): 3 Toilet Transfer (QC): 3 Car Transfer (QC): 3 Does the Patient Walk: No and Walking Goal IS indicated Walk 10 feet (QC): 3 Walk 50ft with 2 Turns (QC): 88 Walk 150 ft (QC): 88 Walking 10ft on Uneven Surface: 3 1 Step (curb) (QC): 2 4 Steps (QC): 88 12 Steps (QC): 88 Picking up an Object (QC): 88 Does the Pt use WC or Scooter?: Yes Wheel 50 feet with 2 turns (QC: 4 Wheel 150 feet: 4 PT Plan Treatment/Plan Treatment Plan: Continue Plan of Care Treatment Plan: Bed Mobility, Education, Functional Activity Nieves, Functional Strength, Group Therapy, Gait, Safety, Therapeutic Exercise, Transfers Treatment Duration: Aug 15, 2020 Frequency: At least 5 of 7 days/Wk (IRF) Estimated Hrs Per Day: 1.5 hours per day Patient and/or Family Agrees t: Yes Time/GCodes Time In: 800 Time Out: 900 Total Billed Treatment Time: 60 Total Billed Treatment 60 min Co-treatment 1, Ex x 30', FA x 30' CHARLOTTE BHATTI CPTA Aug 03, 2020 11:28
--- NOTE | 2020-08-03 12:50 | NUR ---
Patient incontinent of large, soft bowel movement. Partial Bed bath given and new brief secured.
--- NOTE | 2020-08-03 13:48 | Physician Query Clarification ---
PQ-Intro New Diagnosis Admission/Discharge Admission Date: Jul 31, 2020 at 14:29 Discharge Date: The medical record reflects the following clinical scenario: History/Risk Factors: History of fall with head trauma Clinical Findings: Subarachnoid hemorrhage from aneurysm of left posterior communicating artery Treatment: Dome coiling, admit to Rehab Question: What condition best reflects the above clinical scenario? Please document a response in the Progress Noter or Discharge Summary. 1. Subarachnoid hemorrhage-nontraumatic 2. Subarachnoid hemorrhage-traumatic, due to fall 3. Other, with explanation of the clinical findings. 4. Clinically undetermined, no explanation for the clinical findings. PHYSICIAN RESPONSE What condition reflects above: 2 Please remember a lack of response to the above will prompt a phone page by CDI /Coding staff. In responding to this query, please exercise your independent professional judgment. The purpose of this communication is to more accurately reflect the complexity of your patients condition. The fact that a question is asked does not imply that any particular answer is desired or expected. Thank you for your timely response to this clarification. Requestors name: Estephanie THIS PHYSICIAN QUERY FORM IS A PERMANENT PART OF THE MEDICAL RECORD ESTEPHANIE ADAMSON Aug 03, 2020 13:48 DOLORES WEEKS DO Aug 04, 2020 05:12
[2020-08-03] MEDS ORDERED: BISACODYL 10 MG SUPP (DULCOLAX) RC SCH (15:00)
--- NOTE | 2020-08-03 17:16 | NUR ---
CM/SS PATIENT CARE CONFERENCE Reviewed Summary with daughter/DPOA HC Grace by phone. Physician requested a senior behavioral health consult through [facility]. Grace sought clarification as to the potential benefit of this avenue. After much discussion with involved parties, including Grace as well as [facility] sales program coordinator, this care plan was suspended until further review. Patient presents with moderate to severe communication/cognitive deficits and most generally closes her eyes and will not engage. Per behavior health admission criteria, this deficit was considered a hindrance at this point regarding psychiatric diagnostics and therapy. Grace would entertain trying to get patient admitted to [facility] unit if physician(s) felt this was the most appropriate care focus. Grace indicated they allowed visitors and she continues to believe this would positively affect patient's recovery. Regarding a tentative plan for patient to return to Grace's home in [place], food writer explored adequate caregivers based on current dependent care. Grace stated she would have family who could take turns sitting with patient; however, this should be fully explored as patient progresses and her maximum level of functioning is more clear. Family education and training would be requested. Patient would need to be able to be transported 4 hours via car. Continue to follow patient progress, hopeful patient will assimilate into rehab program and begin to respond more fully if cognitively capable.
[2020-08-03] MEDS: TAMSULOSIN 0.4 MG (FLOMAX) CAP PO SCH (17:31)
[2020-08-03] MEDS: ENOXAPARIN 40 MG/0.4 ML (LOVENOX) SYR SC SCH (17:31)
[2020-08-03 17:34] VITALS: BP 128/58
--- NOTE | 2020-08-03 18:42 | NUR ---
Patient much more alert this evening. Patient able to eat a fair amount of her dinner, requiring full assistance to be fed. Patient was able to converse with several family members over facetime and with phone calls. After several phone calls, patient became tired and went back to sleep.
[2020-08-03] MEDS: MELATONIN 3 MG TABLET PO SCH (20:37)
[2020-08-04 05:17] VITALS: BP 116/71
--- NOTE | 2020-08-04 05:53 | PM&R Progress Note ---
Subjective Subjective/Events-last exam 08/03/20: Pt is now a feeder Senior unit evaluation Crushing medications A two person transfer Chen was placed due to inability to urinate Increased Urecholine to 25mg before meals and at bedtime Leans over to the left side 08/02/20: Pt actually doing very well She spoke with me today Having some behaviors it appears Will do a senior behavioral unit screen Post void residual is minimal Incontinent of bowel and bladder also Pt rarely communicates Dr. Hidalgo consulted for catheter needs Incontinent of the bowel Very difficult to have any type of recovery here Conferred with RN Reviewed therapy notes Checked meds and labs Objective Exam Vital Signs Vital Signs Date Time Temp Pulse Resp B/P (MAP) Pulse Ox O2 Delivery O2 Flow Rate FiO2 08/04/20 09:00 Room Air 08/04/20 05:17 36.2 80 16 116/71 (86) 97 Capillary Refill : Less Than 3 Seconds General Appearance: No Apparent Distress, WD/WN, Chronically ill, Cachetic HEENT: PERRL/EOMI, Normal ENT Inspection Neck: Supple Respiratory: Chest Non Tender, Lungs Clear, Normal Breath Sounds, No Accessory Muscle Use, No Respiratory Distress, Decreased Breath Sounds Cardiovascular: No Edema, No Gallop, No JVD, No Murmur, Normal Peripheral Pulses, Irregularly Irregular Gastrointestinal: Normal Bowel Sounds, No Organomegaly, No Pulsatile Mass, Soft Back: Normal Inspection, No CVA Tenderness, No Vertebral Tenderness Extremity: Normal Capillary Refill, Normal Inspection, No Calf Tenderness, No Pedal Edema Neurologic/Psychiatric: Alert, Depressed Affect, Disoriented, Motor Weakness, Other (minimal movement of extremities spontaneously) Skin: Normal Color, Warm/Dry Lymphatic: No Adenopathy Results/Procedures Lab Patient resulted labs reviewed. FIM Transfers Therapy Code Descriptions/Definitions Functional [place] Measure: 0=Not Assessed/NA 4=Minimal Assistance 1=Total Assistance 5=Supervision or Setup 2=Maximal Assistance 6=Modified [place] 3=Moderate Assistance 7=Complete IndependenceSCALE: Activities may be completed with or without assistive devices. 4-Kbsdltlydg-hgmaebq completes the activity by him/herself with no assistance from a helper. 5-Set-up or Clean-up Assistance-helper sets up or cleans up; patient completes activity. [place] assists only prior to or following the activity. 4-Supervision or Touching Assistance-helper provides verbal cues and/or touching/steadying and/or contact guard assistance as patient completes activity. Assistance may be provided throughout the activity or intermittently. 3-Partial/Moderate Assistance-helper does LESS THAN HALF the effort. [place] lifts, holds or supports trunk or limbs, but provides less than half the effort. 2-Substantial/Maximal Assistance-helper does MORE THAN HALF the effort. [place] lifts or holds trunk or limbs and provides more than half the effort. 3-Kwoxtsfzu-etppki does ALL the effort. Patient does none of the effort to complete the activity. Or, the assistance of 2 or more helpers is required for the patient to complete the activity. If activity was not attempted, code reason: 7-Patient Refused. 9-Not Applicable-not attempted and the patient did not perform the activity before the current illness, exacerbation or injury. 10-Not Attempted due to Environmental Limitations-(lack of equipment, weather restraints, etc.). 88-Not Attempted due to Medical Conditions or Safety Concerns. Roll Left to Right (QC): 1 Sit to Lying (QC): 1 Sit to Stand (QC): 1 Chair/Mxg-tl-Nbjlp Xfer(QC): 1 Car Transfer (QC): 88 Gait Training Does the Patient Walk?: No and Walking Goal IS indicated Walk 10 feet (QC): 88 Walk 50 ft with 2 Turns(QC): 88 Walk 150 ft (QC): 88 Walking 10ft/uneven surface-QC: 88 Wheelchair Training Does the Pt Use a Wheelchair?: Yes Wheel 50 ft with 2 turns (QC): 1 Wheel 150 ft (QC): 1 Type of Wheelchair: Manual Stair Training 1 Step (curb) (QC): 88 4 Steps (QC): 88 12 Steps (QC): 88 Balance Picking up an Object (QC): 88 ADL-Treatment Eating (QC): 1 (Per nrsg report) Oral Hygiene (QC): 1 Bathing Location: Chest Shower/Bathe Self (QC): 2 Upper Body Dressing (QC): 2 Lower Body Dressing (QC): 1 On/Off Footwear (QC): 1 Toileting Hygiene (QC): 1 (Pt incontinent of bowel. 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 Cardene drip was stopped. Patient s/p angio w/ Dr. Patton for dome coiling. 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 Only the inferior part of the aneurysm was coiled, which included the likely point of rupture. Patient was somnolent, with grunting, and intermittently following commands until 1500. CT Head ordered with developing hydrocephalus. EVD was placed at bedside. 07/12: INR of 1.8 and 10 mg vitamin K was administered. 1 liter bolus of fluids administered for uptrending sodium (150 from 148). Code conversation was discu ssed with patient when she was noted alert and oriented. Patient stated she has an advanced directive or living well and patient's DPOA is her daughter who lives in [place], [place]. Code conversation outcome was DNAR-FI. This was confirmed during the day shift with daughter. 07/13: No acute events overnight. TCDs were attempted but not done. Patient with low urine output overnight. Na down to 141 from previous 150. 07/14: No acute events overnight, stable vasospasm watch 07/15: Stable 07/16: Stable 07/17: Stable 07/18: At 2300 patient noted to be confused overnight with urine culture +Klebsiella, started Bactrim (susceptible) 07/19: Repeat angio with Dr. 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 Post-procedure had word finding difficulty. Blood pressures persistently elevated in 160-170s and SBP goals changed to SBP <200. Patient retaining large volume urine in the setting of UTI. Required straight ca th q4h. Patient is combative and refusing PO meds. 07/20: CTA/P AM for stability with stable tract hemorrhage; started on low dose heparin drip; fevered and berger cultured; Na 133 and started on 2% gtt; triple lumen PICC placed for access 07/21: 2% drip increased to 50 mL/hr from 30, PO salt added in AM if tolerated to maintain fluid balance; UA slightly worse cont Bactrim, chen replaced for persistent large volume urinary retention, restart diltiazem gtt as patient refusing PO med 07/22: Keep chen while on 1:1 w/ severe urinary retention, attempt to transition off dilt gtt and back to PO Cardizem, heparin gtt and ASA 81, EVD in place, vasospasm watch 07/23: NS bolus for low UOP/hyponatremia, encourage PO medications, calorie count, needs to have BM 07/24: Stable. CTA today to assess LICA dissection; Bactrim course completed 07/25: CHIQUI ON - EVD clamped this AM (head CT in am); decrease 1:1 replacement to 1/2:1; d/c chen; APPEALS AND GENERALIST CLERK cog/speech eval ordered per rehab med recs 07/26: CHIQUI overnight. Heparin gtt d/c'd at 12a in anticipation of EVD removal. CT head this AM with slight increase in ventricle size - EVD plan ongoing. Neuro exam overall improved this AM (while EVD clamped) 07/27: EVD with 77ml out in last 24h - to remain at 5cmH2O through today. Delfino nue ASA 81mg until able to increase to 325mg daily (s/p EVD removal). Tentative plan to re-challenge EVD in ~48h (plan ongoing). 07/28: EVD clamped. Encourage PO intake. 08/01/20: Supportive care Unsure if any recovery can be made due to catastrophic stroke 08/02/20: Senior unit evaluation Behaviors? (1) Subarachnoid hemorrhage Status: Acute (2) Hypertension Status: Acute (3) Paroxysmal atrial fibrillation Status: Chronic (4) Reflex sympathetic dystrophy of both lower extremities (5) Osteoporosis (6) GERD (gastroesophageal reflux disease) (7) Neuropathy (8) Valvular heart disease (9) Anxiety (10) Thoracic compression fracture (11) Chronic back pain Status: Acute DOLORES WEEKS DO Aug 04, 2020 05:53
[2020-08-04] MEDS: KCL 20 MEQ TAB (K-DUR) PO SCH (06:11)
[2020-08-04] MEDS: FUROSEMIDE 40 MG (LASIX) TAB PO SCH (06:12)
[2020-08-04] MEDS: BETHANECHOL 25 MG (URECHOLINE) TAB PO SCH (06:12)
[2020-08-04] MEDS: METHADONE 10 MG (DOLOPHINE) TAB PO SCH (07:27)
[2020-08-04] MEDS: GABAPENTIN 100 MG (NEURONTIN) CAP PO SCH (07:27)
[2020-08-04] MEDS: ASPIRIN E.C. 325 MG (ECOTRIN) TABLET PO SCH (07:28)
[2020-08-04] MEDS: dilTIAZem120 MG (CARDIZEM CD) CAP PO SCH (07:28)
[2020-08-04] MEDS: MODAFINIL 100 MG TAB (PROVIGIL) NON-FORMULARY PO SCH (07:28)
[2020-08-04] MEDS: ACETAMINOPHEN 325 MG TABLET PO PRN (07:29)
[2020-08-04] MEDS: polyethylene glycoL POWDER 17 GM (MIRALAX) PACK PO SCH (08:52)
[2020-08-04] MEDS: SENNA W/DOCUSATE (SENOKOT S) TABLET PO SCH ×2 (08:52)
[2020-08-04] MEDS: DOCUSATE SODIUM 100 MG (COLACE) CAP PO SCH (08:52)
--- NOTE | 2020-08-04 09:01 | Occupational Ther Daily Note ---
OT Current Status-Daily Note Subjective Pt lying in bed, difficult to rouse. Pt had reported to [facility] that she had a headache. Nrsg brought meds for pt. RAMOS held off of beginning treatment for 15 min. Pt able to acknowledge name though does not orient to time, place or situation. Pt has sporadic lucid moments, a small part of therapy sessions pt will have eyes open and respond to therapists though most of sessions are eyes closed and no response. Mental Status/Objective Patient Orientation: Person, Confused, Unable to Assess, Non-Verbal/Aphasic Attachments: IV (midline) ADL-Treatment Pt required max A x1 to roll side to side while assist x1 to cleanse and don brief. Pt incontinent of bowel and has Goodwin catheter. Completed bed bath, attempted to get pt to wash face and chest, pt only held onto cloth. Pt dependent for sponge bath, donning/doffing hospital gown and brief. Attempted to have pt brush teeth. Pt held onto toothbrush and brought to mouth prior to toothpaste being applied. When toothpaste was applied pt would not hold onto toothbrush and brush teeth, RAMOS completed oral care. Pt dependent with w/c mobility. Therapy Code Descriptions/Definitions Functional [place] Measure: 0=Not Assessed/NA 4=Minimal Assistance 1=Total Assistance 5=Supervision or Setup 2=Maximal Assistance 6=Modified [place] 3=Moderate Assistance 7=Complete IndependenceSCALE: Activities may be completed with or without assistive devices. 7-Yeauvbaqtt-bjlvoxo completes the activity by him/herself with no assistance from a helper. 5-Set-up or Clean-up Assistance-helper sets up or cleans up; patient completes activity. [place] assists only prior to or following the activity. 4-Supervision or Touching Assistance-helper provides verbal cues and/or touching/steadying and/or contact guard assistance as patient completes activity. Assistance may be provided throughout the activity or intermittently. 3-Partial/Moderate Assistance-helper does LESS THAN HALF the effort. [place] lifts, holds or supports trunk or limbs, but provides less than half the effort. 2-Substantial/Maximal Assistance-helper does MORE THAN HALF the effort. [place] lifts or holds trunk or limbs and provides more than half the effort. 5-Ivvfrgltq-laivzb does ALL the effort. Patient does none of the effort to complete the activity. Or, the assistance of 2 or more helpers is required for the patient to complete the activity. If activity was not attempted, code reason: 7-Patient Refused. 9-Not Applicable-not attempted and the patient did not perform the activity before the current illness, exacerbation or injury. 10-Not Attempted due to Environmental Limitations-(lack of equipment, weather restraints, etc.). 88-Not Attempted due to Medical Conditions or Safety Concerns. Eating (QC): 1 Oral Hygiene (QC): 1 Shower/Bathe Self (QC): 1 Upper Body Dressing (QC): 1 Lower Body Dressing (QC): 1 On/Off Footwear: 1 Toileting Hygiene (QC): 1 Toilet Transfer (QC): 1 Other Treatment Co- treatment with PT ([id number]) skills of two clinicians required for skilled instruction and care due to dependent transfer, mobility, ADLs. PT focused on transfers, B LE strengthening and standing. OT focused on ADLs, functional transfers and B UE placement during standing. Pt propelled by w/c to therapy gym by therapist. Pt worked on parallel bars to work on standing balance, endurance. Increased time to complete tasks with pt due to pt's slow sequencing and activity tolerance. Pt lying in bed with call light/phone in reach. All needs met in room. Safety measures in place. OT Marble Installation Helper Goals [place]ble Installation Helper Goals Time Frame: Aug 26, 2020 Eating (QC): 5 (notmet) Oral Hygiene (QC): 4 (notmet) Toileting Hygiene (QC): 3 (notmet) Shower/Bathe Self (QC): 3 (notmet) Upper Body Dressing (QC): 5 (notem) Lower Body Dressing (QC): 3 (not met) On/Off Footwear (QC): 3 (not met) Additional Goals: 1-Demonstrate ADL Tasks, 2-Verbalize Understanding, 3- ImproveStrength/Nieves 1=Demonstrate adherence to instructed precautions during ADL tasks. 2=Patient will verbalize/demonstrate understanding of assistive devic es/modifications for ADL. 3=Patient will improve strength/tolerance for activity to enable patient to perform ADL's. OT Education/Plan Discharge Recommendations Plan/Recommendations: Continue POC Treatment Plan/Plan of Care Patient would benefit from OT for education, treatment and training to promote independence in ADL's, mobility, safety and/or upper extremity function for ADL's. Plan of Care: ADL Retraining, Functional Mobility, Group Exercise/Act as Ind, UE Funct Exercise/Act Treatment Duration: Aug 26, 2020 Frequency: At least 5 of 7 days/Wk (IRF) Estimated Hrs Per Day: 1.5 hours per day Agreement: Yes Rehab Potential: Poor Time/GCodes Start Time: 07:45 Stop Time: 09:00 Total Time Billed (hr/min): 75 Billed Treatment Time 1 visit-ADL 2 (30 min) FA 3 (45 min) co-treat with PT 60 min([id number]), individual 15 min ([id number]) ANITA SANDOVAL Aug 04, 2020 09:01
--- NOTE | 2020-08-04 09:07 | Physical Therapy Daily Note ---
PT Daily Note-Current Subjective Pt laying Supine in bed as OT is working to get pt sitting upright. Pt agrees to PT/OT co-treat. Pain Comment: Generalized pain with movement but doesn't rate. Mental Status Patient Orientation: Person, Confused Attachments: Goodwin Catheter Transfers SCALE: Activities may be completed with or without assistive devices. 3-Qkpmjvrkgb-jcfcjoq completes the activity by him/herself with no assistance from a helper. 5-Set-up or Clean-up Assistance-helper sets up or cleans up; patient completes activity. [place] assists only prior to or following the activity. 4-Supervision or Touching Assistance-helper provides verbal cues and/or touching/steadying and/or contact guard assistance as patient completes activity. Assistance may be provided throughout the activity or intermittently. 3-Partial/Moderate Assistance-helper does LESS THAN HALF the effort. [place] lifts, holds or supports trunk or limbs, but provides less than half the effort. 2-Substantial/Maximal Assistance-helper does MORE THAN HALF the effort. [place] lifts or holds trunk or limbs and provides more than half the effort. 1-Gdtsupejv-nitptx does ALL the effort. Patient does none of the effort to complete the activity. Or, the assistance of 2 or more helpers is required for the patient to complete the activity. If activity was not attempted, code reason: 7-Patient Refused. 9-Not Applicable-not attempted and the patient did not perform the activity before the current illness, exacerbation or injury. 10-Not Attempted due to Environmental Limitations-(lack of equipment, weather restraints, etc.). 88-Not Attempted due to Medical Conditions or Safety Concerns. Sit to Lying (QC): 2 Lying to Sitting/Side of Bed(Q: 2 Sit to Stand (QC): 2 Chair/[place]ag[place] Xfer(QC): 2 Weight Bearing Right Lower Extremity: Right Full Weight Bearing Left Lower Extremity: Left Full Weight Bearing Exercises Seated Therapy Exercises: Sit to stand Treatments Co- treatment with PT ([id number]) skills of two clinicians required for skilled instruction and care due to dependent transfer, mobility, ADLs. Pt propelled by w/c to therapy gym by therapist. Pt worked on parallel bars to work on standing balance, endurance. Assessment Current Status: Fair Progress Pt continues to have difficulty keeping eyes open during tx. Pt takes TC & VC to complete tasks. PT Short Term Goals Short Term Goals Time Frame: Aug 08, 2020 Roll Left & Right: 2 Sit to lyin Lying to sitting on side of be: 2 Sit to stand: 2 Chair/gjq-sl-zxqbl transfer: 2 Wheel 50ft w/2 turns: 3 Wheel 150 feet: 3 PT [employer] Vis[employer] Goals Snf Goals PT Snf Goals Time Frame: Aug 22, 2020 Roll Left & Right (QC): 3 Sit to Lying (QC): 3 Lying-Sitting on Side/Bed(QC): 3 Sit to Stand (QC): 3 Chair/Mbe-bq-Ayett Xfer(QC): 3 Toilet Transfer (QC): 3 Car Transfer (QC): 3 Does the Patient Walk: No and Walking Goal IS indicated Walk 10 feet (QC): 3 Walk 50ft with 2 Turns (QC): 88 Walk 150 ft (QC): 88 Walking 10ft on Uneven Surface: 3 1 Step (curb) (QC): 2 4 Steps (QC): 88 12 Steps (QC): 88 Picking up an Object (QC): 88 Does the Pt use WC or Scooter?: Yes Wheel 50 feet with 2 turns (QC: 4 Wheel 150 feet: 4 PT Plan Problem List Problem List: Activity Tolerance, Functional Strength, Safety, Balance, Transfer Treatment/Plan Treatment Plan: Continue Plan of Care Treatment Plan: Bed Mobility, Education, Functional Activity [place], Functional Strength, Group Therapy, Gait, Safety, Therapeutic Exercise, Transfers Treatment Duration: Aug 15, 2020 Frequency: At least 5 of 7 days/Wk (IRF) Estimated Hrs Per Day: 1.5 hours per day Patient and/or Family Agrees t: Yes Safety Risks/Education Patient Education: Transfer Techniques, Correct Positioning, Safety Issues Teaching Recipient: Patient Teaching Methods: Discussion Response to Teaching: Reinforcement Needed Time/GCodes Time In: 800 Time Out: 900 Total Billed Treatment Time: 60 Total Billed Treatment 1, EX (20m) & FA x3 (40m) Co-treat w/OT 60m MEGAN BANUELSO PTA Aug 04, 2020 09:07
--- NOTE | 2020-08-04 10:03 | Progress Note - Urology ---
Progress Note-Urology Progress Notes/Assess & Plan Progress/Assessment & Plan TOV TODAY Final Diagnosis URINE RETENTION TELLY SEGOVIA MD Aug 04, 2020 10:03
--- NOTE | 2020-08-04 11:16 | Speech Therapy Daily Note ---
Speech Daily Progress Note Subjective Date Seen by Provider: Aug 04, 2020 Time Seen by Provider: 00:30 Patient was resting in her bed, alerted to name but was difficult to engage today. Objective Patient answered y/n questions at 40% with maximum cues. Assessment Assessment Current Status: Poor Progress Treatment Plan Continue Plan of Care Speech Short Term Goals Short Term Goals Short Term Goals 1) Patient will respond verbally/gesturally to simple y/n questions at 75% with min to mod cues. 2) Patient will respond to stimuli in her room for daily needs to be met at 75% with min to mod cues. Speech Psychiatric Np Goals Long-Term Goals Patient will improve communication for needs to be met. Speech-Plan Patient/Family Goals Patient/Family Goals: Patient's family plans to have her move in with them upon discharge. Treatment Plan Speech Therapy Treatment Plan: Continue Plan of Care Treatment Duration: Aug 12, 2020 Frequency: 4 times per week (Patient will receive skilled ST 4-5x per week) Estimated Hrs Per Day: .5 hour per day Rehab Potential: Poor Barriers to Learning: Patient's recent decline in health Pt/Family Agrees to Plan: Yes Safety Risks/Education Teaching Recipient: Patient Teaching Methods: Discussion Response to Teaching: Reinforcement Needed Education Topics Provided: Communication of wants/needs Time Speech Therapy Time In: 10:00 Speech Therapy Time Out: 10:30 Total Billed Time: 30 Billed Treatment Time MARILU Fenton [facility] Aug 04, 2020 11:16
--- NOTE | 2020-08-04 12:00 | NUR ---
This nurse entered patient room and found patient with head tilted back and visible saliva at the back of her throat. Patient has shallow breathing. O2 saturations at 80% on room air and dropping. Oxygen applied. Patient able to reach 90% saturations on 5L of 02. Patient responds only to painful stimuli. BP is 90/53. Physician is on floor, and alerted to significant change in patient condition. Patient's daughter, Grace notified by physician of change of condition. Choice made to sent patient to [address] [place] [address] for Comfort Care. Report given to WESLY Crouch.
--- NOTE | 2020-08-04 12:28 | Discharge Summary ---
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 Cardene drip was stopped. Patient s/p angio w/ Dr. Patton for dome coiling. 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 Only the inferior part of the aneurysm was coiled, which included the likely point of rupture. Patient was somnolent, with grunting, and intermittently following commands until 1500. CT Head ordered with developing hydrocephalus. EVD was placed at bedside. 07/12: INR of 1.8 and 10 mg vitamin K was administered. 1 liter bolus of fluids administered for uptrending sodium (150 from 148). Code conversation was discussed with patient when she was noted alert and oriented. Patient stated she has an advanced directive or living well and patient's DPOA is her daughter who lives in [place], [place]. Code conversation outcome was DNAR-FI. This was confirmed during the day shift with daughter. 07/13: No acute events overnight. TCDs were attempted but not done. Patient with low urine output overnight. Na down to 141 from previous 150. 07/14: No acute events overnight, stable vasospasm watch 16: Stable 17: Stable 07/17: Stable 07/18: At 2300 patient noted to be confused overnight with urine culture +Klebsiella, started Bactrim (susceptible) 07/19: Repeat angio with Dr. Rodriguez, stable partially coiled aneurysm and COMPETENCY EVALUATED NURSE AIDE patent, small LICA dissection (confirmed on CTA) and rectal ASA given, deferred heparin gtt. Post-procedure had word finding difficulty. Blood pressures persistently elevated in 160-170s and SBP goals changed to SBP <200. Patient retaining large volume urine in the setting of UTI. Required straight cath q4h. Patient is combative and refusing PO meds. 07/20: CTA/P AM for stability with stable tract hemorrhage; started on low dose heparin drip; fevered and berger cultured; Na 133 and started on 2% gtt; triple lumen PICC placed for access 07/21: 2% drip increased to 50 mL/hr from 30, PO salt added in AM if tolerated to maintain fluid balance; UA slightly worse cont Bactrim, chen replaced for persistent large volume urinary retention, restart diltiazem gtt as patient refusing PO med 07/22: Keep chen while on 1:1 w/ severe urinary retention, attempt to transition off dilt gtt and back to PO Cardizem, heparin gtt and ASA 81, EVD in place, vasospasm watch 07/23: NS bolus for low UOP/hyponatremia, encourage PO medications, calorie count, needs to have BM 07/24: Stable. CTA today to assess LICA dissection; Bactrim course completed 07/25: CHIQUI ON - EVD clamped this AM (head CT in am); decrease 1:1 replacement to 1/2:1; d/c chen; SUPERVISOR BINDERY cog/speech eval ordered per rehab med recs 07/26: CHIQUI overnight. Heparin gtt d/c'd at 12a in anticipation of EVD removal. CT head this AM with slight increase in ventricle size - EVD plan ongoing. Neuro exam overall improved this AM (while EVD clamped) 07/27: EVD with 77ml out in last 24h - to remain at 5cmH2O through today. Continue ASA 81mg until able to increase to 325mg daily (s/p EVD removal). Tentative plan to re-challenge EVD in ~48h (plan ongoing). 07/28: EVD clamped. Encourage PO intake. 08/01/20: Supportive care Unsure if any recovery can be made due to catastrophic stroke 08/02/20: Senior unit evaluation Behaviors? (1) Subarachnoid hemorrhage Status: Acute (2) Hypertension Status: Acute (3) Paroxysmal atrial fibrillation Status: Chronic (4) Reflex sympathetic dystrophy of both lower extremities (5) Osteoporosis (6) GERD (gastroesophageal reflux disease) (7) Neuropathy (8) Valvular heart disease (9) Anxiety (10) Thoracic compression fracture (11) Chronic back pain Status: Acute Discharge Summary Discharge Physical Examination Allergies: Coded Allergies: Penicillins (Verified Allergy, Unknown, 07/31/20) hydrochlorothiazide (Verified Allergy, Unknown, 07/31/20) metoprolol (Unverified Allergy, Unknown, 04/10/18) Tetracyclines (Verified Adverse Reaction, Intermediate, SEVERE HEARTBURN, 04/10/18) Severe Heartburn amiodarone (Verified Adverse Reaction, Intermediate, MADE HER COLD, 04/10/18) clindamycin (Verified Adverse Reaction, Mild, HEARTBURN, 04/10/18) Vitals & I&Os Vital Signs Date Time Temp Pulse Resp B/P (MAP) Pulse Ox O2 Delivery O2 Flow Rate FiO2 08/04/20 09:00 Room Air 08/04/20 05:17 36.2 80 16 116/71 (86) 97 General Appearance: Other (comatose) Hospital Course Was the Problem List Reviewed?: Yes Standard course after admitted for hemorrhagic CVA residual. SHe had difficulty with participation with therapies due to severe compromise in her function and capabilities. Ultimately she was found to be unresponsive with sonorous breathing and daughter was called and DNR maintained and comfort care protocol was initiated on 4th floor. Labs (last 24 hrs) Laboratory Tests 08/01/20 05:35: White Blood Count 6.4, Red Blood Count 3.48L, Hemoglobin 11.6, Hematocrit 36, Mean Corpuscular Volume 102H, Mean Corpuscular Hemoglobin 33, Mean Corpuscular Hemoglobin Concent 33, Red Cell Distribution Width 13.4, Platelet Count 401H, Mean Platelet Volume 9.0, Immature Granulocyte % (Auto) 1, Neutrophils (%) (Auto) 57, Lymphocytes (%) (Auto) 24, Monocytes (%) (Auto) 13H, Eosinophils (%) (Auto) 5, Basophils (%) (Auto) 1, Neutrophils # (Auto) 3.6, Lymphocytes # (Auto) 1.5, Monocytes # (Auto) 0.9, Eosinophils # (Auto) 0.3, Basophils # (Auto) 0.1, Immature Granulocyte # (Auto) 0.0, Sodium Level 145, Potassium Level 4.0, Chloride Level 106, Carbon Dioxide Level 27, Anion Gap 12, Blood Urea Nitrogen 18, Creatinine 0.94, Estimat Glomerular Filtration Rate 57, BUN/Creatinine Ratio 19, Glucose Level 91, Calcium Level 10.7H, Corrected Calcium 11.3H, Total Bilirubin 0.4, Aspartate Amino Transf (AST/SGOT) 28, Alanine Aminotransferase (ALT/SGPT) 29, Alkaline Phosphatase 202H, Total Protein 6.3L, Albumin 3.3 Pending Labs Laboratory Tests 08/01/20 05:35: White Blood Count 6.4, Red Blood Count 3.48, Hemoglobin 11.6, Hematocrit 36, Mean Corpuscular Volume 102, Mean Corpuscular Hemoglobin 33, Mean Corpuscular Hemoglobin Concent 33, Red Cell Distribution Width 13.4, Platelet Count 401, Mean Platelet Volume 9.0, Immature Granulocyte % (Auto) 1, Neutrophils (%) (Auto) 57, Lymphocytes (%) (Auto) 24, Monocytes (%) (Auto) 13, Eosinophils (%) (Auto) 5, Basophils (%) (Auto) 1, Neutrophils # (Auto) 3.6, Lymphocytes # (Auto) 1.5, Monocytes # (Auto) 0.9, Eosinophils # (Auto) 0.3, Basophils # (Auto) 0.1, Immature Granulocyte # (Auto) 0.0, Sodium Level 145, Potassium Level 4.0, Chloride Level 106, Carbon Dioxide Level 27, Anion Gap 12, Blood Urea Nitrogen 18, Creatinine 0.94, Estimat Glomerular Filtration Rate 57, BUN/Creatinine Ratio 19, Glucose Level 91, Calcium Level 10.7, Corrected Calcium 11.3, Total Bilirubin 0.4, Aspartate Amino Transf (AST/SGOT) 28, Alanine Aminotransferase (ALT/SGPT) 29, Alkaline Phosphatase 202, Total Protein 6.3, Albumin 3.3 Discharge Home Medications: Active Scripts Active Reported [HEPARIN 5,000U/0.5mL] 0.5 Ml SQ Q8H Triazolam 0.25 Mg Tablet 0.25 Mg PO HS PRN Potassium Chloride 20 Meq Tablet.er 20 Meq PO DAILY Livalo (Pitavastatin Calcium) 2 Mg Tablet 2 Mg PO DAILY Methadone HCl 10 Mg Tablet 10 Mg PO DAILY 7 Days Gabapentin 100 Mg Capsule 100 Mg PO TID Lasix (Furosemide) 80 Mg Tablet 40 Mg PO DAILY Colace (Docusate Sodium) 100 Mg Capsule 100 Mg PO DAILY Cardizem Cd (Diltiazem HCl) 120 Mg Cap.er.24h 120 Mg PO DAILY Atorvastatin Calcium 20 Mg Tablet 20 Mg PO DAILY Senna-S 8.6-50 mg Tablet (Sennosides/Docusate Sodium) 1 Each Tablet 2 Each PO BID Modafinil 100 Mg Tablet 100 Mg PO DAILY Melatonin 3 Mg Tablet 3 Mg PO HS Dulcolax (Bisacodyl) 10 Mg Supp.rect 10 Mg RC DAILY Aspirin EC (Aspirin) 325 Mg Tablet.dr 325 Mg PO DAILY Tylenol (Acetaminophen) 325 Mg Tablet 650 Mg PO Q4H PRN Instructions to patient/family Please see electronic discharge instructions given to patient. Diagnosis/Problems Diagnosis/Problems (1) Subarachnoid hemorrhage Status: Acute (2) Hypertension Status: Acute (3) Paroxysmal atrial fibrillation Status: Chronic (4) Reflex sympathetic dystrophy of both lower extremities (5) Osteoporosis (6) GERD (gastroesophageal reflux disease) (7) Neuropathy (8) Valvular heart disease (9) Anxiety (10) Thoracic compression fracture (11) Chronic back pain Status: Acute Clinical Quality Measures DVT/VTE Risk/Contraindication: Risk Factor Score Per Nursin RFS Level Per Nursing on Admit: 4+=Very High DOLORES WEEKS DO Aug 04, 2020 12:28
--- NOTE | 2020-08-04 13:05 | Physical Therapy Progress Note ---
Therapy Progress Note Pt will not be seen this afternoon due to pt being transferred to Medical/Surgical Floor. Pt has declined and needs increased medical attention. MEGAN BANUELOS PTA Aug 04, 2020 13:05
--- NOTE | 2020-08-05 08:14 | Therapy Team Discharge Summary ---
Therapy Discharge Summary Discharge Recommendations Date of Discharge Aug 04, 2020 at 12:45 Occupational Therapy Pt admitted to ARU with dx of SAH. PLOF of pt is unknown due to pt being nonve rbal on evaluation. At evaluation, pt required total assistance with all ADLs. OT txs focused on increasing independence and safety with ADLs, functional mobility/transfers, and functional standing. During one OT tx, pt was able to complete showering and upper body dressing with Max A but other ADLs remain total assistance. On 08/04/2020 pt transferred to 4th medical/surgical floor due to increased medical complexity and increased medical needs. Pt did not meet any goals while on ARU. Pt discharged from ARU on this date, thus d/c from OT at this time. Decreased Activ Tolerance, Decreased Safety Aware, Decreased UE Strength, Dependent Transfers, Impaired Bed Mobility, Impaired Cognition, Impaired Funct Balance, Impaired I ADL's, Impaired Self-Care Skills, Restricted Funct UE ROM PT Photography Intern Goals Skilled Nursing Goals PT Skilled Nursing Goals Time Frame: Aug 22, 2020 Roll Left to Right (QC): 3 Sit to Lying (QC): 3 Lying-Sitting on Side/Bed(QC): 3 Sit to Stand (QC): 3 Chair/Qtq-rc-Soltn Xfer(QC): 3 Car Transfer (QC): 3 Does the Patient Walk: No and Walking Goal IS indicated Walk 10 feet (QC): 3 Walk 10ft-Uneven Surface(QC): 3 Walk 50ft with 2 Turns (QC): 88 Walk 150 ft (QC): 88 Does the Pt use WC or Scooter?: Yes Wheel 50 feet with 2 turns (QC: 4 1 Step (curb) (QC): 2 4 Steps (QC): 88 12 Steps (QC): 88 Picking up an Object (QC): 88 OT Skilled Nursing Goals Photography Intern Goals Time Frame: Aug 26, 2020 Eating (FIM): 6 Eating (QC): 5 (notmet) Oral Hygiene (QC): 4 (notmet) Shower/Bathe Self (QC): 3 (notmet) Upper Body Dressing (QC): 5 (notem) Lower Body Dressing (QC): 3 (not met) On/Off Footwear (QC): 3 (not met) Toileting(FIM): 6 Toileting Hygiene (QC): 3 (notmet) Toilet/Commode Transfer (QC): 3 Additional Goals: 1-Demonstrate ADL Tasks, 2-Verbalize Understanding, 3- ImproveStrength/Nieves 1=Demonstrate adherence to instructed precautions during ADL tasks. 2=Patient will verbalize/demonstrate understanding of assistive devices/modifications for ADL. 3=Patient will improve strength/tolerance for activity to enable patient to perform ADL's. Speech Photography Intern Goals Skilled Nursing Goals Patient will improve communication for needs to be met. ADITHYA KAMARA OT Aug 05, 2020 08:14
--- NOTE | 2020-08-05 09:14 | Therapy Team Discharge Summary ---
Therapy Discharge Summary Discharge Recommendations Date of Discharge Aug 04, 2020 at 12:45 Physical Therapy Patient came to rehab following a CVA. Upon evaluation patient was dependent for bed mobility and transfers and WC mobility. She would not follow directions and had trouble communicating and participating in therapy. Patient had been performing bed mobility and transfer training, standing, WC mobility training, ADL training. Patient has not made any progress toward her LTG's. Patient had a decline in medical condition and had to transfer to the medical floor. Patient will be discharged from PT at this time. Occupational Therapy Decreased Activ Tolerance, Decreased Safety Aware, Decreased UE Strength, Dependent Transfers, Impaired Bed Mobility, Impaired Cognition, Impaired Funct Balance, Impaired I ADL's, Impaired Self-Care Skills, Restricted Funct UE ROM PT Group Home Goals Forensic Technician Goals PT Forensic Technician Goals Time Frame: Aug 22, 2020 Roll Left to Right (QC): 3 Sit to Lying (QC): 3 Lying-Sitting on Side/Bed(QC): 3 Sit to Stand (QC): 3 Chair/Ipz-tz-Rslnj Xfer(QC): 3 Car Transfer (QC): 3 Does the Patient Walk: No and Walking Goal IS indicated Walk 10 feet (QC): 3 Walk 10ft-Uneven Surface(QC): 3 Walk 50ft with 2 Turns (QC): 88 Walk 150 ft (QC): 88 Does the Pt use WC or Scooter?: Yes Wheel 50 feet with 2 turns (QC: 4 1 Step (curb) (QC): 2 4 Steps (QC): 88 12 Steps (QC): 88 Picking up an Object (QC): 88 OT Forensic Technician Goals Forensic Technician Goals Time Frame: Aug 26, 2020 Eating (FIM): 6 Eating (QC): 5 (notmet) Oral Hygiene (QC): 4 (notmet) Shower/Bathe Self (QC): 3 (notmet) Upper Body Dressing (QC): 5 (notem) Lower Body Dressing (QC): 3 (not met) On/Off Footwear (QC): 3 (not met) Toileting(FIM): 6 Toileting Hygiene (QC): 3 (notmet) Toilet/Commode Transfer (QC): 3 Additional Goals: 1-Demonstrate ADL Tasks, 2-Verbalize Understanding, 3- ImproveStrength/Nieves 1=Demonstrate adherence to instructed precautions during ADL tasks. 2=Patient will verbalize/demonstrate understanding of assistive devic es/modifications for ADL. 3=Patient will improve strength/tolerance for activity to enable patient to perform ADL's. Speech Group Home Goals Forensic Technician Goals Patient will improve communication for needs to be met. IAN LARKIN PT Aug 05, 2020 09:14
--- NOTE | 2020-08-05 12:30 | Therapy Team Discharge Summary ---
Therapy Discharge Summary Discharge Recommendations Date of Discharge Aug 04, 2020 at 12:45 Occupational Therapy Decreased Activ Tolerance, Decreased Safety Aware, Decreased UE Strength, Depe ndent Transfers, Impaired Bed Mobility, Impaired Cognition, Impaired Funct Balance, Impaired I ADL's, Impaired Self-Care Skills, Restricted Funct UE ROM Speech-Language Pathology Patient was admitted to the ARU s/p CVA. Patient was discharged to acute floor on 08/04/2020 due to decline in medical status. PT Radiation Protection Technician Goals Radiation Protection Technician Goals PT Retirement Goals Time Frame: Aug 22, 2020 Roll Left to Right (QC): 3 Sit to Lying (QC): 3 Lying-Sitting on Side/Bed(QC): 3 Sit to Stand (QC): 3 Chair/Qvu-ss-Rdsgs Xfer(QC): 3 Car Transfer (QC): 3 Does the Patient Walk: No and Walking Goal IS indicated Walk 10 feet (QC): 3 Walk 10ft-Uneven Surface(QC): 3 Walk 50ft with 2 Turns (QC): 88 Walk 150 ft (QC): 88 Does the Pt use WC or Scooter?: Yes Wheel 50 feet with 2 turns (QC: 4 1 Step (curb) (QC): 2 4 Steps (QC): 88 12 Steps (QC): 88 Picking up an Object (QC): 88 OT Retirement Goals Retirement Goals Time Frame: Aug 26, 2020 Eating (FIM): 6 Eating (QC): 5 (notmet) Oral Hygiene (QC): 4 (notmet) Shower/Bathe Self (QC): 3 (notmet) Upper Body Dressing (QC): 5 (notem) Lower Body Dressing (QC): 3 (not met) On/Off Footwear (QC): 3 (not met) Toileting(FIM): 6 Toileting Hygiene (QC): 3 (notmet) Toilet/Commode Transfer (QC): 3 Additional Goals: 1-Demonstrate ADL Tasks, 2-Verbalize Understanding, 3- ImproveStrength/Nieves 1=Demonstrate adherence to instructed precautions during ADL tasks. 2=Patient will verbalize/demonstrate understanding of assistive devic es/modifications for ADL. 3=Patient will improve strength/tolerance for activity to enable patient to perform ADL's. Speech Retirement Goals Radiation Protection Technician Goals Patient will improve communication for needs to be met. LOYD CRUZ Aug 05, 2020 12:30
[2020-08-05] MEDS ORDERED: MORP20SO PO ×2 (17:30)
[2020-08-05] MEDS ORDERED: LORA2ORA PO ×2 (17:30)
== END 2020-08-04 12:45 | disposition hospice, inpatient (51) | DRG 949 ==
PROVIDERS: ADMIT Internal Medicine; ATTEND Internal Medicine
DX: S06.6X9D Traumatic subarachnoid hemorrhage with loss of consciousness of unspecified duration, subsequent encounter (principal); G90.523 Complex regional pain syndrome I of lower limb, bilateral; R64 Cachexia; F11.20 Opioid dependence, uncomplicated; Z66 Do not resuscitate; Z51.5 Encounter for palliative care; I48.0 Paroxysmal atrial fibrillation; M81.0 Age-related osteoporosis without current pathological fracture; K21.9 Gastro-esophageal reflux disease without esophagitis; G62.9 Polyneuropathy, unspecified; F41.9 Anxiety disorder, unspecified; M54.9 Dorsalgia, unspecified; R29.818 Other symptoms and signs involving the nervous system; S22.000D Wedge compression fracture of unspecified thoracic vertebra, subsequent encounter for fracture with routine healing; J44.9 Chronic obstructive pulmonary disease, unspecified; E78.5 Hyperlipidemia, unspecified; I27.20 Pulmonary hypertension, unspecified; R15.9 Full incontinence of feces; I25.10 Atherosclerotic heart disease of native coronary artery without angina pectoris; I27.81 Cor pulmonale (chronic); I12.9 Hypertensive chronic kidney disease with stage 1 through stage 4 chronic kidney disease, or unspecified chronic kidney disease; I65.23 Occlusion and stenosis of bilateral carotid arteries; N18.9 Chronic kidney disease, unspecified; I73.81 Erythromelalgia; R32 Unspecified urinary incontinence; N31.9 Neuromuscular dysfunction of bladder, unspecified; I08.3 Combined rheumatic disorders of mitral, aortic and tricuspid valves; R33.9 Retention of urine, unspecified; W19.XXXD Unspecified fall, subsequent encounter; Z85.51 Personal history of malignant neoplasm of bladder; Z79.01 Long term (current) use of anticoagulants; Z91.81 History of falling
CPT/HCPCS: 36415; 80053; 85025

== ENCOUNTER 2020-08-04 12:29 | Inpatient (IN) | payer MEDICARE, OTHER ==
[~2020-08-04] VITALS: Ht 160 cm; Wt 50.9 kg
[~2020-08-04 12:29] MED LIST changes: +ACET325T38 PO; +ASPI325T32 PO; +ATOR20TA66 PO; +BISA10SU58 RC; +DILT120C82 PO; +DOCU-143 PO; +FURO80TA83 PO; +HEPARIN SQ; +MELA3TAB39 PO; +MODA100T27 PO; +POTA-51 PO; +SENN-273 PO
[2020-08-04] MEDS ORDERED: BISACODYL 10 MG SUPP (DULCOLAX) PR PRN (12:45)
[2020-08-04] MEDS ORDERED: ARTIFICAL TEARS 0.4 ML UNIT DOSE (REFRESH PLUS) OU PRN (12:45)
[2020-08-04] MEDS ORDERED: morphine INJ 4 MG/ML 1 ML (VIAL/SYRINGE) IV PRN (12:45)
[2020-08-04] MEDS ORDERED: RT-ALBUTEROL/IPRATROPIUM 3 ML (DUONEB) VIAL INH PRN (12:45)
[2020-08-04] MEDS ORDERED: ONDANSETRON 4 MG/2 ML (SDV) Z0FRAN IVP PRN (12:45)
[2020-08-04] MEDS ORDERED: GLYCOPYRROLATE 0.2 MG/ML (ROBINUL) 2 ML VIAL IV PRN (12:45)
[2020-08-04] MEDS ORDERED: SALIVA STIMULANT MOUTH SPRAY (BIOTENE) 1.5 OZ MM PRN (12:45)
[2020-08-04] MEDS ORDERED: LORazepam INJ 2 MG/ML (ATIVAN) VIAL IVP PRN (12:45)
[2020-08-04] MEDS ORDERED: ACETAMINOPHEN 650 MG SUPP (TYLENOL) PR PRN (12:45)
--- NOTE | 2020-08-04 14:04 | NUR ---
PALLIATIVE CARE RN in to see patient. She is resting in her bed, with HOB slightly elevated to 15 to 20*. Noted that her oral cavity is full of bubbly saliva, it was not thick nor did it look like emesis. Suction supplies were available in the room so I got them hooked up and then suctioned her oral cavity. She did have some response when I attempted to suction deep behind her tongue. She did not open her eyes or have any attempt to respond to verbal or tactile stimulation. Nurse was updated and she reports having her as a patient on INPT REHAB. SHe indicated she knows that she is not right because she is allowing her to touch her feet and have the blanket on the..she normally does not due to a nerve condition. Unsure what is going on with her as no notes yet in chart. Will continue to follow.
--- NOTE | 2020-08-04 14:20 | NUR ---
Pastoral care visit, pt was not responsive, sat with pt a few minutes and offered prayer.
[2020-08-04] MEDS ORDERED: LORazepam ORAL CONCENTRATE 2 MG/ML 30 ML (ATIVAN) PO PRN (18:45)
[2020-08-04] MEDS ORDERED: morphine (ROXINOL) 10 MG/0.5 ML oral conc 0.5 ML PO PRN (18:45)
--- NOTE | 2020-08-04 21:06 | Progress Note ---
Progress Note Patient admitted for comfort care after 5 days in IRF without much progress but had improved last night and interacted on phone with family but this am she became gurgling and unresponsive and it was at that time she was deemed end of life and maintain DNR and updated daughter due to no recovery potential so family was brought in to be with her in last stage of her life. DOLORES WEEKS DO Aug 04, 2020 21:06
--- NOTE | 2020-08-05 09:50 | Progress Note - Urology ---
Progress Note-Urology Progress Notes/Assess & Plan Progress/Assessment & Plan DETERIORATED YESTERDAY. ON COMFORT CARE. HOWARD IN. OFF FLOMAX AND URECHOLINE. WILL SEE PRN Final Diagnosis RETENTION TELLY SEGOVIA MD Aug 05, 2020 09:50
--- NOTE | 2020-08-05 10:32 | NUR ---
PALLIATIVE CARE RN in to see patient. Daughter in room at this time. Patient is responsive to touch and verbal cues a.e.b. facial movements. She allows for oral care which was demonstrated to the daughter for later efforts. I applied Fairburn's Bees Wax to her lips and provided education on the NON use of Vaseline. Patient does appear to have lost some fluid in the night as her cheeks are more drawn and her feet are wrinkled. 2+ pedal pulses. I spoke with daughter outside the room about options to POC to include discharge to home with Hospice. Due to the very large family it might be the better option. She is to speak with her brother, in [place] and let this RN know the decision. No options of hospice have been discussed as of yet.
--- NOTE | 2020-08-05 11:51 | Short Stay Summary-Hospitalist ---
History of Present Illness HPI/Chief Complaint CC: End of life status HPI: This is an 85yoWF who failed inpatient rehab, became unresponsive and she is in a terminal stage of her life with upper respiratory rattle. Daughter is at the bedside and arranging for hospice. Source: RN/MD Exam Limitations: clinical condition Date Seen 08/05/20 Time Seen by a Provider: 10:30 Attending Physician Tatiana Nye DO PCP No,Local Physician Referring Physician Date of Admission Aug 04, 2020 at 13:04 Home Medications & Allergies Home Medications Reviewed patient Home Medication Reconciliation performed by pharmacy medication reconciliations instrumentation technician and/or nursing. Patients Allergies have been reviewed. Allergies Allergies Coded Allergies Penicillins (Verified Allergy, Unknown, 07/31/20) hydrochlorothiazide (Verified Allergy, Unknown, 07/31/20) metoprolol (Unverified Allergy, Unknown, 04/10/18) Tetracyclines (Verified Adverse Reaction, Intermediate, SEVERE HEARTBURN, 04/10/18) Severe Heartburn amiodarone (Verified Adverse Reaction, Intermediate, MADE HER COLD, 04/10/18) clindamycin (Verified Adverse Reaction, Mild, HEARTBURN, 04/10/18) Past Attycdo-Zsdcfb-Teaktq Hx Past Med/Social Hx: Reviewed Nursing Past Med/Soc Hx, Reviewed and Corrections made Patient Social History Alcohol Use: Denies Use Alcohol Beverage of Choice: Wine, Other Recreational Drug Use: No 2nd Hand Smoke Exposure: No Recent Foreign Travel: No Contact w/other who traveled: No Recent Hopitalizations: Yes ([facility] ) Recent Infectious Disease Expo: No Immunizations Up To Date Tetanus Booster (TDap): Unknown Pediatric: Yes Date of Pneumonia Vaccine: Jun 30, 2017 Date of Influenza Vaccine: Oct 17, 2017 Seasonal Allergies Seasonal Allergies: Yes Past Medical History Surgeries: Appendectomy, Hysterectomy, Neurological, Orthopedic, Tonsillectomy Currently Using CPAP: No Currently Using BIPAP: No Cardiac: Atrial Fibrillation, Hypertension, Valvular Heart Disease Neurological: Neuropathy, Stroke Reproductive: No HIV/AIDS: No Hysterectomy Genitourinary: UTI-Chronic Gastrointestinal: Gastroesophageal Reflux Musculoskeletal: Osteoporosis, Arthritis, Chronic Back Pain Loss of Vision: Bilateral Psychosocial: Sleep Difficulties, Anxiety History of Blood Disorders: No Adverse Reaction to Blood Roe: No (N/A) Family History Patient reports no known family medical history. COPD Review of Systems Constitutional: see HPI Physical Exam Physical Exam Vital Signs Vital Signs - First Documented 08/04/20 14:03 O2 Delivery Nasal Cannula O2 Flow Rate 3.00 Capillary Refill : Less Than 3 Seconds Height, Weight, BMI Height: 5'3.00" Weight: 120lbs. 0.0oz. [id number]; 19.88 BMI Method:Stated General Appearance: No Apparent Distress, WD/WN, Other (unresponsive) Results Results/Procedures Labs Patient resulted labs reviewed. Short Stay Diagnosis Discharge Diagnosis-Short Stay Admission Diagnosis End of life Final Discharge Diagnosis End of life Conclusion Plan Comfort care Clinical Quality Measures DVT/VTE Risk/Contraindication: Risk Factor Score Per Nursin RFS Level Per Nursing on Admit: 4+=Very High TATIANA NYE DO Aug 05, 2020 11:51
--- NOTE | 2020-08-05 11:59 | NUR ---
PALLIATIVE CARE RN at the request of family has set up family meetings with [facility] for 1 p.m and with [facility] at 2p.m. They will meet down stairs to near registration to make an informed decision on choice. Once decision is made will make arrangements for DME to be delivered. Possible discharge today to home with hospice of choice.
--- NOTE | 2020-08-05 15:19 | NUR ---
FINAL DISCHARGE PLAN: After meeting with both [facility] and [facility] the family has chosen [facility] to be the provider of Hospice care at home. I have notified both of the decision. Clinical information has been sent to [facility]. They will need to have the equipment in place prior to our dispatching EMS to transport her home. I have provided patient's nurse Gayatri's cell number for them to contact when all is set up. Dr. Nye is aware of discharge and had already pended the discharge in anticipation. No other needs at this time.
--- NOTE | 2020-08-05 16:18 | NUR ---
spoke with Geremias at [facility] regarding updated on patient's home equipment. Geremias notified this RN that equipment is scheduled to be dropped off today at 630PM. Geremias stated that he will call this RN when medical equipment is in the home and ready for patient. EMS will then be called for transport once equipment is in the home
--- NOTE | 2020-08-05 17:03 | NUR ---
spoke with Elvira Sears RN regarding the need for PRN medications. Elvira stated she does not have orders for PRNS and since it is so late in the day if patient is not home by 8pm hospice doctor will not be able to get medications to patient for the night. Marlon notified and stated she already told hospice that they would need to order their own Meds as [facility] doctor did not order them Orion JARRELL was not happy with this response and asked if she could have [facility] doctors information in-order to request medications herself.
[2020-08-05] MEDS ORDERED: MORP20SO PO ×2 (17:30)
[2020-08-05] MEDS ORDERED: LORA2ORA PO ×2 (17:30)
== END 2020-08-05 19:17 | disposition hospice, home (50) | DRG 951 ==
LOC: 4TH 13:04
PROVIDERS: ADMIT Internal Medicine; ATTEND Internal Medicine
DX: Z51.5 Encounter for palliative care (principal); Z66 Do not resuscitate; R33.9 Retention of urine, unspecified